=== PATIENT | male | born 1945 | race Caucasian/White ===

== ENCOUNTER 2022-10-25 11:23 | Outpatient (REF) | payer MEDICARE, SELFPAY ==
--- NOTE | ~2022-10-25 | XR_ITS ---
EXAMINATION: XR THORACIC SPINE CLINICAL INFORMATION: Pain not resolving. COMPARISON: None available. TECHNIQUE: 3 views of the thoracic spine were obtained. FINDINGS: There is no fracture or bone destruction seen and the vertebral alignment is normal. Mild degenerative changes are seen with mild disc space narrowing throughout and spondylitic endplate changes. XR/XR thoracic spine 3V IMPRESSION: Mild degenerative changes. No acute finding.
== END 2022-10-25 11:24 | disposition home or self-care (01) ==
LOC: HO.XRAY 11:23
PROVIDERS: PCP Nurse Practitioner Family; Visit Provider Chiropractor
DX: M54.6 Pain in thoracic spine (principal)
CPT/HCPCS: 72072

== ENCOUNTER 2022-12-07 10:50 | Outpatient (REF) | payer MEDICARE, SELFPAY ==
--- NOTE | ~2022-12-07 | XR_ITS ---
EXAMINATION: XR CERVICAL SPINE CLINICAL INFORMATION: Cervical disc disorder. COMPARISON: CT cervical spine dated 12/11/2022. TECHNIQUE: Frontal, odontoid and lateral views of the cervical spine were obtained. FINDINGS: Vertebral body heights are normal. At C3-C4, there is a 2 mm anterolisthesis. At C4-C5, there is a 2 mm anterolisthesis. At C5-C6 and C6-C7, there is marked disc space narrowing. No acute fracture or spondylolisthesis is seen. This multi-level cervical spondylosis and facet arthropathy. The posterior elements are intact. The dens is intact. No prevertebral soft tissue swelling is seen. XR/XR cervical spine 2V IMPRESSION: 1. There is marked degenerative disease at C5-C6 and C6-C7, and mild degenerative disc disease seen at C3-C4 and C4-C5. 2. There is multi-level cervical spondylosis and facet arthropathy.
[2022-12-07 14:06] LABS: MANUAL DIFF FLAG NO
[2022-12-07 14:09] LABS: Urine Cytology See Pathology rpt
[2022-12-07 14:17] LABS: Basophils Percent Auto 0.4 % (0-2); Eosinophils Absolute Auto 0.1 X10*3/uL (0.0-0.4); Eosinophils Percent Auto 1.3 % (0-4); Hematocrit 48.4 % (42.0-52.0); Hemoglobin 15.9 g/dl (14.0-18.0); Imm Gran Abs Auto 0.06 X10*3/uL (0.00-0.03); Imm Gran Pct Auto 0.6 % (0.0-0.4); Lymphocytes Absolute Auto 1.6 X10*3/uL (1.2-4.9); Lymphocytes Percent Auto 15.1 % (20-40); Mean Corpuscular HGB Conc 32.9 g/dl (31.0-36.0); Mean Corpuscular Hemoglobin 31.7 pg (27.0-33.0); Mean Corpuscular Volume 96.6 fL (80.0-98.0); Mean Platelet Volume 10.4 fL (9.4-12.4); Monocytes Absolute Auto 0.7 X10*3/uL (0.1-1.2); Monocytes Percent Auto 6.9 % (2-11); Neutrophils Absolute Auto 8.1 x10*3/uL (2.0-8.3); Neutrophils Percent Auto 75.7 % (45-73); Platelet Count 302 X10*3/uL (160-400); Red Blood Count 5.01 X10*6/uL (4.60-5.80); Red Cell Distribution Width 12.4 % (11.0-16.0); White Blood Count 10.7 X10*3/uL (4.8-10.8)
[2022-12-07 14:20] LABS: Appearance Urine Clear; Color Urine Yellow; Glucose Urine UA Negative (Negative); Leukocyte Esterase Urine Negative (Negative); Nitrite Urine Negative (Negative); UMIC TRIGGER UACC YES; Urine Blood Trace (Negative); Urine Ketones Negative (Negative); Urine Protein Negative (Neg-Trace)
[2022-12-07 14:26] LABS: Bacteria Urine None Seen (None Seen); Hyaline Casts Urine 0-2 /LPF (0-2); Squamous Epithelial Cell Urine 0-2 /HPF (0-2); WBC Urine 0-5 /HPF (0-5)
[2022-12-07 14:27] LABS: Alanine Aminotransferase 28 U/L (0-40); Albumin Level 4.5 g/dL (3.5-5.0); Alkaline Phosphatase 127 U/L (39-117); Anion Gap 16 (12-20); Aspartate Amino Transferase 23 U/L (5-37); Bilirubin Total 0.7 mg/dL (0.0-1.0); Blood Urea Nitrogen 15 mg/dL (9-16); Calcium 9.7 mg/dL (8.4-10.2); Carbon Dioxide 27 mmol/L (22-29); Chloride 100 mmol/L (96-108); Cholesterol 248 mg/dL; Estimated Glomerular Filt Rate > 60; Glucose Fasting 92 mg/dL (60-99); HDL Cholesterol 42 mg/dL; LDL Cholesterol Calculated 179 mg/dl; Potassium 4.5 mmol/L (3.3-5.1); Sodium 138 mmol/L (135-145); Total Protein 7.3 g/dL (6.5-8.0); Triglycerides 139 mg/dL
[2022-12-07 14:45] LABS: Prostate Specific Antigen Scr 7.08 ng/mL (<0.05-4.0); TSH reflex Free T4 1.49 uIU/mL (0.32-4.0)
== END 2022-12-07 10:51 | disposition home or self-care (01) ==
LOC: HO.HMGCLDS 10:50
PROVIDERS: PCP Nurse Practitioner Family; Visit Provider Nurse Practitioner Family
DX: Z12.5 Encounter for screening for malignant neoplasm of prostate (principal); I10 Essential (primary) hypertension; R31.9 Hematuria, unspecified; M50.90 Cervical disc disorder, unspecified, unspecified cervical region
CPT/HCPCS: 36415; 72040; 80053; 80061; 81001; 84153; 84443; 85025; 87086; 88112

== ENCOUNTER 2022-12-11 10:49 | Emergency (ER) | payer MEDICARE, SELFPAY ==
--- NOTE | ~2022-12-11 | XR_ITS ---
EXAMINATION: XR CHEST CLINICAL INFORMATION: Reason for Exam Hand numbness COMPARISON: Thoracic spine radiographs 10/25/2022 TECHNIQUE: One view of the chest FINDINGS: Lines and tubes: EKG leads overlie the patient. Low lung volumes with asymmetric elevation of the right hemidiaphragm. Few patchy left retrocardiac opacities may reflect atelectasis, aspiration or infection. No pleural effusion. No pneumothorax. Normal cardiomediastinal silhouette. XR/XR chest 1V IMPRESSION: 1. Low lung volumes with asymmetric elevation of the right hemidiaphragm. 2. Few patchy left retrocardiac opacities may reflect atelectasis, aspiration or infection.
--- NOTE | ~2022-12-11 | CT_ITS ---
EXAMINATION: CT BRAIN AND CERVICAL SPINE WITHOUT CONTRAST CLINICAL INDICATIONS: Left hand numbness. COMPARISON: None. TECHNIQUE: 5 mm thin axial and reformatted 2 mm thin sagittal and coronal images of brain were obtained. Subsequently axial 3 mm thin and reformatted 2 mm thin sagittal coronal images of cervical spine were obtained. DLP: 1329 mGy-cm. FINDINGS: BRAIN: There is no acute intra-axial, extra-axial bleed, masses or midline shift. There is no acute infarction evolution. There is no edema. The quiroz to white matter difference is maintained normal. The lateral ventricles are symmetrical in size and configuration, but moderately enlarged. Bone windows reveal no calvarial abnormality. There is [id number] mucoperiosteal thickening of the right maxillary sinus. The rest of the paranasal sinuses and mastoid air cells are well-aerated. CERVICAL SPINE: There is mild straightening of cervical lordosis. The vertebral heights and alignment are normal. There is loss of C5-C6, C6-C7 and C7-T1 disc heights. The craniovertebral junction and the C1-C2 alignment is normal. There is moderate left C2-C3, C3-C4 and C4-C5 facet joint arthropathy. There is no acute fracture, dislocation or subluxation. The prevertebral and paravertebral soft tissues are normal. There is a 4 mm hypodensity in the left parotid gland. Otherwise the parotid and submandibular glands are symmetric and normal. The thyroid lobes are symmetric and normal. CT/CT cervical spine wo IV con IMPRESSION: 1. No acute intracranial process seen. 2. Degenerative disc changes C5-C6, C6-C7 and C7-T1 disc levels. No visible acute fracture, dislocation or subluxation seen.
--- NOTE | ~2022-12-11 | CT_ITS ---
EXAMINATION: CT BRAIN AND CERVICAL SPINE WITHOUT CONTRAST CLINICAL INDICATIONS: Left hand numbness. COMPARISON: None. TECHNIQUE: 5 mm thin axial and reformatted 2 mm thin sagittal and coronal images of brain were obtained. Subsequently axial 3 mm thin and reformatted 2 mm thin sagittal coronal images of cervical spine were obtained. DLP: 1329 mGy-cm. FINDINGS: BRAIN: There is no acute intra-axial, extra-axial bleed, masses or midline shift. There is no acute infarction evolution. There is no edema. The quiroz to white matter difference is maintained normal. The lateral ventricles are symmetrical in size and configuration, but moderately enlarged. Bone windows reveal no calvarial abnormality. There is apuek-mf-pvhvmajo mucoperiosteal thickening of the right maxillary sinus. The rest of the paranasal sinuses and mastoid air cells are well-aerated. CERVICAL SPINE: There is mild straightening of cervical lordosis. The vertebral heights and alignment are normal. There is loss of C5-C6, C6-C7 and C7-T1 disc heights. The craniovertebral junction and the C1-C2 alignment is normal. There is moderate left C2-C3, C3-C4 and C4-C5 facet joint arthropathy. There is no acute fracture, dislocation or subluxation. The prevertebral and paravertebral soft tissues are normal. There is a 4 mm hypodensity in the left parotid gland. Otherwise the parotid and submandibular glands are symmetric and normal. The thyroid lobes are symmetric and normal. CT/CT head/brain wo IV con IMPRESSION: 1. No acute intracranial process seen. 2. Degenerative disc changes C5-C6, C6-C7 and C7-T1 disc levels. No visible acute fracture, dislocation or subluxation seen.
[2022-12-11 10:53] VITALS: BP 173/82; PULSE 86; RESP 18; TEMP 36.8; O2SAT 97; BMI 30.7
--- NOTE | 2022-12-11 10:54 | ECG_ITS ---
Test Reason : HAND NUMBNESS Blood Pressure : / mmHG Vent. Rate : 082 BPM Atrial Rate : 082 BPM P-R Int : 190 ms QRS Dur : 070 ms QT Int : 346 ms P-R-T Axes : 032 030 065 degrees QTc Int : 404 ms Normal sinus rhythm Nonspecific T wave abnormality Abnormal ECG No previous ECGs available Referred By: Generic ED Physician Electronically Signed By:NANDO CARMONA
--- NOTE | 2022-12-11 11:39 | ED_ITS ---
HPI - Neuro Symptoms/Deficit General Chief Complaint: Neuro Symptoms/Deficit Stated Complaint: high bp l arm and hand numbness Time Seen by Provider: 12/11/22 11:31 Source: patient, RN notes reviewed and old records reviewed Mode of arrival: ambulatory History of Present Illness HPI Narrative: 77-year-old male with a past medical history of Alzheimer's, asthma, GERD, insomnia, osteoarthritis, sleep apnea, vitamin-D deficiency, presenting to ED complaining of left 1st-3rd digit numbness/tingling x1 week with mild radiation up LUE. Daughter reports patient recently saw PCP, had HTN in office was started on losartan/HCTZ, discussed numbness had outpatient neck x-ray and EMG/nerve conduction testing ordered. 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 Denies headache, vision changes/loss, weakness, CP/SOB, headache, lightheadedness/dizziness. Denies taking anticoagulation Onset (ago): week(s) Related Data Home Medications Medication Instructions Recorded Confirmed albuterol sulfate 90 mcg/actuation 2 puff inhalation Q6-8H 12/06/22 12/06/22 aerosol inhaler cholecalciferol (vitamin D3) 50 50 mcg PO DAILY 12/06/22 12/06/22 mcg (2,000 unit) capsule fluticasone 250 mcg-salmeterol 50 1 ea inhalation BID 12/06/22 12/06/22 mcg/dose blistr powdr for inhalation (Jordin Inhub) omeprazole 20 mg capsule,delayed 20 mg PO BID 12/06/22 12/06/22 release Previous Rx's Medication Instructions Recorded losartan 50 mg-hydrochlorothiazide 1 tab PO DAILY 30 days #30 tabs 12/06/22 12.5 mg tablet rosuvastatin 10 mg tablet 10 mg PO DAILY #90 tabs 12/07/22 Allergies Allergy/AdvReac Type Severity Reaction Status Date / Time No Known Allergies Allergy Verified 12/06/22 14:29 Review of Systems Review of Systems: Constitutional: No Fever, No Chills, No Fatigue, No Malaise ENT/Mouth: No Ear Pain, No Nasal Congestion, No sore throat, No Rhinorrhea, No Swallowing Difficulty Eyes: No Eye Pain, No Swelling, No Redness, No Vision Changes Cardiovascular: No Chest Pain, No SOB, No Edema, No Palpitations Respiratory: No Cough, No Sputum, No Wheezing, No Smoke Exposure, No Dyspnea Gastrointestinal: No Nausea, No Vomiting, No Diarrhea, No Constipation, No Abdominal pain Genitourinary: No irregular bleeding, No Dysuria, No Urinary Frequency, No Hematuria Musculoskeletal: +neck pain, No Myalgias, No Joint Swelling Skin: No Skin Lesions, No rash Neuro: No Weakness, + Numbness, + Paresthesias, No Loss of Consciousness, No Dizziness, No Headache Yes all other systems are reviewed and are negative Constitutional: Constitutional: Reports as per HPI Neurologic: Denies Abnormal speech present and Denies Sensory deficit (Neuro) [facility] Past Medical History Attestation statement: The following information was validated with the patient. Source: old records reviewed Medical History Alzheimer disease Asthma GERD (gastroesophageal reflux disease) Impotence Insomnia Lipoma Osteoarthritis Short-term memory loss Sleep apnea Testicular hypofunction Vitamin D deficiency Social History Social History Housing: Apartment Patient Tobacco Use Status: Never used Tobacco Smoked in Last 30 Days: No Second Hand Smoke Exposure: No Use of substances other than those prescribed or required for medical reasons: No Advance Directives: Yes Advance Directives on File: No service: Yes Current occupational status: retired Cognitive needs: No Hearing needs: No Vision needs: No Physical Exam Vital Signs: Vital Signs: Last Vital Signs Temp 98.2 F 12/11/22 14:30 Pulse 71 12/11/22 14:30 Resp 15 12/11/22 14:30 BP 140/78 H 12/11/22 14:30 Pulse Ox 96 12/11/22 14:30 O2 Del Method Room Air 12/11/22 14:30 BMI result Body Mass Index 30.7 Const: General: cooperative, healthy appearing and no acute distress Orientation/consciousness: patient oriented x3 Limitations: no limitations HEENT: Head: Yes normal to inspection and Yes atraumatic Ears: hearing grossly normal bilaterally General nose exam: Normal external nose present Face and sinus: Yes normal facial exam Throat: Yes posterior oropharynx normal, Yes uvula midline, No uvula laterally displaced and No uvular edema Eyes: General: appearance normal, both eyes and all related structures Pupils: Equal, round and reactive pupils present EOM: EOMs intact bilaterally Neck: Other: + palpable soft tissue lump noted to left posterior neck. No overlying erythema/warmth. Nontender Neck: Yes no meningeal signs and No anterior neck swelling Resp: Effort & Inspection: normal respiratory effort and no respiratory distress Auscultation: clear to auscultation bilaterally Cardio: Rate: regular rate Heart sounds: S1 normal heart sound present and S2 normal heart sound present GI: Inspection: Yes normal to inspection Palpation (GI): Soft to palpation, nontender, no guarding and not rigid : General: Yes no CVA tenderness Back/Spine/Pelvis: Back: no CVA tenderness Skin: Rashes: no rashes Wounds: no wounds Neuro: General: patient oriented x3, tone normal, moves all extremities, no meningeal signs, no focal motor deficits and CN's II-XI intact bilaterally Cr anial nerves: Yes CN's II-XII intact bilaterally, Yes Equal, round and reactive pupils present and Yes Bilaterally intact EOM present Cognition (Neuro): normal cognition (At baseline) Speech: No Abnormal speech present Gait exam (Neuro): Normal gait present Motor exam (neuro): 5/5 motor strength present throughout Sensory Exam: No Sensory deficit (Neuro) Extrem: General: Yes normal to inspection and Yes no pedal edema Course Course Course Narrative: -1300--no leukocytosis. Labs otherwise reassuring. UA negative XR chest 1V IMPRESSION: 1.? Low lung volumes with asymmetric elevation of the right hemidiaphragm. 2.? Few patchy left retrocardiac opacities may reflect atelectasis, aspiration or infection.? -1511--CT head/brain wo IV con/CT cervical spine wo IV con IMPRESSION: 1.? No acute intracranial process seen. ? 2.? Degenerative disc changes C5-C6, C6-C7 and C7-T1 disc levels. No visible acute fracture, dislocation or subluxation seen. ? > Results discussed with patient and family. Recommended close follow-up with PCP in follow-up for previously ordered neuromuscular stimulation testing. Discussed worrisome signs and symptoms and strict return precautions, and when to return to the emergency department. They verbalized understanding and feel safe for discharge at this time. Medical Decision Making Medical Decision Making MDM Narrative: 77-year-old male with a past medical history of Alzheimer's, asthma, GERD, insomnia, osteoarthritis, sleep apnea, vitamin-D deficiency, presenting to ED complaining of left 1st-3rd digit numbness/tingling x1 week with mild radiation up LUE. On exam vital signs stable, NAD, nontoxic appearing, no focal neuro deficits. Distal pulses intact. Sensation intact to light touch. Suspected lipoma to posterior neck without evidence of infection. Concern for subacute CVA vs metabolic abnormalities vs radiculopathy/nerve compression. Low suspicion for acute CVA/TIA, no evidence of infection Plan: EKG, labs, UA, CXR, head/C-spine CT Please refer to course for remaining clinical decision making, interpretation of labs/imaging results, and discussions with consultants and/or family members. Differential Diagnosis Differential Diagnoses: The differential diagnosis associated with the presentation includes As above Admission/Observation Consideration of admission/observation: Escalation of care including admission/observation considered Lab Data MDM Lab Attestation statement: I reviewed the patient's lab results. 12/11/22 12:04 12/11/22 12:04 Labs: Lab Results 12/11/22 12/11/22 12/11/22 Range/Units 12:04 12:04 12:04 WBC 9.6 (4.8-10.8) X10*3/uL RBC 4.72 (4.60-5.80) X10*6/uL Hgb 14.8 (14.0-18.0) g/dl Hct 45.4 (42.0-52.0) % MCV 96.2 (80.0-98.0) fL MCH 31.4 (27.0-33.0) pg MCHC 32.6 (31.0-36.0) g/dl RDW 12.1 (11.0-16.0) % Plt Count 277 (160-400) X10*3/uL MPV 9.5 (9.4-12.4) fL Immature Gran % (Auto) 0.3 (0.0-0.4) % Neut % (Auto) 74.6 H (45-73) % Lymph % (Auto) 14.9 L (20-40) % [place] % (Auto) 8.5 (2-11) % Eos % (Auto) 1.3 (0-4) % Baso % (Auto) 0.4 (0-2) % Lymph # (Auto) 1.4 (1.2-4.9) X10*3/uL [place] # (Auto) 0.8 (0.1-1.2) X10*3/uL Eos # (Auto) 0.1 (0.0-0.4) X10*3/uL Baso # (Auto) 0.0 (0.0-0.2) X10*3/uL Abs Immat Gran (auto) 0.03 (0.00-0.03) X10*3/uL Absolute Neuts (auto) 7.1 (2.0-8.3) x10*3/uL Absolute Nucleated RBC 0.000 (0.0-0.012) X10*3/uL Nucleated RBC % (auto) 0.0 (0.0-0.2) /100WBC PT 11.1 (10.0-13.1) SEC INR 1.0 (0.9-1.1) Sodium 139 (135-145) mmol/L Potassium 4.0 (3.3-5.1) mmol/L Chloride 100 (96-108) mmol/L Carbon Dioxide 30 H (22-29) mmol/L Anion Gap 13 (12-20) BUN 16 (9-16) mg/dL Creatinine 0.99 (0.5-1.4) mg/dL Estim Creat Clear Calc 70.8 Estimated GFR > 60 Random Glucose 110 (60-115) mg/dL Calcium 9.5 (8.4-10.2) mg/dL Magnesium 2.3 (1.6-2.6) mg/dL Total Bilirubin 0.7 (0.0-1.0) mg/dL Direct Bilirubin 0.2 (0.0-0.5) mg/dL AST 25 (5-37) U/L ALT 32 (0-40) U/L Alkaline Phosphatase 120 H (39-117) U/L Troponin I High Sens (<3.5-35.0) ng/L Total Protein 7.0 (6.5-8.0) g/dL Albumin 4.4 (3.5-5.0) g/dL Urine Color Urine Appearance Urine pH (5.0-9.0) Ur Specific [place] (1.005-1.025) Urine Protein (Neg-Trace) mg/dL Urine Glucose (UA) (Negative) mg/dL Urine Ketones (Negative) mg/dL Urine Blood (Negative) Urine Nitrite (Negative) Ur Leukocyte Esterase (Negative) 12/11/22 12/11/22 Range/Units 12:04 12:04 WBC (4.8-10.8) X10*3/uL RBC (4.60-5.80) X10*6/uL Hgb (14.0-18.0) g/dl Hct (42.0-52.0) % MCV (80.0-98.0) fL MCH (27.0-33.0) pg MCHC (31.0-36.0) g/dl RDW (11.0-16.0) % Plt Count (160-400) X10*3/uL MPV (9.4-12.4) fL Immature Gran % (Auto) (0.0-0.4) % Neut % (Auto) (45-73) % Lymph % (Auto) (20-40) % [place] % (Auto) (2-11) % Eos % (Auto) (0-4) % Baso % (Auto) (0-2) % Lymph # (Auto) (1.2-4.9) X10*3/uL [place] # (Auto) (0.1-1.2) X10*3/uL Eos # (Auto) (0.0-0.4) X10*3/uL Baso # (Auto) (0.0-0.2) X10*3/uL Abs Immat Gran (auto) (0.00-0.03) X10*3/uL Absolute Neuts (auto) (2.0-8.3) x10*3/uL Absolute Nucleated RBC (0.0-0.012) X10*3/uL Nucleated RBC % (auto) (0.0-0.2) /100WBC PT (10.0-13.1) SEC INR (0.9-1.1) Sodium (135-145) mmol/L Potassium (3.3-5.1) mmol/L Chloride (96-108) mmol/L Carbon Dioxide (22-29) mmol/L Anion Gap (12-20) BUN (9-16) mg/dL Creatinine (0.5-1.4) mg/dL Estim Creat Clear Calc Estimated GFR Random Glucose (60-115) mg/dL Calcium (8.4-10.2) mg/dL Magnesium (1.6-2.6) mg/dL Total Bilirubin (0.0-1.0) mg/dL Direct Bilirubin (0.0-0.5) mg/dL AST (5-37) U/L ALT (0-40) U/L Alkaline Phosphatase (39-117) U/L Troponin I High Sens < 2.7 (<3.5-35.0) ng/L Total Protein (6.5-8.0) g/dL Albumin (3.5-5.0) g/dL Urine Color Yellow Urine Appearance Clear Urine pH 6.5 (5.0-9.0) Ur Specific [place] 1.015 (1.005-1.025) Urine Protein Negative (Neg-Trace) mg/dL Urine Glucose (UA) Negative (Negative) mg/dL Urine Ketones Negative (Negative) mg/dL Urine Blood Negative (Negative) Urine Nitrite Negative (Negative) Ur Leukocyte Esterase Negative (Negative) Radiology Impression Discussion of test interpretation with radiology: I have reviewed the radiologist's reading. External Record Review External record reviewed: Inpatient record, Office record, Outpatient record, Prior outpatient labs, Prior outpatient radiology, Primary care record and Outside ED record Tests considered The following testing was considered but not selected: As above Discharge Plan Discharge Clinical Impression: Pneumonia Prescriptions: No Action rosuvastatin 10 mg tablet 10 mg PO DAILY Qty: 90 0RF albuterol sulfate 90 mcg/actuation HFA aerosol inhaler 2 puff inhalation Q6-8H omeprazole 20 mg capsule,delayed release(DR/EC) 20 mg PO BID fluticasone propion-salmeterol [Wixela Inhub] 250-50 mcg/dose blister with device 1 ea inhalation BID cholecalciferol (vitamin D3) 50 mcg (2,000 unit) capsule 50 mcg PO DAILY losartan-hydrochlorothiazide 50-12.5 mg tablet 1 tab PO DAILY 30 Days Qty: 30 3RF
[2022-12-11 12:09] LABS: MANUAL DIFF FLAG NO
[2022-12-11 12:11] VITALS: BP 138/81; PULSE 82; RESP 16; TEMP 37.2; O2SAT 96
[2022-12-11 12:12] LABS: Basophils Percent Auto 0.4 % (0-2); Eosinophils Absolute Auto 0.1 X10*3/uL (0.0-0.4); Eosinophils Percent Auto 1.3 % (0-4); Hematocrit 45.4 % (42.0-52.0); Hemoglobin 14.8 g/dl (14.0-18.0); Imm Gran Abs Auto 0.03 X10*3/uL (0.00-0.03); Imm Gran Pct Auto 0.3 % (0.0-0.4); Lymphocytes Absolute Auto 1.4 X10*3/uL (1.2-4.9); Lymphocytes Percent Auto 14.9 % (20-40); Mean Corpuscular HGB Conc 32.6 g/dl (31.0-36.0); Mean Corpuscular Hemoglobin 31.4 pg (27.0-33.0); Mean Corpuscular Volume 96.2 fL (80.0-98.0); Mean Platelet Volume 9.5 fL (9.4-12.4); Monocytes Absolute Auto 0.8 X10*3/uL (0.1-1.2); Monocytes Percent Auto 8.5 % (2-11); Neutrophils Absolute Auto 7.1 x10*3/uL (2.0-8.3); Neutrophils Percent Auto 74.6 % (45-73); Platelet Count 277 X10*3/uL (160-400); Red Blood Count 4.72 X10*6/uL (4.60-5.80); Red Cell Distribution Width 12.1 % (11.0-16.0); White Blood Count 9.6 X10*3/uL (4.8-10.8)
[2022-12-11 12:13] LABS: Appearance Urine Clear; Color Urine Yellow; Glucose Urine UA Negative (Negative); Leukocyte Esterase Urine Negative (Negative); Nitrite Urine Negative (Negative); PH 6.5 (5.0-9.0); Specific Gravity - Urine 1.015 (1.005-1.025); Urine Blood Negative (Negative); Urine Ketones Negative (Negative); Urine Protein Negative (Neg-Trace)
[2022-12-11 12:18] LABS: Prothrombin Time 11.1 SEC (10.0-13.1)
[2022-12-11 12:41] LABS: Alanine Aminotransferase 32 U/L (0-40); Albumin Level 4.4 g/dL (3.5-5.0); Alkaline Phosphatase 120 U/L (39-117); Anion Gap 13 (12-20); Aspartate Amino Transferase 25 U/L (5-37); Bilirubin Direct 0.2 mg/dL (0.0-0.5); Bilirubin Total 0.7 mg/dL (0.0-1.0); Blood Urea Nitrogen 16 mg/dL (9-16); Calcium 9.5 mg/dL (8.4-10.2); Carbon Dioxide 30 mmol/L (22-29); Chloride 100 mmol/L (96-108); Creatinine Clr Calc Pharmacy 70.8; Estimated Glomerular Filt Rate > 60; Glucose Random 110 mg/dL (60-115); Magnesium 2.3 mg/dL (1.6-2.6); Sodium 139 mmol/L (135-145)
[2022-12-11 12:53] LABS: Troponin-I High Sensitivity < 2.7 ng/L (<3.5-35.0)
[2022-12-11 14:30] VITALS: BP 140/78; PULSE 71; RESP 15; TEMP 36.8; O2SAT 96
== END 2022-12-11 15:44 | disposition home or self-care (01) ==
PROVIDERS: Physician Assistant; Emergency Provider Internal Medicine; PCP Nurse Practitioner Family
DX: J18.9 Pneumonia, unspecified organism (principal); R20.0 Anesthesia of skin; M50.33 Other cervical disc degeneration, cervicothoracic region; I10 Essential (primary) hypertension; E78.5 Hyperlipidemia, unspecified; G30.9 Alzheimer's disease, unspecified; F02.80 Dementia in other diseases classified elsewhere, unspecified severity, without behavioral disturbance, psychotic disturbance, mood disturbance, and anxiety; Z86.018 Personal history of other benign neoplasm; Z79.02 Long term (current) use of antithrombotics/antiplatelets; Z79.899 Other long term (current) drug therapy
CPT/HCPCS: 36415; 70450; 71045; 72125; 80048; 80076; 81003; 83735; 84484; 85025; 85610; 93005; 99284

== ENCOUNTER 2022-12-15 12:17 | Outpatient (REF) | payer MEDICARE, SELFPAY ==
--- NOTE | ~2022-12-15 | US_ITS ---
EXAMINATION: US RETROPERITONEAL COMPLETE (RENAL) CLINICAL INFORMATION: Hematuria, unspecified. COMPARISON: None available. TECHNIQUE: Real-time imaging of the kidneys and bladder. FINDINGS: RIGHT KIDNEY: 11.7 x 5.6 x 5.6 cm (SAG x AP x TRV). The kidney is normal in size, contour, and echogenicity. Renal cortical thickness is normal. No renal calculi or hydronephrosis. There is anechoic cyst in midpole measuring 1.4 x 1.7 x 1.4 cm. LEFT KIDNEY: 10.4 x 5.1 x 4.6 cm (SAG x AP x TRV). The kidney is normal in size, contour, and echogenicity. Renal cortical thickness is normal. No calculi or focal parenchymal lesions. No hydronephrosis. BLADDER: Well distended and normal. Bilateral ureteral jets are demonstrated. Prevoid bladder volume is 240 mL. Postvoid bladder volume is 41.4 mL. ADDITIONAL FINDINGS: The prostate is enlarged. It measures 56.9 mL volume. US/US retroperitoneal comp IMPRESSION: 1. Anechoic cyst midpole right kidney. 2. No echogenic stones or hydronephrosis seen. 3. Small postvoid residual bladder volume. 4. Moderate prostate enlargement.
== END 2022-12-15 12:18 | disposition home or self-care (01) ==
LOC: HO.US 12:17
PROVIDERS: PCP Nurse Practitioner Family; Visit Provider Nurse Practitioner Family
DX: R31.9 Hematuria, unspecified (principal)
CPT/HCPCS: 76770

== ENCOUNTER → 2022-12-31 09:37 | Outpatient (BNVA) | payer MEDICARE, SELFPAY | PROVIDERS: PCP Nurse Practitioner Family; Visit Provider Nurse Practitioner Family | DX: R31.0 Gross hematuria (principal); R97.20 Elevated prostate specific antigen [PSA] | CPT/HCPCS: 99202 ==

== ENCOUNTER 2023-01-04 11:57 | Outpatient (REF) | payer MEDICARE, SELFPAY ==
[2023-01-04 15:57] LABS: Blood Urea Nitrogen 18 mg/dL (9-16); Estimated Glomerular Filt Rate > 60
[2023-01-04 15:58] LABS: Gamma Glutamyl Transpeptidase 31 U/L (11-51)
[2023-01-04 16:02] LABS: PSA,Total (Free>4and<10) 7.17 ng/mL (0.00-4.00)
[2023-01-04 16:26] LABS: Appearance Urine Clear; Color Urine Yellow; Glucose Urine UA Negative (Negative); Leukocyte Esterase Urine Negative (Negative); Nitrite Urine Negative (Negative); PH 7.5 (5.0-9.0); Specific Gravity - Urine 1.015 (1.005-1.025); Urine Blood Negative (Negative); Urine Ketones Negative (Negative); Urine Protein Negative (Neg-Trace)
[2023-01-05 13:46] LABS: Urine Cytology See Pathology rpt
[2023-01-09 05:48] LABS: Alk.Phos Iso. Macrohepatic 0 % (<=0); Alk.Phos Isoenzymes Bone 35 % (28-66); Alk.Phos Isoenzymes Intest 10 % (1-24); Alk.Phos Isoenzymes Liver 55 % (25-69); Alk.Phos Isoenzymes Placental 0 % (<=0); Alk.Phos Isoenzymes Total 93 U/L (35-144)
[2023-01-10 12:09] LABS: Free Prostate Spec Ag 0.8 ng/mL; Percent Free Prostate Spec Ag 12 % (calc) (>25); Prostate Specific Ag Total 6.9 ng/mL (< OR = 4.0)
== END 2023-01-04 11:58 | disposition home or self-care (01) ==
LOC: HO.HMGCLDS 11:57
PROVIDERS: Absent Provider Nurse Practitioner Family; PCP Nurse Practitioner Family; Visit Provider Nurse Practitioner Family
DX: Z12.5 Encounter for screening for malignant neoplasm of prostate (principal); R74.8 Abnormal levels of other serum enzymes; R31.0 Gross hematuria; R97.20 Elevated prostate specific antigen [PSA]; R31.9 Hematuria, unspecified; I10 Essential (primary) hypertension
CPT/HCPCS: 36415; 81003; 82565; 82977; 84080; 84153; 84154; 84520; 88112

== ENCOUNTER 2023-02-01 11:23 | Outpatient (REF) | payer MEDICARE, SELFPAY ==
[2023-02-01 14:40] LABS: Cholesterol 149 mg/dL; HDL Cholesterol 52 mg/dL; LDL Cholesterol Calculated 73 mg/dl; Triglycerides 123 mg/dL
== END 2023-02-01 11:24 | disposition home or self-care (01) ==
LOC: HO.HMGCLDS 11:23
PROVIDERS: PCP Nurse Practitioner Family; Visit Provider Nurse Practitioner Family
DX: E78.5 Hyperlipidemia, unspecified (principal)
CPT/HCPCS: 36415; 80061

== ENCOUNTER 2023-02-04 09:35 | Outpatient (REF) | payer MEDICARE, SELFPAY ==
--- NOTE | ~2023-02-04 | CT_ITS ---
EXAMINATION: CT ABDOMEN AND PELVIS WITHOUT AND WITH CONTRAST CLINICAL INFORMATION: Gross hematuria. COMPARISON: Ultrasound retroperitoneum 12/15/2022. TECHNIQUE: Noncontrast CT of the abdomen and pelvis is performed followed by split bolus contrast-enhanced images using 85 mL Omnipaque 350 contrast.? Postcontrast imaging is performed during the combined nephrogram and excretion phase. Sagittal and coronal reformatted images were obtained on the technologist's workstation for both the precontrast and postcontrast phases. This CT examination was performed using dose optimization techniques as appropriate, variously including the following: *Automated exposure control *Adjustment of mA and/or kV according to patient size (this includes techniques or standardized protocols for targeted exams where dose is matched to indication/reason for exam; i.e. extremities or head) *Use of iterative reconstruction technique DLP: 1002 mGy-cm FINDINGS: LUNG BASES: The lung bases are expanded. There is a 4 mm nodule left lung base. LIVER, GALLBLADDER, AND BILIARY TREE: The liver is normal in size, shape, and attenuation. No focal hepatic lesion or biliary ductal dilatation is present. The gallbladder is unremarkable with no evidence of radiopaque gallstones, gallbladder wall thickening, or obvious pericholecystic inflammatory changes. PANCREAS: Unremarkable. SPLEEN: Unremarkable. ADRENAL GLANDS: Unremarkable. KIDNEYS AND URETERS: The kidneys are normal in size, shape, and attenuation. The left kidney measures 10.8 cm in length and the right kidney measures 10.9 cm in length. No hydronephrosis, hydroureter, or calculi seen. There is good opacification of bilateral kidney pelvises and ureters with no intraluminal filling defect or narrowing. There is mild bilateral perinephric stranding. There is a 1.8 cm partially exophytic cyst midpole right kidney. BLADDER: No bladder calculi or bladder wall thickening seen. GASTROINTESTINAL TRACT: The small and large bowel are unremarkable. The appendix is unremarkable. ABDOMINAL WALL: No significant hernia is appreciated. LYMPH NODES: Normal. VASCULAR: Unremarkable. PELVIC VISCERA: There is no free air or free fluid. The prostate gland is minimally enlarged. Periprostatic fat planes are preserved. OSSEUS STRUCTURES: No aggressive lytic or sclerotic process seen. CT/CT urogram IMPRESSION: 1. No radiopaque urolith or hydroureteronephrosis. There is a partially exophytic cyst midpole right kidney. 2. Mild prostate enlargement. 3. There is 4 mm nodule left lung base.
[2023-02-04] MEDS: iohexoL 350 MG/ML 100 ML INFUS..BTL IV (12:04)
== END 2023-02-04 09:36 | disposition home or self-care (01) ==
LOC: HO.CT 09:35
PROVIDERS: PCP Nurse Practitioner Family; Visit Provider Nurse Practitioner Family
DX: R31.0 Gross hematuria (principal)
CPT/HCPCS: 74178; Q9967

== ENCOUNTER 2023-02-09 12:33 | Outpatient (AMB) | payer MEDICARE, SELFPAY ==
--- NOTE | 2023-02-09 12:59 | A.OFFVIS_ITS ---
Intake Intake Visit Reasons: Cystoscopy/CT(02/04) Intake Note: Patient is present for Cystoscopy Urology Med: None Antibiotic Allergy: None Blood Thinner: None Disposable Cystoscope LOT: [id number] EXP: 12/06/24 Allergies No Known Allergies Allergy (Verified 02/09/23 13:01) Medication List - Last Reconciled 02/09/23 by Kristopher Vela MD albuterol sulfate 90 mcg/actuation 2 puffs inhalation Q6-8H cholecalciferol (vitamin D3) 50 mcg PO DAILY finasteride 5 mg PO DAILY 90 days fluticasone propion-salmeterol 250-50 mcg/dose (Wixela Inhub) 1 ea inhalation BID losartan-hydrochlorothiazide 50-12.5 mg 1 tab PO DAILY 30 days omeprazole 20 mg PO BID rosuvastatin 10 mg PO DAILY HPI HPI Comments History of Present Illness Details Oswaldo is a pleasant 77-year-old male patient of Dr. Kirkland who was accompanied by his daughter Lynette at today's visit. He has a past medical history of Alzheimer's disease, asthma, GERD, insomnia, osteoarthritis, sleep apnea, and vitamin-D deficiency. He presents to the office today as a new patient for an elevated PSA and gross hematuria. The daughter provides much of the information at today's visit as patient suffers from Alzheimer's disease. Patient recently moved here from [place]. In review of patient's chart it appears PSA 12/07 7.1. Recent retroperitoneal ultrasound results reviewed with the patient and his daughter today. Right kidney with no calculi, or hydronephrosis noted. There is an anechoic cyst in the mid pole measuring 1.4 x 1.7 x 1.4 cm. Left kidney with no lesions, calculi, or hydronephrosis noted. The bladder is well distended and normal. Bilateral ureteral jets are demonstrated. Prevoid bladder volume is 240 mL. Postvoid bladder volume is 41.4 mL. The prostate is enlarged. It measures approxitamtely 57 ml's. Discussed at length potential causes for elevated PSA as well as further gross hematuria workup. Patient denies any family history of prostate cancer. He denies any smoking history however has positive chemical exposure as he used to work at [email or web address] for many years. He otherwise denies any urinary issues or concerns at this time. He denies urinary urgency, urinary frequency, incontinence, nocturia, dysuria, foul smelling urine, changes to urinary stream, flank pain, fever, and or chills. He is happy with his current voiding parameters. Unable to obtain urine for urinalysis. PVR 22ml's. In office DALE; enlarged, smooth, no masses or nodules palpated. 01/07 6.9 12% Therapeutic plan - finasteride - 4 month follow-up PSA PFSH Medical History Alzheimer disease Asthma GERD (gastroesophageal reflux disease) Impotence Insomnia Lipoma Osteoarthritis Short-term memory loss Sleep apnea Testicular hypofunction Vitamin D deficiency Social History Housing: Apartment Patient Tobacco Use Status: Never used Tobacco Second Hand Smoke Exposure: No service: Yes Current occupational status: retired Cognitive needs: No Hearing needs: No Vision needs: No Review of Systems Const Denies chills and Denies fever(s) Card Reports no additional complaints and Denies syncope Resp Denies cough GI Denies abdominal pain and Denies heartburn Reports as per HPI and Denies change in libido Neuro Denies syncope Psych Denies change in libido Endo Denies change in libido Physical Exam Const General: cooperative, healthy appearing, comfortable and no acute distress Orientation/consciousness: patient oriented x3 HEENT Face and sinus: Yes normal facial exam Mouth: moist mucous membranes Neck Neck: Yes normal visual inspection, Yes full ROM and Yes trachea midline Chest Chest palpation & inspection: normal inspection of the chest Resp Effort & Inspection: normal respiratory effort, able to speak in complete sentences and no respiratory distress GI Inspection: Yes normal to inspection Back/Spine/Pelvis Cervical Spine: normal cervical lordosis Thoracic/Lumbar Spine: thoracic and lumbar spine normal to inspection Skin General skin exam: no rashes or lesions noted Neuro General: patient oriented x3, gait normal, tone normal and moves all extremities Extrem General: Yes normal to inspection and Yes capillary refill normal Office Procedures Cystoscopy Consent Discussed risk and benefit or proposed procedure with the patient. Information consent for procedure given to the patient. Discussed technical aspects, risks, benefits and alternatives in full. Addressed all of the patient's questions and concerns regarding the procedure. The patient demonstrated knowledge and understanding. They wish to proceed with this procedure. Preparation The patient was prepped in the usual manner. A barrel liner was present and in the room. Genitalia was prepped with betadine solution in a sterile manner. Lidocaine Jelly 2% was placed into the urethra and 16Fr flexible Olympus cystoscope was inserted into the meatus after adequate lubrication. Procedure Meatus normal position Urethra anterior posterior urethra normal Prostatic Urethra trilobar hypertrophy Bladder examination with retroflexion of cystoscope Bladder Orifices normal shape and position Bladder Capacity medium Trabeculations moderate Cellule Formation - Diverticulum Formation - Mucosal Erythema - Bladder Tumor - 74637-[id number] Procedure code (CPT) selection complete Office Meds lidocaine HCl Performing Provider: Kristopher Vela MD Administered by: MAURO Bocanegra on 02/09/23 13:17 Dose Route Admin Location Lot Number Expiration Date [place] [employer]ier [employer] 10 mL intra-urethral nitrofurantoin monohyd/m-cryst 100 mg Performing Provider: Kristopher Vela MD Administered by: MAURO Bocanegra on 02/09/23 13:17 Dose Route Admin Location Lot Number Expiration Date [facility] Cashier Gambling 100 mg PO Results AMB Urinalysis, Automated UA Leukoctes 0 Lata/uL Last Edit by Georgina Seaman [facility] on 02/09/23 13:18 UA Nitrite Negative Last Edit by Georgina Seaman [facility] on 02/09/23 13:18 UA Urobilinogen 0.2 mg/dL Last Edit by Georgina Seaman A on 02/09/23 13:1 8 UA Protein 0 mg/dL Last Edit by Georgina Seaman [facility] on 02/09/23 13:18 UA pH 7.5 Last Edit by Georgina Seaman [facility] on 02/09/23 13:18 UA Blood 0 Brenton/uL Last Edit by Georgina Seaman [facility] on 02/09/23 13:18 UA Specific [place] 1.010 Last Edit by Georgina Seaman [facility] on 02/09/23 13: 18 UA Ketone Negative Last Edit by Georgina Seaman A on 02/09/23 13:18 UA Bilirubin 0 mg/dL Last Edit by Georgina Seaman [facility] on 02/09/23 13:18 UA Glucose 0 mg/dL Last Edit by Georgina Seaman [facility] on 02/09/23 13:18 Results Reviewed Results Reviewed: Laboratory Last Values Urine pH (Auto) 7.5 02/09/23 13:07 Specific [place] (Auto) 1.010 02/09/23 13:07 Urine Protein (Auto) 0 mg/dL 02/09/23 13:07 Glucose (UA)(Auto) 0 mg/dL 02/09/23 13:07 Urine Ketones (Auto) Negative 02/09/23 13:07 Urine Blood (Auto) 0 [place]/uL 02/09/23 13:07 Urine Nitrite (Auto) Negative 02/09/23 13:07 Urine Bilirubin (Auto) 0 mg/dL 02/09/23 13:07 Urine Urobilinogen (Auto) 0.2 mg/dL 02/09/23 13:07 Leukocyte Esterase (Auto) 0 Lata/uL 02/09/23 13:07 Assessment & Plan Assessment & Plan (1) Microscopic hematuria: Code(s): R31.29 - Other microscopic hematuria (2) Bladder outlet obstruction: Code(s): N32.0 - Bladder-neck obstruction Plan Four month follow-up Orders: Orders Prostate Specific Antigen 4 Months R97.20 - Elevated prostate specific antigen [PSA] AMB Cystoscopy 02/09/23 R31.0 - Gross hematuria AMB Urinalysis Automated 02/09/23 R31.0 - Gross hematuria, Z13.9 - Encounter for screening, unspecified Medications: New finasteride 5 mg PO DAILY 90 tabs 1RF 90 days R97.20 - Elevated prostate specific antigen [PSA] Patient Instructions: Imaging studies, laboratory and physical exam results were discussed and reviewed in detail. No major barriers to patient understanding were identified. An opportunity to ask questions regarding the treatment plan was provided. All questions were answered. The patient expressed understanding and agreement with the above treatment plan. The patient is aware they should contact our office by phone for worsening of their current condition or the appearance of new urologic symptoms. Compliance is encouraged with any medications and followup testing that is ordered. It is a privilege to participate in the urologic care of your patient. If you have any questions or concerns regarding treatment for the above conditions, or other urologic issues, please do not hesitate to contact me. The office telephone contact is [phone]. This note is constructed using voice recognition software. While every effort has been made to ensure accuracy information clerk cashier errors may have been included. Yours sincerely, Dr Kristopher Vela MD, [facility] - Urology Providers of Expert, Compassionate Care for the Genitourinary System Coding Level of Care Code Est Pt Level 4 (31355) Diagnoses Microscopic hematuria R31.29 Bladder outlet obstruction N32.0 CPT Codes Cystoscopy - CPT: 58838-[id number] ([id number])
== END 2023-02-09 14:11 | disposition home or self-care (01) ==
PROVIDERS: PCP Nurse Practitioner Family; Visit Provider Urology
DX: N32.0 Bladder-neck obstruction (principal); R31.29 Other microscopic hematuria
CPT/HCPCS: 52000

== ENCOUNTER → 2023-02-09 12:33 | Outpatient (BNVA) | payer MEDICARE, SELFPAY | PROVIDERS: PCP Nurse Practitioner Family; Visit Provider Urology | DX: R31.29 Other microscopic hematuria (principal); N32.0 Bladder-neck obstruction | CPT/HCPCS: 52000 ==

== ENCOUNTER 2023-03-09 09:39 | Outpatient (REF) | payer MEDICARE, SELFPAY ==
--- NOTE | 2023-03-09 09:41 | EMG_ITS ---
Please see scanned EMG / Nerve Conduction Report. MTDD
== END 2023-03-09 09:40 | disposition home or self-care (01) ==
LOC: HO.NEURO 09:39
PROVIDERS: PCP Nurse Practitioner Family; Visit Provider Nurse Practitioner Family
DX: M50.90 Cervical disc disorder, unspecified, unspecified cervical region (principal); R20.0 Anesthesia of skin
CPT/HCPCS: 95885; 95910

== ENCOUNTER 2023-05-02 13:03 | Outpatient (AMB) | payer MEDICARE, SELFPAY ==
--- NOTE | 2023-05-02 13:04 | MHC.OFFVIS ---
Intake Vital Signs 05/02/23 13:04 Height 5 ft 8 in Intake Visit Reasons: Abnormal CT Chest Maint Mechanic Required: No Allergies No Known Allergies Allergy (Verified 05/02/23 13:04) HPI HPI Comments History of Present Illness Details the patient has a telephone visit today for new patient evaluation. The patient is a 77-year-old gentleman who has no underlying respiratory issues and had a abnormal finding on 1 of the imaging studies. Apparently the patient underwent a CT scan of the abdomen pelvis and was noted to have a small pulmonary nodule measuring 4 mm in size and is lower lung zones. The patient has not had any formal imaging studies of the chest however. Therefore is difficult to further address the pulmonary nodule in view of not being able to evaluate the whole lung parenchyma. The patient did also have a CT scan of the spine the cervical spine sometime in the spring that actually also demonstrated hypodensity, also measuring 4 mm on the parotid gland. This is something that may be have to be further evaluated as well. The patient currently is doing well from a respiratory status therefore we will hold off on any imaging studies. Will plan to do a formal CT scan of the chest to better address the pulmonary finding however. Once he does get the formal CT scan of the chest will review all the images together and make sure that this process is not progressing. COUNTS INCLUDE 234 BEDS AT THE [facility] Medical History (Updated 05/02/23 @ 21:15 by Woody Bustillos MD) Nodule of parotid gland Alzheimer disease Short-term memory loss Testicular hypofunction Lipoma Vitamin D deficiency Insomnia Osteoarthritis Impotence Asthma GERD (gastroesophageal reflux disease) Sleep apnea Social History Housing: Apartment Patient Tobacco Use Status: Never used Tobacco Second Hand Smoke Exposure: No service: Yes Current occupational status: retired Cognitive needs: No Hearing needs: No Vision needs: No Review of Systems Const Denies chills and Denies fever(s) ENT Reports no additional complaints Card Reports no additional complaints and Denies syncope Resp Denies cough and Denies wheezing GI Denies abdominal pain and Denies heartburn Skin/Breast Denies rash Neuro Denies syncope Carlos/Lymph Denies lymphadenopathy Aller/Immun Denies wheezing Physical Exam Const General: comfortable Orientation/consciousness: patient oriented x3 Resp Effort & Inspection: able to speak in complete sentences Neuro General: patient oriented x3 Assessment & Plan Assessment & Plan (1) Nodule of parotid gland: Comment: ...There is a 4 mm hypodensity in the left parotid gland. Code(s): K11.8 - Other diseases of salivary glands (2) Lung nodule: Code(s): R91.1 - Solitary pulmonary nodule Plan Formal CT chest f/u with PCP regarding the parodid F/U 6-8 weeks Orders: Orders CT chest wo IV con Today R91.1 - Solitary pulmonary nodule Telehealth Telehealth Location of provider rendering services: practice address Location of patient: address on file Patient Identification confirmed using: Name, : Yes Telehealth method: voice only Patient verbally consented to treatment: Yes Patient verbally consented to billing insurance company: Yes Patient informed of any privacy concerns related to visit: Yes Coding Level of Care Code Tele New Pt Level 4 (17301) Diagnoses Nodule of parotid gland K11.8 Lung nodule R91.1 Time Spent (min) 21
== END 2023-05-02 13:44 | disposition home or self-care (01) ==
LOC: HO.HPS 13:03
PROVIDERS: PCP Nurse Practitioner Family; Referring Provider Nurse Practitioner Family; Visit Provider Hospitalist
DX: K11.8 Other diseases of salivary glands (principal); R91.1 Solitary pulmonary nodule
CPT/HCPCS: 99443

== ENCOUNTER → 2023-05-02 13:03 | Outpatient (BNVA) | payer MEDICARE, SELFPAY | PROVIDERS: PCP Nurse Practitioner Family; Visit Provider Hospitalist ==

== ENCOUNTER 2023-05-16 15:10 | Outpatient (AMB) | payer MEDICARE, SELFPAY ==
--- NOTE | 2023-05-16 15:11 | A.OFFPC_ITS ---
Vital Signs 05/16/23 15:14 Height 5 ft 8 in Weight 214 lb BMI 32.5 BP 142/82 H Blood Pressure Location Rt brachial Position Sitting Pulse 74 Pulse Source Pulse Oximeter Pulse Oximetry (%) 96 Oxygen Delivery Method Room Air Intake Visit Reasons: 3m follow up Allergies No Known Allergies Allergy (Verified 05/16/23 15:14) Tobacco use date assessed: 12/06/22 Fall risk assessment: No Falls in past year Last assessed Fall Risk: 05/16/23 HPI 3m follow up HPI Details Pt had an MRI due to short-term memory loss in June of 2018 which showed mild diffuse cerebral atrophy and min quantity of chronic microangiopathic changes. He is currently taking namenda 5mg bid. Pt's short- term memory is still declining. He asks the same questions to his family multiple times. Will increase namenda to 10mg bid. Will also order repeat MRI for comparison. HTN: Blood pressure is stable, managed with losartan- hydrochlorothiazide 50-12.5mg. Dyslipidemia: On rosuvastatin 10mg. Will order la bs. Denies chest pain, shortness of breath, headache, dizziness, and blurred vision. Pt is following up with neurology due to numbness and tingling of his hands. Pt is also following up with urology and pulmonology. [facility] Medical History (Updated 05/16/23 @ 15:29 by ARASELI HernandezSANJEEV) Mild cognitive impairment Nodule of parotid gland Alzheimer disease Short-term memory loss Testicular hypofunction Lipoma Vitamin D deficiency Insomnia Osteoarthritis Impotence Asthma GERD (gastroesophageal reflux disease) Sleep apnea Social History Housing: Apartment Patient Tobacco Use Status: Never used Tobacco Second Hand Smoke Exposure: No service: Yes Current occupational status: retired Cognitive needs: No Hearing needs: No Vision needs: No Questionnaire Thrive Questionnaire Date Thrive assessed: 12/06/22 AUDIT C Alcohol Use Questionnaire (AUDIT-C) 1. How often do you have a drink containing alcohol?: Never 2. How many drinks containing alcohol do you have on a typical day when you are drinking?: 1 or 2 3. How often do you have six or more drinks on one occasion?: Never Total Score: 0 TRINIDAD-7 AMB Questionnaire TRINIDAD-7 Date TRINIDAD - 7 assessed: 12/06/22 Source: Developed by Drs. Karthik Espinosa, Ginger Carpio, Augusto Arellano and colleagues, with an educational breanna from [employer]. Review of Systems Const Reports as per HPI Physical exam (Primary Care) Vital Signs: Last Vital Signs Pulse 74 05/16/23 15:14 BP 142/82 H 05/16/23 15:14 Pulse Ox 96 05/16/23 15:14 Oxygen Delivery Method Room Air 05/16/23 15:14 BMI result Body Mass Index 32.5 Tobacco/Smoking Status: Tobacco use Status Tobacco use date assessed 12/06/22 05/16/23 15:13 Patient Tobacco Use Status Never used Tobacco 05/16/23 15:13 Thrive Assessment: Date of Thrive Assessment Date Thrive assessed 12/06/22 05/16/23 15:13 Const General: cooperative Orientation/consciousness: patient oriented x3 Resp Effort & Inspection: normal respiratory effort Auscultation: clear to auscultation bilaterally Cardio Rate: regular rate Rhythm: regular rhythm Heart sounds: S1 normal heart sound present and S2 normal heart sound present Neuro General: patient oriented x3 Psych Appearance: grossly normal Mental Status: mental status grossly normal Speech and movement: Normal speech and movement present Affect: normal affect Attitude: cooperative Thought process: Normal thought process present Thought content: Normal thought content present Insight: Good insight present (Psych) Judgement: Good judgement present (Psych) Assessment and Plan Assessment & Plan (1) Short-term memory loss: Code(s): R41.3 - Other amnesia Plan: Repeat MRI ordered, namenda increased (2) Mild cognitive impairment: Code(s): G31.84 - Mild cognitive impairment of uncertain or unknown etiology Plan: Repeat MRI ordered, namenda increased (3) Dyslipidemia: Code(s): E78.5 - Hyperlipidemia, unspecified (4) HTN (hypertension): Code(s): I10 - Essential (primary) hypertension Plan: cont meds/labs Plan The patient agreed to the use of a ophthalmic medical assistant for this encounter. Scribed for DANN Vasquez by Janice Cifuentes ophthalmic medical assistant, on 05/16/2023 at 15:25 EST. Orders: Orders MR head/brain wo con Today G31.84 - Mild cognitive impairment of uncertain or unknown etiology, R41.3 - Other amnesia Comprehensive [place]. Panel Fast Today E78.5 - Hyperlipidemia, unspecified, G31.84 - Mild cognitive impairment of uncertain or unknown etiology, I10 - Essential (primary) hypertension, R41.3 - Other amnesia TSH reflex Free T4 Today E78.5 - Hyperlipidemia, unspecified, G31.84 - Mild cognitive impairment of uncertain or unknown etiology, I10 - Essential (primary) hypertension, R41.3 - Other amnesia Lipid Panel Today E78.5 - Hyperlipidemia, unspecified, G31.84 - Mild cognitive impairment of uncertain or unknown etiology, I10 - Essential (primary) hypertension, R41.3 - Other amnesia Complete Blood Count Auto Diff Today E78.5 - Hyperlipidemia, unspecified, G31.84 - Mild cognitive impairment of uncertain or unknown etiology, I10 - Essential ( primary) hypertension, R41.3 - Other amnesia UA CC w/rflx Micro + Cult Today E78.5 - Hyperlipidemia, unspecified, G31.84 - Mild cognitive impairment of uncertain or unknown etiology, I10 - Essential (primary) hypertension, R41.3 - Other amnesia Medications: Changed From memantine (Namenda) first 7 days once a day, then BID thereafter 5 mg PO BID 30 days 60 tabs 3RF To memantine 10 mg PO BID 30 days 60 tabs 3RF Coding Level of Care Code Est Pt Level 3 (29526) Diagnoses Short-term memory loss R41.3 Mild cognitive impairment G31.84 Dyslipidemia E78.5 HTN (hypertension) I10
[2023-05-16 15:14] VITALS: BP 142/82; PULSE 74; O2SAT 96; BMI 32.5
== END 2023-05-16 16:25 | disposition home or self-care (01) ==
PROVIDERS: PCP Nurse Practitioner Family; Visit Provider Nurse Practitioner Family
DX: G31.84 Mild cognitive impairment of uncertain or unknown etiology (principal); E78.5 Hyperlipidemia, unspecified; I10 Essential (primary) hypertension
CPT/HCPCS: 99213

== ENCOUNTER 2023-06-06 08:47 | Outpatient (REF) | payer MEDICARE, SELFPAY ==
--- NOTE | ~2023-06-06 | CT_ITS ---
EXAMINATION: CT CHEST WITHOUT CONTRAST CLINICAL INFORMATION: Solitary pulmonary nodule COMPARISON: CT urogram from 02/04/2023 TECHNIQUE: Multidetector volumetric CT imaging of the chest was done. Axial MIP volume rendering provided. Sagittal and coronal reformatted images were obtained. This CT examination was performed using dose optimization techniques as appropriate, variously including the following: *Automated exposure control *Adjustment of mA and/or kV according to patient size (this includes techniques or standardized protocols for targeted exams where dose is matched to indication/reason for exam; i.e. extremities or head) *Use of iterative reconstruction technique DLP: 225 mGy-cm FINDINGS: LUNGS/PLEURA: Emphysematous changes. Respiratory motion artifact slightly limits evaluation. 3 mm subpleural nodule pleural tethering along the anterior aspect of the right upper lobe (series 4, image 247). 1 mm nodule along the lateral aspect of the right minor fissure (series 5, image 299). Atelectatic changes right middle lobe redemonstration of 4 mm nodule in the posterior lateral aspect of the left lower lobe, stable (series 5, image 439). Central airways are patent. No pneumothorax. No large pleural effusion. MEDIASTINUM: Heart is not enlarged. No pericardial effusion. Coronary artery calcifications are noted. Subcentimeter mediastinal lymph nodes are noted, not enlarged per size criteria. Aorta is nonaneurysmal and demonstrates a sclerotic calcifications. Main pulmonary artery is not enlarged. Visualized portions of the thyroid are unremarkable. AXILLA: No lymphadenopathy. UPPER ABDOMEN: Hypodense focus along the left hepatic lobe demonstrating fluid attenuation statistically representing a cyst measuring up to 1.6 cm. Moderate hiatal hernia. Mild fatty atrophy of the pancreas. OSSEOUS STRUCTURES: Multilevel degenerative changes of the thoracolumbar spine. CT/CT chest wo IV con IMPRESSION: 1. Multiple bilateral pulmonary nodules are noted the largest measuring up to 4 mm. Follow-up as per Fleischner criteria. 2. Hypodense focus along the left hepatic lobe demonstrating fluid attenuation statistically representing a cyst measuring up to 1.6 cm. 3. Moderate hiatal hernia. Various management parameters for solitary pulmonary nodules are in the literature. According to the Fleischner Society, recommendations for pulmonary nodules are as follows: According to the UPDATED 2017 Fleischner Society recommendations, the advised follow-up imaging for solid nodules < 6 mm is: HIGH RISK PATIENT: Optional CT at 12 months.
== END 2023-06-06 08:48 | disposition home or self-care (01) ==
LOC: HO.CT 08:47
PROVIDERS: PCP Nurse Practitioner Family; Visit Provider Hospitalist
DX: R91.1 Solitary pulmonary nodule (principal)
CPT/HCPCS: 71250

== ENCOUNTER 2023-06-08 10:41 | Outpatient (REF) | payer MEDICARE, SELFPAY ==
[2023-06-08 13:17] LABS: MANUAL DIFF FLAG NO
[2023-06-08 13:21] LABS: Basophils Percent Auto 0.3 % (0-2); Eosinophils Absolute Auto 0.3 X10*3/uL (0.0-0.4); Hematocrit 42.6 % (42.0-52.0); Hemoglobin 14.3 g/dl (14.0-18.0); Imm Gran Abs Auto 0.02 X10*3/uL (0.00-0.03); Imm Gran Pct Auto 0.2 % (0.0-0.4); Lymphocytes Absolute Auto 1.7 X10*3/uL (1.2-4.9); Lymphocytes Percent Auto 18.9 % (20-40); Mean Corpuscular HGB Conc 33.6 g/dl (31.0-36.0); Mean Corpuscular Hemoglobin 31.9 pg (27.0-33.0); Mean Corpuscular Volume 95.1 fL (80.0-98.0); Mean Platelet Volume 9.8 fL (9.4-12.4); Monocytes Absolute Auto 0.7 X10*3/uL (0.1-1.2); Monocytes Percent Auto 7.5 % (2-11); Neutrophils Absolute Auto 6.4 x10*3/uL (2.0-8.3); Neutrophils Percent Auto 70.1 % (45-73); Platelet Count 302 X10*3/uL (160-400); Red Blood Count 4.48 X10*6/uL (4.60-5.80); Red Cell Distribution Width 12.2 % (11.0-16.0); White Blood Count 9.1 X10*3/uL (4.8-10.8)
[2023-06-08 13:41] LABS: Alanine Aminotransferase 21 U/L (0-40); Albumin Level 4.5 g/dL (3.5-5.0); Alkaline Phosphatase 84 U/L (39-117); Anion Gap 11 (12-20); Aspartate Amino Transferase 21 U/L (5-37); Bilirubin Total 0.6 mg/dL (0.0-1.0); Blood Urea Nitrogen 12 mg/dL (9-16); Calcium 9.6 mg/dL (8.4-10.2); Carbon Dioxide 29 mmol/L (22-29); Chloride 100 mmol/L (96-108); Cholesterol 156 mg/dL (<200); Estimated Glomerular Filt Rate > 60; Glucose Fasting 96 mg/dL (60-99); HDL Cholesterol 44 mg/dL (>40); LDL Cholesterol Calculated 87 mg/dL (<100); Potassium 4.4 mmol/L (3.3-5.1); Sodium 136 mmol/L (135-145); Total Protein 7.3 g/dL (6.5-8.0); Triglycerides 129 mg/dL (<150)
[2023-06-08 13:55] LABS: Prostate Specific Antigen 2.37 ng/mL (<0.05-4.0)
[2023-06-08 13:59] LABS: Appearance Urine Clear; Color Urine Yellow; Glucose Urine UA Negative (Negative); Leukocyte Esterase Urine Negative (Negative); Nitrite Urine Negative (Negative); PH 7.5 (5.0-9.0); TSH reflex Free T4 1.35 uIU/mL (0.32-4.0); UMIC TRIGGER UACC YES; Urine Blood Trace (Negative); Urine Ketones Negative (Negative); Urine Protein Negative (Neg-Trace)
[2023-06-08 14:04] LABS: Bacteria Urine None Seen (None Seen); Hyaline Casts Urine 0-2 /LPF (0-2); Squamous Epithelial Cell Urine 0-2 /HPF (0-2); WBC Urine 0-5 /HPF (0-5)
== END 2023-06-08 10:42 | disposition home or self-care (01) ==
LOC: HO.HMGCLDS 10:41
PROVIDERS: Urology; PCP Nurse Practitioner Family; Visit Provider Nurse Practitioner Family
DX: Z12.5 Encounter for screening for malignant neoplasm of prostate (principal); R97.20 Elevated prostate specific antigen [PSA]; G31.84 Mild cognitive impairment of uncertain or unknown etiology; E78.5 Hyperlipidemia, unspecified; I10 Essential (primary) hypertension
CPT/HCPCS: 36415; 80053; 80061; 81001; 84153; 84443; 85025

== ENCOUNTER 2023-06-13 14:08 | Outpatient (AMB) | payer MEDICARE, SELFPAY ==
--- NOTE | 2023-06-13 14:25 | MHC.OFFVIS ---
Intake Vital Signs 06/13/23 14:26 Height 5 ft 8 in Weight 213 lb 13.574 oz BMI 32.5 Pulse 83 Pulse Source Pulse Oximeter Pulse Oximetry (%) 98 Oxygen Delivery Method Room Air Intake Visit Reasons: pulm nodules Eligibility Supervisor Required: No Allergies No Known Allergies Allergy (Verified 06/13/23 14:28) HPI HPI Comments History of Present Illness Details The patient is a 78-year-old gentleman who has no underlying respiratory issues and had a abnormal finding on an iimaging studies. Apparently the patient underwent a CT scan of the abdomen pelvis and was noted to have a small pulmonary nodule measuring 4 mm in size and is lower lung zones. The patient has not had any formal imaging studies of the chest however. Therefore is difficult to further address the pulmonary nodule in view of not being able to evaluate the whole lung parenchyma. The patient did also have a CT scan of the spine the cervical spine sometime in the spring that actually also demonstrated hypodensity, also measuring 4 mm on the parotid gland. This is something that may be have to be further evaluated as well. The patient currently is doing well from a respiratory status therefore we will hold off on any imaging studies. Will plan to do a formal CT scan of the chest to better address the pulmonary finding however. Once he does get the formal CT scan of the chest will review all the images together and make sure that this process is not progressing. 06/13/2023 the patient is here for a pulmonary follow-up visit. Overall the patient has been doing well. He denies any respiratory complaints. He did undergo a formal CT scan of the chest which we personally reviewed. Has not been officially been read yet. The patient has multiple pulmonary nodules in the largest nodule measuring 5-6 mm in size in the right hemithorax. In addition to that has numerous other nodules. More significant is the degree of atelectasis that he has in the right middle lobe area. Moderate severity. We did talk about ways to try to expand that right middle lobe. he is going to be provide an Acapella valve for CPT and also work on deep breathing exercises. Will plan to repeat the CT scan in 6 months to assess the degree of atelectasis. If the patient has atelectasis worsens or if he becomes symptomatic then an airway survey with bronchoscopy will be warranted. Otherwise regarding the pulmonary nodules that do not appear to be concerning in appearance. However, will require a 2 year follow-up altogether. In addition, the patient did have a cervical CT scan that we had discussed before that appeared to have a 4 mm hypodensity nodular density in the parotid gland. He will be following up with his primary care doctor soon so therefore they can discuss further evaluation for that during that visit. [facility] Medical History (Updated 06/13/23 @ 20:32 by Woody Bustillos MD) Pulmonary nodules Atelectasis Mild cognitive impairment Nodule of parotid gland Alzheimer disease Short-term memory loss Testicular hypofunction Lipoma Vitamin D deficiency Insomnia Osteoarthritis Impotence Asthma GERD (gastroesophageal reflux disease) Sleep apnea Housing: Apartment Patient Tobacco Use Status: Never used Tobacco Second Hand Smoke Exposure: No service: Yes Current occupational status: retired Cognitive needs: No Hearing needs: No Vision needs: No Review of Systems Const Denies chills and Denies fever(s) ENT Reports no additional complaints Card Reports no additional complaints and Denies syncope Resp Denies cough and Denies wheezing GI Denies abdominal pain and Denies heartburn Skin/Breast Denies rash Neuro Denies syncope Carlos/Lymph Denies lymphadenopathy Aller/Immun Denies wheezing Physical Exam Vital Signs: Last Vital Signs Pulse 83 06/13/23 14:26 Pulse Ox 98 06/13/23 14:26 Oxygen Delivery Method Room Air 06/13/23 14:26 BMI result Body Mass Index 32.5 Const General: comfortable HEENT Head: Yes normocephalic Eyes General: appearance normal, both eyes and all related structures Neck Neck: Yes supple Chest Chest palpation & inspection: normal inspection of the chest Resp Effort & Inspection: normal respiratory effort and prolonged expiratory phase Cardio Rate: regular rate Rhythm: regular rhythm Heart sounds: S1 normal heart sound present and S2 normal heart sound present GI Palpation (GI): Soft to palpation Skin General skin exam: no rashes or lesions noted Extrem General: Yes no clubbing, cyanosis or edema Assessment & Plan Assessment & Plan (1) Atelectasis: Code(s): J98.11 - Atelectasis (2) Pulmonary nodules: Code(s): R91.8 - Other nonspecific abnormal finding of lung field (3) Nodule of parotid gland: Comment: There is a 4 mm hypodensity in the left parotid gland. Code(s): K11.8 - Other diseases of salivary glands Plan CPT with acapella valve and deep breathing exercises f/u with PCP regarding the parotid hypodensity repeat CT chest in 6 months F/U 6 months Orders: Orders CT chest wo IV con Today J98.11 - Atelectasis, R91.8 - Other nonspecific abnormal finding of lung field Coding Level of Care Code Est Pt Level 4 (58972) Diagnoses Atelectasis J98.11 Pulmonary nodules R91.8 Nodule of parotid gland K11.8 Time Spent (min) 17
[2023-06-13 14:26] VITALS: PULSE 83; O2SAT 98; BMI 32.5
== END 2023-06-13 15:04 | disposition home or self-care (01) ==
PROVIDERS: PCP Nurse Practitioner Family; Visit Provider Hospitalist
DX: J98.11 Atelectasis (principal); R91.8 Other nonspecific abnormal finding of lung field; K11.8 Other diseases of salivary glands
CPT/HCPCS: 99214

== ENCOUNTER → 2023-06-13 14:08 | Outpatient (BNVA) | payer MEDICARE, SELFPAY | PROVIDERS: PCP Nurse Practitioner Family; Visit Provider Hospitalist | DX: J98.11 Atelectasis (principal); R91.8 Other nonspecific abnormal finding of lung field; K11.8 Other diseases of salivary glands | CPT/HCPCS: 99212 ==

== ENCOUNTER 2023-06-22 11:35 | Outpatient (AMB) | payer MEDICARE, SELFPAY ==
--- NOTE | 2023-06-22 11:44 | MHC.OFFVIS ---
Intake Intake Visit Reasons: 4m/labs Intake Note: Patient is present for follow up Elevated PSA (psa 2.37) Urology Medications: finasteride Antibiotic Allergy: None Blood Thinner: None Flat Polisher Required: No Accompanied by: Daughter Allergies No Known Allergies Allergy (Verified 06/22/23 12:20) Medication List - Last Reconciled 06/22/23 by Dianne Harvey NUCLEAR FUELS RESEARCH ENGINEER- albuterol sulfate 90 mcg/actuation 2 puffs inhalation Q6-8H PRN cholecalciferol (vitamin D3) 50 mcg PO DAILY finasteride 5 mg PO DAILY 90 days fluticasone propion-salmeterol 250-50 mcg/dose (Wixela Inhub) 1 ea inhalation BID PRN losartan-hydrochlorothiazide 50-12.5 mg 1 tab PO DAILY memantine 10 mg PO BID 30 days omeprazole 20 mg PO BID PRN rosuvastatin 10 mg PO DAILY HPI HPI Comments History of Present Illness Details Oswaldo is a pleasant 78-year-old male patient of Dr. Kirkland who was accompanied by his daughter Lynette at today's visit. He has a past medical history of Alzheimer's disease, asthma, GERD, insomnia, osteoarthritis, sleep apnea, and vitamin-D deficiency. He presents to the office today for follow-up of hematuria as well as elevated PSA. When asked patient reports to be doing and feeling well. Of note, during last office visit patient underwent in office cystoscopy for further assessment evaluation with Dr. Vela for gross hematuria at which time no suspicious bladder tumors or abnormalities noted. Cytology negative for high-grade urethral carcinoma. Patient was started on finasteride 5 mg with recommendations of 4 month follow-up with PSA to be completed prior. He reports compliance with 5 mg of finasteride daily. Recent PSA results reviewed with the patient and his daughter today as noted below. He otherwise denies any bothersome urinary issues or concerns at this time. He denies urinary urgency, urinary frequency, incontinence, nocturia, dysuria, foul smelling urine, changes to urinary stream, flank pain, fever, and or chills. Previous workup has included a retroperitoneal ultrasound noting right kidney with no calculi, or hydronephrosis noted. There is an anechoic cyst in the mid pole measuring 1.4 x 1.7 x 1.4 cm. Left kidney with no lesions, calculi, or hydronephrosis noted. The bladder is well distended and normal. Bilateral ureteral jets are demonstrated. Prevoid bladder volume is 240 mL. Postvoid bladder volume is 41.4 mL. The prostate is enlarged. It measures approxitamtely [address] urogram was also performed previously noting no stones and or hydronephrosis, mild prostate enlargement, and 4 mm nodule at the left lung base. Patient was referred to pulmonology and is currently following up with Dr. Bustillos. He otherwise denies any urinary issues or concerns at this time. He is happy with his current voiding parameters. In office urinalysis results reviewed with the patient today. 01/07 6.9 12% 06/09--2.4 [facility] Medical History Pulmonary nodules Atelectasis Mild cognitive impairment Nodule of parotid gland Alzheimer disease Short-term memory loss Testicular hypofunction Lipoma Vitamin D deficiency Insomnia Osteoarthritis Impotence Asthma GERD (gastroesophageal reflux disease) Sleep apnea Social History Housing: Apartment Patient Tobacco Use Status: Never used Tobacco Second Hand Smoke Exposure: No service: Yes Current occupational status: retired Cognitive needs: No Hearing needs: No Vision needs: No Review of Systems Const Reports as per [facility] Eyes Reports no additional complaints ENT Reports no additional complaints Card Reports no additional complaints Resp Reports as per HPI GI Reports as per HPI Reports as per HPI Neuro Reports as per HPI Psych Reports as per HPI Endo Reports no additional complaints Physical Exam Const General: cooperative, healthy appearing, comfortable, no acute distress, well developed, alert and awake Orientation/consciousness: oriented to person Limitations: no limitations HEENT Head: Yes normal to inspection, Yes normocephalic and Yes atraumatic Ears: hearing grossly normal bilaterally Eyes General: appearance normal, both eyes and all related structures Neck Neck: Yes normal visual inspection and Yes trachea midline Chest Chest palpation & inspection: normal inspection of the chest Resp Effort & Inspection: normal respiratory effort and able to speak in complete sentences Cardio Rate: regular rate GI Inspection: Yes normal to inspection General: Yes no CVA tenderness Back/Spine/Pelvis Back: no CVA tenderness Skin General skin exam: no rashes or lesions noted Neuro General: oriented to person Extrem General: Yes normal to inspection Psych Appearance: grossly normal and well kempt Mental Status: mental status grossly normal Speech and movement: Normal speech and movement present and Clear speech present Affect: normal affect Attitude: cooperative Thought process: Normal thought process present Thought content: Normal thought content present Insight: Limited insight present (Psych) Judgement: Limited judgement present (Psych) Results AMB Urinalysis, Automated UA Leukoctes 0 Lata/uL Last Edit by [employer] on 06/22/23 12:10 UA Nitrite Negative Last Edit by [employer] on 06/22/23 12:10 UA Urobilinogen 0.2 mg/dL Last Edit by [employer] on 06/22/23 12:10 UA Protein 0 mg/dL Last Edit by [employer] on 06/22/23 12:10 UA pH 6.5 Last Edit by [employer] on 06/22/23 12:10 UA Blood 25 Brenton/uL Last Edit by [employer] on 06/22/23 12:10 UA Specific [place] 1.015 Last Edit by [employer] on 06/22/23 12:10 UA Ketone Negative Last Edit by [employer] on 06/22/23 12:10 UA Bilirubin 0 mg/dL Last Edit by [employer] on 06/22/23 12:10 UA Glucose 0 mg/dL Last Edit by [employer] on 06/22/23 12:10 Results Reviewed Results Reviewed: Laboratory Last Values Urine pH (Auto) 6.5 06/22/23 11:58 Specific [place] (Auto) 1.015 06/22/23 11:58 Urine Protein (Auto) 0 mg/dL 06/22/23 11:58 Glucose (UA)(Auto) 0 mg/dL 06/22/23 11:58 Urine Ketones (Auto) Negative 06/22/23 11:58 Urine Blood (Auto) 25 Brenton/uL 06/22/23 11:58 Urine Nitrite (Auto) Negative 06/22/23 11:58 Urine Bilirubin (Auto) 0 mg/dL 06/22/23 11:58 Urine Urobilinogen (Auto) 0.2 mg/dL 06/22/23 11:58 Leukocyte Esterase (Auto) 0 Lata/uL 06/22/23 11:58 Assessment & Plan Assessment & Plan (1) Elevated PSA: Code(s): R97.20 - Elevated prostate specific antigen [PSA] (2) Microscopic hematuria: Code(s): R31.29 - Other microscopic hematuria Plan In office urinalysis results reviewed with the patient today; as noted above. PSA trending down as noted above Continue finasteride as discussed and prescribed. Patient denies any bothersome urinary issues or concerns at this time. Patient reports be happy with current voiding parameters. Will obtain PSA in 4 months. Follow-up in 4 months with lab to be completed prior; or sooner with any issues, concerns, and or questions. Orders: Orders AMB Urinalysis Automated Today Z13.9 - Encounter for screening, unspecified Prostate Specific Antigen 4 Months R97.20 - Elevated prostate specific antigen [PSA] Patient Instructions: The patient had an opportunity to ask questions regarding the treatment plan. All questions were answered. Physical exam, labs, and imaging were discussed and reviewed in detail. As well as risks, benefits, and discussion of treatment choices. No major barriers to understanding were identified. The patient expressed understanding and agreement with the above treatment plan. The patient was made aware they should contact our office by phone for worsening of their current condition, the appearance of new symptoms, or with any questions or concerns. Compliance is encouraged with any medications and follow up testing that is ordered. It is a privilege to be allowed the opportunity to participate in? your urological care.? Again, if you have any questions or concerns If you have any questions or concerns please do not hesitate to contact me. The office is [phone]. This note is constructed using voice recognition software. While every effort has been made to ensure accuracy deli bakery clerk errors may have been included. Yours sincerely, DANN Means Coding Level of Care Code Est Pt Level 3 (64371) Diagnoses Elevated PSA R97.20 Microscopic hematuria R31.29
== END 2023-06-22 12:18 | disposition home or self-care (01) ==
PROVIDERS: PCP Nurse Practitioner Family; Visit Provider Nurse Practitioner Family
DX: R97.20 Elevated prostate specific antigen [PSA] (principal); R31.29 Other microscopic hematuria; Z13.9 Encounter for screening, unspecified
CPT/HCPCS: 99213

== ENCOUNTER 2023-06-22 11:35 | Outpatient (REF) | payer MEDICARE, SELFPAY ==
[2023-06-22 16:43] LABS: Urine Cytology See Pathology rpt
== END 2023-06-22 11:36 | disposition home or self-care (01) ==
LOC: HO.LNP 11:35
PROVIDERS: PCP Nurse Practitioner Family; Visit Provider Nurse Practitioner Family
DX: R31.0 Gross hematuria (principal); R97.20 Elevated prostate specific antigen [PSA]; R31.29 Other microscopic hematuria; Z79.899 Other long term (current) drug therapy
CPT/HCPCS: 81003; 88112; 99212

== ENCOUNTER 2023-06-23 08:35 | Outpatient (REF) | payer MEDICARE, SELFPAY ==
--- NOTE | ~2023-06-23 | MR_ITS ---
EXAMINATION: MR BRAIN WITHOUT CONTRAST CLINICAL INFORMATION: Mild cognitive impairment COMPARISON: CT head 12/11/2022 TECHNIQUE: MRI of the brain was obtained using routine sequences without contrast. FINDINGS: No acute infarct. No acute intracranial hemorrhage or extra-axial fluid collection. There is ventriculomegaly which appears somewhat disproportionate to sulcal prominence with crowded sulci near the vertex that can be correlated for communicating hydrocephalus superimposed upon global cerebral volume loss. Patchy T2 FLAIR hyperintense foci in the subcortical and periventricular white matter, nonspecific but presumably minimal chronic microangiopathy. No mass lesion, mass effect, or herniation pattern. Normal intracranial arterial and dural venous sinus flow voids. 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 Normal appearance of the midline structures. The orbits are grossly unremarkable. Trace paranasal sinus mucosal thickening. Proteinaceous contents opacifying the left frontoethmoidal region. Small proteinaceous retention cyst in anterior right ethmoid air cell. Right maxillary sinus alveolar recess retention cyst. No mastoid effusion. Normal marrow signal. MR/MR head/brain wo con IMPRESSION: 1. 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 2. 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
== END 2023-06-23 08:36 | disposition home or self-care (01) ==
LOC: HO.MRI 08:35
PROVIDERS: PCP Nurse Practitioner Family; Visit Provider Nurse Practitioner Family
DX: G31.84 Mild cognitive impairment of uncertain or unknown etiology (principal)
CPT/HCPCS: 70551

== ENCOUNTER → 2023-09-13 13:26 | Outpatient (BNVA) | payer MEDICARE, SELFPAY | PROVIDERS: PCP Nurse Practitioner Family; Visit Provider Nurse Practitioner Family | DX: G31.84 Mild cognitive impairment of uncertain or unknown etiology (principal); G47.30 Sleep apnea, unspecified; R41.3 Other amnesia | CPT/HCPCS: 99202 ==

== ENCOUNTER 2023-09-13 13:28 | Outpatient (AMB) | payer MEDICARE, SELFPAY ==
--- NOTE | 2023-09-13 13:35 | A.OFFVIS_ITS ---
Intake Vital Signs 09/13/23 13:44 Height 5 ft 7 in Weight 220 lb 2 oz BMI 34.5 BP 130/70 Blood Pressure Location Rt brachial Position Sitting Pulse 85 Pulse Source Pulse Oximeter Pulse Oximetry (%) 97 Oxygen Delivery Method Room Air Intake Visit Reasons: ENP-Mild Cognitive impairment-CONF Intake Note: Patient presents for mild cognitive impairment. Allergies No Known Allergies Allergy (Verified 09/13/23 13:40) HPI HPI Comments History of Present Illness Details 78 y/o male patient presents for new in- person visit for evaluation of cognitive impairment. Pt is accompanied by his and daughters. Pt's daughter reports that patient moved from [place] about an year ago. Pt lived with his in [place] and his daughters don't know he saw his primary care doctor regularly or compliant his medications. His two daughters noticed that the patient's memory issue when he came from [place]. He forgets things easily, and keep repeating the same conversations, and ask same questions a few min later. He forgets to pay bills, and now his daughter takes care of bills and finances. He also does not remember to take his medications, so his gives him me dication daily. He is independent ADLs and drives local. Brain MRI result reviewed. 1. Ventriculomegaly which appears somew hat disproportionate to sulcal prominence with crowded sulci near the vertex can be correlated for communicating hydrocephalus superimposed upon global cerebral volume loss. 2. 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 Denies urinary incontinence, difficulty walking or falls. Pt tried memantine 10 mg BID. It caused extreme dizziness, and he stopped memantine and dizziness has resolved. Pt also has hx of sleep apnea. He tried CPAP for a while, but he did not like it and could not sleep well with it. He returned CPAP. Pt's reports he gets tired easily, sleeps a lot during daytime. He takes a nap 4-5 hrs a day. [facility] Medical History (Updated 09/15/23 @ 08:50 by Keaton Amaya CNP) Pulmonary nodules Atelectasis Mild cognitive impairment Nodule of parotid gland Alzheimer disease Short-term memory loss Testicular hypofunction Lipoma Vitamin D deficiency Insomnia Osteoarthritis Impotence Asthma GERD (gastroesophageal reflux disease) Sleep apnea Family History (Updated 09/13/23 @ 13:42 by Kerri Cantor ANGELLA) Father Stroke Social History Housing: Apartment Patient Tobacco Use Status: Never used Tobacco Second Hand Smoke Exposure: No service: Yes Current occupational status: retired Cognitive needs: No Hearing needs: No Vision needs: No Review of Systems Const All systems reviewed & are unremarkable except as noted in HPI and below Physical Exam Vital Signs: Last Vital Signs Pulse 85 09/13/23 13:44 BP 130/70 09/13/23 13:44 Pulse Ox 97 09/13/23 13:44 Oxygen Delivery Method Room Air 09/13/23 13:44 BMI result Body Mass Index 34.5 Const General: cooperative Nutritional Appearance: obese Orientation/consciousness: oriented to person and oriented to place Neck Neck: Yes full ROM and Yes supple Resp Effort & Inspection: normal respiratory effort and able to speak in complete sentences Neuro General: oriented to person, oriented to place, gait normal and moves all extremities Cranial nerves: Yes CN's II-XII intact bilaterally Cognition (Neuro): normal cognition Gait exam (Neuro): Normal gait present Motor exam (neuro): 5/5 motor strength present throughout, Pronator motor function not present and no tremor noted Coordination: [id number] test normal Orientation What is the (year) (season) (date) (day) (month)?: day and month Where are we (state) (county) (town or city) (hospital) (floor)?: state, county, town or city, hospital/clinic and floor Registration Name of 3 unrelated objects clearly and slowly, then ask patient to repeat all 3 of them. (1st repeat determines score. Make sure they can repeat all three): object 1 and object 2 Attention & Calculation (CHOOSE ONE) Spell WORLD backwards (DLROW): 2 letters Recall Ask patient to repeat the 3 items from question #3.: object 1 Language Show patient a wristwatch & ask what it is. Repeat for pencil.: watch and pencil Ask the patient to repeat the phrase 'No ifs, ands, or buts' after you.: correct Ask the patient to 'take a piece of paper with their right hand' 'fold paper in half' 'place paper on floor': take paper in right hand, fold paper in half and place paper on floor Print the sentence 'CLOSE YOUR EYES' on a piece. If patient actually closes eyes then score.: followed written direction Give patient a blank piece of paper & ask to write a sentence. Score if it c ontains a noun & verb.: sentence contains subject and verb Score Score: 20 Assessment & Plan Assessment & Plan (1) Mild cognitive impairment: Code(s): G31.84 - Mild cognitive impairment of uncertain or unknown etiology (2) Short-term memory loss: Code(s): R41.3 - Other amnesia (3) Sleep apnea: Code(s): G47.30 - Sleep apnea, unspecified Plan MMSE 20/30 and he did not good at drawing clock. Advised patient to undergo in lab sleep study to assess sleep apnea. Pt wants to try sleep study and CPAP before start medications, he did not tolerate memantine. Labs ordered. Advised patient to increase daily physical, cognitive and social activities. Refer patient to neuropsychology evaluation. Orders: Orders Vitamin B12 and Folate 09/13/23 G31.84 - Mild cognitive impairment of uncertain or unknown etiology, R41.3 - Other amnesia Vitamin D 25-OH (D2 and D3) 09/13/23 G31.84 - Mild cognitive impairment of uncertain or unknown etiology, R41.3 - Other amnesia RT PSG in-lab sleep study Today E66.9 - Obesity, unspecified, G31.84 - Mild cognitive impairment of uncertain or unknown etiology, G47.19 - Other hypersomnia, G47.30 - Sleep apnea, unspecified, I10 - Essential (primary) hypertension RPR Monitor reflex titer Today G31.84 - Mild cognitive impairment of uncertain or unknown etiology, R41.3 - Other amnesia Homocysteine Today G31.84 - Mild cognitive impairment of uncertain or unknown etiology, R41.3 - Other amnesia Referrals Neuropsychiatry Referral G31.84 - Mild cognitive impairment of uncertain or unknown etiology, R41.3 - Other amnesia Coding Level of Care Code New Pt Level 4 (55530) Diagnoses Mild cognitive impairment G31.84 Short-term memory loss R41.3 Sleep apnea G47.30
[2023-09-13 13:44] VITALS: BP 130/70; PULSE 85; O2SAT 97; BMI 34.5
== END 2023-09-13 14:47 | disposition home or self-care (01) ==
PROVIDERS: PCP Nurse Practitioner Family; Visit Provider Nurse Practitioner Family
DX: G31.84 Mild cognitive impairment of uncertain or unknown etiology (principal); G47.30 Sleep apnea, unspecified
CPT/HCPCS: 99204

== ENCOUNTER 2023-10-12 09:46 | Outpatient (AMB) | payer MEDICARE, SELFPAY ==
--- NOTE | 2023-10-12 09:59 | MHC.PC.OV ---
Vital Signs 10/12/23 10:00 Height 5 ft 7 in Weight 218 lb BMI 34.1 BP 130/80 Blood Pressure Location Lt brachial Position Sitting Pulse 83 Pulse Source Pulse Oximeter Pulse Oximetry (%) 98 Oxygen Delivery Method Room Air Intake Visit Reasons: follow up Intake Note: pt is here for follow up, has a scheduled sleep study next week Cover Cutter Machine Required: No Accompanied by: Self / Same As Patient Allergies No Known Allergies Allergy (Verified 10/12/23 10:04) Medication List - Last Reconciled 10/12/23 by DANN Hernandez albuterol sulfate 90 mcg/actuation 2 puffs inhalation Q6-8H PRN cholecalciferol (vitamin D3) 50 mcg PO DAILY famotidine 20 mg PO BEDTIME finasteride 5 mg PO DAILY 90 days fluticasone propion-salmeterol 250-50 mcg/dose (Wixela Inhub) 1 ea inhalation BID PRN losartan-hydrochlorothiazide 50-12.5 mg 1 tab PO DAILY omeprazole 40 mg PO DAILY 30 days rosuvastatin 10 mg PO DAILY Tobacco use date assessed: 10/12/23 Fall risk assessment: No Falls in past year Last assessed Fall Risk: 10/12/23 Dental Screening Dental Screen Date: 10/12/23 Did you have a dental visit in the last 12 months?: Yes Did you have a dental problem in the last 6 months where you did not have access to dental care?: No Was dental information given to patient?: Patient has dentist HPI follow up HPI Details Dyslipidemia: On rosuvastatin 10mg. Will order labs. Denies chest pain, shortness of breath, and dizziness. Pt reports a skin lesion to his right tricep region. Will refer to derm. Pt has a hx of a 4mm hypodensity in the left parotid gland. Will order US. Denies any salivary issues or tenderness. [facility] Medical History (Updated 10/12/23 @ 10:14 by DANN Hernandez) Pulmonary nodules Atelectasis Mild cognitive impairment Nodule of parotid gland Alzheimer disease Short-term memory loss Testicular hypofunction Lipoma Vitamin D deficiency Insomnia Osteoarthritis Impotence Asthma GERD (gastroesophageal reflux disease) Sleep apnea Surgical History No pertinent past surgical history Family History Father Stroke Social History Housing: Apartment Patient Tobacco Use Status: Never used Tobacco Second Hand Smoke Exposure: No service: Yes Current occupational status: retired Cognitive needs: No Hearing needs: No Vision needs: No Questionnaire PHQ-9 Over the last 2 weeks, how often have you been bothered by any of the following problems? 1. Little interest or pleasure in doing things: not at all 2. Feeling down, depressed, or hopeless: not at all 3. Trouble falling or staying asleep, or sleeping too much: not at all 4. Feeling tired or having little energy: not at all 5. Poor appetite or overeating: not at all 6. Feeling bad about yourself - or that you are a failure or have let yourself or your family down: not at all 7. Trouble concentrating on things, such as reading the newspaper or watching television: not at all 8. Moving or speaking so slowly that other people could have noticed. Or the opposite - being so fidgety or restless that you have been moving around a lot more than usual: not at all 9. Thoughts that you would be better off or of hurting yourself in some way: not at all Total score: 0 Depression Screening Interpretation: Negative Depression Screening Done: Yes 09708 - PHQ-9 Billing: Yes Source: Developed by Drs. Karthik Espinosa, Ginger Carpio, Augusto Arellano and colleagues, with an educational breanna from [employer]. Thrive Questionnaire Date Thrive assessed: 10/12/23 I am a: Patient What is your living situation today?: I have a steady place to live Within the past 12 months, did the food you bought not last and you didn't have the money to get more?: Never true Within the past 12 months, did you worry whether your food would run out before you got money to buy more?: Never true Do you have trouble paying for medicines?: No Do you have trouble getting transportation to medical appointments?: No Do you have trouble paying your heating and electricity bill?: No Do you have trouble taking care of your child, family member or friend?: No Do you have trouble with day-to-day activities such as bathing, preparing meals, shopping, managing finances, etc.?: No Are you currently unemployed and looking for a job?: No Are you interested in more education?: No Please select the resources that you would like help with: None Currently or been in a relationship where the following occur: no concerns reported THRIVE Score: 0 AUDIT C Alcohol Use Questionnaire (AUDIT-C) 1. How often do you have a drink containing alcohol?: Never 2. How many drinks containing alcohol do you have on a typical day when you are drinking?: 1 or 2 3. How often do you have six or more drinks on one occasion?: Never Total Score: 0 Score Reviewed/Action Taken: Yes TRINIDAD-7 AMB Questionnaire TRINIDAD-7 Date TRINIDAD - 7 assessed: 10/12/23 Feeling nervous, anxious, or on edge: 0 = Not at all Not being able to stop or control worryin = Not at all Worrying too much about different things: 0 = Not at all Trouble relaxin = Not at all Being so restless that it is hard to sit still: 0 = Not at all Becoming easily annoyed or irritable: 0 = Not at all Feeling afraid as if something awful might happen: 0 = Not at all Total TRINIDAD-7 score (0-4 normal; 5-9 mild; 10-14 moderate; 15-21 severe): 0 Source: Developed by Drs. Karthik Espinosa, Ginger Carpio, Augusto Arellano and colleagues, with an educational breanna from [employer]. TRINIDAD-7 Assessment Billing TRINIDAD-7 Assessment Tool: TRINIDAD-7 Assessment 74894 Review of Systems Const Reports as per HPI Physical exam (Primary Care) Vital Signs: Last Vital Signs Pulse 83 10/12/23 10:00 BP 130/80 10/12/23 10:00 Pulse Ox 98 10/12/23 10:00 Oxygen Delivery Method Room Air 10/12/23 10:00 BMI result Body Mass Index 34.1 Tobacco/Smoking Status: Tobacco use Status Tobacco use date assessed 10/12/23 10/12/23 10:08 Patient Tobacco Use Status Never used Tobacco 10/12/23 10:00 PHQ-9: PHQ-9 Score PHQ-9: Total score 0 10/12/23 10:12 Depression Screening Interpretation: Negative Thrive Assessment: Date of Thrive Assessment Date Thrive assessed 10/12/23 10/12/23 10:09 Currently or been in a relationship where the following occur: no concerns reported Const General: cooperative Nutritional Appearance: obese Orientation/consciousness: patient oriented x3 Neck Other: no tenderness with palpation of left parotid region Resp Effort & Inspection: normal respiratory effort Auscultation: clear to auscultation bilaterally Cardio Rate: regular rate Rhythm: regular rhythm Heart sounds: S1 normal heart sound present, S2 normal heart sound present and no murmurs Skin Other: right tricep region with small, circular, raised, crusty skin colored lesion Neuro General: patient oriented x3 Psych Appearance: grossly normal Speech and movement: Normal speech and movement present Affect: normal affect Attitude: cooperative Assessment and Plan Assessment & Plan (1) Skin lesion: Code(s): L98.9 - Disorder of the skin and subcutaneous tissue, unspecified Plan: Referred to derm (2) Nodule of parotid gland: Comment: There is a 4 mm hypodensity in the left parotid gland. Code(s): K11.8 - Other diseases of salivary glands Plan: US ordered (3) Dyslipidemia: Code(s): E78.5 - Hyperlipidemia, unspecified Plan: Labs ordered Plan The patient agreed to the use of a medical interpreter for this encounter. Scribed for [facility] by Janice Cifuentes medical interpreter, on 10/12/2023 at 10:15 EST. Orders: Orders US soft tiss head and/or neck Today K11.8 - Other diseases of salivary glands Complete Blood Count Auto Diff Today E78.5 - Hyperlipidemia, unspecified Comprehensive [place]. Panel Fast Today E78.5 - Hyperlipidemia, unspecified Lipid Panel Today E78.5 - Hyperlipidemia, unspecified TSH reflex Free T4 Today E78.5 - Hyperlipidemia, unspecified UA CC w/rflx Micro + Cult Today E78.5 - Hyperlipidemia, unspecified Referrals Dermatology Referral L98.9 - Disorder of the skin and subcutaneous tissue, unspecified Medications: New famotidine 20 mg PO BEDTIME 90 tabs 0RF cholecalciferol (vitamin D3) 50 mcg PO DAILY 90 caps 3RF Changed From omeprazole 20 mg PO BID PRN To omeprazole 40 mg PO DAILY 30 days 30 caps 2RF Coding Level of Care Code Est Pt Level 3 (74387) Diagnoses Skin lesion L98.9 Nodule of parotid gland K11.8 Dyslipidemia E78.5 Additional Codes TRINIDAD-7 Assessment Billing - TRINIDAD-7 Assessment Tool: TRINIDAD-7 Assessment [id number] ([id number])
[2023-10-12 10:00] VITALS: BP 130/80; PULSE 83; O2SAT 98; BMI 34.1
== END 2023-10-12 10:55 | disposition home or self-care (01) ==
PROVIDERS: PCP Nurse Practitioner Family; Visit Provider Nurse Practitioner Family
DX: L98.9 Disorder of the skin and subcutaneous tissue, unspecified (principal); K11.8 Other diseases of salivary glands; E78.5 Hyperlipidemia, unspecified
CPT/HCPCS: 99213

== ENCOUNTER 2023-10-17 06:43 | Outpatient (REF) | payer MEDICARE, SELFPAY ==
[2023-10-17 10:12] LABS: MANUAL DIFF FLAG NO
[2023-10-17 10:27] LABS: Basophils Percent Auto 0.4 % (0-2); Eosinophils Absolute Auto 0.3 X10*3/uL (0.0-0.4); Eosinophils Percent Auto 2.7 % (0-4); Hematocrit 40.7 % (42.0-52.0); Hemoglobin 13.7 g/dl (14.0-18.0); Imm Gran Abs Auto 0.04 X10*3/uL (0.00-0.03); Imm Gran Pct Auto 0.4 % (0.0-0.4); Lymphocytes Absolute Auto 2.3 X10*3/uL (1.2-4.9); Lymphocytes Percent Auto 23.2 % (20-40); Mean Corpuscular HGB Conc 33.7 g/dl (31.0-36.0); Mean Corpuscular Hemoglobin 31.6 pg (27.0-33.0); Mean Platelet Volume 9.8 fL (9.4-12.4); Monocytes Absolute Auto 0.8 X10*3/uL (0.1-1.2); Monocytes Percent Auto 8.5 % (2-11); Neutrophils Absolute Auto 6.3 x10*3/uL (2.0-8.3); Neutrophils Percent Auto 64.8 % (45-73); Platelet Count 283 X10*3/uL (160-400); Red Blood Count 4.33 X10*6/uL (4.60-5.80); Red Cell Distribution Width 12.5 % (11.0-16.0); White Blood Count 9.7 X10*3/uL (4.8-10.8)
[2023-10-17 10:43] LABS: Alanine Aminotransferase 21 U/L (0-40); Albumin Level 4.2 g/dL (3.5-5.0); Alkaline Phosphatase 81 U/L (39-117); Anion Gap 12 (12-20); Aspartate Amino Transferase 21 U/L (5-37); Bilirubin Total 0.4 mg/dL (0.0-1.0); Blood Urea Nitrogen 15 mg/dL (9-16); Calcium 9.5 mg/dL (8.4-10.2); Carbon Dioxide 25 mmol/L (22-29); Chloride 106 mmol/L (96-108); Cholesterol 145 mg/dL (<200); Estimated Glomerular Filt Rate > 60; Glucose Fasting 106 mg/dL (60-99); HDL Cholesterol 44 mg/dL (>40); LDL Cholesterol Calculated 75 mg/dL (<100); Potassium 4.1 mmol/L (3.3-5.1); Sodium 139 mmol/L (135-145); Triglycerides 130 mg/dL (<150)
[2023-10-17 10:50] LABS: TSH reflex Free T4 2.25 uIU/mL (0.32-4.0)
[2023-10-17 10:55] LABS: Appearance Urine Clear; Color Urine Yellow; Glucose Urine UA Negative (Negative); Leukocyte Esterase Urine Negative (Negative); Nitrite Urine Negative (Negative); Specific Gravity - Urine 1.015 (1.005-1.025); UMIC TRIGGER UACC YES; Urine Blood Trace (Negative); Urine Ketones Negative (Negative); Urine Protein Negative (Neg-Trace)
[2023-10-17 11:00] LABS: Prostate Specific Antigen 2.34 ng/mL (<0.05-4.0)
[2023-10-17 11:01] LABS: Bacteria Urine None Seen (None Seen); Hyaline Casts Urine 0-2 /LPF (0-2); Squamous Epithelial Cell Urine 0-2 /HPF (0-2); WBC Urine 0-5 /HPF (0-5)
== END 2023-10-17 06:44 | disposition home or self-care (01) ==
LOC: HO.HMGCLDS 06:43
PROVIDERS: PCP Nurse Practitioner Family; Referring Provider Nurse Practitioner Family; Visit Provider Nurse Practitioner Family
DX: Z13.89 Encounter for screening for other disorder (principal)
CPT/HCPCS: 36415; 80053; 80061; 81001; 81003; 84153; 84443; 85025; 99212

== ENCOUNTER 2023-10-17 13:03 | Outpatient (AMB) | payer MEDICARE, SELFPAY ==
--- NOTE | 2023-10-17 13:14 | MHC.OFFVIS ---
Intake Intake Visit Reasons: 4m/PSA/PVR Intake Note: Patient is present for follow up Elevated PSA (psa 2.34) Urology Medications: finasteride Antibiotic Allergy: None Blood Thinner: None Washroom Operator Required: No Accompanied by: Daughter Allergies No Known Allergies Allergy (Verified 10/17/23 13:49) Medication List - Last Reconciled 10/17/23 by JOHNNY MeansP- albuterol sulfate 90 mcg/actuation 2 puffs inhalation Q6-8H PRN cholecalciferol (vitamin D3) 50 mcg PO DAILY famotidine 20 mg PO BEDTIME finasteride 5 mg PO DAILY 90 days fluticasone propion-salmeterol 250-50 mcg/dose (Wixela Inhub) 1 ea inhalation BID PRN losartan-hydrochlorothiazide 50-12.5 mg 1 tab PO DAILY omeprazole 40 mg PO DAILY 30 days rosuvastatin 10 mg PO DAILY HPI HPI Comments History of Present Illness Details Oswaldo is a pleasant 78-year-old male patient of Dr. Kirkland who was accompanied by his daughter Lynette at today's visit. He has a past medical history of Alzheimer's disease, asthma, GERD, insomnia, osteoarthritis, sleep apnea, and vitamin-D deficiency. He presents to the office today for follow-up of hematuria as well as elevated PSA. In discussion with the patient today reports to be doing and feeling well. He reports compliance with 5 mg of finasteride daily. He denies any bothersome urinary issues or concerns. Previous workup has included a in office cystoscopy for gross hematuria 02/06 which noted no suspicious bladder tumors or abnormalities. Cytology 12/07- few atypical urethral cells, Cytology 01/07- negative for high-grade urethral carcinoma, and Cytology from 07/09 negative for high-grade urethral carcinoma. Retroperitoneal ultrasound noting right kidney with no calculi, or hydronephrosis noted. There is an anechoic cyst in the mid pole measuring 1.4 x 1.7 x 1.4 cm. Left kidney with no lesions, calculi, or hydronephrosis noted. The bladder is well distended and normal. Bilateral ureteral jets are demonstrated. Prevoid bladder volume is 240 mL. Postvoid bladder volume is 41.4 mL. The prostate is enlarged. It measures approxitamtely [address] urogram was also performed previously noting no stones and or hydronephrosis, mild prostate enlargement, and 4 mm nodule at the left lung base. Patient was referred to pulmonology and is currently following up with Dr. Bustillos. He otherwise denies any urinary issues or concerns at this time. He denies urinary urgency, urinary frequency, incontinence, nocturia, hematuria, dysuria, foul smelling urine, changes to urinary stream, flank pain, fever, and or chills. He is happy with his current voiding parameters. In office urinalysis results reviewed with the patient today. He denies having had any bouts of gross hematuria in the last 6 months. PSAs are as follows: 01/07 6.9 12% 06/09--2.4 10/08--2.3 PFSH Medical History Pulmonary nodules Atelectasis Mild cognitive impairment Nodule of parotid gland Alzheimer disease Short-term memory loss Testicular hypofunction Lipoma Vitamin D deficiency Insomnia Osteoarthritis Impotence Asthma GERD (gastroesophageal reflux disease) Sleep apnea Surgical History No pertinent past surgical history Family History Father Stroke Social History Housing: Apartment Patient Tobacco Use Status: Never used Tobacco Second Hand Smoke Exposure: No service: Yes Current occupational status: retired Cognitive needs: No Hearing needs: No Vision needs: No Review of Systems Const Reports as per HPI Eyes Reports no additional complaints ENT Reports no additional complaints Card Reports no additional complaints Resp Reports as per HPI GI Reports as per HPI Reports as per HPI Neuro Reports as per HPI Psych Reports as per HPI Endo Reports no additional complaints Physical Exam Const General: cooperative, healthy appearing, comfortable, no acute distress, well developed, alert and awake Nutritional Appearance: overweight Orientation/consciousness: oriented to person Limitations: no limitations HEENT Head: Yes normal to inspection, Yes normocephalic and Yes atraumatic Ears: hearing grossly normal bilaterally Eyes General: appearance normal, both eyes and all related structures Neck Neck: Yes normal visual inspection and Yes trachea midline Chest Chest palpation & inspection: normal inspection of the chest Resp Effort & Inspection: normal respiratory effort and able to speak in complete sentences Cardio Rate: regular rate GI Inspection: Yes normal to inspection General: Yes no CVA tenderness Back/Spine/Pelvis Back: no CVA tenderness Skin General skin exam: no rashes or lesions noted Neuro General: oriented to person Extrem General: Yes normal to inspection Psych Appearance: grossly normal and well kempt Mental Status: mental status grossly normal Speech and movement: Normal speech and movement present and Clear speech present Affect: normal affect Attitude: cooperative Thought process: Normal thought process present Thought content: Normal thought content present Insight: Limited insight present (Psych) Judgement: Limited judgement present (Psych) Results AMB Urinalysis, Automated UA Leukoctes 0 Lata/uL Last Edit by [employer] on 10/17/23 13:33 UA Nitrite Negative Last Edit by [employer] on 10/17/23 13:33 UA Urobilinogen 0.2 mg/dL Last Edit by [email or web address] on 10/17/23 13:33 UA Protein 15 mg/dL Last Edit by [employer] on 10/17/23 13:33 UA pH 6.0 Last Edit by [email or web address] on 10/17/23 13:33 UA Blood 80 Brenton/uL Last Edit by [employer] on 10/17/23 13:33 UA Specific [place] 1.020 Last Edit by [employer] on 10/17/23 13:33 UA Ketone Negative Last Edit by [employer] on 10/17/23 13:33 UA Bilirubin 0 mg/dL Last Edit by [employer] on 10/17/23 13:33 UA Glucose 0 mg/dL Last Edit by [employer] on 10/17/23 13:33 Results Reviewed Results Reviewed: Laboratory Last Values Urine pH (Auto) 6.0 10/17/23 13:32 Specific [place] (Auto) 1.020 10/17/23 13:32 Urine Protein (Auto) 15 mg/dL 10/17/23 13:32 Glucose (UA)(Auto) 0 mg/dL 10/17/23 13:32 Urine Ketones (Auto) Negative 10/17/23 13:32 Urine Blood (Auto) 80 Brenton/uL 10/17/23 13:32 Urine Nitrite (Auto) Negative 10/17/23 13:32 Urine Bilirubin (Auto) 0 mg/dL 10/17/23 13:32 Urine Urobilinogen (Auto) 0.2 mg/dL 10/17/23 13:32 Leukocyte Esterase (Auto) 0 Lata/uL 10/17/23 13:32 Assessment & Plan Assessment & Plan (1) Bladder outlet obstruction: Code(s): N32.0 - Bladder-neck obstruction (2) Gross hematuria: Code(s): R31.0 - Gross hematuria (3) Elevated PSA: Code(s): R97.20 - Elevated prostate specific antigen [PSA] (4) Microscopic hematuria: Code(s): R31.29 - Other microscopic hematuria (5) Abnormal urine cytology: Code(s): R82.89 - Other abnormal findings on cytological and histological examination of urine Plan In office urinalysis results reviewed with the patient today; as noted above; will send for urine cytology. Recent PSA results reviewed with the patient today; as noted above. Continue finasteride 5 mg daily as discussed and prescribed. Discussed continuation of surveillance monitoring of PSA given minimal decrease in the last 4 months. He otherwise denies any bothersome urinary issues or concerns. He reports be happy with current voiding parameters. Will obtain PSA in 4 months. Follow-up in 4 months with lab to be completed prior; or sooner with any issues, concerns, and or questions. Orders: Orders AMB Urinalysis Automated Today Z13.9 - Encounter for screening, unspecified Prostate Specific Antigen 4 Months R97.20 - Elevated prostate specific antigen [PSA] Urine Cytology Today R31.29 - Other microscopic hematuria Patient Instructions: The patient had an opportunity to ask questions regarding the treatment plan. All questions were answered. Physical exam, labs, and imaging were discussed and reviewed in detail. As well as risks, benefits, and discussion of treatment choices. No major barriers to understanding were identified. The patient expressed understanding and agreement with the above treatment plan. The patient was made aware they should contact our office by phone for worsening of their current condition, the appearance of new symptoms, or with any questions or concerns. Compliance is encouraged with any medications and follow up testing that is ordered. It is a privilege to be allowed the opportunity to participate in? your urological care.? Again, if you have any questions or concerns If you have any questions or concerns please do not hesitate to contact me. The office is [phone]. This note is constructed using voice recognition software. While every effort has been made to ensure accuracy nutrition worker errors may have been included. Yours sincerely, DANN Means Coding Level of Care Code Est Pt Level 3 (08670) Diagnoses Bladder outlet obstruction N32.0 Gross hematuria R31.0 Elevated PSA R97.20 Microscopic hematuria R31.29 Abnormal urine cytology R82.89
== END 2023-10-17 13:58 | disposition home or self-care (01) ==
PROVIDERS: PCP Nurse Practitioner Family; Visit Provider Nurse Practitioner Family
DX: N32.0 Bladder-neck obstruction (principal); R31.0 Gross hematuria; R97.20 Elevated prostate specific antigen [PSA]; R31.29 Other microscopic hematuria; R82.89 Other abnormal findings on cytological and histological examination of urine
CPT/HCPCS: 99213

== ENCOUNTER 2023-10-17 16:09 | Outpatient (REF) | payer MEDICARE, SELFPAY ==
[2023-10-18 09:22] LABS: Urine Cytology See Pathology rpt
== END 2023-10-17 16:10 | disposition home or self-care (01) ==
LOC: HO.LNP 16:09
PROVIDERS: Visit Provider Nurse Practitioner Family
DX: R31.29 Other microscopic hematuria (principal); D64.9 Anemia, unspecified; E78.5 Hyperlipidemia, unspecified; Z12.5 Encounter for screening for malignant neoplasm of prostate
CPT/HCPCS: 36415; 80053; 80061; 81001; 81003; 84153; 84443; 85025; 88112; 99212

== ENCOUNTER → 2023-10-18 20:30 | Outpatient (REF) | payer MEDICARE, SELFPAY | LOC: HO.SL 20:30 | PROVIDERS: PCP Nurse Practitioner Family; Visit Provider Nurse Practitioner Family | DX: G47.30 Sleep apnea, unspecified (principal); G31.84 Mild cognitive impairment of uncertain or unknown etiology; G47.19 Other hypersomnia; I10 Essential (primary) hypertension; E66.9 Obesity, unspecified; R31.29 Other microscopic hematuria | CPT/HCPCS: 95810 ==

== ENCOUNTER → 2023-10-18 22:55 | Outpatient (BNV) | payer MEDICARE, SELFPAY | PROVIDERS: PCP Nurse Practitioner Family; Visit Provider Psychiatry & Neurology Neurology | DX: G47.19 Other hypersomnia (principal) | CPT/HCPCS: 95810 ==

== ENCOUNTER 2023-10-24 11:05 | Outpatient (REF) | payer MEDICARE, SELFPAY ==
--- NOTE | ~2023-10-24 | US_ITS ---
EXAMINATION: US SOFT TISSUE HEAD/NECK CLINICAL INFORMATION: Other diseases of salivary glands. 4 mm hypodensity of left parotid gland. COMPARISON: CT cervical spine 12/11/2022. TECHNIQUE: Linear transducer quiroz-scale and color Doppler examination with attention to the region of the left parotid gland with the right parotid image for comparison. FINDINGS: The parotid glands are normal appearing. There are small intraparotid lymph nodes seen bilaterally measuring 1.3 x 0.6 x 0.7 cm on the left and 1.1 x 0.5 x 0.7 cm on the right. US/US soft tiss head and/or neck IMPRESSION: Normal-appearing parotid glands. There are small bilateral intraparotid lymph nodes. No mass seen.
== END 2023-10-24 11:06 | disposition home or self-care (01) ==
LOC: HO.HMGCX 11:05
PROVIDERS: PCP Nurse Practitioner Family; Visit Provider Nurse Practitioner Family
DX: K11.8 Other diseases of salivary glands (principal)
CPT/HCPCS: 76536

== ENCOUNTER 2023-11-18 13:38 | Outpatient (REF) | payer MEDICARE, SELFPAY ==
[2023-11-18 14:23] LABS: FIT Int Ctl YES; FIT1 NEGATIVE (NEGATIVE); FIT2 NEGATIVE (NEGATIVE)
== END 2023-11-18 13:39 | disposition home or self-care (01) ==
LOC: HO.LNP 13:38
PROVIDERS: Visit Provider Nurse Practitioner Family
DX: D64.9 Anemia, unspecified (principal)
CPT/HCPCS: 82274

== ENCOUNTER 2023-12-05 12:30 | Outpatient (REF) | payer MEDICARE, SELFPAY ==
--- NOTE | ~2023-12-05 | CT_ITS ---
EXAMINATION: CT CHEST WITHOUT CONTRAST CLINICAL INFORMATION: Atelectasis COMPARISON: 06/06/2023, 02/04/2023 TECHNIQUE: Multidetector volumetric CT imaging of the chest was done. Axial MIP volume rendering provided. Sagittal and coronal reformatted images were obtained. This CT examination was performed using dose optimization techniques as appropriate, variously including the following: *Automated exposure control *Adjustment of mA and/or kV according to patient size (this includes techniques or standardized protocols for targeted exams where dose is matched to indication/reason for exam; i.e. extremities or head) *Use of iterative reconstruction technique DLP: 228 mGy-cm FINDINGS: LUNGS: Mild emphysema. Right upper lobe subpleural 4 mm nodule is unchanged (5:214). Right upper lobe 4 mm nodule is unchanged (5:146). Redemonstration of linear atelectasis versus scarring in the right middle lobe. Left lower lobe 4 mm nodule is unchanged (5:420). No new or enlarging pulmonary nodule. Central airways are patent. PLEURA: No pleural effusion. MEDIASTINUM: No cardiomegaly. Aorta and pulmonary artery are normal in caliber. No mediastinal adenopathy. Lack of IV contrast limits evaluation for hilar adenopathy. CORONARY ARTERY CALCIFICATION: No coronary artery calcification appreciated. CHEST WALL/AXILLA: No axillary or internal mammary lymphadenopathy. UPPER ABDOMEN: Small hiatal hernia. Left hepatic lobe hypoattenuating 1.8 cm water dense lesion, unchanged and likely reflects a hepatic cyst. OSSEOUS STRUCTURES: Unremarkable. CT/CT chest wo IV con IMPRESSION: Bilateral pulmonary nodules measuring up to 4 mm are unchanged. No new or enlarging pulmonary nodule. According to the UPDATED 2017 Fleischner Society recommendations, the advised followup imaging for solid nodules < 6 mm is: LOW RISK PATIENT: No routine follow up. HIGH RISK PATIENT: Optional CT at 12 months. This exam was submitted to the interpreting radiologist for interpretation on 01/17/2024 9:30 AM.
== END 2023-12-05 12:31 | disposition home or self-care (01) ==
LOC: HO.CT 12:30
PROVIDERS: PCP Nurse Practitioner Family; Visit Provider Hospitalist
DX: R91.8 Other nonspecific abnormal finding of lung field (principal); J98.11 Atelectasis
CPT/HCPCS: 71250

== ENCOUNTER 2023-12-19 14:01 | Outpatient (AMB) | payer MEDICARE, SELFPAY ==
--- NOTE | 2023-12-19 14:37 | A.OFFVIS_ITS ---
Vital Signs 12/19/23 14:42 Height 5 ft 7 in Weight 217 lb BMI 34.0 Pulse 82 Pulse Source Pulse Oximeter Pulse Oximetry (%) 94 Oxygen Delivery Method Room Air Intake Visit Reasons: pulm nodules Heddler Tier Required: No Allergies No Known Allergies Allergy (Verified 12/19/23 14:44) HPI Comments Details: The patient is a 78-year-old gentleman who has no underlying respiratory issues and had a abnormal finding on an iimaging studies. Apparently the patient underwent a CT scan of the abdomen pelvis and was noted to have a small pulmonary nodule measuring 4 mm in size and is lower lung zones. The patient has not had any formal imaging studies of the chest however. Therefore is difficult to further address the pulmonary nodule in view of not being able to evaluate the whole lung parenchyma. The patient did also have a CT scan of the spine the cervical spine sometime in the spring that actually also demonstrated hypodensity, also measuring 4 mm on the parotid gland. This is something that may be have to be further evaluated as well. The patient currently is doing well from a respiratory status therefore we will hold off on any imaging studies. Will plan to do a formal CT scan of the chest to better address the pulmonary finding however. Once he does get the formal CT scan of the chest will review all the images together and make sure that this process is not progressing. 06/13/2023 the patient is here for a pulmonary follow-up visit. Overall the patient has been doing well. He denies any respiratory complaints. He did undergo a formal CT scan of the chest which we personally reviewed. Has not been officially been read yet. The patient has multiple pulmonary nodules in the largest nodule measuring 5-6 mm in size in the right hemithorax. In add ition to that has numerous other nodules. More significant is the degree of atelectasis that he has in the right middle lobe area. Moderate severity. We did talk about ways to try to expand that right middle lobe. he is going to be provide an Acapella valve for CPT and also work on deep breathing exercises. Will plan to repeat the CT scan in 6 months to assess the degree of atelectasis. If the patient has atelectasis worsens or if he becomes symptomatic then an airway survey with bronchoscopy will be warranted. Otherwise regarding the pulmonary nodules that do not appear to be concerning in appearance. However, will require a 2 year follow-up altogether. In addition, the patient did have a cervical CT scan that we had discussed before that appeared to have a 4 mm hypodensity nodular density in the parotid gland. He will be following up with his primary care doctor soon so therefore they can discuss further evaluation for that during that visit. 12/19/2023 the patient is here for a pulmonary follow-up visit. Overall the patient has been doing well. Denies any underlying respiratory complaints. We did talk about trying to expand his atelectatic lung. Although he really did not use the Acapella valve. He did have a repeat CT scan of the chest which we personally reviewed and compared to his previous 1. his most recent CT scan has not been officially read. The largest nodule measuring 6 mm in size. I did compare the pulmonary nodules. Seems like the metoprolol pulmonary nodule slightly bigger in size. Still with well-circumscribed margins. There the nodular densities have been stable in size. Will have to wait for the final read on the CT scan. Based on the increased size of the nodular density will likely have to repeat the CT scan and treated 6 months. The patient does have a rescue inhaler. He has not had to use it. We did talk about increasing his exercise activity since he still has the atelectasis of the right middle lobe area. He is going to start walking more regularly and working on deep breathing exercises. [facility] Medical History Pulmonary nodules Atelectasis Mild cognitive impairment Nodule of parotid gland Alzheimer disease Short-term memory loss Testicular hypofunction Lipoma Vitamin D deficiency Insomnia Osteoarthritis Impotence Asthma GERD (gastroesophageal reflux disease) Sleep apnea Surgical History No pertinent past surgical history Family History Father Stroke Social History Housing: Apartment Patient Tobacco Use Status: Never used Tobacco Second Hand Smoke Exposure: No service: Yes Current occupational status: retired Cognitive needs: No Hearing needs: No Vision needs: No Review of Systems Const Denies chills and Denies fever(s) ENT Reports no additional complaints Card Reports no additional complaints and Denies syncope Resp Denies cough and Denies wheezing GI Denies abdominal pain and Denies heartburn Skin/Breast Denies rash Neuro Denies syncope Carlos/Lymph Denies lymphadenopathy Aller/Immun Denies wheezing Physical Exam Vital Signs: Last Vital Signs Pulse 82 12/19/23 14:42 Pulse Ox 94 12/19/23 14:42 Oxygen Delivery Method Room Air 12/19/23 14:42 BMI result Body Mass Index 34.0 Const General: comfortable HEENT Head: Yes normocephalic Eyes General: appearance normal, both eyes and all related structures Neck Neck: Yes supple Chest Chest palpation & inspection: normal inspection of the chest Resp Effort & Inspection: normal respiratory effort Auscultation: clear to auscultation bilaterally Cardio Rate: regular rate Rhythm: regular rhythm Heart sounds: S1 normal heart sound present and S2 normal heart sound present GI Palpation (GI): Soft to palpation Skin General skin exam: no rashes or lesions noted Extrem General: Yes no clubbing, cyanosis or edema Assessment & Plan Assessment & Plan (1) Atelectasis: Code(s): J98.11 - Atelectasis Category: Medical (2) Pulmonary nodules: Code(s): R91.8 - Other nonspecific abnormal finding of lung field Category: Medical Plan CPT with acapella valve and deep breathing exercises repeat CT chest in 3-6 months, awaiting final impression of the recent CT chest LONA as needed F/U 6 months Coding Level of Care Code Est Pt Level 4 (96542) Diagnoses Atelectasis J98.11 Pulmonary nodules R91.8 Time Spent (min) 18
[2023-12-19 14:42] VITALS: PULSE 82; O2SAT 94; BMI 34.0
== END 2023-12-19 15:11 | disposition home or self-care (01) ==
PROVIDERS: PCP Nurse Practitioner Family; Visit Provider Hospitalist
DX: J98.11 Atelectasis (principal); R91.8 Other nonspecific abnormal finding of lung field
CPT/HCPCS: 99214

== ENCOUNTER → 2023-12-19 14:01 | Outpatient (BNVA) | payer MEDICARE, SELFPAY | PROVIDERS: PCP Nurse Practitioner Family; Visit Provider Hospitalist | DX: R91.8 Other nonspecific abnormal finding of lung field (principal); J98.11 Atelectasis | CPT/HCPCS: 99212 ==

== ENCOUNTER 2023-12-21 13:42 | Outpatient (AMB) | payer MEDICARE, SELFPAY ==
--- NOTE | 2023-12-21 13:47 | MHC.PC.OV ---
Vital Signs 12/21/23 13:48 12/21/23 14:46 Height 5 ft 7 in Weight 217 lb 2 oz BMI 34.0 BP 150/72 H 136/88 Blood Pressure Location Lt brachial Rt brachial Position Sitting Sitting Pulse 91 Pulse Source Pulse Oximeter Pulse Oximetry (%) 94 Oxygen Delivery Method Room Air Intake Visit Reasons: Follow up Per Abdifatah Allergies No Known Allergies Allergy (Verified 12/21/23 13:50) Medication List - Last Reconciled 12/21/23 by DANN Hernandez albuterol sulfate 90 mcg/actuation 2 puffs inhalation Q6-8H PRN cholecalciferol (vitamin D3) 50 mcg PO DAILY famotidine 20 mg PO BEDTIME finasteride 5 mg PO DAILY 90 days fluticasone propion-salmeterol 250-50 mcg/dose (Wixela Inhub) 1 ea inhalation BID PRN losartan-hydrochlorothiazide 50-12.5 mg 1 tab PO DAILY omeprazole 40 mg PO DAILY 30 days rosuvastatin 10 mg PO DAILY Tobacco use date assessed: 12/21/23 Fall risk assessment: No Falls in past year Last assessed Fall Risk: 12/21/23 Dental Screening Dental Screen Date: 12/21/23 Did you have a dental visit in the last 12 months?: Yes Did you have a dental problem in the last 6 months where you did not have access to dental care?: No Was dental information given to patient?: Patient has dentist HPI Follow up Per Abdifatah HPI Details Pt is here for a PE. Labs have been ordered. PSA is up to date. Will order cologuard. Pt is following up with urology, pulmonology, neurology, and derm. Scrotal cyst noted on exam, will order US. [facility] Medical History Pulmonary nodules Atelectasis Mild cognitive impairment Nodule of parotid gland Alzheimer disease Short-term memory loss Testicular hypofunction Lipoma Vitamin D deficiency Insomnia Osteoarthritis Impotence Asthma GERD (gastroesophageal reflux disease) Sleep apnea Surgical History No pertinent past surgical history Family History Father Stroke Social History Housing: Apartment Patient Tobacco Use Status: Never used Tobacco e-Cigarette/Vaping Use: Never Used Second Hand Smoke Exposure: No service: Yes Current occupational status: retired Cognitive needs: No Hearing needs: No Vision needs: No Questionnaire PHQ-9 Over the last 2 weeks, how often have you been bothered by any of the following problems? 49411 - PHQ-9 Billing: Patient declined-do not bill Source: Developed by Drs. Karthik Espinosa, Ginger Carpio, Augusto Arellano and colleagues, with an educational breanna from [employer]. Thrive Questionnaire Date Thrive assessed: 10/12/23 AUDIT C Alcohol Use Questionnaire (AUDIT-C) 1. How often do you have a drink containing alcohol?: Never 3. How often do you have six or more drinks on one occasion?: Never Total Score: 0 Score Reviewed/Action Taken: Yes TRINIDAD-7 AMB Questionnaire TRINIDAD-7 Date TRINIDAD - 7 assessed: 10/12/23 Source: Developed by Drs. Karthik Espinosa, Ginger Carpio, Augusto Arellano and colleagues, with an educational breanna from [employer]. TRINIDAD-7 Assessment Billing TRINIDAD-7 Assessment Tool: pt declined-do not bill Review of Systems Const Denies chills and Denies fever(s) Eyes Denies blurry vision ENT Denies vertigo, Denies dizziness and Denies sore throat Card Denies chest pain at rest, Denies chest pain with activity, Denies diaphoresis, Denies dyspnea and Denies dyspnea on exertion Resp Denies cough, Denies dyspnea, Denies dyspnea on exertion and Denies wheezing GI Denies abdominal pain, Denies melena, Denies hematochezia, Denies constipation, Denies diarrhea and Denies loose stools Denies hematuria Musc Denies numbness and Denies tingling Skin/Breast Denies lesions Neuro Denies vertigo, Denies dizziness, Denies numbness and Denies tingling Psych Denies anxiety, Denies depression, Denies homicidal ideation, Denies suicidal ideation and Denies other (substance abuse) Aller/Immun Denies wheezing Physical exam (Primary Care) Vital Signs: Last Vital Signs Pulse 91 12/21/23 13:48 BP 150/72 H 12/21/23 13:48 Pulse Ox 94 12/21/23 13:48 Oxygen Delivery Method Room Air 12/21/23 13:48 BMI result Body Mass Index 34.0 Tobacco/Smoking Status: Tobacco use Status Tobacco use date assessed 12/21/23 12/21/23 13:51 Patient Tobacco Use Status Never used Tobacco 12/21/23 13:48 e-Cigarette/Vaping Use Never Used 12/21/23 13:51 Thrive Assessment: Date of Thrive Assessment Date Thrive assessed 10/12/23 12/21/23 13:48 Const General: cooperative Nutritional Appearance: obese Orientation/consciousness: patient oriented x3 HENMT Head: Yes normal to inspection, Yes normocephalic and Yes atraumatic Ears: TM's normal bilaterally Eyes General: appearance normal, both eyes and all related structures Alignment and Position: alignment normal and position normal Neck Neck: Yes normal visual inspection and Yes no lymphadenopathy Thyroid: Thyroid normal Resp Effort & Inspection: normal respiratory effort Auscultation: clear to auscultation bilaterally Cardio Rate: regular rate Rhythm: regular rhythm Heart sounds: S1 normal heart sound present, S2 normal heart sound present and no murmurs GI Palpation (GI): Soft to palpation and nontender Auscultation: normal bowel sounds Other: just superior to left testicle with small cystic lesion, not tender to touch Male General Exam: Yes normal external exam Penis: normal penis Scrotum: scrotum normal, testes descended bilaterally and no inguinal hernias Testes: no testicular mass Skin Rashes: no rashes Neuro General: patient oriented x3, moves all extremities, no focal motor deficits and deep tendon reflexes 2+ bilaterally Romberg Test: Negative Psych Appearance: grossly normal Mental Status: mental status grossly normal Speech and movement: Normal speech and movement present Affect: normal affect Attitude: cooperative Thought process: Normal thought process present Thought content: Normal thought content present Insight: Good insight present (Psych) Judgement: Good judgement present (Psych) Assessment and Plan Assessment & Plan (1) Scrotal cyst: Code(s): L72.9 - Follicular cyst of the skin and subcutaneous tissue, unspecified Plan: US ordered (2) Physical exam: Code(s): Z00.00 - Encounter for general adult medical examination without abnormal findings Plan: labs ordered Plan The patient agreed to the use of a biomedical field service engineer for this encounter. Scribed for Abdifatah Reyes, FIELD SALES EXECUTIVE- by Janice Cifuentes biomedical field service engineer, on 12/21/2023 at 14:30 EST. Orders: Orders US scrotum Today L72.9 - Follicular cyst of the skin and subcutaneous tissue, unspecified Referrals Cologuard Test Z12.11 - Encounter for screening for malignant neoplasm of colon, Z12.12 - Encounter for screening for malignant neoplasm of rectum Coding Level of Care Code Est Pt Prev Care >65y(11799) Diagnoses Scrotal cyst L72.9 Physical exam Z00.00
[2023-12-21 13:48] VITALS: BP 150/72; PULSE 91; O2SAT 94; BMI 34.0
[2023-12-21 14:46] VITALS: BP 136/88
== END 2023-12-21 15:19 | disposition home or self-care (01) ==
PROVIDERS: PCP Nurse Practitioner Family; Visit Provider Nurse Practitioner Family
DX: L72.9 Follicular cyst of the skin and subcutaneous tissue, unspecified (principal); Z00.00 Encounter for general adult medical examination without abnormal findings
CPT/HCPCS: 99397

== ENCOUNTER 2023-12-26 09:46 | Outpatient (REF) | payer MEDICARE, SELFPAY ==
[2023-12-26 12:58] LABS: MANUAL DIFF FLAG NO
[2023-12-26 13:16] LABS: Basophils Absolute Auto 0.1 X10*3/uL (0.0-0.2); Basophils Percent Auto 0.6 % (0-2); Eosinophils Absolute Auto 0.3 X10*3/uL (0.0-0.4); Eosinophils Percent Auto 2.8 % (0-4); Hematocrit 43.7 % (42.0-52.0); Hemoglobin 14.4 g/dl (14.0-18.0); Imm Gran Abs Auto 0.03 X10*3/uL (0.00-0.03); Imm Gran Pct Auto 0.3 % (0.0-0.4); Lymphocytes Absolute Auto 1.9 X10*3/uL (1.2-4.9); Lymphocytes Percent Auto 20.9 % (20-40); Mean Corpuscular Volume 97.1 fL (80.0-98.0); Mean Platelet Volume 9.8 fL (9.4-12.4); Monocytes Absolute Auto 0.8 X10*3/uL (0.1-1.2); Monocytes Percent Auto 8.3 % (2-11); Neutrophils Absolute Auto 6.1 x10*3/uL (2.0-8.3); Neutrophils Percent Auto 67.1 % (45-73); Platelet Count 282 X10*3/uL (160-400); Red Cell Distribution Width 12.8 % (11.0-16.0)
[2023-12-26 13:38] LABS: Appearance Urine Clear; Color Urine Yellow; Glucose Urine UA Negative (Negative); Leukocyte Esterase Urine Negative (Negative); Nitrite Urine Negative (Negative); PH 7.5 (5.0-9.0); Specific Gravity - Urine 1.015 (1.005-1.025); Urine Blood Negative (Negative); Urine Ketones Negative (Negative); Urine Protein Negative (Neg-Trace)
[2023-12-26 13:50] LABS: Iron 87 mcg/dL (45-160); Percent Iron Saturation 27 % (15-50); Total Iron Binding Capacity 319 mcg/dL (228-428); Unsaturated Iron Binding 232 ug/dL
[2023-12-26 13:54] LABS: Ferritin 49 ng/mL (20-250)
[2023-12-26 14:01] LABS: Folate 7.6 ng/mL (> or = 4.0); Vitamin B12 337 pg/mL (200-900)
[2023-12-27 11:34] LABS: Hematocrit 42.7 % (38.5-50.0); Hemoglobin 14.5 g/dL (13.2-17.1); MCH 32.3 pg (27.0-33.0); MCV 95.1 fL (80.0-100.0); RBC 4.49 Million/uL (4.20-5.80); RDW 12.3 % (11.0-15.0)
== END 2023-12-26 09:47 | disposition home or self-care (01) ==
LOC: HO.HMGCLDS 09:46
PROVIDERS: PCP Nurse Practitioner Family; Visit Provider Nurse Practitioner Family
DX: D64.9 Anemia, unspecified (principal); E78.5 Hyperlipidemia, unspecified
CPT/HCPCS: 36415; 81003; 82607; 82728; 82746; 83020; 83540; 85014; 85018; 85025; 85041

== ENCOUNTER 2024-01-09 11:11 | Outpatient (REF) | payer MEDICARE, SELFPAY ==
--- NOTE | ~2024-01-09 | US_ITS ---
EXAMINATION: US SCROTUM CLINICAL INFORMATION: Follicular cyst of the skin and subcutaneous tissue, unspecified . COMPARISON: None available. TECHNIQUE: A sonogram of the scrotum was performed assessing quiroz-scale appearance and color Doppler flow. Spectral Doppler analysis of the arterial and venous flow were performed in the testes bilaterally. FINDINGS: RIGHT: Right testicle measures 4.5 x 2.0 x 4.2 cm, volume 19.7 mL. No focal testicular parenchymal lesions are visualized. Spectral Doppler analysis of the arterial and venous flow is normal in the right testis. Right epididymal head is normal in size. A 1.0 cm epididymal cyst is present in the head of the epididymis with a 1.1 cm cyst present in the body of the epididymis. A [id number] right hydrocele present with debris. There is a small varicocele. No flow is seen within this varicocele although the technologist who performed the exam did not indicate that this was thrombosed. Right epididymal Doppler flow is normal. LEFT: Left testicle measures 4.0 x 2.1 x 2.9 cm, volume 12.3 mL. No focal testicular parenchymal lesions are visualized. Spectral Doppler analysis of the arterial and venous flow is normal in the left testis. Left epididymal head is normal in size. A 0.5 cm cyst is present in the head of the epididymis with small left hydrocele present with debris. There is a small varicocele. No flow is seen within this varicocele although the technologist who performed the exam did not indicate that this was thrombosed. Left epididymal Doppler flow is normal. US/US scrotum IMPRESSION: 1. Bilateral epididymal cysts. 2. Bilateral hydroceles with debris. 3. Bilateral varicoceles.
== END 2024-01-09 11:12 | disposition home or self-care (01) ==
LOC: HO.HMGCX 11:11
PROVIDERS: PCP Nurse Practitioner Family; Visit Provider Nurse Practitioner Family
DX: L72.9 Follicular cyst of the skin and subcutaneous tissue, unspecified (principal); G47.30 Sleep apnea, unspecified; G47.19 Other hypersomnia; R41.3 Other amnesia; R06.83 Snoring
CPT/HCPCS: 76870; 99212

== ENCOUNTER 2024-01-09 14:38 | Outpatient (AMB) | payer MEDICARE, SELFPAY ==
--- NOTE | 2024-01-09 15:07 | MHC.OFFVIS ---
Vital Signs 01/09/24 15:11 Height 5 ft 7 in Weight 217 lb BMI 34.0 BP 140/82 H Blood Pressure Location Rt brachial Position Sitting Pulse 80 Pulse Source Pulse Oximeter Pulse Oximetry (%) 98 Oxygen Delivery Method Room Air Intake Visit Reasons: follow up Cognitive impairment-conf Intake Note: Patient presents for follow up cognitive impairment. no changes. Allergies No Known Allergies Allergy (Verified 01/09/24 15:15) Medication List - Last Reconciled 01/09/24 by ARASELI Aguilar albuterol sulfate 90 mcg/actuation 2 puffs inhalation Q6-8H PRN cholecalciferol (vitamin D3) 50 mcg PO DAILY famotidine 20 mg PO BEDTIME finasteride 5 mg PO DAILY 90 days fluticasone propion-salmeterol 250-50 mcg/dose (Wixela Inhub) 1 ea inhalation BID PRN losartan-hydrochlorothiazide 50-12.5 mg 1 tab PO DAILY omeprazole 40 mg PO DAILY 30 days rosuvastatin 10 mg PO DAILY HPI Comments Details: 78-yr-old male presents for f/u visit for cognitive difficulties. Pt is accompanied by his , Luz, and dtr, Lynette Mccallum Pt denies any significant interval medical changes. Pt reports his memory is about 10 % worse overall. He does have some STM lapses. He was unable to complete the in-lab PSG study. Pt states he could not sleep at the clinic. He does have a h/o sleep apnea and used CPAP, but he hated it . As he did not complete the in-lab sleep study, he did not do the neuro-psych eval. He is still sleepy, has snoring. He does socialize. He is not exercising- not regularly active. He states he used to work for the old [employer]- he worked there for 30 yrs, he notes there was increased chemical exposures during his last yr of work. 06/23/2023, MR/MR head/brain wo con IMPRESSION: 1. 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 2. 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 [facility] Medical History (Updated 01/09/24 @ 16:13 by ARASELI Aguilar) Macular hole Pulmonary nodules Atelectasis Mild cognitive impairment Nodule of parotid gland Alzheimer disease Short-term memory loss Testicular hypofunction Lipoma Vitamin D deficiency Insomnia Osteoarthritis Impotence Asthma GERD (gastroesophageal reflux disease) Sleep apnea Surgical History No pertinent past surgical history Family History Father Stroke Social History Housing: Apartment Patient Tobacco Use Status: Never used Tobacco e-Cigarette/Vaping Use: Never Used Second Hand Smoke Exposure: No service: Yes Current occupational status: retired Cognitive needs: No Hearing needs: No Vision needs: No Physical Exam Vital Signs: Last Vital Signs Pulse 80 01/09/24 15:11 BP 140/82 H 01/09/24 15:11 Pulse Ox 98 01/09/24 15:11 Oxygen Delivery Method Room Air 01/09/24 15:11 BMI result Body Mass Index 34.0 Const General: cooperative and no acute distress Orientation/consciousness: patient oriented x3 Resp Effort & Inspection: normal respiratory effort and able to speak in complete sentences Neuro General: patient oriented x3 Cranial nerves: Yes CN's II-XII intact bilaterally Cognition (Neuro): normal cognition Psych Appearance: grossly normal Mental Status: mental status grossly normal Speech and movement: Normal speech and movement present Affect: normal affect Attitude: cooperative Assessment & Plan Assessment & Plan (1) Sleep apnea: Code(s): G47.30 - Sleep apnea, unspecified Category: Medical (2) Excessive daytime sleepiness: Code(s): G47.19 - Other hypersomnia Category: Medical (3) Short-term memory loss: Code(s): R41.3 - Other amnesia Category: Medical (4) Snoring: Code(s): R06.83 - Snoring Category: Medical Plan Pt advised to undergo f/u HST., as he was unable to sleep during the in-lab sleep study. Hold neuro-psych eval for now- pt is not interested at this time. Increase physical activity. Consider retrying low dose Namenda ER in f/u. f/u in 6 months or sooner prn Orders: Orders RT home sleep study Today G47.19 - Other hypersomnia, G47.30 - Sleep apnea, unspecified, R06.83 - Snoring Coding Level of Care Code Est Pt Level 4 (27967) Diagnoses Sleep apnea G47.30 Excessive daytime sleepiness G47.19 Short-term memory loss R41.3 Snoring R06.83
[2024-01-09 15:11] VITALS: BP 140/82; PULSE 80; O2SAT 98; BMI 34.0
== END 2024-01-09 16:21 | disposition home or self-care (01) ==
PROVIDERS: PCP Nurse Practitioner Family; Visit Provider Nurse Practitioner Family
DX: G47.30 Sleep apnea, unspecified (principal); G47.19 Other hypersomnia; R41.3 Other amnesia; R06.83 Snoring
CPT/HCPCS: 99214

== ENCOUNTER 2024-02-08 07:00 | Outpatient (AMB) | payer MEDICARE, SELFPAY ==
--- NOTE | 2024-02-08 07:13 | MHC.PC.OV ---
Intake Visit Reasons: Follow up US results-Android Allergies No Known Allergies Allergy (Verified 01/09/24 15:15) Tobacco use date assessed: 12/21/23 Dental Screening Dental Screen Date: 12/21/23 HPI Follow up US results-Android HPI Details Pt had a recent scrotum US which showed bilateral epididymal cysts, bilateral hydroceles with debris, and bilateral varicoceles. Pt is following up with urology, sending results to them. He does not have any discomfort. Denies fever, chills, and dizziness. Pt's daughter was on the phone to help answer questions and provide information. [facility] Medical History (Updated 01/09/24 @ 16:13 by ARASELI Aguilar) Macular hole Pulmonary nodules Atelectasis Mild cognitive impairment Nodule of parotid gland Alzheimer disease Short-term memory loss Testicular hypofunction Lipoma Vitamin D deficiency Insomnia Osteoarthritis Impotence Asthma GERD (gastroesophageal reflux disease) Sleep apnea Surgical History No pertinent past surgical history Family History Father Stroke Social History Housing: Apartment Patient Tobacco Use Status: Never used Tobacco e-Cigarette/Vaping Use: Never Used Second Hand Smoke Exposure: No service: Yes Current occupational status: retired Cognitive needs: No Hearing needs: No Vision needs: No Questionnaire Thrive Questionnaire Date Thrive assessed: 10/12/23 TRINIDAD-7 AMB Questionnaire TRINIDAD-7 Date TRINIDAD - 7 assessed: 10/12/23 Source: Developed by Drs. Karthik Espinosa, Ginger Carpio, Augusto Arellano and colleagues, with an educational breanna from [employer]. Review of Systems Const Reports as per HPI Physical exam (Primary Care) Tobacco/Smoking Status: Tobacco use Status Tobacco use date assessed 12/21/23 02/08/24 07:14 Patient Tobacco Use Status Never used Tobacco 02/08/24 07:14 e-Cigarette/Vaping Use Never Used 02/08/24 07:14 Thrive Assessment: Date of Thrive Assessment Date Thrive assessed 10/12/23 02/08/24 07:14 Const General: cooperative Orientation/consciousness: patient oriented x3 Neuro General: patient oriented x3 Psych Appearance: grossly normal Mental Status: mental status grossly normal Speech and movement: Clear speech present Affect: normal affect Attitude: cooperative Thought process: Normal thought process present Thought content: Normal thought content present Insight: Good insight present (Psych) Judgement: Good judgement present (Psych) Telehealth Telehealth Telehealth Platform: [employer] Location of provider rendering services: practice address Location of patient: address on file Patient Identification confirmed using: Name, : Yes Telehealth method: video Patient verbally consented to treatment: Yes Patient verbally consented to billing insurance company: Yes Patient informed of any privacy concerns related to visit: Yes Minutes spent on Phone/Video with Pt.: 10 Assessment and Plan Assessment & Plan (1) Scrotal cyst: Code(s): L72.9 - Follicular cyst of the skin and subcutaneous tissue, unspecified Plan: Following up with urology Plan The patient agreed to the use of a biomedical equipment specialist for this encounter. Scribed for ARASELI Vasquez-SANJEEV by lynn Romero scribe, on 02/08/2024 at 07:15 EST. Coding Level of Care Code Tele Est Pt Level 3 (48693) Diagnoses Scrotal cyst L72.9
== END 2024-02-08 10:55 | disposition home or self-care (01) ==
LOC: HO.HMGC 07:00
PROVIDERS: PCP Nurse Practitioner Family; Visit Provider Nurse Practitioner Family
DX: L72.9 Follicular cyst of the skin and subcutaneous tissue, unspecified (principal)
CPT/HCPCS: 99213

== ENCOUNTER 2024-02-17 10:57 | Outpatient (REF) | payer MEDICARE, SELFPAY ==
[2024-02-17 13:53] LABS: Prostate Specific Antigen 2.61 ng/mL (<0.05-4.0)
== END 2024-02-17 10:58 | disposition home or self-care (01) ==
LOC: HO.HMGCLDS 10:57
PROVIDERS: PCP Nurse Practitioner Family; Visit Provider Nurse Practitioner Family
DX: R97.20 Elevated prostate specific antigen [PSA] (principal); Z12.5 Encounter for screening for malignant neoplasm of prostate
CPT/HCPCS: 36415; 84153

== ENCOUNTER 2024-02-20 13:39 | Outpatient (AMB) | payer MEDICARE, SELFPAY ==
--- NOTE | 2024-02-20 13:40 | MHC.OFFVIS ---
Intake Visit Reasons: 4m/PSA Intake Note: Patient is present for follow up Elevated PSA PSA: 2.61 Urology Medications: finasteride Antibiotic Allergy: None Blood Thinner: None Archeologist Classical Required: No Allergies No Known Allergies Allergy (Verified 02/20/24 14:04) Medication List - Last Reconciled 02/20/24 by ARASELI Means-SANJEEV albuterol sulfate 90 mcg/actuation 2 puffs inhalation Q6-8H PRN cholecalciferol (vitamin D3) 50 mcg PO DAILY famotidine 20 mg PO BEDTIME finasteride 5 mg PO DAILY 90 days fluticasone propion-salmeterol 250-50 mcg/dose (Wixela Inhub) 1 ea inhalation BID PRN losartan-hydrochlorothiazide 50-12.5 mg 1 tab PO DAILY omeprazole 40 mg PO DAILY 30 days rosuvastatin 10 mg PO DAILY HPI Comments Details: Oswaldo is a pleasant 78-year-old male patient of Dr. Kirkland who was accompanied by his daughter Lynette at today's telehealth visit. He has a past medical history of Alzheimer's disease, asthma, GERD, insomnia, osteoarthritis, sleep apnea, and vitamin-D deficiency. He is being followed up today for his history of hematuria as well as elevated PSA. In discussion with the patient and his daughter today he denies any bothersome urinary issues or concerns. He reports compliance with finasteride 5 mg daily. Recent PSA results reviewed with the patient and his daughter today as trended and noted below. Previous workup has included a in office cystoscopy for gross hematuria 02/06 which noted no suspicious bladder tumors or abnormalities. Cytology 12/07- few atypical urethral cells, Cytology 01/07- negative for high-grade urethral carcinoma, and Cytology from 07/09 negative for high-grade urethral carcinoma. Retroperitoneal ultrasound noting right kidney with no calculi, or hydronephrosis noted. There is an anechoic cyst in the mid pole measuring 1.4 x 1.7 x 1.4 cm. Left kidney with no lesions, calculi, or hydronephrosis noted. The bladder is well distended and normal. Bilateral ureteral jets are demonstrated. Prevoid bladder volume is 240 mL. Postvoid bladder volume is 41.4 mL. The prostate is enlarged. It measures approxitamtely [address] urogram was also performed previously noting no stones and or hydronephrosis, mild prostate enlargement, and 4 mm nodule at the left lung base. Patient was referred to pulmonology and is currently following up with Dr. Bustillos as planned. He otherwise denies any urinary issues or concerns at this time. He denies urinary urgency, urinary frequency, incontinence, nocturia, hematuria, dysuria, foul smelling urine, changes to urinary stream, flank pain, fever, and or chills. He is happy with his current voiding parameters. He denies having had any bouts of gross hematuria year.. PSAs are as follows: 01/07 6.9 12%, 06/09 2.4, 10/08 2.3, 03/10 2.6 PFSH Medical History Macular hole Pulmonary nodules Atelectasis Mild cognitive impairment Nodule of parotid gland Alzheimer disease Short-term memory loss Testicular hypofunction Lipoma Vitamin D deficiency Insomnia Osteoarthritis Impotence Asthma GERD (gastroesophageal reflux disease) Sleep apnea Surgical History No pertinent past surgical history Family History Father Stroke Social History Housing: Apartment Patient Tobacco Use Status: Never used Tobacco e-Cigarette/Vaping Use: Never Used Second Hand Smoke Exposure: No service: Yes Current occupational status: retired Cognitive needs: No Hearing needs: No Vision needs: No Review of Systems Const Reports as per HPI Eyes Reports no additional complaints ENT Reports no additional complaints Card Reports no additional complaints Resp Reports as per HPI GI Reports as per HPI Reports as per HPI Neuro Reports as per HPI Psych Reports as per HPI Endo Reports no additional complaints Physical Exam Const General: cooperative Orientation/consciousness: oriented to person Resp Effort & Inspection: able to speak in complete sentences Neuro General: oriented to person Psych Speech and movement: Clear speech present Affect: normal affect Attitude: cooperative Thought process: Normal thought process present Thought content: Normal thought content present Insight: Fair insight present (Psych) Judgement: Fair judgement present (Psych) Telehealth Telehealth Telehealth Platform: [facility] Location of provider rendering services: practice address Location of patient: address on file Patient Identification confirmed using: Name, : Yes Telehealth method: voice only Patient verbally consented to treatment: Yes Patient verbally consented to billing insurance company: Yes Patient informed of any privacy concerns related to visit: Yes Minutes spent on Phone/Video with Pt.: 15 Assessment & Plan Assessment & Plan (1) Bladder outlet obstruction: Code(s): N32.0 - Bladder-neck obstruction Category: Medical (2) Gross hematuria: Code(s): R31.0 - Gross hematuria Category: Medical (3) Elevated PSA: Code(s): R97.20 - Elevated prostate specific antigen [PSA] Category: Medical (4) Microscopic hematuria: Code(s): R31.29 - Other microscopic hematuria Category: Medical (5) Abnormal urine cytology: Code(s): R82.89 - Other abnormal findings on cytological and histological examination of urine Category: Medical Plan Recent PSA results reviewed with the patient today; as noted above. Continue finasteride 5 mg daily as discussed and prescribed. Discussed continuation of surveillance monitoring of PSA given minimal decrease in the last 4 months. He otherwise denies any bothersome urinary issues or concerns. He reports be happy with current voiding parameters. Will obtain PSA in 4 months. Discussed next follow-up in office to monitor urine cytology. Follow-up in 4 months with lab to be completed prior; or sooner with any issues, concerns, and or questions. Orders: Orders Prostate Specific Antigen 4 Months R97.20 - Elevated prostate specific antigen [PSA] Patient Instructions: The patient had an opportunity to ask questions regarding the treatment plan. All questions were answered. Physical exam, labs, and imaging were discussed and reviewed in detail. As well as risks, benefits, and discussion of treatment choices. No major barriers to understanding were identified. The patient expressed understanding and agreement with the above treatment plan. The patient was made aware they should contact our office by phone for worsening of their current condition, the appearance of new symptoms, or with any questions or concerns. Compliance is encouraged with any medications and follow up testing that is ordered. It is a privilege to be allowed the opportunity to participate in? your urological care.? Again, if you have any questions or concerns If you have any questions or concerns please do not hesitate to contact me. The office is [phone]. This note is constructed using voice recognition software. While every effort has been made to ensure accuracy engineering systems analyst errors may have been included. Yours sincerely, JOHNNY MeansP-BC Coding Level of Care Code Tele Est Pt Level 3 (88895) Diagnoses Bladder outlet obstruction N32.0 Gross hematuria R31.0 Elevated PSA R97.20 Microscopic hematuria R31.29 Abnormal urine cytology R82.89 Time Spent (min) 15
== END 2024-02-20 14:24 | disposition home or self-care (01) ==
LOC: HO.HUSH 13:40
PROVIDERS: PCP Nurse Practitioner Family; Visit Provider Nurse Practitioner Family
DX: N32.0 Bladder-neck obstruction (principal); R31.0 Gross hematuria; R97.20 Elevated prostate specific antigen [PSA]; R31.29 Other microscopic hematuria; R82.89 Other abnormal findings on cytological and histological examination of urine
CPT/HCPCS: 99213

== ENCOUNTER → 2024-02-20 13:39 | Outpatient (BNVA) | payer MEDICARE, SELFPAY | PROVIDERS: PCP Nurse Practitioner Family; Visit Provider Nurse Practitioner Family ==

== ENCOUNTER → 2024-03-14 09:05 | Outpatient (REF) | payer MEDICARE, SELFPAY | LOC: HO.SL 09:05 | PROVIDERS: PCP Nurse Practitioner Family; Visit Provider Nurse Practitioner Family | DX: G47.33 Obstructive sleep apnea (adult) (pediatric) (principal) | CPT/HCPCS: 95806 ==

== ENCOUNTER → 2024-03-14 09:17 | Outpatient (BNV) | payer MEDICARE, SELFPAY | PROVIDERS: PCP Nurse Practitioner Family; Visit Provider Psychiatry & Neurology Neurology | DX: G47.33 Obstructive sleep apnea (adult) (pediatric) (principal) | CPT/HCPCS: 95806 ==

== ENCOUNTER 2024-04-02 14:06 | Outpatient (AMB) | payer MEDICARE, SELFPAY ==
--- NOTE | 2024-04-02 14:30 | MHC.OFFVIS ---
Vital Signs 04/02/24 14:32 Height 5 ft 7 in Weight 217 lb BMI 34.0 BP 122/70 Blood Pressure Location Lt brachial Position Sitting Pulse 70 Pulse Source Pulse Oximeter Pulse Oximetry (%) 99 Oxygen Delivery Method Room Air Intake Visit Reasons: pulm nodules Director It Required: No Allergies No Known Allergies Allergy (Verified 04/02/24 14:36) HPI Comments Details: The patient is a 78-year-old gentleman who has no underlying respiratory issues and had a abnormal finding on an iimaging studies. Apparently the patient underwent a CT scan of the abdomen pelvis and was noted to have a small pulmonary nodule measuring 4 mm in size and is lower lung zones. The patient has not had any formal imaging studies of the chest however. Therefore is difficult to further address the pulmonary nodule in view of not being able to evaluate the whole lung parenchyma. The patient did also have a CT scan of the spine the cervical spine sometime in the spring that actually also demonstrated hypodensity, also measuring 4 mm on the parotid gland. This is something that may be have to be further evaluated as well. The patient currently is doing well from a respiratory status therefore we will hold off on any imaging studies. Will plan to do a formal CT scan of the chest to better address the pulmonary finding however. Once he does get the formal CT scan of the chest will review all the images together and make sure that this process is not progressing. 06/13/2023 the patient is here for a pulmonary follow-up visit. Overall the patient has been doing well. He denies any respiratory complaints. He did undergo a formal CT scan of the chest which we personally reviewed. Has not been officially been read yet. The patient has multiple pulmonary nodules in the largest nodule measuring 5-6 mm in size in the right hemithorax. In addition to that has numerous other nodules. More significant is the degree of atelectasis that he has in the right middle lobe area. Moderate severity. We did talk about ways to try to expand that right middle lobe. he is going to be provide an Acapella valve for CPT and also work on deep breathing exercises. Will plan to repeat the CT scan in 6 months to assess the degree of atelectasis. If the patient has atelectasis worsens or if he becomes symptomatic then an airway survey with bronchoscopy will be warranted. Otherwise regarding the pulmonary nodules that do not appear to be concerning in appearance. However, will require a 2 year follow-up altogether. In addition, the patient did have a cervical CT scan that we had discussed before that appeared to have a 4 mm hypodensity nodular density in the parotid gland. He will be following up with his primary care doctor soon so therefore they can discuss further evaluation for that during that visit. 12/19/2023 the patient is here for a pulmonary follow-up visit. Overall the patient has been doing well. Denies any underlying respiratory complaints. We did talk about trying to expand his atelectatic lung. Although he really did not use the Acapella valve. He did have a repeat CT scan of the chest which we personally reviewed and compared to his previous 1. his most recent CT scan has not been officially read. The largest nodule measuring 6 mm in size. I did compare the pulmonary nodules. Seems like the metoprolol pulmonary nodule slightly bigger in size. Still with well-circumscribed margins. There the nodular densities have been stable in size. Will have to wait for the final read on the CT scan. Based on the increased size of the nodular density will likely have to repeat the CT scan and treated 6 months. The patient does have a rescue inhaler. He has not had to use it. We did talk about increasing his exercise activity since he still has the atelectasis of the right middle lobe area. He is going to start walking more regularly and working on deep breathing exercises. 04/02/2024 the patient is here for a pulmonary follow-up visit. Overall he is doing well. Continues to have dyspnea on exertion. [id number] severity. Also has gained some weight. We did talk about the importance of exercise and weight management. The patient is motivated and will start walking soon. We did talk about different breathing exercises as well. The patient will do well with an Acapella valve to cleaning mucus secretions. We did review his CT scan of the chest that he had back in 12/05/2023 demonstrating pulmonary nodules. Will go ahead and plan to repeat the CT scan in 12/04/2024 around that area to make sure that the nodules are stable. [facility] Medical History Macular hole Pulmonary nodules Atelectasis Mild cognitive impairment Nodule of parotid gland Alzheimer disease Short-term memory loss Testicular hypofunction Lipoma Vitamin D deficiency Insomnia Osteoarthritis Impotence Asthma GERD (gastroesophageal reflux disease) Sleep apnea Surgical History No pertinent past surgical history Family History Father Stroke Social History Housing: Apartment Patient Tobacco Use Status: Never used Tobacco e-Cigarette/Vaping Use: Never Used Second Hand Smoke Exposure: No service: Yes Current occupational status: retired Cognitive needs: No Hearing needs: No Vision needs: No Review of Systems Const Denies chills and Denies fever(s) ENT Reports no additional complaints Card Reports no additional complaints and Denies syncope Resp Denies cough and Denies wheezing GI Denies abdominal pain and Denies heartburn Skin/Breast Denies rash Neuro Denies syncope Carlos/Lymph Denies lymphadenopathy Aller/Immun Denies wheezing Physical Exam Vital Signs: Last Vital Signs Pulse 70 04/02/24 14:32 BP 122/70 04/02/24 14:32 Pulse Ox 99 04/02/24 14:32 Oxygen Delivery Method Room Air 04/02/24 14:32 BMI result Body Mass Index 34.0 Const General: comfortable HEENT Head: Yes normocephalic Eyes General: appearance normal, both eyes and all related structures Neck Neck: Yes supple Chest Chest palpation & inspection: normal inspection of the chest Resp Effort & Inspection: normal respiratory effort Auscultation: clear to auscultation bilaterally Cardio Rate: regular rate Rhythm: regular rhythm Heart sounds: S1 normal heart sound present and S2 normal heart sound present GI Palpation (GI): Soft to palpation Skin General skin exam: no rashes or lesions noted Extrem General: Yes no clubbing, cyanosis or edema Assessment & Plan Assessment & Plan (1) Atelectasis: Code(s): J98.11 - Atelectasis Category: Medical (2) Pulmonary nodules: Code(s): R91.8 - Other nonspecific abnormal finding of lung field Category: Medical Plan CPT with acapella valve and deep breathing exercises repeat CT chest in November 2024 LONA as needed and prior to exercise increase exercise activity F/U after CT chest Orders: Orders CT chest wo IV con 11/06/24 R91.1 - Solitary pulmonary nodule Medications: New albuterol sulfate 90 mcg/actuation 2 inhalations inhalation Q6H 30 days PRN 18 grams 12RF shortness of breath or wheezing J44.9 - Chronic obstructive pulmonary disease, unspecified Coding Level of Care Code Est Pt Level 4 (42029) Diagnoses Atelectasis J98.11 Pulmonary nodules R91.8 Time Spent (min) 17
[2024-04-02 14:32] VITALS: BP 122/70; PULSE 70; O2SAT 99; BMI 34.0
== END 2024-04-02 14:56 | disposition home or self-care (01) ==
PROVIDERS: PCP Nurse Practitioner Family; Visit Provider Hospitalist
DX: J98.11 Atelectasis (principal); R91.8 Other nonspecific abnormal finding of lung field
CPT/HCPCS: 99214

== ENCOUNTER → 2024-04-02 14:06 | Outpatient (BNVA) | payer MEDICARE, SELFPAY | PROVIDERS: PCP Nurse Practitioner Family; Visit Provider Hospitalist | DX: J44.9 Chronic obstructive pulmonary disease, unspecified (principal); J98.11 Atelectasis; R91.8 Other nonspecific abnormal finding of lung field; Z79.899 Other long term (current) drug therapy | CPT/HCPCS: 99212 ==

== ENCOUNTER 2024-05-08 12:36 | Outpatient (REF) | payer MEDICARE, SELFPAY | END 2024-05-08 12:37 | disposition home or self-care (01) | LOC: HO.HMGCX 12:36 | PROVIDERS: PCP Nurse Practitioner Family; Visit Provider Nurse Practitioner Family | DX: R59.0 Localized enlarged lymph nodes (principal) | CPT/HCPCS: 76536 ==

== ENCOUNTER 2024-05-28 12:13 | Outpatient (AMB) | payer MEDICARE, SELFPAY ==
--- NOTE | 2024-05-28 12:28 | MHC.PC.OV ---
Vital Signs 05/28/24 12:29 Height 5 ft 7 in Weight 215 lb 4 oz BMI 33.7 BP 120/70 Blood Pressure Location Rt brachial Position Sitting Pulse 74 Pulse Source Pulse Oximeter Pulse Oximetry (%) 96 Intake Visit Reasons: 5 mon f/u Intake Note: pt is here for 5 month follow up Rehabilitation Counselor Required: No Allergies No Known Allergies Allergy (Verified 05/28/24 12:29) Tobacco use date assessed: 12/21/23 Fall risk assessment: No Falls in past year Last assessed Fall Risk: 05/28/24 Dental Screening Dental Screen Date: 12/21/23 HPI 5 mon f/u HPI Details Pt c/o ongoing GERD/nausea. Pt does not have excessive burping and symptoms are not related to ingestion. He reports taking omeprazole and earl-seltzer (for years) which does not help much. Will refer to GI and order labs. Denies fever, chills, diarrhea, vomiting, and dizziness. [facility] Medical History (Updated 05/28/24 @ 17:19 by Abdifatah Reyes, [facility]) Macular hole Pulmonary nodules Atelectasis Mild cognitive impairment Nodule of parotid gland Alzheimer disease Short-term memory loss Testicular hypofunction Lipoma Vitamin D deficiency Insomnia Osteoarthritis Impotence Asthma GERD (gastroesophageal reflux disease) Sleep apnea Surgical History No pertinent past surgical history Family History Father Stroke Social History Housing: Apartment Patient Tobacco Use Status: Never used Tobacco e-Cigarette/Vaping Use: Never Used Second Hand Smoke Exposure: No service: Yes Current occupational status: retired Cognitive needs: No Hearing needs: No Vision needs: No Questionnaire PHQ-9 Over the last 2 weeks, how often have you been bothered by any of the following problems? 1. Little interest or pleasure in doing things: not at all 2. Feeling down, depressed, or hopeless: not at all 3. Trouble falling or staying asleep, or sleeping too much: not at all 4. Feeling tired or having little energy: not at all 5. Poor appetite or overeating: not at all 6. Feeling bad about yourself - or that you are a failure or have let yourself or your family down: not at all 7. Trouble concentrating on things, such as reading the newspaper or watching television: not at all 8. Moving or speaking so slowly that other people could have noticed. Or the opposite - being so fidgety or restless that you have been moving around a lot more than usual: not at all 9. Thoughts that you would be better off or of hurting yourself in some way: not at all Total score: 0 Depression Screening Interpretation: Negative Depression Screening Done: Yes 32206 - PHQ-9 Billing: Yes Source: Developed by Drs. Karthik Espinosa, Ginger Carpio, Augusto Arellano and colleagues, with an educational breanna from [employer]. Thrive Questionnaire Date Thrive assessed: 05/28/24 I am a: Patient What is your living situation today?: I have a steady place to live Within the past 12 months, did the food you bought not last and you didn't have the money to get more?: Never true Within the past 12 months, did you worry whether your food would run out before you got money to buy more?: Never true Do you have trouble paying for medicines?: No Do you have trouble getting transportation to medical appointments?: No Do you have trouble paying your heating and electricity bill?: No Do you have trouble taking care of your child, family member or friend?: No Do you have trouble with day-to-day activities such as bathing, preparing meals, shopping, managing finances, etc.?: No Are you currently unemployed and looking for a job?: No Are you interested in more education?: No Please select the resources that you would like help with: None Currently or been in a relationship where the following occur: No concerns reported THRIVE Score: 0 AUDIT C Alcohol Use Questionnaire (AUDIT-C) 1. How often do you have a drink containing alcohol?: Never 2. How many drinks containing alcohol do you have on a typical day when you are drinking?: 1 or 2 3. How often do you have six or more drinks on one occasion?: Never Total Score: 0 Score Reviewed/Action Taken: Yes TRINIDAD-7 AMB Questionnaire TRINIDAD-7 Date TRINIDAD - 7 assessed: 05/28/24 Feeling nervous, anxious, or on edge: 0 = Not at all Not being able to stop or control worryin = Not at all Worrying too much about different things: 0 = Not at all Trouble relaxin = Not at all Being so restless that it is hard to sit still: 0 = Not at all Becoming easily annoyed or irritable: 0 = Not at all Feeling afraid as if something awful might happen: 0 = Not at all Total TRINIDAD-7 score (0-4 normal; 5-9 mild; 10-14 moderate; 15-21 severe): 0 Source: Developed by Drs. Karthik Espinosa, Ginger Carpio, Augusto Arellano and colleagues, with an educational breanna from [employer]. TRINIDAD-7 Assessment Billing TRINIDAD-7 Assessment Tool: TRINIDAD-7 Assessment 63985 Review of Systems Const Reports as per HPI Physical exam (Primary Care) Vital Signs: Last Vital Signs Pulse 74 05/28/24 12:29 BP 120/70 05/28/24 12:29 Pulse Ox 96 05/28/24 12:29 BMI result Body Mass Index 33.7 Tobacco/Smoking Status: Tobacco use Status Tobacco use date assessed 12/21/23 05/28/24 12:28 Patient Tobacco Use Status Never used Tobacco 05/28/24 12:28 e-Cigarette/Vaping Use Never Used 05/28/24 12:28 PHQ-9: PHQ-9 Score PHQ-9: Total score 0 05/28/24 13:02 Depression Screening Interpretation: Negative Thrive Assessment: Date of Thrive Assessment Date Thrive assessed 05/28/24 05/28/24 12:30 Currently or been in a relationship where the following occur: No concerns reported Const General: cooperative Nutritional Appearance: obese Orientation/consciousness: patient oriented x3 Resp Effort & Inspection: normal respiratory effort Auscultation: clear to auscultation bilaterally Cardio Rate: regular rate Rhythm: regular rhythm Heart sounds: S1 normal heart sound present and S2 normal heart sound present Neuro General: patient oriented x3 Psych Appearance: grossly normal Mental Status: mental status grossly normal Speech and movement: Normal speech and movement present Affect: normal affect Attitude: cooperative Thought process: Normal thought process present Thought content: Normal thought content present Insight: Good insight present (Psych) Judgement: Good judgement present (Psych) Coding Level of Care Code Est Pt Level 3 (05957) Diagnoses GERD (gastroesophageal reflux disease) K21.9 Nausea R11.0 Additional Codes TRINIDAD-7 Assessment Billing - TRINIDAD-7 Assessment Tool: TRINIDAD-7 Assessment 42597 ([id number]) PHQ-9 - 01606 - PHQ-9 Billing: Yes ([id number]) Assessment & Plan Assessment & Plan (1) GERD (gastroesophageal reflux disease): Code(s): K21.9 - Gastro-esophageal reflux disease without esophagitis Category: Medical Plan: Referred to GI, labs ordered (2) Nausea: Code(s): R11.0 - Nausea Category: Medical Plan: referral to GI for possible endo Plan The patient agreed to the use of a medical typist for this encounter. Scribed for DANN Vasquez by Janice Cifuentes medical typist, on 05/28/2024 at 12:55 EST. Orders: Orders TSH reflex Free T4 Today K21.9 - Gastro-esophageal reflux disease without esophagitis Complete Blood Count Auto Diff Today K21.9 - Gastro-esophageal reflux disease without esophagitis Comprehensive [place]. Panel Fast Today K21.9 - Gastro-esophageal reflux disease without esophagitis UA CC w/rflx Micro + Cult Today K21.9 - Gastro-esophageal reflux disease without esophagitis Lipid Panel Today K21.9 - Gastro-esophageal reflux disease without esophagitis Referrals Gastroenterology Referral K21.9 - Gastro-esophageal reflux disease without esophagitis
[2024-05-28 12:29] VITALS: BP 120/70; PULSE 74; O2SAT 96; BMI 33.7
== END 2024-05-28 13:22 | disposition home or self-care (01) ==
PROVIDERS: PCP Nurse Practitioner Family; Visit Provider Nurse Practitioner Family
DX: K21.9 Gastro-esophageal reflux disease without esophagitis (principal); R11.0 Nausea

== ENCOUNTER → 2024-05-28 12:13 | Outpatient (BNVA) | payer MEDICARE, SELFPAY | PROVIDERS: PCP Nurse Practitioner Family; Visit Provider Nurse Practitioner Family | DX: K21.9 Gastro-esophageal reflux disease without esophagitis (principal); R11.0 Nausea | CPT/HCPCS: 96127; 99212 ==

== ENCOUNTER 2024-06-18 10:13 | Outpatient (REF) | payer MEDICARE, SELFPAY ==
[2024-06-18 13:19] LABS: MANUAL DIFF FLAG NO
[2024-06-18 13:29] LABS: Basophils Percent Auto 0.4 % (0-2); Eosinophils Absolute Auto 0.2 X10*3/uL (0.0-0.4); Eosinophils Percent Auto 2.2 % (0-4); Hematocrit 43.6 % (42.0-52.0); Hemoglobin 14.9 g/dl (14.0-18.0); Imm Gran Abs Auto 0.02 X10*3/uL (0.00-0.03); Imm Gran Pct Auto 0.3 % (0.0-0.4); Lymphocytes Absolute Auto 1.3 X10*3/uL (1.2-4.9); Lymphocytes Percent Auto 16.9 % (20-40); Mean Corpuscular HGB Conc 34.2 g/dl (31.0-36.0); Mean Corpuscular Hemoglobin 32.5 pg (27.0-33.0); Mean Corpuscular Volume 95.2 fL (80.0-98.0); Mean Platelet Volume 9.5 fL (9.4-12.4); Monocytes Absolute Auto 0.6 X10*3/uL (0.1-1.2); Monocytes Percent Auto 7.8 % (2-11); Neutrophils Absolute Auto 5.6 x10*3/uL (2.0-8.3); Neutrophils Percent Auto 72.4 % (45-73); Platelet Count 291 X10*3/uL (160-400); Red Blood Count 4.58 X10*6/uL (4.60-5.80); Red Cell Distribution Width 12.7 % (11.0-16.0); White Blood Count 7.7 X10*3/uL (4.8-10.8)
[2024-06-18 13:56] LABS: Appearance Urine Clear; Color Urine Yellow; Glucose Urine UA Negative (Negative); Leukocyte Esterase Urine Negative (Negative); Nitrite Urine Negative (Negative); PH 6.5 (5.0-9.0); UMIC TRIGGER UACC YES; Urine Blood Trace (Negative); Urine Ketones Negative (Negative); Urine Protein Negative (Neg-Trace)
[2024-06-18 13:59] LABS: Bacteria Urine None Seen (None Seen); Hyaline Casts Urine 0-2 /LPF (0-2); Squamous Epithelial Cell Urine 0-2 /HPF (0-2); WBC Urine 0-5 /HPF (0-5)
[2024-06-18 14:16] LABS: Alanine Aminotransferase 29 U/L (0-40); Albumin Level 4.8 g/dL (3.5-5.0); Alkaline Phosphatase 96 U/L (39-117); Anion Gap 12 (12-20); Aspartate Amino Transferase 29 U/L (5-37); Bilirubin Total 0.8 mg/dL (0.0-1.0); Blood Urea Nitrogen 12 mg/dL (9-16); Calcium 9.9 mg/dL (8.4-10.2); Carbon Dioxide 27 mmol/L (22-29); Chloride 100 mmol/L (96-108); Cholesterol 150 mg/dL (<200); Estimated Glomerular Filt Rate > 60; Glucose Fasting 112 mg/dL (60-99); HDL Cholesterol 46 mg/dL (>40); LDL Cholesterol Calculated 82 mg/dL (<100); Potassium 3.9 mmol/L (3.3-5.1); Sodium 135 mmol/L (135-145); Total Protein 7.6 g/dL (6.5-8.0); Triglycerides 112 mg/dL (<150)
[2024-06-18 14:26] LABS: Prostate Specific Antigen 2.69 ng/mL (<0.05-4.0)
== END 2024-06-18 10:14 | disposition home or self-care (01) ==
LOC: HO.HMGCLDS 10:13
PROVIDERS: Nurse Practitioner Family; PCP Nurse Practitioner Family; Visit Provider Nurse Practitioner Family
DX: K21.9 Gastro-esophageal reflux disease without esophagitis (principal); R97.20 Elevated prostate specific antigen [PSA]; Z12.5 Encounter for screening for malignant neoplasm of prostate
CPT/HCPCS: 36415; 80053; 80061; 81001; 84153; 84443; 85025

== ENCOUNTER 2024-06-25 13:37 | Outpatient (AMB) | payer MEDICARE, SELFPAY ==
--- NOTE | 2024-06-25 13:39 | A.OFFVIS_ITS ---
Intake Visit Reasons: 4m/PSA(pending) Intake Note: Patient is present for 4M/PSA Urology Medication:FINASTERIDE Antibiotic Allergy:NONE Blood Thinner:NONE Dental [employer]alg[employer] Processor Required: No Allergies No Known Allergies Allergy (Verified 06/25/24 15:07) Medication List - Last Reconciled 06/25/24 by ARASELI Means-SANJEEV albuterol sulfate 90 mcg/actuation 2 puffs inhalation Q6-8H PRN albuterol sulfate 90 mcg/actuation 2 inhalations inhalation Q6H PRN 30 days cholecalciferol (vitamin D3) 50 mcg PO DAILY famotidine 20 mg PO BEDTIME finasteride 5 mg PO DAILY 90 days fluticasone propion-salmeterol 250-50 mcg/dose (Wixela Inhub) 1 ea inhalation BID PRN losartan-hydrochlorothiazide 50-12.5 mg 1 tab PO DAILY omeprazole 40 mg PO DAILY rosuvastatin 10 mg PO DAILY HPI Comments Details: Oswaldo is a pleasant 79-year-old male patient of Dr. Kirkland who was accompanied by his daughter Lynette and at today's office visit. He has a past medical history of Alzheimer's disease, asthma, GERD, insomnia, osteoarthritis, sleep apnea, and vitamin-D deficiency. He presents to the office today for follow-up of his hematuria and elevated PSA. In discussion with the patient today he denies any bothersome urinary issues or concerns. He reports compliance with 5 mg of finasteride daily. Recent PSA results reviewed with the patient and his family today as noted and trended below. Previous workup has included a in office cystoscopy for gross hematuria 02/06 which noted no suspicious bladder tumors or abnormalities. Cytology 12/07- few atypical urethral cells, Cytology 01/07- negative for high-grade urethral carcinoma, and Cytology from 07/09 negative for high-grade urethral carcinoma. Retroperitoneal ultrasound 12/07 noting right kidney with no calculi, or hydronephrosis noted. There is an anechoic cyst in the mid pole measuring 1.4 x 1.7 x 1.4 cm. Left kidney with no lesions, calculi, or hydronephrosis noted. The bladder is well distended and normal. Bilateral ureteral jets are demonstrated. Prevoid bladder volume is 240 mL. Postvoid bladder volume is 41.4 mL. The prostate is enlarged. It measures approxitamtely [address] urogram 02/06 was also performed previously noting no stones and or hydronephrosis, mild prostate enlargement, and 4 mm nodule at the left lung base. Patient was referred to pulmonology and is currently following up with Dr. Bustillos as planned. He otherwise denies any urinary issues or concerns at this time. He denies urinary urgency, urinary frequency, incontinence, nocturia, hematuria, dysuria, foul smelling urine, changes to urinary stream, flank pain, fever, and or chills. He is happy with his current voiding parameters. He denies having had any bouts of gross hematuri a year.. PSAs are as follows: 01/07 6.9 12%, 06/09 2.4, 10/08 2.3, 03/10 2.6, 07/10 2.7 PFSH Medical History Macular hole Pulmonary nodules Atelectasis Mild cognitive impairment Nodule of parotid gland Alzheimer disease Short-term memory loss Testicular hypofunction Lipoma Vitamin D deficiency Insomnia Osteoarthritis Impotence Asthma GERD (gastroesophageal reflux disease) Sleep apnea Surgical History No pertinent past surgical history Family History Father Stroke Social History Housing: Apartment Patient Tobacco Use Status: Never used Tobacco e-Cigarette/Vaping Use: Never Used Second Hand Smoke Exposure: No service: Yes Current occupational status: retired Cognitive needs: No Hearing needs: No Vision needs: No Review of Systems Const Reports as per HPI Eyes Reports no additional complaints ENT Reports no additional complaints Card Reports no additional complaints Resp Reports as per HPI GI Reports as per HPI Reports as per HPI Neuro Reports as per HPI Psych Reports as per HPI Endo Reports no additional complaints Physical Exam Const General: cooperative, healthy appearing, comfortable, no acute distress, well developed, alert and awake Nutritional Appearance: overweight Orientation/consciousness: oriented to person Limitations: no limitations HEENT Head: Yes normal to inspection, Yes normocephalic and Yes atraumatic Ears: hearing grossly normal bilaterally Eyes General: appearance normal, both eyes and all related structures Neck Neck: Yes normal visual inspection and Yes trachea midline Chest Chest palpation & inspection: normal inspection of the chest Resp Effort & Inspection: normal respiratory effort and able to speak in complete sentences Cardio Rate: regular rate GI Inspection: Yes normal to inspection General: Yes no CVA tenderness Back/Spine/Pelvis Back: no CVA tenderness Skin General skin exam: no rashes or lesions noted Neuro General: oriented to person Extrem General: Yes normal to inspection Psych Appearance: grossly normal and well kempt Mental Status: mental status grossly normal Speech and movement: Normal speech and movement present and Clear speech present Affect: normal affect Attitude: cooperative Thought process: Normal thought process present Thought content: Normal thought content present Insight: Limited insight present (Psych) Judgement: Limited judgement present (Psych) Results AMB Urinalysis, Automated UA Leukoctes 0 Lata/uL Last Edit by AVERY Martinez on 06/25/24 13:56 UA Nitrite Negative Last Edit by AVERY Martinez on 06/25/24 13:56 UA Urobilinogen 0.2 mg/dL Last Edit by AVERY Martinez on 06/25/24 13:5 6 UA Protein 0 mg/dL Last Edit by AVERY Martinez on 06/25/24 13:56 UA pH 6.0 Last Edit by AVERY Martinez on 06/25/24 13:56 UA Blood 10 [place]/uL Last Edit by AVERY Martinez on 06/25/24 13:56 UA Specific [place] 1.010 Last Edit by AVERY Martinez on 06/25/24 13: 56 UA Ketone Negative Last Edit by AVERY Martinez on 06/25/24 13:56 UA Bilirubin 0 mg/dL Last Edit by AVERY Martinez on 06/25/24 13:56 UA Glucose 0 mg/dL Last Edit by AVERY Martinez on 06/25/24 13:56 Results Reviewed Results Reviewed: Laboratory Last Values Urine pH (Auto) 6.0 06/25/24 13:55 Specific [place] (Auto) 1.010 06/25/24 13:55 Urine Protein (Auto) 0 mg/dL 06/25/24 13:55 Glucose (UA)(Auto) 0 mg/dL 06/25/24 13:55 Urine Ketones (Auto) Negative 06/25/24 13:55 Urine Blood (Auto) 10 [place]/uL 06/25/24 13:55 Urine Nitrite (Auto) Negative 06/25/24 13:55 Urine Bilirubin (Auto) 0 mg/dL 06/25/24 13:55 Urine Urobilinogen (Auto) 0.2 mg/dL 06/25/24 13:55 Leukocyte Esterase (Auto) 0 [place]/uL 06/25/24 13:55 Assessment & Plan Assessment & Plan (1) Bladder outlet obstruction: Code(s): N32.0 - Bladder-neck obstruction Category: Medical (2) Gross hematuria: Code(s): R31.0 - Gross hematuria Category: Medical (3) Elevated PSA: Code(s): R97.20 - Elevated prostate specific antigen [PSA] Category: Medical (4) Microscopic hematuria: Code(s): R31.29 - Other microscopic hematuria Category: Medical (5) Abnormal urine cytology: Code(s): R82.89 - Other abnormal findings on cytological and histological examination of urine Category: Medical Plan In office urinalysis results reviewed with the patient today; as noted above; will send for urine cytology Recent PSA results reviewed with the patient today; as noted above. Continue finasteride 5 mg daily as discussed and prescribed. Discussed continuation of surveillance monitoring of PSA given minimal decrease in the last 4 months. He otherwise denies any bothersome urinary issues or concerns. He reports be happy with current voiding parameters. Will obtain PSA in 4 months. Discussed next follow-up in office to monitor urine cytology. Follow-up in 4 months with lab to be completed prior; or sooner with any issues, concerns, and or questions. Orders: Orders AMB Urinalysis Automated Today Z13.9 - Encounter for screening, unspecified Prostate Specific Antigen 4 Months R97.20 - Elevated prostate specific antigen [PSA] Urine Cytology Today R31.29 - Other microscopic hematuria Medications: Refilled finasteride 5 mg PO DAILY 90 days 90 tabs 2RF R97.20 - Elevated prostate specific antigen [PSA] Patient Instructions: The patient had an opportunity to ask questions regarding the treatment plan. All questions were answered. Physical exam, labs, and imaging were discussed and reviewed in detail. As well as risks, benefits, and discussion of treatment choices. No major barriers to understanding were identified. The patient expressed understanding and agreement with the above treatment plan. The patient was made aware they should contact our office by phone for worsening of their current condition, the appearance of new symptoms, or with any questions or concerns. Compliance is encouraged with any medications and follow up testing that is ordered. It is a privilege to be allowed the opportunity to participate in? your urological care.? Again, if you have any questions or concerns If you have any questions or concerns please do not hesitate to contact me. The office is [phone]. This note is constructed using voice recognition software. While every effort has been made to ensure accuracy industrial court magistrate errors may have been included. Yours sincerely, DANN Means Coding Level of Care Code Est Pt Level 3 (58410) Complex EM visit Add On G2211 Diagnoses Bladder outlet obstruction N32.0 Gross hematuria R31.0 Elevated PSA R97.20 Microscopic hematuria R31.29 Abnormal urine cytology R82.89
--- OUTSIDE RECORDS SUMMARY | 2024-06-27 15:48 | XMS_ITS | Continuity of Care Document ---
Author Organization [facility] Address [address] [place] [address] Phone Care Team Providers Care Land Development Project Manager Name Role Phone Derian Chavez OD Unavailable [...] on Encounter [facility], [address] [place], [place], [id number] , [place] [phone] [facility] Foreign body sensation (chief complaint) Ocular pain, right eyePunctate keratitis, right eye Sep-2 0 [facility] Menard. [address] [place], [place], [id number] , . tel: [phone] Referring Provider: Derian Engle, [address] [place] [address], [id number] . tel:[phone] [facility], [address] [place], [place], [id number] , [place] tel: [phone] TEA [place] lattice (chief complaint) Unspecified chorioretinal scars, right eyeVitreomacular adhesion, left eyeVitreous degeneration, right eyeSerous detachment of retinal pigment epitheliumPuckering of macula, bilateral Aug- 0 [facility]. [address] [place] [address], [id number] , [place]. tel:[phone] Referring Provider: Sotero Diaz, [address] [place] [address], [id number] . tel:[phone] [facility], [address] [place] [address], [id number] , [place] tel: [phone] TEA [place] PO other (chief complaint) Round hole, right eyeHorseshoe tear of retina without detachment, right eyeLattice degeneration of retina, right eye Nov- 9 [facility]. [address] [place] [address], [id number] , [place]. tel: [phone] Referring Provider: Stoero Diaz, [address] [place] [address], [address] . tel:[phone] [facility], [address] [place], [place], [id number] , [place] tel: [phone] TEA [place] Retinal Tear (chief complaint) Horseshoe tear of retina without detachment, right eyeRound hole, right eyeLattice degeneration of retina, right eye Oct-3 0- 9 [facility]. [facility] [place], [place], [id number] , [place]. tel: [phone] Referring Provider: Derian Engle, [address] [place], [address] . tel:[phone] [facility], [address] [place] [address], [id number] , tel: [phone] TEA [place] floaters (chief complaint) Horseshoe tear of retina without detachment, right eyeLattice degeneration of retina, right eyeRound hole, right eyeVitreous degeneration, right eyeVitreomacular adhesion, left eyeSerous detachment of retinal pigment epithelium Oct-1 9 [facility]. [address] [place] [address], [id number] , [place]. tel: [phone] Referring Provider: Sotero Diaz, [address] [place] [address], [id number] . tel:[phone] [facility], [address] [place] [address], [id number] , [place] tel: [phone] TEA [place] [address] Foreign body sensation (chief complaint) Vitreous degeneration, right eyeLattice degeneration of retina, right eyeHorseshoe tear of retina without detachment, right eye Oct-1 9 [facility] Menard. [address] [place] [address], [id number] , . tel: [phone] Referring Provider: Derian Engle, [address] [place] [address], [id number] . tel:[phone] Family History Family Member Type Diagnosis Age [...] Future Order: Radiology Order OC T Macula ([id number]), Collected on: Ordered Future Order: Radiology Order Be rosales Vera (Z-BEE-LIST), Sent on: Sent Future Order: Radiology Order OC T Macula ([id number]), Collected on: Ordered History Of Present Illness [...]
--- OUTSIDE RECORDS SUMMARY | 2024-06-27 15:48 | XMS_ITS ---
[facility] Name [facility] Unknown History of Medication Use Medication Directions Dispensed Refills Start Date End Date Stat Memantine Hydrochloride 5mg Tablet 06/18/2023 active Finasteride 5mg Tablet 06/18/2023 active Losartan 50 mg 06/18/2023 active Rosuvastatin Calcium 10mg Tablet 06/18/2023 active Problems Problem Status Onset Date Problem Type Date of Resolution Source Osteoarthritis of ankle active 2023-04-04 ProblemAct ENS_PODCRCT Heel pain active 2023-04-04 ProblemAct ENS_PODC RCT Tinea unguium, onychomycosis active 2022-09-13 ProblemAct ENS_PODCRCT Pain in right foot active 2023-06-15 EncounterDiagnosisAc t ENS_PODCRCT Osteoarthritis of ankle active 2023-04-04 ProblemAct ENS_PODCRCT Tendonitis of right ankle active 2023-04-04 ProblemAct ENS_PODCRCT Hallux valgus, right foot active 2023-06-15 ProblemAct ENS_PODCRCT Tendonitis of left ankle active 2023-04-04 ProblemAct ENS_PODCRCT
== END 2024-06-25 14:22 | disposition home or self-care (01) ==
PROVIDERS: PCP Nurse Practitioner Family; Visit Provider Nurse Practitioner Family
DX: N32.0 Bladder-neck obstruction (principal); R31.0 Gross hematuria; R97.20 Elevated prostate specific antigen [PSA]; R31.29 Other microscopic hematuria; R82.89 Other abnormal findings on cytological and histological examination of urine; Z13.9 Encounter for screening, unspecified
CPT/HCPCS: 99213; G2211

== ENCOUNTER 2024-06-25 13:37 | Outpatient (REF) | payer MEDICARE, SELFPAY ==
[2024-06-25 16:54] LABS: Urine Cytology See Pathology rpt
--- OUTSIDE RECORDS SUMMARY | 2024-06-27 16:19 | XMS_ITS | Continuity of Care Document ---
Author Organization [facility] Address [address] [facility] [place] [address] Phone Care Team Providers Care And Drying Supervisor Cooking Casing Name Role Phone Derian Chavez OD Unavailable [...] on Encounter [facility], [address] [place], [place], [id number] , [place] [phone] [facility] Foreign body sensation (chief complaint) Ocular pain, right eyePunctate keratitis, right eye Sep-2 0 Scott Menard. [address] [place], [place], [id number] , . tel: [phone] Referring Provider: Derian Engle, [address] [place] [address], [id number] . tel:[phone] [facility], [address] [place], [place], [id number] , [place] tel: [phone] TEA [place] lattice (chief complaint) Unspecified chorioretinal scars, right eyeVitreomacular adhesion, left eyeVitreous degeneration, right eyeSerous detachment of retinal pigment epitheliumPuckering of macula, bilateral Aug- 0 [facility]. [address] [place] [address], [id number] , [place]. tel:[phone] Referring Provider: Sotero Diaz, [address] [place] [address], [id number] . tel:[phone] [facility], [address] [place] [address], [id number] , [place] tel: [phone] TEA [place] PO other (chief complaint) Round hole, right eyeHorseshoe tear of retina without detachment, right eyeLattice degeneration of retina, right eye Nov- 9 [facility]. [address] [place] [address], [id number] , [place]. tel: [phone] Referring Provider: Sotero Diaz, [address] [place] [address], [id number] . tel:[phone] [facility], [address] [place], [place], [id number] , [place] tel: [phone] TEA [place] Retinal Tear (chief complaint) Horseshoe tear of retina without detachment, right eyeRound hole, right eyeLattice degeneration of retina, right eye Oct-3 0- 9 [facility]. [facility] [place], [place], [id number] , [place]. tel: [phone] Referring Provider: Derian Engle, [address] [place], [address] . tel:[phone] [facility], [address] [place] [address], [id number] , tel: [phone] TEA [place] floaters (chief complaint) Horseshoe tear of retina without detachment, right eyeLattice degeneration of retina, right eyeRound hole, right eyeVitreous degeneration, right eyeVitreomacular adhesion, left eyeSerous detachment of retinal pigment epithelium Oct-1 9 [facility]. [address] [place] [address], [id number] , [place]. tel: [phone] Referring Provider: Sotero Diaz, [address] [place] [address], [address] . tel:[phone] [facility], [address] [place] [address], [id number] , [place] tel: [phone] TEA [place] [address] Foreign body sensation (chief complaint) Vitreous degeneration, right eyeLattice degeneration of retina, right eyeHorseshoe tear of retina without detachment, right eye Oct-1 9 [facility] Menard. [address] [place] [address], [id number] , . tel: [phone] Referring Provider: Derian Engle, [address] [place] [address], [address] . tel:[phone] Family History Family Member Type Diagnosis Age At Onset No Information Immunizations Vaccine Date Status Comments Flu (split) (3 yrs or older) administered Source: Other Provider Payers Payer name Insurance type Covered republican ID Authoriza tion(s) No Information Social History [...] Future Order: Radiology Order OC T Macula ([id number]), Collected on: Ordered Future Order: Radiology Order Be rosales Vera (Z-BEE-LIST), Sent on: Sent Future Order: Radiology Order OC T Macula ([id number]), Collected on: Ordered History Of Present Illness [...]
== END 2024-06-25 13:38 | disposition home or self-care (01) ==
LOC: HO.LAB 13:37
PROVIDERS: PCP Nurse Practitioner Family; Visit Provider Nurse Practitioner Family
DX: J98.11 Atelectasis (principal); R31.29 Other microscopic hematuria; R91.8 Other nonspecific abnormal finding of lung field; G47.33 Obstructive sleep apnea (adult) (pediatric); N32.0 Bladder-neck obstruction; R31.0 Gross hematuria; R97.20 Elevated prostate specific antigen [PSA]; R82.89 Other abnormal findings on cytological and histological examination of urine
CPT/HCPCS: 81003; 88112; 99212

== ENCOUNTER 2024-06-25 15:12 | Outpatient (AMB) | payer MEDICARE, SELFPAY ==
[2024-06-25 15:18] VITALS: BP 119/78; PULSE 73; O2SAT 97; BMI 34.0
--- NOTE | 2024-06-25 15:18 | A.OFFVIS_ITS ---
Vital Signs 06/25/24 15:18 Height 5 ft 7 in Weight 217 lb 2.485 oz BMI 34.0 BP 119/78 Blood Pressure Location Lt brachial Position Sitting Pulse 73 Pulse Source Doppler Pulse Oximetry (%) 97 Oxygen Delivery Method Room Air Intake Visit Reasons: pulm nodules Allergies No Known Allergies Allergy (Verified 06/25/24 15:07) HPI Comments Details: The patient is a 79-year-old gentleman who has no underlying respiratory issues and had a abnormal finding on an iimaging studies. Apparently the patient underwent a CT scan of the abdomen pelvis and was noted to have a small pulmonary nodule measuring 4 mm in size and is lower lung zones. The patient has not had any formal imaging studies of the chest however. Therefore is difficult to further address the pulmonary nodule in view of not being able to evaluate the whole lung parenchyma. The patient did also have a CT scan of the spine the cervical spine sometime in the spring that actually also demonstrated hypodensity, also measuring 4 mm on the parotid gland. This is something that may be have to be further evaluated as well. The patient currently is doing w ell from a respiratory status therefore we will hold off on any imaging studies. Will plan to do a formal CT scan of the chest to better address the pulmonary finding however. Once he does get the formal CT scan of the chest will review all the images together and make sure that this process is not progressing. 06/13/2023 the patient is here for a pulmonary follow-up visit. Overall the patient has been doing well. He denies any respiratory complaints. He did undergo a formal CT scan of the chest which we personally reviewed. Has not been officially been read yet. The patient has multiple pulmonary nodules in the largest nodule measuring 5-6 mm in size in the right hemithorax. In addition to that has numerous other nodules. More significant is the degree of atelectasis that he has in the right middle lobe area. Moderate severity. We did talk about ways to try to expand that right middle lobe. he is going to be provide an Acapella valve for CPT and also work on deep breathing exercises. Will plan to repeat the CT scan in 6 months to assess the degree of atelectasis. If the patient has atelectasis worsens or if he becomes symptomatic then an airway survey with bronchoscopy will be warranted. Otherwise regarding the pulmonary nodules that do not appear to be concerning in appearance. However, will require a 2 year follow-up altogether. In addition, the patient did have a cervical CT scan that we had discussed before that appeared to have a 4 mm hypodensity nodular density in the parotid gland. He will be following up with his primary care doctor soon so therefore they can discuss further evaluation for that during that visit. 12/19/2023 the patient is here for a pulmonary follow-up visit. Overall the patient has been doing well. Denies any underlying respiratory complaints. We did talk about trying to expand his atelectatic lung. Although he really did not use the Acapella valve. He did have a repeat CT scan of the chest which we personally reviewed and compared to his previous 1. his most recent CT scan has not been officially read. The largest nodule measuring 6 mm in size. I did compare the pulmonary nodules. Seems like the metoprolol pulmonary nodule slightly bigger in size. Still with well-circumscribed margins. There the nodular densities have been stable in size. Will have to wait for the final read on the CT scan. Based on the increased size of the nodular density will likely have to repeat the CT scan and treated 6 months. The patient does have a rescue inhaler. He has not had to use it. We did talk about increasing his exercise activity since he still has the atelectasis of the right middle lobe area. He is going to start walking more regularly and working on deep breathing exercises. 04/02/2024 the patient is here for a pulmonary follow-up visit. Overall he is doing well. Continues to have dyspnea on exertion. [id number]-[id number] severity. Also has gained some weight. We did talk about the importance of exercise and weight management. The patient is motivated and will start walking soon. We did talk about different breathing exercises as well. The patient will do well with an Acapella valve to cleaning mucus secretions. We did review his CT scan of the chest that he had back in 12/05/2023 demonstrating pulmonary nodules. Will go ahead and plan to repeat the CT scan in 12/04/2024 around that area to make sure that the nodules are stable. 06/25/2024 the patient is here for pulmonary follow-up visit. Overall he is doing okay. Still having some dyspnea on exertion but mild in severity. He unfortunately is not very active and is not exercising regularly. In addition to that he has been struggling with CPAP. He does not tolerate the mask. I did provide him with a new F 40 mask that he could try specially since his last softer hopefully can tolerated better. We did again reviewed his sleep study demonstrating moderate sleep apnea with severe hypoxia. He understands that the hypoxia can lead to worsening dementia and also increase wrapped cardiovascular risk. Therefore he is willing to try during the daytime to get used to it and then start using it at nighttime. As far as the pulmonary nodules last CT scan demonstrating the nodules was back in 12/05/2023. Will go ahead and get a CT scan in 12/04/2024 will follow-up sometime after that. FORMERLY [facility], [facility] Medical History (Updated 06/25/24 @ 21:55 by Woody Bustillos MD) VIANEY on CPAP Macular hole Pulmonary nodules Atelectasis Mild cognitive impairment Nodule of parotid gland Alzheimer disease Short-term memory loss Testicular hypofunction Lipoma Vitamin D deficiency Insomnia Osteoarthritis Impotence Asthma GERD (gastroesophageal reflux disease) Sleep apnea Surgical History No pertinent past surgical history Family History Father Stroke Social History Housing: Apartment Patient Tobacco Use Status: Never used Tobacco e-Cigarette/Vaping Use: Never Used Second Hand Smoke Exposure: No service: Yes Current occupational status: retired Cognitive needs: No Hearing needs: No Vision needs: No Review of Systems Const Denies chills, Reports daytime sleepiness, Denies fever(s), Reports snoring and Reports stops breathing during sleep ENT Reports no additional complaints Card Reports no additional complaints, Denies syncope and Reports dyspnea on exertion Resp Denies cough, Reports dyspnea on exertion, Reports snoring and Denies wheezing GI Denies abdominal pain and Denies heartburn Skin/Breast Denies rash Neuro Denies syncope Carlos/Lymph Denies lymphadenopathy Aller/Immun Denies wheezing Physical Exam Vital Signs: Last Vital Signs Pulse 73 06/25/24 15:18 BP 119/78 06/25/24 15:18 Pulse Ox 97 06/25/24 15:18 Oxygen Delivery Method Room Air 06/25/24 15:18 BMI result Body Mass Index 34.0 Const General: comfortable HEENT Head: Yes normocephalic Eyes General: appearance normal, both eyes and all related structures Neck Neck: Yes supple Chest Chest palpation & inspection: normal inspection of the chest Resp Effort & Inspection: normal respiratory effort Auscultation: clear to auscultation bilaterally Cardio Rate: regular rate Rhythm: regular rhythm Heart sounds: S1 normal heart sound present and S2 normal heart sound present GI Palpation (GI): Soft to palpation Skin General skin exam: no rashes or lesions noted Extrem General: Yes no clubbing, cyanosis or edema Results AMB Urinalysis, Automated UA Leukoctes 0 Lata/uL Last Edit by AVERY Martinez on 06/25/24 13:56 UA Nitrite Negative Last Edit by AVERY Martinez on 06/25/24 13:56 UA Urobilinogen 0.2 mg/dL Last Edit by AVERY Martinez on 06/25/24 13:5 6 UA Protein 0 mg/dL Last Edit by AVERY Martinez on 06/25/24 13:56 UA pH 6.0 Last Edit by AVERY Martinez on 06/25/24 13:56 UA Blood 10 Brenton/uL Last Edit by AVERY Martinez on 06/25/24 13:56 UA Specific [place] 1.010 Last Edit by AVERY Martinez on 06/25/24 13: 56 UA Ketone Negative Last Edit by AVERY Martinez on 06/25/24 13:56 UA Bilirubin 0 mg/dL Last Edit by AVERY Martinez on 06/25/24 13:56 UA Glucose 0 mg/dL Last Edit by AVERY Martinez on 06/25/24 13:56 Telehealth Telehealth Patient Identification confirmed using: Name, : Yes Assessment & Plan Assessment & Plan (1) Atelectasis: Code(s): J98.11 - Atelectasis Category: Medical (2) Pulmonary nodules: Code(s): R91.8 - Other nonspecific abnormal finding of lung field Category: Medical (3) VIANEY on CPAP: Code(s): G47.33 - Obstructive sleep apnea (adult) (pediatric) Category: Medical Plan CPT with acapella valve and deep breathing exercises repeat CT chest in November 2024 LONA as needed and prior to exercise increase exercise activity restart APAP, trial F40 mask F/U 6 months Coding Level of Care Code Est Pt Level 4 (81619) Diagnoses Atelectasis J98.11 Pulmonary nodules R91.8 VIANEY on CPAP G47.33 Time Spent (min) 17
--- OUTSIDE RECORDS SUMMARY | 2024-06-27 16:19 | XMS_ITS | Continuity of Care Document ---
Author Organization [facility] Address [address] [facility] [address] Phone Care Team Providers Care Office Chair Assembler Name Role Phone Derian Chavez OD Unavailable [...] on Encounter [facility], [address] [place], [place], [id number] , [place] [phone] [facility] Foreign body sensation (chief complaint) Ocular pain, right eyePunctate keratitis, right eye Sep-2 0 Scott Menard. [address] [place], [place], [id number] , . tel: [phone] Referring Provider: Derian Engle, [address] [place] [address], [id number] . tel:[phone] [facility], [address] [place], [place], [id number] , [place] tel: [phone] TEA [place] lattice (chief complaint) Unspecified chorioretinal scars, right eyeVitreomacular adhesion, left eyeVitreous degeneration, right eyeSerous detachment of retinal pigment epitheliumPuckering of macula, bilateral Aug- 0 [facility]. [address] [place] [address], [id number] , [place]. tel:[phone] Referring Provider: Sotero Diaz, [address] [place] [address], [address] . tel:[phone] [facility], [address] [place] [address], [id number] , [place] tel: [phone] TEA [place] PO other (chief complaint) Round hole, right eyeHorseshoe tear of retina without detachment, right eyeLattice degeneration of retina, right eye Nov- 9 [facility]. [address] [place] [address], [id number] , [place]. tel: [phone] Referring Provider: Sotero Diaz, [address] [place] [address], [address] . tel:[phone] [facility], [address] [place], [place], [id number] , [place] tel: [phone] TEA [place] Retinal Tear (chief complaint) Horseshoe tear of retina without detachment, right eyeRound hole, right eyeLattice degeneration of retina, right eye Oct-3 0- 9 [facility]. [facility] [place], [place], [id number] , [place]. tel: [phone] Referring Provider: Derian Engle, [address] [place], [address] . tel:[phone] [facility], [address] [place] [address], [id number] , tel: [phone] TEA [place] floaters (chief complaint) Horseshoe tear of retina without detachment, right eyeLattice degeneration of retina, right eyeRound hole, right eyeVitreous degeneration, right eyeVitreomacular adhesion, left eyeSerous detachment of retinal pigment epithelium Oct-1 9 [facility]. [address] [place] [address], [id number] , [place]. tel: [phone] Referring Provider: Sotero Diaz, [address] [place] [address], [id number] . tel:[phone] [facility], [address] [place] [address], [id number] , [place] tel: [phone] TEA [place] [address] Foreign body sensation (chief complaint) Vitreous degeneration, right eyeLattice degeneration of retina, right eyeHorseshoe tear of retina without detachment, right eye Oct-1 9 Scott Menard. [address] [place] [address], [id number] , . tel: [phone] Referring Provider: Derian Engle, [address] [place] [address], [id number] . tel:[phone] Family History Family Member Type Diagnosis Age [...] Future Order: Radiology Order OC T Macula ([id number]), Collected on: Ordered Future Order: Radiology Order Be rosales Vera (Z-BEE-LIST), Sent on: Sent Future Order: Radiology Order OC T Macula ([id number]), Collected on: Ordered History Of Present Illness [...] Ocular pain, right eye Impression/Plan Related to Ocula r pain, right eye Impression/Plan Related to Punct ate keratitis, right eye 6 months RCE DIL OU OCT OU Relat ed to Unspecified chorioretinal scars, right eye Impression/Plan Related to Pucke ring of macula, bilateral Impression/Plan Related to Vitre ous degeneration, right eye Impression/Plan Related to Serou s detachment of retinal pigment epithelium Impression/Plan Related to Unspe cified chorioretinal scars, right eye Impression/Plan Related to Vitre omacular adhesion, left eye [address] Chapincito Braden for RFL OCT OU dil OU Related to Round hole, right eye Impression/Plan Related to Round hole, right eye Impression/Plan Related to Horse shoe tear of retina without detachment, right eye Impression/Plan Related to Latti ce degeneration of retina, right eye 2 weeks PO DIL OD Related to Hor seshoe tear of retina without detachment, right eye Impression/Plan Related to Round hole, right eye Impression/Plan Related to Horse shoe tear of retina without detachment, right eye Apr- NA with Dr. Craig or Dr. Diaz for retinal tear OD. 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, right eye Oct Impression/Plan Related to Horse shoe tear of retina without detachment, right eye Impression/Plan Related to Serou s detachment of retinal pigment epithelium Oct Impression/Plan Related to Latti ce degeneration of retina, right eye Impression/Plan Related to Round hole, right eye Oct- Impression/Plan Related to Vitre ous degeneration, right eye Apr- Impression/Plan Related to Vitre omacular adhesion, left eye Oct- Impression/Plan Related to Vitre ous degeneration, right eye Impression/Plan Related to Latti ce degeneration of retina, right eye Apr- Impression/Plan Related to Horse shoe tear of retina without detachment, right eye Assessments Type Assessment Date assessment Ocular pain, right eye 20 assessment Punctate keratitis, right eye Se impression Ocular pain, right eye: H57.11 S impression Punctate keratitis, right eye: H 16.141 Patient Care Teams Name Effective Dates (start - stop) Status Members No Information
== END 2024-06-25 15:39 | disposition home or self-care (01) ==
PROVIDERS: PCP Nurse Practitioner Family; Visit Provider Hospitalist
DX: J98.11 Atelectasis (principal); R91.8 Other nonspecific abnormal finding of lung field; G47.33 Obstructive sleep apnea (adult) (pediatric)
CPT/HCPCS: 99214

== ENCOUNTER → 2024-08-22 14:21 | Outpatient (BNVA) | payer MEDICARE, SELFPAY | PROVIDERS: PCP Nurse Practitioner Family; Visit Provider Internal Medicine | DX: K21.9 Gastro-esophageal reflux disease without esophagitis (principal); Z86.19 Personal history of other infectious and parasitic diseases | CPT/HCPCS: 99202 ==

== ENCOUNTER → 2024-09-17 12:01 | Outpatient (REF) | payer MEDICARE, SELFPAY ==
--- NOTE | 2024-09-17 12:06 | ECG_ITS ---
Test Reason : PRE OP Blood Pressure : */* mmHG Vent. Rate : 75 BPM Atrial Rate : 75 BPM P-R Int : 180 ms QRS Dur : 74 ms QT Int : 348 ms P-R-T Axes : 21 54 74 degrees QTcB Int : 388 ms Normal sinus rhythm Nonspecific T wave abnormality Abnormal ECG When compared with ECG of 11-Dec-2022 10:56, No significant change was found Referred By: Abdifatah Reyes Electronically Signed By: SHON MOULTON MD
--- OUTSIDE RECORDS SUMMARY | 2024-09-17 14:10 | XMS_ITS | Data Portability ---
Author Organization [place] - [facility] Address [facility] [place] [address] Care Team Providers Care Inspector [employer] Name Role Phone JACIK MAYEN Primary Care Provider Assessment Encounter Date Assessment Date Assessment LastModified by Organization Details LastModified Time 03/18/2021 03/18/2021 Time Spent: Alcohol screening and counselin minutes Depression Screening and counselin minutes 1. He he is overweight his body mass index is 34 diet weight loss exercise were encouraged. His is presently in weight watchers and losing weight 2. memory loss with early dementia progressing according to his he got lost driving here today Ms. 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 given his failing memory I recommended he decrease his Prilosec which he takes for GERD every other day and see if he can tolerate that he was taking it b.i.d. that q.day now with no symptoms. 4. allergic rhinitis using [id number] medications. 5. Asthma not using any medications at this time has been on Advair in the past. 6. GERD as stated above. 7. Preventive healthcare discuss he is up-to-date with all vaccines gets a comprehensive eye exam every year his pain level is 0/10 Not available 03/18/2021 13:51:20 04/10/2021 04/10/2021 75-year-old white male with confusion and dementia presents today I 1st told him that in the future he should not take Pepto-Bismol for constipation as this is something used for diarrhea and colitis and it is a complete opposite affect seems surprised by that I then explained to him that a urologist really has nothing to do with his colon and this is the doctor for his prostate bladder and kidneys he seems surprised by that as he is all better I do not think there is anything further we need to do and he has had a colonoscopy which was normal he tells me within last 36 months and he is having normal bowel movements now we discussed diet and future colon health eva Not available 04/10/2021 14:26:33 10/26/2021 10/26/2021 The patient is a 76-year-old male who comes in today with a biopsy-proven basal cell carcinoma. I explained that we can remove this in the office under local anesthesia. I spoke to him about the risks, benefits, and alternatives to surgery. We will plan to do this sometime in the next few weeks. We will also plan to perform shave biopsies of the other two lesions to rule out any sort of malignant process. Not available 10/26/2021 16:23:33 11/23/2021 11/23/2021 We will contact the patient with his pathology results when they become available. Not available 11/23/2021 13:54:33 03/26/2022 03/26/2022 The patient seems to be healing appropriately. No further intervention is required. Follow-up as needed. Not available 03/26/2022 15:31:53 Plan of Treatment Reminders Order Date Submit Date Provider Last Modified By Organization Details Last Modified Time Details Appointments None recorded. Lab surgical pathology study 2021 022 [email or web address] Not available 07:48:29 surgical pathology study 2021 022 [email or web address] Not available 07:48:30 surgical pathology study 2021 022 JUAN Not available 08:20:17 vitamin D, 25-hydroxy, total, serum 2020 021 [facility], [address], [place], [address], 08:13:21 lipid panel, serum 2020 021 [facility], [address], [place], [address], 08:13:19 CMP, serum or plasma 2020 021 [facility], [address], [place], [address], 08:13:18 PSA, total, serum or plasma 2020 021 [facility], [address], [place], [address], 08:13:21 TSH, serum or plasma 2020 021 [facility], [address], [place], [address], 08:13:20 urinalysis complete, reflex culture 2020 021 [facility], [address], [place], [address], 08:13:18 CBC w/ auto diff 2020 021 [facility], [address], [place], [address], 08:13:17 Referral None recorded. Procedures None recorded. Surgeries None recorded. Imaging None recorded. Medication Orders None recorded. Patient TargetsNo targets recorded. Patient Instructions Encounter Date Encounter Id Patient Instructions Last Modified By Organization Details Last Modified Time 03/18/2021 [id number] alcohol use disorders identification test* [email or web address] Not available 03/18/2021 13:53:15 fall risk screening* Not agnes ilable 03/18/2021 13:53:15 geriatric depres logan screen* [email or web address] Not available 03/18/2021 13:53:15 multi-dimensiona l health assessment questionnaire* JUAN Not available 03/18/2021 21:36:12 Advance Care Directives Patient WebLink Handout [email or web address] Not available 03/18/2021 13:53:15 advance directiv es: care instructions [email or web address] Not available 03/18/2021 13:53:15 Personalized Hea lth Plan and Screening Recommendations Advance Directives - Do you have one? Advance Directives - Do we have your advance directive on file in your health record? Primary Prevention/Intervent ion (prevents or decreases the chance of common diseases from occurring) Tobacco/Nicotine Risk:? Alcohol Misuse Screening:? Weight:? Physical activity:? Nutrition:? Fall Risk (screened today):? Vaccines Influenza:? ? ? Pneumococcal:? ? ? Shingles:? ? ? COVID-19:? ? ? Tetanus:? ? ? Hepatitis B:? ? ? Secondary Prevention/Intervent ion (detects treatable diseases before they may cause symptoms, disability, or ) Prostate Cancer Screening:? Osteoporosis Screening:? ? ? Colon Cancer Screening:? Eye Disease Screening:? ? ? Depression Screening:? Cognitive Screening:? Diabetes Screening: Cardiovascular Disease (CVD) Screening: labs - Aspirin Recommendations: you are Abdominal Aortic Aneurysm (AAA) Screening: Lung Cancer Screening: Hepatitis B Screening: Hepatitis C Screening: Sexually Transmitted Infections Screening: Human Immunodeficiency Virus (HIV) Screening: Tertiary Prevention/Intervent ion (identifies your current known diseases and attempts to prevent complications of those diseases) Complications of many of these diseases can be minimized through the primary prevention/intervent ions listed above but some may require medication addition/change or referrals and will be addressed today or at a follow-up appointment? ? ? Pain Control Status: ? ? ? Pain Medication Use and Risk for Opioid Misuse: ? ? ? Pain Management Plan: ? ? ? [email or web address] Not available 03/18/2021 13:13:00 10/26/2021 [id number] learning about b yuki cell skin cancer Not available 10/26/2021 16:23:55 skin lesions: ca re instructions Not available 10/26/2021 16:23:55 Reason for Referral None Reported. Results Created Date Observation Date Name Description Value Unit Range Abnormal Flag Note LastModifiedBy Organization Detail LastModifiedTime 03/24/20 21 03/25/2021 CBC WITH DIFFE RENTI AL/PL ATELE T WBC 10.1 x10e3 /uL 3.4-10 .8 Not Available [facility] ([facility]) [address] [facility] [address], [place], [address], 03/28/2021 08:13:16 03/24/20 21 03/25/2021 CBC WITH DIFFE RENTI AL/PL ATELE T RBC 4.80 x10e6 /uL 4.14-5 .80 Not Available [facility] ([facility]) [address] [facility] [address], [place], [address], 03/28/2021 08:13:16 03/24/2003/25/2021 CBC WITH DIFFE RENTI AL/PL ATELE T hemoglobin 15.7 g/dL 13.0-1 7.7 Not Available [facility] ([facility]) [address] [facility] [address], [place], [address], 03/28/2021 08:13:16 03/24/2003/25/2021 CBC WITH DIFFE RENTI AL/PL ATELE T hematocrit 44.9 % 37.5-5 1.0 Not Available [facility] ([facility]) [address] [facility] [address], [place], [address], 03/28/2021 08:13:16 03/24/2003/25/2021 CBC WITH DIFFE RENTI AL/PL ATELE T MCV 94 fL 79-97 Not Available [facility] ([facility]) [address] [facility] [address], [place], [address], 03/28/2021 08:13:16 03/24/20 21 03/25/2021 CBC WITH DIFFE RENTI AL/PL ATELE T MCH 32.7 pg 26.6-3 3.0 Not Available [facility] ([facility]) [address] [facility] [address], [place], [address], 03/28/2021 08:13:16 03/24/2003/25/2021 CBC WITH DIFFE RENTI AL/PL ATELE T MCHC 35.0 g/dL 31.5-3 5.7 Not Available [facility] ([facility]) [address] [facility] [address], [place], [address], 03/28/2021 08:13:16 03/24/2003/25/2021 CBC WITH DIFFE RENTI AL/PL ATELE T RDW 12.1 % 11.6-1 5.4 Not Available [facility] ([facility]) [address] [facility] [address], [place], [address], 03/28/2021 08:13:16 03/24/2003/25/2021 CBC WITH DIFFE RENTI AL/PL ATELE T platelets 303 x10e3 /uL 150-45 0 Not Available [facility] ([facility]) [address] [facility] [address], [place], [address], 03/28/2021 08:13:16 03/24/2003/25/2021 CBC WITH DIFFE RENTI AL/PL ATELE T neutrophils 68 % not estab. Not Available [facility] ([facility]) [address] [facility] [address], [place], [address], 03/28/2021 08:13:16 03/24/2003/25/2021 CBC WITH DIFFE RENTI AL/PL ATELE T lymphs 23 % not estab. Not Available [facility] ([facility]) [address] [facility] [address], [place], [address], 03/28/2021 08:13:16 03/24/20 21 03/25/2021 CBC WITH DIFFE RENTI AL/PL ATELE T monocytes 7 % not estab. Not Available [facility] ([facility]) [address] [facility] [address], [place], [address], 03/28/2021 08:13:16 03/24/20 21 03/25/2021 CBC WITH DIFFE RENTI AL/PL ATELE T eos 2 % not estab. Not Available [facility] ([facility]) [address] [facility] [address], [place], [address], 03/28/2021 08:13:16 03/24/2003/25/2021 CBC WITH DIFFE RENTI AL/PL ATELE T basos 0 % not estab. Not Available [facility] ([facility]) [address] [place], [address], 03/28/2021 08:13:16 03/24/2003/25/2021 CBC WITH DIFFE RENTI AL/PL ATELE T immature cells BANQUET STEWARD Not Available [facility] ([facility]) [address] [place], [address], 03/28/2021 08:13:16 03/24/2003/25/2021 CBC WITH DIFFE RENTI AL/PL ATELE T neutrophils (absolute) 6.8 x10e3 /uL 1.4-7. 0 Not Available [facility] ([facility]) [address] [place], [address], 03/28/2021 08:13:16 03/24/2003/25/2021 CBC WITH DIFFE RENTI AL/PL ATELE T lymphs (absolute) 2.3 x10e3 /uL 0.7-3. 1 Not Available [facility] ([facility]) [address] [place], [address], 03/28/2021 08:13:16 03/24/2003/25/2021 CBC WITH DIFFE RENTI AL/PL ATELE T monocytes(ab solute) 0.7 x10e3 /uL 0.1-0. 9 Not Available [facility] ([facility]) [address] [place], [address], 03/28/2021 08:13:16 03/24/20 21 03/25/2021 CBC WITH DIFFE RENTI AL/PL ATELE T eos (absolute) 0.2 x10e3 /uL 0.0-0. 4 Not Available [facility] ([facility]) [address] [facility] [address], [place], [address], 03/28/2021 08:13:16 03/24/20 21 03/25/2021 CBC WITH DIFFE RENTI AL/PL ATELE T baso (absolute) 0.0 x10e3 /uL 0.0-0. 2 Not Available [facility] ([facility]) [address] [facility] [address], [place], [address], 03/28/2021 08:13:16 03/24/20 21 03/25/2021 CBC WITH DIFFE RENTI AL/PL ATELE T immature granulocytes 0 % not estab. Not Available [facility] ([facility]) [address] [facility] [address], [place], [address], 03/28/2021 08:13:16 03/24/20 21 03/25/2021 CBC WITH DIFFE RENTI AL/PL ATELE T immature grans (abs) 0.0 x10e3 /uL 0.0-0. 1 Not Available [facility] ([facility]) [address] [facility] [address], [place], [address], 03/28/2021 08:13:16 03/24/20 21 03/25/2021 CBC WITH DIFFE RENTI AL/PL ATELE T NRBC BANQUET STEWARD Not Available [facility] ([facility]) [address] [facility] [address], [place], [address], 03/28/2021 08:13:16 03/24/20 21 03/25/2021 CBC WITH DIFFE RENTI AL/PL ATELE T hematology comments: BANQUET STEWARD Not Available [facility] ([facility]) [address] [facility] [address], [place], [address], 03/28/2021 08:13:16 03/24/20 21 03/25/2021 COMP. METAB OLIC PANEL (14) glucose 101 mg/dL 65-99 above high normal Not Available [facility] ([facility]) [address] [facility] [address], [place], [address], 03/28/2021 08:13:17 03/24/20 21 03/25/2021 COMP. METAB OLIC PANEL (14) BUN 17 mg/dL 8-27 Not Available [facility] ([facility]) [address] [facility] [address], [place], [address], 03/28/2021 08:13:17 03/24/20 21 03/25/2021 COMP. METAB OLIC PANEL (14) creatinine 1.06 mg/dL 0.76-1 .27 Not Available [facility] ([facility]) [address] [facility] [address], [place], [address], 03/28/2021 08:13:17 03/24/20 21 03/25/2021 COMP. METAB OLIC PANEL (14) eGFR if nonafricn AM 69 mL/mi n/1.7 3 >59 Not Available [facility] ([facility]) [address] [facility] [address], [place], [address], 03/28/2021 08:13:17 03/24/20 21 03/25/2021 COMP. METAB OLIC PANEL (14) eGFR if africn AM 80 mL/mi n/1.7 3 >59 Lab [facility] curre ntly repor ts eGFR in compl iance with the curre nt recom menda tions of the [facility] ation . [facility] will updat e repor ting as new guide lines are publi shed from the NKF-A SN Task force . Not Available [facility] ([facility]) [address] [facility] [address], [place], [address], 03/28/2021 08:13:17 03/24/20 21 03/25/2021 COMP. METAB OLIC PANEL (14) BUN/creatini ne ratio 16 10-24 Not Available [facility] ([facility]) [address] [facility] [place], [address], 03/28/2021 08:13:17 03/24/20 21 03/25/2021 COMP. METAB OLIC PANEL (14) sodium 143 mmol/ L 134-14 4 Not Available [facility] ([facility]) [address] [facility] [place], [address], 03/28/2021 08:13:17 03/24/20 21 03/25/2021 COMP. METAB OLIC PANEL (14) potassium 4.7 mmol/ L 3.5-5. 2 Not Available [facility] ([facility]) [address] [facility] [place], [address], 03/28/2021 08:13:17 03/24/20 21 03/25/2021 COMP. METAB OLIC PANEL (14) chloride 100 mmol/ L 96-106 Not Available [facility] ([facility]) [address] [facility] [place], [address], 03/28/2021 08:13:17 03/24/20 21 03/25/2021 COMP. METAB OLIC PANEL (14) carbon dioxide, total 24 mmol/ L 20-29 Not Available [facility] ([facility]) [address] [facility] [place], [address], 03/28/2021 08:13:17 03/24/20 21 03/25/2021 COMP. METAB OLIC PANEL (14) calcium 9.5 mg/dL 8.6-10 .2 Not Available [facility] ([facility]) [address] [facility] [place], [address], 03/28/2021 08:13:17 03/24/20 21 03/25/2021 COMP. METAB OLIC PANEL (14) protein, total 7.1 g/dL 6.0-8. 5 Not Available [facility] ([facility]) [address] [place], [address], 03/28/2021 08:13:17 03/24/20 21 03/25/2021 COMP. METAB OLIC PANEL (14) albumin 4.7 g/dL 3.7-4. 7 Not Available [facility] ([facility]) [address] [place], [address], 03/28/2021 08:13:17 03/24/20 21 03/25/2021 COMP. METAB OLIC PANEL (14) globulin, total 2.4 g/dL 1.5-4. 5 Not Available [facility] ([facility]) [address] [place], [address], 03/28/2021 08:13:17 03/24/20 21 03/25/2021 COMP. METAB OLIC PANEL (14) A/G ratio 2.0 1.2-2. 2 Not Available [facility] ([facility]) [address] [place], [address], 03/28/2021 08:13:17 03/24/20 21 03/25/2021 COMP. METAB OLIC PANEL (14) bilirubin, total 0.4 mg/dL 0.0-1. 2 Not Available [facility] ([facility]) [address] [place], [address], 03/28/2021 08:13:17 03/24/20 21 03/25/2021 COMP. METAB OLIC PANEL (14) alkaline phosphatase 122 IU/L 48-121 above high normal Eff ectiv e Septe mber 2020 Alkal ine Phosp hatas e refer ence inter keaton will be blanco ing to: Age Male Femal e 0 - 5 days 47 - 127 47 - 127 6 - 10 days 29 - 242 29 - 242 11 - 20 days 109 - 357 109 - 357 21 - 30 days 94 - 494 94 - 494 1 - 2 month s 149 - 539 149 - 539 3 - 6 month s 131 - 452 131 - 452 7 - 11 month s 117 - 401 117 - 401 12 month s - 6 years 158 - 369 158 - 369 7 - 12 years 150 - 409 150 - 409 13 years 156 - 435 78 - 227 14 years 114 - 375 64 - 161 15 years 88 - 279 56 - 134 16 years 74 - 207 51 - 121 17 years 63 - 161 47 - 113 18 - 20 years 51 - 125 42 - 106 >20 years 44 - 121 44 - 121 Not Available [facility] ([facility]) [address] [place], [address], 03/28/2021 08:13:17 03/24/20 21 03/25/2021 COMP. METAB OLIC PANEL (14) AST (SGOT) 26 IU/L 0-40 Not Available [facility] ([facility]) [address] [place], [address], 03/28/2021 08:13:17 03/24/20 21 03/25/2021 COMP. METAB OLIC PANEL (14) ALT (SGPT) 34 IU/L 0-44 Not Available [facility] ([facility]) [address] [place], [address], 03/28/2021 08:13:17 03/24/20 21 03/25/2021 UA WITH CULTU RE REFLE X specific gravity 1.019 1.005- 1.030 Not Available [facility] ([facility]) [address] [place], [address], 03/28/2021 08:13:18 03/24/20 21 03/25/2021 UA WITH CULTU RE REFLE X pH 6.0 5.0-7. 5 Not Available [facility] ([facility]) [address] [place], [address], 03/28/2021 08:13:18 03/24/20 21 03/25/2021 UA WITH CULTU RE REFLE X urine-color Yellow yellow Not Available [facility] ([facility]) [address] [place], [address], 03/28/2021 08:13:18 03/24/20 21 03/25/2021 UA WITH CULTU RE REFLE X appearance Clear clear Not Available [facility] ([facility]) [address] [facility] [address], [place], [address], 03/28/2021 08:13:18 03/24/20 21 03/25/2021 UA WITH CULTU RE REFLE X WBC esterase Negati ve negati ve Not Available [facility] ([facility]) [address] [facility] [address], [place], [address], 03/28/2021 08:13:18 03/24/20 21 03/25/2021 UA WITH CULTU RE REFLE X protein Negati ve negati ve/tra ce Not Available [facility] ([facility]) [address] [facility] [address], [place], [address], 03/28/2021 08:13:18 03/24/20 21 03/25/2021 UA WITH CULTU RE REFLE X glucose Negati ve negati ve Not Available [facility] ([facility]) [address] [facility] [address], [place], [address], 03/28/2021 08:13:18 03/24/20 21 03/25/2021 UA WITH CULTU RE REFLE X ketones Negati ve negati ve Not Available [facility] ([facility]) [address] [place], [address], 03/28/2021 08:13:18 03/24/20 21 03/25/2021 UA WITH CULTU RE REFLE X occult blood Trace negati ve abnormal Not Available [facility] ([facility]) [address] [place], [address], 03/28/2021 08:13:18 03/24/20 21 03/25/2021 UA WITH CULTU RE REFLE X bilirubin Negati ve negati ve Not Available [facility] ([facility]) [address] [facility], [place], [address], 03/28/2021 08:13:18 03/24/20 21 03/25/2021 UA WITH CULTU RE REFLE X urobilinogen ,semi-qn 0.2 mg/dL 0.2-1. 0 Not Available [facility] ([facility]) [address] [facility] [address], [place], [address], 03/28/2021 08:13:18 03/24/20 21 03/25/2021 UA WITH CULTU RE REFLE X nitrite, urine Negati ve negati ve Not Available [facility] ([facility]) [address] [facility] [address], [place], [address], 03/28/2021 08:13:18 03/24/20 21 03/25/2021 UA WITH CULTU RE REFLE X microscopic examination See below: Micro scopi c was indic ated and was perfo rmed. Not Available [facility] ([facility]) [address] [facility] [address], [place], [address], 03/28/2021 08:13:18 03/24/20 21 03/25/2021 UA WITH CULTU RE REFLE X WBC None seen /hpf 0 - 5 Not Available [facility] ([facility]) [address] [facility] [address], [place], [address], 03/28/2021 08:13:18 03/24/20 21 03/25/2021 UA WITH CULTU RE REFLE X RBC 0-2 /hpf 0 - 2 Not Available [facility] ([facility]) [address] [facility] [address], [place], [address], 03/28/2021 08:13:18 03/24/20 21 03/25/2021 UA WITH CULTU RE REFLE X epithelial cells (non renal) None seen /hpf 0 - 10 Not Available [facility] ([facility]) [address] [facility] [address], [place], [address], 03/28/2021 08:13:18 03/24/20 21 03/25/2021 UA WITH CULTU RE REFLE X epithelial cells (renal) BANQUET STEWARD Not Available [facility] ([facility]) [address], [place], [address], 03/28/2021 08:13:18 03/24/20 21 03/25/2021 UA WITH CULTU RE REFLE X casts None seen /lpf none seen Not Available [facility] ([facility]) [address], [place], [address], 03/28/2021 08:13:18 03/24/20 21 03/25/2021 UA WITH CULTU RE REFLE X cast type BANQUET STEWARD Not Available [facility] ([facility]) [address], [place], [address], 03/28/2021 08:13:18 03/24/20 21 03/25/2021 UA WITH CULTU RE REFLE X crystals BANQUET STEWARD Not Available [facility] ([facility]) [address], [place], [address], 03/28/2021 08:13:18 03/24/20 21 03/25/2021 UA WITH CULTU RE REFLE X crystal type BANQUET STEWARD Not Available [facility] ([facility]) [address], [place], [address], 03/28/2021 08:13:18 03/24/20 21 03/25/2021 UA WITH CULTU RE REFLE X mucus threads BANQUET STEWARD Not Available [facility] ([facility]) [address], [place], [address], 03/28/2021 08:13:18 03/24/20 21 03/25/2021 UA WITH CULTU RE REFLE X bacteria None seen none seen/f ew Not Available [facility] ([facility]) [address], [place], [address], 03/28/2021 08:13:18 03/24/20 21 03/25/2021 UA WITH CULTU RE REFLE X yeast BANQUET STEWARD Not Available [facility] ([facility]) [address] [place], [address], 03/28/2021 08:13:18 03/24/20 21 03/25/2021 UA WITH CULTU RE REFLE X trichomonas BANQUET STEWARD Not Available [facility] ([facility]) [address] [place], [address], 03/28/2021 08:13:18 03/24/20 21 03/25/2021 UA WITH CULTU RE REFLE X comment BANQUET STEWARD Not Available [facility] ([facility]) [address] [place], [address], 03/28/2021 08:13:18 03/24/20 21 03/25/2021 UA WITH CULTU RE REFLE X urinalysis reflex Commen t This speci men will not refle x to a Urine Cultu re. Not Available [facility] ([facility]) [address] [place], [address], 03/28/2021 08:13:18 03/24/20 21 03/25/2021 LIPID PANEL cholesterol, total 235 mg/dL 100-19 9 above high normal Not Available [facility] ([facility]) [address] [place], [address], 03/28/2021 08:13:19 03/24/20 21 03/25/2021 LIPID PANEL triglyceride s 157 mg/dL 0-149 above high normal Not Available [facility] ([facility]) [address] [place], [address], 03/28/2021 08:13:19 03/24/20 21 03/25/2021 LIPID PANEL HDL cholesterol 46 mg/dL >39 Not Available [facility] ([facility]) [address] [place], [address], 03/28/2021 08:13:19 03/24/20 21 03/25/2021 LIPID PANEL VLDL cholesterol concha 29 mg/dL 5-40 Not Available [facility] ([facility]) [address] [facility], [place], [address], 03/28/2021 08:13:19 03/24/20 21 03/25/2021 LIPID PANEL LDL chol calc ([facility]) 160 mg/dL 0-99 above high normal Not Available [facility] ([facility]) [address] [facility], [place], [address], 03/28/2021 08:13:19 03/24/20 21 03/25/2021 LIPID PANEL comment: BANQUET STEWARD Not Available [facility] ([facility]) [address] [facility], [place], [address], 03/28/2021 08:13:19 03/24/20 21 03/27/2021 THYRO ID STIMU LATIN G HORMO NE TSH-icma 1.6 uu/mL Refer ence Range : Non-P regna nt Adult 0.450 -4.50 0 Not Available [employer] [facility] [address] [facility], [place], [address], 03/28/2021 08:13:20 03/24/20 21 03/25/2021 PROST ATE-S PECIF IC AG prostate specific Ag 6.7 NG/mL 0.0-4. 0 above high normal Willam ECLIA metho dolog y. Accor ding to the Ameri can Urolo gical Assoc iatio n, Serum PSA shoul d decre ase and remai n at undet ectab le level s after radic al prost atect roni. The AUA defin es bioch emica l recur rence as an initi al PSA value 0.2 ng/mL or great er follo wed by a subse quent confi rmato ry PSA value 0.2 ng/mL or great er. Value s obtai shivam with diffe rent assay metho ds or kits canno t be used inter blanco eably . Resul ts canno t be inter prete d as absol ben evide nce of the prese nce or absen ce of cesario shelby se. Not Available [facility] ([facility]) [address] [facility], [place], [address], 03/28/2021 08:13:20 03/24/20 21 03/25/2021 VITAM IN D, 25-HY DROXY vitamin D, 25-hydroxy 32.0 NG/mL 30.0-1 00.0 Vitam in D defic iency has been defin ed by the Insti tute of Medic ine and an Endoc rine Socie ty pract ice guide line as a level of serum 25-OH vitam in D less than 20 ng/mL (1,2) . The Endoc rine Socie ty went on to furth er defin e vitam in D insuf ficie ncy as a level betwe en 21 and 29 ng/mL (2). 1. IOM (Inst itute of Medic ine). 2009. Dieta ry refer ence intak es for calci um and D. Basliia jacobs [place]: The Natio nal [facility] . 2. Graham pineda [place], Raffaele rasmussen [place], Nicky off-F sumit i FLORES, et al. Evalu ation , treat ment, and preve ntion of vitam in D defic iency : an Endoc rine Socie ty clini ocncha pract ice guide line. JCEM. 2010; 96(7) :1911 -30. Not Available [facility] ([facility]) [address] [facility], [place], [address], 03/28/2021 08:13:21 11/24/19 22 12/15/2021 SURGI CONCHA PATHO LOGY REPOR T results . ACCES LOGAN: 804-[id number] RESPO NSIBL E PATHO LOGIS T: MILY OZUNA MD COLLE CTED DATE/ TIME: 022 17:28 EDT RECEI FAUSTO DATE/ TIME 2021 17:28 EDT Surgi concha Patho logy Repor t - 2021 09:40 EDT - Modif ied Speci men A. BCC right cheek B. Right cheek lesio n C. Right media l cheek lesio n Diagn osis A. Right cheek : Basal cell carci noma, compl etely excis ed. B. Right cheek : Intra derma l nevus . C. 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 El ectro nical ly Yojana d By MILY OZUNA MD 12/15 09:40 EDT Sanch ezChevy io Histo logy Techn o 11/26 10:44 EDT PKB Perfo rmed at: [facility] [address] [place] [address] Phone : Gross Descr iptio n A. Recei fausto in forma abiola fixat michelle label ed with the patie nt's name desig nated BCC right cheek , it consi sts of a porti on of soft pink- gomez tissu e measu ring 1.2 x 1 x 0.5 cm in size. Locat ed at the cente r of the skin is a flat lesio n measu ring 0.5. The speci men is inked black , seria lly secti oned and entir clarence submi tted in casse tte A. Final diagn osis deter mined by micro scopi c exami natio n. B. Recei fausto in forma abiola fixat michelle label ed with the patie nt's name desig nated righ t cheek lesio n , it consi sts of a singl e soft pink- gomez tissu e measu ring 0.5 cm in size, which is submi tted in casse tte B. Final diagn osis deter mined by micro scopi c exami natio n. C. Recei fausto in forma abiola fixat michelle label ed with the patie nt's name desig nated righ t media l cheek lesio n , it consi sts of a singl e soft pink- gomez tissu e measu ring 0.4 cm in size, which is submi tted in casse tte C. Final diagn osis deter mined by micro scopi c exami natio n. [id number] x 3 / / 11/25 17:33 EDT Clini concha Histo ry NA Not Available [facility] (Lab) [id number], [place], [address], 12/15/2021 09:40:20 11/26/19 22 11/26/2021 SURGI CONCHA PATHO LOGY REPOR T results . ACCES LOGAN: [id number] RESPO NSIBL E PATHO LOGIS T: MILY OZUNA MD COLLE CTED DATE/ TIME: 2021 17:28 EDT RECEI FAUSTO DATE/ TIME 2021 17:28 EDT Surgi concha Patho logy Repor t - 2021 10:44 EDT - Auth (Veri fied) Speci men A. BCC right cheek B. Right cheek lesio n C. Right media l cheek lesio n Diagn osis A. Right cheek : Basal cell carci noma, compl etely excis ed B. Right cheek : Intra derma l nevus C. Right media l cheek : Actin ic kerat osis El ectro nical ly Yojana d By MILY OZUNA MD 11/26 10:44 EDT Sanch ezChevy io Histo logy Techn o 11/26 10:44 EDT PKB Perfo rmed at: [facility] [address] [place] [address] Phone : Gross Descr iptio n A. Recei fausto in forma abiola fixat michelle label ed with the patie nt's name desig nated BCC right cheek , it consi sts of a porti on of soft pink- gomez tissu e measu ring 1.2 x 1 x 0.5 cm in size. Locat ed at the cente r of the skin a flat lesio n measu ring 0.5. The speci men is inked black , seria lly secti oned and entir clarence submi tted in casse tte A. Final diagn osis deter mined by micro scopi c exami natio n. B. Recei fausto in forma abiola fixat michelle label ed with the patie nt's name alejandrina amrin n , it consi sts of a singl e soft pink- gomez tissu e measu ring 0.5 cm in size, which is submi tted in casse tte B. Final diagn osis deter mined by micro scopi c exami natio n. C. Recei fausto in forma abiola fixat michelle label ed with the patie nt's name alejandrina ramey media l cheek lesio n , it consi sts of a singl e soft pink- gomez tissu e measu ring 0.4 cm in size, which is submi tted in casse tte C. Final diagn osis deter mined by micro scopi c exami natio n. 59198 x 3 / / 11/25 17:33 EDT Clini concha Histo ry NA Not Available [facility] (Lab) [id number], [place], [address], 11/26/2021 10:44:08 05/20/2005/20/2021 MRI, prost ate, w/wo contr ast No observ ation record ed. [facility] ([facility]) [address] [place] [address], [address], 05/22/2021 08:38:37 Result Notes None recorded. Problems Name Problem SNOMED Code Status Onset Date Resolution Date Notes Provider Name and Address Organization Details Recorded Time Allergic conjunctivitis 793243976 Active Nicolasa napoles [facility] [place] 8 13:23:11 Sleep apnea 92910209 Active 2016 Nicolasa napoles [facility] [place] 8 13:22:58 Vitamin D deficiency 99422204 Active 2016 Nicolasa napoles [facility] [place] 8 13:23:14 Osteoarthritis 743429540 Active 2016 Nicolasa Perdue [place] - [facility] [place] 8 13:23:18 Memory impairment 760193412 Active 2016 Nicolasa Perdue null, [place] - [facility] [place] 7 15:52:18 Generalized anxiety disorder 52790618 Active 2017 Nicolasa Perdue null, [place] - [facility] [place] 8 13:45:01 Obesity 107752231 Active 2017 Nicolasa Perdue [place], [place] - [facility]14 [place] 8 08:42:14 Basal cell carcinoma of skin 310044464 Active 2019 BAKARI RAHMAN MD [address], [phone], [facility] - [facility]14 [place] 0 13:54:56 Skin lesion 40487478 Active 2021 BAKARI RAHMAN MD [address],[facility] [address], [place], [address], [facility] - [facility]14 [place] 2 16:23:50 Persistent insomnia 738552996 Active Nicolasa Perdue null, [place] - [facility] [place] 8 13:23:21 Testicular hypofunction 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 Active Nicolasa Perdue null, [place] - [facility] [place] 8 13:23:19 Gastroesophage al reflux disease 121803262 Active Nicolasa Perdue [place] - [address] 8 13:23:08 Hip pain 73613153 Active Nicolasa Perdue null, [place] - [facility]14 [place] 8 13:23:25 Allergic rhinitis 15067097 Active Nicolasa Perdue null, [place] - [facility] [place] 8 13:23:16 Asthma 493648014 Active Nicolasa Perdue null, [place] - [facility] [place] 8 13:23:05 Pure hypercholester olemia 145562538 Active Nicolasa Perdue null, [place] - [facility] [place] 8 13:23:07 Problem Notes None recorded. Procedures Surgical History Date Name Laterality Status Provider Name and Address Organization Details Recorded Time 11/24/19 22 Blank Procedure Template completed BAKARI RAHMAN MD [address], [place], [address], [address] 11/23/2021 13:54:10 03/18/20 21 Medicare Wellness CPT Code, Subsequent completed Tracy Reagan, [address] 03/18/2021 13:13:01 03/17/20 20 Medicare Wellness CPT Code, Subsequent completed Tracy Reagan, [address] 03/17/2020 10:36:00 11/08/19 20 Telehealth Communication completed Liseth Le, [address] 11/08/2019 08:27:00 04/26/20 19 Removal of Foreign Body completed Raleigh Downey MD [address], [place], [address], [address] 04/26/2019 12:57:03 03/12/20 19 Medicare Wellness CPT Code, Subsequent completed Tracyjerry Reagan, [address] 03/12/2019 10:10:40 03/07/20 18 Medicare Wellness CPT Code, Subsequent completed Sheri Collins, [address] 03/07/2018 13:19:38 02/10/20 17 Medicare Wellness CPT Code, Subsequent completed Scarlett Hanna, [address] 02/09/2017 13:16:21 07/20/19 17 Removal of foreign body - Eye completed Nicolasa Perdue [address] 07/20/2016 11:49:56 07/18/19 12 Colonoscopy completed Sheri Collins [address] 11/22/2016 09:39:16 hernia completed BAKARI RAHMAN MD [address], [place], [address], [address] 09/04/2019 13:51:45 Imaging Results Imaging Date Name Status [facility] Details LastModified Time 05/20/2021 MRI, prostate, w/wo contrast completed [facility] ([address], [address], 05/22/2021 08:38:37 Procedure Notes None recorded. Medical Equipment None Reported. Allergies Allergen ID Allergen Name Allergen Category Reaction Reaction Severity Criticality Documentation Date Start Date Code Code System Note Provider Name and Address Organization Details Recorded Time 810133 Product containin g 3-hydroxy -3-methyl glutaryl- coenzyme A reductase inhibitor (product) medicatio n other moderate Not available 01/12/2016 57481 009 SNOMED Palpi tatio ns Quique Stephenson [facility], [place] - [facility] [place] 6 14:54:04 Medications Name Sig Start Date Stop Date Status Note LastModified by Organization Details LastModified Time levofloxa amaris 750 mg tabs active Not Available Not Available Not Available galantami ne hydrobrom kat 8 mg tabs 11/07 completed Not Available Not Available Not Available compounde d medicatio n take 1 tablet every day 08/04 completed Not Available Not Available Not Available compounde d medicatio n take 1 tablet every day 06/21 completed Not Available Not Available Not Available levofloxa amaris 500 mg tabs 02/09 completed Not Available Not Available Not Available meloxicam 15 mg tabs active Not Available Not Available Not Available ranitidin e hcl 150 mg tabs 06/21 completed Not Available Not Available Not Available memantine hcl 5 mg tabs 02/20 completed Not Available Not Available Not Available zetia 10 mg tabs active Not Available Not Available Not Available alprazola m 0.25 mg tabs 06/29 completed Not Available Not Available Not Available cefadroxi l 500 mg caps 02/09 completed Not Available Not Available Not Available ventolin hfa 108 (90 base) mcg/actae rs 02/11 completed Not Available Not Available Not Available oxycodone /acetamin ophen 5-325 mg tabs 06/21 completed Not Available Not Available Not Available fluzone high-dose pf 3798-9526 .5 ml mehrdad active Not Available Not Available Not Available fluzone high-dose pf 1886-2007 .5 ml mehrdad active Not Available Not Available Not Available gloria-d 24 hour allergy & congestio n 180-240 mg tb24 12/28 completed Not Available Not Available Not Available compounde d medicatio n take 1 tablet every day 02/19 completed Not Available Not Available Not Available tobramyci n sulfate 0.3 % soln 11/07 completed Not Available Not Available Not Available prednison e 10 mg (48) tbpk active Not Available Not Available No t Available compounde d medicatio n TAKE ONE DIRECTED 30-60 MIN PRIOR TO SEXYAL ACTIVITY 12/27 completed Not Available Not Available Not Available polymyxin b sulfate/t rimethopr im sulfate 86633-1.1 unit/ml-% soln 02/09 completed Not Available Not Available Not Available fluconazo le 200 mg tabs 06/11 completed Not Available Not Available Not Available ph top bu na met capsules 03/07 completed Not Available Not Available Not Available advair diskus 250-50 mcg/dose aepb 03/28 completed Not Available Not Available Not Available Prescript ion - Prior Authoriza tion Request active Not Available Not Available Not Available monteluka st sodium 10 mg tabs 11/30 completed Not Available Not Available Not Available donepezil hcl 5 mg tabs 11/30 completed Not Available Not Available Not Available albuterol sulfate 1.25 mg/3ml nebu active Not Available Not Available Not Available fluad 8663-8043 .5 ml mehrdad 06/11 completed Not Available Not Available Not Available sulfameth oxazole/t rimethopr im ds 800-160 mg tabs active Not Available Not Available Not Available hydrocodo ne/acetam inophen 5-325 mgtabs active Not Available Not Available Not Available fluzone high-dose pf 1021-0065 .5 ml mehrdad 06/03 completed Not Available Not Available Not Available phen top 3 75 23mg sr caps 03/07 completed Not Available Not Available Not Available atorvasta tin calcium 10 mg tabs active Not Available Not Available Not Available mupirocin 2 % oint 03/28 completed Not Available Not Available Not Available albuterol sulfate 0.63 mg/3 mL solution for nebulizat ion Inhale 3 mL as needed by inhalati on route. active Not Available Not Available No t Available ipratropi um 0.5 mg-albute rol 3 mg (2.5 mg base)/3 mL nebulizat ion soln INHALE 3 ML EVERY 6 HOURS BY NEBULIZA TION ROUTE. 03/26 completed Not Available Not Available Not Available donepezil 5 mg tablet TAKE 1 TABLET BY MOUTH EVERY DAY IN THE EVENING 11/30 completed Not Available Not Available Not Available atorvasta tin 10 mg tablet Take 1 tablet every day by oral route. active Not Available Not Available No t Available Patanol 0.1 % eye drops INSTILL 1 DROP INTO EYES BY OPHTHALM IC ROUTE 2 TIMES PER DAY AT AN INTERVAL OF 6 TO 8 HOURS 2015 active Not Available Not Available Not Avai lable albuterol sulfate 1.25 mg/3 mL solution for nebulizat ion USE 1 VIAL 4 TIMES A DAY BY INHALATI ON active Not Available Not Available No t Available hydrocodo ne 5 mg-acetam inophen 325 mg tablet TAKE 1 TABLET BY MOUTH EVERY 4-6 HOURS NEEDED active Not Available Not Available No t Available fluconazo le 200 mg tablet TAKE 1 TABLET BY MOUTH EVERY DAY 08/04 completed Not Available Not Available Not Available meloxicam 15 mg tablet 1 PO QD 2015 active Not Available Not Available Not Avai lable sucralfat e 1 gram tablet TAKE 2 TABLETS BY MOUTH TWICE A DAY 03/26 completed Not Available Not Available Not Available phentermi ne 37.5 mg tablet TAKE 1 TABLET BY MOUTH EVERY DAY IN THE MORNING 03/07 completed Not Available Not Available Not Available ciproflox acin 500 mg tablet TAKE 1 TABLET BY MOUTH TWICE A DAY 08/04 completed Not Available Not Available Not Available sulfameth oxazole 800 mg-trimet hoprim 160 mg tablet TAKE 1 TABLET BY MOUTH TWICE A DAY FOR 7 DAYS active Not Available Not Available No t Available aspirin 81 mg tablet,de layed release Take 1 tablet every day by oral route. 02/09 completed Not Available Not Available Not Available prednison e 10 mg tablets in a dose pack TAKE DIRECTED active Not Available Not Available No t Available cefadroxi l 500 mg capsule TAKE 1 TAB BY MOUTH TWICE A DAY 02/09 completed Not Available Not Available Not Available oxycodone -acetamin ophen 5 mg-325 mg tablet TAKE 1-2 TABLETS BY MOUTH EVERY 4-6 HOURS NEEDED 06/21 completed Not Available Not Available Not Available terbinafi ne HCl 250 mg tablet TAKE 1 TABLET BY MOUTH EVERY DAY 03/26 completed Not Available Not Available Not Available alprazola m 0.25 mg tablet Take 1 tablet twice a day by oral route for 10 days. 03/10 completed Not Available Not Available Not Available cephalexi n 500 mg capsule TAKE 1 CAPSULE BY MOUTH TWICE A DAY 09/07 completed Not Available Not Available Not Available pantopraz ole 40 mg tablet,de layed release TAKE 1 CAPSULE BY MOUTH EVERY DAY 03/10 completed Not Available Not Available Not Available IBU 400 mg tablet Take 1 tablet 1 time a day 03/26 completed Not Available Not Available Not Available tobramyci n 0.3 % eye drops INSTILL 1 DROP INTO AFFECTED EYE(S) BY OPHTHALM IC ROUTE EVERY 4-6 HOURS FOR 5 DAYS 11/07 completed Not Available Not Available Not Available ranitidin e 150 mg tablet TAKE 1 TABLET(S ) EVERY DAY BY ORAL ROUTE. 06/21 completed Not Available Not Available Not Available polymyxin B sulfate 10,000 unit-trim ethoprim 1 mg/mL eye drops INSTILL 2 DROP INTO AFFECTED EYE(S) BY OPHTHALM IC ROUTE EVERY 6 HOURS FOR 5 DAYS 02/09 completed Not Available Not Available Not Available omeprazol e 20 mg capsule,d elayed release TAKE 1 CAPSULE BY MOUTH TWICE A DAY active Not Available Not Available No t Available monteluka st 10 mg tablet TAKE 1 TABLET S EVERY DAY BY ORAL ROUTE 11/30 completed Not Available Not Available Not Available mupirocin 2 % topical ointment APPLY 1-2 TIMES DAILY TO BIOPSY SITES UNTIL HEALED 11/07 completed Not Available Not Available Not Available levofloxa amaris 500 mg tablet TAKE 1 TABLET(S ) EVERY 24 HOURS BY ORAL ROUTE FOR 10 DAYS. active Not Available Not Available No t Available levofloxa amaris 750 mg tablet TAKE 1 TABLET BY MOUTH EVERY DAY FOR 7 DAYS active Not Available Not Available No t Available albuterol sulfate HFA 90 mcg/actua tion aerosol inhaler INHALE 2 PUFFS EVERY 6 TO 8 HOURS active Not Available Not Available No t Available Vitamin D2 1,250 mcg (50,000 unit) capsule TAKE ONE CAPSULE TWICE WEEKLY FOR 4 WEEKS,DE CREASE 1 TAB ONCE WEEKLY X4 WEEKS,TH EN 1 TABLET MONTHLY 10/12 completed Not Available Not Available Not Available fluticaso ne propionat e 50 mcg/actua tion nasal spray,surya pension 1 SPRAY IN EACH NOSTRIL BID active Not Available Not Available No t Available galantami ne 8 mg tablet TAKE 1 TABLET BY MOUTH TWICE A DAY active Not Available Not Available No t Available Zetia 10 mg tablet Take 1 tablet every day by oral route. active Not Available Not Available No t Available Prilosec OTC 20 mg tablet,de layed release Take 1 tablet twice a day by oral route for 30 days. 03/26 completed Not Available Not Available Not Available Cialis 5 mg tablet Take 1 tablet as needed by oral route. 02/19 completed Not Available Not Available Not Available Namenda 5 mg tablet Take 1 tab PO QD x 14 days then 1 PO BID 02/14 completed Not Available Not Available Not Available Gloria-D 24 Hour 180 mg-240 mg tablet,ex tended release TAKE 1 TABLET BY MOUTH EVERY DAY 11/30 completed Not Available Not Available Not Available melatonin take 1 tab hs 03/26 completed Not Available Not Available Not Available levocetir izine 5 mg tablet TAKE 1 TABLET BY MOUTH EVERY DAY active PATIENT WILL USE FEXOFENA DINE INSTEAD. Not Available Not Available Not Available Voltaren 1 % topical gel APPLY 2 GRAM TO THE AFFECTED AREA(S) BY TOPICAL ROUTE 4 TIMES PER DAY 09/04 completed Not Available Not Available Not Available Zipsor 25 mg capsule Take 1 capsule every day by oral route for 30 days. 2019 active Not Available Not Available Not Avai lable Dexilant 60 mg capsule, delayed release Take 1 capsule every day by oral route for 30 days. 2019 active Not Available Not Available Not Avai lable Livalo 4 mg tablet Take 1 tablet every day by oral route. 2014 active Not Available Not Available Not Avai lable Gloria Allergy 180 mg tablet Take 1 tablet every day by oral route. active Not Available Not Available No t Available Qsymia 3.75 mg-23 mg capsule, extended release TAKE 1 CAPSULE BY MOUTH EVERY DAY 08/04 completed Not Available Not Available Not Available Qsymia 7.5 mg-46 mg capsule, extended release TAKE ONE CAPSULE BY MOUTH EVERY DAY active PATIENT WILL USE FEXOFENA DINE INSTEAD. Not Available Not Available Not Available memantine 7 mg capsule sprinkle, extended release 24hr Take 1 capsule every day by oral route for 7 days. 11/07 completed Not Available Not Available Not Available Flulaval 7581-9585 45 mcg (15 mcg x 3)/0.5 mL intramusc ular suspensio n active Not Available Not Available Not Available Anoro Ellipta 62.5 mcg-25 mcg/actua tion powder for inhalatio n Inhale 1 puff every day by inhalati on route for 90 days. 2015 active Not Available Not Available Not Avai lable Fluvirin 8810-9593 45 mcg (15 mcg x 3)/0.5 mL intramusc ular suspensio n INJECT 0.5 ML INTRAMUS CULARLY DIRECTED . active Not Available Not Available No t Available Fluzone High-Dose 2014- (PF) 180 mcg/0.5 mL intramusc ular syringe active Not Available Not Available Not Available Fluzone High-Dose 4656-0756 (PF) 180 mcg/0.5 mL intramusc ular syringe ADM 0.5ML IM UTD active Not Available Not Available No t Available Fluzone High-Dose 9213-7497 (PF) 180 mcg/0.5 mL intramusc ular syringe ADM 0.5ML IM UTD 06/03 completed Not Available Not Available Not Available Wixela Inhub 250 mcg-50 mcg/dose powder for inhalatio n INHALE 1 PUFF BY MOUTH TWICE A DAY active Not Available Not Available No t Available Fluad 2018- 65yr up(PF)45 mcg(15 mcgx3)/0. 5 mL intramusc ular syringe ADM 0.5ML IM UTD 06/21 completed Not Available Not Available Not Available Fluad Quad 1395-2976 (65yr up)(PF) 60 mcg (15 mcg x 4)/0.5mL IM syringe ADM 0.5ML IM UTD 08/04 completed Not Available Not Available Not Available Vitals Date Recorded Body height Body mass index (BMI) Body weight Heart rate Respiratory rate Body temperature Pain severity - 0-10 verbal numeric rating [Score] - Reported Systolic blood pressure Diastolic blood pressure Provider Name and Address Organization Details Last Updated DateTime 1 163.83 cm 33.9 kg/m2 38649.2 7 g 45 /min 18 /min 98 [degF] 0 174 mm[Hg] 84 mm[Hg] MAURO Byrd [facility] [place] 13:22:04 Date Recorded Body height Body mass index (BMI) Body weight Heart rate Respiratory rate Body temperature Systolic blood pressure Diastolic blood pressure Provider Name and Address Organization Details Last Updated DateTime 163.83 cm 33.8 kg/m2 48627.4 7 g 87 /min 18 /min 97.9 [degF] 184 mm[Hg] 96 mm[Hg] MAURO Byrd [facility] [place] 14:04:53 Date Recorded Body height Provider Name an d Address Organization Details Last Updated DateTime 10/26/2021 163.83 cm Tima Decker [address] 10/26/2021 15:43:05 Date Recorded Body height Provider Name an d Address Organization Details Last Updated DateTime 11/23/2021 163.83 cm Tima Decker [address] 11/23/2021 13:16:30 Date Recorded Body height Provider Name an d Address Organization Details Last Updated DateTime 03/26/2022 163.83 cm Georgina Fish LPN [address] 03/26/2022 15:27:17 Social History Question Answer Notes LastModified by Organizat ion Details LastModified Time Tobacco Smoking Status Former Smoker Quit 1964 Aury Sandoval CMA [address] 09/04/2019 13:22:36 Do You Have An Advance Directive? No Information not available 02/09/2017 What Is Your Level Of Alcohol Consumption? Occasional [email or web address] Information not available 02/16/2013 How Many Times Per Week Do You Consume Alcohol? 1-2 Times Per Week [email or web address] Information not available 03/18/2021 Are You Blind Or Do You Have Difficulty Seeing? No Information not available 02/09/2017 What Is Your Level Of Caffeine Consumption? None [email or web address] Information not available 03/18/2021 Are You Deaf Or Do You Have Serious Difficulty Hearing? No Information not available 02/09/2017 What Type Of Diet Are You Following? 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 1-5yearssinkevin bond [email or web address] Information not available 03/18/2021 Live Alone Or With Others? With Others [email or web address] Information not available 04/23/2013 Do You Feel Safe At Home? Yes Information not available 02/09/2017 Marital Status [email or web address] Informati on not available 02/16/2013 Do You Have A Medical Power Of Ethylene Plant Helper? No [email or web address] Information not available 03/18/2021 What Was The Date Of Your Most Recent Tobacco Screening? 11/23/2021 [email or web address] Information not available 11/23/2021 How Many Children Do You Have? 2 Information not available 12/25/2013 What Is Your Current Pack Years? 10packyears [email or web address] Information not available 03/18/2021 Seat Belts Used Routinely Yes Information not available 02/09/2017 Smoke Alarm In Home Yes Information not available 02/09/2017 At What Age Did You Start Smoking Tobacco? 16 Information not available 12/25/2013 How Much Tobacco Do You Smoke? 0.5 PPD [email or web address] Information not available 09/04/2019 General Stress Level Low [email or web address] Information not available 02/16/2013 Do You Use Any Illicit Or Recreational Drugs? No [email or web address] Information not available 03/18/2021 Do You Use Sunscreen Routinely? No Information not available 02/09/2017 Has Tobacco Cessation Counseling Been Provided? No Information not available 03/18/2021 How Many Years Have You Smoked Tobacco? 2 [email or web address] Information not available 09/04/2019 Do You Or Have You Ever Used Any Other Forms Of Tobacco Or Nicotine? No [email or web address] Information not available 03/18/2021 Sex: Unknown Functional Status Question Answer Note LastModified by Organizat ion Details LastModified Time Do you have difficulty walking or climbing stairs? No Information not available 02/09/2017 Do you have difficulty doing errands alone? No Information not available 02/09/2017 Do you have difficulty dressing or bathing? No Information not available 02/09/2017 What is your exercise level? Occasional [email or web address] Information not available 02/16/2013 Mental Status Question Answer Note LastModified by Organization D etails LastModified Time Do you have difficulty concentrating, remembering or making decisions? No Information no t available 02/09/2017 Family History Relationship Description Onset Age of this Age Resolved Age Notes LastModified by Organization Details LastModified Time Brother Alive [email or web address] Not available 07/22/2016 16:28:24 Father Chronic cerebrovascu lar accident 71 [email or web address] Not available 11/2016 16:28:24 Mother Old-age 87 [email or web address] Not available 07/22/2016 16:28:24 Notes:2 children alive and w ell Medical History Condition Response GERD/Reflux Y Hepatitis Y Hyperlipidemia Y Asthma Y Immunizations Vaccine Type Date Status Note Provider Nam e and Address Organization Details Recorded Time Influenza, split virus, trivalent, preservative 4 completed Liseth Le RMA null, [facility] [place] 06/11/2019 13:01:11 Influenza, high-dose, trivalent, PF 5 completed Not Available [facility] 08/18/2019 02:11:28 Pneumococcal conjugate PCV 13 5 completed Tracy Reagan R[place] null, [place] [facility] [place] 03/18/2021 13:14:30 zoster live 0 completed Tracy Reagan RMA null, [place] - [facility] [place] 03/18/2021 13:14:31 pneumococcal, unspecified formulation 0 completed Tracy Reagan RMA null, [place] - [facility] [place] 03/18/2021 13:14:30 Influenza, split virus, trivalent, preservative 3 completed Tracy Reagan RMA null, [place] - [facility] [place] 03/18/2021 13:14:31 tetanus toxoid, unspecified formulation 0 completed Tracy Reagan RMA null, [place] - [facility] [place] 03/18/2021 13:14:30 Influenza, split virus, trivalent, preservative 4 completed Tracy Reagan RMA null, [facility] [place] 03/18/2021 13:14:30 pneumococcal, unspecified formulation 0 completed Scarlett Jacques, SHARE HOLDER null, [address] 02/09/2017 13:19:19 tetanus toxoid, unspecified formulation 0 completed Scarlett Jacques, SHARE HOLDER null, [facility] [place] 02/09/2017 13:19:19 Influenza, split virus, trivalent, preservative 3 completed Scarlett Jacques, SHARE HOLDER null, [address] 02/09/2017 13:19:19 Influenza, split virus, quadrivalent, preservative 3 completed Not Available [facility] 08/18/2019 02:11:10 Influenza, split virus, trivalent, preservative 4 completed Not Available [facility] 08/18/2019 02:11:10 Influenza, split virus, trivalent, preservative 2 completed Not Available [facility] 08/18/2019 02:11:10 zoster live 0 completed Scarlett Hanna SHARE HOLDER null, [address] 02/09/2017 13:19:19 Past Encounters Encounter ID Performer Location Encounter Start Date Encounter Closed Date Diagnosis/Indication Diagnosis SNOMED-CT Code Diagnosis ICD10 Code Diagnosis Note [id number] [facility] [address] [place] [address] 01/29/2013 15:24:44 01/30/2013 09:26:15 [id number] [facility] [address] [place] [address] 04/23/2013 15:19:32 04/23/2013 16:51:22 Fatigue 61311200 Cough 86023799 [id number] [facility] [address] [place] [address] 06/04/2013 10:16:56 06/04/2013 12:45:31 Lipoma of skin 902729635 [id number] [facility] [address] [place] [address] 06/18/2013 15:46:39 06/19/2013 09:56:43 Lipoma of skin 378263183 [id number] William Cueva Cecilio [facility] [address] [place] [address] 11/19/2013 15:54:48 11/19/2013 16:58:21 Asthma 871811135 Acute bronchitis 49395600 Cough 69173303 [id number] [facility] [address] [place] [address] 12/25/2013 13:05:51 12/26/2013 16:36:58 Pure hypercholesterolemia 061190004 Adult heal th examination 296971811 Hip pain 77697745 Sleep apnea 89263568 Allergic rhinitis 13482944 Gastroesop hageal reflux disease 738836439 Body mass index 30+ - obesity 077246725 Screening for malignant neoplasm of rectum 325023028 [id number] MAURO Seth [facility] [address] [place] [address] 04/04/2014 13:07:47 04/04/2014 14:33:36 Allergic rhinitis 95927708 Skin lesion 88048722 [id number] Jacki Mayen MD [facility] [address] [place] [address] 01/07/2015 13:02:06 01/07/2015 17:27:58 Adult health examination 164085321 Asthma 391724289 Sleep apnea 67437291 Memory impairment 901264248 Body mass index 30+ - obesity 966885296 Administra tion of pneumococcal vaccine 91522744 Screening for malignant neoplasm of rectum 595901045 [id number] [facility] [address] [place] [address] 01/28/2015 10:44:03 01/28/2015 11:23:40 Pure hypercholesterolemia 927493825 Medication monitoring 909952034 [id number] [facility] [address] [facility] [place] [address] 04/01/2015 10:00:35 04/01/2015 17:36:22 Pure hypercholesterolemia 655333028 Senile hyperkeratosis 675689829 [id number] Jacki Mayen MD [facility] [address] [facility] [place] [place] [address] 07/07/2015 13:07:15 07/07/2015 14:00:36 Sleep apnea 77974720 G47.30 Obesity 026256854 E66.9 [id number] Jacki Mayen MD [facility] [address] [facility] [place] [place] [address] 08/07/2015 13:29:36 08/07/2015 15:17:15 Upper respiratory infection 12499830 J06.9 Cough 90342627 R05 [id number] [facility] [address] [address] 09/18/2015 14:21:19 09/18/2015 16:17:56 Pain in thumb 400812898 M79.645 Hand pain 13995776 M79.6 42 [id number] Jacki Mayen MD [facility] [address] [address] 10/08/2015 08:56:56 10/08/2015 11:29:36 Asthma 604358321 J45.909 Allergic rhinitis 135949 04 J30.9 Cough 92073471 R05 Allergic conjunctivitis 437407301 H10.13 Acute bronchitis 3453141 2 J20.9 [id number] Jacki Mayen MD [facility] [address] [facility] [place] [place] [address] 11/20/2015 14:08:59 11/20/2015 15:42:38 Allergic rhinitis 26941536 J30.9 Allergic conjunctivitis 561623206 H10.13 Asthma 091510431 J45.90 9 [id number] [facility] [address] [place] [address] 12/08/2015 09:00:19 12/08/2015 13:22:40 Tinea sherriuris 832878862 B35.6 [id number] Jacki Mayen MD [facility] [address] [place] [address] 01/12/2016 12:58:53 01/12/2016 16:35:25 Adult health examination 690844429 Z00.01 Z72.89 Z79.899 N42.9 Z12.5 E78.5 E55.9 Fatigue 08434813 R53.83 Poor short -term memory 741019424 R41.3 Acute félix l impairment 780725142 N28.9 Essential hypertension 45901829 I10 Screening for malignant neoplasm of rectum 623367574 Z12.12 Pain in thumb 273658371 M79.645 Hypercholesterolemia 136 62291 E78.0 Sleep apnea 72762677 G47 .30 [id number] Jacki Mayen MD [facility] [address] [place] [address] 02/11/2016 10:45:29 02/11/2016 13:36:44 Essential hypertension 63642893 I10 Hypogonadism 13614732 E2 9.1 [id number] [facility] [address] [place] [address] 03/04/2016 15:27:05 03/04/2016 16:45:58 Tinea todds 022234342 B35.6 Palpitations 24566059 R0 0.2 [id number] [facility] [address] [place] [address] 03/11/2016 10:00:58 03/11/2016 15:30:44 Palpitations 80268252 R00.2 [id number] [facility] [address] [place] [address] 04/14/2016 14:46:03 04/14/2016 16:43:04 Premature atrial contraction 323844553 I49.1 Ventricula r premature beats 28315393 I49.3 Transient cerebral ischemia 932443567 G45.9 [id number] Robert Hernandez MD [facility] [facility] [address] [facility] [address] [place] [address] 05/24/2016 15:03:00 05/24/2016 16:02:33 [id number] Jacki Mayen MD [facility] [address] [place] [place] [address] 06/29/2016 14:05:17 06/29/2016 16:19:26 Acute bronchitis 43248160 J20.9 Asthma 541960240 J45.90 9 Cough 70835766 R05 [id number] Jacki Mayen MD [facility] [address] [place] [address] 07/20/2016 11:13:42 07/20/2016 14:25:53 Foreign body in eye 2671307115 39800 H44.083 [id number] Jacki Mayen MD [facility] [address] [place] [address] 07/22/2016 15:23:30 07/22/2016 16:58:21 [facility] [id number] H00.13 [id number] Jacki Mayen MD [facility] [address] [place] [address] 02/09/2017 12:14:27 02/09/2017 15:00:48 Adult health examination 499181868 Z00.00 Screening for disorder 968825516 Z13.9 Sleep apnea 15812528 G47 .30 Adverse re action to drug 58948325 T88.7XXA On Zocor- feels bad Pain in right foot 79714 82151 07329 M79.671 Vitamin D deficiency 347 30265 E55.9 Osteoarthritis 245430246 M19.90 Poor short -term memory 809195669 R41.3 Impotence 575612899 N52. 9 Screening for malignant neoplasm of colon 472417842 Z12.11 [id number] Jacki Mayen MD [facility] [address] [place] [address] 06/03/2017 10:23:50 06/03/2017 13:16:31 Obesity 766638949 E66.9 Poor short -term memory 344018074 R41.3 [id number] Jacki Mayen MD [facility] [address] [place] [address] 07/06/2017 15:44:58 07/06/2017 16:36:07 Memory impairment 077163112 R41.3 Medication monitoring 39 3762426 Z51.81 Obesity 385556643 E66.9 Impotence 621010430 N52. 9 [id number] Jacki Mayen MD [facility] [address] [facility] [place] [address] 10/12/2017 09:57:08 10/12/2017 10:43:43 Essential hypertension 06832773 I10 Candidiasis of skin 4988 3006 B37.2 Generalize d anxiety disorder 01328545 F41.1 Allergic rhinitis 050702 04 J30.9 [id number] Jacki Mayen MD [facility] [address] [facility] [place] [place] [address] 12/21/2017 15:14:38 12/21/2017 16:10:50 Difficulty maintaining weight loss 598533200 E66.9 Obesity 779760687 E66.9 [id number] Jacki Mayen MD [facility] [address] [place] [address] 03/07/2018 13:15:21 03/07/2018 15:22:34 Adult health examination 351756298 Z00.00 Screening for disorder 048349757 Z13.89 Obesity 855404120 E66.9 Pure hypercholesterolemia 771978549 E78.00 Gastroesop hageal reflux disease 808162303 K21.9 Vitamin D deficiency 347 11878 E55.9 Asthma 677075112 J45.90 9 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 Generalize d anxiety disorder 57123427 F41.1 Sleep apnea 73783998 G47 .30 Screening for malignant neoplasm of colon 099483010 Z12.11 Z12.12 [id number] Jacki Mayen MD [facility] [address] [place] [address] 05/16/2018 08:17:50 05/16/2018 11:06:26 Obesity 163911683 E66.9 Sleep apnea 17961732 G47 .30 [id number] Jacki Mayen MD [facility] [address] [place] [address] 06/16/2018 10:07:32 06/16/2018 11:19:36 Gout 07962061 M10.9 Memory impairment 141031 006 R41.3 [id number] Jacki Mayen MD [facility] [address] [place] [address] 08/14/2018 09:26:24 08/14/2018 12:32:33 Generalized anxiety disorder 32389369 F41.1 Memory impairment 740329 006 R41.3 Palpitations 88703790 R0 0.2 [id number] Jacki Mayen MD [facility] [address] [place] [address] 09/04/2018 11:02:21 09/04/2018 13:03:57 Allergic rhinitis 15465889 J30.9 Palpitations 59230636 R0 0.2 Memory impairment 302884 006 R41.3 [id number] [facility] [address] [place] [address] 10/13/2018 14:18:19 10/13/2018 16:54:25 Ventricular tachycardia 04897922 I47.2 Palpitations 50426055 R0 0.2 Lesion of skin of face 3075326341 06 L98.9 [id number] Jacki Mayen MD [facility] [address] [place] [address] 11/30/2018 09:28:23 11/30/2018 13:21:54 Nonsustained ventricular tachycardia 241777767 I47.2 Left ventr icular hypertrophy 74906095 I51.7 Memory impairment 518389 006 R41.3 Insomnia 549804864 G47.0 0 Allergic rhinitis 294837 04 J30.9 [id number] Jacki Mayen MD [facility] [address] [place] [address] 12/28/2018 13:20:03 12/28/2018 15:21:08 Candidiasis of skin 55078081 B37.2 Memory impairment 984052 006 R41.3 Wound of skin 704796305 T14.8XXA Degenerati ve joint disease of hand 30021973 M19.040 [id number] Jacki Mayen MD [facility] [address] [place] [address] 03/02/2019 14:32:33 03/02/2019 16:21:35 Impetigo 12588052 L01.00 [id number] Jacki Mayen MD [facility] [address] [place] [address] 03/12/2019 09:36:33 03/12/2019 13:19:23 Adult health examination 013203602 Z00.00 Screening for disorder 624010901 Z13.89 Depression screening 171 386919 Z13.31 Pure hypercholesterolemia 831666352 E78.00 Essential hypertension 70596675 I10 Fatigue 64346633 R53.83 Screening for malignant neoplasm of prostate 760973447 Z12.5 Memory impairment 561407 006 R41.3 Medication monitoring 39 7900422 Z51.81 Generalize d anxiety disorder 17123981 F41.1 Low back pain 878348686 M54.5 Pain in right thumb 1076 929122 280029 M79.644 Dementia 19090017 F03.90 Asthma 047649011 J45.90 9 Screening for malignant neoplasm of colon 901521103 Z12.11 Z12.12 [id number] Jacki Mayen MD [facility] [address] [place] [place] [address] 04/16/2019 08:58:10 04/16/2019 10:23:22 Pain in thumb 707381119 M79.623 [id number] Raleigh Downey MD [facility] [address] [place] [address] 04/26/2019 12:09:46 04/26/2019 13:01:13 Retained foreign body in eye 68111757 H44.709 flushed clear [id number] Jacki Mayen MD [facility] [address] [place] [address] 06/04/2019 13:05:17 06/04/2019 15:30:04 Ingrowing nail 819405700 L60.0 [id number] Jacki Mayen MD [facility] [address] [place] [place] [address] 06/11/2019 12:46:50 06/11/2019 14:29:07 Hip pain 07345731 M25.559 Hand pain 69818711 M79.6 41 M10.9 Fatigue 04646525 R53.83 Nausea 091813508 R11.0 Abdominal pain 02002869 R10.9 Indigestion 416535597 K3 0 Dementia 52448493 F03.90 Anxiety 50301891 F41.9 Muscle weakness 13918458 M62.81 [id number] [facility] [address] [place] [address] 06/21/2019 10:37:40 06/21/2019 13:07:55 Fatigue 36172696 R53.83 Abdominal pain 60308911 R10.9 Muscle weakness 06717894 M62.81 [id number] [facility] [address] [place] [address] 06/29/2019 11:09:30 06/29/2019 14:23:48 Postoperative wound infection 69432301 T81.40XA right hand [id number] [facility] [address] [place] [address] 07/26/2019 12:50:00 07/26/2019 13:52:47 Pain in throat 160374984 R07.0 Pharyngitis 389333373 J0 2.9 Lesion of skin of face 4069927673 06 L98.9 [id number] BAKARI RAHMAN MD [facility] [address] [place] [address] 09/04/2019 12:42:04 09/04/2019 13:39:11 Basal cell carcinoma of skin 499656682 C44.91 [id number] Jacki Mayen MD [facility] [address] [place] [address] 09/11/2019 15:07:19 09/11/2019 16:27:39 Asthma 148080037 J45.909 Poor short -term memory 574602076 R41.3 [id number] Jacki Mayen MD [facility] [address] [place] [address] 11/08/2019 08:14:39 11/08/2019 09:38:58 Acute gastroenteritis 19063045 K52.9 Nausea and vomiting 1693 2000 R11.2 [id number] Jacki Mayen MD [facility] [address] [place] [address] 12/11/2019 14:05:02 12/11/2019 15:39:56 Abdominal pain 89409343 R10.9 Nausea 749632330 R11.0 Muscle weakness 86003613 M62.81 Fatigue 36434997 R53.83 Diarrhea 21076021 R19.7 Gastritis 3483566 K29.70 Dizziness 090463534 R42 [id number] BAKARI RAHMAN MD [facility] [address] [place] [address] 12/14/2019 14:08:04 12/14/2019 14:41:59 Basal cell carcinoma of skin 529198472 C44.91 [id number] Jacki Mayen MD [facility] [address] [place] [address] 01/15/2020 10:37:28 01/15/2020 12:40:42 Gastroesophageal reflux disease 745876236 K21.9 Gastric ulcer 652958430 K25.9 Abdominal pain 23903846 R10.9 [id number] Jacki Mayen MD [facility] [address] [place] [address] 03/10/2020 08:18:12 03/10/2020 13:09:14 Pain in both feet 5728402138 1531066 M79.671 M79.672 Testicular hypofunction 509561940 E29.1 Pure hypercholesterolemia 387970228 E78.00 Vitamin D deficiency 347 53881 E55.9 Fatigue 82153040 R53.83 Pain in left knee 422841 5094 94551 M25.562 [id number] Jacki Mayen MD [facility] [address] [place] [address] 03/17/2020 13:03:43 03/17/2020 14:59:03 Adult health examination 425866195 Z00.00 Screening for disorder 008507622 Z13.89 Depression screening 171 133632 Z13.31 Gastroesop hageal reflux disease 515484209 K21.9 Generalize d anxiety disorder 32179686 F41.1 Medication monitoring 39 1788219 Z51.81 Asthma 757356757 J45.90 9 Dementia 33307832 F03.90 [id number] Jacki Mayen MD [facility] [address] [place] [address] 03/27/2020 15:03:52 03/27/2020 15:37:08 Pain in left knee 4644335473 06445 M25.562 [id number] [facility] [address] [address] [address] 04/17/2020 15:50:16 04/17/2020 16:45:04 Prostate specific antigen above reference range 022391892 R97.20 Prostate mass 438520449 R19.09 [id number] Jacki Mayen MD [facility] [address] [place] [place] [address] 07/14/2020 14:09:45 07/14/2020 16:03:43 Onychomycosis 236852230 B35.1 [id number] Jacki Mayen MD [facility] [address] [place] [address] 08/04/2020 11:04:06 08/04/2020 12:41:31 Polyp of colon 25317769 K63.5 Pruritus ani 20170641 L2 9.0 [id number] Jacki Mayen MD [facility] [address] [place] [address] 08/11/2020 15:48:23 08/11/2020 17:03:27 Dark stools 23594810 R19.5 Tinea cruris 897256207 B 35.6 [id number] Jacki Mayen MD [facility] [address] [place] [address] 08/20/2020 13:30:52 08/20/2020 14:43:47 Onychomycosis 144830831 B35.1 Asthma 075440835 J45.90 9 Essential hypertension 72120213 I10 [id number] Jacki Mayen MD [facility] [address] [place] [address] 08/25/2020 13:30:52 08/25/2020 15:10:46 Peptic ulcer 40831583 K27.9 Indigestion 397504602 K3 0 Nausea 748640297 R11.0 [id number] Jacki Mayen MD [facility] [address] [place] [address] 09/23/2020 13:30:49 09/23/2020 15:53:09 Peptic ulcer 78061034 K27.9 Gastroesop hageal reflux disease without esophagitis 011740279 K21.9 [id number] Jacki Mayen MD [facility] [address] [place] [address] 12/24/2020 13:36:18 12/24/2020 16:07:51 Gastroesophageal reflux disease 682558546 K21.9 Tinea corporis 79014303 B35.4 [id number] Jacki Mayen MD [facility] [address] [place] [address] 03/18/2021 12:49:08 03/18/2021 14:19:00 Adult health examination 176439515 Z00.00 Screening for disorder 619824630 Z13.89 Depression screening 171 734268 Z13.31 Pure hypercholesterolemia 882659584 E78.00 Vitamin D deficiency 347 54007 E55.9 Testicular hypofunction 951974358 E29.1 Fatigue 85367242 R53.83 Gastroesop hageal reflux disease 109975960 K21.9 Memory impairment 627511 006 R41.3 Obesity [id number] E66.9 Essential hypertension [id number] I10 [id number] Jacki Mayen MD [facility] [address] [place] [address] 04/10/2021 13:50:11 04/10/2021 15:03:21 Constipation 67316023 K59.00 [id number] BAKARI RAHMAN MD [facility] [address] [facility] [place] [address] 10/26/2021 15:25:17 10/26/2021 16:02:03 Basal cell carcinoma of skin 432979303 C44.91 Skin lesion 89976646 L98 .9 [id number] BAKARI RAHMAN MD [facility] [address] [facility] [place] [address] 11/23/2021 13:11:11 11/23/2021 13:45:52 Basal cell carcinoma of skin 308417470 C44.91 Skin lesion 63716700 L98 .9 [id number] BAKARI RAHMAN MD [facility] [address] [facility] [place] [address] 03/26/2022 15:17:14 03/26/2022 15:27:56 Basal cell carcinoma of skin 703101966 C44.91 Health Concerns Section Related Observation LastModified by Organization Detai ls LastModified Time None Recorded Concern Status LastModified by Organization Details LastModified Time None Recorded Advance Directives Directive N: Payers Encounter Date Sequence Insurance Name Policy Number Policy Glass Covered Member ID Glass Member ID Guarantor Name 03/18/2021 1 [employer] (MEDICARE REPLACEMENT HMO) Oswaldo Young [id number] 1 Oswaldo Young 04/10/2021 1 [employer] (MEDICARE REPLACEMENT HMO) Oswaldo Young [id number] Oswaldo Young 10/26/2021 1 [employer] (MEDICARE REPLACEMENT HMO) Oswaldo Young [id number] Oswaldo Young 11/23/2021 1 [employer] (MEDICARE REPLACEMENT HMO) Oswaldo Young [id number] Oswaldo Young 03/26/2022 1 [employer] (MEDICARE REPLACEMENT HMO) Oswaldo Young [id number] Oswaldo Young Notes Date Note Type Note Provider Name and Address Organization Details Recorded Time 03/18/2021 text/html 75-year-old whit e male presents today for his medical annual wellness exam he has dementia and is a poor historian he tells me apart that he is feeling rather well and has no major new complaints. He would like to discuss his failing memory and asthma Jacki Mayen MD [address] [place] [address],[address], [place], [address], [facility] [place] 03/18/2021 14:22:16 04/10/2021 text/html This patient is a 75-year-old mildly demented white male who comes in here today for confusing set of circumstances when I walk in the room he says he is here because he wants to talk to me before he sees his urologist when I ask him what he is here for he tells me that he has had a rough go of it with his GI tract over the last 6 days he tells me that he abruptly became constipated and started giving himself fairly high-dose Pepto-Bismol he subsequently developed very itchy a Caryn for which he was putting some sort of topical cream on and then finally yesterday he was able to evacuate his stool and he feels all better now but he wants to discuss this before the urologist checks him which is coming up somehow he believes urologist is related to his colon Jacki Mayen MD [address] [facility] [address], [place], [address], [facility] [place] 04/10/2021 21:06:05 10/26/2021 text/html the patient repo rts that the skin lesion was biopsied on his right cheek. This was found to be a basal cell carcinoma. Who was referred by his primary care provider for definitive excision. The patient also notes having additional skin lesions that he wanted to have addressed. There is a small lesion on the side of his nose and another one on his cheek near his nasolabial fold. These have been present for some time although they seem to be changing on him. He wants to make sure these were not becoming pathologic. BAKARI RAHMAN MD [address], [place], [address], [facility] [place] 10/26/2021 16:24:17 11/23/2021 text/html The patient came in today for removal of the basal cell carcinoma from his right cheek. He also came for biopsy of the lesion on the medial cheek and the right side of the nose. BAKARI RAHMAN MD [address], [place], [address], [facility] [place] 11/23/2021 13:58:19 03/26/2022 text/html The patient was concerned about some mild erythema on his right cheek surgical site. No fevers or chills. No drainage. BAKARI RAHMAN MD [address], [place], [address], [facility] [place] 03/26/2022 15:32:20
--- OUTSIDE RECORDS SUMMARY | 2024-09-17 14:10 | XMS_ITS | Data Portability ---
Author Organization [place] - [facility], Allergy Address [address] [address] Care Team Providers Care Preboarder Name Role Phone HARRIS PENNY Primary Care Provider Assessment Encounter Date Assessment Date Assessment LastModified by Organization Details LastModified Time 02/10/2024 02/10/2024 Patient was referred for evaluation of left parotid nodule. He recently had ultrasound at [facility] showing intraparotid lymph nodes with no concerning features. His physical exam was otherwise benign with intact facial nerve, no palpable masses. No specific intervention is recommended for him at this time. He may follow-up as needed [email or web address] Not available 02/10/2024 14:56:05 Plan of Treatment Reminders Order Date Submit Date Provider Last Modified By Organization Details Last Modified Time Details Appointments None record ed. Lab None record ed. Referral None record ed. Procedures None record ed. Surgeries None record ed. Imaging None record ed. Medication Orders None record ed. Patient TargetsNo targets recorded. Patient InstructionsNo instructions recorded. Reason for Referral None Reported. Results Created Date Observation Date Name Description Value Unit Range Abnormal Flag Note LastModifiedBy Organization Detail LastModifiedTime 03/06/20 24 06/06/2023 imagi ng/di agnos tic resul t No observ ation record ed. [email or web address] Not Available 15:51:14 Result Notes None recorded. 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 Procedures Surgical History Date Name Laterality Status Provider Name and Address Organization Details Recorded Time procedure on wrist completed Ca Dawson [place] - [facility] 02/10/2024 14:09:06 Imaging Results Imaging Date Name Status LastModified by Organiz ation Details LastModified Time 06/06/2023 imaging/diag nostic result completed [email or web address] Information not available 03/06/2024 15:51:14 Procedure Notes None recorded. Medical Equipment None Reported. Allergies No known drug allergies Medications Name Sig Start Date Stop Date Status Note LastModified by Organization Details LastModified Time omeprazole 40 mg capsule,del ayed release TAKE 1 CAPSULE BY MOUTH EVERY DAY active Not Available Not Available No t Available famotidine 20 mg tablet TAKE 1 TABLET BY MOUTH EVERYDAY AT BEDTIME active Not Available Not Available No t Available losartan 50 mg-hydrochl orothiazide 12.5 mg tablet TAKE 1 TABLET BY MOUTH EVERY DAY active Not Available Not Available No t Available finasteride 5 mg tablet TAKE 1 TABLET BY MOUTH EVERY DAY active Not Available Not Available No t Available rosuvastati n 10 mg tablet TAKE 1 TABLET BY MOUTH DAILY active Not Available Not Available No t Available memantine 10 mg tablet TAKE 1 TABLET BY MOUTH TWICE A DAY 02/09 completed Not Available Not Available Not Available memantine 5 mg tablet FOR FIRST 7 DAYS TAKE 1 TABLET ONCE A DAY, THEN 1 TABLET TWICE A DAY [facility] [place] 02/09 completed Not Available Not Available Not Available cholecalcif mahesh (vitamin D3) 50 mcg (2,000 unit) capsule TAKE 1 CAPSULE BY MOUTH EVERY DAY active Not Available Not Available No t Available Vitals Date Recorded Body height Body mass index (BMI) Body weight Provider Name and Address Organization Details Last Updated DateTime 02/10/2024 170.18 cm 34 kg/m2 71612.54 g Ca Dawson [place] [facility] 02/10/2024 14:32:31 Social History None recorded. Functional Status None recorded. Mental Status None recorded. Family History Nothing Reported. Medical History Condition Response Arthritis Y Hypertension Y Past Encounters Encounter ID Performer Location Encounter Start Date Encounter Closed Date Diagnosis/Indication Diagnosis SNOMED-CT Code Diagnosis ICD10 Code Diagnosis Note [id number] ARTURO CONN MD [facility] [address] [place] [address] 02/10/2024 13:39:06 02/10/2024 14:58:39 Neoplasm of uncertain behavior of parotid gland 72712320 D37.030 Health Concerns Section Related Observation LastModified by Organization Detai ls LastModified Time None Recorded Concern Status LastModified by Organization Details LastModified Time None Recorded Advance Directives Directive None Recorded Payers Encounter Date Sequence Insurance Name Policy Number Policy Glass Covered Member ID Glass Member ID Guarantor Name 02/10/2024 1 [employer] (MEDICARE REPLACEMENT HMO) [id number] Oswaldo Young [id number] Oswaldo Young Notes Date Note Type Note Provider Name and Address Organization Details Recorded Time 02/10/2024 text/html new patient referred for parotid massno symptoms of pain in side of necktobacco - in 1960s 10/24/23 [facility] -13 x 6 x 7 mm left intraparotid lymph node, 11 x 5 x 7 mm right intraparotid lymph node 12/11/22 ct cervical spine 4mm hypodensity left parotid retired from [employer] [facility] [employer] [facility] ARTURO CONN MD [address] [facility],[place] [address], [place], [address], [facility] - [facility] 02/10/2024 14:56:17
--- OUTSIDE RECORDS SUMMARY | 2024-09-17 14:11 | XMS_ITS | Data Portability ---
Author Organization ID - [employer], [employer], [facility] Address [address] [place] [address] Care Team Providers Care Baseball Player Name Role Phone JACKI MAYEN Primary Care Provider Assessment Encounter Date Assessment Date Assessment LastModified by Organization Details LastModified Time 08/06/2021 08/06/2021 Uncle by ptosis of the right first fingernail debridement with Spanish toenail lateral and binocular microscope down to healthy tissue local care including vinegar or what ever drops he got at the pharmacy but Lamisil 250 daily for 90 days. Reassess in 3 months to see if it is better [email or web address] Not available 08/06/2021 12:41:02 08/20/2021 08/20/2021 Basal cell carcinoma the face recommend plastic surgical removal other lesions are benign. Make necessary referral [email or web address] Not available 08/20/2021 14:35:09 03/24/2022 03/24/2022 1. Hyperlipidemi a, considering his dementia and existing cognitive dysfunction will defer treatment with statin drugs. 2. Elevated PSA with hematuria, his PSA remains >6. Will refer to urologist. 3. GERD, this is quiet at this time and managed with omeprazole 20 mg up to two times daily. Continue and follow-up as needed. 4. Dementia, worsening in the last year. We discussed options including medications and the potential for improvement and neurological evaluation at the request of his . He declines treatment at this time. 5. Obesity, he's non-complaint with medical management and has restricted his calories or lost weight. 6. Preventative healthcare discussed. He completed a cologuard on 08/27/21 which was negative. he is up-to-date on vaccines and has requested a flu vaccine today. Risks/benefits, contraindications and risk factors for not receiving vaccine discussed with patient. All questions answered. Verbal understanding and consent given by patient. All available labs, imaging, and old records were reviewed. Anticipatory guidance given. The diagnosis, care plan and expectations for improvement were reviewed. Should symptoms worsen or do not improve, or new concerns, the patient will return to our office. Follow up other ansari as needed. [email or web address] Not available 03/24/2022 14:01:11 Plan of Treatment Reminders Order Date Submit Date Provider Last Modified By Organization Details Last Modified Time Details Appointments None recorded. Lab noninvasive colorectal cancer DNA + occult blood screening, QL, stool 2021 gate5 (Cologuard Orders Only), [address], [address], [place], [address], 22:18:26 Referral urologist referral - Please call the patient to schedule an appointment . 2021 022 [id number] Ricki Ellis MD ([facility]), [address] [place] [address] Rd, [address], [place], [address], 14:53:17 plastic surgeon referral - please call pt to schedule appointment 2021 022 [email or web address] 15 Derian Lopez MD, [address] [place] [address], [facility] [address], [address], 16:27:18 Procedures None recorded. Surgeries None recorded. Imaging None recorded. Medication Orders terbinafine HCl 250 mg tablet 2021 022 [id number] [id number], [address], [address], 10:51:20 Patient TargetsNo targets recorded. Patient Instructions Encounter Date Encounter Id Patient Instructions Last Modified By Organization Details Last Modified Time 03/24/2022 [id number] advance directives: care instructions [email or web address] Not available 03/24/2022 14:01:45 learning about living stokes [id number] Not available 03/24/2022 14:01:45 do not rescuscitate education [email or web address] Not available 03/24/2022 14:01:45 Advance Directives Education w/sample forms for Living Will/Health Care Surrogate [email or web address] Not available 03/24/2022 14:01:45 Reason for Referral Plastic Surgeon Referral for Basal cell carcinoma of skin please call pt to schedule appointment Referring Physician: Jacki Mayen, Pediatric Internal Medicine, Encounter Date: 08/20/2021 Urologist Referral for Prost ate specific antigen above reference range Please call the patient to schedule an appointment. Referring Physician: Jacki Mayen, Pediatric Internal Medicine, Encounter Date: 03/24/2022 Results Created Date Observation Date Name Description Value Unit Range Abnormal Flag Note LastModifiedBy Organization Detail LastModifiedTime 08/27/19 22 08/27/2021 COLOG UARD cologuard result reportable NEGATI VE negati ve NEGAT HERMELINDO TEST RESUL T. A negat hermelindo Colog uard resul t indic ates a low likel ihood that a color ectal cance r (CRC) or advan yeimi adeno ma (dylan omato us polyp s with more advan yeimi pre-m align ant featu res) is prese nt. The chanc e that a perso n with a negat hermelindo Colog uard test has a color ectal cance r is less than 1 in 1500 (nega tive predi ctive value >99.9 %) or has an advan yeimi adeno ma is less than 5.3% (nega tive predi ctive value 94.7% ). These data are based on a prosp ectiv e cross -sect ional study of 10,00 0 indiv idual s at [facility] risk for color ectal cance r who were scree shivam with both Colog uard and colon oscop y. (Cole Can al, N Engl J Med 2014; 370(1 4):12 86-12 97) The mundo l value (refe rence range ) for this assay is negat hermelindo. COLOG UARD RE-SC REENI NG RECOM MENDA TION: Perio dic color ectal cance r scree ryan is an impor tant part of preve ntive healt hcare for asymp tomat ic indiv idual s at [facility] risk for color ectal cance r. Follo wing a negat hermelindo Colog uard resul t, the Ameri can Cance r Socie ty and U.S. Multi -Soci ety Task Force scree ryan guide lines recom mend a Colog uard re-sc stephan rodriguez inter keaton of 3 years . Refer ences : Ameri can Cance r Socie ty Guide line for Color ectal Cance r Scree ryan: https ://kaylynn w.can cer.o rg/ca ncer/ colon -rect al-ca ncer/ detec tion- diagn osis- stagi ng/ac s-rec ommen datio ns.ht ml.; Santiago SMALLS, Magdalena FERNANDEZ, Stacey WARNER, Color ectal Cance r Scree ryan: Recom menda tions for Physi cians and Patie nts from the U.S. Multi -Soci ety Task Force on Color ectal Cance r Scree ryan , Am J Gastr oente rolog y 2017; 112:1 016-1 030. TEST DESCR IPTIO N: [place] site algor ithmi c kylee sis of stool DNA-b iomimi schultz with hemog lobin immun oassa y. Quant itati ve value s of indiv idual bioma rkers are not repor table and are not assoc iated with indiv idual bioma rker resul t refer ence range s. Colog uard is inten ded for color ectal cance r scree ryan of adult s of eithe r sex, 45 years or older , who are at [facility] for color ectal cance r (CRC) . Colog uard has been appro fausto for use by the U.S. FDA. The perfo rmanc e of Colog uard was estab lishe d in a cross secti onal study of [facility] adult s aged 50-84 . Colog uard perfo rmanc e in patie nts ages 45 to 49 years was estim ated by sub-g roup kylee sis of near- age group s. Colon oscop ies perfo rmed for a posit hermelindo resul t may find as the most clini rut signi fican t lesio n: color ectal cance r [4.0% ], advan yeimi adeno ma (incl uding sessi le romy manoj polyp s great er than or equal to 1cm diame ter) [20%] or non- advan yeimi adeno ma [31%] ; or no color ectal neopl gregorio [45%] . These estim ates are deriv ed from a prosp ectiv e cross -sect ional scree ryan study of 0 indiv idual s at [facility] risk for color ectal cance r who were scree shivam with both Colog uard and colon oscop y. (Cole Can al, N Engl J Med 2014; 370(1 4):12 86-12 97.) Colog uard may produ ce a false negat hermelindo or false posit hermelindo resul t (no color ectal cance r or preca ncero us polyp prese nt at colon oscop y follo w up). A negat hermelindo Colog uard test resul t does not guara ntee the absen ce of CRC or advan yeimi adeno ma (pre- cance r). The curre nt Colog uard scree ryan inter keaton is every 3 years . (Amer ican Cance r Socie ty and U.S. Multi -Soci ety Task Force ). Colog uard perfo rmanc e data in a 0 patie nt pivot al study using colon oscop y as the refer ence metho d can be acces sed at the follo wing locat ion: www.e xactl abs.c om/re selene . Addit ional descr iptio n of the Colog uard test proce ss, warni ngs and preca ution s can be found at www.c torres mckinnond.c om. Not Available [facility] (Cologuard Orders Only) [address], [place], [address], 09/06/2021 22:18:26 03/17/20 22 03/17/2022 URINA LYSIS , COMPL ETE W/ REFLE X TO CULTU RE urinalysis reflex COMMEN T This speci men will not refle x to a Urine Cultu re. Not Available [facility] [address] [place], [place] [address]y [address], [place], [address], 03/18/2022 06:09:13 03/17/20 22 03/18/2022 URINA LYSIS , COMPL ETE W/ REFLE X TO CULTU RE specific gravity 1.020 1.005- 1.030 normal Not Available [facility] [address] [place], [place] [address]y [address], [place], [address], 03/18/2022 06:09:13 03/17/20 22 03/18/2022 URINA LYSIS , COMPL ETE W/ REFLE X TO CULTU RE pH 5.5 5.0-7. 5 normal Not Available [facility] [address] [place], [place] [address]y [address], [place], [address], 03/18/2022 06:09:13 03/17/20 22 03/18/2022 URINA LYSIS , COMPL ETE W/ REFLE X TO CULTU RE urine-color YELLOW yellow normal Not Available [facility] [address] [place], [place] [address]y [address], [place], [address], 03/18/2022 06:09:13 03/17/20 22 03/18/2022 URINA LYSIS , COMPL ETE W/ REFLE X TO CULTU RE appearance CLEAR clear normal Not Available [facility] [address], [place], [address], 03/18/2022 06:09:13 03/17/20 22 03/18/2022 URINA LYSIS , COMPL ETE W/ REFLE X TO CULTU RE WBC esterase NEGATI VE negati ve normal Not Available [facility] [address] [place], [place] [address]y [address], [place], [address], 03/18/2022 06:09:13 03/17/20 22 03/18/2022 URINA LYSIS , COMPL ETE W/ REFLE X TO CULTU RE protein TRACE negati ve/tra ce normal Not Available [facility] [address], [place], [address], 03/18/2022 06:09:13 03/17/20 22 03/18/2022 URINA LYSIS , COMPL ETE W/ REFLE X TO CULTU RE glucose NEGATI VE negati ve normal Not Available [facility] [address] [facility] [address], [place], [address], 03/18/2022 06:09:13 03/17/20 22 03/18/2022 URINA LYSIS , COMPL ETE W/ REFLE X TO CULTU RE ketones NEGATI VE negati ve normal Not Available [facility] [facility] [address], [place], [address], 03/18/2022 06:09:13 03/17/20 22 03/18/2022 URINA LYSIS , COMPL ETE W/ REFLE X TO CULTU RE occult blood TRACE negati ve abnormal Not Available [facility] [facility] [address] [place], [address], 03/18/2022 06:09:13 03/17/20 22 03/18/2022 URINA LYSIS , COMPL ETE W/ REFLE X TO CULTU RE bilirubin NEGATI VE negati ve normal Not Available [facility] [address] [facility] [address] [place], [address], 03/18/2022 06:09:13 03/17/20 22 03/18/2022 URINA LYSIS , COMPL ETE W/ REFLE X TO CULTU RE urobilinogen ,semi-qn 0.2 mg/dL 0.2-1. 0 normal Not Available [facility] [address], [place], [address], 03/18/2022 06:09:13 03/17/20 22 03/18/2022 URINA LYSIS , COMPL ETE W/ REFLE X TO CULTU RE nitrite, urine NEGATI VE negati ve normal Not Available [facility] [facility] [address], [place], [address], 03/18/2022 06:09:13 03/17/20 22 03/18/2022 URINA LYSIS , COMPL ETE W/ REFLE X TO CULTU RE microscopic examination SEE BELOW: normal Micro scopi c was indic ated and was perfo rmed. Not Available [facility] [address] [facility] [address], [place], [address], 03/18/2022 06:09:13 03/17/20 22 03/18/2022 URINA LYSIS , COMPL ETE W/ REFLE X TO CULTU RE WBC 0-5 /hpf 0 - 5 normal Not Available [facility] [facility] [address] [place], [address], 03/18/2022 06:09:13 03/17/20 22 03/18/2022 URINA LYSIS , COMPL ETE W/ REFLE X TO CULTU RE RBC 3-10 /hpf 0 - 2 abnormal Not Available [facility] [address] [facility] [address], [place], [address], 03/18/2022 06:09:13 03/17/20 22 03/18/2022 URINA LYSIS , COMPL ETE W/ REFLE X TO CULTU RE epithelial cells (non renal) NONE SEEN /hpf 0 - 10 normal Not Available [facility] [address] [facility] [address], [place], [address], 03/18/2022 06:09:13 03/17/20 22 03/18/2022 URINA LYSIS , COMPL ETE W/ REFLE X TO CULTU RE casts NONE SEEN /lpf none seen normal Not Available [facility] [facility] [address], [place], [address], 03/18/2022 06:09:13 03/17/20 22 03/18/2022 URINA LYSIS , COMPL ETE W/ REFLE X TO CULTU RE bacteria NONE SEEN none seen/f ew normal Not Available [facility] [address], [place], [address], 03/18/2022 06:09:13 03/17/20 22 03/18/2022 CBC W/ AUTOD IFF, COMPL ETE BLOOD COUNT WBC 10.5 x10e3 /uL 3.4-10 .8 normal Not Available [facility] [address] [place], [place] [address]y [address], [place], [address], 03/18/2022 08:11:26 03/17/20 22 03/18/2022 CBC W/ AUTOD IFF, COMPL ETE BLOOD COUNT RBC 4.92 x10e6 /uL 4.14-5 .80 normal Not Available [facility] [address] [place], [place] [address]y [address], [place], [address], 03/18/2022 08:11:26 03/17/20 22 03/18/2022 CBC W/ AUTOD IFF, COMPL ETE BLOOD COUNT hemoglobin 15.2 g/dL 13.0-1 7.7 normal Not Available [facility] [facility] [address] [place], [address], 03/18/2022 08:11:26 03/17/20 22 03/18/2022 CBC W/ AUTOD IFF, COMPL ETE BLOOD COUNT hematocrit 46.2 % 37.5-5 1.0 normal Not Available [facility] [address] [place], [place] [address]y [address], [place], [address], 03/18/2022 08:11:26 03/17/20 22 03/18/2022 CBC W/ AUTOD IFF, COMPL ETE BLOOD COUNT MCV 94 fL 79-97 normal Not Available [facility], [place], [address], 03/18/2022 08:11:26 03/17/20 22 03/18/2022 CBC W/ AUTOD IFF, COMPL ETE BLOOD COUNT MCH 30.9 pg 26.6-3 3.0 normal Not Available [facility] [address], [place], [address], 03/18/2022 08:11:26 03/17/20 22 03/18/2022 CBC W/ AUTOD IFF, COMPL ETE BLOOD COUNT MCHC 32.9 g/dL 31.5-3 5.7 normal Not Available [facility], [place], [address], 03/18/2022 08:11:26 03/17/20 22 03/18/2022 CBC W/ AUTOD IFF, COMPL ETE BLOOD COUNT RDW 12.0 % 11.6-1 5.4 normal Not Available [facility] [facility] [address] [place], [address], 03/18/2022 08:11:26 03/17/20 22 03/18/2022 CBC W/ AUTOD IFF, COMPL ETE BLOOD COUNT platelets 292 x10e3 /uL 150-45 0 normal Not Available [facility], [place], [address], 03/18/2022 08:11:26 03/17/20 22 03/18/2022 CBC W/ AUTOD IFF, COMPL ETE BLOOD COUNT neutrophils 74 % not estab. normal Not Available [facility], [place], [address], 03/18/2022 08:11:26 03/17/20 22 03/18/2022 CBC W/ AUTOD IFF, COMPL ETE BLOOD COUNT lymphs 18 % not estab. normal Not Available [facility] [address], [place], [address], 03/18/2022 08:11:26 03/17/20 22 03/18/2022 CBC W/ AUTOD IFF, COMPL ETE BLOOD COUNT monocytes 6 % not estab. normal Not Available [facility] [address], [place], [address], 03/18/2022 08:11:26 03/17/20 22 03/18/2022 CBC W/ AUTOD IFF, COMPL ETE BLOOD COUNT eos 1 % not estab. normal Not Available [facility] [address], [place], [address], 03/18/2022 08:11:26 03/17/20 22 03/18/2022 CBC W/ AUTOD IFF, COMPL ETE BLOOD COUNT basos 1 % not estab. normal Not Available [facility] [address], [place], [address], 03/18/2022 08:11:26 03/17/20 22 03/18/2022 CBC W/ AUTOD IFF, COMPL ETE BLOOD COUNT neutrophils (absolute) 7.7 x10e3 /uL 1.4-7. 0 high Not Available [facility] [address], [place], [address], 03/18/2022 08:11:26 03/17/20 22 03/18/2022 CBC W/ AUTOD IFF, COMPL ETE BLOOD COUNT lymphs (absolute) 1.9 x10e3 /uL 0.7-3. 1 normal Not Available [facility] [address] [facility] [address], [place], [address], 03/18/2022 08:11:26 03/17/20 22 03/18/2022 CBC W/ AUTOD IFF, COMPL ETE BLOOD COUNT monocytes(ab solute) 0.7 x10e3 /uL 0.1-0. 9 normal Not Available [facility] [address] [place] [address] [address], [place], [address], 03/18/2022 08:11:26 03/17/20 22 03/18/2022 CBC W/ AUTOD IFF, COMPL ETE BLOOD COUNT eos (absolute) 0.2 x10e3 /uL 0.0-0. 4 normal Not Available [facility] [address] [place] [address] [address], [place], [address], 03/18/2022 08:11:26 03/17/20 22 03/18/2022 CBC W/ AUTOD IFF, COMPL ETE BLOOD COUNT baso (absolute) 0.1 x10e3 /uL 0.0-0. 2 normal Not Available [facility] [address] [place] [address] [address], [place], [address], 03/18/2022 08:11:26 03/17/20 22 03/18/2022 CBC W/ AUTOD IFF, COMPL ETE BLOOD COUNT immature granulocytes 0 % not estab. normal Not Available [facility] [address] [place] [address] [address], [place], [address], 03/18/2022 08:11:26 03/17/20 22 03/18/2022 CBC W/ AUTOD IFF, COMPL ETE BLOOD COUNT immature grans (abs) 0.0 x10e3 /uL 0.0-0. 1 normal Not Available [facility] [address] [place] [address] [address], [place], [address], 03/18/2022 08:11:26 03/17/20 22 03/18/2022 CK creatine kinase,total 225 U/L 41-331 normal Not Available [facility] [address], [place], [address], 03/18/2022 08:11:27 03/17/20 22 03/18/2022 CMP, COMPR EHENS HERMELINDO METAB OLIC PANEL glucose 103 mg/dL 65-99 high Not Available [facility] [address], [place], [address], 03/18/2022 08:11:28 03/17/20 22 03/18/2022 CMP, COMPR EHENS HERMELINDO METAB OLIC PANEL BUN 15 mg/dL 8-27 normal Not Available [facility] [address], [place], [address], 03/18/2022 08:11:28 03/17/20 22 03/18/2022 CMP, COMPR EHENS HERMELINDO METAB OLIC PANEL creatinine 1.12 mg/dL 0.76-1 .27 normal Not Available [facility] [address], [place], [address], 03/18/2022 08:11:28 03/17/20 22 03/18/2022 CMP, COMPR EHENS HERMELINDO METAB OLIC PANEL eGFR 69 mL/mi n/1.7 3 >59 normal Not Available [facility] [address], [place], [address], 03/18/2022 08:11:28 03/17/20 22 03/18/2022 CMP, COMPR EHENS HERMELINDO METAB OLIC PANEL BUN/creatini ne ratio 13 10-24 normal Not Available [facility] [address], [place], [address], 03/18/2022 08:11:28 03/17/20 22 03/18/2022 CMP, COMPR EHENS HERMELINDO METAB OLIC PANEL sodium 140 mmol/ L 134-14 4 normal Not Available [facility] [address], [place], [address], 03/18/2022 08:11:28 03/17/20 22 03/18/2022 CMP, COMPR EHENS HERMELINDO METAB OLIC PANEL potassium 4.3 mmol/ L 3.5-5. 2 normal Not Available [facility] [address], [place], [address], 03/18/2022 08:11:28 03/17/2003/18/2022 CMP, COMPR EHENS HERMELINDO METAB OLIC PANEL chloride 100 mmol/ L 96-106 normal Not Available [facility] [address], [place], [address], 03/18/2022 08:11:28 03/17/20 22 03/18/2022 CMP, COMPR EHENS HERMELINDO METAB OLIC PANEL carbon dioxide, total 26 mmol/ L 20-29 normal Not Available [facility] [address], [place], [address], 03/18/2022 08:11:28 03/17/20 22 03/18/2022 CMP, COMPR EHENS HERMELINDO METAB OLIC PANEL calcium 9.9 mg/dL 8.6-10 .2 normal Not Available [facility] [address], [place], [address], 03/18/2022 08:11:28 03/17/2003/18/2022 CMP, COMPR EHENS HERMELINDO METAB OLIC PANEL protein, total 7.2 g/dL 6.0-8. 5 normal Not Available [facility] [address], [place], [address], 03/18/2022 08:11:28 03/17/20 22 03/18/2022 CMP, COMPR EHENS HERMELINDO METAB OLIC PANEL albumin 5.0 g/dL 3.7-4. 7 high Not Available [facility] [address], [place], [address], 03/18/2022 08:11:28 03/17/20 22 03/18/2022 CMP, COMPR EHENS HERMELINDO METAB OLIC PANEL globulin, total 2.2 g/dL 1.5-4. 5 normal Not Available [facility] [facility] [address], [place], [address], 03/18/2022 08:11:28 03/17/2003/18/2022 CMP, COMPR EHENS HERMELINDO METAB OLIC PANEL A/G ratio 2.3 1.2-2. 2 high Not Available [facility] [facility] [address], [place], [address], 03/18/2022 08:11:28 03/17/20 22 03/18/2022 CMP, COMPR EHENS HERMELINDO METAB OLIC PANEL bilirubin, total 0.6 mg/dL 0.0-1. 2 normal Not Available [facility] [facility] [address], [place], [address], 03/18/2022 08:11:28 03/17/20 22 03/18/2022 CMP, COMPR EHENS HERMELINDO METAB OLIC PANEL alkaline phosphatase 139 IU/L 44-121 high Not Available [facility] [address], [place], [address], 03/18/2022 08:11:28 03/17/2003/18/2022 CMP, COMPR EHENS HERMELINDO METAB OLIC PANEL AST (SGOT) 24 IU/L 0-40 normal Not Available [facility] [facility] [address], [place], [address], 03/18/2022 08:11:28 03/17/20 22 03/18/2022 CMP, COMPR EHENS HERMELINDO METAB OLIC PANEL ALT (SGPT) 29 IU/L 0-44 normal Not Available [facility] [address], [place], [address], 03/18/2022 08:11:28 03/17/20 22 03/18/2022 LIPID PANEL REF DLDL cholesterol, total 222 mg/dL 100-19 9 high Not Available [facility] [address], [place], [address], 03/18/2022 08:11:29 03/17/20 22 03/18/2022 LIPID PANEL REF DLDL triglyceride s 113 mg/dL 0-149 normal Not Available [facility] [address] [place], [address], 03/18/2022 08:11:29 03/17/20 22 03/18/2022 LIPID PANEL REF DLDL HDL cholesterol 44 mg/dL >39 normal Not Available [facility] [address] [place], [address], 03/18/2022 08:11:29 03/17/20 22 03/18/2022 LIPID PANEL REF DLDL LDL chol calc ([facility]) 158 mg/dL 0-99 high Not Available [facility] [address], [place], [address], 03/18/2022 08:11:29 03/17/20 22 03/18/2022 LIPID PANEL REF DLDL T. chol/HDL ratio 5.0 ratio 0.0-5. 0 normal T. Chol/ HDL Ratio Men Women 1/2 Avg.R isk 3.4 3.3 Avg.R isk 5.0 4.4 2X Avg.R isk 9.6 7.1 3X Avg.R isk 23.4 11.0 Not Available [facility] [address] [facility] [address] [place], [address], 03/18/2022 08:11:29 03/17/20 22 03/18/2022 LIPID PANEL REF DLDL LDL/HDL ratio 3.6 ratio 0.0-3. 6 normal LDL/H DL Ratio Men Women 1/2 Avg.R isk 1.0 1.5 Avg.R isk 3.6 3.2 2X Avg.R isk 6.2 5.0 3X Avg.R isk 8.0 6.1 Not Available [facility] [address] [facility] [address] [place], [address], 03/18/2022 08:11:29 03/17/20 22 03/18/2022 LIPID PANEL REF DLDL LDL chol. (direct) 152 mg/dL 0-99 high Not Available [facility] [address] [place], [address], 03/18/2022 08:11:29 03/17/20 22 03/18/2022 PSA DIAGN OSTIC prostate specific Ag 6.8 NG/mL 0.0-4. 0 high Willam ECLIA metho dolog y. Accor ding [...] t be inter prete d as absol [place] evide nce of the prese nce or absen ce of nidia oscar disea se. Not Available [facility] [address] [place], [address], 03/18/2022 08:11:30 03/17/20 22 03/18/2022 VITAM IN D, 25-HY DROXY vitamin D, 25-hydroxy 30.9 NG/mL 30.0-1 00.0 normal Vitam in D defic iency has been defin ed by the Insti tute of Medic ine and an Endoc rine Socie ty pract ice guide line as a level of serum 25-OH vitam in D less than 20 ng/mL (1,2) . The Endoc rine Socie ty went on to fur er defin e vitam in D insuf ficie ncy as a level betwe en 21 and 29 ng/mL (2). 1. IOM (Inst itute of Medic ine). 2009. Kevina ry refer ence intak es for calci um and D. Basilia jacobs [place]: [facility] . 2. Graham pineda MF, Raffaele rasmussen [place], Nicky off-F sumit i FLORES, et al. Evalu ation , treat ment, and preve ntion of vitam in D defic iency : an Endoc rine Socie ty clini concha pract ice guide line. JCEM. 2010; 96(7) :1911 -30. Not Available [facility] [address] [place], [address], 03/18/2022 08:11:31 03/17/20 22 03/17/2022 VENIP UNCTU RE results Compl ete Not Available [facility] [address], [place], [address], 03/17/2022 09:15:24 03/19/20 22 03/20/2022 PSA (FREE AND TOTAL ) prostate specific Ag 6.4 NG/mL 0.0-4. 0 high Willam ECLIA metho dolog y. Accor ding [...] t be inter prete d as absol [place] evide nce of the prese nce or absen ce of cesario shelby se. Not Available [facility] [address], [place], [address], 03/20/2022 08:11:48 03/19/20 22 03/20/2022 PSA (FREE AND TOTAL ) PSA, free 0.76 NG/mL n/a normal Willam ECLIA metho dolog y. Not Available [facility] [address], [place], [address], 03/20/2022 08:11:48 03/19/20 22 03/20/2022 PSA (FREE AND TOTAL ) % free PSA 11.9 % normal The table below lists the proba bilit y of prost ate cance r for men with non-s uspic ious DALE resul ts and total PSA betwe en 4 and 10 ng/mL , by patie nt age (Selena fadi et al, EKATERINA 1998, 279:1 542). % Free PSA 50-64 yr 65-75 yr 0.00- 10.00 % 56% 55% 10.01 -15.0 0% 24% 35% 15.01 -20.0 0% 17% 23% 20.01 -25.0 0% 10% 20% >25.0 0% 5% 9% Pleas e note: Julee berrios et al did not make speci fic recom menda tions regar ding the use of perce nt free PSA for any other popul ation of men. Not Available [facility] [address], [place], [address], 03/20/2022 08:11:48 03/19/20 22 03/20/2022 TESTO STERO NE testosterone 238 NG/dL 264-91 6 low Adult male refer ence inter keaton is based on a popul ation of healt hy nonob aron males (BMI <30) betwe en 19 and 39 years old. Velia sanderson et.al . JCEM 2017, 102;1 161-1 173. PMID: 55135 103. Not Available [facility] [address], [place], [address], 03/20/2022 08:11:49 03/19/20 22 03/19/2022 VENIP UNCTU RE results Compl ete Not Available [facility] [address], [place], [address], 03/19/2022 09:55:12 Result Notes None recorded. 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 Not Available [facility] 2 22:12:54 Persistent insomnia 935112982 Active Not Available [facility] 2 22:12:55 Asthma 608843620 Active Not Available [facility] 2 22:12:54 Generalized anxiety disorder 87288893 Active 2017 Not Available [facility] 2 22:12:54 Gastroesophag eal reflux disease 332435363 Active Not Available [facility] 2 22:12:55 Basal cell carcinoma of skin 002403783 Active 2019 Not Available [facility] 2 22:12:55 Pure hypercholeste rolemia 887952958 Active Not Available [facility] 2 22:12:54 Vitamin D deficiency 93411149 Active 2016 Not Available [facility] 2 22:12:54 Memory impairment 043070666 Active 2016 Not Available [facility] 2 22:12:55 Osteoarthriti s 566633894 Active 2016 Not Available [facility] 2 22:12:54 Obesity 098331545 Active 2017 Not Available [facility] 2 22:12:54 Allergic conjunctiviti s 656688872 Active Not Available [facility] 2 22:12:54 Hip pain 18973569 Active Not Available [facility] 2 22:12:55 Allergic rhinitis 51183179 Active Not Available [facility] 2 22:12:55 Sleep apnea 28243456 Active 2016 Not Available [facility] 2 22:12:55 Problem Notes None recorded. Procedures Surgical History Date Name Laterality Status Provider Name and Address Organization Details Recorded Time 03/24/20 Quality Functional Assessment completed [facility], [facility] 03/24/2022 11:18:07 03/24/20 22 Quality Medication Reviewed and Updated completed [facility] 03/24/2022 11:18:07 03/24/20 22 Quality BMI with follow up completed [facility] 03/24/2022 11:18:07 03/24/20 22 Quality Advanced Care Planning completed [facility] 03/24/2022 11:18:07 03/24/20 22 Quality Incontinence Screening completed [facility] 03/24/2022 11:18:07 03/24/20 22 Medicare AWV-Screening Schedule completed [facility] 03/24/2022 11:18:07 03/24/20 22 Counseling: Advanced care planning completed MAURO Byrd [facility], [facility] 03/24/2022 13:55:20 03/24/20 22 Quality Fall Risk Assessment completed [facility], [facility] 03/24/2022 11:18:07 08/06/19 22 Nail Debridement completed Maeve Giles [facility], [facility] 08/06/2021 16:05:06 03/15/20 18 Feces-based colorectal cancer DNA screening [facility] 08/06/2021 09:59:56 07/18/19 colonoscopy completed Tracy Reagan [facility] 08/06/2021 09:58:40 [facility] 09:58:31 Imaging Results None recorded. Procedure Notes None recorded. Medical Equipment None Reported. Allergies Allergen ID Allergen Name Allergen Category Reaction Reaction Severity Criticality Documentation Date Start Date Code Code System Note Provider Name and Address Organization Details Recorded Time 014609 Product containin g 3-hydroxy -3-methyl glutaryl- coenzyme A reductase inhibitor (product) medicatio n other moderate Not available 07/18/20212014 94127 009 SNOMED Palpi tatio ns Tracyjerry Reagan [facility], [facility] 12:32:35 Medications Name Sig Start Date Stop Date Status Note LastModified by Organization Details LastModified Time albuterol sulfate 0.63 mg/3 mL solution for nebulizat ion Inhale 3 mL as needed by inhalati on route. 2013 active Not Available Not Available Not Avai lable ipratropi um 0.5 mg-albute rol 3 mg (2.5 mg base)/3 mL nebulizat ion soln INHALE 3 ML EVERY 6 HOURS BY NEBULIZA TION ROUTE. 2021 active Not Available Not Available Not Avai lable donepezil 5 mg tablet TAKE 1 TABLET [...] AN INTERVAL OF 6 TO 8 HOURS active Not Available Not Available No t Available albuterol sulfate 1.25 mg/3 mL solution for [...] meloxicam 15 mg tablet 1 PO QD active Not Available Not Available Not Available sucralfat e 1 gram tablet TAKE 2 TABLETS BY MOUTH TWICE A DAY 09/17 completed Not Available Not Available Not Available [...] TAKE 1 TABLET BY MOUTH EVERY DAY 08/06 completed Not Available Not Available Not Available [...] Take 1 tablet 1 time a day active Not Available Not Available No t Available tobramyci n 0.3 % eye drops [...] 1 CAPSULE BY MOUTH TWICE A DAY 2021 active Not Available Not Available Not Avai lable mont[address]uka [facility] 10 mg tablet TAKE 1 TABLET S EVERY DAY BY ORAL ROUTE 11/30 completed Not Available Not Available Not Available hydroxyzi ne HCl 25 mg tablet TAKE 1 TABLET BY MOUTH TWICE A DAY FOR 15 DAYS active Not Available Not Available No t Available mupirocin 2 % topical ointment APPLY [...] 2 PUFFS EVERY 6 TO 8 HOURS 2021 active Not Available Not Available Not Avai lable Vitamin D2 1,250 mcg (50,000 unit) capsule [...] 1 TABLET BY MOUTH TWICE A DAY 03/28 completed Not Available Not Available Not Available Zetia 10 mg tablet Take 1 tablet every day by oral route. active Not Available Not Available No t Available Prilosec OTC 20 mg tablet,de layed release Take 1 tablet twice a day by oral route for 30 days. 09/17 completed Not Available Not Available Not Available [...] Not Available melatonin take 1 tab hs 09/17 completed Not Available Not Available Not Available [...] day by oral route for 30 days. active Not Available Not Available No t Available Dexilant 60 mg capsule, delayed release Take 1 capsule every day by oral route for 30 days. active Not Available Not Available No t Available Livalo 4 mg tablet Take 1 tablet every day by oral route. active Not Available Not Available No t Available Gloria Allergy 180 mg tablet Take 1 [...] Not Available Not Available Not Available Flulaval 45 mcg (15 mcg x 3)/0.5 mL intramusc ular suspensio n active Not Available Not Available Not Available Anoro Ellipta 62.5 mcg-25 mcg/actua tion powder for inhalatio n Inhale 1 puff every day by inhalati on route for 90 days. active Not Available Not Available No t Available Fluvirin 45 mcg (15 mcg x 3)/0.5 mL intramusc ular suspensio n INJECT 0.5 ML INTRAMUS CULARLY DIRECTED . active Not Available Not Available No t Available Fluzone High-Dose (PF) 180 mcg/0.5 mL intramusc ular syringe active Not Available Not Available Not Available Fluzone High-Dose 7956-0306 (PF) 180 mcg/0.5 mL intramusc ular syringe ADM 0.5ML IM UTD active Not Available Not Available No t Available Fluzone High-Dose 7133-9782 (PF) 180 mcg/0.5 mL intramusc ular syringe ADM 0.5ML IM UTD 06/03 completed Not Available Not Available Not Available Wixela Inhub 250 mcg-50 mcg/dose powder for inhalatio n TAKE 1 PUFF BY MOUTH TWICE A DAY active Not Available Not Available No t Available Fluad 65yr up(PF)45 mcg(15 mcgx3)/0. 5 mL intramusc ular syringe ADM 0.5ML IM UTD 06/21 completed Not Available Not Available Not Available Fluad Quad [id number] (65yr up)(PF) 60 mcg (15 mcg x 4)/0.5mL IM syringe ADM 0.5ML IM UTD 08/04 completed Not Available Not Available Not Available Vitals Date Recorded Body mass index (BMI) Body height Heart rate Respiratory rate Body temperature Body weight Systolic blood pressure Diastolic blood pressure Provider Name and Address Organization Details Last Updated DateTime 1 33.8 kg/m2 163.83 cm 87 /min 18 /min 97.9 [degF] 86887.4 7 g 184 mm[Hg] 96 mm[Hg] Not Available [facility] 2 22:11:14 Date Recorded Body height Heart rate Pain severity - 0-10 verbal numeric rating [Score] - Reported Respiratory rate Body temperature Body mass index (BMI) Body weight Systolic blood pressure Diastolic blood pressure Systolic blood pressure Diastolic blood pressure Systolic blood pressure Diastolic blood pressure Provider Name and Address Organization Details Last Updated DateTime 2 163.83 cm 84 /min 0 18 /min 98.1 [degF] 34.5 kg/m2 13976.5 9 g 183 mm[Hg] 96 mm[Hg] 177 mm[Hg] 96 mm[Hg] 135 mm[Hg] 84 mm[Hg] MAURO Byrd ID - [facility], [facility] 2 13:48:29 Date Recorded Body height Heart rate Oxygen saturation Oxygen saturation in Arterial blood by Pulse oximetry Pain severity - 0-10 verbal numeric rating [Score] - Reported Respiratory rate Body temperature Body mass index (BMI) Body weight Systolic blood pressure Diastolic blood pressure Systolic blood pressure Diastolic blood pressure Provider Name and Address Organization Details Last Updated DateTime 2 163.83 cm 93 /min 96 % 96 % 0 18 /min 98.2 [degF] 34.5 kg/m2 13800.5 9 g 172 mm[Hg] 99 mm[Hg] 176 mm[Hg] 81 mm[Hg] Jamaica Funk CMA [facility], [facility] 2 14:05:01 Date Recorded Body height Heart rate Pain severity - 0-10 verbal numeric rating [Score] - Reported Respiratory rate Body temperature Body mass index (BMI) Body weight Systolic blood pressure Diastolic blood pressure Systolic blood pressure Diastolic blood pressure Provider Name and Address Organization Details Last Updated DateTime 2 163.83 cm 89 /min 0 18 /min 98.1 [degF] 35 kg/m2 51319.0 2 g 181 mm[Hg] 97 mm[Hg] 171 mm[Hg] 98 mm[Hg] MAURO Byrd [facility], [facility] 2 13:32:03 Date Recorded Body height Heart rate Pain severity - 0-10 verbal numeric rating [Score] - Reported Respiratory rate Body temperature Body mass index (BMI) Body weight Systolic blood pressure Diastolic blood pressure Systolic blood pressure Diastolic blood pressure Provider Name and Address Organization Details Last Updated DateTime 2 163.83 cm 80 /min 0 18 /min 98.5 [degF] 34 kg/m2 70001.4 7 g 183 mm[Hg] 93 mm[Hg] 139 mm[Hg] 85 mm[Hg] Coni Mock [facility], [facility] 2 13:10:43 Social History Question Answer Notes LastModified by Organizat ion Details LastModified Time Tobacco Smoking Status Former Smoker MAUOR Byrd [facility], [facility] 08/06/2021 09:58:08 Do You Have An Advance Directive? No [email or web address] Information not available 08/06/2021 What Is Your Level Of Alcohol Consumption? Occasional [email or web address] Information not available 08/06/2021 Are You Currently Employed? 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 16+yearsdiana bond [email or web address] Information not available 08/06/2021 Do You Have A Medical Power Of Road Crew Member? No [email or web address] Information not available 08/06/2021 What Was The Date Of Your Most Recent Tobacco Screening? 08/06/2021 [email or web address] Information not available 08/06/2021 What Is Your Current Pack Years? [email or web address] Information not available 08/06/2021 What Is Your Relationship Status? [email or web address] Information not available 08/06/2021 Do You Use Any Illicit Or Recreational Drugs? No [email or web address] Information not available 08/06/2021 Has Tobacco Cessation Counseling Been Provided? No Information not available 08/06/2021 Do You Or Have You Ever Used Any Other Forms Of Tobacco Or Nicotine? No Information not available 08/06/2021 Sex: Unknown Functional Status None recorded. Mental Status None recorded. Family History Relationship Description Onset Age of this Age Resolved Age Notes LastModified by Organization Details LastModified Time Father Cerebrovascu lar accident [email or web address] Not available 09:56:49 Mother Natural [email or web address] Not available 2021 09:57:03 Notes:1 brother, no problems . 2 children alive and well Medical History Condition Response Other Y Sleep disorder/Insomnia Y High Cholesterol Y Hepatitis Y GERD/Ulcer Y Asthma Y Allergies (other than meds) Y Immunizations Vaccine Type Date Status Note Provider Nam e and Address Organization Details Recorded Time Influenza, high-dose, quadrivalent, PF 2 completed Jacki Mayen MD [address] [facility] [address], [place], [address], [facility], [facility] 03/24/2022 16:33:59 Influenza, high-dose, trivalent, PF 5 completed Coni Mock [facility] - [facility], [facility] 03/24/2022 11:18:31 Pneumococcal conjugate PCV 13 5 completed Coni Stuski null, [facility], [facility] 03/24/2022 11:18:31 Influenza, split virus, trivalent, preservative 4 completed Coni Stuski null, [facility], [facility] 03/24/2022 11:18:31 Influenza, split virus, quadrivalent, preservative 3 completed Coni Dulski null, [facility], [facility] 03/24/2022 13:11:35 Influenza, split virus, trivalent, preservative 2 completed Coni Stuski null, [facility], [facility] 03/24/2022 11:18:31 Influenza, split virus, trivalent, preservative 4 completed Coni Dulski null, [facility], [facility] 03/24/2022 11:18:31 Influenza, split virus, trivalent, preservative 3 completed Coni Stuski null, [facility], [facility] 03/24/2022 11:18:31 zoster live 0 completed Coni Dulski null, [facility], [facility] 03/24/2022 11:18:31 tetanus toxoid, unspecified formulation 0 completed Cnoi Dulski null, [facility], [facility] 03/24/2022 11:18:31 pneumococcal, unspecified formulation 0 completed Coni Dulski null, [facility], [facility] 03/24/2022 11:18:31 Influenza, adjuvanted, trivalent, PF 8 completed Coni Dulski null, [facility], [facility] 03/24/2022 11:18:31 Influenza, split virus, quadrivalent, PF 0 completed Coni Stuski null, [facility], [facility] 03/24/2022 11:18:31 tetanus toxoid, unspecified formulation 0 completed Coni Dulski null, [facility], [facility] 03/24/2022 11:18:31 Influenza, high-dose, trivalent, PF 6 completed Coni Dulski null, [facility], [facility] 03/24/2022 11:18:31 Influenza, high-dose, quadrivalent, PF 1 completed Coni Dulski null, [facility], [facility] 03/24/2022 11:18:31 Influenza, split virus, trivalent, preservative 3 completed Coni Dulski null, [facility], [facility] 03/24/2022 11:18:31 COVID-19, mRNA, LNP-S, PF, 100 mcg/0.5mL dose or 50 mcg/0.25mL dose 1 completed Coni Dulski null, [facility], [facility] 03/24/2022 11:18:31 Influenza, split virus, trivalent, PF 0 completed Coni Dulski null, [facility], [facility] 03/24/2022 11:18:31 pneumococcal, unspecified formulation 0 completed Coni Dulski null, [facility], [facility] 03/24/2022 11:18:31 Influenza, high-dose, trivalent, PF 7 completed Coni Dulski null, [facility], [facility] 03/24/2022 11:18:31 Influenza, split virus, quadrivalent, PF 0 completed Coni Dulski null, [facility], [facility] 03/24/2022 11:18:31 COVID-19, mRNA, LNP-S, PF, 100 mcg/0.5mL dose or 50 mcg/0.25mL dose 1 completed Coni Dulski null, [facility], [facility] 03/24/2022 11:18:31 COVID-19, mRNA, LNP-S, PF, 100 mcg/0.5mL dose or 50 mcg/0.25mL dose 1 completed Coni napoles, [facility], [facility] 03/24/2022 11:18:31 Influenza, adjuvanted, trivalent, PF 9 completed Coni napoles, [facility], [facility] 03/24/2022 11:18:31 COVID-19, mRNA, LNP-S, PF, 100 mcg/0.5mL dose or 50 mcg/0.25mL dose 2 completed Coni napoles, [facility], [facility] 03/24/2022 11:18:31 Past Encounters Encounter ID Performer Location Encounter Start Date Encounter Closed Date Diagnosis/Indication Diagnosis SNOMED-CT Code Diagnosis ICD10 Code Diagnosis Note [id number] [facility] [place] [address] [place] [address] [place] [address] 01/29/2013 00:00:00 02/16/2013 23:08:01 [id number] [facility] [place] [address] [place] [address] [place] [address] 04/23/2013 00:00:00 04/23/2013 20:09:08 [id number] [facility] [place] [address] [place] [address] [place] [address] 06/04/2013 00:00:00 06/04/2013 19:55:35 [id number] [facility] [place] [address] [place] [address] [place] [address] 06/18/2013 00:00:00 06/19/2013 22:49:49 [id number] [facility] [place] [address] [place] [address] [place] [address] 11/19/2013 00:00:00 11/19/2013 21:27:16 [id number] [facility] [place] [address] [place] [address] [place] [address] 12/25/2013 00:00:00 12/26/2013 21:41:49 [id number] [facility] [place] [address] [place] [address] [place] [address] 04/04/2014 00:00:00 04/04/2014 19:06:34 [id number] [facility] [place] [address] [place] [address] [place] [address] 01/07/2015 00:00:00 01/07/2015 18:27:58 [id number] [facility] [place] [address] [place] [address] [place] [address] 01/28/2015 00:00:00 01/28/2015 21:01:46 [id number] [facility] [place] [address] [place] [address] [place] [address] 04/01/2015 00:00:00 04/01/2015 18:52:17 [id number] [facility] [place] [address] [place] [address] [place] [address] 07/07/2015 00:00:00 07/07/2015 21:44:17 [id number] [facility] [place] [address] [place] [address] [place] [address] 08/07/2015 00:00:00 08/07/2015 21:17:51 [id number] [facility] [place] [address] [place] [address] [place] [address] 09/18/2015 00:00:00 09/18/2015 20:13:45 [id number] [facility] [place] [address] [place] [address] [place] [id number] 10/08/2015 00:00:00 10/08/2015 19:09:09 [id number] [facility] [place] [address] [place] [address] [place] [id number] 11/20/2015 00:00:00 11/20/2015 21:46:21 [id number] [facility] [place] [address] [place] [address] [place] [id number] 12/08/2015 00:00:00 12/08/2015 18:20:53 [id number] [facility] [place] [address] [place] [address] [place] [id number] 01/12/2016 00:00:00 01/12/2016 22:02:19 [id number] [facility] [place] [address] [place] [address] [place] [address] 02/11/2016 00:00:00 02/11/2016 20:10:25 [id number] [facility] [place] [address] [place] [address] [place] [address] 03/04/2016 00:00:00 03/04/2016 23:18:13 [id number] [facility] [place] [address] [place] [address] [place] [id number] 03/11/2016 00:00:00 03/11/2016 17:49:47 [id number] [facility] [place] [address] [place] [address] [place] [id number] 04/14/2016 00:00:00 04/14/2016 21:54:59 [id number] _ATHENA_M IGRATION_ DEFAULT_2 2_1 , 05/24/2016 00:00:00 05/25/2016 08:45:46 [id number] [facility] [place] [address] [place] [address] [place] [id number] 06/29/2016 00:00:00 06/29/2016 19:47:09 [id number] [facility] [place] [address] [place] [address] [place] [id number] 07/20/2016 00:00:00 07/20/2016 21:34:43 [id number] [facility] [place] [address] [place] [address] [place] [address] 07/22/2016 00:00:00 07/22/2016 20:16:36 [id number] [facility] [place] [address] [place] [address] [place] [id number] 02/09/2017 00:00:00 02/09/2017 18:37:59 [id number] [facility] [place] [address] [place] [address] [place] [address] 06/03/2017 00:00:00 06/03/2017 16:36:35 [id number] [facility] [place] [address] [place] [address] [place] [address] 07/06/2017 00:00:00 07/06/2017 17:48:10 [id number] [facility] [place] [address] [place] [address] [place] [address] 10/12/2017 00:00:00 10/13/2017 08:49:40 [id number] [facility] [place] [address] [place] [address] [place] [address] 12/21/2017 00:00:00 12/21/2017 20:00:20 [id number] [facility] [place] [address] [place] [address] [place] [address] 03/07/2018 00:00:00 03/07/2018 16:46:30 [id number] [facility] [place] [address] [place] [address] [place] [address] 05/16/2018 00:00:00 05/16/2018 14:02:35 [id number] [facility] [place] [address] [place] [address] [place] [id number] 06/16/2018 00:00:00 06/16/2018 12:12:36 [id number] [facility] [place] [address] [place] [address] [place] [id number] 08/14/2018 00:00:00 08/14/2018 18:44:08 [id number] [facility] [place] [address] [place] [address] [place] [address] 09/04/2018 00:00:00 09/04/2018 16:20:16 [id number] [facility] [place] [address] [place] [address] [place] [address] [place] [address] 10/13/2018 00:00:00 10/13/2018 19:44:33 [id number] [facility] [place] [address] [place] [address] [address] [place] [address] 11/30/2018 00:00:00 11/30/2018 19:06:17 [id number] [facility] [place] [address] [place] [address] [address] [place] [address] 12/28/2018 00:00:00 12/28/2018 20:37:18 [id number] [facility] [place] [address] [place] [address] [address] [place] [address] 03/02/2019 00:00:00 03/02/2019 17:55:28 [id number] [facility] [place] [address] [place] [address] [address] [place] [address] 03/12/2019 00:00:00 03/12/2019 19:57:02 [id number] [facility] [place] [address] [place] [address] [address] [place] [address] 04/16/2019 00:00:00 04/16/2019 12:42:36 [id number] [facility] [place] [address] [place] [address] [address] [place] [address] 04/26/2019 00:00:00 04/26/2019 12:57:24 [id number] [facility] [place] [address] [place] [address] [address] [place] [address] 06/04/2019 00:00:00 06/04/2019 19:50:38 [id number] [facility] [place] [address] [place] [address] [address] [place] [address] 06/11/2019 00:00:00 06/11/2019 18:09:56 [id number] [facility] [place] [address] [place] [address] [place] [address] [place] [address] 06/21/2019 00:00:00 06/21/2019 21:27:46 [id number] [facility] [place] [address] [place] [address] [place] [address] [place] [address] 06/29/2019 00:00:00 06/29/2019 20:38:40 [id number] [facility] [place] [address] [place] [address] [place] [address] [place] [address] 07/26/2019 00:00:00 07/26/2019 21:47:48 [id number] [facility]_ IGRATION_ DEFAULT_2 2_1 , 09/04/2019 00:00:00 09/04/2019 13:55:20 [id number] [facility] [place] [address] [place] [address] [place] [address] [place] [address] 09/11/2019 00:00:00 09/11/2019 20:24:02 [id number] [facility] [place] [address] [place] [address] [place] [address] [place] [address] 11/08/2019 00:00:00 11/08/2019 10:03:23 [id number] [facility] [place] [address] [place] [address] [place] [address] [place] [address] 12/11/2019 00:00:00 12/11/2019 18:39:53 [id number] [facility]_ IGRATION_ DEFAULT_2 2_1 , 12/14/2019 00:00:00 12/14/2019 14:36:01 [id number] [facility] [place] [address] [place] [address] [place] [address] [place] [address] 01/15/2020 00:00:00 01/15/2020 13:12:43 [id number] [facility] [place] [address] [place] [address] [address] [place] [address] 03/10/2020 00:00:00 03/10/2020 13:10:45 [id number] [facility] [place] [address] [place] [address] [place] [address] [place] [address] 03/17/2020 00:00:00 03/17/2020 18:38:52 [id number] [facility] [place] [address] [place] [address] [place] [address] [place] [address] 03/27/2020 00:00:00 03/27/2020 16:19:08 [id number] [facility] [place] [address] [place] [address] [address] [place] [address] 04/17/2020 00:00:00 04/17/2020 20:35:51 [id number] [facility] [place] [address] [place] [address] [place] [address] [place] [address] 07/14/2020 00:00:00 07/14/2020 18:25:39 [id number] [facility] [place] [address] [place] [address] [address] [place] [address] 08/04/2020 00:00:00 08/04/2020 20:45:13 [id number] [facility] [place] [address] [place] [address] [address] [place] [address] 08/11/2020 00:00:00 08/11/2020 19:45:31 [id number] [facility] [place] [address] [place] [address] [address] [place] [address] 08/20/2020 00:00:00 08/20/2020 15:42:53 [id number] [facility] [place] [address] [place] [address] [address] [place] [address] 08/25/2020 00:00:00 08/25/2020 16:15:19 [id number] [facility] [place] [address] [place] [address] [address] [place] [address] 09/23/2020 00:00:00 09/23/2020 20:04:26 [id number] [facility] [place] [address] [place] [address] [address] [place] [address] 4 12/24/2020 00:00:00 12/24/2020 18:44:29 [id number] [facility] [place] [address] [place] [address] [place] [address] 03/18/2021 00:00:00 03/18/2021 14:22:16 [id number] [facility] [place] [address] [place] [address] [address] [place] [address] 04/10/2021 00:00:00 04/10/2021 21:06:05 [id number] Jacki Mayen MD [facility] [place] [address] [place] [address] [place] [address] [place] [address] 08/06/2021 09:15:42 08/06/2021 16:05:26 Screening for malignant neoplasm of colon 763532065 Z12.12 Z12.11 patient unable or unwilling to have colonoscop y; alternativ e screening ordered Onychomycosis [id number] B35.1 [id number] Jacki Mayen MD [facility] [place] [address] [place] [address] [address] [place] [address] 08/20/2021 13:35:59 08/20/2021 15:31:32 Basal cell carcinoma of skin [id number] C44.91 [id number] Jacki Mayen MD [facility] [place] [address] [place] [address] [place] [address] [place] [address] 09/17/2021 13:14:55 09/17/2021 14:32:38 Gastroesophageal reflux disease [id number] K21.9 He has gastroesop hageal reflux disease, he does not know what medicine he is taking but he is on Prilosec twice daily of tried him tell him to go to once every other day we have had discussion multiple times before he is no longer taking his sulcal fate his condition is stable and not progressin g Asthma [id number] J45.90 9 Has had a lifetime of asthma reactive airways disease and is now using the albuterol 2 puffs every 6 hours only as needed and is no longer using his preventati ve medicine such as Advair Memory impairment 688746 006 R41.3 His memory impairment is getting worse out of extended private discussion with his today outside of this patient's presence she informs me that he is confused often and becoming very possessive of her and sad to watch his decline making her depressed Onychomycosis 117262291 B35.1 He still has a little toenail fungus of all of his problems is really the least of his issues with only a minor issue on his left great toe he is completed a course of Lamisil. Basal cell carcinoma of skin [id number] C44.91 I recommende d to get the small basal cell the right side of his face surgically removed we have made alma ts for a plastic surgeon to see him [id number] Jacki Mayen MD [facility] [place] [address] [place] [address] [place] [address] [place] [address] 03/24/2022 12:46:01 03/24/2022 15:39:53 Adult health examination 871004592 Z00.00 Annual Wellness Visit done today Advance care planning 71 6201370 Z71.89 Active or passive immunization 789055000 Z23 Prostate s pecific antigen above reference range 463460190 R97.20 Dementia 68686870 F03.90 Blood in urine 78986606 R31.9 Memory impairment 567223 006 R41.3 His memory impairment is getting worse out of extended private discussion with his today outside of this patient's presence she informs me that he is confused often and becoming very possessive of her and sad to watch his decline making her depressed Asthma 931037279 J45.90 9 Has had a lifetime of asthma reactive airways disease and is now using the albuterol 2 puffs every 6 hours only as needed and is no longer using his preventati ve medicine such as Advair Gastroesop hageal reflux disease 787670618 K21.9 He has gastroesop hageal reflux disease, he does not know what medicine he is taking but he is on Prilosec twice daily of tried him tell him to go to once every other day we have had discussion multiple times before he is no longer taking his sulcal fate his condition is stable and not progressin g Health Concerns Section Related Observation LastModified by Organization Detai ls LastModified Time None Recorded Concern Status LastModified by Organization Details LastModified Time None Recorded Advance Directives Directive N: Payers Encounter Date Sequence Insurance Name Policy Number Policy Glass Covered Member ID Glass Member ID Guarantor Name 08/06/2021 1 [employer] (MEDICARE REPLACEMENT HMO) Oswaldo Young [id number] Oswaldo Young 08/20/2021 1 [employer] (MEDICARE REPLACEMENT HMO) Oswaldo Young [id number] Oswaldo Young 09/17/2021 1 [employer] (MEDICARE REPLACEMENT HMO) Oswaldo Hector [id number] 1 Oswaldo Hector 03/24/2022 1 [employer] (MEDICARE REPLACEMENT HMO) Oswaldo Hector [id number] 1 Oswaldo Hector Notes Date Note Type Note Provider Name and Address Organization Details Recorded Time 08/06/2021 text/html CORONAVIRUS SCREENING [id number]-cit white male comes in today with a painful discoloration of his right thumbnail that has been going on for weeks and weeks he reports no trauma.?Are you experiencing any NEW symptom(s) listed below that is not due to another health problem ?None of the below ?Is anyone else in your household experiencing any NEW symptoms ?No ?In the past 2 weeks did you have close contact (within 6 feet for at least 15 minutes) with someone with symptoms of COVID-19 or who tested positive for COVID-19 ?No ?In the past 2 weeks have you been tested for COVID-19 ?No, I have not been tested ?Why did you get tested? Please select all that apply ?N/A ?In the past 2 weeks has someone in your household tested positive for COVID-19 ?No ?Have you ever received a dose of COVID-19 vaccine?Yes ?Which vaccine product did you receive?Moderna Imported from [email or web address] on 08/06/2021 QUALITY MEASURE QUESTIONNAIRE ?Are you a diabetic patient ?No ?Has the Patient previously received any type of colorectal cancer screener ?No Imported from [email or web address] on 08/06/2021 Jacki Mayen MD [address], [place], [address], [facility], [employer] 08/06/2021 20:22:20 08/20/2021 text/html CORONAVIRUS SCREENING TOOLDiego sosa is a 76-year-old white male comes in today as he does always he takes everything out of his pockets and puts it on the counter by the sink including his wallet keys etc. he then has a large bag of cookies which is probably pretty much every time for the last 5 or 10 years. He then tells me that he had a lesion on his face which she lanced and he has 3 others he wants me to check for completeness.?Are you experiencing any NEW symptom(s) listed below that is not due to another health problem ?None of the below ?Is anyone else in your household experiencing any NEW symptoms ?No ?In the past 2 weeks did you have close contact (within 6 feet for at least 15 minutes) with someone with symptoms of COVID-19 or who tested positive for COVID-19 ?No ?In the past 2 weeks have you been tested for COVID-19 ?No, I have not been tested ?Why did you get tested? Please select all that apply ?N/A ?In the past 2 weeks has someone in your household tested positive for COVID-19 ?No Imported from [facility] on 08/20/2021 Jacki Mayen MD [address] [facility] [address], [place], [address], [facility], [facility] 08/20/2021 19:04:39 09/17/2021 text/html CORONAVIRUS SCREENING TOOL for 6-month Medicare follow-up is not really sure exactly what is going on today why he is here as best I can sort out he wants to review his asthma and the treatment of that he does not know which inhaler she is using he wants to talk about his memory impairment but does want to take any medicine for he wants to talk about his toenail fungus though is not sure he still taking the Lamisil I gave him before then he wants to talk about his skin cancer on his face in great detail and what should be done about it he still has not seen the plastic surgeon I referred him Shan is a very nice 76-year-old white male who comes in today?Are you experiencing any NEW symptom(s) listed below that is not due to another health problem ?None of the below ?Is anyone else in your household experiencing any NEW symptoms ?No ?In the past 2 weeks did you have close contact (within 6 feet for at least 15 minutes) with someone with symptoms of COVID-19 or who tested positive for COVID-19 ?No ?In the past 2 weeks have you been tested for COVID-19 ?No, I have not been tested ?Why did you get tested? Please select all that apply ?N/A ?In the past 2 weeks has someone in your household tested positive for COVID-19 ?No Imported from [email or web address] on 09/17/2021 Jacki Mayen MD [address], [place], [address], [facility], [facility] 09/17/2021 19:15:56 03/24/2022 text/html Medicare Annual Wellness VisitReported bypatient.Visit type:subsequent Medicare Annual Wellness visit PMH/FH/Rx and Social History Review:updated EMR in appropriate tabs; other providers updated This is an obese 76 year-old white male with mild dementia, here for his annual physical exam and wellness visit. He has asthma that is controlled with Wixela Inhub 250 mcg-50 mcg one puff twice a day and an occasional albuterol sulfate HFA 90 mcg two puffs every 6 hours for rescue. Separately, his tells me that his dementia is getting worse and she is requesting consideration for and that he insists on eating out almost every night and loves [employer]. When asked how his diet is he tells me that he only eats out every other month and they like to go to [employer]. He tells me that his dementia is not good but not bad and not changing. He had annual labs done on 03/17/22 and the results were reviewed today. He has no new complaints today. Jacki Mayen MD [address] [address], [place], [address], [facility], [facility] 03/24/2022 16:34:05
== END ==
LOC: HO.CARD 12:01
PROVIDERS: PCP Nurse Practitioner Family; Visit Provider Nurse Practitioner Family
DX: Z01.818 Encounter for other preprocedural examination (principal)
CPT/HCPCS: 93005

== ENCOUNTER → 2024-09-17 12:06 | Outpatient (BNV) | payer MEDICARE, SELFPAY | PROVIDERS: PCP Nurse Practitioner Family; Visit Provider Internal Medicine Cardiovascular Disease | DX: R94.31 Abnormal electrocardiogram [ECG] [EKG] (principal); Z01.810 Encounter for preprocedural cardiovascular examination | CPT/HCPCS: 93010 ==

== ENCOUNTER 2024-09-24 08:01 | Outpatient (AMB) | payer MEDICARE, SELFPAY ==
--- NOTE | 2024-09-24 07:33 | MHC.OFFVIS ---
Intake Visit Reasons: pre op - vitractomy ( ekg done ) Allergies No Known Allergies Allergy (Verified 09/24/24 07:33) Medication List - Last Reconciled 09/24/24 by ARASELI Hernandez- albuterol sulfate 90 mcg/actuation 2 puffs inhalation Q6-8H PRN albuterol sulfate 90 mcg/actuation 2 inhalations inhalation Q6H PRN 30 days cholecalciferol (vitamin D3) 50 mcg PO DAILY famotidine 20 mg PO BEDTIME finasteride 5 mg PO DAILY 90 days fluticasone propion-salmeterol 250-50 mcg/dose (Wixela Inhub) 1 ea inhalation BID PRN losartan-hydrochlorothiazide 50-12.5 mg 1 tab PO DAILY omeprazole 40 mg PO DAILY rosuvastatin 10 mg PO DAILY HPI HPI pre op - vitractomy ( ekg done ): Details: History of Present Illness The patient is a 79-year-old male presenting with a need for a pre-operative evaluation for an upcoming vitrectomy of the right eye. His EKG, conducted recently, shows no changes; he denies any chest pain or shortness of breath and has no signs of infection noted. The patient has sleep apnea but refuses to comply with CPAP usage. Pre-operative requirements include laboratory tests prior to medical clearance. Review of Systems - Cardiovascular: Denies chest pain. - Respiratory: Denies shortness of breath; denies signs of infection. - General: Denies signs of infection (fevers, chills, s/s of lymphadenopathy) Plan The patient's care plan includes notifying the anesthesia team about the sleep apnea condition, considering his refusal to use CPAP. The completion of laboratory tests before clearance is essential for operative preparation. The EKG remains unchanged, confirming the patient's stable cardiac condition. It is imperative that pre-operative steps progress without delay to ensure readiness for the vitrectomy procedure. Discussion Notes I discussed with the patient the importance of informing the anesthesia team about his sleep apnea, particularly given his refusal to use CPAP, which could impact their management during surgery. We also reviewed the need for pre-operative laboratory evaluations to secure medical clearance and the stability of his cardiac status as evidenced by the recent EKG. Ensuring these steps are taken will facilitate readiness for his scheduled vitrectomy at the month's end. Patient Instructions - Arrange for pre-operative lab work as soon as possible. - Inform the anesthesia team about sleep apnea and CPAP non-compliance. - Monitor for any signs of infection and report if they occur. - Follow all pre-surgical instructions provided by the surgical team. [facility] Medical History VIANEY on CPAP Macular hole Pulmonary nodules Atelectasis Mild cognitive impairment Nodule of parotid gland Alzheimer disease Short-term memory loss Testicular hypofunction Lipoma Vitamin D deficiency Insomnia Osteoarthritis Impotence Asthma GERD (gastroesophageal reflux disease) Sleep apnea Surgical History H/O wrist surgery H/O colonoscopy History of esophagogastroduodenoscopy (EGD) Family History Father Stroke Social History Housing: Apartment Patient Tobacco Use Status: Never used Tobacco e-Cigarette/Vaping Use: Never Used Second Hand Smoke Exposure: No service: Yes Current occupational status: retired Cognitive needs: No Hearing needs: No Vision needs: No Telehealth Telehealth Telehealth Platform: [facility] Location of provider rendering services: practice address Location of patient: address on file Patient Identification confirmed using: Name, : Yes Telehealth method: video Patient verbally consented to treatment: Yes Patient verbally consented to billing insurance company: Yes Patient informed of any privacy concerns related to visit: Yes Minutes spent on Phone/Video with Pt.: 12 Assessment & Plan Assessment & Plan (1) Pre-op evaluation: Code(s): Z01.818 - Encounter for other preprocedural examination Category: Medical Plan . Orders: Orders Complete Blood Count Auto Diff Today Z - Encounter for other preprocedural examination Comprehensive Met. Panel Today - Encounter for other preprocedural examination TSH reflex Free T4 Today Z - Encounter for other preprocedural examination Partial Thromboplastin Time Today Z818 - Encounter for other preprocedural examination UA CC w/rflx Micro + Cult Today Z - Encounter for other preprocedural examination Prothrombin Time INR Today Z01.818 - Encounter for other preprocedural examination Coding Level of Care Code Tele Est Pt Level 3 (58734) Diagnoses Pre-op evaluation Z01.818
--- OUTSIDE RECORDS SUMMARY | 2024-09-24 08:07 | XMS_ITS | Data Portability ---
Author Organization [place] - [employer], [employer], [facility] Address [address] [place] [address] Care Team Providers Care Sample Collector Name Role Phone JACKI MAYEN Primary Care Provider Assessment Encounter Date Assessment Date Assessment LastModified by Organization Details LastModified Time 08/06/2021 08/06/2021 Uncle by ptosis of the right first fingernail debridement with Turkmen toenail lateral and binocular microscope down to healthy tissue local care including vinegar or what ever drops he got at the pharmacy but Lamisil 250 daily for 90 days. Reassess in 3 months to see if it is better [email or web address] Not available 08/06/2021 12:41:02 08/20/2021 08/20/2021 Basal cell carcinoma the face recommend plastic surgical removal other lesions are benign. Make necessary referral [email or web address] Not available 08/20/2021 14:35:09 03/24/2022 03/24/2022 1. [...] office. Follow up other ansari as needed. [email or web address] Not available 03/24/2022 14:01:11 Plan of Treatment Reminders Order Date Submit Date Provider Last Modified By Organization Details Last Modified Time Details Appointments None recorded. Lab noninvasive colorectal cancer DNA + occult blood screening, QL, stool 2021 [employer] (Cologuard Orders Only), [address], [address], [place], [address], 22:18:26 Referral urologist referral - Please call the patient to schedule an appointment . 2021 022 [id number] Ricki Ellis MD ([facility]), [address] [place] [address] Rd, [address], [place], [address], 14:53:17 plastic surgeon referral - please call pt to schedule appointment 2021 022 [email or web address] 15 Derian Lopez MD, [address] [place] [address], [facility] [address], [address], 16:27:18 Procedures None recorded. Surgeries None recorded. Imaging None recorded. Medication Orders terbinafine HCl 250 mg tablet 2021 022 [id number] [id number], [address], [address], 10:51:20 Patient TargetsNo targets recorded. Patient Instructions Encounter Date Encounter Id Patient Instructions Last Modified By Organization Details Last Modified Time 03/24/2022 [id number] advance directives: care instructions [email or web address] Not available 03/24/2022 14:01:45 learning about living stokes [email or web address] Not available 03/24/2022 14:01:45 do not rescuscitate education [email or web address] Not available 03/24/2022 14:01:45 Advance Directives Education w/sample forms for Living Will/Health Care Surrogate [email or web address] Not available 03/24/2022 14:01:45 Reason for Referral Plastic Surgeon Referral for Basal cell carcinoma of skin please call pt to schedule appointment Referring Physician: Jacki Mayen, Pediatric Internal Medicine, Encounter Date: 08/20/2021 Urologist Referral for Prost ate specific antigen above reference range Please call the patient to schedule an appointment. Referring Physician: Jacki Mayne, Pediatric Internal Medicine, Encounter Date: 03/24/2022 Results [...] of 10,00 0 indiv idual s at [place] risk for color ectal cance r [...] asymp tomat ic indiv idual s at [facility] risk for color ectal cance [...] 112:1 016-1 030. TEST DESCR IPTIO N: [place] site algor ithmi c kylee sis of [...] years or older , who are at [facility] for color ectal cance r (CRC) . Colog uard has been appro fausto for use by the [place] FDA. The perfo rmanc e of Colog uard was estab lishe d in a cross secti onal study of [facility] adult s aged 50-84 . Colog uard perfo rmanc e in patie nts ages 45 to 49 years was estim ated by sub-g roup kylee sis of near- age group s. Colon oscop ies perfo rmed for a posit hermelindo resul t may find as the most clini rtu signi fican t lesio n: color ectal [...] study of 0 indiv idual s at [facility] risk for color ectal cance [...] at [email or web address] [email or web address] om. Not Available [employer] (Cologuard Orders Only) [address], [place], [address], 09/06/2021 22:18:26 03/17/20 22 03/17/2022 URINA LYSIS , COMPL ETE W/ REFLE X TO CULTU RE urinalysis reflex COMMEN T This speci men will not refle x to a Urine Cultu re. Not Available [facility] [address] [place], [place] [address]y [address], [place], [address], 03/18/2022 06:09:13 03/17/20 22 03/18/2022 URINA LYSIS , COMPL ETE W/ REFLE X TO CULTU RE specific gravity 1.020 1.005- 1.030 normal Not Available [facility] [address] [place], [place] [address]y [address], [place], [address], 03/18/2022 06:09:13 03/17/20 22 03/18/2022 URINA LYSIS , COMPL ETE W/ REFLE X TO CULTU RE pH 5.5 5.0-7. 5 normal Not Available [facility] [address] [place], [place] [address], [place], [address], 03/18/2022 06:09:13 03/17/20 22 03/18/2022 URINA LYSIS , COMPL ETE W/ REFLE X TO CULTU RE urine-color YELLOW yellow normal Not Available [facility] [address] [place], [place] [address], [place], [address], 03/18/2022 06:09:13 03/17/20 22 03/18/2022 URINA LYSIS , COMPL ETE W/ REFLE X TO CULTU RE appearance CLEAR clear normal Not Available [facility] [address], [place], [address], 03/18/2022 06:09:13 03/17/20 22 03/18/2022 URINA LYSIS , COMPL ETE W/ REFLE X TO CULTU RE WBC esterase NEGATI VE negati ve normal Not Available [facility] [address] [place], [place] [address], [place], [address], 03/18/2022 06:09:13 03/17/20 22 03/18/2022 URINA LYSIS , COMPL ETE W/ REFLE X TO CULTU RE protein TRACE negati ve/tra ce normal Not Available [facility] [place] [facility] [address] [facility] [address], [place], [address], 03/18/2022 06:09:13 03/17/20 22 03/18/2022 URINA LYSIS , COMPL ETE W/ REFLE X TO CULTU RE glucose NEGATI VE negati ve normal Not Available [facility] [address] [facility] [address], [place], [address], 03/18/2022 06:09:13 03/17/20 22 03/18/2022 URINA LYSIS , COMPL ETE W/ REFLE X TO CULTU RE ketones NEGATI VE negati ve normal Not Available [facility] [address], [place], [address], 03/18/2022 06:09:13 03/17/20 22 03/18/2022 URINA LYSIS , COMPL ETE W/ REFLE X TO CULTU RE occult blood TRACE negati ve abnormal Not Available [facility] [address] [place], [address], 03/18/2022 06:09:13 03/17/20 22 03/18/2022 URINA LYSIS , COMPL ETE W/ REFLE X TO CULTU RE bilirubin NEGATI VE negati ve normal Not Available [facility] [address] [facility] [address] [place], [address], 03/18/2022 06:09:13 03/17/20 22 03/18/2022 URINA LYSIS , COMPL ETE W/ REFLE X TO CULTU RE urobilinogen ,semi-qn 0.2 mg/dL 0.2-1. 0 normal Not Available [facility] [address] [facility] [address], [place], [address], 03/18/2022 06:09:13 03/17/20 22 03/18/2022 URINA LYSIS , COMPL ETE W/ REFLE X TO CULTU RE nitrite, urine NEGATI VE negati ve normal Not Available [facility] [address], [place], [address], 03/18/2022 06:09:13 03/17/20 22 03/18/2022 URINA LYSIS , COMPL ETE W/ REFLE X TO CULTU RE microscopic examination SEE BELOW: normal Micro scopi c was indic ated and was perfo rmed. Not Available [facility] [address] [facility] [address], [place], [address], 03/18/2022 06:09:13 03/17/20 22 03/18/2022 URINA LYSIS , COMPL ETE W/ REFLE X TO CULTU RE WBC 0-5 /hpf 0 - 5 normal Not Available [facility] [address] [place], [address], 03/18/2022 06:09:13 03/17/20 22 03/18/2022 URINA LYSIS , COMPL ETE W/ REFLE X TO CULTU RE RBC 3-10 /hpf 0 - 2 abnormal Not Available [facility] [address] [facility] [address], [place], [address], 03/18/2022 06:09:13 03/17/20 22 03/18/2022 URINA LYSIS , COMPL ETE W/ REFLE X TO CULTU RE epithelial cells (non renal) NONE SEEN /hpf 0 - 10 normal Not Available [facility] [place] [facility] [address] [facility] [address], [place], [address], 03/18/2022 06:09:13 03/17/20 22 03/18/2022 URINA LYSIS , COMPL ETE W/ REFLE X TO CULTU RE casts NONE SEEN /lpf none seen normal Not Available [facility] [address], [place], [address], 03/18/2022 06:09:13 03/17/20 22 03/18/2022 URINA LYSIS , COMPL ETE W/ REFLE X TO CULTU RE bacteria NONE SEEN none seen/f ew normal Not Available [facility] [address] [facility] [address], [place], [address], 03/18/2022 06:09:13 03/17/20 22 03/18/2022 CBC W/ AUTOD IFF, COMPL ETE BLOOD COUNT WBC 10.5 x10e3 /uL 3.4-10 .8 normal Not Available [facility] [address] [place], [place] [address] [address], [place], [address], 03/18/2022 08:11:26 03/17/20 22 03/18/2022 CBC W/ AUTOD IFF, COMPL ETE BLOOD COUNT RBC 4.92 x10e6 /uL 4.14-5 .80 normal Not Available [facility] [address] [place], [place] [address], [place], [address], 03/18/2022 08:11:26 03/17/20 22 03/18/2022 CBC W/ AUTOD IFF, COMPL ETE BLOOD COUNT hemoglobin 15.2 g/dL 13.0-1 7.7 normal Not Available [facility] [address] [place], [address], 03/18/2022 08:11:26 03/17/20 22 03/18/2022 CBC W/ AUTOD IFF, COMPL ETE BLOOD COUNT hematocrit 46.2 % 37.5-5 1.0 normal Not Available [facility] [address] [place], [place] [address], [place], [address], 03/18/2022 08:11:26 03/17/20 22 03/18/2022 CBC W/ AUTOD IFF, COMPL ETE BLOOD COUNT MCV 94 fL 79-97 normal Not Available [facility] [address], [place], [address], 03/18/2022 08:11:26 03/17/20 22 03/18/2022 CBC W/ AUTOD IFF, COMPL ETE BLOOD COUNT MCH 30.9 pg 26.6-3 3.0 normal Not Available [facility] [address], [place], [address], 03/18/2022 08:11:26 03/17/20 22 03/18/2022 CBC W/ AUTOD IFF, COMPL ETE BLOOD COUNT MCHC 32.9 g/dL 31.5-3 5.7 normal Not Available [facility] [address], [place], [address], 03/18/2022 08:11:26 03/17/20 22 03/18/2022 CBC W/ AUTOD IFF, COMPL ETE BLOOD COUNT RDW 12.0 % 11.6-1 5.4 normal Not Available [facility] [address] [place], [address], 03/18/2022 08:11:26 03/17/20 22 03/18/2022 CBC W/ AUTOD IFF, COMPL ETE BLOOD COUNT platelets 292 x10e3 /uL 150-45 0 normal Not Available [facility] [address], [place], [address], 03/18/2022 08:11:26 03/17/20 22 03/18/2022 CBC W/ AUTOD IFF, COMPL ETE BLOOD COUNT neutrophils 74 % not estab. normal Not Available [facility] [address], [place], [address], 03/18/2022 08:11:26 03/17/20 22 03/18/2022 CBC W/ AUTOD IFF, COMPL ETE BLOOD COUNT lymphs 18 % not estab. normal Not Available [facility] [address] [facility] [address], [place], [address], 03/18/2022 08:11:26 03/17/20 22 03/18/2022 CBC W/ AUTOD IFF, COMPL ETE BLOOD COUNT monocytes 6 % not estab. normal Not Available [facility] [address] [facility] [address], [place], [address], 03/18/2022 08:11:26 03/17/20 22 03/18/2022 CBC W/ AUTOD IFF, COMPL ETE BLOOD COUNT eos 1 % not estab. normal Not Available [facility] [address] [facility] [address], [place], [address], 03/18/2022 08:11:26 03/17/20 22 03/18/2022 CBC W/ AUTOD IFF, COMPL ETE BLOOD COUNT basos 1 % not estab. normal Not Available [facility] [address] [facility] [address], [place], [address], 03/18/2022 08:11:26 03/17/20 22 03/18/2022 CBC W/ AUTOD IFF, COMPL ETE BLOOD COUNT neutrophils (absolute) 7.7 x10e3 /uL 1.4-7. 0 high Not Available [facility] [address] [facility] [address], [place], [address], 03/18/2022 08:11:26 03/17/20 22 03/18/2022 CBC W/ AUTOD IFF, COMPL ETE BLOOD COUNT lymphs (absolute) 1.9 x10e3 /uL 0.7-3. 1 normal Not Available [facility] [address] [facility] [address], [place], [address], 03/18/2022 08:11:26 03/17/20 22 03/18/2022 CBC W/ AUTOD IFF, COMPL ETE BLOOD COUNT monocytes(ab solute) 0.7 x10e3 /uL 0.1-0. 9 normal Not Available [facility] [address] [place] [address] [address], [place], [address], 03/18/2022 08:11:26 03/17/20 22 03/18/2022 CBC W/ AUTOD IFF, COMPL ETE BLOOD COUNT eos (absolute) 0.2 x10e3 /uL 0.0-0. 4 normal Not Available [facility] [address] [place] [address] [address], [place], [address], 03/18/2022 08:11:26 03/17/20 22 03/18/2022 CBC W/ AUTOD IFF, COMPL ETE BLOOD COUNT baso (absolute) 0.1 x10e3 /uL 0.0-0. 2 normal Not Available [facility] [address] [place] [address] [address], [place], [address], 03/18/2022 08:11:26 03/17/20 22 03/18/2022 CBC W/ AUTOD IFF, COMPL ETE BLOOD COUNT immature granulocytes 0 % not estab. normal Not Available [facility] [address] [place] [address] [address], [place], [address], 03/18/2022 08:11:26 03/17/20 22 03/18/2022 CBC W/ AUTOD IFF, COMPL ETE BLOOD COUNT immature grans (abs) 0.0 x10e3 /uL 0.0-0. 1 normal Not Available [facility] [address] [place] [address] [address], [place], [address], 03/18/2022 08:11:26 03/17/20 22 03/18/2022 CK creatine kinase,total 225 U/L 41-331 normal Not Available [facility] [address] [facility], [place], [address], 03/18/2022 08:11:27 03/17/20 22 03/18/2022 CMP, COMPR EHENS HERMELINDO METAB OLIC PANEL glucose 103 mg/dL 65-99 high Not Available [facility] [address] [facility] [address], [place], [address], 03/18/2022 08:11:28 03/17/20 22 03/18/2022 CMP, COMPR EHENS HERMELINDO METAB OLIC PANEL BUN 15 mg/dL 8-27 normal Not Available [facility] [address] [facility] [address], [place], [address], 03/18/2022 08:11:28 03/17/20 22 03/18/2022 CMP, COMPR EHENS HERMELINDO METAB OLIC PANEL creatinine 1.12 mg/dL 0.76-1 .27 normal Not Available [facility] [address] [facility] [address], [place], [address], 03/18/2022 08:11:28 03/17/20 22 03/18/2022 CMP, COMPR EHENS HERMELINDO METAB OLIC PANEL eGFR 69 mL/mi n/1.7 3 >59 normal Not Available [facility] [address] [facility] [address], [place], [address], 03/18/2022 08:11:28 03/17/20 22 03/18/2022 CMP, COMPR EHENS HERMELINDO METAB OLIC PANEL BUN/creatini ne ratio 13 10-24 normal Not Available [facility] [address] [facility] [address], [place], [address], 03/18/2022 08:11:28 03/17/20 22 03/18/2022 CMP, COMPR EHENS HERMELINDO METAB OLIC PANEL sodium 140 mmol/ L 134-14 4 normal Not Available [facility] [address] [facility] [address], [place], [address], 03/18/2022 08:11:28 03/17/20 22 03/18/2022 CMP, COMPR EHENS HERMELINDO METAB OLIC PANEL potassium 4.3 mmol/ L 3.5-5. 2 normal Not Available [facility] [address] [facility], [place], [address], 03/18/2022 08:11:28 03/17/2003/18/2022 CMP, COMPR EHENS HERMELINDO METAB OLIC PANEL chloride 100 mmol/ L 96-106 normal Not Available [facility] [address] [facility] [address], [place], [address], 03/18/2022 08:11:28 03/17/20 22 03/18/2022 CMP, COMPR EHENS HERMELINDO METAB OLIC PANEL carbon dioxide, total 26 mmol/ L 20-29 normal Not Available [facility] [address] [facility], [place], [address], 03/18/2022 08:11:28 03/17/20 22 03/18/2022 CMP, COMPR EHENS HERMELINDO METAB OLIC PANEL calcium 9.9 mg/dL 8.6-10 .2 normal Not Available [facility] [address] [facility] [address], [place], [address], 03/18/2022 08:11:28 03/17/2003/18/2022 CMP, COMPR EHENS HERMELINDO METAB OLIC PANEL protein, total 7.2 g/dL 6.0-8. 5 normal Not Available [facility] [address] [facility] [address], [place], [address], 03/18/2022 08:11:28 03/17/20 22 03/18/2022 CMP, COMPR EHENS HERMELINDO METAB OLIC PANEL albumin 5.0 g/dL 3.7-4. 7 high Not Available [facility] [address] [facility] [address], [place], [address], 03/18/2022 08:11:28 03/17/20 22 03/18/2022 CMP, COMPR EHENS HERMELINDO METAB OLIC PANEL globulin, total 2.2 g/dL 1.5-4. 5 normal Not Available [facility] [address], [place], [address], 03/18/2022 08:11:28 03/17/2003/18/2022 CMP, COMPR EHENS HERMELINDO METAB OLIC PANEL A/G ratio 2.3 1.2-2. 2 high Not Available [facility] [address], [place], [address], 03/18/2022 08:11:28 03/17/20 22 03/18/2022 CMP, COMPR EHENS HERMELINDO METAB OLIC PANEL bilirubin, total 0.6 mg/dL 0.0-1. 2 normal Not Available [facility] [address], [place], [address], 03/18/2022 08:11:28 03/17/20 22 03/18/2022 CMP, COMPR EHENS HERMELINDO METAB OLIC PANEL alkaline phosphatase 139 IU/L 44-121 high Not Available [facility] [address] [facility] [address], [place], [address], 03/18/2022 08:11:28 03/17/2003/18/2022 CMP, COMPR EHENS HERMELINDO METAB OLIC PANEL AST (SGOT) 24 IU/L 0-40 normal Not Available [facility] [address], [place], [address], 03/18/2022 08:11:28 03/17/20 22 03/18/2022 CMP, COMPR EHENS HERMELINDO METAB OLIC PANEL ALT (SGPT) 29 IU/L 0-44 normal Not Available [facility] [address] [facility], [place], [address], 03/18/2022 08:11:28 03/17/20 22 03/18/2022 LIPID PANEL REF DLDL cholesterol, total 222 mg/dL 100-19 9 high Not Available [facility] [place] [facility] [address] [facility] [address], [place], [address], 03/18/2022 08:11:29 03/17/20 22 03/18/2022 LIPID PANEL REF DLDL triglyceride s 113 mg/dL 0-149 normal Not Available [facility] [address] [facility] [address] [place], [address], 03/18/2022 08:11:29 03/17/20 22 03/18/2022 LIPID PANEL REF DLDL HDL cholesterol 44 mg/dL >39 normal Not Available [facility] [address] [facility] [address] [place], [address], 03/18/2022 08:11:29 03/17/20 22 03/18/2022 LIPID PANEL REF DLDL LDL chol calc ([facility]) 158 mg/dL 0-[address] [facility] [address] [facility] [address], [place], [address], 03/18/2022 08:11:29 03/17/20 22 03/18/2022 LIPID PANEL REF DLDL T. chol/HDL ratio 5.0 ratio 0.0-5. 0 normal T. Chol/ HDL Ratio Men Women 1/2 Avg.R isk 3.4 3.3 Avg.R isk 5.0 4.4 2X Avg.R isk 9.6 7.1 3X Avg.R isk 23.4 11.0 Not Available [facility] [place] [facility] [address] [facility] [address] [place], [address], 03/18/2022 08:11:29 03/17/20 22 03/18/2022 LIPID PANEL REF DLDL LDL/HDL ratio 3.6 ratio 0.0-3. 6 normal LDL/H DL Ratio Men Women 1/2 Avg.R isk 1.0 1.5 Avg.R isk 3.6 3.2 2X Avg.R isk 6.2 5.0 3X Avg.R isk 8.0 6.1 Not Available [facility] [address] [facility] [address] [place], [address], 03/18/2022 08:11:29 03/17/20 22 03/18/2022 LIPID PANEL REF DLDL LDL chol. (direct) 152 mg/dL 0-99 high Not Available [facility] [address] [facility] [address] [place], [address], 03/18/2022 08:11:29 03/17/20 22 03/18/2022 PSA DIAGN [...] t be inter prete d as absol la posta evide nce of the prese nce or absen ce of nidia oscar disea se. Not Available [facility] [address] [facility] [address] [place], [address], 03/18/2022 08:11:30 03/17/20 22 03/18/2022 VITAM IN [...] um and D. Basilia jacobs [place]: [facility] . 2. Graham pineda [place], Raffaele rasmussen [place], Nikcy off-F sumit i FLORES, et al. Evalu ation , treat ment, and preve ntion of vitam in D defic iency : an Endoc rine Socie ty clini concha pract ice guide line. JCEM. 2010; 96(7) :1911 -30. Not Available [facility] [address] [place], [address], 03/18/2022 08:11:31 03/17/20 22 03/17/2022 VENIP UNCTU RE results Compl ete Not Available [facility] [address], [place], [address], 03/17/2022 09:15:24 03/19/20 22 03/20/2022 PSA (FREE [...] t be inter prete d as absol la posta evide nce of the prese nce or absen ce of cesario shelby se. Not Available [facility] [address], [place], [address], 03/20/2022 08:11:48 03/19/20 22 03/20/2022 PSA (FREE AND TOTAL ) PSA, free 0.76 NG/mL n/a normal Willam ECLIA metho dolog y. Not Available [facility] [address], [place], [address], 03/20/2022 08:11:48 03/19/20 22 03/20/2022 PSA (FREE [...] other popul ation of men. Not Available [facility] [address], [place], [address], 03/20/2022 08:11:48 03/19/20 22 03/20/2022 TESTO STERO NE testosterone 238 NG/dL 264-91 6 low Adult male refer ence inter keaton is based on a popul ation of healt hy nonob aron males (BMI <30) betwe en 19 and 39 years old. Velia sanderson et.al . JCEM 2017, 102;1 161-1 173. PMID: 57880 103. Not Available [facility] [address], [place], [address], 03/20/2022 08:11:49 03/19/20 22 03/19/2022 VENIP UNCTU RE results Compl ete Not Available [facility] [address], [place], [address], 03/19/2022 09:55:12 Result Notes None recorded. 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 Not Available [facility] 2 22:12:54 Persistent insomnia 899568407 Active Not Available [facility] 2 22:12:55 Asthma 371067512 Active Not Available [facility] 2 22:12:54 Generalized anxiety disorder 30944156 Active 2017 Not Available [facility] 2 22:12:54 Gastroesophag eal reflux disease 169865752 Active Not Available [facility] 2 22:12:55 Basal cell carcinoma of skin 205797545 Active 2019 Not Available [facility] 2 22:12:55 Pure hypercholeste rolemia 646933780 Active Not Available [facility] 2 22:12:54 Vitamin D deficiency 07580945 Active 2016 [facility] Available [facility] 2 22:12:54 Memory impairment 920848643 Active 2016 Not Available [facility] 2 22:12:[facility] Osteoarthriti s 061707540 Active 2016 Not Available [facility] 2 22:12:54 Obesity 563370758 Active 2017 Not Available [facility] 2 22:12:54 Allergic conjunctiviti s 529169837 Active Not Available [facility] 2 22:12:54 Hip pain 70206901 Active Not Available [facility] 2 22:12:55 Allergic rhinitis 66892790 Active Not Available [facility] 2 22:12:55 Sleep apnea 97733231 Active 2016 Not Available [facility] 2 22:12:55 Problem Notes None recorded. Procedures Surgical History Date Name Laterality Status Provider Name and Address Organization Details Recorded Time 03/24/20 Quality Functional Assessment completed [facility] [place] [place], [facility] 03/24/2022 11:18:07 03/24/20 22 Quality Medication Reviewed and Updated completed [facility] 03/24/2022 11:18:07 03/24/20 22 Quality BMI with follow up completed [facility] 03/24/2022 11:18:07 03/24/20 22 Quality [facility] Planning completed [facility] [facility] [place] [place]24[place]22 11:18:07 03/24/20 22 Quality Incontinence Scre[place] [facility] [place] 11:18:07 03/24/20 22 Medicare AWV-Screening Schedule [place] [facility] 03/24/2022 11:18:07 03/24/20 22 Counseling: Advanced care planning completed MAURO Byrd [facility], [facility] 03/24/2022 13:55:20 03/24/20 22 Quality Fall Risk Assessment completed [facility] [place] [place], [facility] 03/24/2022 11:18:07 08/06/19 22 Nail Debridement completed Maeve Giles [facility], [facility] 08/06/2021 16:05:06 03/15/20 18 Feces-based colorectal cancer DNA [facility] 08/06/2021 09:59:56 07/18/19 colonoscopy completed Tracy Reagan [facility] 08/06/2021 09:58:40 [facility] umbilical hernia [facility] 09:58:31 Imaging Results None recorded. Procedure Notes None recorded. Medical Equipment None Reported. Allergies Allergen ID Allergen Name Allergen Category Reaction Reaction Severity Criticality Documentation Date Start Date Code Code System Note Provider Name and Address Organization Details Recorded Time 260742 Product containin g 3-hydroxy -3-methyl glutaryl- coenzyme A reductase inhibitor (product) medicatio n other moderate Not available 07/18/20212014 73667 009 SNOMED Palpi tatio ns Tracyjerry Reagan [facility], [facility] 12:32:35 Medications Name Sig Start Date [...] Available Not Available Not Available Fluzone High-Dose 1201-0949 (PF) 180 mcg/0.5 mL intramusc ular syringe ADM 0.5ML IM UTD active Not Available Not Available No t Available Fluzone High-Dose 0101-3328 (PF) 180 mcg/0.5 mL intramusc ular syringe [...] Available Not Available Not Available Fluad Quad 1538-8503 (65yr up)(PF) 60 mcg (15 mcg x [...] cm 87 /min 18 /min 97.9 [degF] 93211.4 7 g 184 mm[Hg] 96 mm[Hg] Not Available [facility] 22:11:14 Date Recorded Body height [...] 0 18 /min 98.1 [degF] 34.5 kg/m2 91860.5 9 g 183 mm[Hg] 96 mm[Hg] 177 mm[Hg] 96 mm[Hg] 135 mm[Hg] 84 mm[Hg] MAURO Byrd [place] - [facility], [facility] 2 13:48:29 Date Recorded Body height [...] 0 18 /min 98.2 [degF] 34.5 kg/m2 30515.5 9 g 172 mm[Hg] 99 mm[Hg] 176 mm[Hg] 81 mm[Hg] Jamaica Funk CMA [facility], [facility] 2 14:05:01 Date Recorded Body height Heart rate Pain severity - 0-10 verbal numeric rating [Score] - Reported Respiratory rate Body temperature Body mass index (BMI) Body weight Systolic blood pressure Diastolic blood pressure Systolic blood pressure Diastolic blood pressure Provider Name and Address Organization Details Last Updated DateTime 2 163.83 cm 89 /min 0 18 /min 98.1 [degF] 35 kg/m2 89751.0 2 g 181 mm[Hg] 97 mm[Hg] 171 mm[Hg] 98 mm[Hg] MAURO Byrd [facility], [facility] 2 13:32:03 Date Recorded Body height Heart rate Pain severity - 0-10 verbal numeric rating [Score] - Reported Respiratory rate Body temperature Body mass index (BMI) Body weight Systolic blood pressure Diastolic blood pressure Systolic blood pressure Diastolic blood pressure Provider Name and Address Organization Details Last Updated DateTime 2 163.83 cm 80 /min 0 18 /min 98.5 [degF] 34 kg/m2 69830.4 7 g 183 mm[Hg] 93 mm[Hg] 139 mm[Hg] 85 mm[Hg] Coni Mock [facility], [facility] 2 13:10:43 Social History Question Answer Notes LastModified by Organizat ion Details LastModified Time Tobacco Smoking Status Former Smoker MAURO Byrd [facility], [facility] 08/06/2021 09:58:08 Do You Have An Advance Directive? No [email or web address] Information not available 08/06/2021 What Is Your Level Of Alcohol Consumption? Occasional [email or web address] Information not available 08/06/2021 Are You Currently Employed? 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 16+yearsdiana bond [email or web address] Information not available 08/06/2021 Do You Have A Medical Power Of Brand Mgr? No [email or web address] Information not available 08/06/2021 What Was The Date Of Your Most Recent Tobacco Screening? 08/06/2021 Information not available 08/06/2021 What Is Your Current Pack Years? 10packyears [email or web address] Information not available 08/06/2021 What Is Your Relationship Status? [email or web address] Information not available 08/06/2021 Do You Use Any Illicit Or Recreational Drugs? No [email or web address] Information not available 08/06/2021 Has Tobacco Cessation Counseling Been Provided? No [email or web address] Information not available 08/06/2021 Do You Or Have You Ever Used Any Other Forms Of Tobacco Or Nicotine? No Information not available 08/06/2021 Sex: Unknown Functional Status None recorded. Mental Status None recorded. Family History Relationship Description Onset Age of this Age Resolved Age Notes LastModified by Organization Details LastModified Time Father Cerebrovascu lar accident [email or web address] Not available 09:56:49 Mother Natural [email or web address] Not available 2021 09:57:03 Notes:1 brother, no problems . 2 children alive and well Medical History Condition Response Other Y Sleep disorder/Insomnia Y High Cholesterol Y Hepatitis Y GERD/Ulcer Y Asthma Y Allergies (other than meds) Y Immunizations Vaccine Type Date Status Note Provider Nam e and Address Organization Details Recorded Time Influenza, high-dose, quadrivalent, PF 2 completed Jacki Mayen MD [address] [facility], [place], [address], [facility] - [facility], [facility] 03/24/2022 16:33:59 Influenza, high-dose, trivalent, PF 5 completed Coni Mock [facility] [place] - [facility], [facility] 03/24/2022 11:18:31 Pneumococcal conjugate PCV 13 5 completed Coni Stuski null, [facility], [facility] 03/24/2022 11:18:31 Influenza, split virus, trivalent, preservative 4 completed Coni Stuski null, [facility], [facility] 03/24/2022 11:18:31 Influenza, split virus, quadrivalent, preservative 3 completed Coni Dulski null, [facility], [facility] 03/24/2022 13:11:35 Influenza, split virus, trivalent, preservative 2 completed Coni Stuski null, [facility], [facility] 03/24/2022 11:18:31 Influenza, split virus, trivalent, preservative 4 completed Coni Dulski null, [facility], [facility] 03/24/2022 11:18:31 Influenza, split virus, trivalent, preservative 3 completed Coni Stuski null, [facility], [facility] 03/24/2022 11:18:31 zoster live 0 completed Coni Dulski null, [facility], [facility] 03/24/2022 11:18:31 tetanus toxoid, unspecified formulation 0 completed Coni Dulski null, [facility], [facility] 03/24/2022 11:18:31 pneumococcal, unspecified formulation 0 completed Coni Dulski null, [facility], [facility] 03/24/2022 11:18:31 Influenza, adjuvanted, trivalent, PF 8 completed Coni Dulski null, [facility], [facility] 03/24/2022 11:18:31 Influenza, split virus, quadrivalent, PF 0 completed Coni Stuski null, [facility], [facility] 03/24/2022 11:18:31 tetanus toxoid, unspecified formulation 0 completed Coni Dulski null, [facility], [facility] 03/24/2022 11:18:31 Influenza, high-dose, trivalent, PF 6 completed Coni Dulski null, [facility], [facility] 03/24/2022 11:18:31 Influenza, high-dose, quadrivalent, PF 1 completed Coni Dulski null, [facility], [facility] 03/24/2022 11:18:31 Influenza, split virus, trivalent, preservative 3 completed Coni Dulski null, [facility], [facility] 03/24/2022 11:18:31 COVID-19, mRNA, LNP-S, PF, 100 mcg/0.5mL dose or 50 mcg/0.25mL dose 1 completed Coni Dulski null, [facility], [facility] 03/24/2022 11:18:31 Influenza, split virus, trivalent, PF 0 completed Ocni Dulski null, [facility], [facility] 03/24/2022 11:18:31 pneumococcal, unspecified formulation 0 completed Coni Dulski null, [facility], [facility] 03/24/2022 11:18:31 Influenza, high-dose, trivalent, PF 7 completed Coni Dulski null, [facility], [facility] 03/24/2022 11:18:31 Influenza, split virus, quadrivalent, PF 0 completed Coni Dulski null, [facility], [facility] 03/24/2022 11:18:31 COVID-19, mRNA, LNP-S, PF, 100 mcg/0.5mL dose or 50 mcg/0.25mL dose 1 completed Coni Dulski null, [facility], [facility] 03/24/2022 11:18:31 COVID-19, mRNA, LNP-S, PF, 100 mcg/0.5mL dose or 50 mcg/0.25mL dose 1 completed Coni napoles, [facility], [facility] 03/24/2022 11:18:31 Influenza, adjuvanted, trivalent, PF 9 completed Coni napoles, [facility], [facility] 03/24/2022 11:18:31 COVID-19, mRNA, LNP-S, PF, 100 mcg/0.5mL dose or 50 mcg/0.25mL dose 2 completed Coni napoles, [facility], [facility] 03/24/2022 11:18:31 Past Encounters Encounter ID Performer Location Encounter Start Date Encounter Closed Date Diagnosis/Indication Diagnosis SNOMED-CT Code Diagnosis ICD10 Code Diagnosis Note [id number] [facility] [place] [address] [place] [address] [place] [address] 01/29/2013 00:00:00 02/16/2013 23:08:01 [id number] [facility] [place] [address] [place] [address] [place] [address] 04/23/2013 00:00:00 04/23/2013 20:09:08 [id number] [facility] [place] [address] [place] [address] [place] [address] 06/04/2013 00:00:00 06/04/2013 19:55:35 [id number] [facility] [place] [address] [place] [address] [place] [address] 06/18/2013 00:00:00 06/19/2013 22:49:49 [id number] [facility] [place] [address] [place] [address] [place] [address] 11/19/2013 00:00:00 11/19/2013 21:27:16 [id number] [facility] [place] [address] [place] [address] [place] [address] 12/25/2013 00:00:00 12/26/2013 21:41:49 [id number] [facility] [place] [address] [place] [address] [place] [address] 04/04/2014 00:00:00 04/04/2014 19:06:34 [id number] [facility] [place] [address] [place] [address] [place] [address] 01/07/2015 00:00:00 01/07/2015 18:27:58 [id number] [facility] [place] [address] [place] [address] [place] [address] 01/28/2015 00:00:00 01/28/2015 21:01:46 [id number] [facility] [place] [address] [place] [address] [place] [address] 04/01/2015 00:00:00 04/01/2015 18:52:17 [id number] [facility] [place] [address] [place] [address] [place] [address] 07/07/2015 00:00:00 07/07/2015 21:44:17 [id number] [facility] [place] [address] [place] [address] [place] [address] 08/07/2015 00:00:00 08/07/2015 21:17:51 [id number] [facility] [place] [address] [place] [address] [place] [address] 09/18/2015 00:00:00 09/18/2015 20:13:45 [id number] [facility] [place] [address] [place] [address] [place] [address] 10/08/2015 00:00:00 10/08/2015 19:09:09 [id number] [facility] [place] [address] [place] [address] [place] [address] 11/20/2015 00:00:00 11/20/2015 21:46:21 [id number] [facility] [place] [address] [place] [address] [place] [address] 12/08/2015 00:00:00 12/08/2015 18:20:53 [id number] [facility] [place] [address] [place] [address] [place] [address] 01/12/2016 00:00:00 01/12/2016 22:02:19 [id number] [facility] [place] [address] [place] [address] [place] [address] 02/11/2016 00:00:00 02/11/2016 20:10:25 [id number] [facility] [place] [address] [place] [address] [place] [address] 03/04/2016 00:00:00 03/04/2016 23:18:13 [id number] [facility] [place] [address] [place] [address] [place] [address] 03/11/2016 00:00:00 03/11/2016 17:49:47 [id number] [facility] [place] [address] [place] [address] [place] [address] 04/14/2016 00:00:00 04/14/2016 21:54:59 [id number] _ATHENA_M IGRATION_ DEFAULT_2 2_1 , 05/24/2016 00:00:00 05/25/2016 08:45:46 [id number] [facility] [place] [address] [place] [address] [place] [address] 06/29/2016 00:00:00 06/29/2016 19:47:09 [id number] [facility] [place] [address] [place] [address] [place] [address] 07/20/2016 00:00:00 07/20/2016 21:34:43 [id number] [facility] [place] [address] [place] [address] [place] [address] 07/22/2016 00:00:00 07/22/2016 20:16:36 [id number] [facility] [place] [address] [place] [address] [place] [address] 02/09/2017 00:00:00 02/09/2017 18:37:59 [id number] [facility] [place] [address] [place] [address] [place] [address] 06/03/2017 00:00:00 06/03/2017 16:36:35 [id number] [facility] [place] [address] [place] [address] [place] [address] 07/06/2017 00:00:00 07/06/2017 17:48:10 [id number] [facility] [place] [address] [place] [address] [place] [address] 10/12/2017 00:00:00 10/13/2017 08:49:40 [id number] [facility] [place] [address] [place] [address] [place] [address] 12/21/2017 00:00:00 12/21/2017 20:00:20 [id number] [facility] [place] [address] [place] [address] [place] [address] 03/07/2018 00:00:00 03/07/2018 16:46:30 [id number] [facility] [place] [address] [place] [address] [place] [address] 05/16/2018 00:00:00 05/16/2018 14:02:35 [id number] [facility] [place] [address] [place] [address] [place] [address] 06/16/2018 00:00:00 06/16/2018 12:12:36 [id number] [facility] [place] [address] [place] [address] [place] [address] 08/14/2018 00:00:00 08/14/2018 18:44:08 [id number] [facility] [place] [address] [place] [address] [place] [address] 09/04/2018 00:00:00 09/04/2018 16:20:16 [id number] [facility] [place] [address] [place] [address] [place] [address] 10/13/2018 00:00:00 10/13/2018 19:44:33 [id number] [facility] [place] [address] [place] [address] [place] [address] 11/30/2018 00:00:00 11/30/2018 19:06:17 [id number] [facility] [place] [address] [place] [address] [place] [address] 12/28/2018 00:00:00 12/28/2018 20:37:18 [id number] [facility] [place] [address] [place] [address] [place] [address] 03/02/2019 00:00:00 03/02/2019 17:55:28 [id number] [facility] [place] [address] [place] [address] [place] [address] 03/12/2019 00:00:00 03/12/2019 19:57:02 [id number] [facility] [place] [address] [place] [address] [place] [address] 04/16/2019 00:00:00 04/16/2019 12:42:36 [id number] [facility] [place] [address] [place] [address] [address] [place] [address] 04/26/2019 00:00:00 04/26/2019 12:57:24 [id number] [facility] [place] [address] [place] [address] [place] [address] 06/04/2019 00:00:00 06/04/2019 19:50:38 [id number] [facility] [place] [address] [place] [address] [place] [address] 06/11/2019 00:00:00 06/11/2019 18:09:56 [id number] [facility] [place] [address] [place] [address] [place] [address] 06/21/2019 00:00:00 06/21/2019 21:27:46 [id number] [facility] [place] [address] [place] [address] [place] [address] 06/29/2019 00:00:00 06/29/2019 20:38:40 [id number] [facility] [place] [address] [place] [address] [place] [address] 07/26/2019 00:00:00 07/26/2019 21:47:48 [id number] [facility]ATION_ DEFAULT_2 2_1 , 09/04/2019 00:00:00 09/04/2019 13:55:20 [id number] [facility] [place] [address] [place] [address] [place] [address] 09/11/2019 00:00:00 09/11/2019 20:24:02 [id number] [facility] [place] [address] [place] [address] [place] [address] 11/08/2019 00:00:00 11/08/2019 10:03:23 [id number] [facility] [place] [address] [place] [address] [place] [address] 12/11/2019 00:00:00 12/11/2019 18:39:53 [id number] [facility] IGRATION_ DEFAULT_2 2_1 , 12/14/2019 00:00:00 12/14/2019 14:36:01 [id number] [facility] [place] [address] [place] [address] [place] [address] 01/15/2020 00:00:00 01/15/2020 13:12:43 [id number] [facility] [place] [address] [place] [address] [place] [address] 03/10/2020 00:00:00 03/10/2020 13:10:45 [id number] [facility] [place] [address] [place] [address] [place] [address] 03/17/2020 00:00:00 03/17/2020 18:38:52 [id number] [facility] [place] [address] [place] [address] [place] [address] 03/27/2020 00:00:00 03/27/2020 16:19:08 [id number] [facility] [place] [address] [place] [address] [place] [address] 04/17/2020 00:00:00 04/17/2020 20:35:51 [id number] [facility] [place] [address] [place] [address] [place] [address] 07/14/2020 00:00:00 07/14/2020 18:25:39 [id number] [facility] [place] [address] [place] [address] [place] [address] 08/04/2020 00:00:00 08/04/2020 20:45:13 [id number] [facility] [place] [address] [place] [address] [place] [address] 08/11/2020 00:00:00 08/11/2020 19:45:31 [id number] [facility] [place] [address] [place] [address] [place] [address] 08/20/2020 00:00:00 08/20/2020 15:42:53 [id number] [facility] [place] [address] [place] [address] [place] [address] 08/25/2020 00:00:00 08/25/2020 16:15:19 [id number] [facility] [place] [address] [place] [address] [place] [address] 09/23/2020 00:00:00 09/23/2020 20:04:26 [id number] [facility] [place] [address] [place] [address] [place] [address] 12/24/2020 00:00:00 12/24/2020 18:44:29 [id number] [facility] [place] [address] [place] [address] [place] [address] 03/18/2021 00:00:00 03/18/2021 14:22:16 [id number] [facility] [place] [address] [place] [address] [place] [address] 04/10/2021 00:00:00 04/10/2021 21:06:05 [id number] Jacki Mayen MD [facility] [place] [address] [place] [address] [address] [place] [address] 08/06/2021 09:15:42 08/06/2021 16:05:26 Screening for malignant neoplasm of colon 271686191 Z12.12 Z12.11 patient unable or unwilling to have colonoscop y; alternativ e screening ordered Onychomycosis 262189440 B35.1 [id number] Jacki Mayen MD [facility] [place] [address] [place] [address] [place] [address] 08/20/2021 13:35:59 08/20/2021 15:31:32 Basal cell carcinoma of skin 814721304 C44.91 [id number] Jacki Mayen MD [facility] [place] [address] [place] [address] [place] [address] 09/17/2021 13:14:55 09/17/2021 14:32:38 Gastroesophageal reflux disease 349125320 K21.9 He has gastroesop hageal reflux disease, he does not know what medicine he is taking but he is on Prilosec twice daily of tried him tell him to go to once every other day we have had discussion multiple times before he is no longer taking his sulcal fate his condition is stable and not progressin g Asthma 776438457 J45.90 9 Has had a lifetime of asthma reactive airways disease and is now using the albuterol 2 puffs every 6 hours only as needed and is no longer using his preventati ve medicine such as Advair Memory impairment 654914 006 R41.3 His memory impairment is getting worse out of extended private discussion with his today outside of this patient's presence she informs me that he is confused often and becoming very possessive of her and sad to watch his decline making her depressed Onychomycosis 682950245 B35.1 He still has a little toenail fungus of all of his problems is really the least of his issues with only a minor issue on his left great toe he is completed a course of Lamisil. Basal cell carcinoma of skin 423138210 C44.91 I recommende d to get the small basal cell the right side of his face surgically removed we have made alma ts for a plastic surgeon to see him [id number] Jacki Mayen MD [facility] [place] [address] [place] [address] [place] [address] 03/24/2022 12:46:01 03/24/2022 15:39:53 Adult health examination 899863614 Z00.00 Annual Wellness Visit done today Advance care planning 71 6958245 Z71.89 Active or passive immunization 514113159 Z23 Prostate s pecific antigen above reference range 132097999 R97.20 Dementia 74964830 F03.90 Blood in urine 74866566 R31.9 Memory impairment 350479 006 R41.3 His memory impairment is getting worse out of extended private discussion with his today outside of this patient's presence she informs me that he is confused often and becoming very possessive of her and sad to watch his decline making her depressed Asthma 837446559 J45.90 9 Has had a lifetime of asthma reactive airways disease and is now using the albuterol 2 puffs every 6 hours only as needed and is no longer using his preventati ve medicine such as Advair Gastroesop hageal reflux disease 880019621 K21.9 He has gastroesop hageal reflux disease, [...] Glass Member ID Guarantor Name 08/06/2021 1 [email or web address] (MEDICARE REPLACEMENT HMO) Oswaldo Young [id number] 01 Oswaldo Young 08/20/2021 1 [email or web address] (MEDICARE REPLACEMENT HMO) Oswaldo Young [id number] 01 Oswaldo Young 09/17/2021 1 [email or web address] (MEDICARE REPLACEMENT HMO) Oswaldo Young [id number] 01 Oswaldo Young 03/24/2022 1 [email or web address] (MEDICARE REPLACEMENT HMO) Oswaldo Young [id number] 01 Oswaldo Young Notes Date Note Type Note Provider Name and Address Organization Details Recorded Time 08/06/2021 text/html CORONAVIRUS SCREENING [id number] white male comes in today with a [...] vaccine product did you receive?Moderna Imported from [facility] on 08/06/2021 QUALITY MEASURE QUESTIONNAIRE ?Are you a diabetic patient ?No ?Has the Patient previously received any type of colorectal cancer screener ?No Imported from [facility] on 08/06/2021 Jacki Mayen MD [address] [facility], [place], [address], [facility] - [facility], [facility] 08/06/2021 20:22:20 08/20/2021 text/html CORONAVIRUS SCREENING TOOLDiego [...] tested positive for COVID-19 ?No Imported from [facility] on 08/20/2021 Jacki Mayen MD [address] [facility], [place], [address], [facility] - [facility], [facility] 08/20/2021 19:04:39 09/17/2021 text/html CORONAVIRUS SCREENING [...] tested positive for COVID-19 ?No Imported from [employer] on 09/17/2021 Jacki Mayen MD [address] [facility] [address], [place], [address], [facility] - [facility], [facility] 09/17/2021 19:15:56 03/24/2022 text/html Medicare Annual [...] month and they like to go to [place]. He tells me that his dementia is not good but not bad and not changing. He had annual labs done on 03/17/22 and the results were reviewed today. He has no new complaints today. Jacki Mayen MD [address] [facility] [address], [place], [address], [facility] - [facility], [facility] 03/24/2022 16:34:05
== END 2024-09-24 08:22 | disposition home or self-care (01) ==
LOC: HO.HMCC 08:01
PROVIDERS: PCP Nurse Practitioner Family; Visit Provider Nurse Practitioner Family
DX: Z01.818 Encounter for other preprocedural examination (principal)

== ENCOUNTER 2024-09-26 10:37 | Outpatient (REF) | payer MEDICARE, SELFPAY ==
--- OUTSIDE RECORDS SUMMARY | 2024-09-26 12:18 | XMS_ITS | Data Portability ---
Author Organization [place] - [facility], Allergy Address [address] [address] Care Team Providers Care Cloth Sponger Name Role Phone HARRIS PENNY Primary Care Provider [phone] Assessment Encounter Date Assessment Date Assessment LastModified by Organization Details LastModified Time 02/10/2024 02/10/2024 Patient was referred for evaluation of left parotid nodule. 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 Procedures Surgical History Date Name Laterality Status Provider Name and Address Organization Details Recorded Time procedure on wrist completed Ca Dawson [place] - [facility] 02/10/2024 14:09:06 Imaging Results Imaging Date [...] [facility] completed Not Available Not Available Not Available cholecalcif mahesh (vitamin D3) 50 mcg (2,000 unit) capsule TAKE 1 CAPSULE BY MOUTH EVERY DAY active Not Available Not Available No t Available Vitals Date Recorded Body height Body mass index (BMI) Body weight Provider Name and Address Organization Details Last Updated DateTime 02/10/2024 170.18 cm 34 kg/m2 28381.54 g Ca Dawson [place] [facility] 02/10/2024 14:32:31 Social History None recorded. Functional Status None recorded. Mental Status None recorded. Family History Nothing Reported. 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 Health Concerns Section Related Observation LastModified by Organization Detai ls LastModified Time None Recorded Concern Status LastModified by Organization Details LastModified Time None Recorded Advance Directives Directive None Recorded Payers Encounter Date Sequence Insurance Name Policy Number Policy Glass Covered Member ID Glass Member ID Guarantor Name 02/10/2024 1 [employer] - MEDICARE ADVANTAGE PLAN (MEDICARE REPLACEMENT HMO) [id number] Oswaldo Young [id number] Oswaldo Young Notes Date Note Type Note Provider Name and Address Organization Details Recorded Time 02/10/2024 text/html new patient referred for parotid massno symptoms of pain in side of necktobacco - in 1960s 10/24/23 [facility] -13 x 6 x 7 mm left intraparotid lymph node, 11 x 5 x 7 mm right intraparotid lymph node 12/11/22 ct cervical spine 4mm hypodensity left parotid retired from [employer] ARTURO CONN MD [address] [address], [place], [address], [facility] - [facility] 02/10/2024 14:56:17
--- OUTSIDE RECORDS SUMMARY | 2024-09-26 12:18 | XMS_ITS | Data Portability ---
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 given his failing memory I recommended he decrease his Prilosec which he takes for GERD every other day and see if he can tolerate that he was taking it b.i.d. that q.day now with no symptoms. 4. allergic rhinitis using [id number] medications. 5. Asthma not using any medications at this time has been on Advair in the past. 6. GERD as stated above. 7. Preventive healthcare discuss he is up-to-date with all vaccines gets a comprehensive eye exam every year his pain level is 0/10 [email or web address] Not available 03/18/2021 13:51:20 04/10/2021 04/10/2021 75-year-old [...] vitamin D, 25-hydroxy, total, serum 2020 021 [facility], [address], [place], [address], 08:13:21 lipid panel, serum 2020 021 [facility], [address], [place], [address], 08:13:19 CMP, serum or plasma 2020 021 [facility], [address], [place], [address], 08:13:18 PSA, total, serum or plasma 2020 021 [facility], [address], [place], [address], 08:13:21 TSH, serum or plasma 2020 021 [facility], [address], [place], [address], 08:13:20 urinalysis complete, reflex culture 2020 021 [facility], [address], [place], [address], 08:13:18 CBC w/ auto diff 2020 021 [facility], [address], [place], [address], 08:13:17 Referral None recorded. Procedures None recorded. Surgeries None recorded. Imaging None recorded. Medication Orders None recorded. Patient TargetsNo targets recorded. Patient Instructions Encounter Date Encounter Id Patient Instructions Last Modified By Organization Details Last Modified Time 03/18/2021 [id number] alcohol use disorders identification test* [email or web address] Not available 03/18/2021 13:53:15 fall risk screening* Not agnes ilable 03/18/2021 13:53:15 geriatric depres logan screen* [email or web address] Not available 03/18/2021 13:53:15 multi-dimensiona l health assessment questionnaire* JUAN Not available 03/18/2021 21:36:12 Advance Care Directives Patient WebLink Handout Not available 03/18/2021 13:53:15 advance directiv es: care instructions [email or web address] Not available 03/18/2021 13:53:15 Personalized Hea lth [...] ? Pain Management Plan: ? ? ? [email or web address] Not available 03/18/2021 13:13:00 10/26/2021 [id number] learning about b yuki cell skin cancer Not available 10/26/2021 16:23:55 skin lesions: ca re instructions Not available 10/26/2021 16:23:55 Reason for Referral None Reported. Results Created Date Observation Date Name Description Value Unit Range Abnormal Flag Note LastModifiedBy Organization Detail LastModifiedTime 03/24/20 21 03/25/2021 CBC WITH DIFFE RENTI AL/PL ATELE T WBC 10.1 x10e3 /uL 3.4-10 .8 Not Available [facility] ([facility]) [address] [facility] [facility], [place], [address], 03/28/2021 08:13:16 03/24/20 21 03/25/2021 CBC WITH DIFFE RENTI AL/PL ATELE T RBC 4.80 x10e6 /uL 4.14-5 .80 Not Available [facility] ([facility]) [address] [facility], [place], [address], 03/28/2021 08:13:16 03/24/2003/25/2021 CBC WITH DIFFE RENTI AL/PL ATELE T hemoglobin 15.7 g/dL 13.0-1 7.7 Not Available [facility] ([facility]) [address] [facility], [place], [address], 03/28/2021 08:13:16 03/24/2003/25/2021 CBC WITH DIFFE RENTI AL/PL ATELE T hematocrit 44.9 % 37.5-5 1.0 Not Available [facility] ([facility]) [address] [facility], [place], [address], 03/28/2021 08:13:16 03/24/2003/25/2021 CBC WITH DIFFE RENTI AL/PL ATELE T MCV 94 fL 79-97 Not Available [facility] ([facility]) [address] [facility], [place], [address], 03/28/2021 08:13:16 03/24/20 21 03/25/2021 CBC WITH DIFFE RENTI AL/PL ATELE T MCH 32.7 pg 26.6-3 3.0 Not Available [facility] ([facility]) [address] [facility], [place], [address], 03/28/2021 08:13:16 03/24/2003/25/2021 CBC WITH DIFFE RENTI AL/PL ATELE T MCHC 35.0 g/dL 31.5-3 5.7 Not Available [facility] ([facility]) [address] [facility], [place], [address], 03/28/2021 08:13:16 03/24/2003/25/2021 CBC WITH DIFFE RENTI AL/PL ATELE T RDW 12.1 % 11.6-1 5.4 Not Available [facility] ([facility]) [address] [facility], [place], [address], 03/28/2021 08:13:16 03/24/2003/25/2021 CBC WITH DIFFE RENTI AL/PL ATELE T platelets 303 x10e3 /uL 150-45 0 Not Available [facility] ([facility]) [address] [facility], [place], [address], 03/28/2021 08:13:16 03/24/2003/25/2021 CBC WITH DIFFE RENTI AL/PL ATELE T neutrophils 68 % not estab. Not Available [facility] ([facility]) [address] [facility], [place], [address], 03/28/2021 08:13:16 03/24/2003/25/2021 CBC WITH DIFFE RENTI AL/PL ATELE T lymphs 23 % not estab. Not Available [facility] ([facility]) [address] [facility], [place], [address], 03/28/2021 08:13:16 03/24/20 21 03/25/2021 CBC WITH DIFFE RENTI AL/PL ATELE T monocytes 7 % not estab. Not Available [facility] ([facility]) [address] [facility], [place], [address], 03/28/2021 08:13:16 03/24/20 21 03/25/2021 CBC WITH DIFFE RENTI AL/PL ATELE T eos 2 % not estab. Not Available [facility] ([facility]) [address] [facility], [place], [address], 03/28/2021 08:13:16 03/24/2003/25/2021 CBC WITH DIFFE RENTI AL/PL ATELE T basos 0 % not estab. Not Available [facility] ([facility]) [address] [place], [address], 03/28/2021 08:13:16 03/24/2003/25/2021 CBC WITH DIFFE RENTI AL/PL ATELE T immature cells ART FRAMING MANAGER Not Available [facility] ([facility]) [address] [place], [address], 03/28/2021 08:13:16 03/24/2003/25/2021 CBC WITH DIFFE RENTI AL/PL ATELE T neutrophils (absolute) 6.8 x10e3 /uL 1.4-7. 0 Not Available [facility] ([facility]) [address] [place], [address], 03/28/2021 08:13:16 03/24/2003/25/2021 CBC WITH DIFFE RENTI AL/PL ATELE T lymphs (absolute) 2.3 x10e3 /uL 0.7-3. 1 Not Available [facility] ([facility]) [address] [place], [address], 03/28/2021 08:13:16 03/24/2003/25/2021 CBC WITH DIFFE RENTI AL/PL ATELE T monocytes(ab solute) 0.7 x10e3 /uL 0.1-0. 9 Not Available [facility] ([facility]) [address] [place], [address], 03/28/2021 08:13:16 03/24/20 21 03/25/2021 CBC WITH DIFFE RENTI AL/PL ATELE T eos (absolute) 0.2 x10e3 /uL 0.0-0. 4 Not Available [facility] ([facility]) [address] [facility], [place], [address], 03/28/2021 08:13:16 03/24/20 21 03/25/2021 CBC WITH DIFFE RENTI AL/PL ATELE T baso (absolute) 0.0 x10e3 /uL 0.0-0. 2 Not Available [facility] ([facility]) [address] [facility], [place], [address], 03/28/2021 08:13:16 03/24/20 21 03/25/2021 CBC WITH DIFFE RENTI AL/PL ATELE T immature granulocytes 0 % not estab. Not Available [facility] ([facility]) [address] [facility], [place], [address], 03/28/2021 08:13:16 03/24/20 21 03/25/2021 CBC WITH DIFFE RENTI AL/PL ATELE T immature grans (abs) 0.0 x10e3 /uL 0.0-0. 1 Not Available [facility] ([facility]) [address] [facility] [facility], [place], [address], 03/28/2021 08:13:16 03/24/20 21 03/25/2021 CBC WITH DIFFE RENTI AL/PL ATELE T NRBC ART FRAMING MANAGER Not Available [facility] ([facility]) [address] [facility], [place], [address], 03/28/2021 08:13:16 03/24/20 21 03/25/2021 CBC WITH DIFFE RENTI AL/PL ATELE T hematology comments: ART FRAMING MANAGER Not Available [facility] ([facility]) [address] [facility], [place], [address], 03/28/2021 08:13:16 03/24/20 21 03/25/2021 COMP. METAB OLIC PANEL (14) glucose 101 mg/dL 65-99 above high normal Not Available [facility] ([facility]) [address] [facility], [place], [address], 03/28/2021 08:13:17 03/24/20 21 03/25/2021 COMP. METAB OLIC PANEL (14) BUN 17 mg/dL 8-27 Not Available [facility] ([facility]) [address] [facility], [place], [address], 03/28/2021 08:13:17 03/24/20 21 03/25/2021 COMP. METAB OLIC PANEL (14) creatinine 1.06 mg/dL 0.76-1 .27 Not Available [facility] ([facility]) [address] [facility], [place], [address], 03/28/2021 08:13:17 03/24/20 21 03/25/2021 COMP. METAB OLIC PANEL (14) eGFR if nonafricn AM 69 mL/mi n/1.7 3 >59 Not Available [facility] ([facility]) [address] [facility], [place], [address], 03/28/2021 08:13:17 03/24/20 21 03/25/2021 COMP. METAB [...] SN Task force . Not Available [facility] ([facility]) [address], [place], [address], 03/28/2021 08:13:17 03/24/20 21 03/25/2021 COMP. METAB OLIC PANEL (14) BUN/creatini ne ratio 16 10-24 Not Available [facility] ([facility]) [address] [facility] [place], [address], 03/28/2021 08:13:17 03/24/20 21 03/25/2021 COMP. METAB OLIC PANEL (14) sodium 143 mmol/ L 134-14 4 Not Available [facility] ([facility]) [address] [facility] [facility] [place], [address], 03/28/2021 08:13:17 03/24/20 21 03/25/2021 COMP. METAB OLIC PANEL (14) potassium 4.7 mmol/ L 3.5-5. 2 Not Available [facility] ([facility]) [address] [facility] [place], [address], 03/28/2021 08:13:17 03/24/20 21 03/25/2021 COMP. METAB OLIC PANEL (14) chloride 100 mmol/ L 96-106 Not Available [facility] ([facility]) [address] [facility] [place], [address], 03/28/2021 08:13:17 03/24/20 21 03/25/2021 COMP. METAB OLIC PANEL (14) carbon dioxide, total 24 mmol/ L 20-29 Not Available [facility] ([facility]) [address] [facility] [facility] [place], [address], 03/28/2021 08:13:17 03/24/20 21 03/25/2021 COMP. METAB OLIC PANEL (14) calcium 9.5 mg/dL 8.6-10 .2 Not Available [facility] ([facility]) [address] [facility] [place], [address], 03/28/2021 08:13:17 03/24/20 21 03/25/2021 COMP. METAB OLIC PANEL (14) protein, total 7.1 g/dL 6.0-8. 5 Not Available [facility] ([facility]) [address] [place], [address], 03/28/2021 08:13:17 03/24/20 21 03/25/2021 COMP. METAB OLIC PANEL (14) albumin 4.7 g/dL 3.7-4. 7 Not Available [facility] ([facility]) [address] [place], [address], 03/28/2021 08:13:17 03/24/20 21 03/25/2021 COMP. METAB OLIC PANEL (14) globulin, total 2.4 g/dL 1.5-4. 5 Not Available [facility] ([facility]) [address] [place], [address], 03/28/2021 08:13:17 03/24/20 21 03/25/2021 COMP. METAB OLIC PANEL (14) A/G ratio 2.0 1.2-2. 2 Not Available [facility] ([facility]) [address] [place], [address], 03/28/2021 08:13:17 03/24/20 21 03/25/2021 COMP. METAB OLIC PANEL (14) bilirubin, total 0.4 mg/dL 0.0-1. 2 Not Available [facility] ([facility]) [address] [place], [address], 03/28/2021 08:13:17 03/24/20 21 03/25/2021 COMP. METAB [...] 121 44 - 121 Not Available [facility] ([facility]) [address] [place], [address], 03/28/2021 08:13:17 03/24/20 21 03/25/2021 COMP. METAB OLIC PANEL (14) AST (SGOT) 26 IU/L 0-40 Not Available [facility] ([facility]) [address] [place], [address], 03/28/2021 08:13:17 03/24/20 21 03/25/2021 COMP. METAB OLIC PANEL (14) ALT (SGPT) 34 IU/L 0-44 Not Available [facility] ([facility]) [address] [place], [address], 03/28/2021 08:13:17 03/24/20 21 03/25/2021 UA WITH CULTU RE REFLE X specific gravity 1.019 1.005- 1.030 Not Available [facility] ([facility]) [address] [place], [address], 03/28/2021 08:13:18 03/24/20 21 03/25/2021 UA WITH CULTU RE REFLE X pH 6.0 5.0-7. 5 Not Available [facility] ([facility]) [address] [place], [address], 03/28/2021 08:13:18 03/24/20 21 03/25/2021 UA WITH CULTU RE REFLE X urine-color Yellow yellow Not Available [facility] ([facility]) [address] [place], [address], 03/28/2021 08:13:18 03/24/20 21 03/25/2021 UA WITH CULTU RE REFLE X appearance Clear clear Not Available [facility] ([facility]) [address] [facility] [facility], [place], [address], 03/28/2021 08:13:18 03/24/20 21 03/25/2021 UA WITH CULTU RE REFLE X WBC esterase Negati ve negati ve Not Available [facility] ([facility]) [address] [facility] [facility], [place], [address], 03/28/2021 08:13:18 03/24/20 21 03/25/2021 UA WITH CULTU RE REFLE X protein Negati ve negati ve/tra ce Not Available [facility] ([facility]) [address] [facility], [place], [address], 03/28/2021 08:13:18 03/24/20 21 03/25/2021 UA WITH CULTU RE REFLE X glucose Negati ve negati ve Not Available [facility] ([facility]) [address] [facility] [facility], [place], [address], 03/28/2021 08:13:18 03/24/20 21 03/25/2021 UA WITH CULTU RE REFLE X ketones Negati ve negati ve Not Available [facility] ([facility]) [address] [place], [address], 03/28/2021 08:13:18 03/24/20 21 03/25/2021 UA WITH CULTU RE REFLE X occult blood Trace negati ve abnormal Not Available [facility] ([facility]) [address] [place], [address], 03/28/2021 08:13:18 03/24/20 21 03/25/2021 UA WITH CULTU RE REFLE X bilirubin Negati ve negati ve Not Available [facility] ([facility]) [address] [facility] [facility], [place], [address], 03/28/2021 08:13:18 03/24/20 21 03/25/2021 UA WITH CULTU RE REFLE X urobilinogen ,semi-qn 0.2 mg/dL 0.2-1. 0 Not Available [facility] ([facility]) [address] [facility] [facility], [place], [address], 03/28/2021 08:13:18 03/24/20 21 03/25/2021 UA WITH CULTU RE REFLE X nitrite, urine Negati ve negati ve Not Available [facility] ([facility]) [address] [facility] [facility], [place], [address], 03/28/2021 08:13:18 03/24/20 21 03/25/2021 UA WITH CULTU RE REFLE X microscopic examination See below: Micro scopi c was indic ated and was perfo rmed. Not Available [facility] ([facility]) [address] [facility] [facility], [place], [address], 03/28/2021 08:13:18 03/24/20 21 03/25/2021 UA WITH CULTU RE REFLE X WBC None seen /hpf 0 - 5 Not Available [facility] ([facility]) [address] [facility] [facility], [place], [address], 03/28/2021 08:13:18 03/24/20 21 03/25/2021 UA WITH CULTU RE REFLE X RBC 0-2 /hpf 0 - 2 Not Available [facility] ([facility]) [address] [facility] [facility] [facility], [place], [address], 03/28/2021 08:13:18 03/24/20 21 03/25/2021 UA WITH CULTU RE REFLE X epithelial cells (non renal) None seen /hpf 0 - 10 Not Available [facility] ([facility]) [address] [facility] [facility] [facility], [place], [address], 03/28/2021 08:13:18 03/24/20 21 03/25/2021 UA WITH CULTU RE REFLE X epithelial cells (renal) ART FRAMING MANAGER Not Available [facility] ([facility]) [address], [place], [address], 03/28/2021 08:13:18 03/24/20 21 03/25/2021 UA WITH CULTU RE REFLE X casts None seen /lpf none seen Not Available [facility] ([facility]) [address], [place], [address], 03/28/2021 08:13:18 03/24/20 21 03/25/2021 UA WITH CULTU RE REFLE X cast type ART FRAMING MANAGER Not Available [facility] ([facility]) [address], [place], [address], 03/28/2021 08:13:18 03/24/20 21 03/25/2021 UA WITH CULTU RE REFLE X crystals ART FRAMING MANAGER Not Available [facility] ([facility]) [address], [place], [address], 03/28/2021 08:13:18 03/24/20 21 03/25/2021 UA WITH CULTU RE REFLE X crystal type ART FRAMING MANAGER Not Available [facility] ([facility]) [address], [place], [address], 03/28/2021 08:13:18 03/24/20 21 03/25/2021 UA WITH CULTU RE REFLE X mucus threads ART FRAMING MANAGER Not Available [facility] ([facility]) [address], [place], [address], 03/28/2021 08:13:18 03/24/20 21 03/25/2021 UA WITH CULTU RE REFLE X bacteria None seen none seen/f ew Not Available [facility] ([facility]) [address], [place], [address], 03/28/2021 08:13:18 03/24/20 21 03/25/2021 UA WITH CULTU RE REFLE X yeast ART FRAMING MANAGER Not Available [facility] ([facility]) [address] [place], [address], 03/28/2021 08:13:18 03/24/20 21 03/25/2021 UA WITH CULTU RE REFLE X trichomonas ART FRAMING MANAGER Not Available [facility] ([facility]) [address] [place], [address], 03/28/2021 08:13:18 03/24/20 21 03/25/2021 UA WITH CULTU RE REFLE X comment ART FRAMING MANAGER Not Available [facility] ([facility]) [address] [place], [address], 03/28/2021 08:13:18 03/24/20 21 03/25/2021 UA WITH CULTU RE REFLE X urinalysis reflex Commen t This speci men will not refle x to a Urine Cultu re. Not Available [facility] ([facility]) [address] [place], [address], 03/28/2021 08:13:18 03/24/20 21 03/25/2021 LIPID PANEL cholesterol, total 235 mg/dL 100-19 9 above high normal Not Available [facility] ([facility]) [address] [place], [address], 03/28/2021 08:13:19 03/24/20 21 03/25/2021 LIPID PANEL triglyceride s 157 mg/dL 0-149 above high normal Not Available [facility] ([facility]) [address] [place], [address], 03/28/2021 08:13:19 03/24/20 21 03/25/2021 LIPID PANEL HDL cholesterol 46 mg/dL >39 Not Available [facility] ([facility]) [address] [place], [address], 03/28/2021 08:13:19 03/24/20 21 03/25/2021 LIPID PANEL VLDL cholesterol concha 29 mg/dL 5-40 Not Available [facility] ([facility]) [address] [facility], [place], [address], 03/28/2021 08:13:19 03/24/20 21 03/25/2021 LIPID PANEL LDL chol calc ([facility]) 160 mg/dL 0-99 above high normal Not Available [facility] ([facility]) [address] [facility], [place], [address], 03/28/2021 08:13:19 03/24/20 21 03/25/2021 LIPID PANEL comment: ART FRAMING MANAGER Not Available [facility] ([facility]) [address] [facility] [facility], [place], [address], 03/28/2021 08:13:19 03/24/20 21 03/27/2021 THYRO ID STIMU LATIN G HORMO NE TSH-icma 1.6 uu/mL Refer ence Range : Non-P regna nt Adult 0.450 -4.50 0 Not Available [facility] [address] [facility], [place], [address], 03/28/2021 08:13:20 03/24/20 21 03/25/2021 PROST ATE-S [...] t be inter prete d as absol pechanga evide nce of the prese nce or absen ce of cesario shelby se. Not Available [facility] ([facility]) [address] [facility] [facility], [place], [address], 03/28/2021 08:13:20 03/24/20 21 03/25/2021 VITAM IN [...] um and D. Basilia jacobs [place]: [facility] . 2. Graham pineda [place], Raffaele rasmussen [place], Nicky off-F sumit i FLORES, et al. Evalu ation , treat ment, and preve ntion of vitam in D defic iency : an Endoc rine Socie ty clini concha pract ice guide line. JCEM. 2010; 96(7) :1911 -30. Not Available [facility] ([facility]) [address] [facility] [facility], [place], [address], 03/28/2021 08:13:21 11/24/19 22 12/15/2021 SURGI CONCHA PATHO LOGY REPOR T results . ACCES LOGAN: 804-P S-22- [id number] 16 RESPO NSIBL E PATHO LOGIS T: [...] 11/26 10:44 EDT PKB Perfo rmed at: [facility] [address] [place] [address] Phone : Gross Descr iptio n A. [...] by [place]. [address] x 3 / / 11/25 17:33 EDT Clini concha Histo ry NA Not Available [facility] (Lab) [address], [place], [address], 12/15/2021 09:40:20 11/26/19 22 11/26/2021 SURGI CONCHA PATHO LOGY REPOR T results . ACCES LOGAN: 804-P S-22- [id number] 16 RESPO NSIBL E PATHO LOGIS T: [...] 11/26 10:44 EDT PKB Perfo rmed at: [facility] [address] [place] [address] Phone : Gross Descr iptio n A. [...] ed with the patie nt's name alejandrina marin n , it consi sts of a [...] by [place]. 15442 x 3 / / 11/25 17:33 EDT Clini concha Histo ry NA Not Available [facility] (Lab) [address], [place], [address], 11/26/2021 10:44:08 05/20/2005/20/2021 MRI, prost ate, w/wo contr ast No observ ation record ed. [facility] ([facility]) [address] [place] [address], [id number], 05/22/2021 08:38:37 Result Notes None recorded. Problems Name Problem SNOMED Code Status Onset Date Resolution Date Notes Provider Name and Address Organization Details Recorded Time Allergic conjunctivitis 711299310 Active Nicolasa napoles [facility] [place] 8 13:23:11 Sleep apnea 51368522 Active 2016 Nicolasa napoles [facility] [place] 8 13:22:58 Vitamin D deficiency 92595143 Active 2016 Nicolasa napoles [facility]14 [place] 8 13:23:14 Osteoarthritis 443903929 Active 2016 Nicolasa Perdue null, [place] - [facility] [place] 8 13:23:18 Memory impairment 201020361 Active 2016 Nicolasa Perdue null, [place] - [facility] [place] 7 15:52:18 Generalized anxiety disorder 70312457 Active 2017 Nicolasa Perdue null, [place] - [facility] [place] 8 13:45:01 Obesity 255109871 Active 2017 Nicolasa Perdue null, [place] - [facility] [place] 8 08:42:14 Basal cell carcinoma of skin 105755947 Active 2019 BAKARI RAHMAN MD [address], [phone], [facility] - [facility] [place] 0 13:54:56 Skin lesion 00502824 Active 2021 BAKARI RAHMAN MD [address],[facility], [place], [address], [facility] - [facility]14 [place] 2 16:23:50 Persistent insomnia [id number] Active Nicolasa Perdue null, CT - [facility] [place] 8 13:23:21 Testicular hypofunction [id number] Active Nicolasa Perdue null, CT - [facility] [place] 8 13:23:19 Gastroesophage al reflux disease [id number] Active Nicolasa Perdue null, CT - [address] 8 13:23:08 Hip pain [id number] Active Nicolasa Perdue null, CT - [facility] [place] 8 13:23:25 Allergic rhinitis 28000586 Active Nicolasa Perdue null, CT - [facility] [place] 8 13:23:16 Asthma [id number] Active Nicolasa Perdue null, CT - [facility] [facility] [place] 8 13:23:05 Pure hypercholester olemia [id number] Active Nicolasa Perdue null, [place] - [facility] [place] 8 13:23:07 Problem Notes None recorded. Procedures Surgical History Date Name Laterality Status Provider Name and Address Organization Details Recorded Time 11/24/19 22 Blank Procedure Template completed BAKARI RAHMAN MD [address], [place], [address], [address] 11/23/2021 13:54:10 03/18/20 21 Medicare Wellness CPT Code, Subsequent completed Tracy Reagan, [address] 03/18/2021 13:13:01 03/17/20 20 Medicare Wellness CPT Code, Subsequent completed Tracy Reagan, [address] 03/17/2020 10:36:00 11/08/19 20 Telehealth Communication completed Liseth Le, [address] 11/08/2019 08:27:00 04/26/20 19 Removal of Foreign Body completed Raleigh Downey MD [address], [place], [address], [address] 04/26/2019 12:57:03 03/12/20 19 Medicare Wellness CPT Code, Subsequent completed Tracyjerry Reagan, [address] 03/12/2019 10:10:40 03/07/20 18 Medicare Wellness CPT Code, Subsequent completed Sheri Collins, [address] 03/07/2018 13:19:38 02/10/20 17 Medicare Wellness CPT Code, Subsequent completed Scarlett Hanna, [address] 02/09/2017 13:16:21 07/20/19 17 Removal of foreign body - Eye completed Nicolasa Perdue [address] 07/20/2016 11:49:56 07/18/19 12 Colonoscopy completed Sheri Collins [address] 11/22/2016 09:39:16 hernia completed BAKARI RAHMAN MD [address], [place], [address], [address] 09/04/2019 13:51:45 Imaging Results Imaging Date Name Status LastModified by [facility] Details LastModified Time 05/20/2021 MRI, prostate, w/wo contrast completed [facility] ([address], [address], 05/22/2021 08:38:37 Procedure Notes None recorded. Medical Equipment None Reported. Allergies Allergen ID Allergen Name Allergen Category Reaction Reaction Severity Criticality Documentation Date Start Date Code Code System Note Provider Name and Address Organization Details Recorded Time 625133 Product containin g 3-hydroxy -3-methyl glutaryl- coenzyme A reductase inhibitor (product) medicatio n other moderate Not available 01/12/2016 46032 009 SNOMED Palpi tatio ns Quique Stephenson [facility], [place] - [facility] [place] 6 14:54:04 Medications Name Sig Start Date [...] Not Available Not Available fluzone high-dose pf 7366-6167 .5 ml mehrdad active Not Available Not Available Not Available fluzone high-dose pf 5139-7766 .5 ml mehrdad active Not Available Not [...] Available polymyxin b sulfate/t rimethopr im sulfate 14885-6.1 unit/ml-% soln 02/09 completed Not Available Not [...] Not Available Not Available Not Available fluad 4632-3646 .5 ml mehrdad 06/11 completed Not Available Not Available Not Available sulfameth oxazole/t rimethopr im ds 800-160 mg tabs active Not Available Not Available Not Available hydrocodo ne/acetam inophen 5-325 mgtabs active Not Available Not Available Not Available fluzone high-dose pf 7356-7589 .5 ml mehrdad 06/03 completed Not Available [...] Not Available Not Available Not Available Flulaval 5026-1219 45 mcg (15 mcg x 3)/0.5 mL intramusc ular suspensio n active Not Available Not Available Not Available Anoro Ellipta 62.5 mcg-25 mcg/actua tion powder for inhalatio n Inhale 1 puff every day by inhalati on route for 90 days. 2015 active Not Available Not Available Not Avai lable Fluvirin 7718-5535 45 mcg (15 mcg x 3)/0.5 mL intramusc ular suspensio n INJECT 0.5 ML INTRAMUS CULARLY DIRECTED . active Not Available Not Available No t Available Fluzone High-Dose 2014- (PF) 180 mcg/0.5 mL intramusc ular syringe active Not Available Not Available Not Available Fluzone High-Dose 0483-1538 (PF) 180 mcg/0.5 mL intramusc ular syringe ADM 0.5ML IM UTD active Not Available Not Available No t Available Fluzone High-Dose 1689-7348 (PF) 180 mcg/0.5 mL intramusc ular syringe [...] Available Not Available Not Available Fluad Quad 7471-2689 (65yr up)(PF) 60 mcg (15 mcg x [...] Updated DateTime 1 163.83 cm 33.9 kg/m2 59169.2 7 g 45 /min 18 /min 98 [degF] 0 174 mm[Hg] 84 mm[Hg] MAURO Byrd [facility]14 [place] 13:22:04 Date Recorded Body height Body mass index (BMI) Body weight Heart rate Respiratory rate Body temperature Systolic blood pressure Diastolic blood pressure Provider Name and Address Organization Details Last Updated DateTime 163.83 cm 33.8 kg/m2 93971.4 7 g 87 /min 18 /min 97.9 [degF] 184 mm[Hg] 96 mm[Hg] MAURO Byrd [facility]14 [place] 14:04:53 Date Recorded Body height Provider Name an d Address Organization Details Last Updated DateTime 10/26/2021 163.83 cm Tima Decker [address] 10/26/2021 15:43:05 Date Recorded Body height Provider Name an d Address Organization Details Last Updated DateTime 11/23/2021 163.83 cm Tima Decker [address] 11/23/2021 13:16:30 Date Recorded Body height Provider Name an d Address Organization Details Last Updated DateTime 03/26/2022 163.83 cm Georgina Fish LPN [address] 03/26/2022 15:27:17 Social History Question Answer Notes LastModified by Organizat ion Details LastModified Time Tobacco Smoking Status Former Smoker Quit 1962 Aury Sandoval CMA [address] 09/04/2019 13:22:36 Do You Have An Advance Directive? No Information not available 02/09/2017 What Is Your Level Of Alcohol Consumption? Occasional [email or web address] Information not available 02/16/2013 How Many Times Per Week Do You Consume Alcohol? 1-2 Times Per Week Information not available 03/18/2021 Are You Blind Or Do You Have Difficulty Seeing? No Information not available 02/09/2017 What Is Your Level Of Caffeine Consumption? None Information not available 03/18/2021 Are You Deaf Or Do You Have Serious Difficulty Hearing? No Information not available 02/09/2017 What Type Of Diet Are You Following? 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 1-5yearssinkevin bond [email or web address] Information not available 03/18/2021 Live Alone Or With Others? With Others [email or web address] Information not available 04/23/2013 Do You Feel Safe At Home? Yes Information not available 02/09/2017 Marital Status eva Informati on not available 02/16/2013 Do You Have A Medical Power Of Roof Designer? No Information not available 03/18/2021 What Was The Date Of Your Most Recent Tobacco Screening? 11/23/2021 [email or web address] Information not available 11/23/2021 How Many Children Do You Have? 2 Information not available 12/25/2013 What Is Your Current Pack Years? 10packyears [email or web address] Information not available 03/18/2021 Seat Belts Used Routinely Yes Information not available 02/09/2017 Smoke Alarm In Home Yes Information not available 02/09/2017 At What Age Did You Start Smoking Tobacco? 16 Information not available 12/25/2013 How Much Tobacco Do You Smoke? 0.5 PPD [email or web address] Information not available 09/04/2019 General Stress Level Low [email or web address] Information not available 02/16/2013 Do You Use Any Illicit Or Recreational Drugs? No [email or web address] Information not available 03/18/2021 Do You Use Sunscreen Routinely? No Information not available 02/09/2017 Has Tobacco Cessation Counseling Been Provided? No [email or web address] Information not available 03/18/2021 How Many Years Have You Smoked Tobacco? 2 [email or web address] Information not available 09/04/2019 Do You Or Have You Ever Used Any Other Forms Of Tobacco Or Nicotine? No Information not available 03/18/2021 Sex: Unknown Functional Status Question Answer Note LastModified by Organizat ion Details LastModified Time Do you have difficulty walking or climbing stairs? No Information not available 02/09/2017 Do you have difficulty doing errands alone? No Information not available 02/09/2017 Do you have difficulty dressing or bathing? No Information not available 02/09/2017 What is your exercise level? Occasional [email or web address] Information not available 02/16/2013 Mental Status Question Answer Note LastModified by Organization D etails LastModified Time Do you have difficulty concentrating, remembering or making decisions? No Information no t available 02/09/2017 Family History Relationship Description Onset Age of this Age Resolved Age Notes LastModified by Organization Details LastModified Time Brother Alive [email or web address] Not available 07/22/2016 16:28:24 Father Chronic cerebrovascu lar accident 71 [email or web address] Not available 11/2016 16:28:24 Mother Old-age 87 [email or web address] Not available 07/22/2016 16:28:24 Notes:2 children alive and w ell Medical History Condition Response Hepatitis Y Hyperlipidemia Y Asthma Y GERD/Reflux Y Immunizations Vaccine Type Date Status Note Provider Nam e and Address Organization Details Recorded Time Influenza, split virus, trivalent, preservative 4 completed Liseth eL RMA null, [facility] [place] 06/11/2019 13:01:11 Influenza, high-dose, trivalent, PF 5 completed Not Available [facility] 02:11:28 Pneumococcal conjugate PCV 13 5 completed Tracy Reagan RMA null, [place] - [facility] [place] 03/18/2021 13:14:30 zoster live 0 completed Tracy Reagan RMA null, [place] - [facility] [place] 03/18/2021 13:14:31 pneumococcal, unspecified formulation 0 completed Tracy Reagan RMA null, [place] - [facility] [place] 03/18/2021 13:14:30 Influenza, split virus, trivalent, preservative 3 completed Tracy Reagan RMA null, [place] - [facility] [place] 03/18/2021 13:14:31 tetanus toxoid, unspecified formulation 0 completed Tracy Reagan RMA null, [place] - [facility] [place] 03/18/2021 13:14:30 Influenza, split virus, trivalent, preservative 4 completed Tracy Reagan RMA null, [facility] [place] 03/18/2021 13:14:30 pneumococcal, unspecified formulation 0 completed Scarlett Jacques, GLAZING SUPERINTENDENT null, [address] 02/09/2017 13:19:19 tetanus toxoid, unspecified formulation 0 completed Scarlett Jacques, GLAZING SUPERINTENDENT null, [facility] [place] 02/09/2017 13:19:19 Influenza, split virus, trivalent, preservative 3 completed Scarlett Jacques, GLAZING SUPERINTENDENT null, [address] 02/09/2017 13:19:19 Influenza, split virus, quadrivalent, preservative 3 completed Not Available [facility] 08/18/2019 02:11:10 Influenza, split virus, trivalent, preservative 4 completed Not Available [facility] 08/18/2019 02:11:10 Influenza, split virus, trivalent, preservative 2 completed Not Available [facility] 08/18/2019 02:11:10 zoster live 0 completed Scarlett Hanna GLAZING SUPERINTENDENT null, [address] 02/09/2017 13:19:19 Past Encounters Encounter ID Performer Location Encounter Start Date Encounter Closed Date Diagnosis/Indication Diagnosis SNOMED-CT Code Diagnosis ICD10 Code Diagnosis Note [id number] [facility] [address] [place] [address] 01/29/2013 15:24:44 01/30/2013 09:26:15 [id number] [facility] [address] [place] [address] 04/23/2013 15:19:32 04/23/2013 16:51:22 Fatigue 12270926 Cough 95784746 [id number] [facility] [address] [place] [address] 06/04/2013 10:16:56 06/04/2013 12:45:31 Lipoma of skin 801617036 [id number] [facility] [address] [place] [address] 06/18/2013 15:46:39 06/19/2013 09:56:43 Lipoma of skin 040029769 [id number] William Cueva Cecilio [facility] [address] [place] [address] 11/19/2013 15:54:48 11/19/2013 16:58:21 Asthma 949618008 Acute bronchitis 76238945 Cough 62670348 [id number] [facility] [address] [place] [address] 12/25/2013 13:05:51 12/26/2013 16:36:58 Pure hypercholesterolemia 176401687 Adult heal th examination 681796725 Hip pain 73048280 Sleep apnea 55510617 Allergic rhinitis 02255578 Gastroesop hageal reflux disease 282912205 Body mass index 30+ - obesity 857292102 Screening for malignant neoplasm of rectum 610172223 [id number] MAURO Seth [facility] [address] [place] [address] 04/04/2014 13:07:47 04/04/2014 14:33:36 Allergic rhinitis 49526610 Skin lesion 62385118 [id number] Jacki Mayen MD [facility] [address] [place] [address] 01/07/2015 13:02:06 01/07/2015 17:27:58 Adult health examination 806685866 Asthma 927188284 Sleep apnea 59411594 Memory impairment 362552391 Body mass index 30+ - obesity 123475847 Administra tion of pneumococcal vaccine 74281028 Screening for malignant neoplasm of rectum 608772285 [id number] [facility] [address] [place] [address] 01/28/2015 10:44:03 01/28/2015 11:23:40 Pure hypercholesterolemia 015226435 Medication monitoring 927440138 [id number] [facility] [address] [place] [address] 04/01/2015 10:00:35 04/01/2015 17:36:22 Pure hypercholesterolemia 973132303 Senile hyperkeratosis 515704505 [id number] Jacki Mayen MD [facility] [address] [place] [address] 07/07/2015 13:07:15 07/07/2015 14:00:36 Sleep apnea 68663001 G47.30 Obesity 950891365 E66.9 [id number] Jacki Mayen MD [facility] [address] [place] [address] 08/07/2015 13:29:36 08/07/2015 15:17:15 Upper respiratory infection 35244792 J06.9 Cough 04078818 R05 [id number] [facility] [address] [address] 09/18/2015 14:21:19 09/18/2015 16:17:56 Pain in thumb 347798689 M79.645 Hand pain 06305933 M79.6 [id number] Jacki Mayen MD [facility] [address] [address] 10/08/2015 08:56:56 10/08/2015 11:29:36 Asthma 924481624 J45.909 Allergic rhinitis 803137 04 J30.9 Cough 94820715 R05 Allergic conjunctivitis 457949947 H10.13 Acute bronchitis 7511158 2 J20.9 [id number] Jacki Mayen MD [facility] [address] [place] [address] 11/20/2015 14:08:59 11/20/2015 15:42:38 Allergic rhinitis 04234663 J30.9 Allergic conjunctivitis 080427611 H10.13 Asthma 294277002 J45.90 9 [id number] [facility] [address] [place] [address] 12/08/2015 09:00:19 12/08/2015 13:22:40 Tinea sherriuris 098480402 B35.6 [id number] Jacki aMyen MD [facility] [address] [place] [address] 01/12/2016 12:58:53 01/12/2016 16:35:25 Adult health examination 016742564 Z00.01 Z72.89 Z79.899 N42.9 Z12.5 E78.5 E55.9 Fatigue 93203179 R53.83 Poor short -term memory 431574963 R41.3 Acute félix l impairment 522065139 N28.9 Essential hypertension 71767401 I10 Screening for malignant neoplasm of rectum 084848225 Z12.12 Pain in thumb 419784271 M79.645 Hypercholesterolemia 136 58137 E78.0 Sleep apnea 27118104 G47 .30 [id number] Jacki Mayen MD [facility] [address] [place] [address] 02/11/2016 10:45:29 02/11/2016 13:36:44 Essential hypertension 93923709 I10 Hypogonadism 64536210 E2 9.1 [id number] [facility] [address] [place] [address] 03/04/2016 15:27:05 03/04/2016 16:45:58 Tinea todds 449665935 B35.6 Palpitations 96473373 R0 0.2 [id number] MD [facility] [address] [place] [address] 03/11/2016 10:00:58 03/11/2016 15:30:44 Palpitations 85885016 R00.2 [id number] [facility] [address] [place] [address] 04/14/2016 14:46:03 04/14/2016 16:43:04 Premature atrial contraction 050214510 I49.1 Ventricula r premature beats 68007672 I49.3 Transient cerebral ischemia 186217449 G45.9 [id number] Robert Hernandez MD [facility] [place] [facility] [address] [facility] [address] [place] [address] 05/24/2016 15:03:00 05/24/2016 16:02:33 [id number] Jacki Mayen MD [facility] [address] [place] [address] 06/29/2016 14:05:17 06/29/2016 16:19:26 Acute bronchitis 61234494 J20.9 Asthma 395562251 J45.90 9 Cough 83323790 R05 [id number] Jacki Mayen MD [facility] [address] [place] [address] 07/20/2016 11:13:42 07/20/2016 14:25:53 Foreign body in eye 1576741858 33011 H44.205 [id number] Jacki Mayen MD [facility] [address] [place] [address] 07/22/2016 15:23:30 07/22/2016 16:58:21 [facility] [id number] H00.13 [id number] Jacki Mayen MD [facility] [address] [place] [address] 02/09/2017 12:14:27 02/09/2017 15:00:48 Adult health examination 053400293 Z00.00 Screening for disorder 438606956 Z13.9 Sleep apnea 25218737 G47 .30 Adverse re action to drug 24701555 T88.7XXA On Zocor- feels bad Pain in right foot 19155 54050 97833 M79.671 Vitamin D deficiency 347 62291 E55.9 Osteoarthritis 256627756 M19.90 Poor short -term memory 327648033 R41.3 Impotence 936462240 N52. 9 Screening for malignant neoplasm of colon 433439102 Z12.11 [id number] Jacki Mayen MD [facility] [address] [place] [address] 06/03/2017 10:23:50 06/03/2017 13:16:31 Obesity 750765916 E66.9 Poor short -term memory 677807715 R41.3 [id number] Jacki Mayen MD [facility] [address] [place] [address] 07/06/2017 15:44:58 07/06/2017 16:36:07 Memory impairment 684611062 R41.3 Medication monitoring 39 7332103 Z51.81 Obesity 522629217 E66.9 Impotence 648470917 N52. 9 [id number] Jacki Mayen MD [facility] [address] [place] [address] 10/12/2017 09:57:08 10/12/2017 10:43:43 Essential hypertension 51019147 I10 Candidiasis of skin 4988 3006 B37.2 Generalize d anxiety disorder 28337706 F41.1 Allergic rhinitis 384171 04 J30.9 [id number] Jacki Mayen MD [facility] [address] [place] [address] 12/21/2017 15:14:38 12/21/2017 16:10:50 Difficulty maintaining weight loss 683997131 E66.9 Obesity 084688056 E66.9 [id number] Jacki Mayen MD [facility] [address] [place] [address] 03/07/2018 13:15:21 03/07/2018 15:22:34 Adult health examination 118837222 Z00.00 Screening for disorder 064407445 Z13.89 Obesity 181927932 E66.9 Pure hypercholesterolemia 447308443 E78.00 Gastroesop hageal reflux disease 074195890 K21.9 Vitamin D deficiency 347 73826 E55.9 Asthma 838364676 J45.90 9 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 Generalize d anxiety disorder 51174833 F41.1 Sleep apnea 65936739 G47 .30 Screening for malignant neoplasm of colon 954034770 Z12.11 Z12.12 [id number] Jacki Mayen MD [facility] [address] [place] [address] 05/16/2018 08:17:50 05/16/2018 11:06:26 Obesity 485980417 E66.9 Sleep apnea 30947329 G47 .30 [id number] Jacki Mayen MD [facility] [address] [place] [address] 06/16/2018 10:07:32 06/16/2018 11:19:36 Gout 95549932 M10.9 Memory impairment 507402 006 R41.3 [id number] Jacki Mayen MD [facility] [address] [place] [address] 08/14/2018 09:26:24 08/14/2018 12:32:33 Generalized anxiety disorder 61949320 F41.1 Memory impairment 743593 006 R41.3 Palpitations 18508209 R0 0.2 [id number] Jacki Mayen MD [facility] [address] [place] [address] 09/04/2018 11:02:21 09/04/2018 13:03:57 Allergic rhinitis 52258527 J30.9 Palpitations 63210347 R0 0.2 Memory impairment 103756 006 R41.3 [id number] [facility] [address] [place] [address] 10/13/2018 14:18:19 10/13/2018 16:54:25 Ventricular tachycardia 08489404 I47.2 Palpitations 14182132 R0 0.2 Lesion of skin of face 9940039969 06 L98.9 [id number] Jacki Mayen MD [facility] [address] [place] [address] 11/30/2018 09:28:23 11/30/2018 13:21:54 Nonsustained ventricular tachycardia 931010102 I47.2 Left ventr icular hypertrophy 92839707 I51.7 Memory impairment 463659 006 R41.3 Insomnia 816662767 G47.0 0 Allergic rhinitis 087027 04 J30.9 [id number] Jacki Mayen MD [facility] [address] [place] [address] 12/28/2018 13:20:03 12/28/2018 15:21:08 Candidiasis of skin 27660453 B37.2 Memory impairment 429533 006 R41.3 Wound of skin 116421387 T14.8XXA Degenerati ve joint disease of hand 90141872 M19.953 [id number] Jacki Mayen MD [facility] [address] [place] [address] 03/02/2019 14:32:33 03/02/2019 16:21:35 Impetigo 92288502 L01.00 [id number] Jacki Mayen MD [facility] [address] [place] [address] 03/12/2019 09:36:33 03/12/2019 13:19:23 Adult health examination 867748484 Z00.00 Screening for disorder 545790830 Z13.89 Depression screening 171 258046 Z13.31 Pure hypercholesterolemia 281000490 E78.00 Essential hypertension 70609445 I10 Fatigue 14956485 R53.83 Screening for malignant neoplasm of prostate 233846481 Z12.5 Memory impairment 144512 006 R41.3 Medication monitoring 39 9588669 Z51.81 Generalize d anxiety disorder 52073841 F41.1 Low back pain 936308490 M54.5 Pain in right thumb 1076 537371 262466 M79.644 Dementia 85129741 F03.90 Asthma 814550237 J45.90 9 Screening for malignant neoplasm of colon 559414294 Z12.11 Z12.12 [id number] Jacki Mayen MD [facility] [address] [place] [address] 04/16/2019 08:58:10 04/16/2019 10:23:22 Pain in thumb 881813311 M79.397 [id number] Raleigh Downey MD [facility] [address] [place] [address] 04/26/2019 12:09:46 04/26/2019 13:01:13 Retained foreign body in eye 80715302 H44.709 flushed clear [id number] Jacki Mayen MD [facility] [address] [place] [place] [address] 06/04/2019 13:05:17 06/04/2019 15:30:04 Ingrowing nail 963435261 L60.0 [id number] Jacki Mayen MD [facility] [address] [place] [address] 06/11/2019 12:46:50 06/11/2019 14:29:07 Hip pain 13603121 M25.559 Hand pain 16255317 M79.6 41 M10.9 Fatigue 62236447 R53.83 Nausea 636011119 R11.0 Abdominal pain 56500675 R10.9 Indigestion 092056524 K3 0 Dementia 02982092 F03.90 Anxiety 37487307 F41.9 Muscle weakness 49157205 M62.81 [id number] MD BOBY [facility] [address] [place] [address] 06/21/2019 10:37:40 06/21/2019 13:07:55 Fatigue 25216045 R53.83 Abdominal pain 77143711 R10.9 Muscle weakness 07298094 M62.81 [id number] MD [facility] [address] [place] [address] 06/29/2019 11:09:30 06/29/2019 14:23:48 Postoperative wound infection 27844051 T81.40XA right hand [id number] MD [facility] [address] [place] [address] 07/26/2019 12:50:00 07/26/2019 13:52:47 Pain in throat 724436383 R07.0 Pharyngitis 870314127 J0 2.9 Lesion of skin of face 5528121387 06 L98.9 [id number] BAKARI RAHMAN MD [facility] [address] [place] [address] 09/04/2019 12:42:04 09/04/2019 13:39:11 Basal cell carcinoma of skin 683813733 C44.91 [id number] Jacki Mayen MD [facility] [address] [place] [address] 09/11/2019 15:07:19 09/11/2019 16:27:39 Asthma 375146227 J45.909 Poor short -term memory 329978346 R41.3 [id number] Jacki Mayen MD [facility] [address] [place] [address] 11/08/2019 08:14:39 11/08/2019 09:38:58 Acute gastroenteritis 08157449 K52.9 Nausea and vomiting 1693 2000 R11.2 [id number] Jacki Mayen MD [facility] [address] [place] [address] 12/11/2019 14:05:02 12/11/2019 15:39:56 Abdominal pain 78922261 R10.9 Nausea 393318034 R11.0 Muscle weakness 90086283 M62.81 Fatigue 55415831 R53.83 Diarrhea 46184659 R19.7 Gastritis 1471370 K29.70 Dizziness 995467244 R42 [id number] BAKARI RAHMAN MD [facility] [address] [place] [address] 12/14/2019 14:08:04 12/14/2019 14:41:59 Basal cell carcinoma of skin 552057993 C44.91 [id number] Jacki Mayen MD [facility] [address] [place] [address] 01/15/2020 10:37:28 01/15/2020 12:40:42 Gastroesophageal reflux disease 646001688 K21.9 Gastric ulcer 377278220 K25.9 Abdominal pain 05742862 R10.9 [id number] Jacki Mayen MD [facility] [address] [place] [address] 03/10/2020 08:18:12 03/10/2020 13:09:14 Pain in both feet 8764017742 2000425 M79.671 M79.672 Testicular hypofunction 517273828 E29.1 Pure hypercholesterolemia 646737069 E78.00 Vitamin D deficiency 347 24392 E55.9 Fatigue 49076049 R53.83 Pain in left knee 096547 8258 42143 M25.562 [id number] Jacki Mayen MD [facility] [address] [facility] [place] [address] 03/17/2020 13:03:43 03/17/2020 14:59:03 Adult health examination 859056382 Z00.00 Screening for disorder 294394047 Z13.89 Depression screening 171 215611 Z13.31 Gastroesop hageal reflux disease 284736146 K21.9 Generalize d anxiety disorder 89938755 F41.1 Medication monitoring 39 6375168 Z51.81 Asthma 712471935 J45.90 9 Dementia 81797816 F03.90 [id number] Jacki Mayen MD [facility] [address] [facility] [place] [address] 03/27/2020 15:03:52 03/27/2020 15:37:08 Pain in left knee 0735513160 55336 M25.562 [id number] MD [facility] [address] [address] 04/17/2020 15:50:16 04/17/2020 16:45:04 Prostate specific antigen above reference range 543061686 R97.20 Prostate mass 393116878 R19.09 [id number] Jacki Mayen MD [facility] [address] [place] [address] 07/14/2020 14:09:45 07/14/2020 16:03:43 Onychomycosis 993213922 B35.1 [id number] Jacki Mayen MD [facility] [address] [place] [address] 08/04/2020 11:04:06 08/04/2020 12:41:31 Polyp of colon 76600058 K63.5 Pruritus ani 58675850 L2 9.0 [id number] Jacki Mayen MD [facility] [address] [place] [address] 08/11/2020 15:48:23 08/11/2020 17:03:27 Dark stools 34532535 R19.5 Tinea cruris 948986689 B 35.6 [id number] Jacki Mayen MD [facility] [address] [place] [address] 08/20/2020 13:30:52 08/20/2020 14:43:47 Onychomycosis 368238169 B35.1 Asthma 865174603 J45.90 9 Essential hypertension 29144026 I10 [id number] Jacki Mayen MD [facility] [address] [place] [address] 08/25/2020 13:30:52 08/25/2020 15:10:46 Peptic ulcer 51292610 K27.9 Indigestion 255239459 K3 0 Nausea 134558409 R11.0 [id number] Jacki Mayen MD [facility] [address] [place] [address] 09/23/2020 13:30:49 09/23/2020 15:53:09 Peptic ulcer 79432588 K27.9 Gastroesop hageal reflux disease without esophagitis 976937231 K21.9 [id number] Jacki Mayen MD [facility] [address] [place] [address] 12/24/2020 13:36:18 12/24/2020 16:07:51 Gastroesophageal reflux disease 688578230 K21.9 Tinea corporis 78159919 B35.4 [id number] Jacki Mayen MD [facility] [address] [facility] [place] [address] 03/18/2021 12:49:08 03/18/2021 14:19:00 Adult health examination 586526851 Z00.00 Screening for disorder 560647023 Z13.89 Depression screening 171 402006 Z13.31 Pure hypercholesterolemia 706795906 E78.00 Vitamin D deficiency 347 83822 E55.9 Testicular hypofunction 307095390 E29.1 Fatigue 75815099 R53.83 Gastroesop hageal reflux disease 479800371 K21.9 Memory impairment 299753 006 R41.3 Obesity 948205334 E66.9 Essential hypertension 37663160 I10 [id number] Jacki Mayen MD [facility] [address] [facility] [place] [address] 04/10/2021 13:50:11 04/10/2021 15:03:21 Constipation 30805476 K59.00 [id number] BAKARI RAHMAN MD [facility] [address] [facility] [address] [place] [address] 10/26/2021 15:25:17 10/26/2021 16:02:03 Basal cell carcinoma of skin 372499291 C44.91 Skin lesion 73594681 L98 .9 [id number] BAKARI RAHMAN MD [facility] [address] [facility] [address] [place] [address] 11/23/2021 13:11:11 11/23/2021 13:45:52 Basal cell carcinoma of skin 497010678 C44.91 Skin lesion 57114490 L98 .9 [id number] BAKARI RAHMAN MD [facility] [address] [facility] [address] [place] [address] 03/26/2022 15:17:14 03/26/2022 15:27:56 Basal cell carcinoma of skin 667298326 C44.91 Health Concerns Section Related Observation LastModified by Organization Detai ls LastModified Time None Recorded Concern Status LastModified by Organization Details LastModified Time None Recorded Advance Directives Directive N: Payers Encounter Date Sequence Insurance Name Policy Number Policy Glass Covered Member ID Glass Member ID Guarantor Name 03/18/2021 1 [employer] (MEDICARE REPLACEMENT HMO) Oswaldo Young [id number] Oswaldo Young 04/10/2021 1 [employer] (MEDICARE REPLACEMENT HMO) Oswaldo Young [id number] Oswaldo Young 10/26/2021 1 [employer] (MEDICARE REPLACEMENT HMO) Oswaldo Young [id number] Oswaldo Young 11/23/2021 1 [employer] (MEDICARE REPLACEMENT HMO) Oswaldo Young [id number] Oswaldo Young 03/26/2022 1 [employer] (MEDICARE REPLACEMENT HMO) Oswaldo Young [id number] Oswaldo Young Notes Date Note Type Note [...] failing memory and asthma Jacki Mayen MD [address] [place] [address],[address], [place], [address] [place] 03/18/2021 14:22:16 04/10/2021 text/html This patient is [...] to his colon Jacki Mayen MD [address] [facility] [facility] [facility] [address] [facility], [place], [address], [facility] [place] 04/10/2021 21:06:05 10/26/2021 text/html the patient repo [...] not becoming pathologic. BAKARI RAHMAN MD [address] [facility] [facility] [address] [address], [place], [address], [facility] [place] 10/26/2021 16:24:17 11/23/2021 text/html The patient came in today for removal of the basal cell carcinoma from his right cheek. He also came for biopsy of the lesion on the medial cheek and the right side of the nose. BAKARI RAHMAN MD [address] [facility], [place], [address], [facility] [place] 11/23/2021 13:58:19 03/26/2022 text/html The patient was concerned about some mild erythema on his right cheek surgical site. No fevers or chills. No drainage. BAKARI RAHMAN MD [address], [place], [address], [facility] [place] 03/26/2022 15:32:20
--- OUTSIDE RECORDS SUMMARY | 2024-09-26 12:18 | XMS_ITS | Data Portability ---
Author Organization [place] - [employer], [employer], [facility] Address [address] [place] [address] Care Team Providers Care Civil Engineering Project Designer Name Role Phone JACKI MAYEN Primary Care Provider [phone] Assessment Encounter Date Assessment Date Assessment LastModified by Organization Details LastModified Time 08/06/2021 08/06/2021 Uncle by ptosis of the right first fingernail debridement with Arabic toenail lateral and binocular microscope down to healthy tissue local care including vinegar or what ever drops he got at the pharmacy but Lamisil 250 daily for 90 days. Reassess in 3 months to see if it is better [email or web address] Not available 08/06/2021 12:41:02 08/20/2021 08/20/2021 Basal cell carcinoma the face recommend plastic surgical removal other lesions are benign. Make necessary referral [email or web address] Not available 08/20/2021 14:35:09 03/24/2022 03/24/2022 1. [...] office. Follow up other ansari as needed. [email or web address] Not available 03/24/2022 14:01:11 Plan of Treatment Reminders Order Date Submit Date Provider Last Modified By Organization Details Last Modified Time Details Appointments None recorded. Lab noninvasive colorectal cancer DNA + occult blood screening, QL, stool 2021 [employer] (Cologuard Orders Only), [address], [address], [place], [address], 22:18:26 Referral urologist referral - Please call the patient to schedule an appointment . 2021 022 [id number] Ricki Ellis MD ([facility]), [address] [place] [address] Rd, [address], [place], [address], 14:53:17 plastic surgeon referral - please call pt to schedule appointment 2021 022 [email or web address] 15 Derian Lopez MD, [address] [place] [address], [facility] [address], [address], 16:27:18 Procedures None recorded. Surgeries None recorded. Imaging None recorded. Medication Orders terbinafine HCl 250 mg tablet 2021 022 [id number] [id number], [address], [address], 10:51:20 Patient TargetsNo targets recorded. Patient Instructions Encounter Date Encounter Id Patient Instructions Last Modified By Organization Details Last Modified Time 03/24/2022 [id number] advance directives: care instructions [email or web address] Not available 03/24/2022 14:01:45 learning about living stokes [email or web address] Not available 03/24/2022 14:01:45 do not rescuscitate education [email or web address] Not available 03/24/2022 14:01:45 Advance Directives Education w/sample forms for Living Will/Health Care Surrogate [email or web address] Not available 03/24/2022 14:01:45 Reason for Referral [...] result reportable NEGATI VE negati ve NEGAT HERMEILNDO TEST RESUL T. A negat hermelindo Colog [...] of 10,00 0 indiv idual s at [facility] risk for color ectal cance r [...] tomat ic indiv idual s at [facility] risk for color ectal cance r. Follo [...] 112:1 016-1 030. TEST DESCR IPTIO N: Hostetter site algor ithmi c kylee sis of [...] years or older , who are at [facility] for color ectal cance r (CRC) . Colog uard has been appro fausto for use by the U.[place]. FDA. The perfo rmanc e of Colog uard was estab lishe d in a cross secti onal study of [facility] adult s aged 50-84 . Colog uard [...] of 0 indiv idual s at [facility] risk for color ectal cance r who [...] at [email or web address] torres [email or web address] om. Not Available [facility] (Cologuard Orders Only) [address], [place], [address], 09/06/2021 22:18:26 03/17/20 22 03/17/2022 URINA LYSIS , COMPL ETE W/ REFLE X TO CULTU RE urinalysis reflex COMMEN T This speci men will not refle x to a Urine Cultu re. Not Available [facility] [address] [place], [place] [address]y [address], [place], [address], 03/18/2022 06:09:13 03/17/20 22 03/18/2022 URINA LYSIS , COMPL ETE W/ REFLE X TO CULTU RE specific gravity 1.020 1.005- 1.030 normal Not Available [facility] [address] [place], [place] [address]y [address], [place], [address], 03/18/2022 06:09:13 03/17/20 22 03/18/2022 URINA LYSIS , COMPL ETE W/ REFLE X TO CULTU RE pH 5.5 5.0-7. 5 normal Not Available [facility] [address] [place], [place] [address]y [address], [place], [address], 03/18/2022 06:09:13 03/17/20 22 03/18/2022 URINA LYSIS , COMPL ETE W/ REFLE X TO CULTU RE urine-color YELLOW yellow normal Not Available [facility] [address] [place], [place] [address]y [address], [place], [address], 03/18/2022 06:09:13 03/17/20 22 03/18/2022 URINA LYSIS , COMPL ETE W/ REFLE X TO CULTU RE appearance CLEAR clear normal Not Available [facility] [address] [facility] [address], [place], [address], 03/18/2022 06:09:13 03/17/20 22 03/18/2022 URINA LYSIS , COMPL ETE W/ REFLE X TO CULTU RE WBC esterase NEGATI VE negati ve normal Not Available [facility] [address] [place], [place] [address]y [address], [place], [address], 03/18/2022 06:09:13 03/17/20 22 03/18/2022 URINA LYSIS , COMPL ETE W/ REFLE X TO CULTU RE protein TRACE negati ve/tra ce normal Not Available [facility] [address] [facility] [address], [place], [address], 03/18/2022 06:09:13 03/17/20 22 03/18/2022 URINA LYSIS , COMPL ETE W/ REFLE X TO CULTU RE glucose NEGATI VE negati ve normal Not Available [facility] [address] [facility] [address], [place], [address], 03/18/2022 06:09:13 03/17/20 22 03/18/2022 URINA LYSIS , COMPL ETE W/ REFLE X TO CULTU RE ketones NEGATI VE negati ve normal Not Available [facility] [address], [place], [address], 03/18/2022 06:09:13 03/17/20 22 03/18/2022 URINA LYSIS , COMPL ETE W/ REFLE X TO CULTU RE occult blood TRACE negati ve abnormal Not Available [facility] [address] [place], [address], 03/18/2022 06:09:13 03/17/20 22 03/18/2022 URINA LYSIS , COMPL ETE W/ REFLE X TO CULTU RE bilirubin NEGATI VE negati ve normal Not Available [facility] [address] [facility] [address] [place], [address], 03/18/2022 06:09:13 03/17/20 22 03/18/2022 URINA LYSIS , COMPL ETE W/ REFLE X TO CULTU RE urobilinogen ,semi-qn 0.2 mg/dL 0.2-1. 0 normal Not Available [facility] [address] [facility] [address], [place], [address], 03/18/2022 06:09:13 03/17/20 22 03/18/2022 URINA LYSIS , COMPL ETE W/ REFLE X TO CULTU RE nitrite, urine NEGATI VE negati ve normal Not Available [facility] [address], [place], [address], 03/18/2022 06:09:13 03/17/20 22 03/18/2022 URINA LYSIS , COMPL ETE W/ REFLE X TO CULTU RE microscopic examination SEE BELOW: normal Micro scopi c was indic ated and was perfo rmed. Not Available [facility] [address] [facility] [address], [place], [address], 03/18/2022 06:09:13 03/17/20 22 03/18/2022 URINA LYSIS , COMPL ETE W/ REFLE X TO CULTU RE WBC 0-5 /hpf 0 - 5 normal Not Available [facility] [address] [place], [address], 03/18/2022 06:09:13 03/17/20 22 03/18/2022 URINA LYSIS , COMPL ETE W/ REFLE X TO CULTU RE RBC 3-10 /hpf 0 - 2 abnormal Not Available [facility] [address] [facility] [address], [place], [address], 03/18/2022 06:09:13 03/17/20 22 03/18/2022 URINA LYSIS , COMPL ETE W/ REFLE X TO CULTU RE epithelial cells (non renal) NONE SEEN /hpf 0 - 10 normal Not Available [facility] [address] [facility] [address], [place], [address], 03/18/2022 06:09:13 03/17/20 22 03/18/2022 URINA LYSIS , COMPL ETE W/ REFLE X TO CULTU RE casts NONE SEEN /lpf none seen normal Not Available [facility] [address], [place], [address], 03/18/2022 06:09:13 03/17/20 22 03/18/2022 URINA LYSIS , COMPL ETE W/ REFLE X TO CULTU RE bacteria NONE SEEN none seen/f ew normal Not Available [facility] [address] [facility] [address], [place], [address], 03/18/2022 06:09:13 03/17/20 22 03/18/2022 CBC W/ AUTOD IFF, COMPL ETE BLOOD COUNT WBC 10.5 x10e3 /uL 3.4-10 .8 normal Not Available [facility] [address] [place], [place] [address]y [address], [place], [address], 03/18/2022 08:11:26 03/17/20 22 03/18/2022 CBC W/ AUTOD IFF, COMPL ETE BLOOD COUNT RBC 4.92 x10e6 /uL 4.14-5 .80 normal Not Available [facility] [address] [place], [place] [address]y [address], [place], [address], 03/18/2022 08:11:26 03/17/20 22 03/18/2022 CBC W/ AUTOD IFF, COMPL ETE BLOOD COUNT hemoglobin 15.2 g/dL 13.0-1 7.7 normal Not Available [facility] [address] [place], [address], 03/18/2022 08:11:26 03/17/20 22 03/18/2022 CBC W/ AUTOD IFF, COMPL ETE BLOOD COUNT hematocrit 46.2 % 37.5-5 1.0 normal Not Available [facility] [address] [place], [place] [address]y [address], [place], [address], 03/18/2022 08:11:26 03/17/20 22 03/18/2022 CBC W/ AUTOD IFF, COMPL ETE BLOOD COUNT MCV 94 fL 79-97 normal Not Available [facility], [place], [address], 03/18/2022 08:11:26 03/17/20 22 03/18/2022 CBC W/ AUTOD IFF, COMPL ETE BLOOD COUNT MCH 30.9 pg 26.6-3 3.0 normal Not Available [facility] [address], [place], [address], 03/18/2022 08:11:26 03/17/20 22 03/18/2022 CBC W/ AUTOD IFF, COMPL ETE BLOOD COUNT MCHC 32.9 g/dL 31.5-3 5.7 normal Not Available [facility], [place], [address], 03/18/2022 08:11:26 03/17/20 22 03/18/2022 CBC W/ AUTOD IFF, COMPL ETE BLOOD COUNT RDW 12.0 % 11.6-1 5.4 normal Not Available [facility] [address] [place], [address], 03/18/2022 08:11:26 03/17/20 22 03/18/2022 CBC W/ AUTOD IFF, COMPL ETE BLOOD COUNT platelets 292 x10e3 /uL 150-45 0 normal Not Available [facility], [place], [address], 03/18/2022 08:11:26 03/17/20 22 03/18/2022 CBC W/ AUTOD IFF, COMPL ETE BLOOD COUNT neutrophils 74 % not estab. normal Not Available [facility], [place], [address], 03/18/2022 08:11:26 03/17/20 22 03/18/2022 CBC W/ AUTOD IFF, COMPL ETE BLOOD COUNT lymphs 18 % not estab. normal Not Available [facility] [address] [facility] [address], [place], [address], 03/18/2022 08:11:26 03/17/20 22 03/18/2022 CBC W/ AUTOD IFF, COMPL ETE BLOOD COUNT monocytes 6 % not estab. normal Not Available [facility] [address] [facility] [address], [place], [address], 03/18/2022 08:11:26 03/17/20 22 03/18/2022 CBC W/ AUTOD IFF, COMPL ETE BLOOD COUNT eos 1 % not estab. normal Not Available [facility] [address] [facility] [address], [place], [address], 03/18/2022 08:11:26 03/17/20 22 03/18/2022 CBC W/ AUTOD IFF, COMPL ETE BLOOD COUNT basos 1 % not estab. normal Not Available [facility] [address] [facility] [address], [place], [address], 03/18/2022 08:11:26 03/17/20 22 03/18/2022 CBC W/ AUTOD IFF, COMPL ETE BLOOD COUNT neutrophils (absolute) 7.7 x10e3 /uL 1.4-7. 0 high Not Available [facility] [address] [facility] [address], [place], [address], 03/18/2022 08:11:26 03/17/20 22 03/18/2022 CBC W/ AUTOD IFF, COMPL ETE BLOOD COUNT lymphs (absolute) 1.9 x10e3 /uL 0.7-3. 1 normal Not Available [facility] [address] [facility] [address], [place], [address], 03/18/2022 08:11:26 03/17/20 22 03/18/2022 CBC W/ AUTOD IFF, COMPL ETE BLOOD COUNT monocytes(ab solute) 0.7 x10e3 /uL 0.1-0. 9 normal Not Available [facility] [address] [place] [address] [address], [place], [address], 03/18/2022 08:11:26 03/17/20 22 03/18/2022 CBC W/ AUTOD IFF, COMPL ETE BLOOD COUNT eos (absolute) 0.2 x10e3 /uL 0.0-0. 4 normal Not Available [facility] [address] [place] [address] [address], [place], [address], 03/18/2022 08:11:26 03/17/20 22 03/18/2022 CBC W/ AUTOD IFF, COMPL ETE BLOOD COUNT baso (absolute) 0.1 x10e3 /uL 0.0-0. 2 normal Not Available [facility] [address] [place] [address] [address], [place], [address], 03/18/2022 08:11:26 03/17/20 22 03/18/2022 CBC W/ AUTOD IFF, COMPL ETE BLOOD COUNT immature granulocytes 0 % not estab. normal Not Available [facility] [address] [place] [address] [address], [place], [address], 03/18/2022 08:11:26 03/17/20 22 03/18/2022 CBC W/ AUTOD IFF, COMPL ETE BLOOD COUNT immature grans (abs) 0.0 x10e3 /uL 0.0-0. 1 normal Not Available [facility] [address] [place] [address] [address], [place], [address], 03/18/2022 08:11:26 03/17/20 22 03/18/2022 CK creatine kinase,total 225 U/L 41-331 normal Not Available [facility] [address] [facility] [address], [place], [address], 03/18/2022 08:11:27 03/17/20 22 03/18/2022 CMP, COMPR EHENS HERMELINDO METAB OLIC PANEL glucose 103 mg/dL 65-99 high Not Available [facility] [address] [facility] [address], [place], [address], 03/18/2022 08:11:28 03/17/20 22 03/18/2022 CMP, COMPR EHENS HERMELINDO METAB OLIC PANEL BUN 15 mg/dL 8-27 normal Not Available [facility] [address] [facility] [address], [place], [address], 03/18/2022 08:11:28 03/17/20 22 03/18/2022 CMP, COMPR EHENS HERMELINDO METAB OLIC PANEL creatinine 1.12 mg/dL 0.76-1 .27 normal Not Available [facility] [address] [facility] [address], [place], [address], 03/18/2022 08:11:28 03/17/20 22 03/18/2022 CMP, COMPR EHENS HERMELINDO METAB OLIC PANEL eGFR 69 mL/mi n/1.7 3 >59 normal Not Available [facility] [address] [facility] [address], [place], [address], 03/18/2022 08:11:28 03/17/20 22 03/18/2022 CMP, COMPR EHENS HERMELINDO METAB OLIC PANEL BUN/creatini ne ratio 13 10-24 normal Not Available [facility] [address] [facility] [address], [place], [address], 03/18/2022 08:11:28 03/17/20 22 03/18/2022 CMP, COMPR EHENS HERMELINDO METAB OLIC PANEL sodium 140 mmol/ L 134-14 4 normal Not Available [facility] [address] [facility] [address], [place], [address], 03/18/2022 08:11:28 03/17/20 22 03/18/2022 CMP, COMPR EHENS HERMELINDO METAB OLIC PANEL potassium 4.3 mmol/ L 3.5-5. 2 normal Not Available [facility] [address] [facility] [address], [place], [address], 03/18/2022 08:11:28 03/17/2003/18/2022 CMP, COMPR EHENS HERMELINDO METAB OLIC PANEL chloride 100 mmol/ L 96-106 normal Not Available [facility] [address] [facility] [address], [place], [address], 03/18/2022 08:11:28 03/17/20 22 03/18/2022 CMP, COMPR EHENS HERMELINDO METAB OLIC PANEL carbon dioxide, total 26 mmol/ L 20-29 normal Not Available [facility] [address] [facility] [address], [place], [address], 03/18/2022 08:11:28 03/17/20 22 03/18/2022 CMP, COMPR EHENS HERMELINDO METAB OLIC PANEL calcium 9.9 mg/dL 8.6-10 .2 normal Not Available [facility] [address] [facility] [address], [place], [address], 03/18/2022 08:11:28 03/17/2003/18/2022 CMP, COMPR EHENS HERMELINDO METAB OLIC PANEL protein, total 7.2 g/dL 6.0-8. 5 normal Not Available [facility] [address] [facility] [address], [place], [address], 03/18/2022 08:11:28 03/17/20 22 03/18/2022 CMP, COMPR EHENS HERMELINDO METAB OLIC PANEL albumin 5.0 g/dL 3.7-4. 7 high Not Available [facility] [address] [facility] [address], [place], [address], 03/18/2022 08:11:28 03/17/20 22 03/18/2022 CMP, COMPR EHENS HERMELINDO METAB OLIC PANEL globulin, total 2.2 g/dL 1.5-4. 5 normal Not Available [facility] [address], [place], [address], 03/18/2022 08:11:28 03/17/2003/18/2022 CMP, COMPR EHENS HERMELINDO METAB OLIC PANEL A/G ratio 2.3 1.2-2. 2 high Not Available [facility] [address], [place], [address], 03/18/2022 08:11:28 03/17/20 22 03/18/2022 CMP, COMPR EHENS HERMELINDO METAB OLIC PANEL bilirubin, total 0.6 mg/dL 0.0-1. 2 normal Not Available [facility] [address], [place], [address], 03/18/2022 08:11:28 03/17/20 22 03/18/2022 CMP, COMPR EHENS HERMELINDO METAB OLIC PANEL alkaline phosphatase 139 IU/L 44-121 high Not Available [facility] [address] [facility] [address], [place], [address], 03/18/2022 08:11:28 03/17/2003/18/2022 CMP, COMPR EHENS HERMELINDO METAB OLIC PANEL AST (SGOT) 24 IU/L 0-40 normal Not Available [facility] [address], [place], [address], 03/18/2022 08:11:28 03/17/20 22 03/18/2022 CMP, COMPR EHENS HERMELINDO METAB OLIC PANEL ALT (SGPT) 29 IU/L 0-44 normal Not Available [facility] [address] [facility] [address], [place], [address], 03/18/2022 08:11:28 03/17/20 22 03/18/2022 LIPID PANEL REF DLDL cholesterol, total 222 mg/dL 100-19 9 high Not Available [facility] [address] [facility] [address], [place], [address], 03/18/2022 08:11:29 03/17/20 22 03/18/2022 LIPID PANEL REF DLDL triglyceride s 113 mg/dL 0-149 normal Not Available [facility] [address] [facility] [address] [place], [address], 03/18/2022 08:11:29 03/17/20 22 03/18/2022 LIPID PANEL REF DLDL HDL cholesterol 44 mg/dL >39 normal Not Available [facility] [address] [facility] [address] [place], [address], 03/18/2022 08:11:29 03/17/20 22 03/18/2022 LIPID PANEL REF DLDL LDL chol calc ([facility]) 158 mg/dL 0-99 high Not Available [facility] [address] [facility] [address], [place], [address], 03/18/2022 08:11:29 03/17/20 22 03/18/2022 LIPID PANEL REF DLDL T. chol/HDL ratio 5.0 ratio 0.0-5. 0 normal T. Chol/ HDL Ratio Men Women 1/2 Avg.R isk 3.4 3.3 Avg.R isk 5.0 4.4 2X Avg.R isk 9.6 7.1 3X Avg.R isk 23.4 11.0 Not Available [facility] [address] [facility] [address] [place], [address], 03/18/2022 08:11:29 03/17/20 22 03/18/2022 LIPID PANEL REF DLDL LDL/HDL ratio 3.6 ratio 0.0-3. 6 normal LDL/H DL Ratio Men Women 1/2 Avg.R isk 1.0 1.5 Avg.R isk 3.6 3.2 2X Avg.R isk 6.2 5.0 3X Avg.R isk 8.0 6.1 Not Available [facility] [address] [facility] [address] [place], [address], 03/18/2022 08:11:29 03/17/20 22 03/18/2022 LIPID PANEL REF DLDL LDL chol. (direct) 152 mg/dL 0-99 high Not Available [facility] [address] [facility] [address] [place], [address], 03/18/2022 08:11:29 03/17/20 22 03/18/2022 PSA DIAGN [...] t be inter prete d as absol [place] evide nce of the prese nce or absen ce of nidia oscar disea se. Not Available [facility] [address] [facility] [address] [place], [address], 03/18/2022 08:11:30 03/17/20 22 03/18/2022 VITAM IN [...] um and D. Basilia jacobs [place]: [facility] . 2. Graham pineda [place], Raffaele rasmussen [place], Nicky off-F sumit i FLORES, et al. Evalu ation , treat ment, and preve ntion of vitam in D defic iency : an Endoc rine Socie ty clini concha pract ice guide line. JCEM. 2010; 96(7) :1911 -30. Not Available [facility] [address] [place], [address], 03/18/2022 08:11:31 03/17/20 22 03/17/2022 VENIP UNCTU RE results Compl ete Not Available [facility] [address], [place], [address], 03/17/2022 09:15:24 03/19/20 22 03/20/2022 PSA (FREE [...] t be inter prete d as absol [place] evide nce of the prese nce or absen ce of cesario shelby se. Not Available [facility] [address], [place], [address], 03/20/2022 08:11:48 03/19/20 22 03/20/2022 PSA (FREE AND TOTAL ) PSA, free 0.76 NG/mL n/a normal Willam ECLIA metho dolog y. Not Available [facility] [address], [place], [address], 03/20/2022 08:11:48 03/19/20 22 03/20/2022 PSA (FREE [...] other popul ation of men. Not Available [facility] [address], [place], [address], 03/20/2022 08:11:48 03/19/20 22 03/20/2022 TESTO STERO NE testosterone 238 NG/dL 264-91 6 low Adult male refer ence inter keaton is based on a popul ation of healt hy nonob aron males (BMI <30) betwe en 19 and 39 years old. Velia sanderson et.al . JCEM 2017, 102;1 161-1 173. PMID: 64847 103. Not Available [facility] [address], [place], [address], 03/20/2022 08:11:49 03/19/20 22 03/19/2022 VENIP UNCTU RE results Compl ete Not Available [facility] [address], [place], [address], 03/19/2022 09:55:12 Result Notes None recorded. 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 Not Available [facility] 2 22:12:54 Persistent insomnia 755123487 Active Not Available [facility] 2 22:12:55 Asthma 753714535 Active Not Available [facility] 2 22:12:54 Generalized anxiety disorder 54366662 Active 2017 Not Available [facility] 2 22:12:54 Gastroesophag eal reflux disease 453773626 Active Not Available [facility] 2 22:12:55 Basal cell carcinoma of skin 545984998 Active 2019 Not Available [facility] 2 22:12:55 Pure hypercholeste rolemia 287495617 Active Not Available [facility] 2 22:12:54 Vitamin D deficiency 80290999 Active 2016 Not Available [facility] 22:12:54 Memory impairment 261774719 Active 2016 Not Available [facility] 22:12:[facility] Osteoarthriti s 013431041 Active 2016 Not Available [facility] 2 22:12:54 Obesity 721262881 Active 2017 Not Available [facility] 22:12:54 Allergic conjunctiviti s 024793132 Active Not Available [facility] 2 22:12:54 Hip pain 31904411 Active Not Available [facility] 2 22:12:55 Allergic rhinitis 54959641 Active Not Available [facility] 2 22:12:55 Sleep apnea 30308003 Active 2016 Not Available Critical access [facility] 2 22:12:55 Problem Notes None recorded. Procedures Surgical History Date Name Laterality Status Provider Name and Address Organization Details Recorded Time 03/24/20 Quality Functional Assessment completed [facility], [facility] 03/24/2022 11:18:07 03/24/20 22 Quality Medication Reviewed and Updated completed [facility] [place] 03/24/2022 11:18:07 03/24/20 22 Quality BMI with follow up completed [facility] [place] 03/24/2022 11:18:07 03/24/20 22 Quality Advanced Care Planning completed [facility] [place] 03/24/2022 11:18:07 03/24/20 22 Quality Incontinence Screening completed [facility] [place] 03/24/2022 11:18:07 03/24/20 22 Medicare AWV-Screening Schedule completed [facility] [place] 03/24/2022 11:18:07 03/24/20 22 Counseling: Advanced care planning completed MAURO Byrd [facility], [facility] 03/24/2022 13:55:20 03/24/20 22 Quality Fall Risk Assessment completed [facility], [facility] 03/24/2022 11:18:07 08/06/19 22 Nail Debridement completed Maeve Giles [facility], [facility] 08/06/2021 16:05:06 03/15/20 18 Feces-based colorectal cancer DNA screening [facility] 08/06/2021 09:59:56 07/18/19 colonoscopy completed Tracy Reagan [facility] 08/06/2021 09:58:40 [facility] umbilical hernia [facility] 09:58:31 Imaging Results None recorded. Procedure Notes None recorded. Medical Equipment None Reported. Allergies Allergen ID Allergen Name Allergen Category Reaction Reaction Severity Criticality Documentation Date Start Date Code Code System Note Provider Name and Address Organization Details Recorded Time 639098 Product containin g 3-hydroxy -3-methyl glutaryl- coenzyme A reductase inhibitor (product) medicatio n other moderate Not available 07/18/20212014 54804 009 SNOMED Palpi tatio ns Tracyjerry Reagan [facility], [facility] 12:32:35 Medications Name Sig Start Date Stop [...] Available Not Available Not Available Fluzone High-Dose 3143-2971 (PF) 180 mcg/0.5 mL intramusc ular syringe ADM 0.5ML IM UTD active Not Available Not Available No t Available Fluzone High-Dose 1539-9082 (PF) 180 mcg/0.5 mL intramusc ular syringe [...] Available Not Available Not Available Fluad Quad 6062-0818 (65yr up)(PF) 60 mcg (15 mcg x [...] cm 87 /min 18 /min 97.9 [degF] 40693.4 7 g 184 mm[Hg] 96 mm[Hg] Not Available [facility] 2 22:11:14 Date Recorded Body [...] 0 18 /min 98.1 [degF] 34.5 kg/m2 45197.5 9 g 183 mm[Hg] 96 mm[Hg] 177 mm[Hg] 96 mm[Hg] 135 mm[Hg] 84 mm[Hg] MAURO Byrd [place] - [facility] Physician [facility], [facility] 2 13:48:29 Date Recorded Body height Heart [...] 0 18 /min 98.2 [degF] 34.5 kg/m2 25304.5 9 g 172 mm[Hg] 99 mm[Hg] 176 mm[Hg] 81 mm[Hg] Jamaica Funk CMA [facility], [facility] 2 14:05:01 Date Recorded Body height Heart rate Pain severity - 0-10 verbal numeric rating [Score] - Reported Respiratory rate Body temperature Body mass index (BMI) Body weight Systolic blood pressure Diastolic blood pressure Systolic blood pressure Diastolic blood pressure Provider Name and Address Organization Details Last Updated DateTime 2 163.83 cm 89 /min 0 18 /min 98.1 [degF] 35 kg/m2 66250.0 2 g 181 mm[Hg] 97 mm[Hg] 171 mm[Hg] 98 mm[Hg] MAURO Byrd [facility], [facility] 2 13:32:03 Date Recorded Body height Heart rate Pain severity - 0-10 verbal numeric rating [Score] - Reported Respiratory rate Body temperature Body mass index (BMI) Body weight Systolic blood pressure Diastolic blood pressure Systolic blood pressure Diastolic blood pressure Provider Name and Address Organization Details Last Updated DateTime 2 163.83 cm 80 /min 0 18 /min 98.5 [degF] 34 kg/m2 55753.4 7 g 183 mm[Hg] 93 mm[Hg] 139 mm[Hg] 85 mm[Hg] Coni Mock [facility], [facility] 2 13:10:43 Social History Question Answer Notes LastModified by Organizat ion Details LastModified Time Tobacco Smoking Status Former Smoker MAURO Byrd [facility], [facility] 08/06/2021 09:58:08 Do You Have An Advance Directive? No [email or web address] Information not available 08/06/2021 What Is Your Level Of Alcohol Consumption? Occasional [email or web address] Information not available 08/06/2021 Are You Currently Employed? 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 No [email or web address] Information not available 08/06/2021 What Was The Date Of Your Most Recent Tobacco Screening? 08/06/2021 [email or web address] Information not available 08/06/2021 What Is Your Current Pack Years? 10packyears [email or web address] Information not available 08/06/2021 What Is Your Relationship Status? [email or web address] Information not available 08/06/2021 Do You Use Any Illicit Or Recreational Drugs? No Information not available 08/06/2021 Has Tobacco Cessation Counseling Been Provided? No [email or web address] Information not available 08/06/2021 Do You Or Have You Ever Used Any Other Forms Of Tobacco Or Nicotine? No Information not available 08/06/2021 Sex: Unknown Functional Status None recorded. Mental Status None recorded. Family History Relationship Description Onset Age of this Age Resolved Age Notes LastModified by Organization Details LastModified Time Father Cerebrovascu lar accident [email or web address] Not available 09:56:49 Mother Natural Not available 2021 09:57:03 Notes:1 brother, no problems . 2 children alive and well Medical History Condition Response Other Y Sleep disorder/Insomnia Y High Cholesterol Y Hepatitis Y GERD/Ulcer Y Asthma Y Allergies (other than meds) Y Immunizations Vaccine Type Date Status Note Provider Nam e and Address Organization Details Recorded Time Influenza, high-dose, quadrivalent, PF 2 completed Jacki Mayen MD [address], [place], [address], [facility] - [facility], [facility] 03/24/2022 16:33:59 Influenza, high-dose, trivalent, PF 5 completed Coni Mock [facility] [place] - [facility], [facility] 03/24/2022 11:18:31 Pneumococcal conjugate PCV 13 5 completed Coni Stuski null, [facility], [facility] 03/24/2022 11:18:31 Influenza, split virus, trivalent, preservative 4 completed Coni Stuski null, [facility], [facility] 03/24/2022 11:18:31 Influenza, split virus, quadrivalent, preservative 3 completed Coni Dulski null, [facility], [facility] 03/24/2022 13:11:35 Influenza, split virus, trivalent, preservative 2 completed Coni Stuski null, [facility], [facility] 03/24/2022 11:18:31 Influenza, split virus, trivalent, preservative 4 completed Coni Dulski null, [facility], [facility] 03/24/2022 11:18:31 Influenza, split virus, trivalent, preservative 3 completed Coni Stuski null, [facility], [facility] 03/24/2022 11:18:31 zoster live 0 completed Coni Dulski null, [facility], [facility] 03/24/2022 11:18:31 tetanus toxoid, unspecified formulation 0 completed Coni Dulski null, [facility], [facility] 03/24/2022 11:18:31 pneumococcal, unspecified formulation 0 completed Coni Dulski null, [facility], [facility] 03/24/2022 11:18:31 Influenza, adjuvanted, trivalent, PF 8 completed Cnoi Dulski null, [facility], [facility] 03/24/2022 11:18:31 Influenza, split virus, quadrivalent, PF 0 completed Coni Stuski null, [facility], [facility] 03/24/2022 11:18:31 tetanus toxoid, unspecified formulation 0 completed Coni Dulski null, [facility], [facility] 03/24/2022 11:18:31 Influenza, high-dose, trivalent, PF 6 completed Coni Dulski null, [facility], [facility] 03/24/2022 11:18:31 Influenza, high-dose, quadrivalent, PF 1 completed Coni Dulski null, [facility], [facility] 03/24/2022 11:18:31 Influenza, split virus, trivalent, preservative 3 completed Coni Dulski null, [facility], [facility] 03/24/2022 11:18:31 COVID-19, mRNA, LNP-S, PF, 100 mcg/0.5mL dose or 50 mcg/0.25mL dose 1 completed Coni Dulski null, [facility], [facility] 03/24/2022 11:18:31 Influenza, split virus, trivalent, PF 0 completed Coni Dulski null, [facility], [facility] 03/24/2022 11:18:31 pneumococcal, unspecified formulation 0 completed Coni Dulski null, [facility], [facility] 03/24/2022 11:18:31 Influenza, high-dose, trivalent, PF 7 completed Coni Dulski null, [facility], [facility] 03/24/2022 11:18:31 Influenza, split virus, quadrivalent, PF 0 completed Coni Dulski null, [facility], [facility] 03/24/2022 11:18:31 COVID-19, mRNA, LNP-S, PF, 100 mcg/0.5mL dose or 50 mcg/0.25mL dose 1 completed Coni Dulski null, [facility], [facility] 03/24/2022 11:18:31 COVID-19, mRNA, LNP-S, PF, 100 mcg/0.5mL dose or 50 mcg/0.25mL dose 1 completed Coni napoles, [facility], [facility] 03/24/2022 11:18:31 Influenza, adjuvanted, trivalent, PF 9 completed Coni napoles, [facility], [facility] 03/24/2022 11:18:31 COVID-19, mRNA, LNP-S, PF, 100 mcg/0.5mL dose or 50 mcg/0.25mL dose 2 completed Coni napoles, [facility], [facility] 03/24/2022 11:18:31 Past Encounters Encounter ID Performer Location Encounter Start Date Encounter Closed Date Diagnosis/Indication Diagnosis SNOMED-CT Code Diagnosis ICD10 Code Diagnosis Note [id number] [facility] [place] [address] [place] [address] [place] [address] 01/29/2013 00:00:00 02/16/2013 23:08:01 [id number] [facility] [place] [address] [place] [address] [place] [address] 04/23/2013 00:00:00 04/23/2013 20:09:08 [id number] [facility] [place] [address] [place] [address] [place] [address] 06/04/2013 00:00:00 06/04/2013 19:55:35 [id number] [facility] [place] [address] [place] [address] [place] [address] 06/18/2013 00:00:00 06/19/2013 22:49:49 [id number] [facility] [place] [address] [place] [address] [place] [address] 11/19/2013 00:00:00 11/19/2013 21:27:16 [id number] [facility] [place] [address] [place] [address] [place] [address] 12/25/2013 00:00:00 12/26/2013 21:41:49 [id number] [facility] [place] [address] [place] [address] [place] [address] 04/04/2014 00:00:00 04/04/2014 19:06:34 [id number] [facility] [place] [address] [place] [address] [place] [address] 01/07/2015 00:00:00 01/07/2015 18:27:58 [id number] [facility] [place] [address] [place] [address] [place] [address] 01/28/2015 00:00:00 01/28/2015 21:01:46 [id number] [facility] [place] [address] [place] [address] [place] [address] 04/01/2015 00:00:00 04/01/2015 18:52:17 [id number] [facility] [place] [address] [place] [address] [place] [address] 07/07/2015 00:00:00 07/07/2015 21:44:17 [id number] [facility] [place] [address] [place] [address] [place] [address] 08/07/2015 00:00:00 08/07/2015 21:17:51 [id number] [facility] [place] [address] [place] [address] [place] [address] 09/18/2015 00:00:00 09/18/2015 20:13:45 [id number] [facility] [place] [address] [place] [address] [place] [address] 10/08/2015 00:00:00 10/08/2015 19:09:09 [id number] [facility] [place] [address] [place] [address] [place] [address] 11/20/2015 00:00:00 11/20/2015 21:46:21 [id number] [facility] [place] [address] [place] [address] [place] [address] 12/08/2015 00:00:00 12/08/2015 18:20:53 [id number] [facility] [place] [address] [place] [address] [place] [address] 01/12/2016 00:00:00 01/12/2016 22:02:19 [id number] [facility] [place] [address] [place] [address] [place] [address] 02/11/2016 00:00:00 02/11/2016 20:10:25 [id number] [facility] [place] [address] [place] [address] [place] [address] 03/04/2016 00:00:00 03/04/2016 23:18:13 [id number] [facility] [place] [address] [place] [address] [place] [address] 03/11/2016 00:00:00 03/11/2016 17:49:47 [id number] [facility] [place] [address] [place] [address] [place] [address] 04/14/2016 00:00:00 04/14/2016 21:54:59 [id number] _ATHENA_M IGRATION_ DEFAULT_2 2_1 , 05/24/2016 00:00:00 05/25/2016 08:45:46 [id number] [facility] [place] [address] [place] [address] [place] [address] 06/29/2016 00:00:00 06/29/2016 19:47:09 [id number] [facility] [place] [address] [place] [address] [place] [address] 07/20/2016 00:00:00 07/20/2016 21:34:43 [id number] [facility] [place] [address] [place] [address] [place] [address] 07/22/2016 00:00:00 07/22/2016 20:16:36 [id number] [facility] [place] [address] [place] [address] [place] [address] 02/09/2017 00:00:00 02/09/2017 18:37:59 [id number] [facility] [place] [address] [place] [address] [place] [address] 06/03/2017 00:00:00 06/03/2017 16:36:35 [id number] [facility] [place] [address] [place] [address] [place] [address] 07/06/2017 00:00:00 07/06/2017 17:48:10 [id number] [facility] [place] [address] [place] [address] [place] [address] 10/12/2017 00:00:00 10/13/2017 08:49:40 [id number] [facility] [place] [address] [place] [address] [place] [address] 12/21/2017 00:00:00 12/21/2017 20:00:20 [id number] [facility] [place] [address] [place] [address] [place] [address] 03/07/2018 00:00:00 03/07/2018 16:46:30 [id number] [facility] [place] [address] [place] [address] [place] [address] 05/16/2018 00:00:00 05/16/2018 14:02:35 [id number] [facility] [place] [address] [place] [address] [place] [address] 06/16/2018 00:00:00 06/16/2018 12:12:36 [id number] [facility] [place] [address] [place] [address] [place] [address] 08/14/2018 00:00:00 08/14/2018 18:44:08 [id number] [facility] [place] [address] [place] [address] [place] [address] 09/04/2018 00:00:00 09/04/2018 16:20:16 [id number] [facility] [place] [address] [place] [address] [place] [address] 10/13/2018 00:00:00 10/13/2018 19:44:33 [id number] [facility] [place] [address] [place] [address] [place] [address] 11/30/2018 00:00:00 11/30/2018 19:06:17 [id number] [facility] [place] [address] [place] [address] [place] [address] 12/28/2018 00:00:00 12/28/2018 20:37:18 [id number] [facility] [place] [address] [place] [address] [place] [address] 03/02/2019 00:00:00 03/02/2019 17:55:28 [id number] [facility] [place] [address] [place] [address] [place] [address] 03/12/2019 00:00:00 03/12/2019 19:57:02 [id number] [facility] [place] [address] [place] [address] [place] [address] 04/16/2019 00:00:00 04/16/2019 12:42:36 [id number] [facility] [place] [address] [place] [address] [place] [address] 04/26/2019 00:00:00 04/26/2019 12:57:24 [id number] [facility] [place] [address] [place] [address] [place] [address] 06/04/2019 00:00:00 06/04/2019 19:50:38 [id number] [facility] [place] [address] [place] [address] [place] [address] 06/11/2019 00:00:00 06/11/2019 18:09:56 [id number] [facility] [place] [address] [place] [address] [place] [address] 06/21/2019 00:00:00 06/21/2019 21:27:46 [id number] [facility] [place] [address] [place] [address] [place] [address] 06/29/2019 00:00:00 06/29/2019 20:38:40 [id number] [facility] [place] [address] [place] [address] [place] [address] 07/26/2019 00:00:00 07/26/2019 21:47:48 [id number] [facility] IGRATION_ DEFAULT_2 2_1 , 09/04/2019 00:00:00 09/04/2019 13:55:20 [id number] [facility] [place] [address] [place] [address] [place] [address] 09/11/2019 00:00:00 09/11/2019 20:24:02 [id number] [facility] [place] [address] [place] [address] [place] [address] 11/08/2019 00:00:00 11/08/2019 10:03:23 [id number] [facility] [place] [address] [place] [address] [place] [address] 12/11/2019 00:00:00 12/11/2019 18:39:53 [id number] [facility]_ IGRATION_ DEFAULT_2 2_1 , 12/14/2019 00:00:00 12/14/2019 14:36:01 [id number] [facility] [place] [address] [place] [address] [place] [address] 01/15/2020 00:00:00 01/15/2020 13:12:43 [id number] [facility] [place] [address] [place] [address] [place] [address] 03/10/2020 00:00:00 03/10/2020 13:10:45 [id number] [facility] [place] [address] [place] [address] [place] [address] 03/17/2020 00:00:00 03/17/2020 18:38:52 [id number] [facility] [place] [address] [place] [address] [place] [address] 03/27/2020 00:00:00 03/27/2020 16:19:08 [id number] [facility] [place] [address] [place] [address] [place] [address] 04/17/2020 00:00:00 04/17/2020 20:35:51 [id number] [facility] [place] [address] [place] [address] [place] [address] 07/14/2020 00:00:00 07/14/2020 18:25:39 [id number] [facility] [place] [address] [place] [address] [place] [address] 08/04/2020 00:00:00 08/04/2020 20:45:13 [id number] [facility] [place] [address] [place] [address] [place] [address] 08/11/2020 00:00:00 08/11/2020 19:45:31 [id number] [facility] [place] [address] [place] [address] [place] [address] 08/20/2020 00:00:00 08/20/2020 15:42:53 [id number] [facility] [place] [address] [place] [address] [place] [address] 08/25/2020 00:00:00 08/25/2020 16:15:19 [id number] [facility] [place] [address] [place] [address] [place] [address] 09/23/2020 00:00:00 09/23/2020 20:04:26 [id number] [facility] [place] [address] [place] [address] [place] [address] 12/24/2020 00:00:00 12/24/2020 18:44:29 [id number] [facility] [place] [address] [place] [address] [place] [address] 03/18/2021 00:00:00 03/18/2021 14:22:16 [id number] [facility] [place] [address] [place] [address] [place] [address] 04/10/2021 00:00:00 04/10/2021 21:06:05 [id number] Jacki Mayen MD [facility] [place] [address] [place] [address] [place] [address] 08/06/2021 09:15:42 08/06/2021 16:05:26 Screening for malignant neoplasm of colon 132459168 Z12.12 Z12.11 patient unable or unwilling to have colonoscop y; alternativ e screening ordered Onychomycosis 078672597 B35.1 [id number] Jacki Mayen MD [facility] [place] [address] [place] [address] [place] [address] 08/20/2021 13:35:59 08/20/2021 15:31:32 Basal cell carcinoma of skin 453726291 C44.91 [id number] Jacki Mayen MD [facility] [place] [place] [address] [place] [address] [place] [address] 09/17/2021 13:14:55 09/17/2021 14:32:38 Gastroesophageal reflux disease 904994306 K21.9 He has gastroesop hageal reflux disease, he does not know what medicine he is taking but he is on Prilosec twice daily of tried him tell him to go to once every other day we have had discussion multiple times before he is no longer taking his sulcal fate his condition is stable and not progressin g Asthma 446091499 J45.90 9 Has had a lifetime of asthma reactive airways disease and is now using the albuterol 2 puffs every 6 hours only as needed and is no longer using his preventati ve medicine such as Advair Memory impairment 222928 006 R41.3 His memory impairment is getting worse out of extended private discussion with his today outside of this patient's presence she informs me that he is confused often and becoming very possessive of her and sad to watch his decline making her depressed Onychomycosis 562120500 B35.1 He still has a little toenail fungus of all of his problems is really the least of his issues with only a minor issue on his left great toe he is completed a course of Lamisil. Basal cell carcinoma of skin 035387379 C44.91 I recommende d to get the small basal cell the right side of his face surgically removed we have made alma ts for a plastic surgeon to see him [id number] Jacki Mayen MD [facility] [place] [address] [place] [address] [place] [address] 03/24/2022 12:46:01 03/24/2022 15:39:53 Adult health examination 162545611 Z00.00 Annual Wellness Visit done today Advance care planning 71 7537413 Z71.89 Active or passive immunization 612024291 Z23 Prostate s pecific antigen above reference range 076564476 R97.20 Dementia 77115247 F03.90 Blood in urine [id number] R31.9 Memory impairment 856229 006 R41.3 His memory impairment is getting worse out of extended private discussion with his today outside of this patient's presence she informs me that he is confused often and becoming very possessive of her and sad to watch his decline making her depressed Asthma 739257696 J45.90 9 Has had a lifetime of asthma reactive airways disease and is now using the albuterol 2 puffs every 6 hours only as needed and is no longer using his preventati ve medicine such as Advair Gastroesop hageal reflux disease 801649112 K21.9 He has gastroesop hageal reflux disease, [...] Glass Member ID Guarantor Name 08/06/2021 1 [employer] (MEDICARE REPLACEMENT HMO) Oswaldo Young [id number] 01 Oswaldo Young 08/20/2021 1 [employer] (MEDICARE REPLACEMENT HMO) Oswaldo Young [id number] 01 Oswaldo Young 09/17/2021 1 [employer] (MEDICARE REPLACEMENT HMO) Oswaldo Young [id number] 1 [id number] 01 Oswaldo Young 03/24/2022 1 [employer] (MEDICARE REPLACEMENT HMO) Oswaldo Young [id number] 01 Oswaldo Young Notes Date Note Type Note Provider Name and Address Organization Details Recorded Time 08/06/2021 text/html CORONAVIRUS SCREENING [id number] white male comes in today with a [...] vaccine product did you receive?Moderna Imported from [facility] on 08/06/2021 QUALITY MEASURE QUESTIONNAIRE ?Are you a diabetic patient ?No ?Has the Patient previously received any type of colorectal cancer screener ?No Imported from [facility] on 08/06/2021 Jacki Mayen MD [address] [facility] [address], [place], [address], [facility] - [facility], [facility] 08/06/2021 20:22:20 08/20/2021 text/html CORONAVIRUS SCREENING TOOLDiego [...] tested positive for COVID-19 ?No Imported from [facility] on 08/20/2021 Jacki Mayen MD [address] [place], [address], [facility] - [facility], [facility] 08/20/2021 19:04:39 09/17/2021 text/html CORONAVIRUS SCREENING TOOL [...] tested positive for COVID-19 ?No Imported from [place] on 09/17/2021 Jacki Mayen MD [address], [place], [address], [facility], [facility] 09/17/2021 19:15:56 03/24/2022 text/html Medicare Annual Wellness [...] month and they like to go to [employer]. He tells me that his dementia is not good but not bad and not changing. He had annual labs done on 03/17/22 and the results were reviewed today. He has no new complaints today. Jacki Mayen MD [address], [place], [address], [facility] - [facility], [facility] 03/24/2022 16:34:05
[2024-09-26 13:46] LABS: MANUAL DIFF FLAG NO
[2024-09-26 13:52] LABS: Basophils Percent Auto 0.3 % (0-2); Eosinophils Absolute Auto 0.2 X10*3/uL (0.0-0.4); Eosinophils Percent Auto 1.9 % (0-4); Hematocrit 43.9 % (42.0-52.0); Hemoglobin 14.7 g/dl (14.0-18.0); Imm Gran Abs Auto 0.03 X10*3/uL (0.00-0.03); Imm Gran Pct Auto 0.3 % (0.0-0.4); Lymphocytes Absolute Auto 1.7 X10*3/uL (1.2-4.9); Lymphocytes Percent Auto 19.2 % (20-40); Mean Corpuscular HGB Conc 33.5 g/dl (31.0-36.0); Mean Corpuscular Hemoglobin 32.2 pg (27.0-33.0); Mean Corpuscular Volume 96.1 fL (80.0-98.0); Mean Platelet Volume 9.6 fL (9.4-12.4); Monocytes Absolute Auto 0.8 X10*3/uL (0.1-1.2); Neutrophils Absolute Auto 6.1 x10*3/uL (2.0-8.3); Neutrophils Percent Auto 69.3 % (45-73); Platelet Count 302 X10*3/uL (160-400); Red Blood Count 4.57 X10*6/uL (4.60-5.80); Red Cell Distribution Width 12.4 % (11.0-16.0); White Blood Count 8.8 X10*3/uL (4.8-10.8)
[2024-09-26 14:00] LABS: Prothrombin Time 11.1 SEC (10.9-12.4)
[2024-09-26 14:02] LABS: Partial Thromboplastin Time 28.5 SEC (26.0-36.8)
[2024-09-26 14:11] LABS: Alanine Aminotransferase 23 U/L (0-40); Albumin Level 4.6 g/dL (3.5-5.0); Alkaline Phosphatase 79 U/L (39-117); Anion Gap 12 (12-20); Aspartate Amino Transferase 26 U/L (5-37); Bilirubin Total 0.7 mg/dL (0.0-1.0); Blood Urea Nitrogen 16 mg/dL (9-16); Calcium 9.6 mg/dL (8.4-10.2); Carbon Dioxide 28 mmol/L (22-29); Chloride 101 mmol/L (96-108); Estimated Glomerular Filt Rate 59; Glucose Random 104 mg/dL (60-115); Potassium 4.1 mmol/L (3.3-5.1); Sodium 137 mmol/L (135-145); Total Protein 7.7 g/dL (6.5-8.0)
[2024-09-26 14:13] LABS: Appearance Urine Clear; Color Urine Yellow; Glucose Urine UA Negative (Negative); Leukocyte Esterase Urine Negative (Negative); Nitrite Urine Negative (Negative); Specific Gravity - Urine 1.015 (1.005-1.025); UMIC TRIGGER UACC YES; Urine Blood Small (1+) (Negative); Urine Ketones Negative (Negative); Urine Protein Negative (Neg-Trace)
[2024-09-26 14:20] LABS: Bacteria Urine None Seen (None Seen); Hyaline Casts Urine 0-2 /LPF (0-2); Squamous Epithelial Cell Urine 0-2 /HPF (0-2); WBC Urine 0-5 /HPF (0-5)
[2024-09-26 14:27] LABS: TSH reflex Free T4 1.72 uIU/mL (0.32-4.0)
== END 2024-09-26 10:38 | disposition home or self-care (01) ==
LOC: HO.HMGCLDS 10:37
PROVIDERS: PCP Nurse Practitioner Family; Visit Provider Nurse Practitioner Family
DX: Z01.818 Encounter for other preprocedural examination (principal); Z79.01 Long term (current) use of anticoagulants
CPT/HCPCS: 36415; 80053; 81001; 81003; 84443; 85025; 85610; 85730

== ENCOUNTER 2024-11-01 12:38 | Outpatient (AMB) | payer MEDICARE, SELFPAY ==
[2024-11-01 12:44] VITALS: BP 112/68; PULSE 76; O2SAT 97; BMI 33.7
--- NOTE | 2024-11-01 12:44 | A.OFFPC_ITS ---
Vital Signs 11/01/24 12:44 Height 5 ft 7 in Weight 215 lb 2 oz BMI 33.7 BP 112/68 Blood Pressure Location Rt brachial Position Sitting Pulse 76 Pulse Source Pulse Oximeter Pulse Oximetry (%) 97 Oxygen Delivery Method Room Air Intake Visit Reasons: 5 months follow up - see comments Intake Note: Pt is here today for 5 month follow up. Allergies No Known Allergies Allergy (Verified 11/01/24 12:44) Tobacco use date assessed: 11/01/24 Last assessed Fall Risk: 11/01/24 Dental Screening Dental Screen Date: 11/01/24 Did you have a dental problem in the last 6 months where you did not have access to dental care?: No HPI 5 months follow up - see comments HPI Details Chief Complaint Follow-up for management of chronic conditions. History of Present Illness The patient is a 79-year-old male presenting for a follow-up visit primarily for the management of chronic conditions. He has an ongoing issue with elevated PSA levels, for which he is under urological care. He is also seeing a commercial collections specialist due to pulmonary nodules. His past medical history includes dyslipidemia, currently managed with a statin. He has essential hypertension, which remains stable. He denies having chest pain, dyspnea, fevers, chills, or blurred vision, and has not experienced headaches recently. Notably, he is morbidly obese, impacting his overall health management. Social History - Current level of activity impacts weig ht management. - Nutritional intake was not detailed. - No specific information on substance u se, family status, or employment was discussed. Health Maintenance - Currently on statin therapy for dyslip idemia. - Regular follow-up with urology and pul monary care. Review of Systems - Cardiovascular: Denies chest pain. - Respiratory: Denies shortness of breat h. - General: Denies fevers and chills. - Ophthalmologic: Denies blurred vision. - Neurologic: Denies headaches. Physical Exam General: Cooperative, healthy appearing, comfortable, no acute distress and well developed. Morbidly obese. Orientation: Patient oriented x3 Limitations: No limitations Head: Normal to inspection Ears: Hearing grossly normal bilaterally Nose: Normal external nose present Face and sinus: Normal facial exam Eyes: Appearance normal, both eyes and all related structures Neck: Normal visual inspection and Yes full ROM Respiratory: Normal respiratory effort and able to speak in complete sentences. Clear to auscultation bilaterally Cardiovascular: Regular rate and rhythm. Normal S1 and S2 GI: Normal to inspection. Soft to palpation and nontender Skin: No rashes or lesions noted Neuro: Patient oriented x3 Extremities: Normal to inspection Results Plan The plan includes maintaining the current statin regimen for dyslipidemia. Follow-ups remain scheduled with urology for elevated PSA levels and pulmonary specialists for the pulmonary nodules. Lifestyle changes, particularly for obesity, may be considered. Discussion Notes I discussed with the patient the ongoing management strategies for his elevated PSA and the need for continued urological care. The importance of regular follow-up visits and adherence to prescribed medications was emphasized, particularly in relation to his statin therapy for dyslipidemia and antihypertensives for stable blood pressure. No additional diagnostic studies were proposed during this visit, and we discussed the potential benefits of lifestyle modifications, without detailed plans set forth at this time. Return visits and the significance of monitoring his chronic conditions were also highlighted. Patient Instructions - Continue current statin medication. - Follow up with urology as previously s cheduled. - Continue monitoring with pulmonary spe cialist. - Consider lifestyle modifications for w eight management, such as better diet and more exercise. - Report any new or worsening symptoms i mmediately. PFSH Medical History VIANEY on CPAP Macular hole Pulmonary nodules Atelectasis Mild cognitive impairment Nodule of parotid gland Alzheimer disease Short-term memory loss Testicular hypofunction Lipoma Vitamin D deficiency Insomnia Osteoarthritis Impotence Asthma GERD (gastroesophageal reflux disease) Sleep apnea Surgical History H/O wrist surgery H/O colonoscopy History of esophagogastroduodenoscopy (EGD) Family History Father Stroke Social History Housing: Apartment Patient Tobacco Use Status: Never used Tobacco e-Cigarette/Vaping Use: Never Used Second Hand Smoke Exposure: No service: Yes Current occupational status: retired Cognitive needs: No Hearing needs: No Vision needs: No Questionnaire PHQ-9 Over the last 2 weeks, how often have you been bothered by any of the following problems? 1. Little interest or pleasure in doing things: not at all 2. Feeling down, depressed, or hopeless: not at all 3. Trouble falling or staying asleep, or sleeping too much: not at all 4. Feeling tired or having little energy: not at all 5. Poor appetite or overeating: not at all 6. Feeling bad about yourself - or that you are a failure or have let yourself or your family down: not at all 7. Trouble concentrating on things, such as reading the newspaper or watching television: not at all 8. Moving or speaking so slowly that other people could have noticed. Or the opposite - being so fidgety or restless that you have been moving around a lot more than usual: not at all 9. Thoughts that you would be better off or of hurting yourself in some way: not at all Total score: 0 Depression Screening Interpretation: Negative Depression Screening Done: Yes 89919 - PHQ-9 Billing: Yes Source: Developed by Drs. Katrhik Espinosa, Ginger Carpio, Augusto Arellano and colleagues, with an educational breanna from [employer]. Thrive Questionnaire Date Thrive assessed: 11/01/24 I am a: Patient What is your living situation today?: I have a steady place to live Within the past 12 months, did the food you bought not last and you didn't have the money to get more?: Never true Within the past 12 months, did you worry whether your food would run out before you got money to buy more?: Never true Do you have trouble paying for medicines?: No Do you have trouble getting transportation to medical appointments?: No Do you have trouble paying your heating and electricity bill?: No Do you have trouble taking care of your child, family member or friend?: I choose not to answer this question Do you have trouble with day-to-day activities such as bathing, preparing meals, shopping, managing finances, etc.?: No Are you currently unemployed and looking for a job?: No Are you interested in more education?: No Please select the resources that you would like help with: None Currently or been in a relationship where the following occur: No concerns reported THRIVE Score: 0 AUDIT C Alcohol Use Questionnaire (AUDIT-C) 1. How often do you have a drink containing alcohol?: Never 3. How often do you have six or more drinks on one occasion?: Never Total Score: 0 Score Reviewed/Action Taken: Yes TRINIDAD-7 AMB Questionnaire TRINIDAD-7 Date TRINIDAD - 7 assessed: 11/01/24 Feeling nervous, anxious, or on edge: 0 = Not at all Not being able to stop or control worryin = Not at all Worrying too much about different things: 0 = Not at all Trouble relaxin = Not at all Being so restless that it is hard to sit still: 0 = Not at all Becoming easily annoyed or irritable: 0 = Not at all Feeling afraid as if something awful might happen: 0 = Not at all Total TRINIDAD-7 score (0-4 normal; 5-9 mild; 10-14 moderate; 15-21 severe): 0 Source: Developed by Drs. Karthik Espinosa, Ginger Carpio, Augusto Arellano and colleagues, with an educational breanna from [employer]. TRINIDAD-7 Assessment Billing TRINIDAD-7 Assessment Tool: TRINIDAD-7 Assessment 11152 Physical exam (Primary Care) Vital Signs: Last Vital Signs Pulse 76 11/01/24 12:44 BP 112/68 11/01/24 12:44 Pulse Ox 97 11/01/24 12:44 Oxygen Delivery Method Room Air 11/01/24 12:44 BMI result Body Mass Index 33.7 Tobacco/Smoking Status: Tobacco use Status Tobacco use date assessed 11/01/24 11/01/24 12:45 Patient Tobacco Use Status Never used Tobacco 11/01/24 12:45 e-Cigarette/Vaping Use Never Used 11/01/24 12:45 PHQ-9: PHQ-9 Score PHQ-9: Total score 0 11/01/24 12:45 Depression Screening Interpretation: Negative Thrive Assessment: Date of Thrive Assessment Date Thrive assessed 11/01/24 11/01/24 12:45 Currently or been in a relationship where the following occur: No concerns reported Coding Level of Care Code Est Pt Level 3 (32981) Diagnoses HTN (hypertension) I10 Dyslipidemia E78.5 Additional Codes TRINIDAD-7 Assessment Billing - TRINIDAD-7 Assessment Tool: TRINIDAD-7 Assessment 38054 ([id number]) PHQ-9 - 39535 - PHQ-9 Billing: Yes ([id number]) Assessment & Plan Assessment & Plan (1) HTN (hypertension): Code(s): I10 - Essential (primary) hypertension Category: Medical (2) Dyslipidemia: Code(s): E78.5 - Hyperlipidemia, unspecified Category: Medical Plan . Orders: Orders Lipid Panel Today E78.5 - Hyperlipidemia, unspecified, I10 - Essential (primary) hypertension
--- OUTSIDE RECORDS SUMMARY | 2024-11-01 15:26 | XMS_ITS | Data Portability ---
Author Organization [place] - [facility], Allergy Address [address] [address] Care Team Providers Care Bus Analyst Name Role Phone HARRIS PENNY Primary Care Provider Assessment Encounter Date Assessment Date Assessment LastModified by Organization Details LastModified Time 02/10/2024 02/10/2024 Patient was referred for evaluation of left parotid nodule. 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 Procedures Surgical History Date Name Laterality Status Provider Name and Address Organization Details Recorded Time procedure on wrist completed Ca Dawson [place] - [facility] 02/10/2024 14:09:06 Imaging Results Imaging Date [...] DAY, [facility] completed Not Available Not Available Not Available cholecalcif mahesh (vitamin D3) 50 mcg (2,000 unit) capsule TAKE 1 CAPSULE BY MOUTH EVERY DAY active Not Available Not Available No t Available Vitals Date Recorded Body height Body mass index (BMI) Body weight Provider Name and Address Organization Details Last Updated DateTime 02/10/2024 170.18 cm 34 kg/m2 82300.54 g Ca Dawson [place] [facility] 02/10/2024 14:32:31 Social History None recorded. Functional Status None recorded. Mental Status None recorded. Family History Nothing Reported. Medical History Condition Response Arthritis Y Hypertension Y Past Encounters Encounter ID Performer Location Encounter Start Date Encounter Closed Date Diagnosis/Indication Diagnosis SNOMED-CT Code Diagnosis ICD10 Code Diagnosis Note [id number] ARTURO CONN MD [facility] [address] [facility] [place] [address] 02/10/2024 13:39:06 02/10/2024 14:58:39 Neoplasm of uncertain behavior of parotid gland 84439708 D37.030 Health Concerns Section Related Observation LastModified by Organization Detai ls LastModified Time None Recorded Concern Status LastModified by Organization Details LastModified Time None Recorded Advance Directives Directive None Recorded Payers Encounter Date Sequence Insurance Name Policy Number Policy Glass Covered Member ID Glass Member ID Guarantor Name 02/10/2024 1 [employer] - MEDICARE ADVANTAGE PLAN (MEDICARE REPLACEMENT HMO) [id number] Oswaldo Young [id number] Oswaldo Young Notes Date Note Type Note [...] spine 4mm hypodensity left parotid retired from [employer] ARTURO CONN MD [address] [address], [place], [address], [facility] - [facility] 02/10/2024 14:56:17
--- OUTSIDE RECORDS SUMMARY | 2024-11-01 15:26 | XMS_ITS | Data Portability ---
Author Organization [place] [facility] Address 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 given his failing memory I recommended he decrease his Prilosec which he takes for GERD every other day and see if he can tolerate that he was taking it b.i.d. that q.day now with no symptoms. 4. allergic rhinitis using dukd-jel-ogeripo medications. 5. Asthma not using any medications at this time has been on Advair in the past. 6. GERD as stated above. 7. Preventive healthcare discuss he is up-to-date with all vaccines gets a comprehensive eye exam every year his pain level is 0/10 [email or web address] Not available 03/18/2021 13:51:20 04/10/2021 04/10/2021 75-year-old [...] vitamin D, 25-hydroxy, total, serum 2020 021 [facility], [address], [place], [address], 08:13:21 lipid panel, serum 2020 021 [facility], [address], [place], [address], 08:13:19 CMP, serum or plasma 2020 021 [facility], [address], [place], [address], 08:13:18 PSA, total, serum or plasma 2020 021 [facility], [address], [place], [address], 08:13:21 TSH, serum or plasma 2020 021 [facility], [address], [place], [address], 08:13:20 urinalysis complete, reflex culture 2020 021 [facility], [address], [place], [address], 08:13:18 CBC w/ auto diff 2020 021 [facility], [address], [place], [address], 08:13:17 Referral None recorded. Procedures None recorded. Surgeries None recorded. Imaging None recorded. Medication Orders None recorded. Patient TargetsNo targets recorded. Patient Instructions Encounter Date Encounter Id Patient Instructions Last Modified By Organization Details Last Modified Time 03/18/2021 [id number] alcohol use disorders identification test* [email or web address] Not available 03/18/2021 13:53:15 fall risk screening* [email or web address] Not agnes ilable 03/18/2021 13:53:15 geriatric depres logan screen* [email or web address] Not available 03/18/2021 13:53:15 multi-dimensiona l health assessment questionnaire* JUAN Not available 03/18/2021 21:36:12 Advance Care Directives Patient WebLink Handout [email or web address] Not available 03/18/2021 13:53:15 advance directiv es: care instructions [email or web address] Not available 03/18/2021 13:53:15 Personalized Hea lth [...] ? Pain Management Plan: ? ? ? [email or web address] Not available 03/18/2021 13:13:00 10/26/2021 [id number] learning about b yuki cell skin cancer Not available 10/26/2021 16:23:55 skin lesions: ca re instructions Not available 10/26/2021 16:23:55 Reason for Referral None Reported. Results Created Date Observation Date Name Description Value Unit Range Abnormal Flag Note LastModifiedBy Organization Detail LastModifiedTime 03/24/20 21 03/25/2021 CBC WITH DIFFE RENTI AL/PL ATELE T WBC 10.1 x10e3 /uL 3.4-10 .8 Not Available [facility] ([facility]) [address] [facility], [place], [address], 03/28/2021 08:13:16 03/24/20 21 03/25/2021 CBC WITH DIFFE RENTI AL/PL ATELE T RBC 4.80 x10e6 /uL 4.14-5 .80 Not Available [facility] ([facility]) [address] [facility], [place], [address], 03/28/2021 08:13:16 03/24/2003/25/2021 CBC WITH DIFFE RENTI AL/PL ATELE T hemoglobin 15.7 g/dL 13.0-1 7.7 Not Available [facility] ([facility]) [address] [facility], [place], [address], 03/28/2021 08:13:16 03/24/2003/25/2021 CBC WITH DIFFE RENTI AL/PL ATELE T hematocrit 44.9 % 37.5-5 1.0 Not Available [facility] ([facility]) [address] [facility], [place], [address], 03/28/2021 08:13:16 03/24/2003/25/2021 CBC WITH DIFFE RENTI AL/PL ATELE T MCV 94 fL 79-97 Not Available [facility] ([facility]) [address] [facility], [place], [address], 03/28/2021 08:13:16 03/24/20 21 03/25/2021 CBC WITH DIFFE RENTI AL/PL ATELE T MCH 32.7 pg 26.6-3 3.0 Not Available [facility] ([facility]) [address] [facility], [place], [address], 03/28/2021 08:13:16 03/24/2003/25/2021 CBC WITH DIFFE RENTI AL/PL ATELE T MCHC 35.0 g/dL 31.5-3 5.7 Not Available [facility] ([facility]) [address] [facility], [place], [address], 03/28/2021 08:13:16 03/24/2003/25/2021 CBC WITH DIFFE RENTI AL/PL ATELE T RDW 12.1 % 11.6-1 5.4 Not Available [facility] ([facility]) [address] [facility], [place], [address], 03/28/2021 08:13:16 03/24/2003/25/2021 CBC WITH DIFFE RENTI AL/PL ATELE T platelets 303 x10e3 /uL 150-45 0 Not Available [facility] ([facility]) [address] [facility], [place], [address], 03/28/2021 08:13:16 03/24/2003/25/2021 CBC WITH DIFFE RENTI AL/PL ATELE T neutrophils 68 % not estab. Not Available [facility] ([facility]) [address] [facility], [place], [address], 03/28/2021 08:13:16 03/24/2003/25/2021 CBC WITH DIFFE RENTI AL/PL ATELE T lymphs 23 % not estab. Not Available [facility] ([facility]) [address] [facility], [place], [address], 03/28/2021 08:13:16 03/24/20 21 03/25/2021 CBC WITH DIFFE RENTI AL/PL ATELE T monocytes 7 % not estab. Not Available [facility] ([facility]) [address] [facility], [place], [address], 03/28/2021 08:13:16 03/24/20 21 03/25/2021 CBC WITH DIFFE RENTI AL/PL ATELE T eos 2 % not estab. Not Available [facility] ([facility]) [address] [facility], [place], [address], 03/28/2021 08:13:16 03/24/2003/25/2021 CBC WITH DIFFE RENTI AL/PL ATELE T basos 0 % not estab. Not Available [facility] ([facility]) [address] [place], [address], 03/28/2021 08:13:16 03/24/2003/25/2021 CBC WITH DIFFE RENTI AL/PL ATELE T immature cells INFORMATION CLERK Not Available [facility] ([facility]) [address] [place], [address], 03/28/2021 08:13:16 03/24/2003/25/2021 CBC WITH DIFFE RENTI AL/PL ATELE T neutrophils (absolute) 6.8 x10e3 /uL 1.4-7. 0 Not Available [facility] ([facility]) [address] [place], [address], 03/28/2021 08:13:16 03/24/2003/25/2021 CBC WITH DIFFE RENTI AL/PL ATELE T lymphs (absolute) 2.3 x10e3 /uL 0.7-3. 1 Not Available [facility] ([facility]) [address] [place], [address], 03/28/2021 08:13:16 03/24/2003/25/2021 CBC WITH DIFFE RENTI AL/PL ATELE T monocytes(ab solute) 0.7 x10e3 /uL 0.1-0. 9 Not Available [facility] ([facility]) [address] [place], [address], 03/28/2021 08:13:16 03/24/20 21 03/25/2021 CBC WITH DIFFE RENTI AL/PL ATELE T eos (absolute) 0.2 x10e3 /uL 0.0-0. 4 Not Available [facility] ([facility]) [address] [facility], [place], [address], 03/28/2021 08:13:16 03/24/20 21 03/25/2021 CBC WITH DIFFE RENTI AL/PL ATELE T baso (absolute) 0.0 x10e3 /uL 0.0-0. 2 Not Available [facility] ([facility]) [address] [facility], [place], [address], 03/28/2021 08:13:16 03/24/20 21 03/25/2021 CBC WITH DIFFE RENTI AL/PL ATELE T immature granulocytes 0 % not estab. Not Available [facility] ([facility]) [address] [facility], [place], [address], 03/28/2021 08:13:16 03/24/20 21 03/25/2021 CBC WITH DIFFE RENTI AL/PL ATELE T immature grans (abs) 0.0 x10e3 /uL 0.0-0. 1 Not Available [facility] ([facility]) [address] [facility], [place], [address], 03/28/2021 08:13:16 03/24/20 21 03/25/2021 CBC WITH DIFFE RENTI AL/PL ATELE T NRBC INFORMATION CLERK Not Available [facility] ([facility]) [address] [facility], [place], [address], 03/28/2021 08:13:16 03/24/20 21 03/25/2021 CBC WITH DIFFE RENTI AL/PL ATELE T hematology comments: INFORMATION CLERK Not Available [facility] ([facility]) [address] [facility], [place], [address], 03/28/2021 08:13:16 03/24/20 21 03/25/2021 COMP. METAB OLIC PANEL (14) glucose 101 mg/dL 65-99 above high normal Not Available [facility] ([facility]) [address] [facility], [place], [address], 03/28/2021 08:13:17 03/24/20 21 03/25/2021 COMP. METAB OLIC PANEL (14) BUN 17 mg/dL 8-27 Not Available [facility] ([facility]) [address] [facility], [place], [address], 03/28/2021 08:13:17 03/24/20 21 03/25/2021 COMP. METAB OLIC PANEL (14) creatinine 1.06 mg/dL 0.76-1 .27 Not Available [facility] ([facility]) [address] [facility], [place], [address], 03/28/2021 08:13:17 03/24/20 21 03/25/2021 COMP. METAB OLIC PANEL (14) eGFR if nonafricn AM 69 mL/mi n/1.7 3 >59 Not Available [facility] ([facility]) [address] [facility], [place], [address], 03/28/2021 08:13:17 03/24/20 21 03/25/2021 COMP. METAB [...] SN Task force . Not Available [facility] ([facility]) [address] [facility], [place], [address], 03/28/2021 08:13:17 03/24/20 21 03/25/2021 COMP. METAB OLIC PANEL (14) BUN/creatini ne ratio 16 10-24 Not Available [facility] ([facility]) [address] [facility] [place], [address], 03/28/2021 08:13:17 03/24/20 21 03/25/2021 COMP. METAB OLIC PANEL (14) sodium 143 mmol/ L 134-14 4 Not Available [facility] ([facility]) [address] [facility] [place], [address], 03/28/2021 08:13:17 03/24/20 21 03/25/2021 COMP. METAB OLIC PANEL (14) potassium 4.7 mmol/ L 3.5-5. 2 Not Available [facility] ([facility]) [address] [facility] [place], [address], 03/28/2021 08:13:17 03/24/20 21 03/25/2021 COMP. METAB OLIC PANEL (14) chloride 100 mmol/ L 96-106 Not Available [facility] ([facility]) [address] [facility] [place], [address], 03/28/2021 08:13:17 03/24/20 21 03/25/2021 COMP. METAB OLIC PANEL (14) carbon dioxide, total 24 mmol/ L 20-29 Not Available [facility] ([facility]) [address] [facility] [place], [address], 03/28/2021 08:13:17 03/24/20 21 03/25/2021 COMP. METAB OLIC PANEL (14) calcium 9.5 mg/dL 8.6-10 .2 Not Available [facility] ([facility]) [address] [facility] [place], [address], 03/28/2021 08:13:17 03/24/20 21 03/25/2021 COMP. METAB OLIC PANEL (14) protein, total 7.1 g/dL 6.0-8. 5 Not Available [facility] ([facility]) [address] [place], [address], 03/28/2021 08:13:17 03/24/20 21 03/25/2021 COMP. METAB OLIC PANEL (14) albumin 4.7 g/dL 3.7-4. 7 Not Available [facility] ([facility]) [address] [place], [address], 03/28/2021 08:13:17 03/24/20 21 03/25/2021 COMP. METAB OLIC PANEL (14) globulin, total 2.4 g/dL 1.5-4. 5 Not Available [facility] ([facility]) [address] [place], [address], 03/28/2021 08:13:17 03/24/20 21 03/25/2021 COMP. METAB OLIC PANEL (14) A/G ratio 2.0 1.2-2. 2 Not Available [facility] ([facility]) [address] [place], [address], 03/28/2021 08:13:17 03/24/20 21 03/25/2021 COMP. METAB OLIC PANEL (14) bilirubin, total 0.4 mg/dL 0.0-1. 2 Not Available [facility] ([facility]) [address] [place], [address], 03/28/2021 08:13:17 03/24/20 21 03/25/2021 COMP. METAB [...] 121 44 - 121 Not Available [facility] ([facility]) [address] [place], [address], 03/28/2021 08:13:17 03/24/20 21 03/25/2021 COMP. METAB OLIC PANEL (14) AST (SGOT) 26 IU/L 0-40 Not Available [facility] ([facility]) [address] [place], [address], 03/28/2021 08:13:17 03/24/20 21 03/25/2021 COMP. METAB OLIC PANEL (14) ALT (SGPT) 34 IU/L 0-44 Not Available [facility] ([facility]) [address] [place], [address], 03/28/2021 08:13:17 03/24/20 21 03/25/2021 UA WITH CULTU RE REFLE X specific gravity 1.019 1.005- 1.030 Not Available [facility] ([facility]) [address] [place], [address], 03/28/2021 08:13:18 03/24/20 21 03/25/2021 UA WITH CULTU RE REFLE X pH 6.0 5.0-7. 5 Not Available [facility] ([facility]) [address] [place], [address], 03/28/2021 08:13:18 03/24/20 21 03/25/2021 UA WITH CULTU RE REFLE X urine-color Yellow yellow Not Available [facility] ([facility]) [address] [place], [address], 03/28/2021 08:13:18 03/24/20 21 03/25/2021 UA WITH CULTU RE REFLE X appearance Clear clear Not Available [facility] ([facility]) [address] [facility], [place], [address], 03/28/2021 08:13:18 03/24/20 21 03/25/2021 UA WITH CULTU RE REFLE X WBC esterase Negati ve negati ve Not Available [facility] ([facility]) [address] [facility], [place], [address], 03/28/2021 08:13:18 03/24/20 21 03/25/2021 UA WITH CULTU RE REFLE X protein Negati ve negati ve/tra ce Not Available [facility] ([facility]) [address] [facility], [place], [address], 03/28/2021 08:13:18 03/24/20 21 03/25/2021 UA WITH CULTU RE REFLE X glucose Negati ve negati ve Not Available [facility] ([facility]) [address] [facility], [place], [address], 03/28/2021 08:13:18 03/24/20 21 03/25/2021 UA WITH CULTU RE REFLE X ketones Negati ve negati ve Not Available [facility] ([facility]) [address] [place], [address], 03/28/2021 08:13:18 03/24/20 21 03/25/2021 UA WITH CULTU RE REFLE X occult blood Trace negati ve abnormal Not Available [facility] ([facility]) [address] [place], [address], 03/28/2021 08:13:18 03/24/20 21 03/25/2021 UA WITH CULTU RE REFLE X bilirubin Negati ve negati ve Not Available [facility] ([facility]) [address] [facility], [place], [address], 03/28/2021 08:13:18 03/24/20 21 03/25/2021 UA WITH CULTU RE REFLE X urobilinogen ,semi-qn 0.2 mg/dL 0.2-1. 0 Not Available [facility] ([facility]) [address] [facility], [place], [address], 03/28/2021 08:13:18 03/24/20 21 03/25/2021 UA WITH CULTU RE REFLE X nitrite, urine Negati ve negati ve Not Available [facility] ([facility]) [address] [facility], [place], [address], 03/28/2021 08:13:18 03/24/20 21 03/25/2021 UA WITH CULTU RE REFLE X microscopic examination See below: Micro scopi c was indic ated and was perfo rmed. Not Available [facility] ([facility]) [address] [facility], [place], [address], 03/28/2021 08:13:18 03/24/20 21 03/25/2021 UA WITH CULTU RE REFLE X WBC None seen /hpf 0 - 5 Not Available [facility] ([facility]) [address] [facility], [place], [address], 03/28/2021 08:13:18 03/24/20 21 03/25/2021 UA WITH CULTU RE REFLE X RBC 0-2 /hpf 0 - 2 Not Available [facility] ([facility]) [address] [facility], [place], [address], 03/28/2021 08:13:18 03/24/20 21 03/25/2021 UA WITH CULTU RE REFLE X epithelial cells (non renal) None seen /hpf 0 - 10 Not Available [facility] ([facility]) [address] [facility], [place], [address], 03/28/2021 08:13:18 03/24/20 21 03/25/2021 UA WITH CULTU RE REFLE X epithelial cells (renal) INFORMATION CLERK Not Available [facility] ([facility]) [address], [place], [address], 03/28/2021 08:13:18 03/24/20 21 03/25/2021 UA WITH CULTU RE REFLE X casts None seen /lpf none seen Not Available [facility] ([facility]) [address], [place], [address], 03/28/2021 08:13:18 03/24/20 21 03/25/2021 UA WITH CULTU RE REFLE X cast type INFORMATION CLERK Not Available [facility] ([facility]) [address], [place], [address], 03/28/2021 08:13:18 03/24/20 21 03/25/2021 UA WITH CULTU RE REFLE X crystals INFORMATION CLERK Not Available [facility] ([facility]) [address], [place], [address], 03/28/2021 08:13:18 03/24/20 21 03/25/2021 UA WITH CULTU RE REFLE X crystal type INFORMATION CLERK Not Available [facility] ([facility]) [address], [place], [address], 03/28/2021 08:13:18 03/24/20 21 03/25/2021 UA WITH CULTU RE REFLE X mucus threads INFORMATION CLERK Not Available [facility] ([facility]) [address], [place], [address], 03/28/2021 08:13:18 03/24/20 21 03/25/2021 UA WITH CULTU RE REFLE X bacteria None seen none seen/f ew Not Available [facility] ([facility]) [address], [place], [address], 03/28/2021 08:13:18 03/24/20 21 03/25/2021 UA WITH CULTU RE REFLE X yeast INFORMATION CLERK Not Available [facility] ([facility]) [address] [place], [address], 03/28/2021 08:13:18 03/24/20 21 03/25/2021 UA WITH CULTU RE REFLE X trichomonas INFORMATION CLERK Not Available [facility] ([facility]) [address] [place], [address], 03/28/2021 08:13:18 03/24/20 21 03/25/2021 UA WITH CULTU RE REFLE X comment INFORMATION CLERK Not Available [facility] ([facility]) [address] [place], [address], 03/28/2021 08:13:18 03/24/20 21 03/25/2021 UA WITH CULTU RE REFLE X urinalysis reflex Commen t This speci men will not refle x to a Urine Cultu re. Not Available [facility] ([facility]) [address] [place], [address], 03/28/2021 08:13:18 03/24/20 21 03/25/2021 LIPID PANEL cholesterol, total 235 mg/dL 100-19 9 above high normal Not Available [facility] ([facility]) [address] [place], [address], 03/28/2021 08:13:19 03/24/20 21 03/25/2021 LIPID PANEL triglyceride s 157 mg/dL 0-149 above high normal Not Available [facility] ([facility]) [address] [place], [address], 03/28/2021 08:13:19 03/24/20 21 03/25/2021 LIPID PANEL HDL cholesterol 46 mg/dL >39 Not Available [facility] ([facility]) [address] [place], [address], 03/28/2021 08:13:19 03/24/20 21 03/25/2021 LIPID PANEL VLDL cholesterol concha 29 mg/dL 5-40 Not Available [facility] ([facility]) [address] [facility], [place], [address], 03/28/2021 08:13:19 03/24/20 21 03/25/2021 LIPID PANEL LDL chol calc ([facility]) 160 mg/dL 0-99 above high normal Not Available [facility] ([facility]) [address] [facility], [place], [address], 03/28/2021 08:13:19 03/24/20 21 03/25/2021 LIPID PANEL comment: INFORMATION CLERK Not Available [facility] ([facility]) [address] [facility], [place], [address], 03/28/2021 08:13:19 03/24/20 21 03/27/2021 THYRO ID STIMU LATIN G HORMO NE TSH-icma 1.6 uu/mL Refer ence Range : Non-P regna nt Adult 0.450 -4.50 0 Not Available [facility] [address] [facility], [place], [address], 03/28/2021 08:13:20 03/24/20 21 03/25/2021 PROST ATE-S [...] t be inter prete d as absol upper [place] evide nce of the prese nce or absen ce of cesario shelby se. Not Available [facility] ([facility]) [address] [facility], [place], [address], 03/28/2021 08:13:20 03/24/20 21 03/25/2021 VITAM IN [...] Basilia jacobs [place]: [facility] . 2. Graham pineda [place], Raffaele rasmussen [place], Nicky off-F sumit i FLORES, et al. Evalu ation , treat ment, and preve ntion of vitam in D defic iency : an Endoc rine Socie ty clini concha pract ice guide line. JCEM. 2010; 96(7) :1911 -30. Not Available [facility] ([facility]) [address] [facility], [place], [address], 03/28/2021 08:13:21 11/24/19 22 12/15/2021 SURGI CONCHA PATHO LOGY REPOR T results . ACCES LOGAN: 804-P S-[id number] 16 RESPO NSIBL E PATHO LOGIS T: [...] 11/26 10:44 EDT PKB [facility] [address] [place] [address] Phone : Gross Descr iptio n A. [...] by [place]. 49944 x 3 / / 11/25 17:33 EDT Clini concha Histo ry NA Not Available [facility] (Lab) [address], [place], [address], 12/15/2021 09:40:20 11/26/19 22 11/26/2021 SURGI CONCHA PATHO LOGY REPOR T results . ACCES LOGAN: 804-P S-[id number] 16 RESPO NSIBL E PATHO LOGIS T: [...] 11/26 10:44 EDT PKB Perfo [facility]med at: [facility] [address] [place] [address] Phone : Gross Descr iptio n A. [...] by [place]. 26566 x 3 / / 11/25 17:33 EDT Clini concha Histo ry NA Not Available [facility] (Lab) [address], [place], [address], 11/26/2021 10:44:08 05/20/2005/20/2021 MRI, prost ate, w/wo contr ast No observ ation record ed. [facility] ([facility]) [address] [place] [address], [address], 05/22/2021 08:38:37 Result Notes None recorded. Problems Name Problem SNOMED Code Status Onset Date Resolution Date Notes Provider Name and Address Organization Details Recorded Time Allergic conjunctivitis 360410874 Active Nicolasa napoles [facility]14 [place] 8 13:23:11 Sleep apnea 15856287 Active 2016 Nicolasa napoles [facility]14 [place] 8 13:22:58 Vitamin D deficiency 98231571 Active 2016 Nicolasa napoles [facility]14 [place] 8 13:23:14 Osteoarthritis 811094358 Active 2016 Nicolasa Perdue null, [place] - [facility] [place] 8 13:23:18 Memory impairment 449231963 Active 2016 Nicolasa Perdue null, [place] - [facility] [place] 7 15:52:18 Generalized anxiety disorder 07493598 Active 2017 Nicolasa Perdue null, [place] - [facility] [place] 8 13:45:01 Obesity 424921898 Active 2017 Nicolasa Perdue null, [place] - [facility] [place] 8 08:42:14 Basal cell carcinoma of skin 186181367 Active 2019 BAKARI RAHMAN MD [address], [address], [facility] - [facility] [place] 0 13:54:56 Skin lesion 22604308 Active 2021 BAKARI RAHMAN MD [address],[facility] [address], [place], [address], [facility] - [facility] [place] 2 16:23:50 Persistent insomnia 241085908 Active Nicolasa Perdue null, [place] - [facility] [place] 8 13:23:21 Testicular hypofunction 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 Active Nicolasa Perdue null, [place] - [facility] [place] 8 13:23:19 Gastroesophage al reflux disease 554769690 Active Nicolasa Perdue null, [place] - [address] 8 13:23:08 Hip pain 85022538 Active Nicolasa Perdue null, [place] - [facility] [place] 8 13:23:25 Allergic rhinitis 30956240 Active Nicolasa Perdue null, [place] - [facility] [place] 8 13:23:16 Asthma 066965414 Active Nicolasa Perdue null, [place] - [facility] [place] 8 13:23:05 Pure hypercholester olemia 046495645 Active Nicolasa Perdue null, [place] - [facility] [place] 8 13:23:07 Problem Notes None recorded. Procedures Surgical History Date Name Laterality Status Provider Name and Address Organization Details Recorded Time 11/24/19 22 Blank Procedure Template completed BAKARI RAHMAN MD [address], [place], [address], [address] 11/23/2021 13:54:10 03/18/20 21 Medicare Wellness CPT Code, Subsequent completed Tracy Reagan, [address] 03/18/2021 13:13:01 03/17/20 20 Medicare Wellness CPT Code, Subsequent completed Tracy Reagan, [address] 03/17/2020 10:36:00 11/08/19 20 Telehealth Communication completed Liseth Le, [address] 11/08/2019 08:27:00 04/26/20 19 Removal of Foreign Body completed Raleigh Downey MD [address], [place], [address], [address] 04/26/2019 12:57:03 03/12/20 19 Medicare Wellness CPT Code, Subsequent completed Tracyjerry Reagan, [address] 03/12/2019 10:10:40 03/07/20 18 Medicare Wellness CPT Code, Subsequent completed Sheri Collins, [address] 03/07/2018 13:19:38 02/10/20 17 Medicare Wellness CPT Code, Subsequent completed Scarlett Hanna, [address] 02/09/2017 13:16:21 07/20/19 17 Removal of foreign body - Eye completed Nicolasa Perdue [address] 07/20/2016 11:49:56 07/18/19 12 Colonoscopy completed Sheri Collins [address] 11/22/2016 09:39:16 hernia completed BAKARI RAHMAN MD [address], [place], [address], [address] 09/04/2019 13:51:45 Imaging Results Imaging Date Name Status LastModified by [facility] Details LastModified Time 05/20/2021 MRI, prostate, w/wo contrast completed [facility] ([address], [address], 05/22/2021 08:38:37 Procedure Notes None recorded. Medical Equipment None Reported. Allergies Allergen ID Allergen Name Allergen Category Reaction Reaction Severity Criticality Documentation Date Start Date Code Code System Note Provider Name and Address Organization Details Recorded Time 278611 Product containin g 3-hydroxy -3-methyl glutaryl- coenzyme A reductase inhibitor (product) medicatio n other moderate Not available 01/12/2016 84978 009 SNOMED Palpi tatio ns Quique Stephenson null, [place] - [facility] [place] 6 14:54:04 Medications Name Sig Start Date Stop Date Status Note LastModified by Organization Details LastModified Time levofloxa amaris 750 mg tabs active Not Available Not Available Not Available compounde d medicatio n take 1 tablet every day 06/21 completed Not Available Not Available Not Available alprazola m 0.25 mg tabs 06/29 completed Not Available Not Available Not Available cefadroxi l 500 mg caps 02/09 completed Not Available Not Available Not Available fluzone high-dose pf 8830-7687 .5 ml mehrdad active Not Available Not Available Not Available compounde [...] Available polymyxin b sulfate/t rimethopr im sulfate 16012-2.1 unit/ml-% soln 02/09 completed Not Available Not Available Not Available fluconazo le 200 mg tabs 06/11 completed Not Available Not Available Not Available advair diskus 250-50 mcg/dose aepb 03/28 completed Not Available Not Available Not Available [facility] st sodium 10 mg tabs 11/30 completed Not Available Not Available Not Available albuterol sulfate 1.25 mg/3ml nebu active Not Available Not Available Not Available sulfameth oxazole/t rimethopr im ds 800-160 mg tabs active Not Available Not Available Not Available phen [...] active Not Available Not Available Not Available ventolin hfa 108 (90 base) mcg/actae rs 02/11 completed Not Available Not Available Not Available oxycodone /acetamin ophen 5-325 mg tabs 06/21 completed Not Available Not Available Not Available fluzone high-dose pf 9696-7418 .5 ml mehrdad active Not Available Not [...] active Not Available Not Available Not Available donepezil hcl 5 mg tabs 11/30 completed Not Available Not Available Not Available fluad .5 ml mehrdad 06/11 completed Not Available Not Available Not Available hydrocodo ne/acetam inophen 5-325 mgtabs active Not Available Not Available Not Available fluzone high-dose pf 2429-2668 .5 ml mehrdad 06/03 completed Not Available [...] Not Available Not Available Not Available Flulaval 6395-0983 45 mcg (15 mcg x 3)/0.5 mL intramusc ular suspensio n active Not Available Not Available Not Available Anoro Ellipta 62.5 mcg-25 mcg/actua tion powder for inhalatio n Inhale 1 puff every day by inhalati on route for 90 days. 2015 active Not Available Not Available Not Avai lable Fluvirin 5462-1937 45 mcg (15 mcg x 3)/0.5 mL intramusc ular suspensio n INJECT 0.5 ML INTRAMUS CULARLY DIRECTED . active Not Available Not Available No t Available Fluzone High-Dose 2014- (PF) 180 mcg/0.5 mL intramusc ular syringe active Not Available Not Available Not Available Fluzone High-Dose 5788-7351 (PF) 180 mcg/0.5 mL intramusc ular syringe ADM 0.5ML IM UTD active Not Available Not Available No t Available Fluzone High-Dose 6157-1918 (PF) 180 mcg/0.5 mL intramusc ular syringe [...] Available Not Available Not Available Fluad Quad 2572-7679 (65yr up)(PF) 60 mcg (15 mcg x [...] Updated DateTime 1 163.83 cm 33.9 kg/m2 40394.2 7 g 45 /min 18 /min 98 [degF] 0 174 mm[Hg] 84 mm[Hg] MAURO Byrd [facility]14 [place] 13:22:04 Date Recorded Body height Body mass index (BMI) Body weight Heart rate Respiratory rate Body temperature Systolic blood pressure Diastolic blood pressure Provider Name and Address Organization Details Last Updated DateTime 163.83 cm 33.8 kg/m2 10316.4 7 g 87 /min 18 /min 97.9 [degF] 184 mm[Hg] 96 mm[Hg] MAURO Byrd [facility]14 [place] 14:04:53 Date Recorded Body height Provider Name an d Address Organization Details Last Updated DateTime 10/26/2021 163.83 cm Tima Decker [address] 10/26/2021 15:43:05 Date Recorded Body height Provider Name an d Address Organization Details Last Updated DateTime 11/23/2021 163.83 cm Tima Decker [address] 11/23/2021 13:16:30 Date Recorded Body height Provider Name an d Address Organization Details Last Updated DateTime 03/26/2022 163.83 cm Georgina Fish LPN [address] 03/26/2022 15:27:17 Social History Question Answer Notes LastModified by Organizat ion Details LastModified Time Tobacco Smoking Status Former Smoker Quit 1964 Aury Sandoval CMA [address] 09/04/2019 13:22:36 Do You Have An Advance Directive? No Information not available 02/09/2017 What Is Your Level Of Alcohol Consumption? Occasional [email or web address] Information not available 02/16/2013 How Many Times Per Week Do You Consume Alcohol? 1-2 Times Per Week [email or web address] Information not available 03/18/2021 Are You Blind Or Do You Have Difficulty Seeing? No Information not available 02/09/2017 What Is Your Level Of Caffeine Consumption? None [email or web address] Information not available 03/18/2021 Are You Deaf Or Do You Have Serious Difficulty Hearing? No Information not available 02/09/2017 What Type Of Diet Are You Following? 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 1-5yearssinkevin bond [email or web address] Information not available 03/18/2021 Live Alone Or With Others? With Others [email or web address] Information not available 04/23/2013 Do You Feel Safe At Home? Yes Information not available 02/09/2017 Marital Status eva Informati on not available 02/16/2013 Do You Have A Medical Power Of Contact Lens Polisher? No [email or web address] Information not available 03/18/2021 What Was The Date Of Your Most Recent Tobacco Screening? 11/23/2021 [email or web address] Information not available 11/23/2021 How Many Children Do You Have? 2 Information not available 12/25/2013 What Is Your Current Pack Years? 10packyears [email or web address] Information not available 03/18/2021 Seat Belts Used Routinely Yes Information not available 02/09/2017 Smoke Alarm In Home Yes Information not available 02/09/2017 At What Age Did You Start Smoking Tobacco? 16 Information not available 12/25/2013 How Much Tobacco Do You Smoke? 0.5 PPD [email or web address] Information not available 09/04/2019 General Stress Level Low [email or web address] Information not available 02/16/2013 Do You Use Any Illicit Or Recreational Drugs? No [email or web address] Information not available 03/18/2021 Do You Use Sunscreen Routinely? No Information not available 02/09/2017 Has Tobacco Cessation Counseling Been Provided? No [email or web address] Information not available 03/18/2021 How Many Years Have You Smoked Tobacco? 2 [email or web address] Information not available 09/04/2019 Do You Or Have You Ever Used Any Other Forms Of Tobacco Or Nicotine? No [email or web address] Information not available 03/18/2021 Sex: Unknown Functional Status Question Answer Note LastModified by Organizat ion Details LastModified Time Do you have difficulty walking or climbing stairs? No Information not available 02/09/2017 Do you have difficulty doing errands alone? No Information not available 02/09/2017 Do you have difficulty dressing or bathing? No Information not available 02/09/2017 What is your exercise level? Occasional [email or web address] Information not available 02/16/2013 Mental Status Question Answer Note LastModified by Organization D etails LastModified Time Do you have difficulty concentrating, remembering or making decisions? No Information no t available 02/09/2017 Family History Relationship Description Onset Age of this Age Resolved Age Notes LastModified by Organization Details LastModified Time Brother Alive Not available 07/22/2016 16:28:24 Father Chronic cerebrovascu lar accident 71 Not available 11/2016 16:28:24 Mother Old-age 87 [email or web address] Not available 07/22/2016 16:28:24 Notes:2 children alive and w ell Medical History Condition Response Hepatitis Y Hyperlipidemia Y Asthma Y GERD/Reflux Y Immunizations Vaccine Type Date Status Note Provider Nam e and Address Organization Details Recorded Time Influenza, split virus, trivalent, preservative 4 completed Liseth Le RMA null, [facility]14 [place] 06/11/2019 13:01:11 Influenza, high-dose, trivalent, PF 5 completed Not Available [facility] 08/18/2019 02:11:28 Pneumococcal conjugate PCV 13 5 completed Tracy Reagan RMA null, [place] - [facility] [place] 03/18/2021 13:14:30 zoster live 0 completed Tracy Reagan RMA null, [place] [facility] [place] 03/18/2021 13:14:31 pneumococcal, unspecified formulation 0 completed Tracy Reagan RMA null, [place] [facility] [place] 03/18/2021 13:14:30 Influenza, split virus, trivalent, preservative 3 completed Tracy Reagan RMA null, [place] - [facility] [place] 03/18/2021 13:14:31 tetanus toxoid, unspecified formulation 0 completed Tracy Reagan RMA null, [place] - [facility] [place] 03/18/2021 13:14:30 Influenza, split virus, trivalent, preservative 4 completed Tracy Reagan RMA null, [facility]14 [place] 03/18/2021 13:14:30 pneumococcal, unspecified formulation 0 completed Scarlett Jacques, EXPERIENCED TRUCK DRIVER null, [address] 02/09/2017 13:19:19 tetanus toxoid, unspecified formulation 0 completed Scarlett Jacques, EXPERIENCED TRUCK DRIVER null, [facility]14 [place] 02/09/2017 13:19:19 Influenza, split virus, trivalent, preservative 3 completed Scarlett Jacques, EXPERIENCED TRUCK DRIVER null, [address] 02/09/2017 13:19:19 Influenza, split virus, quadrivalent, preservative 3 completed Not Available [facility] 08/18/2019 02:11:10 Influenza, split virus, trivalent, preservative 4 completed Not Available [facility] 08/18/2019 02:11:10 Influenza, split virus, trivalent, preservative 2 completed Not Available [facility] 08/18/2019 02:11:10 zoster live 0 completed Scarlett Hanna EXPERIENCED TRUCK DRIVER null, [address] 02/09/2017 13:19:19 Past Encounters Encounter ID Performer Location Encounter Start Date Encounter Closed Date Diagnosis/Indication Diagnosis SNOMED-CT Code Diagnosis ICD10 Code Diagnosis Note [id number] [facility] [address] [place] [address] [place] [address] 01/29/2013 15:24:44 01/30/2013 09:26:15 [id number] [facility] [address] [place] [address] 04/23/2013 15:19:32 04/23/2013 16:51:22 Fatigue 57241887 Cough [id number] [id number] [facility] [address] [place] [address] 06/04/2013 10:16:56 06/04/2013 12:45:31 Lipoma of skin 872882857 [id number] [facility] [address] [place] [address] 06/18/2013 15:46:39 06/19/2013 09:56:43 Lipoma of skin 567223891 [id number] William Cueva Cecilio [facility] [address] [place] [address] 11/19/2013 15:54:48 11/19/2013 16:58:21 Asthma 034355871 Acute bronchitis 57361589 Cough 41878657 [id number] [facility] [address] [place] [address] 12/25/2013 13:05:51 12/26/2013 16:36:58 Pure hypercholesterolemia 692334047 Adult heal th examination 904566604 Hip pain 65701302 Sleep apnea 16755410 Allergic rhinitis 71797400 Gastroesop hageal reflux disease 672899609 Body mass index 30+ - obesity 606071782 Screening for malignant neoplasm of rectum 986226102 [id number] MAURO Seth [facility] [address] [place] [place] [address] 04/04/2014 13:07:47 04/04/2014 14:33:36 Allergic rhinitis 18953288 Skin lesion 56808393 [id number] Jacki Mayen MD [facility] [address] [place] [place] [address] 01/07/2015 13:02:06 01/07/2015 17:27:58 Adult health examination 727337985 Asthma 118873158 Sleep apnea 09682938 Memory impairment 394085133 Body mass index 30+ - obesity 913285451 Administra tion of pneumococcal vaccine 38649289 Screening for malignant neoplasm of rectum 019214799 [id number] [facility] [address] [place] [address] 01/28/2015 10:44:03 01/28/2015 11:23:40 Pure hypercholesterolemia 155170821 Medication monitoring 416826408 [id number] [facility] [address] Formerly named [facility] [place] [address] 04/01/2015 10:00:35 04/01/2015 17:36:22 Pure hypercholesterolemia 514055333 Senile hyperkeratosis 305535503 [id number] Jacki Mayen MD [facility] [address] Formerly named [facility] [place] [address] 07/07/2015 13:07:15 07/07/2015 14:00:36 Sleep apnea 17492290 G47.30 Obesity 923531812 E66.9 [id number] Jacki Mayen MD [facility] [address] Formerly named [facility] [place] [address] 08/07/2015 13:29:36 08/07/2015 15:17:15 Upper respiratory infection 48005160 J06.9 Cough 14658532 R05 [id number] [facility] [address] [address] 09/18/2015 14:21:19 09/18/2015 16:17:56 Pain in thumb 488299551 M79.645 Hand pain 40277052 M79.6 42 [id number] Jacki Mayen MD [facility] [address] [address] 10/08/2015 08:56:56 10/08/2015 11:29:36 Asthma 774871107 J45.909 Allergic rhinitis 678478 04 J30.9 Cough 19718565 R05 Allergic conjunctivitis 447850339 H10.13 Acute bronchitis 4243897 2 J20.9 [id number] Jacki Mayen MD [facility] [address] Formerly named [facility] [place] [address] 11/20/2015 14:08:59 11/20/2015 15:42:38 Allergic rhinitis 45402470 J30.9 Allergic conjunctivitis 087927389 H10.13 Asthma 406580362 J45.90 9 [id number] [facility] [address] [place] [place] [address] 12/08/2015 09:00:19 12/08/2015 13:22:40 Tinea sherriuris 146878045 B35.6 [id number] Jacki Mayen MD [facility] [address] [place] [address] [place] [address] 01/12/2016 12:58:53 01/12/2016 16:35:25 Adult health examination 102681555 Z00.01 Z72.89 Z79.899 N42.9 Z12.5 E78.5 E55.9 Fatigue 42000428 R53.83 Poor short -term memory 309043566 R41.3 Acute félix l impairment 125764030 N28.9 Essential hypertension 37797009 I10 Screening for malignant neoplasm of rectum 919917775 Z12.12 Pain in thumb 455928190 M79.645 Hypercholesterolemia 136 42575 E78.0 Sleep apnea 08959886 G47 .30 [id number] Jacki Mayen MD [facility] [address] [place] [place] [address] 02/11/2016 10:45:29 02/11/2016 13:36:44 Essential hypertension 39882607 I10 Hypogonadism 40848599 E2 9.1 [id number] [facility] [address] [place] [address] [place] [address] 03/04/2016 15:27:05 03/04/2016 16:45:58 Tinea todds 818890230 B35.6 Palpitations 67881136 R0 0.2 [id number] [facility] [address] [place] [place] [address] 03/11/2016 10:00:58 03/11/2016 15:30:44 Palpitations 41944361 R00.2 [id number] [facility] [address] [place] [address] [place] [address] 04/14/2016 14:46:03 04/14/2016 16:43:04 Premature atrial contraction 498401541 I49.1 Ventricula r premature beats 64193279 I49.3 Transient cerebral ischemia 971998801 G45.9 [id number] Robert Hernandez MD [facility] [facility] [address] [facility] [address] [place] [address] 05/24/2016 15:03:00 05/24/2016 16:02:33 [id number] Jacki Mayen MD [facility] [address] [place] [address] [place] [address] 06/29/2016 14:05:17 06/29/2016 16:19:26 Acute bronchitis 50529465 J20.9 Asthma 672694812 J45.90 9 Cough 27080871 R05 [id number] Jacki Mayen MD [facility] [address] [place] [address] [place] [address] 07/20/2016 11:13:42 07/20/2016 14:25:53 Foreign body in eye 0669572794 62215 H44.118 [id number] Jacki Mayen MD [facility] [address] [place] [address] [place] [address] 07/22/2016 15:23:30 07/22/2016 16:58:21 [facility] [id number] H00.13 [id number] Jacki Mayen MD [facility] [address] [place] [address] [place] [address] 02/09/2017 12:14:27 02/09/2017 15:00:48 Adult health examination 582080677 Z00.00 Screening for disorder 623574789 Z13.9 Sleep apnea 40661556 G47 .30 Adverse re action to drug 30549050 T88.7XXA On Zocor- feels bad Pain in right foot 93545 32481 03685 M79.671 Vitamin D deficiency 347 57547 E55.9 Osteoarthritis 541427197 M19.90 Poor short -term memory 134004981 R41.3 Impotence 328702941 N52. 9 Screening for malignant neoplasm of colon 643267829 Z12.11 [id number] Jacki Mayen MD [facility] [address] [place] [place] [address] 06/03/2017 10:23:50 06/03/2017 13:16:31 Obesity 377881661 E66.9 Poor short -term memory 896862755 R41.3 [id number] Jacki Mayen MD [facility] [address] [place] [place] [address] 07/06/2017 15:44:58 07/06/2017 16:36:07 Memory impairment 112496336 R41.3 Medication monitoring 39 2311530 Z51.81 Obesity 741928494 E66.9 Impotence 530940960 N52. 9 [id number] Jacki Mayen MD [facility] [address] Formerly named [facility] [place] [address] 10/12/2017 09:57:08 10/12/2017 10:43:43 Essential hypertension 82244403 I10 Candidiasis of skin 4988 3006 B37.2 Generalize d anxiety disorder 21347709 F41.1 Allergic rhinitis 666802 04 J30.9 [id number] Jacki Mayen MD [facility] [address] [place] Formerly named [facility] [place] [address] 12/21/2017 15:14:38 12/21/2017 16:10:50 Difficulty maintaining weight loss 278239492 E66.9 Obesity 613717725 E66.9 [id number] Jacki Mayne MD [facility] [address] [place] [address] [place] [address] 03/07/2018 13:15:21 03/07/2018 15:22:34 Adult health examination 568852691 Z00.00 Screening for disorder 255505514 Z13.89 Obesity 942208267 E66.9 Pure hypercholesterolemia 370475614 E78.00 Gastroesop hageal reflux disease 613174459 K21.9 Vitamin D deficiency 347 85837 E55.9 Asthma 171533491 J45.90 9 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 Generalize d anxiety disorder 53400927 F41.1 Sleep apnea 29201999 G47 .30 Screening for malignant neoplasm of colon 944259553 Z12.11 Z12.12 [id number] Jacki Mayen MD [facility] [address] [place] [address] [place] [address] 05/16/2018 08:17:50 05/16/2018 11:06:26 Obesity 726590393 E66.9 Sleep apnea 88093823 G47 .30 [id number] Jacki Mayen MD [facility] [address] [place] [address] 06/16/2018 10:07:32 06/16/2018 11:19:36 Gout 08041944 M10.9 Memory impairment 348397 006 R41.3 [id number] Jacki Mayen MD [facility] [address] [place] [address] 08/14/2018 09:26:24 08/14/2018 12:32:33 Generalized anxiety disorder 88591021 F41.1 Memory impairment 493763 006 R41.3 Palpitations 13721763 R0 0.2 [id number] Jacki Mayen MD [facility] [address] [place] [place] [address] 09/04/2018 11:02:21 09/04/2018 13:03:57 Allergic rhinitis 92179717 J30.9 Palpitations 88280979 R0 0.2 Memory impairment 707678 006 R41.3 [id number] [facility] [address] [place] [place] [address] 10/13/2018 14:18:19 10/13/2018 16:54:25 Ventricular tachycardia 04020220 I47.2 Palpitations 68631840 R0 0.2 Lesion of skin of face 5264802233 06 L98.9 [id number] Jacki Mayen MD [facility] [address] [place] [place] [address] 11/30/2018 09:28:23 11/30/2018 13:21:54 Nonsustained ventricular tachycardia 396413713 I47.2 Left ventr icular hypertrophy 89172453 I51.7 Memory impairment 388120 006 R41.3 Insomnia 893309276 G47.0 0 Allergic rhinitis 188950 04 J30.9 [id number] Jacki Mayen MD [facility] [address] [place] [place] [address] 12/28/2018 13:20:03 12/28/2018 15:21:08 Candidiasis of skin 54995255 B37.2 Memory impairment 169230 006 R41.3 Wound of skin 195913183 T14.8XXA Degenerati ve joint disease of hand 30181197 M19.289 [id number] Jacki Mayen MD [facility] [address] [place] [address] 03/02/2019 14:32:33 03/02/2019 16:21:35 Impetigo 55318633 L01.00 [id number] Jacki Mayen MD [facility] [address] [place] [place] [address] 03/12/2019 09:36:33 03/12/2019 13:19:23 Adult health examination 778636953 Z00.00 Screening for disorder 377790306 Z13.89 Depression screening 171 829107 Z13.31 Pure hypercholesterolemia 025418888 E78.00 Essential hypertension 86911094 I10 Fatigue 56846634 R53.83 Screening for malignant neoplasm of prostate 950102372 Z12.5 Memory impairment 600582 006 R41.3 Medication monitoring 39 3141141 Z51.81 Generalize d anxiety disorder 18116203 F41.1 Low back pain 369029496 M54.5 Pain in right thumb 1076 070698 458575 M79.644 Dementia 73270134 F03.90 Asthma 891881747 J45.90 9 Screening for malignant neoplasm of colon 054124288 Z12.11 Z12.12 [id number] Jacki Mayen MD [facility] [address] [place] [address] [place] [address] 04/16/2019 08:58:10 04/16/2019 10:23:22 Pain in thumb 166677772 M79.988 [id number] Raleigh Downey MD [facility] [address] [place] [address] 04/26/2019 12:09:46 04/26/2019 13:01:13 Retained foreign body in eye 35586246 H44.709 flushed clear [id number] Jacki Mayen MD [facility] [address] [place] [address] [place] [address] 06/04/2019 13:05:17 06/04/2019 15:30:04 Ingrowing nail 574343597 L60.0 [id number] Jacki Mayen MD [facility] [address] [place] [address] [place] [address] 06/11/2019 12:46:50 06/11/2019 14:29:07 Hip pain 07058694 M25.559 Hand pain 37938001 M79.6 41 M10.9 Fatigue 09078474 R53.83 Nausea 157220150 R11.0 Abdominal pain 18966602 R10.9 Indigestion 804967289 K3 0 Dementia 60177787 F03.90 Anxiety 22092914 F41.9 Muscle weakness 22455295 M62.81 [id number] [facility] [address] [address] [place] [address] 06/21/2019 10:37:40 06/21/2019 13:07:55 Fatigue 57129418 R53.83 Abdominal pain 33395388 R10.9 Muscle weakness 77565725 M62.81 [id number] [facility] [address] [place] [address] 06/29/2019 11:09:30 06/29/2019 14:23:48 Postoperative wound infection 94477505 T81.40XA right hand [id number] [facility] [address] [place] [address] 07/26/2019 12:50:00 07/26/2019 13:52:47 Pain in throat 649179794 R07.0 Pharyngitis 360404233 J0 2.9 Lesion of skin of face 4293255570 06 L98.9 [id number] BAKARI RAHMAN MD [facility] [address] [place] [address] 09/04/2019 12:42:04 09/04/2019 13:39:11 Basal cell carcinoma of skin 700651385 C44.91 [id number] Jacki Mayen MD [facility] [address] [place] [address] 09/11/2019 15:07:19 09/11/2019 16:27:39 Asthma 841180364 J45.909 Poor short -term memory 813773601 R41.3 [id number] Jacki Mayen MD [facility] [address] [place] [address] 11/08/2019 08:14:39 11/08/2019 09:38:58 Acute gastroenteritis 27675179 K52.9 Nausea and vomiting 1693 2000 R11.2 [id number] Jacki Mayen MD [facility] [address] [place] [address] 12/11/2019 14:05:02 12/11/2019 15:39:56 Abdominal pain 87411848 R10.9 Nausea 210276530 R11.0 Muscle weakness 66957187 M62.81 Fatigue 42929188 R53.83 Diarrhea 05740171 R19.7 Gastritis 6657055 K29.70 Dizziness 737760496 R42 [id number] BAKARI RAHMAN MD [facility] [address] [place] [address] 12/14/2019 14:08:04 12/14/2019 14:41:59 Basal cell carcinoma of skin 365518578 C44.91 [id number] Jacki Mayen MD [facility] [address] [place] [address] 01/15/2020 10:37:28 01/15/2020 12:40:42 Gastroesophageal reflux disease 828841189 K21.9 Gastric ulcer 680522328 K25.9 Abdominal pain 92249463 R10.9 [id number] Jacki Mayen MD [facility] [address] [place] [address] 03/10/2020 08:18:12 03/10/2020 13:09:14 Pain in both feet 5309269048 0600075 M79.671 M79.672 Testicular hypofunction 025495125 E29.1 Pure hypercholesterolemia 305932185 E78.00 Vitamin D deficiency 347 88125 E55.9 Fatigue 38686743 R53.83 Pain in left knee 299385 2204 51043 M25.562 [id number] Jacki Mayen MD [facility] [address] [facility] [place] [place] [address] 03/17/2020 13:03:43 03/17/2020 14:59:03 Adult health examination 303858522 Z00.00 Screening for disorder 611533004 Z13.89 Depression screening 171 731136 Z13.31 Gastroesop hageal reflux disease 991305907 K21.9 Generalize d anxiety disorder 04837148 F41.1 Medication monitoring 39 4185270 Z51.81 Asthma 576933369 J45.90 9 Dementia 33151267 F03.90 [id number] Jacki Mayen MD [facility] [address] [facility] [place] [address] 03/27/2020 15:03:52 03/27/2020 15:37:08 Pain in left knee 9845618709 99361 M25.562 [id number] [facility] [address] [address] 04/17/2020 15:50:16 04/17/2020 16:45:04 Prostate specific antigen above reference range 617246781 R97.20 Prostate mass 744762430 R19.09 [id number] Jacki Mayen MD [facility] [address] [place] [address] 07/14/2020 14:09:45 07/14/2020 16:03:43 Onychomycosis 927896494 B35.1 [id number] Jacki Mayen MD [facility] [address] [place] [address] 08/04/2020 11:04:06 08/04/2020 12:41:31 Polyp of colon 06584251 K63.5 Pruritus ani 84540791 L2 9.0 [id number] Jacki Mayen MD [facility] [address] [place] [address] 08/11/2020 15:48:23 08/11/2020 17:03:27 Dark stools 89526951 R19.5 Tinea cruris 898858526 B 35.6 [id number] Jacki Mayen MD [facility] [address] [place] [address] 08/20/2020 13:30:52 08/20/2020 14:43:47 Onychomycosis 049819693 B35.1 Asthma 504733537 J45.90 9 Essential hypertension 33439519 I10 [id number] Jacki Mayen MD [facility] [address] [place] [address] 08/25/2020 13:30:52 08/25/2020 15:10:46 Peptic ulcer 13638996 K27.9 Indigestion 131126341 K3 0 Nausea 451207871 R11.0 [id number] Jacki Mayen MD [facility] [address] [place] [address] 09/23/2020 13:30:49 09/23/2020 15:53:09 Peptic ulcer 85984011 K27.9 Gastroesop hageal reflux disease without esophagitis 417133708 K21.9 [id number] Jacki Mayen MD [facility] [address] [place] [address] 12/24/2020 13:36:18 12/24/2020 16:07:51 Gastroesophageal reflux disease 985407055 K21.9 Tinea corporis 19995466 B35.4 [id number] Jacki Mayen MD [facility] [address] [facility] [place] [address] 03/18/2021 12:49:08 03/18/2021 14:19:00 Adult health examination 253877718 Z00.00 Screening for disorder 344433213 Z13.89 Depression screening 171 621009 Z13.31 Pure hypercholesterolemia 055581730 E78.00 Vitamin D deficiency 347 90696 E55.9 Testicular hypofunction 971671990 E29.1 Fatigue 13501061 R53.83 Gastroesop hageal reflux disease 513254029 K21.9 Memory impairment 007324 006 R41.3 Obesity 631350033 E66.9 Essential hypertension 13033622 I10 [id number] Jacki Mayen MD [facility] [address] [facility] [place] [address] 04/10/2021 13:50:11 04/10/2021 15:03:21 Constipation 36572333 K59.00 [id number] BAKARI RAHMAN MD [facility] [address] [facility] [address] [place] [address] 10/26/2021 15:25:17 10/26/2021 16:02:03 Basal cell carcinoma of skin 842746239 C44.91 Skin lesion 54717465 L98 .9 [id number] BAKARI RAHMAN MD [facility] [address] [facility] [address] [place] [address] 11/23/2021 13:11:11 11/23/2021 13:45:52 Basal cell carcinoma of skin 413355569 C44.91 Skin lesion 77262186 L98 .9 [id number] BAKARI RAHMAN MD [facility] [address] [facility] [address] [place] [address] 03/26/2022 15:17:14 03/26/2022 15:27:56 Basal cell carcinoma of skin 874762689 C44.91 Health Concerns Section Related Observation LastModified by Organization Detai ls LastModified Time None Recorded Concern Status LastModified by Organization Details LastModified Time None Recorded Advance Directives Directive N: Payers Encounter Date Sequence Insurance Name Policy Number Policy Glass Covered Member ID Glass Member ID Guarantor Name 03/18/2021 1 [employer] (MEDICARE REPLACEMENT HMO) Oswaldo Young [id number] Oswaldo Young 04/10/2021 1 [employer] (MEDICARE REPLACEMENT HMO) Oswaldo Young [id number] Oswaldo Young 10/26/2021 1 [employer] (MEDICARE REPLACEMENT HMO) Oswaldo Young [id number] Oswaldo Young 11/23/2021 1 [employer] (MEDICARE REPLACEMENT HMO) Oswaldo Young [id number] Oswaldo Young 03/26/2022 1 [employer] (MEDICARE REPLACEMENT HMO) Oswaldo Young [id number] Oswaldo Young Notes Date Note Type Note [...] failing memory and asthma Jacki Mayen MD [address] [place] [address],[address], [place], [address] [place] [facility] [place] 03/18/2021 14:22:16 04/10/2021 text/html This patient is [...] to his colon Jacki Mayen MD [address] [facility] [address] [facility], [place], [address], [facility] [place] 04/10/2021 21:06:05 10/26/2021 text/html the patient repo [...] not becoming pathologic. BAKARI RAHMAN MD [address] [facility] [address] [address], [place], [address], [facility] [place] 10/26/2021 16:24:17 11/23/2021 text/html The patient came in today for removal of the basal cell carcinoma from his right cheek. He also came for biopsy of the lesion on the medial cheek and the right side of the nose. BAKARI RAHMAN MD [address] [place] [address] [facility], [place], [address], [facility] [place] 11/23/2021 13:58:19 03/26/2022 text/html The patient was concerned about some mild erythema on his right cheek surgical site. No fevers or chills. No drainage. BAKARI RAHMAN MD [address] [place] [address], [place], [address], [facility] [place] 03/26/2022 15:32:20
--- OUTSIDE RECORDS SUMMARY | 2024-11-01 15:27 | XMS_ITS | Data Portability ---
Author Organization [place] - [employer], [employer], [facility] Address [address] [place] [address] Care Team Providers Care Tank Charger Name Role Phone JACKI MAYEN Primary Care Provider Assessment Encounter Date Assessment Date Assessment LastModified by Organization Details LastModified Time 08/06/2021 08/06/2021 Uncle by ptosis of the right first fingernail debridement with Setswana toenail lateral and binocular microscope down to healthy tissue local care including vinegar or what ever drops he got at the pharmacy but Lamisil 250 daily for 90 days. Reassess in 3 months to see if it is better [email or web address] Not available 08/06/2021 12:41:02 08/20/2021 08/20/2021 Basal cell carcinoma the face recommend plastic surgical removal other lesions are benign. Make necessary referral [email or web address] Not available 08/20/2021 14:35:09 03/24/2022 03/24/2022 1. [...] office. Follow up other ansari as needed. [email or web address] Not available 03/24/2022 14:01:11 Plan of Treatment Reminders Order Date Submit Date Provider Last Modified By Organization Details Last Modified Time Details Appointments None recorded. Lab noninvasive colorectal cancer DNA + occult blood screening, QL, stool 2021 [employer] (Cologuard Orders Only), [address], [address], [place], [address], 22:18:26 Referral urologist referral - Please call the patient to schedule an appointment . 2021 022 [id number] Ricki Ellis MD ([facility]), [address] [place] [address] Rd, [address], [place], [address], 14:53:17 plastic surgeon referral - please call pt to schedule appointment 2021 022 [email or web address] 15 Derian Lopez MD, [address] [place] [address], [facility] [address], [address], 16:27:18 Procedures None recorded. Surgeries None recorded. Imaging None recorded. Medication Orders terbinafine HCl 250 mg tablet 2021 022 [id number] [id number], [address], [address], 10:51:20 Patient TargetsNo targets recorded. Patient Instructions Encounter Date Encounter Id Patient Instructions Last Modified By Organization Details Last Modified Time 03/24/2022 [id number] advance directives: care instructions [email or web address] Not available 03/24/2022 14:01:45 learning about living stokes [email or web address] Not available 03/24/2022 14:01:45 do not rescuscitate education [email or web address] Not available 03/24/2022 14:01:45 Advance Directives Education w/sample forms for Living Will/Health Care Surrogate [email or web address] Not available 03/24/2022 14:01:45 Reason for Referral [...] of 10,00 0 indiv idual s at [place] risk for color ectal cance r [...] tomat ic indiv idual s at [facility] risk for color ectal cance r. Follo [...] 112:1 016-1 030. TEST DESCR IPTIO N: [place] site algor ithmi c kylee sis of [...] years or older , who are at [facility] for color ectal cance r (CRC) . Colog uard has been appro fausto for use by the U.[place]. FDA. The perfo rmanc e of Colog uard was estab lishe d in a cross secti onal study of [facility] adult s aged 50-84 . Colog [...] of 0 indiv idual s at [facility] risk for color ectal cance r who [...] at www.c torres [email or web address].c om. Not Available [employer] (Cologuard Orders Only) [address], [place], [address], 09/06/2021 22:18:26 03/17/20 22 03/17/2022 URINA LYSIS , COMPL ETE W/ REFLE X TO CULTU RE urinalysis reflex COMMEN T This speci men will not refle x to a Urine Cultu re. Not Available [facility] [address] [place], [place] [address]y [address], [place], [address], 03/18/2022 06:09:13 03/17/20 22 03/18/2022 URINA LYSIS , COMPL ETE W/ REFLE X TO CULTU RE specific gravity 1.020 1.005- 1.030 normal Not Available [facility] [address] [place], [place] [address]y [address], [place], [address], 03/18/2022 06:09:13 03/17/20 22 03/18/2022 URINA LYSIS , COMPL ETE W/ REFLE X TO CULTU RE pH 5.5 5.0-7. 5 normal Not Available [facility] [address] [place], [place] [address]y [address], [place], [address], 03/18/2022 06:09:13 03/17/20 22 03/18/2022 URINA LYSIS , COMPL ETE W/ REFLE X TO CULTU RE urine-color YELLOW yellow normal Not Available [facility] [address] [place], [place] [address]y [address], [place], [address], 03/18/2022 06:09:13 03/17/20 22 03/18/2022 URINA LYSIS , COMPL ETE W/ REFLE X TO CULTU RE appearance CLEAR clear normal Not Available [facility] [address] [facility] [address], [place], [address], 03/18/2022 06:09:13 03/17/20 22 03/18/2022 URINA LYSIS , COMPL ETE W/ REFLE X TO CULTU RE WBC esterase NEGATI VE negati ve normal Not Available [facility] [address] [place], [place] [address]y [address], [place], [address], 03/18/2022 06:09:13 03/17/20 22 03/18/2022 URINA LYSIS , COMPL ETE W/ REFLE X TO CULTU RE protein TRACE negati ve/tra ce normal Not Available [facility] [address] [facility] [address], [place], [address], 03/18/2022 06:09:13 03/17/20 22 03/18/2022 URINA LYSIS , COMPL ETE W/ REFLE X TO CULTU RE glucose NEGATI VE negati ve normal Not Available [facility] [address] [facility] [address], [place], [address], 03/18/2022 06:09:13 03/17/20 22 03/18/2022 URINA LYSIS , COMPL ETE W/ REFLE X TO CULTU RE ketones NEGATI VE negati ve normal Not Available [facility] [address], [place], [address], 03/18/2022 06:09:13 03/17/20 22 03/18/2022 URINA LYSIS , COMPL ETE W/ REFLE X TO CULTU RE occult blood TRACE negati ve abnormal Not Available [facility] [address] [place], [address], 03/18/2022 06:09:13 03/17/20 22 03/18/2022 URINA LYSIS , COMPL ETE W/ REFLE X TO CULTU RE bilirubin NEGATI VE negati ve normal Not Available [facility] [address] [facility] [address] [place], [address], 03/18/2022 06:09:13 03/17/20 22 03/18/2022 URINA LYSIS , COMPL ETE W/ REFLE X TO CULTU RE urobilinogen ,semi-qn 0.2 mg/dL 0.2-1. 0 normal Not Available [facility] [address] [facility] [address], [place], [address], 03/18/2022 06:09:13 03/17/20 22 03/18/2022 URINA LYSIS , COMPL ETE W/ REFLE X TO CULTU RE nitrite, urine NEGATI VE negati ve normal Not Available [facility] [address], [place], [address], 03/18/2022 06:09:13 03/17/20 22 03/18/2022 URINA LYSIS , COMPL ETE W/ REFLE X TO CULTU RE microscopic examination SEE BELOW: normal Micro scopi c was indic ated and was perfo rmed. Not Available [facility] [address] [facility] [address], [place], [address], 03/18/2022 06:09:13 03/17/20 22 03/18/2022 URINA LYSIS , COMPL ETE W/ REFLE X TO CULTU RE WBC 0-5 /hpf 0 - 5 normal Not Available [facility] [address] [place], [address], 03/18/2022 06:09:13 03/17/20 22 03/18/2022 URINA LYSIS , COMPL ETE W/ REFLE X TO CULTU RE RBC 3-10 /hpf 0 - 2 abnormal Not Available [facility] [address] [facility] [address], [place], [address], 03/18/2022 06:09:13 03/17/20 22 03/18/2022 URINA LYSIS , COMPL ETE W/ REFLE X TO CULTU RE epithelial cells (non renal) NONE SEEN /hpf 0 - 10 normal Not Available [facility] [address] [facility] [address], [place], [address], 03/18/2022 06:09:13 03/17/20 22 03/18/2022 URINA LYSIS , COMPL ETE W/ REFLE X TO CULTU RE casts NONE SEEN /lpf none seen normal Not Available [facility] [address], [place], [address], 03/18/2022 06:09:13 03/17/20 22 03/18/2022 URINA LYSIS , COMPL ETE W/ REFLE X TO CULTU RE bacteria NONE SEEN none seen/f ew normal Not Available [facility] [address] [facility] [address], [place], [address], 03/18/2022 06:09:13 03/17/20 22 03/18/2022 CBC W/ AUTOD IFF, COMPL ETE BLOOD COUNT WBC 10.5 x10e3 /uL 3.4-10 .8 normal Not Available [facility] [address] [place], [place] [address]y [address], [place], [address], 03/18/2022 08:11:26 03/17/20 22 03/18/2022 CBC W/ AUTOD IFF, COMPL ETE BLOOD COUNT RBC 4.92 x10e6 /uL 4.14-5 .80 normal Not Available [facility] [address] [place], [place] [address]y [address], [place], [address], 03/18/2022 08:11:26 03/17/20 22 03/18/2022 CBC W/ AUTOD IFF, COMPL ETE BLOOD COUNT hemoglobin 15.2 g/dL 13.0-1 7.7 normal Not Available [facility] [address] [place], [address], 03/18/2022 08:11:26 03/17/20 22 03/18/2022 CBC W/ AUTOD IFF, COMPL ETE BLOOD COUNT hematocrit 46.2 % 37.5-5 1.0 normal Not Available [facility] [address] [place], [place] [address]y [address], [place], [address], 03/18/2022 08:11:26 03/17/20 22 03/18/2022 CBC W/ AUTOD IFF, COMPL ETE BLOOD COUNT MCV 94 fL 79-97 normal Not Available [facility], [place], [address], 03/18/2022 08:11:26 03/17/20 22 03/18/2022 CBC W/ AUTOD IFF, COMPL ETE BLOOD COUNT MCH 30.9 pg 26.6-3 3.0 normal Not Available [facility] [address], [place], [address], 03/18/2022 08:11:26 03/17/20 22 03/18/2022 CBC W/ AUTOD IFF, COMPL ETE BLOOD COUNT MCHC 32.9 g/dL 31.5-3 5.7 normal Not Available [facility], [place], [address], 03/18/2022 08:11:26 03/17/20 22 03/18/2022 CBC W/ AUTOD IFF, COMPL ETE BLOOD COUNT RDW 12.0 % 11.6-1 5.4 normal Not Available [facility] [address] [place], [address], 03/18/2022 08:11:26 03/17/20 22 03/18/2022 CBC W/ AUTOD IFF, COMPL ETE BLOOD COUNT platelets 292 x10e3 /uL 150-45 0 normal Not Available [facility], [place], [address], 03/18/2022 08:11:26 03/17/20 22 03/18/2022 CBC W/ AUTOD IFF, COMPL ETE BLOOD COUNT neutrophils 74 % not estab. normal Not Available [facility], [place], [address], 03/18/2022 08:11:26 03/17/20 22 03/18/2022 CBC W/ AUTOD IFF, COMPL ETE BLOOD COUNT lymphs 18 % not estab. normal Not Available [facility] [address] [facility] [address], [place], [address], 03/18/2022 08:11:26 03/17/20 22 03/18/2022 CBC W/ AUTOD IFF, COMPL ETE BLOOD COUNT monocytes 6 % not estab. normal Not Available [facility] [address] [facility] [address], [place], [address], 03/18/2022 08:11:26 03/17/20 22 03/18/2022 CBC W/ AUTOD IFF, COMPL ETE BLOOD COUNT eos 1 % not estab. normal Not Available [facility] [address] [facility] [address], [place], [address], 03/18/2022 08:11:26 03/17/20 22 03/18/2022 CBC W/ AUTOD IFF, COMPL ETE BLOOD COUNT basos 1 % not estab. normal Not Available [facility] [address] [facility] [address], [place], [address], 03/18/2022 08:11:26 03/17/20 22 03/18/2022 CBC W/ AUTOD IFF, COMPL ETE BLOOD COUNT neutrophils (absolute) 7.7 x10e3 /uL 1.4-7. 0 high Not Available [facility] [address] [facility] [address], [place], [address], 03/18/2022 08:11:26 03/17/20 22 03/18/2022 CBC W/ AUTOD IFF, COMPL ETE BLOOD COUNT lymphs (absolute) 1.9 x10e3 /uL 0.7-3. 1 normal Not Available [facility] [address] [facility] [address], [place], [address], 03/18/2022 08:11:26 03/17/20 22 03/18/2022 CBC W/ AUTOD IFF, COMPL ETE BLOOD COUNT monocytes(ab solute) 0.7 x10e3 /uL 0.1-0. 9 normal Not Available [facility] [address] [place] [address] [address], [place], [address], 03/18/2022 08:11:26 03/17/20 22 03/18/2022 CBC W/ AUTOD IFF, COMPL ETE BLOOD COUNT eos (absolute) 0.2 x10e3 /uL 0.0-0. 4 normal Not Available [facility] [address] [place] [address] [address], [place], [address], 03/18/2022 08:11:26 03/17/20 22 03/18/2022 CBC W/ AUTOD IFF, COMPL ETE BLOOD COUNT baso (absolute) 0.1 x10e3 /uL 0.0-0. 2 normal Not Available [facility] [address] [place] [address] [address], [place], [address], 03/18/2022 08:11:26 03/17/20 22 03/18/2022 CBC W/ AUTOD IFF, COMPL ETE BLOOD COUNT immature granulocytes 0 % not estab. normal Not Available [facility] [address] [place] [address] [address], [place], [address], 03/18/2022 08:11:26 03/17/20 22 03/18/2022 CBC W/ AUTOD IFF, COMPL ETE BLOOD COUNT immature grans (abs) 0.0 x10e3 /uL 0.0-0. 1 normal Not Available [facility] [address] [place] [address] [address], [place], [address], 03/18/2022 08:11:26 03/17/20 22 03/18/2022 CK creatine kinase,total 225 U/L 41-331 normal Not Available [facility] [address] [facility] [address], [place], [address], 03/18/2022 08:11:27 03/17/20 22 03/18/2022 CMP, COMPR EHENS HERMELINDO METAB OLIC PANEL glucose 103 mg/dL 65-99 high Not Available [facility] [address] [facility] [address], [place], [address], 03/18/2022 08:11:28 03/17/20 22 03/18/2022 CMP, COMPR EHENS HERMELINDO METAB OLIC PANEL BUN 15 mg/dL 8-27 normal Not Available [facility] [address] [facility] [address], [place], [address], 03/18/2022 08:11:28 03/17/20 22 03/18/2022 CMP, COMPR EHENS HERMELINDO METAB OLIC PANEL creatinine 1.12 mg/dL 0.76-1 .27 normal Not Available [facility] [address] [facility] [address], [place], [address], 03/18/2022 08:11:28 03/17/20 22 03/18/2022 CMP, COMPR EHENS HERMELINDO METAB OLIC PANEL eGFR 69 mL/mi n/1.7 3 >59 normal Not Available [facility] [address] [facility] [address], [place], [address], 03/18/2022 08:11:28 03/17/20 22 03/18/2022 CMP, COMPR EHENS HERMELINDO METAB OLIC PANEL BUN/creatini ne ratio 13 10-24 normal Not Available [facility] [address] [facility] [address], [place], [address], 03/18/2022 08:11:28 03/17/20 22 03/18/2022 CMP, COMPR EHENS HERMELINDO METAB OLIC PANEL sodium 140 mmol/ L 134-14 4 normal Not Available [facility] [address] [facility] [address], [place], [address], 03/18/2022 08:11:28 03/17/20 22 03/18/2022 CMP, COMPR EHENS HERMELINDO METAB OLIC PANEL potassium 4.3 mmol/ L 3.5-5. 2 normal Not Available [facility] [address] [facility] [address], [place], [address], 03/18/2022 08:11:28 03/17/2003/18/2022 CMP, COMPR EHENS HERMELINDO METAB OLIC PANEL chloride 100 mmol/ L 96-106 normal Not Available [facility] [address] [facility] [address], [place], [address], 03/18/2022 08:11:28 03/17/20 22 03/18/2022 CMP, COMPR EHENS HERMELINDO METAB OLIC PANEL carbon dioxide, total 26 mmol/ L 20-29 normal Not Available [facility] [address] [facility] [address], [place], [address], 03/18/2022 08:11:28 03/17/20 22 03/18/2022 CMP, COMPR EHENS HERMELINDO METAB OLIC PANEL calcium 9.9 mg/dL 8.6-10 .2 normal Not Available [facility] [address] [facility] [address], [place], [address], 03/18/2022 08:11:28 03/17/2003/18/2022 CMP, COMPR EHENS HERMELINDO METAB OLIC PANEL protein, total 7.2 g/dL 6.0-8. 5 normal Not Available [facility] [address] [facility] [address], [place], [address], 03/18/2022 08:11:28 03/17/20 22 03/18/2022 CMP, COMPR EHENS HERMELINDO METAB OLIC PANEL albumin 5.0 g/dL 3.7-4. 7 high Not Available [facility] [address] [facility] [address], [place], [address], 03/18/2022 08:11:28 03/17/20 22 03/18/2022 CMP, COMPR EHENS HERMELINDO METAB OLIC PANEL globulin, total 2.2 g/dL 1.5-4. 5 normal Not Available [facility] [address], [place], [address], 03/18/2022 08:11:28 03/17/2003/18/2022 CMP, COMPR EHENS HERMELINDO METAB OLIC PANEL A/G ratio 2.3 1.2-2. 2 high Not Available [facility] [address], [place], [address], 03/18/2022 08:11:28 03/17/20 22 03/18/2022 CMP, COMPR EHENS HERMELINDO METAB OLIC PANEL bilirubin, total 0.6 mg/dL 0.0-1. 2 normal Not Available [facility] [address], [place], [address], 03/18/2022 08:11:28 03/17/20 22 03/18/2022 CMP, COMPR EHENS HERMELINDO METAB OLIC PANEL alkaline phosphatase 139 IU/L 44-121 high Not Available [facility] [address] [facility] [address], [place], [address], 03/18/2022 08:11:28 03/17/2003/18/2022 CMP, COMPR EHENS HERMELINDO METAB OLIC PANEL AST (SGOT) 24 IU/L 0-40 normal Not Available [facility] [address], [place], [address], 03/18/2022 08:11:28 03/17/20 22 03/18/2022 CMP, COMPR EHENS HERMELINDO METAB OLIC PANEL ALT (SGPT) 29 IU/L 0-44 normal Not Available [facility] [address] [facility] [address], [place], [address], 03/18/2022 08:11:28 03/17/20 22 03/18/2022 LIPID PANEL REF DLDL cholesterol, total 222 mg/dL 100-19 9 high Not Available [facility] [address] [facility] [address], [place], [address], 03/18/2022 08:11:29 03/17/20 22 03/18/2022 LIPID PANEL REF DLDL triglyceride s 113 mg/dL 0-149 normal Not Available [facility] [address] [facility] [address] [place], [address], 03/18/2022 08:11:29 03/17/20 22 03/18/2022 LIPID PANEL REF DLDL HDL cholesterol 44 mg/dL >39 normal Not Available [facility] [address] [facility] [address] [place], [address], 03/18/2022 08:11:29 03/17/20 22 03/18/2022 LIPID PANEL REF DLDL LDL chol calc ([facility]) 158 mg/dL 0-99 high Not Available [facility] [address] [facility] [address], [place], [address], 03/18/2022 08:11:29 03/17/20 22 03/18/2022 LIPID PANEL REF DLDL T. chol/HDL ratio 5.0 ratio 0.0-5. 0 normal T. Chol/ HDL Ratio Men Women 1/2 Avg.R isk 3.4 3.3 Avg.R isk 5.0 4.4 2X Avg.R isk 9.6 7.1 3X Avg.R isk 23.4 11.0 Not Available [facility] [address] [facility] [address] [place], [address], 03/18/2022 08:11:29 03/17/20 22 03/18/2022 LIPID PANEL REF DLDL LDL/HDL ratio 3.6 ratio 0.0-3. 6 normal LDL/H DL Ratio Men Women 1/2 Avg.R isk 1.0 1.5 Avg.R isk 3.6 3.2 2X Avg.R isk 6.2 5.0 3X Avg.R isk 8.0 6.1 Not Available [facility] [address] [facility] [address] [place], [address], 03/18/2022 08:11:29 03/17/20 22 03/18/2022 LIPID PANEL REF DLDL LDL chol. (direct) 152 mg/dL 0-99 high Not Available [facility] [address] [facility] [address] [place], [address], 03/18/2022 08:11:29 03/17/20 22 03/18/2022 PSA DIAGN [...] t be inter prete d as absol te-moak evide nce of the prese nce or absen ce of nidia oscar disea se. Not Available [facility] [address] [facility] [address] [place], [address], 03/18/2022 08:11:30 03/17/20 22 03/18/2022 VITAM IN [...] and D. Basilia jacobs [place]: The [facility] . 2. Graham pineda MF, Raffaele rasmussen [place], Nicky off-F sumit i FLORES, et al. Evalu ation , treat ment, and preve ntion of vitam in D defic iency : an Endoc rine Socie ty clini concha pract ice guide line. JCEM. 2010; 96(7) :1911 -30. Not Available [facility] [address] [place], [address], 03/18/2022 08:11:31 03/17/20 22 03/17/2022 VENIP UNCTU RE results Compl ete Not Available [facility] [address], [place], [address], 03/17/2022 09:15:24 03/19/20 22 03/20/2022 PSA (FREE [...] t be inter prete d as absol te-moak evide nce of the prese nce or absen ce of cesario shelby se. Not Available [facility] [address], [place], [address], 03/20/2022 08:11:48 03/19/20 22 03/20/2022 PSA (FREE AND TOTAL ) PSA, free 0.76 NG/mL n/a normal Willam ECLIA metho dolog y. Not Available [facility] [address], [place], [address], 03/20/2022 08:11:48 03/19/20 22 03/20/2022 PSA (FREE [...] other popul ation of men. Not Available [facility] [address], [place], [address], 03/20/2022 08:11:48 03/19/20 22 03/20/2022 TESTO STERO NE testosterone 238 NG/dL 264-91 6 low Adult male refer ence inter keaton is based on a popul ation of healt hy nonob aron males (BMI <30) betwe en 19 and 39 years old. Velia sanderson et.al . JCEM 2017, 102;1 161-1 173. PMID: 36547 103. Not Available [facility] [address], [place], [address], 03/20/2022 08:11:49 03/19/20 22 03/19/2022 VENIP UNCTU RE results Compl ete Not Available [facility] [address], [place], [address], 03/19/2022 09:55:12 Result Notes None recorded. 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 Not Available [facility] 2 22:12:54 Persistent insomnia 570819506 Active Not Available [facility] 2 22:12:55 Asthma 220682137 Active Not Available [facility] 2 22:12:54 Generalized anxiety disorder 27884165 Active 2017 Not Available [facility] 2 22:12:54 Gastroesophag eal reflux disease 343470422 Active Not Available [facility] 2 22:12:55 Basal cell carcinoma of skin 383502322 Active 2019 Not Available [facility] 2 22:12:55 Pure hypercholeste rolemia 900463915 Active Not Available [facility] 2 22:12:54 Vitamin D deficiency 68115200 Active 2016 Not Available [facility] 22:12:54 Memory impairment 390541532 Active 2016 Not Available [facility] 2 22:12:55 Osteoarthriti s 866065145 Active 2016 Not Available [facility] 2 22:12:54 Obesity 276184141 Active 2017 Not Available [facility] 2 22:12:54 Allergic conjunctiviti s 598960182 Active Not Available [facility] 2 22:12:54 Hip pain 73558961 Active Not Available [facility] 2 22:12:55 Allergic rhinitis 50923278 Active Not Available [facility] 2 22:12:55 Sleep apnea 46891920 Active 2016 Not Available [facility] 2 22:12:55 Problem Notes None recorded. Procedures Surgical History Date Name Laterality Status Provider Name and Address Organization Details Recorded Time 03/24/20 Quality Functional Assessment completed [facility] [place] [facility] 03/24/2022 11:18:07 03/24/20 22 Quality Medication Reviewed and Updated [place] [facility] 11:18:07 03/24/20 22 Quality BMI with follow up [place] [facility] [place]/24/2022 11:18:07 03/24/20 22 Quality Advanced Care Planning [place] [facility] [place]/24/2022 11:18:07 03/24/20 22 Quality Incontinence Screening [place] [facility] 03/24/2022 11:18:07 03/24/20 22 Medicare AWV-[place]ening Schedule [place] [facility] [place]/24/2022 11:18:07 03/24/20 22 Counseling: Advanced care planning completed MAURO Byrd [facility], [facility] 03/24/2022 13:55:20 03/24/20 22 Quality Fall Risk Assessment completed [facility] [place] [facility] 03/24/2022 11:18:07 08/06/19 22 Nail Debridement completed Maeve Giles [facility], [facility] 08/06/2021 16:05:06 03/15/20 18 Feces-based colorectal cancer DNA screening [facility] 08/06/2021 09:59:56 07/18/19 colonoscopy completed Tracy Reagan [facility] 08/06/2021 09:58:40 [facility] hernia [facility] 09:58:31 Imaging Results None recorded. Procedure Notes None recorded. Medical Equipment None Reported. Allergies Allergen ID Allergen Name Allergen Category Reaction Reaction Severity Criticality Documentation Date Start Date Code Code System Note Provider Name and Address Organization Details Recorded Time 302661 Product containin g 3-hydroxy -3-methyl glutaryl- coenzyme A reductase inhibitor (product) medicatio n other moderate Not available 07/18/20212014 41540 009 SNOMED Palpi tatio ns Tracyjerry Reagan [facility], [facility] 12:32:35 Medications Name Sig Start Date Stop [...] Available Not Available Not Available Fluzone High-Dose 1149-7968 (PF) 180 mcg/0.5 mL intramusc ular syringe ADM 0.5ML IM UTD active Not Available Not Available No t Available Fluzone High-Dose 3719-9459 (PF) 180 mcg/0.5 mL intramusc ular syringe [...] Available Not Available Not Available Fluad Quad 2137-7731 (65yr up)(PF) 60 mcg (15 mcg x [...] cm 87 /min 18 /min 97.9 [degF] 29001.4 7 g 184 mm[Hg] 96 mm[Hg] Not Available [facility] 22:11:14 Date Recorded Body height [...] 0 18 /min 98.1 [degF] 34.5 kg/m2 94413.5 9 g 183 mm[Hg] 96 mm[Hg] 177 mm[Hg] 96 mm[Hg] 135 mm[Hg] 84 mm[Hg] MAURO Byrd [place] - [facility] Physician [facility], [facility] 2 13:48:29 Date Recorded Body height Heart [...] 0 18 /min 98.2 [degF] 34.5 kg/m2 22233.5 9 g 172 mm[Hg] 99 mm[Hg] 176 mm[Hg] 81 mm[Hg] Jamaica Funk CMA [facility], [facility] 2 14:05:01 Date Recorded Body height Heart rate Pain severity - 0-10 verbal numeric rating [Score] - Reported Respiratory rate Body temperature Body mass index (BMI) Body weight Systolic blood pressure Diastolic blood pressure Systolic blood pressure Diastolic blood pressure Provider Name and Address Organization Details Last Updated DateTime 2 163.83 cm 89 /min 0 18 /min 98.1 [degF] 35 kg/m2 56048.0 2 g 181 mm[Hg] 97 mm[Hg] 171 mm[Hg] 98 mm[Hg] MAURO Byrd [facility], [facility] 2 13:32:03 Date Recorded Body height Heart rate Pain severity - 0-10 verbal numeric rating [Score] - Reported Respiratory rate Body temperature Body mass index (BMI) Body weight Systolic blood pressure Diastolic blood pressure Systolic blood pressure Diastolic blood pressure Provider Name and Address Organization Details Last Updated DateTime 2 163.83 cm 80 /min 0 18 /min 98.5 [degF] 34 kg/m2 89041.4 7 g 183 mm[Hg] 93 mm[Hg] 139 mm[Hg] 85 mm[Hg] Coni Mock [facility], [facility] 2 13:10:43 Social History Question Answer Notes LastModified by Organizat ion Details LastModified Time Tobacco Smoking Status Former Smoker MAURO Byrd [facility], [facility] 08/06/2021 09:58:08 Do You Have An Advance Directive? No [email or web address] Information not available 08/06/2021 What Is Your Level Of Alcohol Consumption? Occasional Information not available 08/06/2021 Are You Currently Employed? 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 16+yearsdiana bond [email or web address] Information not available 08/06/2021 Do You Have A Medical Power Of Internal Sales? No Information not available 08/06/2021 What Was The Date Of Your Most Recent Tobacco Screening? 08/06/2021 [email or web address] Information not available 08/06/2021 What Is Your Current Pack Years? 10packyears [email or web address] Information not available 08/06/2021 What Is Your Relationship Status? [email or web address] Information not available 08/06/2021 Do You Use Any Illicit Or Recreational Drugs? No [email or web address] Information not available 08/06/2021 Has Tobacco Cessation Counseling Been Provided? No Information not available 08/06/2021 Do You Or Have You Ever Used Any Other Forms Of Tobacco Or Nicotine? No [email or web address] Information not available 08/06/2021 Sex: Unknown Functional Status None recorded. Mental Status None recorded. Family History Relationship Description Onset Age of this Age Resolved Age Notes LastModified by Organization Details LastModified Time Father Cerebrovascu lar accident [email or web address] Not available 09:56:49 Mother Natural [email or web address] Not available 2021 09:57:03 Notes:1 brother, no problems . 2 children alive and well Medical History Condition Response Other Y Sleep disorder/Insomnia Y High Cholesterol Y Hepatitis Y GERD/Ulcer Y Asthma Y Allergies (other than meds) Y Immunizations Vaccine Type Date Status Note Provider Nam e and Address Organization Details Recorded Time Influenza, high-dose, quadrivalent, PF 2 completed Jacki Mayen MD [address] [facility] [address], [place], [address], [facility] - [facility], [facility] 03/24/2022 16:33:59 Influenza, high-dose, trivalent, PF 5 completed Coni Mock [facility] [place] - [facility], [facility] 03/24/2022 11:18:31 Pneumococcal conjugate PCV 13 5 completed Coni Stuski null, [facility], [facility] 03/24/2022 11:18:31 Influenza, split virus, trivalent, preservative 4 completed Coni Stuski null, [facility], [facility] 03/24/2022 11:18:31 Influenza, split virus, quadrivalent, preservative 3 completed Coni Dulski null, [facility], [facility] 03/24/2022 13:11:35 Influenza, split virus, trivalent, preservative 2 completed Coni Stuski null, [facility], [facility] 03/24/2022 11:18:31 Influenza, split virus, trivalent, preservative 4 completed Coni Dulski null, [facility], [facility] 03/24/2022 11:18:31 Influenza, split virus, trivalent, preservative 3 completed Coni Stuski null, [facility], [facility] 03/24/2022 11:18:31 zoster live 0 completed Coni Dulski null, [facility], [facility] 03/24/2022 11:18:31 tetanus toxoid, unspecified formulation 0 completed Coni Dulski null, [facility], [facility] 03/24/2022 11:18:31 pneumococcal, unspecified formulation 0 completed Coni Dulski null, [facility], [facility] 03/24/2022 11:18:31 Influenza, adjuvanted, trivalent, PF 8 completed Coni Dulski null, [facility], [facility] 03/24/2022 11:18:31 Influenza, split virus, quadrivalent, PF 0 completed Coni Stuski null, [facility], [facility] 03/24/2022 11:18:31 tetanus toxoid, unspecified formulation 0 completed Coni Dulski null, [facility], [facility] 03/24/2022 11:18:31 Influenza, high-dose, trivalent, PF 6 completed Coni Dulski null, [facility], [facility] 03/24/2022 11:18:31 Influenza, high-dose, quadrivalent, PF 1 completed Coni Dulski null, [facility], [facility] 03/24/2022 11:18:31 Influenza, split virus, trivalent, preservative 3 completed Coni Dulski null, [facility], [facility] 03/24/2022 11:18:31 COVID-19, mRNA, LNP-S, PF, 100 mcg/0.5mL dose or 50 mcg/0.25mL dose 1 completed Coni Dulski null, [facility], [facility] 03/24/2022 11:18:31 Influenza, split virus, trivalent, PF 0 completed Coni Dulski null, [facility], [facility] 03/24/2022 11:18:31 pneumococcal, unspecified formulation 0 completed Coni Dulski null, [facility], [facility] 03/24/2022 11:18:31 Influenza, high-dose, trivalent, PF 7 completed Coni Dulski null, [facility], [facility] 03/24/2022 11:18:31 Influenza, split virus, quadrivalent, PF 0 completed Coni Dulski null, [facility], [facility] 03/24/2022 11:18:31 COVID-19, mRNA, LNP-S, PF, 100 mcg/0.5mL dose or 50 mcg/0.25mL dose 1 completed Coni Dulski null, [facility], [facility] 03/24/2022 11:18:31 COVID-19, mRNA, LNP-S, PF, 100 mcg/0.5mL dose or 50 mcg/0.25mL dose 1 completed Coni napoles, [facility], [facility] 03/24/2022 11:18:31 Influenza, adjuvanted, trivalent, PF 9 completed Coni napoles, [facility], [facility] 03/24/2022 11:18:31 COVID-19, mRNA, LNP-S, PF, 100 mcg/0.5mL dose or 50 mcg/0.25mL dose 2 completed Coni napoles, [facility], [facility] 03/24/2022 11:18:31 Past Encounters Encounter ID Performer Location Encounter Start Date Encounter Closed Date Diagnosis/Indication Diagnosis SNOMED-CT Code Diagnosis ICD10 Code Diagnosis Note [id number] [facility] [place] [address] [place] [address] [place] [address] 01/29/2013 00:00:00 02/16/2013 23:08:01 [id number] [facility] [place] [address] [place] [address] [place] [address] 04/23/2013 00:00:00 04/23/2013 20:09:08 [id number] [facility] [place] [address] [place] [address] [place] [address] 06/04/2013 00:00:00 06/04/2013 19:55:35 [id number] [facility] [place] [address] [place] [address] [place] [address] 06/18/2013 00:00:00 06/19/2013 22:49:49 [id number] [facility] [place] [address] [place] [address] [place] [address] 11/19/2013 00:00:00 11/19/2013 21:27:16 [id number] [facility] [place] [address] [place] [address] [place] [address] 12/25/2013 00:00:00 12/26/2013 21:41:49 [id number] [facility] [place] [address] [place] [address] [place] [address] 04/04/2014 00:00:00 04/04/2014 19:06:34 [id number] [facility] [place] [address] [place] [address] [place] [address] 01/07/2015 00:00:00 01/07/2015 18:27:58 [id number] [facility] [place] [address] [place] [address] [place] [address] 01/28/2015 00:00:00 01/28/2015 21:01:46 [id number] [facility] [place] [address] [place] [address] [place] [address] 04/01/2015 00:00:00 04/01/2015 18:52:17 [id number] [facility] [place] [address] [place] [address] [place] [address] 07/07/2015 00:00:00 07/07/2015 21:44:17 [id number] [facility] [place] [address] [place] [address] [place] [address] 08/07/2015 00:00:00 08/07/2015 21:17:51 [id number] [facility] [place] [address] [place] [address] [place] [address] 09/18/2015 00:00:00 09/18/2015 20:13:45 [id number] [facility] [place] [address] [place] [address] [place] [address] 10/08/2015 00:00:00 10/08/2015 19:09:09 [id number] [facility] [place] [address] [place] [address] [place] [address] 11/20/2015 00:00:00 11/20/2015 21:46:21 [id number] [facility] [place] [address] [place] [address] [place] [address] 12/08/2015 00:00:00 12/08/2015 18:20:53 [id number] [facility] [place] [address] [place] [address] [place] [address] 01/12/2016 00:00:00 01/12/2016 22:02:19 [id number] [facility] [place] [address] [place] [address] [place] [address] 02/11/2016 00:00:00 02/11/2016 20:10:25 [id number] [facility] [place] [address] [place] [address] [place] [address] 03/04/2016 00:00:00 03/04/2016 23:18:13 [id number] [facility] [place] [address] [place] [address] [place] [address] 03/11/2016 00:00:00 03/11/2016 17:49:47 [id number] [facility] [place] [address] [place] [address] [place] [address] 04/14/2016 00:00:00 04/14/2016 21:54:59 [id number] _ATHENA_M IGRATION_ DEFAULT_2 2_1 , 05/24/2016 00:00:00 05/25/2016 08:45:46 [id number] [facility] [place] [address] [place] [address] [place] [address] 06/29/2016 00:00:00 06/29/2016 19:47:09 [id number] [facility] [place] [address] [place] [address] [place] [address] 07/20/2016 00:00:00 07/20/2016 21:34:43 [id number] [facility] [place] [address] [place] [address] [place] [address] 07/22/2016 00:00:00 07/22/2016 20:16:36 [id number] [facility] [place] [address] [place] [address] [place] [address] 02/09/2017 00:00:00 02/09/2017 18:37:59 [id number] [facility] [place] [address] [place] [address] [place] [address] 06/03/2017 00:00:00 06/03/2017 16:36:35 [id number] [facility] [place] [address] [place] [address] [place] [address] 07/06/2017 00:00:00 07/06/2017 17:48:10 [id number] [facility] [place] [address] [place] [address] [place] [address] 10/12/2017 00:00:00 10/13/2017 08:49:40 [id number] [facility] [place] [address] [place] [address] [place] [address] 12/21/2017 00:00:00 12/21/2017 20:00:20 [id number] [facility] [place] [address] [place] [address] [place] [address] 03/07/2018 00:00:00 03/07/2018 16:46:30 [id number] [facility] [place] [address] [place] [address] [place] [address] 05/16/2018 00:00:00 05/16/2018 14:02:35 [id number] [facility] [place] [address] [place] [address] [place] [address] 06/16/2018 00:00:00 06/16/2018 12:12:36 [id number] [facility] [place] [address] [place] [address] [place] [address] 08/14/2018 00:00:00 08/14/2018 18:44:08 [id number] [facility] [place] [address] [place] [address] [place] [address] 09/04/2018 00:00:00 09/04/2018 16:20:16 [id number] [facility] [place] [address] [place] [address] [place] [address] 10/13/2018 00:00:00 10/13/2018 19:44:33 [id number] [facility] [place] [address] [place] [address] [place] [address] 11/30/2018 00:00:00 11/30/2018 19:06:17 [id number] [facility] [place] [address] [place] [address] [place] [address] 12/28/2018 00:00:00 12/28/2018 20:37:18 [id number] [facility] [place] [address] [place] [address] [place] [address] 03/02/2019 00:00:00 03/02/2019 17:55:28 [id number] [facility] [place] [address] [place] [address] [place] [address] 03/12/2019 00:00:00 03/12/2019 19:57:02 [id number] [facility] [place] [address] [place] [address] [place] [address] 04/16/2019 00:00:00 04/16/2019 12:42:36 [id number] [facility] [place] [address] [place] [address] [address] [place] [address] 04/26/2019 00:00:00 04/26/2019 12:57:24 [id number] [facility] [place] [address] [place] [address] [place] [address] 06/04/2019 00:00:00 06/04/2019 19:50:38 [id number] [facility] [place] [address] [place] [address] [place] [address] 06/11/2019 00:00:00 06/11/2019 18:09:56 [id number] [facility] [place] [address] [place] [address] [place] [address] 06/21/2019 00:00:00 06/21/2019 21:27:46 [id number] [facility] [place] [address] [place] [address] [place] [address] 06/29/2019 00:00:00 06/29/2019 20:38:40 [id number] [facility] [place] [address] [place] [address] [place] [address] 07/26/2019 00:00:00 07/26/2019 21:47:48 [id number] _[facility]_ IGRATION_ DEFAULT_2 2_1 , 09/04/2019 00:00:00 09/04/2019 13:55:20 [id number] [facility] [place] [address] [place] [address] [place] [address] 09/11/2019 00:00:00 09/11/2019 20:24:02 [id number] [facility] [place] [address] [place] [address] [place] [address] 11/08/2019 00:00:00 11/08/2019 10:03:23 [id number] [facility] [place] [address] [place] [address] [place] [address] 12/11/2019 00:00:00 12/11/2019 18:39:53 [id number] _[facility]_ IGRATION_ DEFAULT_2 2_1 , 12/14/2019 00:00:00 12/14/2019 14:36:01 [id number] [facility] [place] [address] [place] [address] [place] [address] 01/15/2020 00:00:00 01/15/2020 13:12:43 [id number] [facility] [place] [address] [place] [address] [place] [address] 03/10/2020 00:00:00 03/10/2020 13:10:45 [id number] [facility] [place] [address] [place] [address] [place] [address] 03/17/2020 00:00:00 03/17/2020 18:38:52 [id number] [facility] [place] [address] [place] [address] [place] [address] 03/27/2020 00:00:00 03/27/2020 16:19:08 [id number] [facility] [place] [address] [place] [address] [place] [address] 04/17/2020 00:00:00 04/17/2020 20:35:51 [id number] [facility] [place] [address] [place] [address] [place] [address] 07/14/2020 00:00:00 07/14/2020 18:25:39 [id number] [facility] [place] [address] [place] [address] [place] [address] 08/04/2020 00:00:00 08/04/2020 20:45:13 [id number] [facility] [place] [address] [place] [address] [place] [address] 08/11/2020 00:00:00 08/11/2020 19:45:31 [id number] [facility] [place] [address] [place] [address] [place] [address] 08/20/2020 00:00:00 08/20/2020 15:42:53 [id number] [facility] [place] [address] [place] [address] [place] [address] 08/25/2020 00:00:00 08/25/2020 16:15:19 [id number] [facility] [place] [address] [place] [address] [place] [address] 09/23/2020 00:00:00 09/23/2020 20:04:26 [id number] [facility] [place] [address] [place] [address] [place] [address] 12/24/2020 00:00:00 12/24/2020 18:44:29 [id number] [facility] [place] [address] [place] [address] [place] [address] 03/18/2021 00:00:00 03/18/2021 14:22:16 [id number] [facility] [place] [address] [place] [address] [place] [address] 04/10/2021 00:00:00 04/10/2021 21:06:05 [id number] [place]i Mayen [place] [facility] [place] [address] [place] [address] [place] [address] 08/06/2021 09:15:42 08/06/2021 16:05:26 Screening for malignant neoplasm of colon 160691953 Z12.12 Z12.11 patient unable or unwilling to have colonoscop y; alternativ e screening ordered Onychomycosis 120177973 B35.1 [id number] Jacki Mayen [place] [facility] [place] [address] [place] [address] [place] [address] 08/20/2021 13:35:59 08/20/2021 15:31:32 Basal cell carcinoma of skin 346965324 C44.91 [id number] Jacki Mayen [place] [facility] [place] [address] [place] [address] [place] [address] 09/17/2021 13:14:55 09/17/2021 14:32:38 Gastroesophageal reflux disease 497903422 K21.9 He has gastroesop hageal reflux disease, he does not know what medicine he is taking but he is on Prilosec twice daily of tried him tell him to go to once every other day we have had discussion multiple times before he is no longer taking his sulcal fate his condition is stable and not progressin g Asthma 551862685 J45.90 9 Has had a lifetime of asthma reactive airways disease and is now using the albuterol 2 puffs every 6 hours only as needed and is no longer using his preventati ve medicine such as Advair Memory impairment 511838 006 R41.3 His memory impairment is getting worse out of extended private discussion with his today outside of this patient's presence she informs me that he is confused often and becoming very possessive of her and sad to watch his decline making her depressed Onychomycosis 094223792 B35.1 He still has a little toenail fungus of all of his problems is really the least of his issues with only a minor issue on his left great toe he is completed a course of Lamisil. Basal cell carcinoma of skin 198049127 C44.91 I recommende d to get the small basal cell the right side of his face surgically removed we have made alma ts for a plastic surgeon to see him [id number] Jacki Mayen MD [facility] [place] [address] [place] [address] [place] [address] 03/24/2022 12:46:01 03/24/2022 15:39:53 Adult health examination 025180497 Z00.00 Annual Wellness Visit done today Advance care planning 71 7221658 Z71.89 Active or passive immunization 276894107 Z23 Prostate s pecific antigen above reference range 163706570 R97.20 Dementia 56122960 F03.90 Blood in urine [id number] R31.9 Memory impairment 144896 006 R41.3 His memory impairment is getting worse out of extended private discussion with his today outside of this patient's presence she informs me that he is confused often and becoming very possessive of her and sad to watch his decline making her depressed Asthma 901612141 J45.90 9 Has had a lifetime of asthma reactive airways disease and is now using the albuterol 2 puffs every 6 hours only as needed and is no longer using his preventati ve medicine such as Advair Gastroesop hageal reflux disease 508251306 K21.9 He has gastroesop hageal reflux disease, [...] Glass Member ID Guarantor Name 08/06/2021 1 [employer] (MEDICARE REPLACEMENT HMO) Oswaldo Young [id number] 01 Oswaldo Young 08/20/2021 1 [employer] (MEDICARE REPLACEMENT HMO) Oswaldo Young [id number] 01 Oswaldo Young 09/17/2021 1 [employer] (MEDICARE REPLACEMENT HMO) Oswaldo Young [id number] 1 [id number] 01 Oswaldo Young 03/24/2022 1 [employer] (MEDICARE REPLACEMENT HMO) Oswaldo Yonug [id number] 1 [id number] 01 Oswaldo Young Notes Date Note Type Note Provider Name and Address Organization Details Recorded Time 08/06/2021 text/html CORONAVIRUS SCREENING [id number] white male comes in today with a [...] vaccine product did you receive?Moderna Imported from [facility] on 08/06/2021 QUALITY MEASURE QUESTIONNAIRE ?Are you a diabetic patient ?No ?Has the Patient previously received any type of colorectal cancer screener ?No Imported from [facility] on 08/06/2021 Jacki Mayen MD [address] [facility] [address] [place], [address], [facility], [facility] 08/06/2021 20:22:20 08/20/2021 text/html CORONAVIRUS SCREENING TOOLDiego [...] tested positive for COVID-19 ?No Imported from [facility] on 08/20/2021 Jack[facility] Mayen MD [address] [facility] [place], [address], [facility] - [facility], [facility] 08/20/2021 19:04:39 09/17/2021 text/html CORONAVIRUS SCREENING TOOL [...] tested positive for COVID-19 ?No Imported from [facility] on 09/17/2021 Jacki Mayen MD [address] [facility] [address], [place], [address], [facility] - [facility], [facility] 09/17/2021 19:15:56 03/24/2022 text/html Medicare Annual Wellness [...] month and they like to go to [facility]. He tells me that his dementia is not good but not bad and not changing. He had annual labs done on 03/17/22 and the results were reviewed today. He has no new complaints today. Jacki Mayen MD [address] [facility] [address], [place], [address], [facility] - [facility], [facility] 03/24/2022 16:34:05
== END 2024-11-01 13:32 | disposition home or self-care (01) ==
LOC: HO.HMCC 12:38
PROVIDERS: PCP Nurse Practitioner Family; Visit Provider Nurse Practitioner Family
DX: I10 Essential (primary) hypertension (principal); E78.5 Hyperlipidemia, unspecified

== ENCOUNTER → 2024-11-01 12:38 | Outpatient (BNVA) | payer MEDICARE, SELFPAY | PROVIDERS: PCP Nurse Practitioner Family; Visit Provider Nurse Practitioner Family | DX: I10 Essential (primary) hypertension (principal); E78.5 Hyperlipidemia, unspecified | CPT/HCPCS: 96127; 99212 ==

== ENCOUNTER 2024-11-26 12:51 | Outpatient (REF) | payer MEDICARE, SELFPAY ==
--- NOTE | ~2024-11-26 | CT_ITS ---
EXAMINATION: CT CHEST WITHOUT CONTRAST CLINICAL INFORMATION: Solitary pulmonary nodule. COMPARISON: December 05, 2023. TECHNIQUE: Multidetector volumetric CT imaging of the chest was done. Axial MIP volume rendering provided. Sagittal and coronal reformatted images were obtained. This CT examination was performed using dose optimization techniques as appropriate, variously including the following: *Automated exposure control *Adjustment of mA and/or kV according to patient size (this includes techniques or standardized protocols for targeted exams where dose is matched to indication/reason for exam; i.e. extremities or head) *Use of iterative reconstruction technique DLP: 462 mGy centimeter. FINDINGS: SKEIN YARD DRIER: No hyperinflation. Patient's large body habitus. Upper extremities at both sides of the head. LUNGS: There is a 2.5 mm noncalcified pulmonary nodule in the periphery of the right upper lung lobe. There is a 1 mm pulmonary groundglass nodule, right upper lung lobe. There is a 3.8 mm noncalcified pulmonary nodule, left lung base. Triangular shaped attenuation with volume loss in the right middle lung lobe. No bronchiectasis. No honeycombing. MEDIASTINUM: No lymphadenopathy. No aneurysm, thoracic aorta. Calcified plaque in the aortic arch. Trace volume pericardial effusion. No pneumomediastinum. Heart is not enlarged. CORONARY ARTERY CALCIFICATION: None visualized on this study. PLEURA: No pleural effusion. No pneumothorax. AXILLA: No lymphadenopathy. UPPER ABDOMEN: Radiopaque structure in the duodenal bulb loss probably a tablet. Gallbladder is contracted. There is a 2 cm hypodensity in the peripheral left hepatic lobe measuring fluid density. Calcified plaques in the origin of the celiac trunk. Calcified plaques in the splenic artery. Small hiatal hernia. OSSEOUS STRUCTURES: Multilevel cervical thoracic spondylosis no acute fracture or listhesis. No gross lytic or blastic lesion. CT/CT chest wo IV con IMPRESSION: Nonspecific less than 4 mm noncalcified pulmonary nodules. Subsegmental atelectasis versus scarring, right middle lung lobe. Fleischner guidelines were followed. Electronically signed by: Mikal Whelan MD 11/26/2024 01:56 PM EDT
--- OUTSIDE RECORDS SUMMARY | 2024-11-26 13:09 | XMS_ITS | Data Portability ---
Author Organization [place] - [facility], Allergy Address [address] [address] Care Team Providers Care Type Proof Reproducer Name Role Phone HARRIS PENNY Primary Care Provider [phone] Assessment Encounter Date Assessment Date Assessment LastModified by Organization Details LastModified Time 02/10/2024 02/10/2024 Patient was referred for evaluation of left parotid nodule. 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 Procedures Surgical History Date Name Laterality Status Provider Name and Address Organization Details Recorded Time procedure on wrist completed Ca Dawson [place] - [facility] 02/10/2024 14:09:06 Imaging Results Imaging Date [...] DAY, THEN 1 [facility] completed Not Available Not Available Not Available cholecalcif mahesh (vitamin D3) 50 mcg (2,000 unit) capsule TAKE 1 CAPSULE BY MOUTH EVERY DAY active Not Available Not Available No t Available Vitals Date Recorded Body height Body mass index (BMI) Body weight Provider Name and Address Organization Details Last Updated DateTime 02/10/2024 170.18 cm 34 kg/m2 08749.54 g Ca Dawson [place] [facility] 02/10/2024 14:32:31 Social History None recorded. Functional Status None recorded. Mental Status None recorded. Family History Nothing Reported. 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 Health Concerns Section Related Observation LastModified by Organization Detai ls LastModified Time None Recorded Concern Status LastModified by Organization Details LastModified Time None Recorded Advance Directives Directive None Recorded Payers Insurance Date Sequence Insurance Name Policy Number Policy Glass Covered Member ID Glass Member ID Guarantor Name 02/10/2024 1 [employer] - MEDICARE ADVANTAGE PLAN (MEDICARE REPLACEMENT HMO) [id number] Oswaldo Young [id number] Oswaldo Young Notes Date Note Type Note Provider Name and Address Organization Details Recorded Time 02/10/2024 text/html new patient referred for parotid massno symptoms of pain in side of necktobacco - in 1960s 10/24/23 [facility] -13 x 6 x 7 mm left intraparotid lymph node, 11 x 5 x 7 mm right intraparotid lymph node 12/11/22 ct cervical spine 4mm hypodensity left parotid retired from [facility] ARTURO CONN MD [address] [address], [place], [address], [facility] 02/10/2024 14:56:17
--- OUTSIDE RECORDS SUMMARY | 2024-11-26 13:10 | XMS_ITS | Continuity of Care Document ---
Author Organization [facility] Address [address] [facility] [place] [address] Phone Care Team Providers Care Registered Diet Technician Name Role Phone Derian Chavez OD Unavailable [...] on Encounter [facility], [address] [place], [place], [id number] , [place] [phone] [facility] Foreign body sensation (chief complaint) Ocular pain, right eyePunctate keratitis, right eye Sep-2 0 Scott Menard. [address] [place], [place], [id number] , . tel: [phone] Referring Provider: Derian Engle, [address] [place] [address], [address] . tel:[phone] [facility], [address] [place], [place], [id number] , [place] tel: [phone] TEA Henefer lattice (chief complaint) Unspecified chorioretinal scars, right eyeVitreomacular adhesion, left eyeVitreous degeneration, right eyeSerous detachment of retinal pigment epitheliumPuckering of macula, bilateral Aug- 0 [facility]. [address] [place] [address], [id number] , [place]. tel:[phone] Referring Provider: Sotero Diaz, [address] [place] [address], [address] . tel:[phone] [facility], [address] [place] [address], [id number] , [place] tel: [phone] TEA Henefer PO other (chief complaint) Round hole, right eyeHorseshoe tear of retina without detachment, right eyeLattice degeneration of retina, right eye Nov- 9 [facility]. [address] [place] [address], [id number] , [place]. tel: [phone] Referring Provider: Sotero Diaz, [address] [place] [address], [address] . tel:[phone] [facility], [address] [place], [place], [id number] , [place] tel: [phone] TEA Henefer Retinal Tear (chief complaint) Horseshoe tear of retina without detachment, right eyeRound hole, right eyeLattice degeneration of retina, right eye Oct-3 0- 9 [facility]. [facility] [place], [place], [id number] , [place]. tel: [phone] Referring Provider: Derian Engle, [address] [place], [address] . tel:[phone] [facility], [address] [place] [address], [id number] , tel: [phone] TEA Romeo floaters (chief complaint) Horseshoe tear of retina without detachment, right eyeLattice degeneration of retina, right eyeRound hole, right eyeVitreous degeneration, right eyeVitreomacular adhesion, left eyeSerous detachment of retinal pigment epithelium Oct-1 9 [facility] [address] [place] [address], [id number] , [place]. tel: [phone] Referring Provider: Sotero Diaz, [address] [place] [address], [address] . tel:[phone] [facility], [address] [place] [address], [id number] , [place] tel: [phone] TEA [address] Foreign body sensation (chief complaint) Vitreous degeneration, right eyeLattice degeneration of retina, right eyeHorseshoe tear of retina without detachment, right eye Oct-1 9 Scott Menard. [address] [place] [address], [id number] , . tel: [phone] Referring Provider: Derian Engle, [address] [place] [address], [address] . tel:[phone] Family History Family Member Type Diagnosis Age [...] Future Order: Radiology Order OC T Macula ([id number]), Collected on: Ordered Future Order: Radiology Order Be rosales Vera ([id number]), Sent on: Sent Future Order: Radiology Order OC T Macula ([id number]), Collected on: Ordered History Of Present Illness [...]
--- OUTSIDE RECORDS SUMMARY | 2024-11-26 13:10 | XMS_ITS | Data Portability ---
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 given his failing memory I recommended he decrease his Prilosec which he takes for GERD every other day and see if he can tolerate that he was taking it b.i.d. that q.day now with no symptoms. 4. allergic rhinitis using [id number] medications. 5. Asthma not using any medications at this time has been on Advair in the past. 6. GERD as stated above. 7. Preventive healthcare discuss he is up-to-date with all vaccines gets a comprehensive eye exam every year his pain level is 0/10 [email or web address] Not available 03/18/2021 13:51:20 04/10/2021 04/10/2021 75-year-old [...] vitamin D, 25-hydroxy, total, serum 2020 021 [facility], [address], [place], [address], 08:13:21 lipid panel, serum 2020 021 [facility], [address], [place], [address], 08:13:19 CMP, serum or plasma 2020 021 [facility], [address], [place], [address], 08:13:18 PSA, total, serum or plasma 2020 021 [facility], [address], [place], [address], 08:13:21 TSH, serum or plasma 2020 021 [facility], [address], [place], [address], 08:13:20 urinalysis complete, reflex culture 2020 021 [facility], [address], [place], [address], 08:13:18 CBC w/ auto diff 2020 021 [facility], [address], [place], [address], 08:13:17 Referral None recorded. Procedures None recorded. Surgeries None recorded. Imaging None recorded. Medication Orders None recorded. Patient TargetsNo targets recorded. Patient Instructions Encounter Date Encounter Id Patient Instructions Last Modified By Organization Details Last Modified Time 03/18/2021 [id number] alcohol use disorders identification test* [email or web address] Not available 03/18/2021 13:53:15 fall risk screening* [email or web address] Not agnes ilable 03/18/2021 13:53:15 geriatric depres logan screen* Not available 03/18/2021 13:53:15 multi-dimensiona l health assessment questionnaire* JUAN Not available 03/18/2021 21:36:12 Advance Care Directives Patient WebLink Handout [email or web address] Not available 03/18/2021 13:53:15 advance directiv es: care instructions Not available 03/18/2021 13:53:15 Personalized Hea lth [...] ? Pain Management Plan: ? ? ? [email or web address] Not available 03/18/2021 13:13:00 10/26/2021 [id number] learning about b yuki cell skin cancer Not available 10/26/2021 16:23:55 skin lesions: ca re instructions Not available 10/26/2021 16:23:55 Reason for Referral None Reported. Results Created Date Observation Date Name Description Value Unit Range Abnormal Flag Note LastModifiedBy Organization Detail LastModifiedTime 03/24/20 21 03/25/2021 CBC WITH DIFFE RENTI AL/PL ATELE T WBC 10.1 x10e3 /uL 3.4-10 .8 Not Available [facility] ([facility]) [address] [facility], [place], [address], 03/28/2021 08:13:16 03/24/20 21 03/25/2021 CBC WITH DIFFE RENTI AL/PL ATELE T RBC 4.80 x10e6 /uL 4.14-5 .80 Not Available [facility] ([facility]) [address] [facility], [place], [address], 03/28/2021 08:13:16 03/24/2003/25/2021 CBC WITH DIFFE RENTI AL/PL ATELE T hemoglobin 15.7 g/dL 13.0-1 7.7 Not Available [facility] ([facility]) [address] [facility], [place], [address], 03/28/2021 08:13:16 03/24/2003/25/2021 CBC WITH DIFFE RENTI AL/PL ATELE T hematocrit 44.9 % 37.5-5 1.0 Not Available [facility] ([facility]) [address] [facility], [place], [address], 03/28/2021 08:13:16 03/24/2003/25/2021 CBC WITH DIFFE RENTI AL/PL ATELE T MCV 94 fL 79-97 Not Available [facility] ([facility]) [address] [facility], [place], [address], 03/28/2021 08:13:16 03/24/20 21 03/25/2021 CBC WITH DIFFE RENTI AL/PL ATELE T MCH 32.7 pg 26.6-3 3.0 Not Available [facility] ([facility]) [address] [facility], [place], [address], 03/28/2021 08:13:16 03/24/2003/25/2021 CBC WITH DIFFE RENTI AL/PL ATELE T MCHC 35.0 g/dL 31.5-3 5.7 Not Available [facility] ([facility]) [address] [facility], [place], [address], 03/28/2021 08:13:16 03/24/2003/25/2021 CBC WITH DIFFE RENTI AL/PL ATELE T RDW 12.1 % 11.6-1 5.4 Not Available [facility] ([facility]) [address] [facility], [place], [address], 03/28/2021 08:13:16 03/24/2003/25/2021 CBC WITH DIFFE RENTI AL/PL ATELE T platelets 303 x10e3 /uL 150-45 0 Not Available [facility] ([facility]) [address] [facility], [place], [address], 03/28/2021 08:13:16 03/24/2003/25/2021 CBC WITH DIFFE RENTI AL/PL ATELE T neutrophils 68 % not estab. Not Available [facility] ([facility]) [address] [facility], [place], [address], 03/28/2021 08:13:16 03/24/2003/25/2021 CBC WITH DIFFE RENTI AL/PL ATELE T lymphs 23 % not estab. Not Available [facility] ([facility]) [address] [facility], [place], [address], 03/28/2021 08:13:16 03/24/20 21 03/25/2021 CBC WITH DIFFE RENTI AL/PL ATELE T monocytes 7 % not estab. Not Available [facility] ([facility]) [address] [facility], [place], [address], 03/28/2021 08:13:16 03/24/20 21 03/25/2021 CBC WITH DIFFE RENTI AL/PL ATELE T eos 2 % not estab. Not Available [facility] ([facility]) [address] [facility], [place], [address], 03/28/2021 08:13:16 03/24/2003/25/2021 CBC WITH DIFFE RENTI AL/PL ATELE T basos 0 % not estab. Not Available [facility] ([facility]) [address] [place], [address], 03/28/2021 08:13:16 03/24/2003/25/2021 CBC WITH DIFFE RENTI AL/PL ATELE T immature cells SECURITY RESEARCHER Not Available [facility] ([facility]) [address] [place], [address], 03/28/2021 08:13:16 03/24/2003/25/2021 CBC WITH DIFFE RENTI AL/PL ATELE T neutrophils (absolute) 6.8 x10e3 /uL 1.4-7. 0 Not Available [facility] ([facility]) [address] [place], [address], 03/28/2021 08:13:16 03/24/2003/25/2021 CBC WITH DIFFE RENTI AL/PL ATELE T lymphs (absolute) 2.3 x10e3 /uL 0.7-3. 1 Not Available [facility] ([facility]) [address] [place], [address], 03/28/2021 08:13:16 03/24/2003/25/2021 CBC WITH DIFFE RENTI AL/PL ATELE T monocytes(ab solute) 0.7 x10e3 /uL 0.1-0. 9 Not Available [facility] ([facility]) [address] [place], [address], 03/28/2021 08:13:16 03/24/20 21 03/25/2021 CBC WITH DIFFE RENTI AL/PL ATELE T eos (absolute) 0.2 x10e3 /uL 0.0-0. 4 Not Available [facility] ([facility]) [address] [facility], [place], [address], 03/28/2021 08:13:16 03/24/20 21 03/25/2021 CBC WITH DIFFE RENTI AL/PL ATELE T baso (absolute) 0.0 x10e3 /uL 0.0-0. 2 Not Available [facility] ([facility]) [address] [facility], [place], [address], 03/28/2021 08:13:16 03/24/20 21 03/25/2021 CBC WITH DIFFE RENTI AL/PL ATELE T immature granulocytes 0 % not estab. Not Available [facility] ([facility]) [address] [facility], [place], [address], 03/28/2021 08:13:16 03/24/20 21 03/25/2021 CBC WITH DIFFE RENTI AL/PL ATELE T immature grans (abs) 0.0 x10e3 /uL 0.0-0. 1 Not Available [facility] ([facility]) [address] [facility], [place], [address], 03/28/2021 08:13:16 03/24/20 21 03/25/2021 CBC WITH DIFFE RENTI AL/PL ATELE T NRBC SECURITY RESEARCHER Not Available [facility] ([facility]) [address] [facility], [place], [address], 03/28/2021 08:13:16 03/24/20 21 03/25/2021 CBC WITH DIFFE RENTI AL/PL ATELE T hematology comments: SECURITY RESEARCHER Not Available [facility] ([facility]) [address] [facility], [place], [address], 03/28/2021 08:13:16 03/24/20 21 03/25/2021 COMP. METAB OLIC PANEL (14) glucose 101 mg/dL 65-99 above high normal Not Available [facility] ([facility]) [address] [facility], [place], [address], 03/28/2021 08:13:17 03/24/20 21 03/25/2021 COMP. METAB OLIC PANEL (14) BUN 17 mg/dL 8-27 Not Available [facility] ([facility]) [address] [facility], [place], [address], 03/28/2021 08:13:17 03/24/20 21 03/25/2021 COMP. METAB OLIC PANEL (14) creatinine 1.06 mg/dL 0.76-1 .27 Not Available [facility] ([facility]) [address] [facility], [place], [address], 03/28/2021 08:13:17 03/24/20 21 03/25/2021 COMP. METAB OLIC PANEL (14) eGFR if nonafricn AM 69 mL/mi n/1.7 3 >59 Not Available [facility] ([facility]) [address] [facility], [place], [address], 03/28/2021 08:13:17 03/24/20 21 03/25/2021 COMP. METAB [...] SN Task force . Not Available [facility] ([facility]) [address] [facility], [place], [address], 03/28/2021 08:13:17 03/24/20 21 03/25/2021 COMP. METAB OLIC PANEL (14) BUN/creatini ne ratio 16 10-24 Not Available [facility] ([facility]) [address] [place], [address], 03/28/2021 08:13:17 03/24/20 21 03/25/2021 COMP. METAB OLIC PANEL (14) sodium 143 mmol/ L 134-14 4 Not Available [facility] ([facility]) [address] [place], [address], 03/28/2021 08:13:17 03/24/20 21 03/25/2021 COMP. METAB OLIC PANEL (14) potassium 4.7 mmol/ L 3.5-5. 2 Not Available [facility] ([facility]) [address] [place], [address], 03/28/2021 08:13:17 03/24/20 21 03/25/2021 COMP. METAB OLIC PANEL (14) chloride 100 mmol/ L 96-106 Not Available [facility] ([facility]) [address] [place], [address], 03/28/2021 08:13:17 03/24/20 21 03/25/2021 COMP. METAB OLIC PANEL (14) carbon dioxide, total 24 mmol/ L 20-29 Not Available [facility] ([facility]) [address] [place], [address], 03/28/2021 08:13:17 03/24/20 21 03/25/2021 COMP. METAB OLIC PANEL (14) calcium 9.5 mg/dL 8.6-10 .2 Not Available [facility] ([facility]) [address] [place], [address], 03/28/2021 08:13:17 03/24/20 21 03/25/2021 COMP. METAB OLIC PANEL (14) protein, total 7.1 g/dL 6.0-8. 5 Not Available [facility] ([facility]) [address] [place], [address], 03/28/2021 08:13:17 03/24/20 21 03/25/2021 COMP. METAB OLIC PANEL (14) albumin 4.7 g/dL 3.7-4. 7 Not Available [facility] ([facility]) [address] [place], [address], 03/28/2021 08:13:17 03/24/20 21 03/25/2021 COMP. METAB OLIC PANEL (14) globulin, total 2.4 g/dL 1.5-4. 5 Not Available [facility] ([facility]) [address] [place], [address], 03/28/2021 08:13:17 03/24/20 21 03/25/2021 COMP. METAB OLIC PANEL (14) A/G ratio 2.0 1.2-2. 2 Not Available [facility] ([facility]) [address] [place], [address], 03/28/2021 08:13:17 03/24/20 21 03/25/2021 COMP. METAB OLIC PANEL (14) bilirubin, total 0.4 mg/dL 0.0-1. 2 Not Available [facility] ([facility]) [address] [place], [address], 03/28/2021 08:13:17 03/24/20 21 03/25/2021 COMP. METAB [...] 121 44 - 121 Not Available [facility] ([facility]) [address] [place], [address], 03/28/2021 08:13:17 03/24/20 21 03/25/2021 COMP. METAB OLIC PANEL (14) AST (SGOT) 26 IU/L 0-40 Not Available [facility] ([facility]) [address] [place], [address], 03/28/2021 08:13:17 03/24/20 21 03/25/2021 COMP. METAB OLIC PANEL (14) ALT (SGPT) 34 IU/L 0-44 Not Available [facility] ([facility]) [address] [place], [address], 03/28/2021 08:13:17 03/24/20 21 03/25/2021 UA WITH CULTU RE REFLE X specific gravity 1.019 1.005- 1.030 Not Available [facility] ([facility]) [address] [place], [address], 03/28/2021 08:13:18 03/24/20 21 03/25/2021 UA WITH CULTU RE REFLE X pH 6.0 5.0-7. 5 Not Available [facility] ([facility]) [address] [place], [address], 03/28/2021 08:13:18 03/24/20 21 03/25/2021 UA WITH CULTU RE REFLE X urine-color Yellow yellow Not Available [facility] ([facility]) [address] [place], [address], 03/28/2021 08:13:18 03/24/20 21 03/25/2021 UA WITH CULTU RE REFLE X appearance Clear clear Not Available [facility] ([facility]) [address] [facility], [place], [address], 03/28/2021 08:13:18 03/24/20 21 03/25/2021 UA WITH CULTU RE REFLE X WBC esterase Negati ve negati ve Not Available [facility] ([facility]) [address] [facility], [place], [address], 03/28/2021 08:13:18 03/24/20 21 03/25/2021 UA WITH CULTU RE REFLE X protein Negati ve negati ve/tra ce Not Available [facility] ([facility]) [address] [facility], [place], [address], 03/28/2021 08:13:18 03/24/20 21 03/25/2021 UA WITH CULTU RE REFLE X glucose Negati ve negati ve Not Available [facility] ([facility]) [address] [facility], [place], [address], 03/28/2021 08:13:18 03/24/20 21 03/25/2021 UA WITH CULTU RE REFLE X ketones Negati ve negati ve Not Available [facility] ([facility]) [address] [place], [address], 03/28/2021 08:13:18 03/24/20 21 03/25/2021 UA WITH CULTU RE REFLE X occult blood Trace negati ve abnormal Not Available [facility] ([facility]) [address] [place], [address], 03/28/2021 08:13:18 03/24/20 21 03/25/2021 UA WITH CULTU RE REFLE X bilirubin Negati ve negati ve Not Available [facility] ([facility]) [address] [facility], [place], [address], 03/28/2021 08:13:18 03/24/20 21 03/25/2021 UA WITH CULTU RE REFLE X urobilinogen ,semi-qn 0.2 mg/dL 0.2-1. 0 Not Available [facility] ([facility]) [address] [facility], [place], [address], 03/28/2021 08:13:18 03/24/20 21 03/25/2021 UA WITH CULTU RE REFLE X nitrite, urine Negati ve negati ve Not Available [facility] ([facility]) [address] [facility], [place], [address], 03/28/2021 08:13:18 03/24/20 21 03/25/2021 UA WITH CULTU RE REFLE X microscopic examination See below: Micro scopi c was indic ated and was perfo rmed. Not Available [facility] ([facility]) [address] [facility], [place], [address], 03/28/2021 08:13:18 03/24/20 21 03/25/2021 UA WITH CULTU RE REFLE X WBC None seen /hpf 0 - 5 Not Available [facility] ([facility]) [address] [facility], [place], [address], 03/28/2021 08:13:18 03/24/20 21 03/25/2021 UA WITH CULTU RE REFLE X RBC 0-2 /hpf 0 - 2 Not Available [facility] ([facility]) [address] [facility], [place], [address], 03/28/2021 08:13:18 03/24/20 21 03/25/2021 UA WITH CULTU RE REFLE X epithelial cells (non renal) None seen /hpf 0 - 10 Not Available [facility] ([facility]) [address] [facility], [place], [address], 03/28/2021 08:13:18 03/24/20 21 03/25/2021 UA WITH CULTU RE REFLE X epithelial cells (renal) SECURITY RESEARCHER Not Available [facility] ([facility]) [address], [place], [address], 03/28/2021 08:13:18 03/24/20 21 03/25/2021 UA WITH CULTU RE REFLE X casts None seen /lpf none seen Not Available [facility] ([facility]) [address], [place], [address], 03/28/2021 08:13:18 03/24/20 21 03/25/2021 UA WITH CULTU RE REFLE X cast type SECURITY RESEARCHER Not Available [facility] ([facility]) [address], [place], [address], 03/28/2021 08:13:18 03/24/20 21 03/25/2021 UA WITH CULTU RE REFLE X crystals SECURITY RESEARCHER Not Available [facility] ([facility]) [address], [place], [address], 03/28/2021 08:13:18 03/24/20 21 03/25/2021 UA WITH CULTU RE REFLE X crystal type SECURITY RESEARCHER Not Available [facility] ([facility]) [address], [place], [address], 03/28/2021 08:13:18 03/24/20 21 03/25/2021 UA WITH CULTU RE REFLE X mucus threads SECURITY RESEARCHER Not Available [facility] ([facility]) [address], [place], [address], 03/28/2021 08:13:18 03/24/20 21 03/25/2021 UA WITH CULTU RE REFLE X bacteria None seen none seen/f ew Not Available [facility] ([facility]) [address], [place], [address], 03/28/2021 08:13:18 03/24/20 21 03/25/2021 UA WITH CULTU RE REFLE X yeast SECURITY RESEARCHER Not Available [facility] ([facility]) [address] [place], [address], 03/28/2021 08:13:18 03/24/20 21 03/25/2021 UA WITH CULTU RE REFLE X trichomonas SECURITY RESEARCHER Not Available [facility] ([facility]) [address] [place], [address], 03/28/2021 08:13:18 03/24/20 21 03/25/2021 UA WITH CULTU RE REFLE X comment SECURITY RESEARCHER Not Available [facility] ([facility]) [address] [place], [address], 03/28/2021 08:13:18 03/24/20 21 03/25/2021 UA WITH CULTU RE REFLE X urinalysis reflex Commen t This speci men will not refle x to a Urine Cultu re. Not Available [facility] ([facility]) [address] [place], [address], 03/28/2021 08:13:18 03/24/20 21 03/25/2021 LIPID PANEL cholesterol, total 235 mg/dL 100-19 9 above high normal Not Available [facility] ([facility]) [address] [place], [address], 03/28/2021 08:13:19 03/24/20 21 03/25/2021 LIPID PANEL triglyceride s 157 mg/dL 0-149 above high normal Not Available [facility] ([facility]) [address] [place], [address], 03/28/2021 08:13:19 03/24/20 21 03/25/2021 LIPID PANEL HDL cholesterol 46 mg/dL >39 Not Available [facility] ([facility]) [address] [place], [address], 03/28/2021 08:13:19 03/24/20 21 03/25/2021 LIPID PANEL VLDL cholesterol concha 29 mg/dL 5-40 Not Available [facility] ([facility]) [address] [facility], [place], [address], 03/28/2021 08:13:19 03/24/20 21 03/25/2021 LIPID PANEL LDL chol calc ([facility]) 160 mg/dL 0-99 above high normal Not Available [facility] ([facility]) [address] [facility], [place], [address], 03/28/2021 08:13:19 03/24/20 21 03/25/2021 LIPID PANEL comment: SECURITY RESEARCHER Not Available [facility] ([facility]) [address] [facility], [place], [address], 03/28/2021 08:13:19 03/24/20 21 03/27/2021 THYRO ID STIMU LATIN G HORMO NE TSH-icma 1.6 uu/mL Refer ence Range : Non-P regna nt Adult 0.450 -4.50 0 Not Available [facility] [address] [facility], [place], [address], 03/28/2021 08:13:20 03/24/20 21 03/25/2021 PROST ATE-S [...] t be inter prete d as absol yurok evide nce of the prese nce or absen ce of cesario shelby se. Not Available [facility] ([facility]) [address] [facility], [place], [address], 03/28/2021 08:13:20 03/24/20 21 03/25/2021 VITAM IN [...] Basilia jacobs [place]: [facility] . 2. Graham pineda [place], Raffaele rasmussen [place], Nicky off-F sumit i FLORES, et al. Evalu ation , treat ment, and preve ntion of vitam in D defic iency : an Endoc rine Socie ty clini concha pract ice guide line. JCEM. 2010; 96(7) :1911 -30. Not Available [facility] ([facility]) [address] [facility], [place], [address], 03/28/2021 08:13:21 11/24/19 22 12/15/2021 SURGI CONCHA PATHO LOGY REPOR T results . ACCES LOGAN: 804-P S-[id number] RESPO NSIBL E PATHO LOGIS T: [...] 11/26 10:44 EDT PKB Perfo rmed at: [facility] [address] [place] [address] Phone : [phone] Gross Descr iptio n A. Recei fausto [...] by [place]. 45769 x 3 / / 11/25 17:33 EDT Clini concha Histo ry NA Not Available [facility] (Lab) [address], [place], [address], 12/15/2021 09:40:20 11/26/19 22 11/26/2021 SURGI CONCHA PATHO LOGY REPOR T results . ACCES LOGAN: 804-P S-22- [id number] 16 RESPO NSIBL E PATHO LOGIS T: [...] 11/26 10:44 EDT PKB Perfo rmed at: [facility] [address] [place] [address] Phone : Gross Descr iptio n A. [...] by [place]. 62334 x 3 / / 11/25 17:33 EDT Clini concha Histo ry NA Not Available [facility] (Lab) [address], [place], [address], 11/26/2021 10:44:08 05/20/2005/20/2021 MRI, prost ate, w/wo contr ast No observ ation record ed. [facility] ([facility]) [address] [place] [address], [id number], 05/22/2021 08:38:37 Result Notes None recorded. Problems Name Problem SNOMED Code Status Onset Date Resolution Date Notes Provider Name and Address Organization Details Recorded Time Allergic conjunctivitis 351126950 Active Nicolasa napoles [facility] [place] 8 13:23:11 Sleep apnea 33570803 Active 2016 Nicolasa napoles [facility] [place] 8 13:22:58 Vitamin D deficiency 07886925 Active 2016 Nicolasa napoles [facility] [place] 8 13:23:14 Osteoarthritis 222609320 Active 2016 Nicolasa Perdue null, [place] - [facility] [place] 8 13:23:18 Memory impairment 838239476 Active 2016 Nicolasa Perdue null, [place] - [facility] [place] 7 15:52:18 Generalized anxiety disorder 97854811 Active 2017 Nicolasa Perdue null, [facility] [place] 8 13:45:01 Obesity 862032534 Active 2017 Nicolasa Perdue null, [facility] [place] 8 08:42:14 Basal cell carcinoma of skin 242135127 Active 2019 BAKARI RAHMAN MD [address], [address], [facility] - [facility] [place] 0 13:54:56 Skin lesion 64466639 Active 2021 BAKARI RAHMAN MD [address],[facility], [place], [address], [facility] - [facility] [place] 2 16:23:50 Persistent insomnia 276040830 Active Nicolasa Perdue null, [address] 8 13:23:21 Testicular hypofunction 506889454 Active Nicolasa Perdue null, [place] - [facility] [place] 8 13:23:19 Gastroesophage al reflux disease 817226644 Active Nicolasa Perdue null, [place] - [address] 8 13:23:08 Pain of hip region 81299116 Active Nicolasa Perdue null, [facility] [place] 8 13:23:25 Allergic rhinitis 57307144 Active Nicolasa Perdue null, [place] - [facility] [facility] [place] 8 13:23:16 Asthma [id number] Active Nicolasa Perdue null, [place] - [facility] [place] 8 13:23:05 Pure hypercholester olemia 355070084 Active Nicolasa Perdue null, [place] - [facility] [place] 8 13:23:07 Problem Notes None recorded. Procedures Surgical History Date Name Laterality Status Provider Name and Address Organization Details Recorded Time 11/24/19 22 Blank Procedure Template completed BAKARI RAHMAN MD [address], [place], [address], [address] 11/23/2021 13:54:10 03/18/20 21 Medicare Wellness CPT Code, Subsequent completed Tracy Reagan, [address] 03/18/2021 13:13:01 03/17/20 20 Medicare Wellness CPT Code, Subsequent completed Tracy Reagan, [address] 03/17/2020 10:36:00 11/08/19 20 Telehealth Communication completed Liseth Le, [address] 11/08/2019 08:27:00 04/26/20 19 Removal of Foreign Body completed Raleigh Downey MD [address], [place], [address], [address] 04/26/2019 12:57:03 03/12/20 19 Medicare Wellness CPT Code, Subsequent completed Tracy Reagan, [address] 03/12/2019 10:10:40 03/07/20 18 Medicare Wellness CPT Code, Subsequent completed Sheri Collins, [address] 03/07/2018 13:19:38 02/10/20 17 Medicare Wellness CPT Code, Subsequent completed Scarlett Hanna, [address] 02/09/2017 13:16:21 07/20/19 17 Removal of foreign body - Eye completed Nicolasa Perdue [address] 07/20/2016 11:49:56 07/18/19 12 Colonoscopy completed Sheri Collins [address] 11/22/2016 09:39:16 hernia completed BAKARI RAHMAN MD [address], [place], [address], [address] 09/04/2019 13:51:45 Imaging Results Imaging Date Name Status LastModified by Organiz ation Details LastModified Time 05/20/2021 MRI, prostate, w/wo contrast completed [facility] ([facility] [address] [place] [address], [phone], 05/22/2021 08:38:37 Procedure Notes None recorded. Medical Equipment None Reported. Allergies Allergen ID Allergen Name Allergen Category Reaction Reaction Severity Criticality Documentation Date Start Date Code Code System Note Provider Name and Address Organization Details Recorded Time 477724 Product containin g 3-hydroxy -3-methyl glutaryl- coenzyme A reductase inhibitor (product) medicatio n other moderate Not available 01/12/2016 48401 009 SNOMED Palpi tatio ns Quique [facility], [place] - [facility] [place] 6 14:54:04 Medications Name Sig Start Date [...] Not Available Not Available fluzone high-dose pf 5161-6732 .5 ml mehrdad active Not Available Not Available Not Available fluzone high-dose pf 4723-9613 .5 ml mehrdad active Not Available Not [...] Available polymyxin b sulfate/t rimethopr im sulfate 60153-7.1 unit/ml-% soln 02/09 completed Not Available Not [...] Not Available Not Available Not Available fluad 3138-7455 .5 ml mehrdad 06/11 completed Not Available Not Available Not Available sulfameth oxazole/t rimethopr im ds 800-160 mg tabs active Not Available Not Available Not Available hydrocodo ne/acetam inophen 5-325 mgtabs active Not Available Not Available Not Available fluzone high-dose pf 8634-7412 .5 ml mehrdad 06/03 completed Not Available [...] Not Available Not Available Not Available Flulaval 3395-8954 45 mcg (15 mcg x 3)/0.5 mL intramusc ular suspensio n active Not Available Not Available Not Available Anoro Ellipta 62.5 mcg-25 mcg/actua tion powder for inhalatio n Inhale 1 puff every day by inhalati on route for 90 days. 2015 active Not Available Not Available Not Avai lable Fluvirin 4871-8896 45 mcg (15 mcg x 3)/0.5 mL intramusc ular suspensio n INJECT 0.5 ML INTRAMUS CULARLY DIRECTED . active Not Available Not Available No t Available Fluzone High-Dose 2014- (PF) 180 mcg/0.5 mL intramusc ular syringe active Not Available Not Available Not Available Fluzone High-Dose 1397-4580 (PF) 180 mcg/0.5 mL intramusc ular syringe ADM 0.5ML IM UTD active Not Available Not Available No t Available Fluzone High-Dose 1862-5208 (PF) 180 mcg/0.5 mL intramusc ular syringe [...] Available Not Available Not Available Fluad Quad 8528-5852 (65yr up)(PF) 60 mcg (15 mcg x [...] Updated DateTime 1 163.83 cm 33.9 kg/m2 45699.2 7 g 45 /min 18 /min 98 [degF] 0 174 mm[Hg] 84 mm[Hg] MAURO Byrd [facility] [place] 13:22:04 Date Recorded Body height Body mass index (BMI) Body weight Heart rate Respiratory rate Body temperature Systolic blood pressure Diastolic blood pressure Provider Name and Address Organization Details Last Updated DateTime 163.83 cm 33.8 kg/m2 34711.4 7 g 87 /min 18 /min 97.9 [degF] 184 mm[Hg] 96 mm[Hg] Tracy Reagan [facility] [place] 14:04:53 Date Recorded Body height Provider Name an d Address Organization Details Last Updated DateTime 10/26/2021 163.83 cm Tima Decker [address] 10/26/2021 15:43:05 Date Recorded Body height Provider Name an d Address Organization Details Last Updated DateTime 11/23/2021 163.83 cm Tima Decker [address] 11/23/2021 13:16:30 Date Recorded Body height Provider Name an d Address Organization Details Last Updated DateTime 03/26/2022 163.83 cm Georgina Fish LPN [address] 03/26/2022 15:27:17 Social History Question Answer Notes LastModified by Organizat ion Details LastModified Time Tobacco Smoking Status Former Smoker Quit 1964 Aury Sandoval CMA [address] 09/04/2019 13:22:36 Do You Have An Advance Directive? No Information not available 02/09/2017 Are You Blind Or Do You Have Difficulty Seeing? No Information not available 02/09/2017 What Is Your Level Of Caffeine Consumption? None [email or web address] Information not available 03/18/2021 Are You Deaf Or Do You Have Serious Difficulty Hearing? No Information not available 02/09/2017 What Type Of Diet Are You Following? REGULAR Information not available 02/16/2013 When Did You Quit Smoking? 1-5yearssinc elastcigaret te [email or web address] Information not available 03/18/2021 Live Alone Or With Others? With Others Information not available 04/23/2013 Do You Feel Safe At Home? Yes Information not available 02/09/2017 Marital Status eva Informati on not available 02/16/2013 Do You Have A Medical Power Of Bag Filler Machine Operator? No Information not available 03/18/2021 What Was The Date Of Your Most Recent Tobacco Screening? 11/23/2021 [email or web address] Information not available 11/23/2021 How Many Children Do You Have? 2 Information not available 12/25/2013 What Is Your Current Pack Years? [email or web address] Information not available 03/18/2021 Seat Belts Used Routinely Yes Information not available 02/09/2017 Smoke Alarm In Home Yes Information not available 02/09/2017 At What Age Did You Start Smoking Tobacco? 16 Information not available 12/25/2013 How Much Tobacco Do You Smoke? 0.5 PPD [email or web address] Information not available 09/04/2019 General Stress Level Low Information not available 02/16/2013 Do You Use Sunscreen Routinely? No Information not available 02/09/2017 Has Tobacco Cessation Counseling Been Provided? No [email or web address] Information not available 03/18/2021 How Many Years Have You Smoked Tobacco? 2 [email or web address] Information not available 09/04/2019 Sex: Unknown Functional Status Question Answer Note LastModified by Organizat ion Details LastModified Time How many times per week do you consume alcohol? 1-2 times per week [email or web address] Information not available 03/18/2021 Do you use any illicit or recreational drugs? No [email or web address] Information not available 03/18/2021 Do you or have you ever used any other forms of tobacco or nicotine? No [email or web address] Information not available 03/18/2021 What is your level of alcohol consumption? Occasional [email or web address] Information not available 02/16/2013 Do you have difficulty walking or climbing stairs? No Information not available 02/09/2017 Do you have difficulty doing errands alone? 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 No Information not available 02/09/2017 What is your exercise level? Occasional [email or web address] Information not available 02/16/2013 Mental Status Question Answer Note LastModified by Organization D etails LastModified Time Do you have difficulty concentrating, remembering or making decisions? No Information no t available 02/09/2017 Family History Relationship Description Onset Age of this Age Resolved Age Notes LastModified by Organization Details LastModified Time Brother Alive [email or web address] Not available 07/22/2016 16:28:24 Father Chronic cerebrovascu lar accident 71 [email or web address] Not available 11/2016 16:28:24 Mother Old-age 87 Not available 07/22/2016 16:28:24 Notes:2 children alive and w ell Medical History Condition Response Asthma Y GERD/Reflux Y Hepatitis Y Hyperlipidemia Y Immunizations Vaccine Type Date Status Note Provider Nam e and Address Organization Details Recorded Time Influenza, split virus, trivalent, preservative 4 completed Liseth Le RMA null, [address] 06/11/2019 13:01:11 Influenza, high-dose, trivalent, PF 5 completed Not Available [facility] 02:11:28 Pneumococcal conjugate PCV 13 5 completed Tracy Reagan RMA null, [facility] [place] 03/18/2021 13:14:30 zoster live 0 completed Tracy Reagan RMA null, [address] 03/18/2021 13:14:31 pneumococcal, unspecified formulation 0 completed Tracy Reagan RMA null, [facility] [place] 03/18/2021 13:14:30 Influenza, split virus, trivalent, preservative 3 completed Tracy Reagan RMA null, [facility] [place] 03/18/2021 13:14:31 tetanus toxoid, unspecified formulation 0 completed Tracy Reagan RMA null, [facility] [place] 03/18/2021 13:14:30 Influenza, split virus, trivalent, preservative 4 completed Tracy Reagan RMA null, [address] 03/18/2021 13:14:30 pneumococcal, unspecified formulation 0 completed Scarlett Jacques, PLAYER SERVICES REPRESENTATIVE null, [address] 02/09/2017 13:19:19 tetanus toxoid, unspecified formulation 0 completed Scarlett Jacques, PLAYER SERVICES REPRESENTATIVE null, [address] 02/09/2017 13:19:19 Influenza, split virus, trivalent, preservative 3 completed Scarlett Jacques, PLAYER SERVICES REPRESENTATIVE null, [address] 02/09/2017 13:19:19 Influenza, split virus, quadrivalent, preservative 3 completed Not Available [facility] 08/18/2019 02:11:10 Influenza, split virus, trivalent, preservative 4 completed Not Available [facility] 08/18/2019 02:11:10 Influenza, split virus, trivalent, preservative 2 completed Not Available [facility] 08/18/2019 02:11:10 zoster live 0 completed Scarlett Jacques, PLAYER SERVICES REPRESENTATIVE null, [address] 02/09/2017 13:19:19 Past Encounters Encounter ID Performer Location Encounter Start Date Encounter Closed Date Diagnosis/Indication Diagnosis SNOMED-CT Code Diagnosis ICD10 Code Diagnosis Note [id number] [facility] [address] [place] [address] 01/29/2013 15:24:44 01/30/2013 09:26:15 [id number] [facility] [address] [place] [address] 04/23/2013 15:19:32 04/23/2013 16:51:22 Fatigue [id number] [facility] [id number] [facility] [address] [place] [address] 06/04/2013 10:16:56 06/04/2013 12:45:31 Lipoma of skin 412685892 [id number] [facility] [address] [place] [address] 06/18/2013 15:46:39 06/19/2013 09:56:43 Lipoma of skin 443256684 [id number] [facility] [address] [place] [address] 11/19/2013 15:54:48 11/19/2013 16:58:21 Asthma 722992047 Acute bronchitis 40985387 Cough 15447953 [id number] [facility] [address] [place] [address] 12/25/2013 13:05:51 12/26/2013 16:36:58 Pure hypercholesterolemia 131396902 Adult heal th examination 558525026 Pain of hip region 86027075 Sleep apnea 54628411 Allergic rhinitis 38171281 Gastroesop hageal reflux disease 170265925 Body mass index 30+ - obesity 407114985 Screening for malignant neoplasm of rectum 624029428 [id number] [facility] [address] [place] [address] 04/04/2014 13:07:47 04/04/2014 14:33:36 Allergic rhinitis 22830896 Skin lesion 33888106 [id number] [facility] [address] [place] [address] 01/07/2015 13:02:06 01/07/2015 17:27:58 Adult health examination 346118328 Asthma 052743389 Sleep apnea 86439625 Memory impairment 087599991 Body mass index 30+ - obesity 532838959 Administra tion of pneumococcal vaccine 36447232 Screening for malignant neoplasm of rectum 549923399 [id number] [facility] [address] [place] [address] 01/28/2015 10:44:03 01/28/2015 11:23:40 Pure hypercholesterolemia 801715033 Medication monitoring 538791424 [id number] [facility] [address] [place] [address] 04/01/2015 10:00:35 04/01/2015 17:36:22 Pure hypercholesterolemia 503009056 Senile hyperkeratosis 154960087 [id number] Jacki Mayen MD [facility] [address] [place] [address] 07/07/2015 13:07:15 07/07/2015 14:00:36 Sleep apnea 66279646 G47.30 Obesity 696641041 E66.9 [id number] Jacki Mayen MD [facility] [address] [place] [address] 08/07/2015 13:29:36 08/07/2015 15:17:15 Upper respiratory infection 71795424 J06.9 Cough 40500612 R05 [id number] Jacki Mayen MD [facility] [address] [place] [address] 09/18/2015 14:21:19 09/18/2015 16:17:56 Pain in thumb 509303815 M79.645 Hand pain 32978526 M79.6 42 [id number] [facility] [address] [place] [address] 10/08/2015 08:56:56 10/08/2015 11:29:36 Asthma 137217713 J45.909 Allergic rhinitis 257472 04 J30.9 Cough 23949236 R05 Allergic conjunctivitis 170850883 H10.13 Acute bronchitis 3051941 2 J20.9 [id number] Jacki Mayen MD [facility] [address] [place] [address] 11/20/2015 14:08:59 11/20/2015 15:42:38 Allergic rhinitis 67230726 J30.9 Allergic conjunctivitis 197984998 H10.13 Asthma 564922569 J45.90 9 [id number] MD [facility] [address] [place] [address] 12/08/2015 09:00:19 12/08/2015 13:22:40 Tinea sherriuris 991510291 B35.6 [id number] MD [facility] [address] [place] [address] 01/12/2016 12:58:53 01/12/2016 16:35:25 Adult health examination 948472802 Z00.01 Z72.89 Z79.899 N42.9 Z12.5 E78.5 E55.9 Fatigue 02150420 R53.83 Poor short -term memory 572147699 R41.3 Acute félix l impairment 892119604 N28.9 Essential hypertension 92064587 I10 Screening for malignant neoplasm of rectum 960109010 Z12.12 Pain in thumb 030978131 M79.645 Hypercholesterolemia 136 35635 E78.0 Sleep apnea 62425997 G47 .30 [id number] MD [facility] [address] [place] [address] 02/11/2016 10:45:29 02/11/2016 13:36:44 Essential hypertension 31166682 I10 Hypogonadism 04281485 E2 9.1 [id number] MD [facility] [address] [place] [address] 03/04/2016 15:27:05 03/04/2016 16:45:58 Tinea marilee 855594045 B35.6 Palpitations 46012375 R0 0.2 [id number] MD [facility] [address] [place] [address] 03/11/2016 10:00:58 03/11/2016 15:30:44 Palpitations 33149951 R00.2 [id number] MD [facility] [address] [place] [address] 04/14/2016 14:46:03 04/14/2016 16:43:04 Premature atrial contraction 087197569 I49.1 Ventricula r premature beats 09192557 I49.3 Transient cerebral ischemia 022171434 G45.9 [id number] Robert Hernandez MD [facility] [facility] [address] [facility] [address] [place] [address] 05/24/2016 15:03:00 05/24/2016 16:02:33 [id number] Jacki Mayen MD [facility] [address] [place] [address] 06/29/2016 14:05:17 06/29/2016 16:19:26 Acute bronchitis 04367608 J20.9 Asthma 525242397 J45.90 9 Cough 77554881 R05 [id number] Jacki Mayen MD [facility] [address] [place] [address] 07/20/2016 11:13:42 07/20/2016 14:25:53 Foreign body in eye 4658185042 91785 H44.169 [id number] Jacki Mayen MD [facility] [address] [place] [address] 07/22/2016 15:23:30 07/22/2016 16:58:21 [facility] 7959592 H00.13 [id number] Jacki Mayen MD [facility] [address] [place] [address] 02/09/2017 12:14:27 02/09/2017 15:00:48 Adult health examination 440976149 Z00.00 Screening for disorder 197080281 Z13.9 Sleep apnea 72169115 G47 .30 Adverse re action to drug 19420638 T88.7XXA On Zocor- feels bad Pain in right foot 53402 03054 06961 M79.671 Vitamin D deficiency 347 13215 E55.9 Osteoarthritis 776479947 M19.90 Poor short -term memory 905201254 R41.3 Impotence 870377275 N52. 9 Screening for malignant neoplasm of colon 066027908 Z12.11 [id number] Jacki Mayen MD [facility] [address] [place] [address] 06/03/2017 10:23:50 06/03/2017 13:16:31 Obesity 906047061 E66.9 Poor short -term memory 630712171 R41.3 [id number] [facility] [address] [place] [address] 07/06/2017 15:44:58 07/06/2017 16:36:07 Memory impairment 856088421 R41.3 Medication monitoring 39 4553161 Z51.81 Obesity 117556008 E66.9 Impotence 737955160 N52. 9 [id number] Jacki Mayen MD [facility] [address] [place] [place] [address] 10/12/2017 09:57:08 10/12/2017 10:43:43 Essential hypertension 04569538 I10 Candidiasis of skin 4988 3006 B37.2 Generalize d anxiety disorder 40538500 F41.1 Allergic rhinitis 640498 04 J30.9 [id number] Jacki Mayen MD [facility] [address] [place] [address] 12/21/2017 15:14:38 12/21/2017 16:10:50 Difficulty maintaining weight loss 767253800 E66.9 Obesity 414366770 E66.9 [id number] Jacki Mayen MD [facility] [address] [place] [address] 03/07/2018 13:15:21 03/07/2018 15:22:34 Adult health examination 356229297 Z00.00 Screening for disorder 795212340 Z13.89 Obesity 959185383 E66.9 Pure hypercholesterolemia 966348003 E78.00 Gastroesop hageal reflux disease 923359361 K21.9 Vitamin D deficiency 347 82570 E55.9 Asthma 652125023 J45.90 9 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 Generalize d anxiety disorder 79914850 F41.1 Sleep apnea 59196190 G47 .30 Screening for malignant neoplasm of colon 277420332 Z12.11 Z12.12 [id number] Jacki Mayen MD [facility] [address] [place] [address] 05/16/2018 08:17:50 05/16/2018 11:06:26 Obesity 632225329 E66.9 Sleep apnea 49620855 G47 .30 [id number] Jacki Mayen MD [facility] [address] [place] [address] 06/16/2018 10:07:32 06/16/2018 11:19:36 Gout 64604083 M10.9 Memory impairment 524725 006 R41.3 [id number] Jacki Mayen MD [facility] [address] [place] [address] 08/14/2018 09:26:24 08/14/2018 12:32:33 Generalized anxiety disorder 69673919 F41.1 Memory impairment 008511 006 R41.3 Palpitations 80564087 R0 0.2 [id number] Jacki Mayen MD [facility] [address] [place] [address] 09/04/2018 11:02:21 09/04/2018 13:03:57 Allergic rhinitis 33971735 J30.9 Palpitations 11217847 R0 0.2 Memory impairment 780643 006 R41.3 [id number] Jacki Mayen MD [facility] [address] [place] [address] 10/13/2018 14:18:19 10/13/2018 16:54:25 Ventricular tachycardia 99751723 I47.2 Palpitations 25651648 R0 0.2 Lesion of skin of face 7593441183 06 L98.9 [id number] Jacki Mayen MD [facility] [address] [place] [address] 11/30/2018 09:28:23 11/30/2018 13:21:54 Nonsustained ventricular tachycardia 072482780 I47.2 Left ventr icular hypertrophy 66727716 I51.7 Memory impairment 052200 006 R41.3 Insomnia 407037317 G47.0 0 Allergic rhinitis 332736 04 J30.9 [id number] Jacki Mayen MD [facility] [address] [place] [address] 12/28/2018 13:20:03 12/28/2018 15:21:08 Candidiasis of skin 18259951 B37.2 Memory impairment 650841 006 R41.3 Wound of skin 951320504 T14.8XXA Osteoarthr itis of joint of hand 98226857 M19.030 [id number] Jacki Mayen MD [facility] [address] [place] [address] 03/02/2019 14:32:33 03/02/2019 16:21:35 Impetigo 16996435 L01.00 [id number] Jacki Mayen MD [facility] [address] [place] [address] 03/12/2019 09:36:33 03/12/2019 13:19:23 Adult health examination 316358317 Z00.00 Screening for disorder 355863883 Z13.89 Depression screening 171 452394 Z13.31 Pure hypercholesterolemia 055584332 E78.00 Essential hypertension 77447632 I10 Fatigue 36352537 R53.83 Screening for malignant neoplasm of prostate 769219493 Z12.5 Memory impairment 046332 006 R41.3 Medication monitoring 39 0122658 Z51.81 Generalize d anxiety disorder 68262922 F41.1 Low back pain 566993477 M54.5 Pain in right thumb 1076 866827 538933 M79.644 Dementia 80949219 F03.90 Asthma 419778049 J45.90 9 Screening for malignant neoplasm of colon 616891932 Z12.11 Z12.12 [id number] [facility] [address] [place] [address] 04/16/2019 08:58:10 04/16/2019 10:23:22 Pain in thumb 953988193 M79.220 [id number] Raleigh Downey MD [facility] CARE [address] [place] [address] 04/26/2019 12:09:46 04/26/2019 13:01:13 Retained foreign body in eye 50756433 H44.709 flushed clear [id number] Jacki Mayen MD [facility] [address] [place] [address] 06/04/2019 13:05:17 06/04/2019 15:30:04 Ingrowing nail 159880921 L60.0 [id number] Jacki Mayen MD [facility] [address] [facility] [address] [place] [address] 06/11/2019 12:46:50 06/11/2019 14:29:07 Pain of hip region 45671389 M25.559 Hand pain 05115278 M79.6 41 M10.9 Fatigue 60014520 R53.83 Nausea 443929841 R11.0 Abdominal pain 83873736 R10.9 Indigestion 191321196 K3 0 Dementia 84203728 F03.90 Anxiety 06015213 F41.9 Muscle weakness 32415739 M62.81 [id number] Jacki Mayen MD [facility] [address] [facility] [place] [address] 06/21/2019 10:37:40 06/21/2019 13:07:55 Fatigue 83249750 R53.83 Abdominal pain 85258552 R10.9 Muscle weakness 67090361 M62.81 [id number] [facility] [address] [place] [address] 06/29/2019 11:09:30 06/29/2019 14:23:48 Postoperative wound infection 82616357 T81.40XA right hand [id number] Jacki Mayen MD [facility] [address] [place] [address] 07/26/2019 12:50:00 07/26/2019 13:52:47 Pain in throat 037433910 R07.0 Pharyngitis 022893109 J0 2.9 Lesion of skin of face 7112381067 06 L98.9 [id number] BAKARI RAHMAN MD [facility] [address] [place] [address] 09/04/2019 12:42:04 09/04/2019 13:39:11 Basal cell carcinoma of skin 450180706 C44.91 [id number] Jacki Mayen MD [facility] [address] [facility] [address] [place] [address] 09/11/2019 15:07:19 09/11/2019 16:27:39 Asthma 232758628 J45.909 Poor short -term memory 344502622 R41.3 [id number] Jacki Mayen MD [facility] [address] [place] [address] [place] [address] 11/08/2019 08:14:39 11/08/2019 09:38:58 Acute gastroenteritis 00659047 K52.9 Nausea and vomiting 1693 2000 R11.2 [id number] Jacki Mayen MD [facility] [address] [place] [address] [place] [address] 12/11/2019 14:05:02 12/11/2019 15:39:56 Abdominal pain 28671268 R10.9 Nausea 292862772 R11.0 Muscle weakness 28864281 M62.81 Fatigue 95350732 R53.83 Diarrhea 25482857 R19.7 Gastritis 9138515 K29.70 Dizziness 172467536 R42 [id number] BAKARI RAHMAN MD [facility] [address] [place] [address] 12/14/2019 14:08:04 12/14/2019 14:41:59 Basal cell carcinoma of skin 585490616 C44.91 [id number] Jacki Mayen MD [facility] [address] [facility] [address] [place] [address] 01/15/2020 10:37:28 01/15/2020 12:40:42 Gastroesophageal reflux disease 520401261 K21.9 Gastric ulcer 061956236 K25.9 Abdominal pain 01775706 R10.9 [id number] Jacki Mayen MD [facility] [address] [address] 03/10/2020 08:18:12 03/10/2020 13:09:14 Pain in both feet 3870050007 5636353 M79.671 M79.672 Testicular hypofunction 433404552 E29.1 Pure hypercholesterolemia 779466837 E78.00 Vitamin D deficiency 347 89803 E55.9 Fatigue 45757094 R53.83 Pain in left knee 288910 7173 94089 M25.562 [id number] [facility] [address] [address] 03/17/2020 13:03:43 03/17/2020 14:59:03 Adult health examination 826627736 Z00.00 Screening for disorder 224092339 Z13.89 Depression screening 171 064650 Z13.31 Gastroesop hageal reflux disease 917171027 K21.9 Generalize d anxiety disorder 87654124 F41.1 Medication monitoring 39 4137060 Z51.81 Asthma 301303172 J45.90 9 Dementia 91509244 F03.90 [id number] MD [facility] [address] [address] 03/27/2020 15:03:52 03/27/2020 15:37:08 Pain in left knee 0241961159 60930 M25.562 [id number] [facility] [address] [address] 04/17/2020 15:50:16 04/17/2020 16:45:04 Prostate specific antigen above reference range 756498561 R97.20 Prostate mass 249310557 R19.09 [id number] Jacki Mayen MD [facility] [address] [place] [address] 07/14/2020 14:09:45 07/14/2020 16:03:43 Onychomycosis 016772669 B35.1 [id number] MD [facility] [address] [place] [address] 08/04/2020 11:04:06 08/04/2020 12:41:31 Polyp of colon 13246992 K63.5 Pruritus ani 23311815 L2 9.0 [id number] MD [facility] [address] [place] [address] 08/11/2020 15:48:23 08/11/2020 17:03:27 Dark stools 45670349 R19.5 Tinea cruris 729517535 B 35.6 [id number] Jacki Mayen MD [facility] [address] [place] [address] 08/20/2020 13:30:52 08/20/2020 14:43:47 Onychomycosis 244270421 B35.1 Asthma 854711283 J45.90 9 Essential hypertension 99374853 I10 [id number] [facility] [address] [place] [address] 08/25/2020 13:30:52 08/25/2020 15:10:46 Peptic ulcer 27176649 K27.9 Indigestion 442187979 K3 0 Nausea 254042018 R11.0 [id number] MD [facility] [address] [place] [address] 09/23/2020 13:30:49 09/23/2020 15:53:09 Peptic ulcer 01764442 K27.9 Gastroesop hageal reflux disease without esophagitis 869080358 K21.9 [id number] MD [facility] [address] [place] [address] 12/24/2020 13:36:18 12/24/2020 16:07:51 Gastroesophageal reflux disease 919159247 K21.9 Tinea corporis 34433877 B35.4 [id number] Jacki Mayen MD [facility] [address] [place] [address] 03/18/2021 12:49:08 03/18/2021 14:19:00 Adult health examination 548924355 Z00.00 Screening for disorder 300077913 Z13.89 Depression screening 171 744040 Z13.31 Pure hypercholesterolemia 291344888 E78.00 Vitamin D deficiency 347 63200 E55.9 Testicular hypofunction 282834637 E29.1 Fatigue 04564706 R53.83 Gastroesop hageal reflux disease 842464990 K21.9 Memory impairment 143496 006 R41.3 Obesity 995400214 E66.9 Essential hypertension 35620963 I10 [id number] Jacki Mayen MD [facility] [address] [place] [address] 04/10/2021 13:50:11 04/10/2021 15:03:21 Constipation 91736512 K59.00 [id number] BAKARI RAHMAN MD [facility] [address] [facility] [address] [place] [address] 10/26/2021 15:25:17 10/26/2021 16:02:03 Basal cell carcinoma of skin 043027334 C44.91 Skin lesion 73446841 L98 .9 [id number] BAKARI RAHMAN MD [facility] [address] [facility] [address] [place] [address] 11/23/2021 13:11:11 11/23/2021 13:45:52 Basal cell carcinoma of skin 856158205 C44.91 Skin lesion 43953446 L98 .9 [id number] BAKARI RAHMAN MD [facility] [address] [facility] [address] [place] [address] 03/26/2022 15:17:14 03/26/2022 15:27:56 Basal cell carcinoma of skin 159115198 C44.91 Health Concerns Section Related Observation LastModified by Organization Detai ls LastModified Time None Recorded Concern Status LastModified by Organization Details LastModified Time None Recorded Advance Directives Directive N: Payers Insurance Date Sequence Insurance Name Policy Number Policy Glass Covered Member ID Glass Member ID Guarantor Name 03/29/2022 1 [employer] (MEDICARE REPLACEMENT HMO) Oswaldo Young [id number] 1 [id number] Oswaldo Young Notes Date Note Type [...] failing memory and asthma Jacki Mayen MD [address] [facility], [place], [address], [facility] [place] 03/18/2021 14:22:16 04/10/2021 text/html This patient is [...] to his colon Jacki Mayen MD [address], [place], [address], [facility] [place] 04/10/2021 21:06:05 10/26/2021 text/html the patient repo [...] not becoming pathologic. BAKARI RAHMAN MD [address], [place], [address], [facility] [place] 10/26/2021 16:24:17 11/23/2021 text/html The patient came in today for removal of the basal cell carcinoma from his right cheek. He also came for biopsy of the lesion on the medial cheek and the right side of the nose. BAKARI RAHMAN MD [address], [place], [address], [facility] [place] 11/23/2021 13:58:19 03/26/2022 text/html The patient was concerned about some mild erythema on his right cheek surgical site. No fevers or chills. No drainage. BAKARI RAHMAN MD [address], [place], [address], [facility] [place] 03/26/2022 15:32:20
== END 2024-11-26 12:52 | disposition home or self-care (01) ==
LOC: HO.CT 12:51
PROVIDERS: PCP Nurse Practitioner Family; Visit Provider Hospitalist
DX: R91.1 Solitary pulmonary nodule (principal)
CPT/HCPCS: 71250

== ENCOUNTER → 2024-11-26 12:59 | Outpatient (BNV) | payer MEDICARE, SELFPAY | PROVIDERS: PCP Nurse Practitioner Family; Visit Provider Radiology Diagnostic Radiology | DX: R91.8 Other nonspecific abnormal finding of lung field (principal) | CPT/HCPCS: 71250 ==

== ENCOUNTER → 2024-11-27 11:56 | Outpatient (REF) | payer MEDICARE, SELFPAY ==
--- NOTE | 2024-11-27 12:03 | ECG_ITS ---
Test Reason : PREOP Blood Pressure : */* mmHG Vent. Rate : 89 BPM Atrial Rate : 89 BPM P-R Int : 182 ms QRS Dur : 68 ms QT Int : 326 ms P-R-T Axes : 38 52 82 degrees QTcB Int : 396 ms Normal sinus rhythm Nonspecific T wave abnormality Abnormal ECG When compared with ECG of 17-Sep-2024 12:06, No significant change was found Referred By: Abdifatah Reyes Electronically Signed By: SHON MOULTON MD
--- OUTSIDE RECORDS SUMMARY | 2024-11-27 13:20 | XMS_ITS | Continuity of Care Document ---
Author Organization [facility] Address [address] [facility] [place] [address] Phone Care Team Providers Care Network Systems Administrator Name Role Phone Derian Chavez OD Unavailable [...] on Encounter [facility], [address] [place], [place], [id number] , [place] [phone] [facility] Foreign body sensation (chief complaint) Ocular pain, right eyePunctate keratitis, right eye Sep-2 0 Scott Menard. [address] [place], [place], [id number] , . tel: [phone] Referring Provider: Derian Engle, [address] [place] [address], [address] . tel:[phone] [facility], [address] [place], [place], [id number] , [place] tel: [phone] TEA [place] lattice (chief complaint) Unspecified chorioretinal scars, right eyeVitreomacular adhesion, left eyeVitreous degeneration, right eyeSerous detachment of retinal pigment epitheliumPuckering of macula, bilateral Aug- 0 [facility]. [address] [place] [address], [id number] , [place]. tel:[phone] Referring Provider: Sotero Diaz, [address] [place] [address], [id number] . tel:[phone] [facility], [address] [place] [address], [id number] , [place] tel: [phone] TEA [place] [address] other (chief complaint) Round hole, right eyeHorseshoe tear of retina without detachment, right eyeLattice degeneration of retina, right eye Nov- 9 [facility]. [address] [place] [address], [id number] , [place]. tel: [phone] Referring Provider: Sotero Diaz, [address] [place] [address], [id number] . tel:[phone] [facility], [address] [place], [place], [id number] , [place] tel: [phone] TEA [place] Retinal Tear (chief complaint) Horseshoe tear of retina without detachment, right eyeRound hole, right eyeLattice degeneration of retina, right eye Oct-3 0- 9 [facility]. [facility] [place], [place], [id number] , [place]. tel: [phone] Referring Provider: Derian Engle, [address] [place], [address] . tel:[phone] [facility], [address] [place] [address], [id number] , tel: [phone] TEA [place] floaters (chief complaint) Horseshoe tear of retina without detachment, right eyeLattice degeneration of retina, right eyeRound hole, right eyeVitreous degeneration, right eyeVitreomacular adhesion, left eyeSerous detachment of retinal pigment epithelium Oct-1 9 [facility] [address] [place] [address], [id number] , [place]. tel: [phone] Referring Provider: Sotero Diaz, [address] [place] [address], [id number] . tel:[phone] [facility], [address] [place] [address], [id number] , [place] tel: [phone] [facility] [address] Foreign body sensation (chief complaint) Vitreous degeneration, right eyeLattice degeneration of retina, right eyeHorseshoe tear of retina without detachment, right eye Oct-1 9 Scott Menard. [address] [place] [address], [id number] , . tel: [phone] Referring Provider: Derian Engle, [address] [place] [address], [id number] . tel:[phone] Family History Family Member Type Diagnosis Age At Onset No Information Immunizations Vaccine Date Status Comments Flu (split) (3 yrs or older) administered Source: Other Provider Payers Payer name Insurance type Covered libertarian ID Authoriza tion(s) No Information Social History [...] Future Order: Radiology Order OC T [place] ([id number]), Collected on: Ordered Future Order: Radiology Order Be rosales Vera ([id number]), Sent on: Sent Future Order: Radiology Order OC T [place] ([id number]), Collected on: Ordered History Of Present Illness [...]
--- OUTSIDE RECORDS SUMMARY | 2024-11-27 13:20 | XMS_ITS | Data Portability ---
Author Organization [place] - [facility]14 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 given his failing memory I recommended he decrease his Prilosec which he takes for GERD every other day and see if he can tolerate that he was taking it b.i.d. that q.day now with no symptoms. 4. allergic rhinitis using lwzf-urs-qigtwce medications. 5. Asthma not using any medications at this time has been on Advair in the past. 6. GERD as stated above. 7. Preventive healthcare discuss he is up-to-date with all vaccines gets a comprehensive eye exam every year his pain level is 0/10 [email or web address] Not available 03/18/2021 13:51:20 04/10/2021 04/10/2021 75-year-old [...] vitamin D, 25-hydroxy, total, serum 2020 021 [facility], [address], [place], [address], 08:13:21 lipid panel, serum 2020 021 [facility], [address], [place], [address], 08:13:19 CMP, serum or plasma 2020 021 [facility], [address], [place], [address], 08:13:18 PSA, total, serum or plasma 2020 021 [facility], [address], [place], [address], 08:13:21 TSH, serum or plasma 2020 021 [facility], [address], [place], [address], 08:13:20 urinalysis complete, reflex culture 2020 021 [facility], [address], [place], [address], 08:13:18 CBC w/ auto diff 2020 021 [facility], [address], [place], [address], 08:13:17 Referral None recorded. Procedures None recorded. Surgeries None recorded. Imaging None recorded. Medication Orders None recorded. Patient TargetsNo targets recorded. Patient Instructions Encounter Date Encounter Id Patient Instructions Last Modified By Organization Details Last Modified Time 03/18/2021 [id number] alcohol use disorders identification test* [email or web address] Not available 03/18/2021 13:53:15 fall risk screening* [email or web address] Not agnes ilable 03/18/2021 13:53:15 geriatric depres logan screen* [email or web address] Not available 03/18/2021 13:53:15 multi-dimensiona l health assessment questionnaire* JUAN Not available 03/18/2021 21:36:12 Advance Care Directives Patient WebLink Handout [email or web address] Not available 03/18/2021 13:53:15 advance directiv es: [...] ? Pain Management Plan: ? ? ? [email or web address] Not available 03/18/2021 13:13:00 10/26/2021 [id number] learning about b yuki cell skin cancer Not available 10/26/2021 16:23:55 skin lesions: ca re instructions Not available 10/26/2021 16:23:55 Reason for Referral None Reported. Results Created Date Observation Date Name Description Value Unit Range Abnormal Flag Note LastModifiedBy Organization Detail LastModifiedTime 03/24/20 21 03/25/2021 CBC WITH DIFFE RENTI AL/PL ATELE T WBC 10.1 x10e3 /uL 3.4-10 .8 Not Available [facility] ([facility]) [address] [facility], [place], [address], 03/28/2021 08:13:16 03/24/20 21 03/25/2021 CBC WITH DIFFE RENTI AL/PL ATELE T RBC 4.80 x10e6 /uL 4.14-5 .80 Not Available [facility] ([facility]) [address] [facility], [place], [address], 03/28/2021 08:13:16 03/24/2003/25/2021 CBC WITH DIFFE RENTI AL/PL ATELE T hemoglobin 15.7 g/dL 13.0-1 7.7 Not Available [facility] ([facility]) [address] [facility], [place], [address], 03/28/2021 08:13:16 03/24/2003/25/2021 CBC WITH DIFFE RENTI AL/PL ATELE T hematocrit 44.9 % 37.5-5 1.0 Not Available [facility] ([facility]) [address] [facility], [place], [address], 03/28/2021 08:13:16 03/24/2003/25/2021 CBC WITH DIFFE RENTI AL/PL ATELE T MCV 94 fL 79-97 Not Available [facility] ([facility]) [address] [facility], [place], [address], 03/28/2021 08:13:16 03/24/20 21 03/25/2021 CBC WITH DIFFE RENTI AL/PL ATELE T MCH 32.7 pg 26.6-3 3.0 Not Available [facility] ([facility]) [address] [facility], [place], [address], 03/28/2021 08:13:16 03/24/2003/25/2021 CBC WITH DIFFE RENTI AL/PL ATELE T MCHC 35.0 g/dL 31.5-3 5.7 Not Available [facility] ([facility]) [address] [facility], [place], [address], 03/28/2021 08:13:16 03/24/2003/25/2021 CBC WITH DIFFE RENTI AL/PL ATELE T RDW 12.1 % 11.6-1 5.4 Not Available [facility] ([facility]) [address] [facility], [place], [address], 03/28/2021 08:13:16 03/24/2003/25/2021 CBC WITH DIFFE RENTI AL/PL ATELE T platelets 303 x10e3 /uL 150-45 0 Not Available [facility] ([facility]) [address] [facility], [place], [address], 03/28/2021 08:13:16 03/24/2003/25/2021 CBC WITH DIFFE RENTI AL/PL ATELE T neutrophils 68 % not estab. Not Available [facility] ([facility]) [address] [facility], [place], [address], 03/28/2021 08:13:16 03/24/2003/25/2021 CBC WITH DIFFE RENTI AL/PL ATELE T lymphs 23 % not estab. Not Available [facility] ([facility]) [address] [facility], [place], [address], 03/28/2021 08:13:16 03/24/20 21 03/25/2021 CBC WITH DIFFE RENTI AL/PL ATELE T monocytes 7 % not estab. Not Available [facility] ([facility]) [address] [facility], [place], [address], 03/28/2021 08:13:16 03/24/20 21 03/25/2021 CBC WITH DIFFE RENTI AL/PL ATELE T eos 2 % not estab. Not Available [facility] ([facility]) [address] [facility], [place], [address], 03/28/2021 08:13:16 03/24/2003/25/2021 CBC WITH DIFFE RENTI AL/PL ATELE T basos 0 % not estab. Not Available [facility] ([facility]) [address] [place], [address], 03/28/2021 08:13:16 03/24/2003/25/2021 CBC WITH DIFFE RENTI AL/PL ATELE T immature cells LAP GRINDER Not Available [facility] ([facility]) [address] [place], [address], 03/28/2021 08:13:16 03/24/2003/25/2021 CBC WITH DIFFE RENTI AL/PL ATELE T neutrophils (absolute) 6.8 x10e3 /uL 1.4-7. 0 Not Available [facility] ([facility]) [address] [place], [address], 03/28/2021 08:13:16 03/24/2003/25/2021 CBC WITH DIFFE RENTI AL/PL ATELE T lymphs (absolute) 2.3 x10e3 /uL 0.7-3. 1 Not Available [facility] ([facility]) [address] [place], [address], 03/28/2021 08:13:16 03/24/2003/25/2021 CBC WITH DIFFE RENTI AL/PL ATELE T monocytes(ab solute) 0.7 x10e3 /uL 0.1-0. 9 Not Available [facility] ([facility]) [address] [place], [address], 03/28/2021 08:13:16 03/24/20 21 03/25/2021 CBC WITH DIFFE RENTI AL/PL ATELE T eos (absolute) 0.2 x10e3 /uL 0.0-0. 4 Not Available [facility] ([facility]) [address] [facility], [place], [address], 03/28/2021 08:13:16 03/24/20 21 03/25/2021 CBC WITH DIFFE RENTI AL/PL ATELE T baso (absolute) 0.0 x10e3 /uL 0.0-0. 2 Not Available [facility] ([facility]) [address] [facility], [place], [address], 03/28/2021 08:13:16 03/24/20 21 03/25/2021 CBC WITH DIFFE RENTI AL/PL ATELE T immature granulocytes 0 % not estab. Not Available [facility] ([facility]) [address] [facility], [place], [address], 03/28/2021 08:13:16 03/24/20 21 03/25/2021 CBC WITH DIFFE RENTI AL/PL ATELE T immature grans (abs) 0.0 x10e3 /uL 0.0-0. 1 Not Available [facility] ([facility]) [address] [facility], [place], [address], 03/28/2021 08:13:16 03/24/20 21 03/25/2021 CBC WITH DIFFE RENTI AL/PL ATELE T NRBC LAP GRINDER Not Available [facility] ([facility]) [address] [facility], [place], [address], 03/28/2021 08:13:16 03/24/20 21 03/25/2021 CBC WITH DIFFE RENTI AL/PL ATELE T hematology comments: LAP GRINDER Not Available [facility] ([facility]) [address] [facility], [place], [address], 03/28/2021 08:13:16 03/24/20 21 03/25/2021 COMP. METAB OLIC PANEL (14) glucose 101 mg/dL 65-99 above high normal Not Available [facility] ([facility]) [address] [facility], [place], [address], 03/28/2021 08:13:17 03/24/20 21 03/25/2021 COMP. METAB OLIC PANEL (14) BUN 17 mg/dL 8-27 Not Available [facility] ([facility]) [address] [facility], [place], [address], 03/28/2021 08:13:17 03/24/20 21 03/25/2021 COMP. METAB OLIC PANEL (14) creatinine 1.06 mg/dL 0.76-1 .27 Not Available [facility] ([facility]) [address] [facility], [place], [address], 03/28/2021 08:13:17 03/24/20 21 03/25/2021 COMP. METAB OLIC PANEL (14) eGFR if nonafricn AM 69 mL/mi n/1.7 3 >59 Not Available [facility] ([facility]) [address] [facility], [place], [address], 03/28/2021 08:13:17 03/24/20 21 03/25/2021 COMP. METAB [...] SN Task force . Not Available [facility] ([facility]) [address] [facility], [place], [address], 03/28/2021 08:13:17 03/24/20 21 03/25/2021 COMP. METAB OLIC PANEL (14) BUN/creatini ne ratio 16 10-24 Not Available [facility] ([facility]) [address] [facility] [place], [address], 03/28/2021 08:13:17 03/24/20 21 03/25/2021 COMP. METAB OLIC PANEL (14) sodium 143 mmol/ L 134-14 4 Not Available [facility] ([facility]) [address] [facility] [place], [address], 03/28/2021 08:13:17 03/24/20 21 03/25/2021 COMP. METAB OLIC PANEL (14) potassium 4.7 mmol/ L 3.5-5. 2 Not Available [facility] ([facility]) [address] [facility] [place], [address], 03/28/2021 08:13:17 03/24/20 21 03/25/2021 COMP. METAB OLIC PANEL (14) chloride 100 mmol/ L 96-106 Not Available [facility] ([facility]) [address] [facility] [place], [address], 03/28/2021 08:13:17 03/24/20 21 03/25/2021 COMP. METAB OLIC PANEL (14) carbon dioxide, total 24 mmol/ L 20-29 Not Available [facility] ([facility]) [address] [facility] [place], [address], 03/28/2021 08:13:17 03/24/20 21 03/25/2021 COMP. METAB OLIC PANEL (14) calcium 9.5 mg/dL 8.6-10 .2 Not Available [facility] ([facility]) [address] [facility] [place], [address], 03/28/2021 08:13:17 03/24/20 21 03/25/2021 COMP. METAB OLIC PANEL (14) protein, total 7.1 g/dL 6.0-8. 5 Not Available [facility] ([facility]) [address] [place], [address], 03/28/2021 08:13:17 03/24/20 21 03/25/2021 COMP. METAB OLIC PANEL (14) albumin 4.7 g/dL 3.7-4. 7 Not Available [facility] ([facility]) [address] [place], [address], 03/28/2021 08:13:17 03/24/20 21 03/25/2021 COMP. METAB OLIC PANEL (14) globulin, total 2.4 g/dL 1.5-4. 5 Not Available [facility] ([facility]) [address] [place], [address], 03/28/2021 08:13:17 03/24/20 21 03/25/2021 COMP. METAB OLIC PANEL (14) A/G ratio 2.0 1.2-2. 2 Not Available [facility] ([facility]) [address] [place], [address], 03/28/2021 08:13:17 03/24/20 21 03/25/2021 COMP. METAB OLIC PANEL (14) bilirubin, total 0.4 mg/dL 0.0-1. 2 Not Available [facility] ([facility]) [address] [place], [address], 03/28/2021 08:13:17 03/24/20 21 03/25/2021 COMP. METAB [...] 121 44 - 121 Not Available [facility] ([facility]) [address] [place], [address], 03/28/2021 08:13:17 03/24/20 21 03/25/2021 COMP. METAB OLIC PANEL (14) AST (SGOT) 26 IU/L 0-40 Not Available [facility] ([facility]) [address] [place], [address], 03/28/2021 08:13:17 03/24/20 21 03/25/2021 COMP. METAB OLIC PANEL (14) ALT (SGPT) 34 IU/L 0-44 Not Available [facility] ([facility]) [address] [place], [address], 03/28/2021 08:13:17 03/24/20 21 03/25/2021 UA WITH CULTU RE REFLE X specific gravity 1.019 1.005- 1.030 Not Available [facility] ([facility]) [address] [place], [address], 03/28/2021 08:13:18 03/24/20 21 03/25/2021 UA WITH CULTU RE REFLE X pH 6.0 5.0-7. 5 Not Available [facility] ([facility]) [address] [place], [address], 03/28/2021 08:13:18 03/24/20 21 03/25/2021 UA WITH CULTU RE REFLE X urine-color Yellow yellow Not Available [facility] ([facility]) [address] [place], [address], 03/28/2021 08:13:18 03/24/20 21 03/25/2021 UA WITH CULTU RE REFLE X appearance Clear clear Not Available [facility] ([facility]) [address] [facility], [place], [address], 03/28/2021 08:13:18 03/24/20 21 03/25/2021 UA WITH CULTU RE REFLE X WBC esterase Negati ve negati ve Not Available [facility] ([facility]) [address] [facility], [place], [address], 03/28/2021 08:13:18 03/24/20 21 03/25/2021 UA WITH CULTU RE REFLE X protein Negati ve negati ve/tra ce Not Available [facility] ([facility]) [address] [facility], [place], [address], 03/28/2021 08:13:18 03/24/20 21 03/25/2021 UA WITH CULTU RE REFLE X glucose Negati ve negati ve Not Available [facility] ([facility]) [address] [facility], [place], [address], 03/28/2021 08:13:18 03/24/20 21 03/25/2021 UA WITH CULTU RE REFLE X ketones Negati ve negati ve Not Available [facility] ([facility]) [address] [place], [address], 03/28/2021 08:13:18 03/24/20 21 03/25/2021 UA WITH CULTU RE REFLE X occult blood Trace negati ve abnormal Not Available [facility] ([facility]) [address] [place], [address], 03/28/2021 08:13:18 03/24/20 21 03/25/2021 UA WITH CULTU RE REFLE X bilirubin Negati ve negati ve Not Available [facility] ([facility]) [address] [facility], [place], [address], 03/28/2021 08:13:18 03/24/20 21 03/25/2021 UA WITH CULTU RE REFLE X urobilinogen ,semi-qn 0.2 mg/dL 0.2-1. 0 Not Available [facility] ([facility]) [address] [facility], [place], [address], 03/28/2021 08:13:18 03/24/20 21 03/25/2021 UA WITH CULTU RE REFLE X nitrite, urine Negati ve negati ve Not Available [facility] ([facility]) [address] [facility], [place], [address], 03/28/2021 08:13:18 03/24/20 21 03/25/2021 UA WITH CULTU RE REFLE X microscopic examination See below: Micro scopi c was indic ated and was perfo rmed. Not Available [facility] ([facility]) [address] [facility], [place], [address], 03/28/2021 08:13:18 03/24/20 21 03/25/2021 UA WITH CULTU RE REFLE X WBC None seen /hpf 0 - 5 Not Available [facility] ([facility]) [address] [facility], [place], [address], 03/28/2021 08:13:18 03/24/20 21 03/25/2021 UA WITH CULTU RE REFLE X RBC 0-2 /hpf 0 - 2 Not Available [facility] ([facility]) [address] [facility], [place], [address], 03/28/2021 08:13:18 03/24/20 21 03/25/2021 UA WITH CULTU RE REFLE X epithelial cells (non renal) None seen /hpf 0 - 10 Not Available [facility] ([facility]) [address] [facility], [place], [address], 03/28/2021 08:13:18 03/24/20 21 03/25/2021 UA WITH CULTU RE REFLE X epithelial cells (renal) LAP GRINDER Not Available [facility] ([facility]) [address], [place], [address], 03/28/2021 08:13:18 03/24/20 21 03/25/2021 UA WITH CULTU RE REFLE X casts None seen /lpf none seen Not Available [facility] ([facility]) [address], [place], [address], 03/28/2021 08:13:18 03/24/20 21 03/25/2021 UA WITH CULTU RE REFLE X cast type LAP GRINDER Not Available [facility] ([facility]) [address], [place], [address], 03/28/2021 08:13:18 03/24/20 21 03/25/2021 UA WITH CULTU RE REFLE X crystals LAP GRINDER Not Available [facility] ([facility]) [address], [place], [address], 03/28/2021 08:13:18 03/24/20 21 03/25/2021 UA WITH CULTU RE REFLE X crystal type LAP GRINDER Not Available [facility] ([facility]) [address], [place], [address], 03/28/2021 08:13:18 03/24/20 21 03/25/2021 UA WITH CULTU RE REFLE X mucus threads LAP GRINDER Not Available [facility] ([facility]) [address], [place], [address], 03/28/2021 08:13:18 03/24/20 21 03/25/2021 UA WITH CULTU RE REFLE X bacteria None seen none seen/f ew Not Available [facility] ([facility]) [address], [place], [address], 03/28/2021 08:13:18 03/24/20 21 03/25/2021 UA WITH CULTU RE REFLE X yeast LAP GRINDER Not Available [facility] ([facility]) [address] [place], [address], 03/28/2021 08:13:18 03/24/20 21 03/25/2021 UA WITH CULTU RE REFLE X trichomonas LAP GRINDER Not Available [facility] ([facility]) [address] [place], [address], 03/28/2021 08:13:18 03/24/20 21 03/25/2021 UA WITH CULTU RE REFLE X comment LAP GRINDER Not Available [facility] ([facility]) [address] [place], [address], 03/28/2021 08:13:18 03/24/20 21 03/25/2021 UA WITH CULTU RE REFLE X urinalysis reflex Commen t This speci men will not refle x to a Urine Cultu re. Not Available [facility] ([facility]) [address] [place], [address], 03/28/2021 08:13:18 03/24/20 21 03/25/2021 LIPID PANEL cholesterol, total 235 mg/dL 100-19 9 above high normal Not Available [facility] ([facility]) [address] [place], [address], 03/28/2021 08:13:19 03/24/20 21 03/25/2021 LIPID PANEL triglyceride s 157 mg/dL 0-149 above high normal Not Available [facility] ([facility]) [address] [place], [address], 03/28/2021 08:13:19 03/24/20 21 03/25/2021 LIPID PANEL HDL cholesterol 46 mg/dL >39 Not Available [facility] ([facility]) [address] [place], [address], 03/28/2021 08:13:19 03/24/20 21 03/25/2021 LIPID PANEL VLDL cholesterol concha 29 mg/dL 5-40 Not Available [facility] ([facility]) [address] [facility], [place], [address], 03/28/2021 08:13:19 03/24/20 21 03/25/2021 LIPID PANEL LDL chol calc ([facility]) 160 mg/dL 0-99 above high normal Not Available [facility] ([facility]) [address] [facility], [place], [address], 03/28/2021 08:13:19 03/24/20 21 03/25/2021 LIPID PANEL comment: LAP GRINDER Not Available [facility] ([facility]) [address] [facility], [place], [address], 03/28/2021 08:13:19 03/24/20 21 03/27/2021 THYRO ID STIMU LATIN G HORMO NE TSH-icma 1.6 uu/mL Refer ence Range : Non-P regna nt Adult 0.450 -4.50 0 Not Available [facility] [address] [facility], [place], [address], 03/28/2021 08:13:20 03/24/20 21 03/25/2021 PROST ATE-S [...] t be inter prete d as absol [place] evide nce of the prese nce or absen ce of cesario shelby se. Not Available [facility] ([facility]) [address] [facility], [place], [address], 03/28/2021 08:13:20 03/24/20 21 03/25/2021 VITAM IN [...] Basilia jacobs [place]: The Natio [facility] Press . 2. Graham pineda [place], Raffaele rasmussen [place], Nicky off-F sumit i FLORES, et al. Evalu ation , treat ment, and preve ntion of vitam in D defic iency : an Endoc rine Socie ty clini concha pract ice guide line. JCEM. 2010; 96(7) :1911 -30. Not Available [facility] ([facility]) [address] [facility], [place], [address], 03/28/2021 08:13:21 11/24/19 22 12/15/2021 SURGI CONCHA PATHO LOGY REPOR T results . ACCES LOGAN: 804-P S-[id number] 16 RESPO NSIBL E PATHO LOGIS T: [...] 11/26 10:44 EDT PKB Perfo [facility] at[facility] [address] [place] [address] Phone : Gross Descr iptio n A. [...] by [place]. [address] x 3 / / 11/25 17:33 EDT Clini concha Histo ry NA Not Available [facility] (Lab) [address], [place], [address], 12/15/2021 09:40:20 11/26/19 22 11/26/2021 SURGI CONCHA PATHO LOGY REPOR T results . ACCES LOGAN: 804-P S-[id number] 16 RESPO NSIBL E PATHO LOGIS T: [...] 11/26 10:44 EDT PKB Perfo [facility]med at: [facility] [address] [place] [address] Phone : [phone] Gross Descr iptio n A. Recei fausto [...] [place]. [address]60 x 3 / / 11/25 17:33 EDT Clini concha Histo ry NA Not Available [facility] (Lab) [address], [place], [address], 11/26/2021 10:44:08 05/20/2005/20/2021 MRI, prost ate, w/wo contr ast No observ ation record ed. [facility] ([facility]) [address] [place] [address], [phone], 05/22/2021 08:38:37 Result Notes None recorded. Problems Name Problem SNOMED Code Status Onset Date Resolution Date Notes Provider Name and Address Organization Details Recorded Time Allergic conjunctivitis 528972256 Active Nicolasa napoles [facility] [place] 8 13:23:11 Sleep apnea 15559222 Active 2016 Nicolasa napoles [facility] [place] 8 13:22:58 Vitamin D deficiency 09547577 Active 2016 Nicolasa napoles [facility] [place] 8 13:23:14 Osteoarthritis 353966684 Active 2016 Nicolasa Perdue null, [place] - [facility] [place] 8 13:23:18 Memory impairment 101394633 Active 2016 Nicolasa Perdue null[place] - [facility] [place] 7 15:52:18 Generalized anxiety disorder 38276914 Active 2017 Nicolasa Perdue null, [facility] [place] 8 13:45:01 Obesity 822294821 Active 2017 Nicolasa Perdue null, [facility] [place] 8 08:42:14 Basal cell carcinoma of skin 467870215 Active 2019 BAKARI RAHMAN MD [address], [address], [facility] - [facility] [place] 0 13:54:56 Skin lesion 56941441 Active 2021 BAKARI RAHMAN MD [address],[facility] [address], [place], [address], [facility] - 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 [place] 8 13:23:19 Gastroesophage al reflux disease 067447844 Active Nicolasa Perdue null[place] - [address] 8 13:23:08 Pain of hip region 55563651 Active Nicolasa Perdue null, [facility] [place] 8 13:23:25 Allergic rhinitis 75991988 Active Nicolasa Perdue [place] - [facility] [place] 8 13:23:16 Asthma 920564299 Active Nicolasa Per[place] - [facility] [place] 8 13:23:05 Pure hypercholester olemia 626693726 Active Nicolasa Perdue [place] - [facility] [place] 8 13:23:07 Problem Notes None recorded. Procedures Surgical History Date Name Laterality Status Provider Name and Address Organization Details Recorded Time 11/24/19 22 Blank Procedure Template completed BAKARI RAHMAN MD [address], [place], [address], [address] 11/23/2021 13:54:10 03/18/20 21 Medicare Wellness CPT Code, Subsequent completed Tracy Reagan, [address] 03/18/2021 13:13:01 03/17/20 20 Medicare Wellness CPT Code, Subsequent completed Tracy Reagan, [address] 03/17/2020 10:36:00 11/08/19 20 Telehealth Communication completed Liseth Le, [address] 11/08/2019 08:27:00 04/26/20 19 Removal of Foreign Body completed Raleigh Downey MD [address], [place], [address], [address] 04/26/2019 12:57:03 03/12/20 19 Medicare Wellness CPT Code, Subsequent completed Tracy Reagan, [address] 03/12/2019 10:10:40 03/07/20 18 Medicare Wellness CPT Code, Subsequent completed Sheri Collins, [address] 03/07/2018 13:19:38 02/10/20 17 Medicare Wellness CPT Code, Subsequent completed Scarlett Hanna, [address] 02/09/2017 13:16:21 07/20/19 17 Removal of foreign body - Eye completed Nicolasa Perdue [address] 07/20/2016 11:49:56 07/18/19 12 Colonoscopy completed Sheri Collins [address] 11/22/2016 09:39:16 hernia completed BAKARI RAHMAN MD [address], [place], [address], [address] 09/04/2019 13:51:45 Imaging Results Imaging Date Name Status LastModified by Organiz ation Details LastModified Time 05/20/2021 MRI, prostate, w/wo contrast completed [facility] [address] [place] [address], [address], 05/22/2021 08:38:37 Procedure Notes None recorded. Medical Equipment None Reported. Allergies Allergen ID Allergen Name Allergen Category Reaction Reaction Severity Criticality Documentation Date Start Date Code Code System Note Provider Name and Address Organization Details Recorded Time 200419 Product containin g 3-hydroxy -3-methyl glutaryl- coenzyme A reductase inhibitor (product) medicatio n other moderate Not available 01/12/2016 24049 009 SNOMED Palpi tatio ns Quique Stephenson [facility], [place] - [facility] [place] 6 14:54:04 Medications Name Sig Start Date [...] Not Available Not Available fluzone high-dose pf 8238-7591 .5 ml mehrdad active Not Available Not Available Not Available fluzone high-dose pf 5588-1145 .5 ml mehrdad active Not Available Not [...] Available polymyxin b sulfate/t rimethopr im sulfate 92925-3.1 unit/ml-% soln 02/09 completed Not Available Not [...] Not Available Not Available Not Available fluad 9082-3526 .5 ml mehrdad 06/11 completed Not Available Not Available Not Available sulfameth oxazole/t rimethopr im ds 800-160 mg tabs active Not Available Not Available Not Available hydrocodo ne/acetam inophen 5-325 mgtabs active Not Available Not Available Not Available fluzone high-dose pf 0562-9212 .5 ml mehrdad 06/03 completed Not Available [...] Not Available Not Available Not Available Flulaval 0171-8487 45 mcg (15 mcg x 3)/0.5 mL intramusc ular suspensio n active Not Available Not Available Not Available Anoro Ellipta 62.5 mcg-25 mcg/actua tion powder for inhalatio n Inhale 1 puff every day by inhalati on route for 90 days. 2015 active Not Available Not Available Not Avai lable Fluvirin 3609-8773 45 mcg (15 mcg x 3)/0.5 mL intramusc ular suspensio n INJECT 0.5 ML INTRAMUS CULARLY DIRECTED . active Not Available Not Available No t Available Fluzone High-Dose 2014- (PF) 180 mcg/0.5 mL intramusc ular syringe active Not Available Not Available Not Available Fluzone High-Dose 4356-3372 (PF) 180 mcg/0.5 mL intramusc ular syringe ADM 0.5ML IM UTD active Not Available Not Available No t Available Fluzone High-Dose 7125-1390 (PF) 180 mcg/0.5 mL intramusc ular syringe [...] Available Not Available Not Available Fluad Quad 7726-7413 (65yr up)(PF) 60 mcg (15 mcg x [...] Updated DateTime 1 163.83 cm 33.9 kg/m2 10814.2 7 g 45 /min 18 /min 98 [degF] 0 174 mm[Hg] 84 mm[Hg] MAURO Byrd [facility]14 [place] 13:22:04 Date Recorded Body height Body mass index (BMI) Body weight Heart rate Respiratory rate Body temperature Systolic blood pressure Diastolic blood pressure Provider Name and Address Organization Details Last Updated DateTime 163.83 cm 33.8 kg/m2 53958.4 7 g 87 /min 18 /min 97.9 [degF] 184 mm[Hg] 96 mm[Hg] Tracy Reagan [facility] [place] 14:04:53 Date Recorded Body height Provider Name an d Address Organization Details Last Updated DateTime 10/26/2021 163.83 cm Tima Decker [address] 10/26/2021 15:43:05 Date Recorded Body height Provider Name an d Address Organization Details Last Updated DateTime 11/23/2021 163.83 cm Tima Decker [address] 11/23/2021 13:16:30 Date Recorded Body height Provider Name an d Address Organization Details Last Updated DateTime 03/26/2022 163.83 cm Georgina Fish LPN [address] 03/26/2022 15:27:17 Social History Question Answer Notes LastModified by Organizat ion Details LastModified Time Tobacco Smoking Status Former Smoker Quit 1962 Aury Sandoval CMA [address] 09/04/2019 13:22:36 Do You Have An Advance Directive? No Information not available 02/09/2017 Are You Blind Or Do You Have Difficulty Seeing? No Information not available 02/09/2017 What Is Your Level Of Caffeine Consumption? None Information not available 03/18/2021 Are You Deaf Or Do You Have Serious Difficulty Hearing? No Information not available 02/09/2017 What Type Of Diet Are You Following? REGULAR [email or web address] Information not available 02/16/2013 When Did You Quit Smoking? 1-5yearssinc elastcigaret te [email or web address] Information not available 03/18/2021 Live Alone Or With Others? With Others [email or web address] Information not available 04/23/2013 Do You Feel Safe At Home? 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 No [email or web address] Information not available 03/18/2021 What Was The Date Of Your Most Recent Tobacco Screening? 11/23/2021 [email or web address] Information not available 11/23/2021 How Many Children Do You Have? 2 Information not available 12/25/2013 What Is Your Current Pack Years? 10packyears [email or web address] Information not available 03/18/2021 Seat Belts Used Routinely Yes Information not available 02/09/2017 Smoke Alarm In Home Yes Information not available 02/09/2017 At What Age Did You Start Smoking Tobacco? 16 Information not available 12/25/2013 How Much Tobacco Do You Smoke? 0.5 PPD Information not available 09/04/2019 General Stress Level Low [email or web address] Information not available 02/16/2013 Do You Use Sunscreen Routinely? No Information not available 02/09/2017 Has Tobacco Cessation Counseling Been Provided? No [email or web address] Information not available 03/18/2021 How Many Years Have You Smoked Tobacco? 2 [email or web address] Information not available 09/04/2019 Sex: Unknown Functional Status Question Answer Note LastModified by Organizat ion Details LastModified Time How many times per week do you consume alcohol? 1-2 times per week Information not available 03/18/2021 Do you use any illicit or recreational drugs? No [email or web address] Information not available 03/18/2021 Do you or have you ever used any other forms of tobacco or nicotine? No [email or web address] Information not available 03/18/2021 What is your level of alcohol consumption? Occasional [email or web address] Information not available 02/16/2013 Do you have difficulty walking or climbing stairs? No Information not available 02/09/2017 Do you have difficulty doing errands alone? 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 No Information not available 02/09/2017 What is your exercise level? Occasional [email or web address] Information not available 02/16/2013 Mental Status Question Answer Note LastModified by Organization D etails LastModified Time Do you have difficulty concentrating, remembering or making decisions? No Information no t available 02/09/2017 Family History Relationship Description Onset Age of this Age Resolved Age Notes LastModified by Organization Details LastModified Time Brother Alive [email or web address] Not available 07/22/2016 16:28:24 Father Chronic cerebrovascu lar accident 71 [email or web address] Not available 11/2016 16:28:24 Mother Old-age 87 [email or web address] Not available 07/22/2016 16:28:24 Notes:2 children alive and w ell Medical History Condition Response Asthma Y GERD/Reflux Y Hepatitis Y Hyperlipidemia Y Immunizations Vaccine Type Date Status Note Provider Nam e and Address Organization Details Recorded Time Influenza, split virus, trivalent, preservative 4 completed Liseth Le RMA null, [address] 06/11/2019 13:01:11 Influenza, high-dose, trivalent, PF 5 completed Not Available [facility] 08/18/2019 02:11:28 Pneumococcal conjugate PCV 13 5 completed Tracy Reagan RMA null, [facility] [place] 03/18/2021 13:14:30 zoster live 0 completed Tracy Reagan RMA null, [address] 03/18/2021 13:14:31 pneumococcal, unspecified formulation 0 completed Tracy Reagan RMA null, [facility] [place] 03/18/2021 13:14:30 Influenza, split virus, trivalent, preservative 3 completed Tracy Reagan RMA null, [facility] [place] 03/18/2021 13:14:31 tetanus toxoid, unspecified formulation 0 completed Tracy Reagan RMA null, [facility] [place] 03/18/2021 13:14:30 Influenza, split virus, trivalent, preservative 4 completed Tracy Reagan RMA null, [address] 03/18/2021 13:14:30 pneumococcal, unspecified formulation 0 completed Scarlett Jacques, [employer] null, [address] 02/09/2017 13:19:19 tetanus toxoid, unspecified formulation 0 completed Scarlett Jacques, [employer] null, [address] 02/09/2017 13:19:19 Influenza, split virus, trivalent, preservative 3 completed Scarlett Jacques, [employer] null, [address] 02/09/2017 13:19:19 Influenza, split virus, quadrivalent, preservative 3 completed Not Available [facility] 08/18/2019 02:11:10 Influenza, split virus, trivalent, preservative 4 completed Not Available [facility] 08/18/2019 02:11:10 Influenza, split virus, trivalent, preservative 2 completed Not Available [facility] 08/18/2019 02:11:10 zoster live 0 completed Scarlett Jacques, [employer] null, [address] 02/09/2017 13:19:19 Past Encounters Encounter ID Performer Location Encounter Start Date Encounter Closed Date Diagnosis/Indication Diagnosis SNOMED-CT Code Diagnosis ICD10 Code Diagnosis Note [id number] [facility] [address] [place] [address] 01/29/2013 15:24:44 01/30/2013 09:26:15 [id number] [facility] [address] [place] [address] 04/23/2013 15:19:32 04/23/2013 16:51:22 Fatigue [id number] [facility] [id number] [facility] [address] [place] [address] 06/04/2013 10:16:56 06/04/2013 12:45:31 Lipoma of skin 856382075 [id number] [facility] [address] [place] [address] 06/18/2013 15:46:39 06/19/2013 09:56:43 Lipoma of skin 447523944 [id number] [facility] [address] [place] [address] 11/19/2013 15:54:48 11/19/2013 16:58:21 Asthma 602417941 Acute bronchitis 49305052 Cough 87953124 [id number] [facility] [address] [place] [address] 12/25/2013 13:05:51 12/26/2013 16:36:58 Pure hypercholesterolemia 167414882 Adult heal th examination 909372589 Pain of hip region 50944725 Sleep apnea 48899327 Allergic rhinitis 14330275 Gastroesop hageal reflux disease 798120857 Body mass index 30+ - obesity 017693235 Screening for malignant neoplasm of rectum 260647993 [id number] [facility] [address] [place] [address] 04/04/2014 13:07:47 04/04/2014 14:33:36 Allergic rhinitis 29456174 Skin lesion 54711456 [id number] [facility] [address] [place] [address] 01/07/2015 13:02:06 01/07/2015 17:27:58 Adult health examination 849545081 Asthma 602573099 Sleep apnea 96518619 Memory impairment 308999804 Body mass index 30+ - obesity 546696622 Administra tion of pneumococcal vaccine 07912246 Screening for malignant neoplasm of rectum 230445798 [id number] [facility] [address] [place] [address] 01/28/2015 10:44:03 01/28/2015 11:23:40 Pure hypercholesterolemia 453358872 Medication monitoring 504430966 [id number] [facility] [address] [place] [address] 04/01/2015 10:00:35 04/01/2015 17:36:22 Pure hypercholesterolemia 150958190 Senile hyperkeratosis 640207631 [id number] Jacki Mayen MD [facility] [address] [facility] [place] [address] 07/07/2015 13:07:15 07/07/2015 14:00:36 Sleep apnea 20151915 G47.30 Obesity 992670507 E66.9 [id number] Jcaki Mayen MD [facility] [address] [place] [address] 08/07/2015 13:29:36 08/07/2015 15:17:15 Upper respiratory infection 12647604 J06.9 Cough 01419559 R05 [id number] Jacki Mayen MD [facility] [address] [facility] [place] [address] 09/18/2015 14:21:19 09/18/2015 16:17:56 Pain in thumb 614554266 M79.645 Hand pain 48503681 M79.6 42 [id number] [facility] [address] [facility] [place] [address] 10/08/2015 08:56:56 10/08/2015 11:29:36 Asthma 572736450 J45.909 Allergic rhinitis 417453 04 J30.9 Cough 21758929 R05 Allergic conjunctivitis 278282312 H10.13 Acute bronchitis 9422561 2 J20.9 [id number] Jacki Mayen MD [facility] [address] [place] [address] 11/20/2015 14:08:59 11/20/2015 15:42:38 Allergic rhinitis 33731535 J30.9 Allergic conjunctivitis 945603883 H10.13 Asthma 423485752 J45.90 9 [id number] [facility] [address] [place] [address] 12/08/2015 09:00:19 12/08/2015 13:22:40 Tinea sherriuris 433669438 B35.6 [id number] [facility] [address] [place] [address] 01/12/2016 12:58:53 01/12/2016 16:35:25 Adult health examination 184400598 Z00.01 Z72.89 Z79.899 N42.9 Z12.5 E78.5 E55.9 Fatigue 12266466 R53.83 Poor short -term memory 894877697 R41.3 Acute félix l impairment 024976958 N28.9 Essential hypertension 72330200 I10 Screening for malignant neoplasm of rectum 299648051 Z12.12 Pain in thumb 846300273 M79.645 Hypercholesterolemia 136 45006 E78.0 Sleep apnea 04567007 G47 .30 [id number] [facility] [address] [place] [address] 02/11/2016 10:45:29 02/11/2016 13:36:44 Essential hypertension 89452643 I10 Hypogonadism 49591725 E2 9.1 [id number] [facility] [address] [place] [address] 03/04/2016 15:27:05 03/04/2016 16:45:58 Tinea marilee 858516170 B35.6 Palpitations 96810524 R0 0.2 [id number] [facility] [address] [place] [address] 03/11/2016 10:00:58 03/11/2016 15:30:44 Palpitations 92313965 R00.2 [id number] [facility] [address] [place] [address] 04/14/2016 14:46:03 04/14/2016 16:43:04 Premature atrial contraction 801365382 I49.1 Ventricula r premature beats 16054229 I49.3 Transient cerebral ischemia 147507416 G45.9 [id number] Robert Hernandez MD [facility] [place] [facility] [address] [facility] [address] [place] [address] 05/24/2016 15:03:00 05/24/2016 16:02:33 [id number] Jacki Mayen MD [facility] [address] [place] [address] 06/29/2016 14:05:17 06/29/2016 16:19:26 Acute bronchitis 97965359 J20.9 Asthma 002513013 J45.90 9 Cough 10838758 R05 [id number] Jacki Mayen MD [facility] [address] [place] [address] 07/20/2016 11:13:42 07/20/2016 14:25:53 Foreign body in eye 6266226688 69040 H44.339 [id number] Jacki Mayen MD [facility] [address] [place] [address] 07/22/2016 15:23:30 07/22/2016 16:58:21 [facility] [id number] H00.13 [id number] Jacki Mayen MD [facility] [address] [place] [address] 02/09/2017 12:14:27 02/09/2017 15:00:48 Adult health examination 625895171 Z00.00 Screening for disorder 903858831 Z13.9 Sleep apnea 79584741 G47 .30 Adverse re action to drug 31522812 T88.7XXA On Zocor- feels bad Pain in right foot 04061 43115 63834 M79.671 Vitamin D deficiency 347 02426 E55.9 Osteoarthritis 477458748 M19.90 Poor short -term memory 777365182 R41.3 Impotence 249845792 N52. 9 Screening for malignant neoplasm of colon 914817962 Z12.11 [id number] Jacki Mayen MD [facility] [address] [place] [address] 06/03/2017 10:23:50 06/03/2017 13:16:31 Obesity 980869368 E66.9 Poor short -term memory 105007209 R41.3 [id number] [facility] [address] [place] [address] 07/06/2017 15:44:58 07/06/2017 16:36:07 Memory impairment 591700047 R41.3 Medication monitoring 39 0428196 Z51.81 Obesity 333301392 E66.9 Impotence 109723372 N52. 9 [id number] Jacki Mayen MD [facility] [address] [facility] [address] 10/12/2017 09:57:08 10/12/2017 10:43:43 Essential hypertension 50880317 I10 Candidiasis of skin 4988 3006 B37.2 Generalize d anxiety disorder 62385511 F41.1 Allergic rhinitis 616446 04 J30.9 [id number] Jacki Mayen MD [facility] [address] [facility] [place] [address] 12/21/2017 15:14:38 12/21/2017 16:10:50 Difficulty maintaining weight loss 624997973 E66.9 Obesity 087110647 E66.9 [id number] Jacki Mayen MD [facility] [address] [facility] [place] [address] 03/07/2018 13:15:21 03/07/2018 15:22:34 Adult health examination 535006168 Z00.00 Screening for disorder 027531196 Z13.89 Obesity 159057307 E66.9 Pure hypercholesterolemia 926505237 E78.00 Gastroesop hageal reflux disease 677987221 K21.9 Vitamin D deficiency 347 62607 E55.9 Asthma 064585441 J45.90 9 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 Generalize d anxiety disorder 19182497 F41.1 Sleep apnea 28765438 G47 .30 Screening for malignant neoplasm of colon 372230382 Z12.11 Z12.12 [id number] Jacki Mayen MD [facility] [address] [place] [address] 05/16/2018 08:17:50 05/16/2018 11:06:26 Obesity 181311191 E66.9 Sleep apnea 13329861 G47 .30 [id number] Jacki Mayen MD [facility] [address] [place] [address] 06/16/2018 10:07:32 06/16/2018 11:19:36 Gout 55335495 M10.9 Memory impairment 233275 006 R41.3 [id number] Jacki Mayen MD [facility] [address] [place] [address] 08/14/2018 09:26:24 08/14/2018 12:32:33 Generalized anxiety disorder 94273184 F41.1 Memory impairment 074155 006 R41.3 Palpitations 15011595 R0 0.2 [id number] Jacki Mayen MD [facility] [address] [place] [address] 09/04/2018 11:02:21 09/04/2018 13:03:57 Allergic rhinitis 23183227 J30.9 Palpitations 24277926 R0 0.2 Memory impairment 452610 006 R41.3 [id number] Jacki Mayen MD [facility] [address] [place] [address] 10/13/2018 14:18:19 10/13/2018 16:54:25 Ventricular tachycardia 47062541 I47.2 Palpitations 17628742 R0 0.2 Lesion of skin of face 7441782040 06 L98.9 [id number] Jacki Mayen MD [facility] [address] [place] [address] 11/30/2018 09:28:23 11/30/2018 13:21:54 Nonsustained ventricular tachycardia 302586021 I47.2 Left ventr icular hypertrophy 62793791 I51.7 Memory impairment 928050 006 R41.3 Insomnia 454678948 G47.0 0 Allergic rhinitis 380828 04 J30.9 [id number] Jacki Mayen MD [facility] [address] [place] [address] 12/28/2018 13:20:03 12/28/2018 15:21:08 Candidiasis of skin 96838750 B37.2 Memory impairment 480545 006 R41.3 Wound of skin 449957474 T14.8XXA Osteoarthr itis of joint of hand 05445852 M19.050 [id number] Jacki Mayen MD [facility] [address] [place] [address] 03/02/2019 14:32:33 03/02/2019 16:21:35 Impetigo 55006096 L01.00 [id number] Jacki Mayen MD [facility] [address] [place] [address] 03/12/2019 09:36:33 03/12/2019 13:19:23 Adult health examination 218005357 Z00.00 Screening for disorder 531198285 Z13.89 Depression screening 171 086989 Z13.31 Pure hypercholesterolemia 728655901 E78.00 Essential hypertension 86539419 I10 Fatigue 34888409 R53.83 Screening for malignant neoplasm of prostate 968967107 Z12.5 Memory impairment 084983 006 R41.3 Medication monitoring 39 4907258 Z51.81 Generalize d anxiety disorder 81655228 F41.1 Low back pain 922752573 M54.5 Pain in right thumb 1076 932767 690898 M79.644 Dementia 32449261 F03.90 Asthma 940867323 J45.90 9 Screening for malignant neoplasm of colon 685713927 Z12.11 Z12.12 [id number] [facility] [address] [place] [address] [place] [address] 04/16/2019 08:58:10 04/16/2019 10:23:22 Pain in thumb 196256082 M79.448 [id number] Raleigh Downey MD [facility] [address] [place] [address] 04/26/2019 12:09:46 04/26/2019 13:01:13 Retained foreign body in eye 93659586 H44.709 flushed clear [id number] Jacki Mayen MD [facility] [address] [place] [place] [address] 06/04/2019 13:05:17 06/04/2019 15:30:04 Ingrowing nail 467551752 L60.0 [id number] Jacki Mayen MD [facility] [address] [facility] [address] [place] [address] 06/11/2019 12:46:50 06/11/2019 14:29:07 Pain of hip region 06198853 M25.559 Hand pain 70247716 M79.6 41 M10.9 Fatigue 09638274 R53.83 Nausea 889600527 R11.0 Abdominal pain 17428911 R10.9 Indigestion 244148865 K3 0 Dementia 18993438 F03.90 Anxiety 78097405 F41.9 Muscle weakness 40463867 M62.81 [id number] Jacki Mayen MD [facility] [address] [place] [facility] [address] 06/21/2019 10:37:40 06/21/2019 13:07:55 Fatigue 31258749 R53.83 Abdominal pain 16181712 R10.9 Muscle weakness 42098709 M62.81 [id number] [facility] [address] [place] [address] 06/29/2019 11:09:30 06/29/2019 14:23:48 Postoperative wound infection 84878491 T81.40XA right hand [id number] Jacki Mayen MD [facility] [address] [place] [address] 07/26/2019 12:50:00 07/26/2019 13:52:47 Pain in throat 968153980 R07.0 Pharyngitis 558324317 J0 2.9 Lesion of skin of face 3151300381 06 L98.9 [id number] BAKARI RAHMAN MD [facility] [address] [place] [address] 09/04/2019 12:42:04 09/04/2019 13:39:11 Basal cell carcinoma of skin [id number] C44.91 [id number] Jakci Mayen MD [facility] [address] [place] [address] [facility] [address] [place] [address] 09/11/2019 15:07:19 09/11/2019 16:27:39 Asthma 952715615 J45.909 Poor short -term memory 948574347 R41.3 [id number] Jacki Mayen MD [facility] [address] [place] [address] [place] [address] 11/08/2019 08:14:39 11/08/2019 09:38:58 Acute gastroenteritis 69658349 K52.9 Nausea and vomiting 1693 2000 R11.2 [id number] Jacki Mayen MD [facility] [address] [place] [address] [place] [address] 12/11/2019 14:05:02 12/11/2019 15:39:56 Abdominal pain 74495917 R10.9 Nausea 131756915 R11.0 Muscle weakness 35318772 M62.81 Fatigue 59177946 R53.83 Diarrhea 00293174 R19.7 Gastritis 6631685 K29.70 Dizziness 780422353 R42 [id number] BAKARI RAHMAN MD [facility] [address] [place] [address] 12/14/2019 14:08:04 12/14/2019 14:41:59 Basal cell carcinoma of skin 907113417 C44.91 [id number] Jacki Mayen MD [facility] [address] [facility] [address] [place] [address] 01/15/2020 10:37:28 01/15/2020 12:40:42 Gastroesophageal reflux disease 417186266 K21.9 Gastric ulcer 486919281 K25.9 Abdominal pain 51921827 R10.9 [id number] Jacki Mayen MD [facility] [address] [address] 03/10/2020 08:18:12 03/10/2020 13:09:14 Pain in both feet 3032857220 8261899 M79.671 M79.672 Testicular hypofunction 311853156 E29.1 Pure hypercholesterolemia 535989254 E78.00 Vitamin D deficiency 347 97774 E55.9 Fatigue 31260371 R53.83 Pain in left knee 903346 7357 46172 M25.562 [id number] [facility] [address] [address] 03/17/2020 13:03:43 03/17/2020 14:59:03 Adult health examination 118429219 Z00.00 Screening for disorder 541338903 Z13.89 Depression screening 171 848065 Z13.31 Gastroesop hageal reflux disease 156199628 K21.9 Generalize d anxiety disorder 54893466 F41.1 Medication monitoring 39 2411438 Z51.81 Asthma 924112943 J45.90 9 Dementia 61197822 F03.90 [id number] [facility] [address] [address] [address] 03/27/2020 15:03:52 03/27/2020 15:37:08 Pain in left knee 6792144536 15719 M25.562 [id number] [facility] [address] [address] 04/17/2020 15:50:16 04/17/2020 16:45:04 Prostate specific antigen above reference range 658925366 R97.20 Prostate mass 439068701 R19.09 [id number] Jacki Mayen MD [facility] [address] [place] [address] 07/14/2020 14:09:45 07/14/2020 16:03:43 Onychomycosis 933266083 B35.1 [id number] [facility] [address] [place] [address] 08/04/2020 11:04:06 08/04/2020 12:41:31 Polyp of colon 10709455 K63.5 Pruritus ani 52937732 L2 9.0 [id number] [facility] [address] [place] [address] 08/11/2020 15:48:23 08/11/2020 17:03:27 Dark stools 03900119 R19.5 Tinea cruris 660432228 B 35.6 [id number] Jacki Mayen MD [facility] [address] [place] [address] 08/20/2020 13:30:52 08/20/2020 14:43:47 Onychomycosis 481086893 B35.1 Asthma 623667305 J45.90 9 Essential hypertension 94149942 I10 [id number] [facility] [address] [place] [address] 08/25/2020 13:30:52 08/25/2020 15:10:46 Peptic ulcer 14060311 K27.9 Indigestion 103167775 K3 0 Nausea 975770562 R11.0 [id number] [facility] [address] [place] [address] 09/23/2020 13:30:49 09/23/2020 15:53:09 Peptic ulcer 88414485 K27.9 Gastroesop hageal reflux disease without esophagitis 581250958 K21.9 [id number] [facility] [address] [place] [address] [place] [address] 12/24/2020 13:36:18 12/24/2020 16:07:51 Gastroesophageal reflux disease 111239519 K21.9 Tinea corporis 97801919 B35.4 [id number] Jacki Mayen MD [facility] [address] [place] [address] 03/18/2021 12:49:08 03/18/2021 14:19:00 Adult health examination 028818455 Z00.00 Screening for disorder 539040443 Z13.89 Depression screening 171 133852 Z13.31 Pure hypercholesterolemia 069116529 E78.00 Vitamin D deficiency 347 28948 E55.9 Testicular hypofunction 564362840 E29.1 Fatigue 48279789 R53.83 Gastroesop hageal reflux disease 508072092 K21.9 Memory impairment 161225 006 R41.3 Obesity 733172435 E66.9 Essential hypertension 91572901 I10 [id number] Jacki Mayen MD [facility] [address] [place] [address] 04/10/2021 13:50:11 04/10/2021 15:03:21 Constipation 82894091 K59.00 [id number] BAKARI RAHMAN MD [facility] [address] [facility] [address] [place] [address] 10/26/2021 15:25:17 10/26/2021 16:02:03 Basal cell carcinoma of skin 490929800 C44.91 Skin lesion 70799409 L98 .9 [id number] BAKARI RAHMAN MD [facility] [address] [facility] [address] [place] [address] 11/23/2021 13:11:11 11/23/2021 13:45:52 Basal cell carcinoma of skin 275057305 C44.91 Skin lesion 67122085 L98 .9 [id number] BAKARI RAHMAN MD [facility] [address] [facility] [address] [place] [address] 03/26/2022 15:17:14 03/26/2022 15:27:56 Basal cell carcinoma of skin 976138339 C44.91 Health Concerns Section Related Observation LastModified by Organization Detai ls LastModified Time None Recorded Concern Status LastModified by Organization Details LastModified Time None Recorded Advance Directives Directive N: Payers Insurance Date Sequence Insurance Name Policy Number Policy Glass Covered Member ID Glass Member ID Guarantor Name 03/29/2022 1 [employer] (MEDICARE REPLACEMENT HMO) Oswaldo Young [id number] Oswaldo Young Notes Date Note Type [...] memory and asthma Jacki Mayen MD [address] Formerly named [facility], [place], [address], [facility] [place] 03/18/2021 14:22:16 04/10/2021 text/html This patient is [...] to his colon Jacki Mayen MD [address], [place], [address], [facility] [place] 04/10/2021 21:06:05 10/26/2021 text/html the patient repo [...] not becoming pathologic. BAKARI RAHMAN MD [address], [place], [address], [facility] [place] 10/26/2021 16:24:17 11/23/2021 text/html The patient came in today for removal of the basal cell carcinoma from his right cheek. He also came for biopsy of the lesion on the medial cheek and the right side of the nose. BAKARI RAHMAN MD [address], [place], [address], [facility] [place] 11/23/2021 13:58:19 03/26/2022 text/html The patient was concerned about some mild erythema on his right cheek surgical site. No fevers or chills. No drainage. BAKARI RAHMAN MD [address], [place], [address], [facility] [place] 03/26/2022 15:32:20
--- OUTSIDE RECORDS SUMMARY | 2024-11-27 13:20 | XMS_ITS | Data Portability ---
Author Organization [place] [facility], [facility] Address [address] [place] [address] Care Team Providers Care Extrusion Former Name Role Phone JACKI MAYEN Primary Care Provider [phone] Assessment Encounter Date Assessment Date Assessment LastModified by Organization Details LastModified Time 08/06/2021 08/06/2021 Uncle by ptosis of the right first fingernail debridement with Croatian toenail lateral and binocular microscope down to healthy tissue local care including vinegar or what ever drops he got at the pharmacy but Lamisil 250 daily for 90 days. Reassess in 3 months to see if it is better [email or web address] Not available 08/06/2021 12:41:02 08/20/2021 08/20/2021 Basal cell carcinoma the face recommend plastic surgical removal other lesions are benign. Make necessary referral [email or web address] Not available 08/20/2021 14:35:09 03/24/2022 03/24/2022 1. [...] office. Follow up other ansari as needed. [email or web address] Not available 03/24/2022 14:01:11 Plan of Treatment Reminders Order Date Submit Date Provider Last Modified By Organization Details Last Modified Time Details Appointments None recorded. Lab noninvasive colorectal cancer DNA + occult blood screening, QL, stool 2021 Second Decimal (Cologuard Orders Only), [address], [address], [place], [address], 22:18:26 Referral urologist referral - Please call the patient to schedule an appointment . 2021 022 [id number] Ricki Ellis MD ([facility]), [address] [place] [address] Rd, [address], [place], [address], 14:53:17 plastic surgeon referral - please call pt to schedule appointment 2021 022 [email or web address] 15 Derian Lopez MD, [address] [place] [address], [facility] [address], [address], 16:27:18 Procedures None recorded. Surgeries None recorded. Imaging None recorded. Medication Orders terbinafine HCl 250 mg tablet 2021 022 [id number] [id number], [address], [address], 10:51:20 Patient TargetsNo targets recorded. Patient Instructions Encounter Date Encounter Id Patient Instructions Last Modified By Organization Details Last Modified Time 03/24/2022 [id number] advance directives: care instructions [email or web address] Not available 03/24/2022 14:01:45 learning about living stokes [email or web address] Not available 03/24/2022 14:01:45 do not rescuscitate education [email or web address] Not available 03/24/2022 14:01:45 Advance Directives Education w/sample forms for Living Will/Health Care Surrogate [email or web address] Not available 03/24/2022 14:01:45 Reason for Referral [...] of 10,00 0 indiv idual s at [facility] risk for color ectal cance r [...] asymp tomat ic indiv idual s at [facility] risk for color ectal cance r. Follo wing a negat hermelindo Colog uard resul t, the Ameri can Cance r Socie ty and U.S. Multi -Soci ety Task Force scree ryan guide lines recom mend a Colog uard re-sc stephna rodriguez inter keaton of 3 years . [...] 112:1 016-1 030. TEST DESCR IPTIO N: [place] site algor ithmi c kylee sis of [...] years or older , who are at [facility] for color ectal cance r (CRC) . Colog uard has been appro fausto for use by the U.S. FDA. The perfo rmanc e of Colog uard was estab lishe d in a cross secti onal study of [facility] adult s aged 50-84 . Colog [...] study of 0 indiv idual s at [facility] risk for color ectal cance r [...] at [email or web address] [email or web address] [email or web address] om. Not Available [facility] (Cologuard Orders Only) [address], [place], [address], 09/06/2021 22:18:26 03/17/20 22 03/17/2022 URINA LYSIS , COMPL ETE W/ REFLE X TO CULTU RE urinalysis reflex COMMEN T This speci men will not refle x to a Urine Cultu re. Not Available [facility] [address] [place], [place] [address]y [address], [place], [address], 03/18/2022 06:09:13 03/17/20 22 03/18/2022 URINA LYSIS , COMPL ETE W/ REFLE X TO CULTU RE specific gravity 1.020 1.005- 1.030 normal Not Available [facility] [address] [place], [place] [address]y [address], [place], [address], 03/18/2022 06:09:13 03/17/20 22 03/18/2022 URINA LYSIS , COMPL ETE W/ REFLE X TO CULTU RE pH 5.5 5.0-7. 5 normal Not Available [facility] [address] [place], [place] [address]y [address], [place], [address], 03/18/2022 06:09:13 03/17/20 22 03/18/2022 URINA LYSIS , COMPL ETE W/ REFLE X TO CULTU RE urine-color YELLOW yellow normal Not Available [facility] [address] [place], [place] [address]y [address], [place], [address], 03/18/2022 06:09:13 03/17/20 22 03/18/2022 URINA LYSIS , COMPL ETE W/ REFLE X TO CULTU RE appearance CLEAR clear normal Not Available [facility] [address] [facility] [address], [place], [address], 03/18/2022 06:09:13 03/17/20 22 03/18/2022 URINA LYSIS , COMPL ETE W/ REFLE X TO CULTU RE WBC esterase NEGATI VE negati ve normal Not Available [facility] [address] [place], [place] [address]y [address], [place], [address], 03/18/2022 06:09:13 03/17/20 22 03/18/2022 URINA LYSIS , COMPL ETE W/ REFLE X TO CULTU RE protein TRACE negati ve/tra ce normal Not Available [facility] [address] [facility] [address], [place], [address], 03/18/2022 06:09:13 03/17/20 22 03/18/2022 URINA LYSIS , COMPL ETE W/ REFLE X TO CULTU RE glucose NEGATI VE negati ve normal Not Available [facility] [address] [facility] [address], [place], [address], 03/18/2022 06:09:13 03/17/20 22 03/18/2022 URINA LYSIS , COMPL ETE W/ REFLE X TO CULTU RE ketones NEGATI VE negati ve normal Not Available [facility] [address], [place], [address], 03/18/2022 06:09:13 03/17/20 22 03/18/2022 URINA LYSIS , COMPL ETE W/ REFLE X TO CULTU RE occult blood TRACE negati ve abnormal Not Available [facility] [address] [place], [address], 03/18/2022 06:09:13 03/17/20 22 03/18/2022 URINA LYSIS , COMPL ETE W/ REFLE X TO CULTU RE bilirubin NEGATI VE negati ve normal Not Available [facility] [address] [facility] [address] [place], [address], 03/18/2022 06:09:13 03/17/20 22 03/18/2022 URINA LYSIS , COMPL ETE W/ REFLE X TO CULTU RE urobilinogen ,semi-qn 0.2 mg/dL 0.2-1. 0 normal Not Available [facility] [address] [facility] [address], [place], [address], 03/18/2022 06:09:13 03/17/20 22 03/18/2022 URINA LYSIS , COMPL ETE W/ REFLE X TO CULTU RE nitrite, urine NEGATI VE negati ve normal Not Available [facility] [address], [place], [address], 03/18/2022 06:09:13 03/17/20 22 03/18/2022 URINA LYSIS , COMPL ETE W/ REFLE X TO CULTU RE microscopic examination SEE BELOW: normal Micro scopi c was indic ated and was perfo rmed. Not Available [facility] [address] [facility] [address], [place], [address], 03/18/2022 06:09:13 03/17/20 22 03/18/2022 URINA LYSIS , COMPL ETE W/ REFLE X TO CULTU RE WBC 0-5 /hpf 0 - 5 normal Not Available [facility] [address] [place], [address], 03/18/2022 06:09:13 03/17/20 22 03/18/2022 URINA LYSIS , COMPL ETE W/ REFLE X TO CULTU RE RBC 3-10 /hpf 0 - 2 abnormal Not Available [facility] [address] [facility] [address], [place], [address], 03/18/2022 06:09:13 03/17/20 22 03/18/2022 URINA LYSIS , COMPL ETE W/ REFLE X TO CULTU RE epithelial cells (non renal) NONE SEEN /hpf 0 - 10 normal Not Available [facility] [address] [facility] [address], [place], [address], 03/18/2022 06:09:13 03/17/20 22 03/18/2022 URINA LYSIS , COMPL ETE W/ REFLE X TO CULTU RE casts NONE SEEN /lpf none seen normal Not Available [facility] [address], [place], [address], 03/18/2022 06:09:13 03/17/20 22 03/18/2022 URINA LYSIS , COMPL ETE W/ REFLE X TO CULTU RE bacteria NONE SEEN none seen/f ew normal Not Available [facility] [address] [facility] [address], [place], [address], 03/18/2022 06:09:13 03/17/20 22 03/18/2022 CBC W/ AUTOD IFF, COMPL ETE BLOOD COUNT WBC 10.5 x10e3 /uL 3.4-10 .8 normal Not Available [facility] [address] [place], [place] [address]y [address], [place], [address], 03/18/2022 08:11:26 03/17/20 22 03/18/2022 CBC W/ AUTOD IFF, COMPL ETE BLOOD COUNT RBC 4.92 x10e6 /uL 4.14-5 .80 normal Not Available [facility] [address] [place], [place] [address]y [address], [place], [address], 03/18/2022 08:11:26 03/17/20 22 03/18/2022 CBC W/ AUTOD IFF, COMPL ETE BLOOD COUNT hemoglobin 15.2 g/dL 13.0-1 7.7 normal Not Available [facility] [address] [place], [address], 03/18/2022 08:11:26 03/17/20 22 03/18/2022 CBC W/ AUTOD IFF, COMPL ETE BLOOD COUNT hematocrit 46.2 % 37.5-5 1.0 normal Not Available [facility] [address] [place], [place] [address]y [address], [place], [address], 03/18/2022 08:11:26 03/17/20 22 03/18/2022 CBC W/ AUTOD IFF, COMPL ETE BLOOD COUNT MCV 94 fL 79-97 normal Not Available [facility], [place], [address], 03/18/2022 08:11:26 03/17/20 22 03/18/2022 CBC W/ AUTOD IFF, COMPL ETE BLOOD COUNT MCH 30.9 pg 26.6-3 3.0 normal Not Available [facility] [address], [place], [address], 03/18/2022 08:11:26 03/17/20 22 03/18/2022 CBC W/ AUTOD IFF, COMPL ETE BLOOD COUNT MCHC 32.9 g/dL 31.5-3 5.7 normal Not Available [facility], [place], [address], 03/18/2022 08:11:26 03/17/20 22 03/18/2022 CBC W/ AUTOD IFF, COMPL ETE BLOOD COUNT RDW 12.0 % 11.6-1 5.4 normal Not Available [facility] [address] [place], [address], 03/18/2022 08:11:26 03/17/20 22 03/18/2022 CBC W/ AUTOD IFF, COMPL ETE BLOOD COUNT platelets 292 x10e3 /uL 150-45 0 normal Not Available [facility], [place], [address], 03/18/2022 08:11:26 03/17/20 22 03/18/2022 CBC W/ AUTOD IFF, COMPL ETE BLOOD COUNT neutrophils 74 % not estab. normal Not Available [facility], [place], [address], 03/18/2022 08:11:26 03/17/20 22 03/18/2022 CBC W/ AUTOD IFF, COMPL ETE BLOOD COUNT lymphs 18 % not estab. normal Not Available [facility] [address] [facility] [address], [place], [address], 03/18/2022 08:11:26 03/17/20 22 03/18/2022 CBC W/ AUTOD IFF, COMPL ETE BLOOD COUNT monocytes 6 % not estab. normal Not Available [facility] [address] [facility] [address], [place], [address], 03/18/2022 08:11:26 03/17/20 22 03/18/2022 CBC W/ AUTOD IFF, COMPL ETE BLOOD COUNT eos 1 % not estab. normal Not Available [facility] [address] [facility] [address], [place], [address], 03/18/2022 08:11:26 03/17/20 22 03/18/2022 CBC W/ AUTOD IFF, COMPL ETE BLOOD COUNT basos 1 % not estab. normal Not Available [facility] [address] [facility] [address], [place], [address], 03/18/2022 08:11:26 03/17/20 22 03/18/2022 CBC W/ AUTOD IFF, COMPL ETE BLOOD COUNT neutrophils (absolute) 7.7 x10e3 /uL 1.4-7. 0 high Not Available [facility] [address] [facility] [address], [place], [address], 03/18/2022 08:11:26 03/17/20 22 03/18/2022 CBC W/ AUTOD IFF, COMPL ETE BLOOD COUNT lymphs (absolute) 1.9 x10e3 /uL 0.7-3. 1 normal Not Available [facility] [address] [facility] [address], [place], [address], 03/18/2022 08:11:26 03/17/20 22 03/18/2022 CBC W/ AUTOD IFF, COMPL ETE BLOOD COUNT monocytes(ab solute) 0.7 x10e3 /uL 0.1-0. 9 normal Not Available [facility] [address] [place] [address] [address], [place], [address], 03/18/2022 08:11:26 03/17/20 22 03/18/2022 CBC W/ AUTOD IFF, COMPL ETE BLOOD COUNT eos (absolute) 0.2 x10e3 /uL 0.0-0. 4 normal Not Available [facility] [address] [place] [address] [address], [place], [address], 03/18/2022 08:11:26 03/17/20 22 03/18/2022 CBC W/ AUTOD IFF, COMPL ETE BLOOD COUNT baso (absolute) 0.1 x10e3 /uL 0.0-0. 2 normal Not Available [facility] [address] [place] [address] [address], [place], [address], 03/18/2022 08:11:26 03/17/20 22 03/18/2022 CBC W/ AUTOD IFF, COMPL ETE BLOOD COUNT immature granulocytes 0 % not estab. normal Not Available [facility] [address] [place] [address] [address], [place], [address], 03/18/2022 08:11:26 03/17/20 22 03/18/2022 CBC W/ AUTOD IFF, COMPL ETE BLOOD COUNT immature grans (abs) 0.0 x10e3 /uL 0.0-0. 1 normal Not Available [facility] [address] [place] [address] [address], [place], [address], 03/18/2022 08:11:26 03/17/20 22 03/18/2022 CK creatine kinase,total 225 U/L 41-331 normal Not Available [facility] [address] [facility] [address], [place], [address], 03/18/2022 08:11:27 03/17/20 22 03/18/2022 CMP, COMPR EHENS HERMELINDO METAB OLIC PANEL glucose 103 mg/dL 65-99 high Not Available [facility] [address] [facility] [address], [place], [address], 03/18/2022 08:11:28 03/17/20 22 03/18/2022 CMP, COMPR EHENS HERMELINDO METAB OLIC PANEL BUN 15 mg/dL 8-27 normal Not Available [facility] [address] [facility] [address], [place], [address], 03/18/2022 08:11:28 03/17/20 22 03/18/2022 CMP, COMPR EHENS HERMELINDO METAB OLIC PANEL creatinine 1.12 mg/dL 0.76-1 .27 normal Not Available [facility] [address] [facility] [address], [place], [address], 03/18/2022 08:11:28 03/17/20 22 03/18/2022 CMP, COMPR EHENS HERMELINDO METAB OLIC PANEL eGFR 69 mL/mi n/1.7 3 >59 normal Not Available [facility] [address] [facility] [address], [place], [address], 03/18/2022 08:11:28 03/17/20 22 03/18/2022 CMP, COMPR EHENS HERMELINDO METAB OLIC PANEL BUN/creatini ne ratio 13 10-24 normal Not Available [facility] [address] [facility] [address], [place], [address], 03/18/2022 08:11:28 03/17/20 22 03/18/2022 CMP, COMPR EHENS HERMELINDO METAB OLIC PANEL sodium 140 mmol/ L 134-14 4 normal Not Available [facility] [address] [facility] [address], [place], [address], 03/18/2022 08:11:28 03/17/20 22 03/18/2022 CMP, COMPR EHENS HERMELINDO METAB OLIC PANEL potassium 4.3 mmol/ L 3.5-5. 2 normal Not Available [facility] [address] [facility] [address], [place], [address], 03/18/2022 08:11:28 03/17/2003/18/2022 CMP, COMPR EHENS HERMELINDO METAB OLIC PANEL chloride 100 mmol/ L 96-106 normal Not Available [facility] [address] [facility] [address], [place], [address], 03/18/2022 08:11:28 03/17/20 22 03/18/2022 CMP, COMPR EHENS HERMELINDO METAB OLIC PANEL carbon dioxide, total 26 mmol/ L 20-29 normal Not Available [facility] [address] [facility] [address], [place], [address], 03/18/2022 08:11:28 03/17/20 22 03/18/2022 CMP, COMPR EHENS HERMELINDO METAB OLIC PANEL calcium 9.9 mg/dL 8.6-10 .2 normal Not Available [facility] [address] [facility] [address], [place], [address], 03/18/2022 08:11:28 03/17/2003/18/2022 CMP, COMPR EHENS HERMELINDO METAB OLIC PANEL protein, total 7.2 g/dL 6.0-8. 5 normal Not Available [facility] [address] [facility] [address], [place], [address], 03/18/2022 08:11:28 03/17/20 22 03/18/2022 CMP, COMPR EHENS HERMELINDO METAB OLIC PANEL albumin 5.0 g/dL 3.7-4. 7 high Not Available [facility] [address] [facility] [address], [place], [address], 03/18/2022 08:11:28 03/17/20 22 03/18/2022 CMP, COMPR EHENS HERMELINDO METAB OLIC PANEL globulin, total 2.2 g/dL 1.5-4. 5 normal Not Available [facility] [address], [place], [address], 03/18/2022 08:11:28 03/17/2003/18/2022 CMP, COMPR EHENS HERMELINDO METAB OLIC PANEL A/G ratio 2.3 1.2-2. 2 high Not Available [facility] [address], [place], [address], 03/18/2022 08:11:28 03/17/20 22 03/18/2022 CMP, COMPR EHENS HERMELINDO METAB OLIC PANEL bilirubin, total 0.6 mg/dL 0.0-1. 2 normal Not Available [facility] [address], [place], [address], 03/18/2022 08:11:28 03/17/20 22 03/18/2022 CMP, COMPR EHENS HERMELINDO METAB OLIC PANEL alkaline phosphatase 139 IU/L 44-121 high Not Available [facility] [address] [facility] [address], [place], [address], 03/18/2022 08:11:28 03/17/2003/18/2022 CMP, COMPR EHENS HERMELINDO METAB OLIC PANEL AST (SGOT) 24 IU/L 0-40 normal Not Available [facility] [address], [place], [address], 03/18/2022 08:11:28 03/17/20 22 03/18/2022 CMP, COMPR EHENS HERMELINDO METAB OLIC PANEL ALT (SGPT) 29 IU/L 0-44 normal Not Available [facility] [address] [facility] [address], [place], [address], 03/18/2022 08:11:28 03/17/20 22 03/18/2022 LIPID PANEL REF DLDL cholesterol, total 222 mg/dL 100-19 9 high Not Available [facility] [address] [facility] [address], [place], [address], 03/18/2022 08:11:29 03/17/20 22 03/18/2022 LIPID PANEL REF DLDL triglyceride s 113 mg/dL 0-149 normal Not Available [facility] [address] [facility] [address] [place], [address], 03/18/2022 08:11:29 03/17/20 22 03/18/2022 LIPID PANEL REF DLDL HDL cholesterol 44 mg/dL >39 normal Not Available [facility] [address] [facility] [address] [place], [address], 03/18/2022 08:11:29 03/17/20 22 03/18/2022 LIPID PANEL REF DLDL LDL chol calc ([facility]) 158 mg/dL 0-99 high Not Available [facility] [address] [facility] [address], [place], [address], 03/18/2022 08:11:29 03/17/20 22 03/18/2022 LIPID PANEL REF DLDL T. chol/HDL ratio 5.0 ratio 0.0-5. 0 normal T. Chol/ HDL Ratio Men Women 1/2 Avg.R isk 3.4 3.3 Avg.R isk 5.0 4.4 2X Avg.R isk 9.6 7.1 3X Avg.R isk 23.4 11.0 Not Available [facility] [address] [facility] [address] [place], [address], 03/18/2022 08:11:29 03/17/20 22 03/18/2022 LIPID PANEL REF DLDL LDL/HDL ratio 3.6 ratio 0.0-3. 6 normal LDL/H DL Ratio Men Women 1/2 Avg.R isk 1.0 1.5 Avg.R isk 3.6 3.2 2X Avg.R isk 6.2 5.0 3X Avg.R isk 8.0 6.1 Not Available [facility] [address] [facility] [address] [place], [address], 03/18/2022 08:11:29 03/17/20 22 03/18/2022 LIPID PANEL REF DLDL LDL chol. (direct) 152 mg/dL 0-99 high Not Available [facility] [address] [facility] [address] [place], [address], 03/18/2022 08:11:29 03/17/20 22 03/18/2022 PSA DIAGN [...] t be inter prete d as absol [place] evide nce of the prese nce or absen ce of nidia oscar disea se. Not Available [facility] [address] [facility] [address] [place], [address], 03/18/2022 08:11:30 03/17/20 22 03/18/2022 VITAM IN [...] um and D. Basilia jacobs [place]: [facility] . 2. Graham pineda [place], Raffaele rasmussen [place], Nicky off-F sumit i FLORES, et al. Evalu ation , treat ment, and preve ntion of vitam in D defic iency : an Endoc rine Socie ty clini concha pract ice guide line. JCEM. 2010; 96(7) :1911 -30. Not Available [facility] [address] [place], [address], 03/18/2022 08:11:31 03/17/20 22 03/17/2022 VENIP UNCTU RE results Compl ete Not Available [facility] [address], [place], [address], 03/17/2022 09:15:24 03/19/20 22 03/20/2022 PSA (FREE [...] t be inter prete d as absol [place] evide nce of the prese nce or absen ce of cesario shelby se. Not Available [facility] [address], [place], [address], 03/20/2022 08:11:48 03/19/20 22 03/20/2022 PSA (FREE AND TOTAL ) PSA, free 0.76 NG/mL n/a normal Willam ECLIA metho dolog y. Not Available [facility] [address], [place], [address], 03/20/2022 08:11:48 03/19/20 22 03/20/2022 PSA (FREE [...] other popul ation of men. Not Available [facility] [address], [place], [address], 03/20/2022 08:11:48 03/19/20 22 03/20/2022 TESTO STERO NE testosterone 238 NG/dL 264-91 6 low Adult male refer ence inter keaton is based on a popul ation of healt hy nonob aron males (BMI <30) betwe en 19 and 39 years old. Velia sanderson et.al . JCEM 2017, 102;1 161-1 173. PMID: 15000 103. Not Available [facility] [address], [place], [address], 03/20/2022 08:11:49 03/19/20 22 03/19/2022 VENIP UNCTU RE results Compl ete Not Available [facility] [address], [place], [address], 03/19/2022 09:55:12 Result Notes None recorded. 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 Not Available [facility] 2 22:12:54 Persistent insomnia 119611330 Active Not Available [facility] 2 22:12:55 Asthma 236629850 Active Not Available [facility] 2 22:12:54 Generalized anxiety disorder 10219782 Active 2017 Not Available [facility] 2 22:12:54 Gastroesophag eal reflux disease 574246036 Active Not Available [facility] 2 22:12:55 Basal cell carcinoma of skin 530162871 Active 2019 Not Available [facility] 2 22:12:55 Pure hypercholeste rolemia 320656936 Active Not Available [facility] 2 22:12:54 Vitamin D deficiency 77069043 Active 2016 Not Available [facility] 2 22:12:54 Memory impairment 859646677 Active 2016 Not Available [facility] 2 22:12:55 Osteoarthriti s 018428299 Active 2016 Not Available [facility] 2 22:12:54 Obesity 161301853 Active 2017 Not Available [facility] 2 22:12:54 Allergic conjunctiviti s 029761792 Active Not Available [facility] 2 22:12:54 Pain of hip region 24722847 Active Not Available [facility] 2 22:12:55 Allergic rhinitis [id number] Active Not Available [facility] 2 22:12:55 Sleep apnea [id number] Active 2016 Not Available [facility] 2 22:12:55 Problem Notes None recorded. Procedures Surgical History Date Name Laterality Status Provider Name and Address Organization Details Recorded Time 03/24/20 22 Quality Functional Assessment completed [facility] [facility] 03/24/2022 11:18:07 03/24/20 22 Quality Medication Reviewed and Updated completed [facility] 03/24/2022 11:18:07 03/24/20 22 Quality BMI with follow up completed [facility] 03/24/2022 11:18:07 03/24/20 22 Quality Advanced Care Planning completed [facility] 03/24/2022 11:18:07 03/24/20 22 Quality Incontinence Screening completed [facility] 03/24/2022 11:18:07 03/24/20 22 Medicare AWV-Screening Schedule completed [facility] 03/24/2022 11:18:07 03/24/20 22 Counseling: Advanced care planning completed MAURO Byrd [facility], [facility] 03/24/2022 13:55:20 03/24/20 22 Quality Fall Risk [facility] 03/24/2022 11:18:07 08/06/19 22 Nail Debridement completed Maeve Giles [facility], [facility] 08/06/2021 16:05:06 03/15/20 18 Feces-based colorectal cancer DNA screening completed Tracy Reagan [facility], [facility] 08/06/2021 09:59:56 07/18/19 colonoscopy completed Tracy Reagan [facility] 08/06/2021 09:58:40 [facility] 09:58:31 Imaging Results None recorded. Procedure Notes None recorded. Medical Equipment None Reported. Allergies Allergen ID Allergen Name Allergen Category Reaction Reaction Severity Criticality Documentation Date Start Date Code Code System Note Provider Name and Address Organization Details Recorded Time 857247 Product containin g 3-hydroxy -3-methyl glutaryl- coenzyme A reductase inhibitor (product) medicatio n other moderate Not available 07/18/20212014 65278 009 SNOMED Palpi tatio ns Tracy Reagan [facility] [place], [facility] 12:32:35 Medications Name Sig Start Date [...] Available Not Available Not Available Fluzone High-Dose 4692-4277 (PF) 180 mcg/0.5 mL intramusc ular syringe ADM 0.5ML IM UTD active Not Available Not Available No t Available Fluzone High-Dose 3985-9824 (PF) 180 mcg/0.5 mL intramusc ular syringe [...] Available Not Available Not Available Fluad Quad 4561-7566 (65yr up)(PF) 60 mcg (15 mcg x [...] cm 87 /min 18 /min 97.9 [degF] 35950.4 7 g 184 mm[Hg] 96 mm[Hg] Not Available [facility] 22:[facility]14 Date Recorded Body height Heart [...] 0 18 /min 98.1 [degF] 34.5 kg/m2 36342.5 9 g 183 mm[Hg] 96 mm[Hg] 177 mm[Hg] 96 mm[Hg] 135 mm[Hg] 84 mm[Hg] MAURO Byrd [place] [facility], [facility] 2 13:48:29 Date Recorded Body height [...] 0 18 /min 98.2 [degF] 34.5 kg/m2 59686.5 9 g 172 mm[Hg] 99 mm[Hg] 176 mm[Hg] 81 mm[Hg] Jamaica Funk CMA [facility], [facility] 2 14:05:01 Date Recorded Body height Heart rate Pain severity - 0-10 verbal numeric rating [Score] - Reported Respiratory rate Body temperature Body mass index (BMI) Body weight Systolic blood pressure Diastolic blood pressure Systolic blood pressure Diastolic blood pressure Provider Name and Address Organization Details Last Updated DateTime 2 163.83 cm 89 /min 0 18 /min 98.1 [degF] 35 kg/m2 46142.0 2 g 181 mm[Hg] 97 mm[Hg] 171 mm[Hg] 98 mm[Hg] MAURO Byrd [facility], [facility] 2 13:32:03 Date Recorded Body height Heart rate Pain severity - 0-10 verbal numeric rating [Score] - Reported Respiratory rate Body temperature Body mass index (BMI) Body weight Systolic blood pressure Diastolic blood pressure Systolic blood pressure Diastolic blood pressure Provider Name and Address Organization Details Last Updated DateTime 2 163.83 cm 80 /min 0 18 /min 98.5 [degF] 34 kg/m2 87971.4 7 g 183 mm[Hg] 93 mm[Hg] 139 mm[Hg] 85 mm[Hg] Coni Mock [facility], [facility] 2 13:10:43 Social History Question Answer Notes LastModified by Organizat ion Details LastModified Time Tobacco Smoking Status Former Smoker MAURO Byrd [email or web address], [facility] 08/06/2021 09:58:08 Do You Have An Advance Directive? No Information not available 08/06/2021 When Did You Quit Smoking? 16+yearssinc elastcigaret te [email or web address] Information not available 08/06/2021 Do You Have A Medical Power Of Ems Driver? No [email or web address] Information not available 08/06/2021 What Was The Date Of Your Most Recent Tobacco Screening? 08/06/2021 [email or web address] Information not available 08/06/2021 What Is Your Current Pack Years? 10packyears [email or web address] Information not available 08/06/2021 What Is Your Relationship Status? [email or web address] Information not available 08/06/2021 Has Tobacco Cessation Counseling Been Provided? No [email or web address] Information not available 08/06/2021 Sex: Unknown Functional Status Question Answer Note LastModified by Organizat ion Details LastModified Time Do you use any illicit or recreational drugs? No [email or web address] Information not available 08/06/2021 Do you or have you ever used any other forms of tobacco or nicotine? No [email or web address] Information not available 08/06/2021 What is your level of alcohol consumption? Occasional [email or web address] Information not available 08/06/2021 Are you currently employed? 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 Family History Relationship Description Onset Age of this Age Resolved Age Notes LastModified by Organization Details LastModified Time Father Cerebrovascu lar accident [email or web address] Not available 09:56:49 Mother Natural [email or web address] Not available 2021 09:57:03 Notes:1 brother, no problems . 2 children alive and well Medical History Condition Response Other Y Sleep disorder/Insomnia Y High Cholesterol Y Hepatitis Y GERD/Ulcer Y Asthma Y Allergies (other than meds) Y Immunizations Vaccine Type Date Status Note Provider Nam e and Address Organization Details Recorded Time Influenza, high-dose, quadrivalent, PF 2 completed Jacki Mayen MD [address], [place], [address], [facility], [facility] 03/24/2022 16:33:59 Influenza, high-dose, trivalent, PF 5 completed Coni napoles [facility], [facility] 03/24/2022 11:18:31 Pneumococcal conjugate PCV 13 5 completed Coni Rubyi null, [facility], [facility] 03/24/2022 11:18:31 Influenza, split virus, trivalent, preservative 4 completed Coni [place] null, [facility], [facility] 03/24/2022 11:18:31 Influenza, split virus, quadrivalent, preservative 3 completed Coninaresh [place] null, [facility], [facility] 03/24/2022 13:11:35 Influenza, split virus, trivalent, preservative 2 completed Coni [place] null, [facility], [facility] 03/24/2022 11:18:31 Influenza, split virus, trivalent, preservative 4 completed Coni Rubyi null, [facility], [facility] 03/24/2022 11:18:31 Influenza, split virus, trivalent, preservative 3 completed Coni [place] null, [facility], [facility] 03/24/2022 11:18:31 zoster live 0 completed Coni Rubyi null, [facility], [facility] 03/24/2022 11:18:31 tetanus toxoid, unspecified formulation 0 completed Coni Rubyi null, [facility], [facility] 03/24/2022 11:18:31 pneumococcal, unspecified formulation 0 completed Coni Dulski null, [facility], [facility] 03/24/2022 11:18:31 Influenza, adjuvanted, trivalent, PF 8 completed Coninaresh [place] null, [facility], [facility] 03/24/2022 11:18:31 Influenza, split virus, quadrivalent, PF 0 completed Coni [place] null, [facility], [facility] 03/24/2022 11:18:31 tetanus toxoid, unspecified formulation 0 completed Coni Dulski null, [facility], [facility] 03/24/2022 11:18:31 Influenza, high-dose, trivalent, PF 6 completed [facility], [facility] 03/24/2022 11:18:31 Influenza, high-dose, quadrivalent, PF 1 completed Coni Dulski null, [facility], [facility] 03/24/2022 11:18:31 Influenza, split virus, trivalent, preservative 3 completed [facility], [facility] 03/24/2022 11:18:31 COVID-19, mRNA, LNP-S, PF, 100 mcg/0.5mL dose or 50 mcg/0.25mL dose 1 completed Coni Dulski null, [facility], [facility] 03/24/2022 11:18:31 Influenza, split virus, trivalent, PF 0 completed [facility], [facility] 03/24/2022 11:18:31 pneumococcal, unspecified formulation 0 completed [facility], [facility] 03/24/2022 11:18:31 Influenza, high-dose, trivalent, PF 7 completed [facility], [facility] 03/24/2022 11:18:31 Influenza, split virus, quadrivalent, PF 0 completed [facility], [facility] 03/24/2022 11:18:31 COVID-19, mRNA, LNP-S, PF, 100 mcg/0.5mL dose or 50 mcg/0.25mL dose 1 completed [facility] Dul[facility], [facility] 03/24/2022 11:18:31 COVID-19, mRNA, LNP-S, PF, 100 mcg/0.5mL dose or 50 mcg/0.25mL dose 1 completed Coni Mock null, [facility], [facility] 03/24/2022 11:18:31 Influenza, adjuvanted, trivalent, PF 9 completed Coni Rubyi null, [facility], [facility] 03/24/2022 11:18:31 COVID-19, mRNA, LNP-S, PF, 100 mcg/0.5mL dose or 50 mcg/0.25mL dose 2 completed Coni Rubyi null, [facility], [facility] 03/24/2022 11:18:31 Past Encounters Encounter ID Performer Location Encounter Start Date Encounter Closed Date Diagnosis/Indication Diagnosis SNOMED-CT Code Diagnosis ICD10 Code Diagnosis Note [id number] MD YANELIS Hill [place] [address] [place] [address] [place] [address] 01/29/2013 00:00:00 02/16/2013 23:08:01 [id number] MD YANELIS Hill [place] [address] [place] [address] [place] [address] 04/23/2013 00:00:00 04/23/2013 20:09:08 [id number] MD YANELIS Hill [place] [address] [place] [address] [place] [address] 06/04/2013 00:00:00 06/04/2013 19:55:35 [id number] MD YANELIS Hill [place] [address] [place] [address] [place] [address] 06/18/2013 00:00:00 06/19/2013 22:49:49 [id number] MD YANELIS Hill [place] [address] [place] [address] [place] [address] 11/19/2013 00:00:00 11/19/2013 21:27:16 [id number] MD YANELIS Hill [place] [address] [place] [address] [place] [address] 12/25/2013 00:00:00 12/26/2013 21:41:49 [id number] Jacki Mayen MD [facility] [place] [address] [place] [address] [place] [address] 04/04/2014 00:00:00 04/04/2014 19:06:34 [id number] Jacki Mayen MD [facility] [place] [address] [place] [address] [place] [address] 01/07/2015 00:00:00 01/07/2015 18:27:58 [id number] MD YANELIS Hill [place] [address] [place] [address] [place] [address] 01/28/2015 00:00:00 01/28/2015 21:01:46 [id number] Jacki Mayen MD [facility] [place] [address] [place] [address] [place] [address] 04/01/2015 00:00:00 04/01/2015 18:52:17 [id number] Jacki Mayen MD [facility] [place] [address] [place] [address] [place] [address] 07/07/2015 00:00:00 07/07/2015 21:44:17 [id number] MD YANELIS Hill [place] [address] [place] [address] [place] [address] 08/07/2015 00:00:00 08/07/2015 21:17:51 [id number] Jacki Mayen MD [facility] [place] [address] [place] [address] [place] [address] 09/18/2015 00:00:00 09/18/2015 20:13:45 [id number] MD YANELIS Hill [place] [address] [place] [address] [place] [address] 10/08/2015 00:00:00 10/08/2015 19:09:09 [id number] Jacki Mayen MD [facility] [place] [address] [place] [address] [place] [address] 11/20/2015 00:00:00 11/20/2015 21:46:21 [id number] Jacki Mayen MD [facility] [place] [address] [place] [address] [place] [address] 12/08/2015 00:00:00 12/08/2015 18:20:53 [id number] Jacki Mayen MD [facility] [place] [address] [place] [address] [place] [address] 01/12/2016 00:00:00 01/12/2016 22:02:19 [id number] Jacki Mayen MD [facility] [place] [address] [place] [address] [place] [address] 02/11/2016 00:00:00 02/11/2016 20:10:25 [id number] MD YANELIS Hill [place] [address] [place] [address] [place] [address] 03/04/2016 00:00:00 03/04/2016 23:18:13 [id number] MD YANELIS Hill [place] [address] [place] [address] [place] [address] 03/11/2016 00:00:00 03/11/2016 17:49:47 [id number] MD YANELIS Hill [place] [address] [place] [address] [place] [address] 04/14/2016 00:00:00 04/14/2016 21:54:59 [id number] _ATHN_MIGR ATION_1 _ATHENA_M IGRATION_ DEFAULT_2 2_1 , 05/24/2016 00:00:00 05/25/2016 08:45:46 [id number] Jacki Mayen MD [facility] [place] [address] [place] [address] [place] [address] 06/29/2016 00:00:00 06/29/2016 19:47:09 [id number] MD YANELIS Hill [place] [address] [place] [address] [place] [address] 07/20/2016 00:00:00 07/20/2016 21:34:43 [id number] Jacki Mayen MD [facility] [place] [address] [place] [address] [place] [address] 07/22/2016 00:00:00 07/22/2016 20:16:36 [id number] Jacki Mayen MD [facility] [place] [address] [place] [address] [place] [address] 02/09/2017 00:00:00 02/09/2017 18:37:59 [id number] Jacki Mayen MD [facility] [place] [address] [place] [address] [place] [address] 06/03/2017 00:00:00 06/03/2017 16:36:35 [id number] Jacki Mayen MD [facility] [place] [address] [place] [address] [place] [address] 07/06/2017 00:00:00 07/06/2017 17:48:10 [id number] Jacki Mayen MD [facility] [place] [address] [place] [address] [place] [address] 10/12/2017 00:00:00 10/13/2017 08:49:40 [id number] Jacki Mayen MD [facility] [place] [address] [place] [address] [place] [address] 12/21/2017 00:00:00 12/21/2017 20:00:20 [id number] Mayen MD [facility] [place] [address] [place] [address] [place] [address] 03/07/2018 00:00:00 03/07/2018 16:46:30 [id number] MD YANELIS Hill [place] [address] [place] [address] [place] [address] 05/16/2018 00:00:00 05/16/2018 14:02:35 [id number] MD YANELIS Hill [place] [address] [place] [address] [place] [address] 06/16/2018 00:00:00 06/16/2018 12:12:36 [id number] Jacki Mayen MD [facility] [place] [address] [place] [address] [place] [address] 08/14/2018 00:00:00 08/14/2018 18:44:08 [id number] Jacki Mayen MD [facility] [place] [address] [place] [address] [place] [address] 09/04/2018 00:00:00 09/04/2018 16:20:16 [id number] MD YANELIS Hill [place] [address] [place] [address] [place] [address] 10/13/2018 00:00:00 10/13/2018 19:44:33 [id number] MD YANELIS Hill [place] [address] [place] [address] [place] [address] 11/30/2018 00:00:00 11/30/2018 19:06:17 [id number] MD YANELIS Hill [place] [address] [place] [address] [place] [address] 12/28/2018 00:00:00 12/28/2018 20:37:18 [id number] MD YANELIS Hill [place] [address] [place] [address] [place] [address] 03/02/2019 00:00:00 03/02/2019 17:55:28 [id number] MD YANELIS iHll [place] [address] [place] [address] [place] [address] 03/12/2019 00:00:00 03/12/2019 19:57:02 [id number] MD YANELIS Hill [place] [address] [place] [address] [place] [address] 04/16/2019 00:00:00 04/16/2019 12:42:36 [id number] Raleigh Evans MD [facility] [place] [address] [place] [place] [address] 04/26/2019 00:00:00 04/26/2019 12:57:24 [id number] MD YANELIS Hill [place] [address] [place] [address] [place] [address] 06/04/2019 00:00:00 06/04/2019 19:50:38 [id number] Jacki Mayen MD [facility] [place] [address] [place] [address] [place] [address] 06/11/2019 00:00:00 06/11/2019 18:09:56 [id number] Jakci Mayen MD [facility] [place] [address] [place] [address] [place] [address] 06/21/2019 00:00:00 06/21/2019 21:27:46 [id number] MD YANELIS Hill [place] [address] [place] [address] [place] [address] 06/29/2019 00:00:00 06/29/2019 20:38:40 [id number] MD YANELIS Hill [place] [address] [place] [address] [place] [address] 07/26/2019 00:00:00 07/26/2019 21:47:48 [id number] _ATHN_MIGR ATION_1 _ATHENA_M IGRATION_ DEFAULT_2 2_1 , 09/04/2019 00:00:00 09/04/2019 13:55:20 [id number] MD YANELIS Hill [place] [address] [place] [address] [place] [address] 09/11/2019 00:00:00 09/11/2019 20:24:02 [id number] MD YANELIS Hill [place] [address] [place] [address] [place] [address] 11/08/2019 00:00:00 11/08/2019 10:03:23 [id number] MD YANELIS Hill [place] [address] [place] [address] [place] [address] 12/11/2019 00:00:00 12/11/2019 18:39:53 [id number] _ATHN_MIGR ATION_1 _ATHENA_M IGRATION_ DEFAULT_2 2_1 , 12/14/2019 00:00:00 12/14/2019 14:36:01 [id number] Jacki Mayen MD [facility] [place] [address] [place] [address] [place] [address] 01/15/2020 00:00:00 01/15/2020 13:12:43 [id number] Jacki Mayen MD [facility] [place] [address] [place] [address] [place] [address] 03/10/2020 00:00:00 03/10/2020 13:10:45 [id number] Jacki Mayen MD [facility] [place] [address] [place] [address] [place] [address] 03/17/2020 00:00:00 03/17/2020 18:38:52 [id number] MD YANELIS Hill [place] [address] [place] [address] [place] [address] 03/27/2020 00:00:00 03/27/2020 16:19:08 [id number] MD YANELIS Hill [place] [address] [place] [address] [place] [address] 04/17/2020 00:00:00 04/17/2020 20:35:51 [id number] Jacki Mayen MD [facility] [place] [address] [place] [address] [place] [address] 07/14/2020 00:00:00 07/14/2020 18:25:39 [id number] MD AYNELIS Hill [place] [address] [place] [address] [place] [address] 08/04/2020 00:00:00 08/04/2020 20:45:13 [id number] MD YANELIS Hill [place] [address] [place] [address] [place] [address] 08/11/2020 00:00:00 08/11/2020 19:45:31 [id number] MD YANELIS Hill [place] [address] [place] [address] [place] [address] 08/20/2020 00:00:00 08/20/2020 15:42:53 [id number] Jacki Mayen MD [facility] [place] [address] [place] [address] [place] [address] 08/25/2020 00:00:00 08/25/2020 16:15:19 [id number] MD YANELIS Hill [place] [address] [place] [address] [place] [address] 09/23/2020 00:00:00 09/23/2020 20:04:26 [id number] MD YANELIS Hill [place] [address] [place] [address] [place] [address] 12/24/2020 00:00:00 12/24/2020 18:44:29 [id number] MD YANELIS Hill [place] [address] [place] [address] [place] [address] 03/18/2021 00:00:00 03/18/2021 14:22:16 [id number] MD YANELIS Hill [place] [address] [place] [address] [place] [address] 04/10/2021 00:00:00 04/10/2021 21:06:05 [id number] MD YANELIS Hill [place] [address] [place] [address] [place] [address] 08/06/2021 09:15:42 08/06/2021 16:05:26 Screening for malignant neoplasm of colon 846867644 Z12.12 Z12.11 patient unable or unwilling to have colonoscop y; alternativ e screening ordered Onychomycosis 568477269 B35.1 [id number] MD YANELIS Hill [place] [address] [place] [address] [place] [address] 08/20/2021 13:35:59 08/20/2021 15:31:32 Basal cell carcinoma of skin 241981004 C44.91 [id number] MD YANELIS Hill [place] [address] [place] [address] [place] [address] 09/17/2021 13:14:55 09/17/2021 14:32:38 Gastroesophageal reflux disease [id number] K21.9 He has gastroesop hageal reflux disease, he does not know what medicine he is taking but he is on Prilosec twice daily of tried him tell him to go to once every other day we have had discussion multiple times before he is no longer taking his sulcal fate his condition is stable and not progressin g Asthma 615346912 J45.90 9 Has had a lifetime of asthma reactive airways disease and is now using the albuterol 2 puffs every 6 hours only as needed and is no longer using his preventati ve medicine such as Advair Memory impairment 209167 006 R41.3 His memory impairment is getting worse out of extended private discussion with his today outside of this patient's presence she informs me that he is confused often and becoming very possessive of her and sad to watch his decline making her depressed Onychomycosis 171862181 B35.1 He still has a little toenail fungus of all of his problems is really the least of his issues with only a minor issue on his left great toe he is completed a course of Lamisil. Basal cell carcinoma of skin 274454440 C44.91 I recommende d to get the small basal cell the right side of his face surgically removed we have made arrangemen ts for a plastic surgeon to see him [id number] MD YANELIS Hill [place] [address] [place] [address] [place] [address] 03/24/2022 12:46:01 03/24/2022 15:39:53 Adult health examination [id number] Z00.00 Annual Wellness Visit done today Advance care planning 71 0423866 Z71.89 Active or passive immunization 337283382 Z23 Prostate s pecific antigen above reference range 860331820 R97.20 Dementia 18656876 F03.90 Blood in urine 77259383 R31.9 Memory impairment 324928 006 R41.3 His memory impairment is getting worse out of extended private discussion with his today outside of this patient's presence she informs me that he is confused often and becoming very possessive of her and sad to watch his decline making her depressed Asthma 915499306 J45.90 9 Has had a lifetime of asthma reactive airways disease and is now using the albuterol 2 puffs every 6 hours only as needed and is no longer using his preventati ve medicine such as Advair Gastroesop hageal reflux disease [id number] K21.9 He has gastroesop hageal reflux disease, [...] Member ID Glass Member ID Guarantor Name 07/01/2022 1 [employer] (MEDICARE REPLACEMENT HMO) Oswaldo Young [id number] Oswaldo Young Notes Date Note Type Note Provider Name and Address Organization Details Recorded Time 08/06/2021 text/html CORONAVIRUS SCREENING [id number] white male comes in today with a [...] vaccine product did you receive?Moderna Imported from [facility] on 08/06/2021 QUALITY MEASURE QUESTIONNAIRE ?Are you a diabetic patient ?No ?Has the Patient previously received any type of colorectal cancer screener ?No Imported from [facility] on 08/06/2021 Jacki Mayen MD [address], [place], [address], [facility] - [facility], [facility] 08/06/2021 20:22:20 08/20/2021 text/html CORONAVIRUS SCREENING [...] tested positive for COVID-19 ?No Imported from [facility] on 08/20/2021 Jacki Mayen MD [address], [place], [address], [facility] - [facility], [facility] 08/20/2021 19:04:39 09/17/2021 text/html CORONAVIRUS SCREENING [...] tested positive for COVID-19 ?No Imported from [employer] on 09/17/2021 Jacki Mayen MD [address], [place], [address], [facility], [facility] 09/17/2021 19:15:56 03/24/2022 text/html Medicare Annual Wellness [...] month and they like to go to [employer]. He tells me that his dementia is not good but not bad and not changing. He had annual labs done on 03/17/22 and the results were reviewed today. He has no new complaints today. Jacki Mayen MD [address], [place], [address], [facility], [facility] 03/24/2022 16:34:05
--- OUTSIDE RECORDS SUMMARY | 2024-11-27 13:20 | XMS_ITS | Data Portability ---
Author Organization [place] - [facility], Allergy Address [address] [address] Care Team Providers Care [employer] Owner Name Role Phone HARRIS PENNY Primary Care Provider Assessment Encounter Date Assessment Date Assessment LastModified by Organization Details LastModified Time 02/10/2024 02/10/2024 Patient was referred for evaluation of left parotid nodule. 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 14:55:26 Problem Notes None recorded. Procedures Surgical History Date Name Laterality Status Provider Name and Address Organization Details Recorded Time procedure on wrist completed Ca Dawson [place] - [facility] 02/10/2024 14:09:06 Imaging Results Imaging Date [...] DAY, THEN 1 TABLET TW[facility] completed Not Available Not Available Not Available cholecalcif mahesh (vitamin D3) 50 mcg (2,000 unit) capsule TAKE 1 CAPSULE BY MOUTH EVERY DAY active Not Available Not Available No t Available Vitals Date Recorded Body height Body mass index (BMI) Body weight Provider Name and Address Organization Details Last Updated DateTime 02/10/2024 170.18 cm 34 kg/m2 12613.54 g Ca Dawson [place] [facility] 02/10/2024 14:32:31 Social History None recorded. Functional Status None recorded. Mental Status None recorded. Family History Nothing Reported. 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 Health Concerns Section Related Observation LastModified by Organization Detai ls LastModified Time None Recorded Concern Status LastModified by Organization Details LastModified Time None Recorded Advance Directives Directive None Recorded Payers Insurance Date Sequence Insurance Name Policy Number Policy Glass Covered Member ID Glass Member ID Guarantor Name 02/10/2024 1 [employer] - MEDICARE ADVANTAGE PLAN (MEDICARE REPLACEMENT HMO) [id number] Oswaldo Young [id number] Oswaldo Young Notes Date Note Type Note Provider Name and Address Organization Details Recorded Time 02/10/2024 text/html new patient referred for parotid massno symptoms of pain in side of necktobacco - in 1960s 10/24/23 [facility] -13 x 6 x 7 mm left intraparotid lymph node, 11 x 5 x 7 mm right intraparotid lymph node 12/11/22 ct cervical spine 4mm hypodensity left parotid retired from [employer] ARTURO CONN MD [address] [address], [place], [address], [facility] [place] 02/10/2024 14:56:17
== END ==
LOC: HO.CARD 11:56
PROVIDERS: PCP Nurse Practitioner Family; Visit Provider Nurse Practitioner Family
DX: Z01.818 Encounter for other preprocedural examination (principal)
CPT/HCPCS: 93005

== ENCOUNTER → 2024-11-27 12:03 | Outpatient (BNV) | payer MEDICARE, SELFPAY | PROVIDERS: PCP Nurse Practitioner Family; Visit Provider Internal Medicine Cardiovascular Disease | DX: R94.31 Abnormal electrocardiogram [ECG] [EKG] (principal); Z01.810 Encounter for preprocedural cardiovascular examination | CPT/HCPCS: 93010 ==

== ENCOUNTER 2024-12-03 07:47 | Outpatient (AMB) | payer MEDICARE, SELFPAY ==
--- OUTSIDE RECORDS SUMMARY | 2024-12-03 07:50 | XMS_ITS | Data Portability ---
Author Organization [place] - [facility], Allergy Address [address] [address] Care Team Providers Care Head Holder Name Role Phone HARRIS PENNY Primary Care Provider [phone] Assessment Encounter Date Assessment Date Assessment LastModified by Organization Details LastModified Time 02/10/2024 02/10/2024 Patient was referred for evaluation of left parotid nodule. He recently had ultrasound at [place] showing intraparotid lymph nodes with no concerning [...] Neoplasm of uncertain behavior of parotid gland 21781058 Active 024 ARTURO CONN MD 100 [facility] 100, [place], [address] , [place] - [facility] 14:55:26 Problem Notes None recorded. Procedures Surgical History Date Name Laterality Status Provider Name and Address Organization Details Recorded Time procedure on wrist completed Ca Dawson [place] - [facility] 02/10/2024 14:09:06 Imaging Results Imaging Date Name [...] DAY, THEN 1 TABLET [facility] completed Not Available Not Available Not Available cholecalcif mahesh (vitamin D3) 50 mcg (2,000 unit) capsule TAKE 1 CAPSULE BY MOUTH EVERY DAY active Not Available Not Available No t Available Vitals Date Recorded Body height Body mass index (BMI) Body weight Provider Name and Address Organization Details Last Updated DateTime 02/10/2024 170.18 cm 34 kg/m2 36294.54 g Ca Dawson [place] [facility] 02/10/2024 14:32:31 Social History None recorded. Functional Status None recorded. Mental Status None recorded. Family History Nothing Reported. Medical History Condition Response Arthritis Y Hypertension Y Past Encounters Encounter ID Performer Location Encounter Start Date Encounter Closed Date Diagnosis/Indication Diagnosis SNOMED-CT Code Diagnosis ICD10 Code Diagnosis Note [id number] ARTURO CONN MD [facility] 100 [place] [address] 02/10/2024 13:39:06 02/10/2024 14:58:39 Neoplasm of uncertain behavior of parotid gland 61668059 D37.030 Health Concerns Section Related Observation LastModified by Organization Detai ls LastModified Time None Recorded Concern Status LastModified by Organization Details LastModified Time None Recorded Advance Directives Directive None Recorded Payers Insurance Date Sequence Insurance Name Policy Number Policy Glass Covered Member ID Glass Member ID Guarantor Name 02/10/2024 1 [employer] - MEDICARE ADVANTAGE PLAN (MEDICARE REPLACEMENT HMO) [id number] Oswaldo Young [id number] Oswaldo Young Notes Date Note Type Note Provider Name and Address Organization Details Recorded Time 02/10/2024 text/html new patient referred for parotid massno symptoms of pain in side of necktobacco - in 1960s 10/24/23 [facility] -13 x 6 x 7 mm left intraparotid lymph node, 11 x 5 x 7 mm right intraparotid lymph node 12/11/22 ct cervical spine 4mm hypodensity left parotid retired from [facility] ARTURO CONN MD [address] [address], [place], [address], [facility] - [facility] [place] 02/10/2024 14:56:17
--- OUTSIDE RECORDS SUMMARY | 2024-12-03 07:50 | XMS_ITS | Data Portability ---
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 given his failing memory I recommended he decrease his Prilosec which he takes for GERD every other day and see if he can tolerate that he was taking it b.i.d. that q.day now with no symptoms. 4. allergic rhinitis using lgcb-lac-fimxlta medications. 5. Asthma not using any medications at this time has been on Advair in the past. 6. GERD as stated above. 7. Preventive healthcare discuss he is up-to-date with all vaccines gets a comprehensive eye exam every year his pain level is 0/10 [email or web address] Not available 03/18/2021 13:51:20 04/10/2021 04/10/2021 75-year-old [...] vitamin D, 25-hydroxy, total, serum 2020 021 [facility], [address], [place], [address], 08:13:21 lipid panel, serum 2020 021 [facility], [address], [place], [address], 08:13:19 CMP, serum or plasma 2020 021 [facility], [address], [place], [address], 08:13:18 PSA, total, serum or plasma 2020 021 [facility], [address], [place], [address], 08:13:21 TSH, serum or plasma 2020 021 [facility], [address], [place], [address], 08:13:20 urinalysis complete, reflex culture 2020 021 [facility], [address], [place], [address], 08:13:18 CBC w/ auto diff 2020 021 [facility], [address], [place], [address], 08:13:17 Referral None recorded. Procedures None recorded. Surgeries None recorded. Imaging None recorded. Medication Orders None recorded. Patient TargetsNo targets recorded. Patient Instructions Encounter Date Encounter Id Patient Instructions Last Modified By Organization Details Last Modified Time 03/18/2021 [id number] alcohol use disorders identification test* [email or web address] Not available 03/18/2021 13:53:15 fall risk screening* [id number] Not agnes ilable 03/18/2021 13:53:15 geriatric depres logan screen* [email or web address] Not available 03/18/2021 13:53:15 multi-dimensiona l health assessment questionnaire* JUAN Not available 03/18/2021 21:36:12 Advance Care Directives Patient WebLink Handout [email or web address] Not available 03/18/2021 13:53:15 advance directiv es: care instructions [email or web address] Not available 03/18/2021 13:53:15 Personalized Hea lth [...] ? Pain Management Plan: ? ? ? [email or web address] Not available 03/18/2021 13:13:00 10/26/2021 [id number] learning about b yuki cell skin cancer Not available 10/26/2021 16:23:55 skin lesions: ca re instructions Not available 10/26/2021 16:23:55 Reason for Referral None Reported. Results Created Date Observation Date Name Description Value Unit Range Abnormal Flag Note LastModifiedBy Organization Detail LastModifiedTime 03/24/20 21 03/25/2021 CBC WITH DIFFE RENTI AL/PL ATELE T WBC 10.1 x10e3 /uL 3.4-10 .8 Not Available [facility] ([facility]) [address] [facility], [place], [address], 03/28/2021 08:13:16 03/24/20 21 03/25/2021 CBC WITH DIFFE RENTI AL/PL ATELE T RBC 4.80 x10e6 /uL 4.14-5 .80 Not Available [facility] ([facility]) [address] [facility], [place], [address], 03/28/2021 08:13:16 03/24/2003/25/2021 CBC WITH DIFFE RENTI AL/PL ATELE T hemoglobin 15.7 g/dL 13.0-1 7.7 Not Available [facility] ([facility]) [address] [facility], [place], [address], 03/28/2021 08:13:16 03/24/2003/25/2021 CBC WITH DIFFE RENTI AL/PL ATELE T hematocrit 44.9 % 37.5-5 1.0 Not Available [facility] ([facility]) [address] [facility], [place], [address], 03/28/2021 08:13:16 03/24/2003/25/2021 CBC WITH DIFFE RENTI AL/PL ATELE T MCV 94 fL 79-97 Not Available [facility] ([facility]) [address] [facility], [place], [address], 03/28/2021 08:13:16 03/24/20 21 03/25/2021 CBC WITH DIFFE RENTI AL/PL ATELE T MCH 32.7 pg 26.6-3 3.0 Not Available [facility] ([facility]) [address] [facility], [place], [address], 03/28/2021 08:13:16 03/24/2003/25/2021 CBC WITH DIFFE RENTI AL/PL ATELE T MCHC 35.0 g/dL 31.5-3 5.7 Not Available [facility] ([facility]) [address] [facility], [place], [address], 03/28/2021 08:13:16 03/24/2003/25/2021 CBC WITH DIFFE RENTI AL/PL ATELE T RDW 12.1 % 11.6-1 5.4 Not Available [facility] ([facility]) [address] [facility], [place], [address], 03/28/2021 08:13:16 03/24/2003/25/2021 CBC WITH DIFFE RENTI AL/PL ATELE T platelets 303 x10e3 /uL 150-45 0 Not Available [facility] ([facility]) [address] [facility], [place], [address], 03/28/2021 08:13:16 03/24/2003/25/2021 CBC WITH DIFFE RENTI AL/PL ATELE T neutrophils 68 % not estab. Not Available [facility] ([facility]) [address] [facility], [place], [address], 03/28/2021 08:13:16 03/24/2003/25/2021 CBC WITH DIFFE RENTI AL/PL ATELE T lymphs 23 % not estab. Not Available [facility] ([facility]) [address] [facility], [place], [address], 03/28/2021 08:13:16 03/24/20 21 03/25/2021 CBC WITH DIFFE RENTI AL/PL ATELE T monocytes 7 % not estab. Not Available [facility] ([facility]) [address] [facility], [place], [address], 03/28/2021 08:13:16 03/24/20 21 03/25/2021 CBC WITH DIFFE RENTI AL/PL ATELE T eos 2 % not estab. Not Available [facility] ([facility]) [address] [facility], [place], [address], 03/28/2021 08:13:16 03/24/2003/25/2021 CBC WITH DIFFE RENTI AL/PL ATELE T basos 0 % not estab. Not Available [facility] ([facility]) [address] [place], [address], 03/28/2021 08:13:16 03/24/2003/25/2021 CBC WITH DIFFE RENTI AL/PL ATELE T immature cells HEAD KNITTING MACHINE FIXER Not Available [facility] ([facility]) [address] [place], [address], 03/28/2021 08:13:16 03/24/2003/25/2021 CBC WITH DIFFE RENTI AL/PL ATELE T neutrophils (absolute) 6.8 x10e3 /uL 1.4-7. 0 Not Available [facility] ([facility]) [address] [place], [address], 03/28/2021 08:13:16 03/24/2003/25/2021 CBC WITH DIFFE RENTI AL/PL ATELE T lymphs (absolute) 2.3 x10e3 /uL 0.7-3. 1 Not Available [facility] ([facility]) [address] [place], [address], 03/28/2021 08:13:16 03/24/2003/25/2021 CBC WITH DIFFE RENTI AL/PL ATELE T monocytes(ab solute) 0.7 x10e3 /uL 0.1-0. 9 Not Available [facility] ([facility]) [address] [place], [address], 03/28/2021 08:13:16 03/24/20 21 03/25/2021 CBC WITH DIFFE RENTI AL/PL ATELE T eos (absolute) 0.2 x10e3 /uL 0.0-0. 4 Not Available [facility] ([facility]) [address] [facility], [place], [address], 03/28/2021 08:13:16 03/24/20 21 03/25/2021 CBC WITH DIFFE RENTI AL/PL ATELE T baso (absolute) 0.0 x10e3 /uL 0.0-0. 2 Not Available [facility] ([facility]) [address] [facility], [place], [address], 03/28/2021 08:13:16 03/24/20 21 03/25/2021 CBC WITH DIFFE RENTI AL/PL ATELE T immature granulocytes 0 % not estab. Not Available [facility] ([facility]) [address] [facility], [place], [address], 03/28/2021 08:13:16 03/24/20 21 03/25/2021 CBC WITH DIFFE RENTI AL/PL ATELE T immature grans (abs) 0.0 x10e3 /uL 0.0-0. 1 Not Available [facility] ([facility]) [address] [facility], [place], [address], 03/28/2021 08:13:16 03/24/20 21 03/25/2021 CBC WITH DIFFE RENTI AL/PL ATELE T NRBC HEAD KNITTING MACHINE FIXER Not Available [facility] ([facility]) [address] [facility], [place], [address], 03/28/2021 08:13:16 03/24/20 21 03/25/2021 CBC WITH DIFFE RENTI AL/PL ATELE T hematology comments: HEAD KNITTING MACHINE FIXER Not Available [facility] ([facility]) [address] [facility], [place], [address], 03/28/2021 08:13:16 03/24/20 21 03/25/2021 COMP. METAB OLIC PANEL (14) glucose 101 mg/dL 65-99 above high normal Not Available [facility] ([facility]) [address] [facility], [place], [address], 03/28/2021 08:13:17 03/24/20 21 03/25/2021 COMP. METAB OLIC PANEL (14) BUN 17 mg/dL 8-27 Not Available [facility] ([facility]) [address] [facility], [place], [address], 03/28/2021 08:13:17 03/24/20 21 03/25/2021 COMP. METAB OLIC PANEL (14) creatinine 1.06 mg/dL 0.76-1 .27 Not Available [facility] ([facility]) [address] [facility], [place], [address], 03/28/2021 08:13:17 03/24/20 21 03/25/2021 COMP. METAB OLIC PANEL (14) eGFR if nonafricn AM 69 mL/mi n/1.7 3 >59 Not Available [facility] ([facility]) [address] [facility], [place], [address], 03/28/2021 08:13:17 03/24/20 21 03/25/2021 COMP. METAB [...] SN Task force . Not Available [facility] ([facility]) [address] [facility], [place], [address], 03/28/2021 08:13:17 03/24/20 21 03/25/2021 COMP. METAB OLIC PANEL (14) BUN/creatini ne ratio 16 10-24 Not Available [facility] ([facility]) [address] [facility] [place] [place], [address], 03/28/2021 08:13:17 03/24/20 21 03/25/2021 COMP. METAB OLIC PANEL (14) sodium 143 mmol/ L 134-14 4 Not Available [facility] ([facility]) [address] [facility] [place] [place], [address], 03/28/2021 08:13:17 03/24/20 21 03/25/2021 COMP. METAB OLIC PANEL (14) potassium 4.7 mmol/ L 3.5-5. 2 Not Available [facility] ([facility]) [address] [facility] [place] [place], [address], 03/28/2021 08:13:17 03/24/20 21 03/25/2021 COMP. METAB OLIC PANEL (14) chloride 100 mmol/ L 96-106 Not Available [facility] ([facility]) [address] [facility] [place] [place], [address], 03/28/2021 08:13:17 03/24/20 21 03/25/2021 COMP. METAB OLIC PANEL (14) carbon dioxide, total 24 mmol/ L 20-29 Not Available [facility] ([facility]) [address] [facility] [place] [place], [address], 03/28/2021 08:13:17 03/24/20 21 03/25/2021 COMP. METAB OLIC PANEL (14) calcium 9.5 mg/dL 8.6-10 .2 Not Available [facility] ([facility]) [address] [facility] [place] [place], [address], 03/28/2021 08:13:17 03/24/20 21 03/25/2021 COMP. METAB OLIC PANEL (14) protein, total 7.1 g/dL 6.0-8. 5 Not Available [facility] ([facility]) [address] [place], [address], 03/28/2021 08:13:17 03/24/20 21 03/25/2021 COMP. METAB OLIC PANEL (14) albumin 4.7 g/dL 3.7-4. 7 Not Available [facility] ([facility]) [address] [place], [address], 03/28/2021 08:13:17 03/24/20 21 03/25/2021 COMP. METAB OLIC PANEL (14) globulin, total 2.4 g/dL 1.5-4. 5 Not Available [facility] ([facility]) [address] [place], [address], 03/28/2021 08:13:17 03/24/20 21 03/25/2021 COMP. METAB OLIC PANEL (14) A/G ratio 2.0 1.2-2. 2 Not Available [facility] ([facility]) [address] [place], [address], 03/28/2021 08:13:17 03/24/20 21 03/25/2021 COMP. METAB OLIC PANEL (14) bilirubin, total 0.4 mg/dL 0.0-1. 2 Not Available [facility] ([facility]) [address] [place], [address], 03/28/2021 08:13:17 03/24/20 21 03/25/2021 COMP. METAB [...] 121 44 - 121 Not Available [facility] ([facility]) [address] [place], [address], 03/28/2021 08:13:17 03/24/20 21 03/25/2021 COMP. METAB OLIC PANEL (14) AST (SGOT) 26 IU/L 0-40 Not Available [facility] ([facility]) [address] [place], [address], 03/28/2021 08:13:17 03/24/20 21 03/25/2021 COMP. METAB OLIC PANEL (14) ALT (SGPT) 34 IU/L 0-44 Not Available [facility] ([facility]) [address] [place], [address], 03/28/2021 08:13:17 03/24/20 21 03/25/2021 UA WITH CULTU RE REFLE X specific gravity 1.019 1.005- 1.030 Not Available [facility] ([facility]) [address] [place], [address], 03/28/2021 08:13:18 03/24/20 21 03/25/2021 UA WITH CULTU RE REFLE X pH 6.0 5.0-7. 5 Not Available [facility] ([facility]) [address] [place], [address], 03/28/2021 08:13:18 03/24/20 21 03/25/2021 UA WITH CULTU RE REFLE X urine-color Yellow yellow Not Available [facility] ([facility]) [address] [place], [address], 03/28/2021 08:13:18 03/24/20 21 03/25/2021 UA WITH CULTU RE REFLE X appearance Clear clear Not Available [facility] ([facility]) [address] [facility], [place], [address], 03/28/2021 08:13:18 03/24/20 21 03/25/2021 UA WITH CULTU RE REFLE X WBC esterase Negati ve negati ve Not Available [facility] ([facility]) [address] [facility], [place], [address], 03/28/2021 08:13:18 03/24/20 21 03/25/2021 UA WITH CULTU RE REFLE X protein Negati ve negati ve/tra ce Not Available [facility] ([facility]) [address] [facility], [place], [address], 03/28/2021 08:13:18 03/24/20 21 03/25/2021 UA WITH CULTU RE REFLE X glucose Negati ve negati ve Not Available [facility] ([facility]) [address] [facility], [place], [address], 03/28/2021 08:13:18 03/24/20 21 03/25/2021 UA WITH CULTU RE REFLE X ketones Negati ve negati ve Not Available [facility] ([facility]) [address] [place], [address], 03/28/2021 08:13:18 03/24/20 21 03/25/2021 UA WITH CULTU RE REFLE X occult blood Trace negati ve abnormal Not Available [facility] ([facility]) [address] [place], [address], 03/28/2021 08:13:18 03/24/20 21 03/25/2021 UA WITH CULTU RE REFLE X bilirubin Negati ve negati ve Not Available [facility] ([facility]) [address] [facility], [place], [address], 03/28/2021 08:13:18 03/24/20 21 03/25/2021 UA WITH CULTU RE REFLE X urobilinogen ,semi-qn 0.2 mg/dL 0.2-1. 0 Not Available [facility] ([facility]) [address] [facility], [place], [address], 03/28/2021 08:13:18 03/24/20 21 03/25/2021 UA WITH CULTU RE REFLE X nitrite, urine Negati ve negati ve Not Available [facility] ([facility]) [address] [facility], [place], [address], 03/28/2021 08:13:18 03/24/20 21 03/25/2021 UA WITH CULTU RE REFLE X microscopic examination See below: Micro scopi c was indic ated and was perfo rmed. Not Available [facility] ([facility]) [address] [facility], [place], [address], 03/28/2021 08:13:18 03/24/20 21 03/25/2021 UA WITH CULTU RE REFLE X WBC None seen /hpf 0 - 5 Not Available [facility] ([facility]) [address] [facility], [place], [address], 03/28/2021 08:13:18 03/24/20 21 03/25/2021 UA WITH CULTU RE REFLE X RBC 0-2 /hpf 0 - 2 Not Available [facility] ([facility]) [address] [facility], [place], [address], 03/28/2021 08:13:18 03/24/20 21 03/25/2021 UA WITH CULTU RE REFLE X epithelial cells (non renal) None seen /hpf 0 - 10 Not Available [facility] ([facility]) [address] [facility], [place], [address], 03/28/2021 08:13:18 03/24/20 21 03/25/2021 UA WITH CULTU RE REFLE X epithelial cells (renal) HEAD KNITTING MACHINE FIXER Not Available [facility] ([facility]) [address], [place], [address], 03/28/2021 08:13:18 03/24/20 21 03/25/2021 UA WITH CULTU RE REFLE X casts None seen /lpf none seen Not Available [facility] ([facility]) [address], [place], [address], 03/28/2021 08:13:18 03/24/20 21 03/25/2021 UA WITH CULTU RE REFLE X cast type HEAD KNITTING MACHINE FIXER Not Available [facility] ([facility]) [address], [place], [address], 03/28/2021 08:13:18 03/24/20 21 03/25/2021 UA WITH CULTU RE REFLE X crystals HEAD KNITTING MACHINE FIXER Not Available [facility] ([facility]) [address], [place], [address], 03/28/2021 08:13:18 03/24/20 21 03/25/2021 UA WITH CULTU RE REFLE X crystal type HEAD KNITTING MACHINE FIXER Not Available [facility] ([facility]) [address], [place], [address], 03/28/2021 08:13:18 03/24/20 21 03/25/2021 UA WITH CULTU RE REFLE X mucus threads HEAD KNITTING MACHINE FIXER Not Available [facility] ([facility]) [address], [place], [address], 03/28/2021 08:13:18 03/24/20 21 03/25/2021 UA WITH CULTU RE REFLE X bacteria None seen none seen/f ew Not Available [facility] ([facility]) [address], [place], [address], 03/28/2021 08:13:18 03/24/20 21 03/25/2021 UA WITH CULTU RE REFLE X yeast HEAD KNITTING MACHINE FIXER Not Available [facility] ([facility]) [address] [place], [address], 03/28/2021 08:13:18 03/24/20 21 03/25/2021 UA WITH CULTU RE REFLE X trichomonas HEAD KNITTING MACHINE FIXER Not Available [facility] ([facility]) [address] [place], [address], 03/28/2021 08:13:18 03/24/20 21 03/25/2021 UA WITH CULTU RE REFLE X comment HEAD KNITTING MACHINE FIXER Not Available [facility] ([facility]) [address] [place], [address], 03/28/2021 08:13:18 03/24/20 21 03/25/2021 UA WITH CULTU RE REFLE X urinalysis reflex Commen t This speci men will not refle x to a Urine Cultu re. Not Available [facility] ([facility]) [address] [place], [address], 03/28/2021 08:13:18 03/24/20 21 03/25/2021 LIPID PANEL cholesterol, total 235 mg/dL 100-19 9 above high normal Not Available [facility] ([facility]) [address] [place], [address], 03/28/2021 08:13:19 03/24/20 21 03/25/2021 LIPID PANEL triglyceride s 157 mg/dL 0-149 above high normal Not Available [facility] ([facility]) [address] [place], [address], 03/28/2021 08:13:19 03/24/20 21 03/25/2021 LIPID PANEL HDL cholesterol 46 mg/dL >39 Not Available [facility] ([facility]) [address] [place], [address], 03/28/2021 08:13:19 03/24/20 21 03/25/2021 LIPID PANEL VLDL cholesterol concha 29 mg/dL 5-40 Not Available [facility] ([facility]) [address] [facility], [place], [address], 03/28/2021 08:13:19 03/24/20 21 03/25/2021 LIPID PANEL LDL chol calc ([facility]) 160 mg/dL 0-99 above high normal Not Available [facility] ([facility]) [address] [facility], [place], [address], 03/28/2021 08:13:19 03/24/20 21 03/25/2021 LIPID PANEL comment: HEAD KNITTING MACHINE FIXER Not Available [facility] ([facility]) [address] [facility], [place], [address], 03/28/2021 08:13:19 03/24/20 21 03/27/2021 THYRO ID STIMU LATIN G HORMO NE TSH-icma 1.6 uu/mL Refer ence Range : Non-P regna nt Adult 0.450 -4.50 0 Not Available [facility] [address] [facility], [place], [address], 03/28/2021 08:13:20 03/24/20 21 03/25/2021 PROST ATE-S [...] be inter prete d as absol la jolla evide nce of the prese nce or absen ce of cesario shelby se. Not Available [facility] ([facility]) [address] [facility], [place], [address], 03/28/2021 08:13:20 03/24/20 21 03/25/2021 VITAM IN [...] Basilia jacobs [place]: The Natio n[facility] Press . 2. Graham pineda [place], aRffaele rasmussen [place], Nicky off-F sumit i FLORES, et al. Evalu ation , treat ment, and preve ntion of vitam in D defic iency : an Endoc rine Socie ty clini concha pract ice guide line. JCEM. 2010; 96(7) :1911 -30. Not Available [facility] ([facility]) [address] [facility], [place], [address], 03/28/2021 08:13:21 11/24/19 22 12/15/2021 SURGI CONCHA PATHO LOGY REPOR T results . ACCES LOGAN: 804-[id number] RESPO NSIBL E PATHO LOGIS T: [...] 11/26 10:44 EDT PKB Perfo rmed at: [facility] [address] [place] [address] Phone : [phone] Gross Descr iptio n A. Recei fausto [...] [place]. [id number] x 3 / / 11/25 17:33 EDT Clini concha Histo ry NA Not Available [facility] (Lab) [address], [place], [address], 12/15/2021 09:40:20 11/26/19 22 11/26/2021 SURGI CONCHA PATHO LOGY REPOR T results . ACCES LOGAN: [id number] RESPO NSIBL E PATHO LOGIS T: [...] 11/26 10:44 EDT PKB Perfo rmed at: [facility] [address] [place] [address] Phone : Gross Descr iptio n A. [...] by [place]. 96332 x 3 / / 11/25 17:33 EDT Clini concha Histo ry NA Not Available [facility] (Lab) [address], [place], [address], 11/26/2021 10:44:08 05/20/2005/20/2021 MRI, prost ate, w/wo contr ast No observ ation record ed. [facility] ([facility]) [address] [place] [address], [phone], 05/22/2021 08:38:37 Result Notes None recorded. Problems Name Problem SNOMED Code Status Onset Date Resolution Date Notes Provider Name and Address Organization Details Recorded Time Allergic conjunctivitis 844224389 Active Nicolasa napoles [facility] [place] 8 13:23:11 Sleep apnea 70178413 Active 2016 Nicolasa napoles [facility] [place] 8 13:22:58 Vitamin D deficiency 52214223 Active 2016 Nicolasa napolse [facility]14 [place] 8 13:23:14 Osteoarthritis 065303997 Active 2016 Nicolasa Perdue null, [place] - [facility] [place] 8 13:23:18 Memory impairment 344529090 Active 2016 Nicolasa Perdue null, [place] [facility]14 [place] 7 15:52:18 Generalized anxiety disorder 66508639 Active 2017 Nicolasa Perdue null, [facility] [place] 8 13:45:01 Obesity 964663224 Active 2017 Nicolasa Perdue null, [facility] [place] 8 08:42:14 Basal cell carcinoma of skin 478012602 Active 2019 BAKARI RAHMAN MD [address], [address], [facility]14 [place] 0 13:54:56 Skin lesion 27132145 Active 2021 BAKARI RAHMAN MD [address],[facility] [address], [place], [address], [facility]14 [place] 2 16:23:50 Persistent insomnia [id number] Active Nicolasa Perdue null, [address] 8 13:23:21 Testicular hypofunction 128290246 Active Nicolasa Perdue null, [place] - [facility]14 [place] 8 13:23:19 Gastroesophage al reflux disease 936657856 Active Nicolasa Perdue null, [place] - [address] 8 13:23:08 Pain of hip region 96482033 Active Nicolasa Perdue null, [facility] [place] 8 13:23:25 Allergic rhinitis 00021774 Active Nicolasa [place] null[place] - [facility]14 [place] 8 13:23:16 Asthma 435823980 Active Nicolas[place] - [facility]14 [place] 8 13:23:05 Pure hypercholester olemia 628893167 Active Nicolasa [place] null[place] - [facility]14 [place] 8 13:23:07 Problem Notes None recorded. Procedures Surgical History Date Name Laterality Status Provider Name and Address Organization Details Recorded Time 11/24/19 22 Blank Procedure Template completed BAKARI RAHMAN MD [address], [place], [address], [address] 11/23/2021 13:54:10 03/18/20 21 Medicare Wellness CPT Code, Subsequent completed Tracy Reagan, [address] 03/18/2021 13:13:01 03/17/20 20 Medicare Wellness CPT Code, Subsequent completed Tracy Reagan, [address] 03/17/2020 10:36:00 11/08/19 20 Telehealth Communication completed Liseth Le, [address] 11/08/2019 08:27:00 04/26/20 19 Removal of Foreign Body completed Raleigh Downey MD [address], [place], [address], [address] 04/26/2019 12:57:03 03/12/20 19 Medicare Wellness CPT Code, Subsequent completed Tracy Reagan, [address] 03/12/2019 10:10:40 03/07/20 18 Medicare Wellness CPT Code, Subsequent completed Sheri Collins, [address] 03/07/2018 13:19:38 02/10/20 17 Medicare Wellness CPT Code, Subsequent completed Scarlett Hanna, [address] 02/09/2017 13:16:21 07/20/19 17 Removal of foreign body - Eye completed Nicolasa Perdue [address] 07/20/2016 11:49:56 07/18/19 12 Colonoscopy completed Sheri Collins [address] 11/22/2016 09:39:16 hernia completed BAKARI RAHMAN MD [address], [place], [address], [address] 09/04/2019 13:51:45 Imaging Results Imaging Date Name Status LastModified by Organiz ation Details LastModified Time 05/20/2021 MRI, prostate, w/wo contrast completed [facility] ([facility]) [address] [place] [address], [id number], 05/22/2021 08:38:37 Procedure Notes None recorded. Medical Equipment None Reported. Allergies Allergen ID Allergen Name Allergen Category Reaction Reaction Severity Criticality Documentation Date Start Date Code Code System Note Provider Name and Address Organization Details Recorded Time 115759 Product containin g 3-hydroxy -3-methyl glutaryl- coenzyme A reductase inhibitor (product) medicatio n other moderate Not available 01/12/2016 75733 009 SNOMED Palpi tatio ns Quique Stephenson [facility], [place] - [facility] [place] 6 14:54:04 Medications Name Sig Start Date [...] Not Available Not Available fluzone high-dose pf 5988-9302 .5 ml mehrdad active Not Available Not Available Not Available fluzone high-dose pf 5713-7891 .5 ml mehrdad active Not Available Not [...] Available polymyxin b sulfate/t rimethopr im sulfate 40630-4.1 unit/ml-% soln 02/09 completed Not Available Not [...] Not Available Not Available Not Available fluad 6553-8929 .5 ml mehrdad 06/11 completed Not Available Not Available Not Available sulfameth oxazole/t rimethopr im ds 800-160 mg tabs active Not Available Not Available Not Available hydrocodo ne/acetam inophen 5-325 mgtabs active Not Available Not Available Not Available fluzone high-dose pf 5643-7247 .5 ml mehrdad 06/03 completed Not Available [...] Not Available Not Available Not Available Flulaval 6437-4365 45 mcg (15 mcg x 3)/0.5 mL intramusc ular suspensio n active Not Available Not Available Not Available Anoro Ellipta 62.5 mcg-25 mcg/actua tion powder for inhalatio n Inhale 1 puff every day by inhalati on route for 90 days. 2015 active Not Available Not Available Not Avai lable Fluvirin 6525-9963 45 mcg (15 mcg x 3)/0.5 mL intramusc ular suspensio n INJECT 0.5 ML INTRAMUS CULARLY DIRECTED . active Not Available Not Available No t Available Fluzone High-Dose 2014- (PF) 180 mcg/0.5 mL intramusc ular syringe active Not Available Not Available Not Available Fluzone High-Dose 4116-8281 (PF) 180 mcg/0.5 mL intramusc ular syringe ADM 0.5ML IM UTD active Not Available Not Available No t Available Fluzone High-Dose 3439-4793 (PF) 180 mcg/0.5 mL intramusc ular syringe [...] Available Not Available Not Available Fluad Quad 7895-4172 (65yr up)(PF) 60 mcg (15 mcg x 4)/0.5mL IM syringe ADM 0.5ML IM UTD 08/04 completed Not Available Not Available Not Available Vitals Date Recorded Body height Body mass index (BMI) Body weight Heart rate Respiratory rate Body temperature Systolic blood pressure Diastolic blood pressure Provider Name and Address Organization Details Last Updated DateTime 1 163.83 cm 33.9 kg/m2 37849.2 7 g 45 /min 18 /min 98 [degF] 174 mm[Hg] 84 mm[Hg] Tracy Reagan [facility] [place] 13:22:04 Date Recorded Body height Body mass index (BMI) Body weight Heart rate Respiratory rate Body temperature Systolic blood pressure Diastolic blood pressure Provider Name and Address Organization Details Last Updated DateTime 163.83 cm 33.8 kg/m2 89590.4 7 g 87 /min 18 /min 97.9 [degF] 184 mm[Hg] 96 mm[Hg] Tracy Reagan [facility]14 [place] 14:04:53 Date Recorded Body height Provider Name an d Address Organization Details Last Updated DateTime 10/26/2021 163.83 cm Tima Decker [address] 10/26/2021 15:43:05 Date Recorded Body height Provider Name an d Address Organization Details Last Updated DateTime 11/23/2021 163.83 cm Tima Decker [address] 11/23/2021 13:16:30 Date Recorded Body height Provider Name an d Address Organization Details Last Updated DateTime 03/26/2022 163.83 cm Georgina Fish LPN [address] 03/26/2022 15:27:17 Social History Question Answer Notes LastModified by Organizat ion Details LastModified Time Tobacco Smoking Status Former Smoker Quit 1964 Aury Sandoval CMA [facility] [place] 09/04/2019 13:22:36 Do You Have An Advance Directive? No Information not available 02/09/2017 Are You Blind Or Do You Have Difficulty Seeing? No Information not available 02/09/2017 What Is Your Level Of Caffeine Consumption? None [email or web address] Information not available 03/18/2021 Are You Deaf Or Do You Have Serious Difficulty Hearing? No Information not available 02/09/2017 What Type Of Diet Are You Following? REGULAR [email or web address] Information not available 02/16/2013 When Did You Quit Smoking? 1-5yearssinc elastcigaret te [email or web address] Information not available 03/18/2021 Live Alone Or With Others? With Others [email or web address] Information not available 04/23/2013 Do You Feel Safe At Home? Yes Information not available 02/09/2017 Marital Status [email or web address] Informati on not available 02/16/2013 Do You Have A Medical Power Of Chronic Care Nurse? No Information not available 03/18/2021 What Was [...] not available 09/04/2019 General Stress Level Low [email or web address] Information not available 02/16/2013 Do You Use Sunscreen Routinely? No Information not available 02/09/2017 Has Tobacco Cessation Counseling Been Provided? No Information not available 03/18/2021 How Many Years Have You Smoked Tobacco? 2 [email or web address] Information not available 09/04/2019 Do You Have Difficulty Walking Or Climbing Stairs? No Information not available 02/09/2017 Sex: Unknown Functional Status Question Answer Note LastModified by Organizat ion Details LastModified Time How many times per week do you consume alcohol? 1-2 times per week [email or web address] Information not available 03/18/2021 Do you use any illicit or recreational drugs? No [email or web address] Information not available 03/18/2021 Do you or have you ever used any other forms of tobacco or nicotine? No Information not available 03/18/2021 What is your level of alcohol consumption? Occasional Information not available 02/16/2013 Do you have difficulty doing errands alone? 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 No Information not available 02/09/2017 What is your exercise level? Occasional [email or web address] Information not available 02/16/2013 Mental Status Question [...] Not available 11/2016 16:28:24 Mother Old-age 87 [email or web address] Not available 07/22/2016 16:28:24 Notes:2 children alive and w ell Medical History Condition Response Hyperlipidemia Y Asthma Y GERD/Reflux Y Hepatitis Y Immunizations Vaccine Type Date Status Note Provider Nam e and Address Organization Details Recorded Time Influenza, split virus, trivalent, preservative 4 completed Liseth Le RMA null, [address] 06/11/2019 13:01:11 Influenza, high-dose, trivalent, PF 5 completed Not Available [facility] 08/18/2019 02:11:28 Pneumococcal conjugate PCV 13 5 completed Tracy Reagan RMA null, [address] 03/18/2021 13:14:30 zoster live 0 completed Tracy Reagan RMA null, [address] 03/18/2021 13:14:31 pneumococcal, unspecified formulation 0 completed Tracy Reagan RMA null, [address] 03/18/2021 13:14:30 Influenza, split virus, trivalent, preservative 3 completed Tracy Reagan RMA null, [facility] [place] 03/18/2021 13:14:31 tetanus toxoid, unspecified formulation 0 completed Tracy Reagan RMA null, [facility] [place] 03/18/2021 13:14:30 Influenza, split virus, trivalent, preservative 4 completed Tracy Reagan RMA null, [facility] [place] 03/18/2021 13:14:30 pneumococcal, unspecified formulation 0 completed Scarlett Jacques, BILINGUAL HR GENERALIST null, [address] 02/09/2017 13:19:19 tetanus toxoid, unspecified formulation 0 completed Scarlett Jacques, BILINGUAL HR GENERALIST null, [facility] [place] 02/09/2017 13:19:19 Influenza, split virus, trivalent, preservative 3 completed Scarlett Jacques, BILINGUAL HR GENERALIST null, [address] 02/09/2017 13:19:19 Influenza, split virus, quadrivalent, preservative 3 completed Not Available [facility] 08/18/2019 02:11:10 Influenza, split virus, trivalent, preservative 4 completed Not Available [facility] 08/18/2019 02:11:10 Influenza, split virus, trivalent, preservative 2 completed Not Available [facility] 08/18/2019 02:11:10 zoster live 0 completed Scarlett Jacques, BILINGUAL HR GENERALIST null, [address] 02/09/2017 13:19:19 Past Encounters Encounter ID Performer Location Encounter Start Date Encounter Closed Date Diagnosis/Indication Diagnosis SNOMED-CT Code Diagnosis ICD10 Code Diagnosis Note [id number] [facility] [address] [place] [address] [place] [address] 01/29/2013 15:24:44 01/30/2013 09:26:15 [id number] [facility] [address] [place] [address] [place] [address] 04/23/2013 15:19:32 04/23/2013 16:51:22 Fatigue 97267173 Cough [id number] [facility] [address] [place] [address] 06/04/2013 10:16:56 06/04/2013 12:45:31 Lipoma of skin 567983080 [id number] [facility] [address] [place] [address] 06/18/2013 15:46:39 06/19/2013 09:56:43 Lipoma of skin 807889985 [id number] [facility] [address] [facility] [address] 11/19/2013 15:54:48 11/19/2013 16:58:21 Asthma 182219529 Acute bronchitis 14522298 Cough 17709167 [id number] [facility] [address] [place] [address] 12/25/2013 13:05:51 12/26/2013 16:36:58 Pure hypercholesterolemia 996907718 Adult heal th examination 409794904 Pain of hip region 94797950 Sleep apnea 24320726 Allergic rhinitis 06117688 Gastroesop hageal reflux disease 517573739 Body mass index 30+ - obesity 534836837 Screening for malignant neoplasm of rectum 908533705 [id number] [facility] [address] [address] 04/04/2014 13:07:47 04/04/2014 14:33:36 Allergic rhinitis 62466573 Skin lesion 25561869 [id number] [facility] [address] [address] 01/07/2015 13:02:06 01/07/2015 17:27:58 Adult health examination 448193380 Asthma 557675983 Sleep apnea 47252134 Memory impairment 177574414 Body mass index 30+ - obesity 910951645 Administra tion of pneumococcal vaccine 39578503 Screening for malignant neoplasm of rectum 861025047 [id number] [facility] [address] [facility] [address] 01/28/2015 10:44:03 01/28/2015 11:23:40 Pure hypercholesterolemia 273985386 Medication monitoring 218964796 [id number] MD [facility] [place] [address] [place] [address] 04/01/2015 10:00:35 04/01/2015 17:36:22 Pure hypercholesterolemia 368795527 Senile hyperkeratosis 752562958 [id number] Jacki Mayen MD [facility] [address] [place] [address] 07/07/2015 13:07:15 07/07/2015 14:00:36 Sleep apnea 26876349 G47.30 Obesity 147515674 E66.9 [id number] [facility] [address] [facility] [place] [address] 08/07/2015 13:29:36 08/07/2015 15:17:15 Upper respiratory infection 04577037 J06.9 Cough 27418870 R05 [id number] [facility] [address] [place] [address] [place] [address] 09/18/2015 14:21:19 09/18/2015 16:17:56 Pain in thumb 186285021 M79.645 Hand pain 04844240 M79.6 42 [id number] Jacki Mayen MD [facility] [address] [place] [address] [place] [address] 10/08/2015 08:56:56 10/08/2015 11:29:36 Asthma 937502520 J45.909 Allergic rhinitis 897681 04 J30.9 Cough 58393811 R05 Allergic conjunctivitis 965059536 H10.13 Acute bronchitis 9628877 2 J20.9 [id number] [facility] [address] [facility] [place] [address] 11/20/2015 14:08:59 11/20/2015 15:42:38 Allergic rhinitis 77134957 J30.9 Allergic conjunctivitis 727232337 H10.13 Asthma 407549860 J45.90 9 [id number] [facility] [address] [place] [address] [place] [address] 12/08/2015 09:00:19 12/08/2015 13:22:40 Tinea sherriuris 248665022 B35.6 [id number] Jacki Mayen MD [facility] [address] [place] [address] [place] [address] 01/12/2016 12:58:53 01/12/2016 16:35:25 Adult health examination 859943389 Z00.01 Z72.89 Z79.899 N42.9 Z12.5 E78.5 E55.9 Fatigue 89112777 R53.83 Poor short -term memory 793545225 R41.3 Acute félix l impairment 470581033 N28.9 Essential hypertension 72493953 I10 Screening for malignant neoplasm of rectum 480837824 Z12.12 Pain in thumb 359780423 M79.645 Hypercholesterolemia 136 12338 E78.0 Sleep apnea 22583536 G47 .30 [id number] Jacki Mayen MD [facility] [address] [place] [place] [address] 02/11/2016 10:45:29 02/11/2016 13:36:44 Essential hypertension 64288991 I10 Hypogonadism 49426283 E2 9.1 [id number] [facility] [address] [place] [place] [address] 03/04/2016 15:27:05 03/04/2016 16:45:58 Tinea cruris 819553690 B35.6 Palpitations 87116344 R0 0.2 [id number] Jacki Mayen MD [facility] [address] [place] [address] [place] [address] 03/11/2016 10:00:58 03/11/2016 15:30:44 Palpitations 60589585 R00.2 [id number] Jacki Mayen MD [facility] [address] [place] [address] [place] [address] 04/14/2016 14:46:03 04/14/2016 16:43:04 Premature atrial contraction 862419287 I49.1 Ventricula r premature beats 83539080 I49.3 Transient cerebral ischemia 522993925 G45.9 [id number] Robert Hernandez MD [facility] [place] [facility] [address] [facility] [address] [place] [address] 05/24/2016 15:03:00 05/24/2016 16:02:33 [id number] Jacki Mayen MD [facility] [address] [place] [address] [place] [address] 06/29/2016 14:05:17 06/29/2016 16:19:26 Acute bronchitis 60769476 J20.9 Asthma 491133808 J45.90 9 Cough 59669600 R05 [id number] [facility] [address] [place] [place] [address] 07/20/2016 11:13:42 07/20/2016 14:25:53 Foreign body in eye 0336811736 44071 H44.585 [id number] Jacki Mayen MD [facility] [address] [place] [address] 07/22/2016 15:23:30 07/22/2016 16:58:21 Chalazion 5291973 H00.13 [id number] Jacki Mayen MD [facility] [address] [place] [place] [address] 02/09/2017 12:14:27 02/09/2017 15:00:48 Adult health examination 755809810 Z00.00 Screening for disorder 119609683 Z13.9 Sleep apnea 14801242 G47 .30 Adverse re action to drug 24729063 T88.7XXA On Zocor- feels bad Pain in right foot 26857 65804 57713 M79.671 Vitamin D deficiency 347 96372 E55.9 Osteoarthritis 046863485 M19.90 Poor short -term memory 471428235 R41.3 Impotence 507063941 N52. 9 Screening for malignant neoplasm of colon 002518555 Z12.11 [id number] Jacki Mayen MD [facility] [address] [place] [address] 06/03/2017 10:23:50 06/03/2017 13:16:31 Obesity 793145913 E66.9 Poor short -term memory 333963943 R41.3 [id number] Jacki Mayen MD [facility] [address] [place] [address] 07/06/2017 15:44:58 07/06/2017 16:36:07 Memory impairment 551128559 R41.3 Medication monitoring 39 4221953 Z51.81 Obesity 870533637 E66.9 Impotence 416424628 N52. 9 [id number] Jacki Mayen MD [facility] [address] [facility] [place] [address] 10/12/2017 09:57:08 10/12/2017 10:43:43 Essential hypertension 63778805 I10 Candidiasis of skin 4988 3006 B37.2 Generalize d anxiety disorder 40570240 F41.1 Allergic rhinitis 894891 04 J30.9 [id number] Jacki Mayen MD [facility] [address] [place] [address] [place] [address] 12/21/2017 15:14:38 12/21/2017 16:10:50 Difficulty maintaining weight loss 855017163 E66.9 Obesity 359805453 E66.9 [id number] Jacki Mayen MD [facility] [address] [facility] [address] 03/07/2018 13:15:21 03/07/2018 15:22:34 Adult health examination 268857671 Z00.00 Screening for disorder 715219637 Z13.89 Obesity 502780942 E66.9 Pure hypercholesterolemia 522495762 E78.00 Gastroesop hageal reflux disease 988056703 K21.9 Vitamin D deficiency 347 75916 E55.9 Asthma 209006857 J45.90 9 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 Generalize d anxiety disorder 67229740 F41.1 Sleep apnea 09114666 G47 .30 Screening for malignant neoplasm of colon 448123827 Z12.11 Z12.12 [id number] Jacki Mayen MD [facility] [address] [place] [address] [place] [address] 05/16/2018 08:17:50 05/16/2018 11:06:26 Obesity 800113130 E66.9 Sleep apnea 74728105 G47 .30 [id number] Jacki Mayen MD [facility] [address] [place] [address] 06/16/2018 10:07:32 06/16/2018 11:19:36 Gout 35164491 M10.9 Memory impairment 141691 006 R41.3 [id number] Jacki Mayen MD [facility] [address] [place] [address] 08/14/2018 09:26:24 08/14/2018 12:32:33 Generalized anxiety disorder 24596315 F41.1 Memory impairment 759027 006 R41.3 Palpitations 95642376 R0 0.2 [id number] [facility] [address] [place] [address] 09/04/2018 11:02:21 09/04/2018 13:03:57 Allergic rhinitis 62425448 J30.9 Palpitations 51430574 R0 0.2 Memory impairment 940452 006 R41.3 [id number] Jacki Mayen MD [facility] [address] [place] [place] [address] 10/13/2018 14:18:19 10/13/2018 16:54:25 Ventricular tachycardia 17086798 I47.2 Palpitations 77633858 R0 0.2 Lesion of skin of face 2965927872 06 L98.9 [id number] [facility] [address] [place] [place] [address] 11/30/2018 09:28:23 11/30/2018 13:21:54 Nonsustained ventricular tachycardia 718437274 I47.2 Left ventr icular hypertrophy 43570644 I51.7 Memory impairment 202948 006 R41.3 Insomnia 019142921 G47.0 0 Allergic rhinitis 694521 04 J30.9 [id number] Jacki Mayen MD [facility] [address] [place] [place] [address] 12/28/2018 13:20:03 12/28/2018 15:21:08 Candidiasis of skin 98879948 B37.2 Memory impairment 116362 006 R41.3 Wound of skin 335976459 T14.8XXA Osteoarthr itis of joint of hand 31927612 M19.754 [id number] Jacki Mayen MD [facility] [address] [place] [place] [address] 03/02/2019 14:32:33 03/02/2019 16:21:35 Impetigo 10178295 L01.00 [id number] Jacki Mayen MD [facility] [address] [place] [address] [facility] [place] [address] 03/12/2019 09:36:33 03/12/2019 13:19:23 Adult health examination 029419676 Z00.00 Screening for disorder 140923165 Z13.89 Depression screening 171 154349 Z13.31 Pure hypercholesterolemia 967894313 E78.00 Essential hypertension 20515096 I10 Fatigue 78198924 R53.83 Screening for malignant neoplasm of prostate 978444839 Z12.5 Memory impairment 144980 006 R41.3 Medication monitoring 39 5314332 Z51.81 Generalize d anxiety disorder 25433305 F41.1 Low back pain 845292717 M54.5 Pain in right thumb 1076 559743 147304 M79.644 Dementia 36785184 F03.90 Asthma 264609443 J45.90 9 Screening for malignant neoplasm of colon 141086752 Z12.11 Z12.12 [id number] Jacki Mayen MD [facility] [address] [place] [address] [facility] [address] [place] [address] 04/16/2019 08:58:10 04/16/2019 10:23:22 Pain in thumb 052259367 M79.504 [id number] Raleigh Downey MD [facility] [address] [place] [address] 04/26/2019 12:09:46 04/26/2019 13:01:13 Retained foreign body in eye 64948239 H44.709 flushed clear [id number] Jacki Mayen MD [facility] [address] [place] [address] [place] [address] 06/04/2019 13:05:17 06/04/2019 15:30:04 Ingrowing nail 014465344 L60.0 [id number] Jacki Mayen MD [facility] [address] [place] [address] [place] [address] 06/11/2019 12:46:50 06/11/2019 14:29:07 Pain of hip region 50948543 M25.559 Hand pain 33341064 M79.6 41 M10.9 Fatigue 21618464 R53.83 Nausea 998126988 R11.0 Abdominal pain 31454506 R10.9 Indigestion 608695602 K3 0 Dementia 28901887 F03.90 Anxiety 95872304 F41.9 Muscle weakness 39243040 M62.81 [id number] [facility] [address] [place] [address] [place] [address] 06/21/2019 10:37:40 06/21/2019 13:07:55 Fatigue 23292748 R53.83 Abdominal pain 25214214 R10.9 Muscle weakness 00101746 M62.81 [id number] Jacki Mayen MD [facility] [address] [place] [address] [place] [address] 06/29/2019 11:09:30 06/29/2019 14:23:48 Postoperative wound infection 68966414 T81.40XA right hand [id number] Jacki Mayen MD [facility] [address] [place] [address] [place] [address] 07/26/2019 12:50:00 07/26/2019 13:52:47 Pain in throat 698540802 R07.0 Pharyngitis 240502385 J0 2.9 Lesion of skin of face 9946288307 06 L98.9 [id number] BAKARI RAHMAN MD [facility] [address] [place] [address] 09/04/2019 12:42:04 09/04/2019 13:39:11 Basal cell carcinoma of skin 976836642 C44.91 [id number] Jacki Mayen MD [facility] [address] [place] [address] [place] [address] 09/11/2019 15:07:19 09/11/2019 16:27:39 Asthma 083514016 J45.909 Poor short -term memory 874322847 R41.3 [id number] Jacki Mayen MD [facility] [address] [place] [address] [place] [address] 11/08/2019 08:14:39 11/08/2019 09:38:58 Acute gastroenteritis 94678429 K52.9 Nausea and vomiting 1693 2000 R11.2 [id number] Jacki Mayen MD [facility] [address] [place] [address] 12/11/2019 14:05:02 12/11/2019 15:39:56 Abdominal pain 24317361 R10.9 Nausea 280148904 R11.0 Muscle weakness 10905048 M62.81 Fatigue 53117775 R53.83 Diarrhea 03204359 R19.7 Gastritis 1085146 K29.70 Dizziness 342373320 R42 [id number] BAKARI RAHMAN MD [facility] [address] [place] [address] 12/14/2019 14:08:04 12/14/2019 14:41:59 Basal cell carcinoma of skin 029218747 C44.91 [id number] Jacki Mayen MD [facility] [address] [place] [address] 01/15/2020 10:37:28 01/15/2020 12:40:42 Gastroesophageal reflux disease 253156069 K21.9 Gastric ulcer 240950345 K25.9 Abdominal pain 81918518 R10.9 [id number] Jacki Mayen MD [facility] [address] [place] [address] 03/10/2020 08:18:12 03/10/2020 13:09:14 Pain in both feet 0365497343 6215164 M79.671 M79.672 Testicular hypofunction 419784754 E29.1 Pure hypercholesterolemia 798212882 E78.00 Vitamin D deficiency 347 58081 E55.9 Fatigue 73037231 R53.83 Pain in left knee 821369 9462 76096 M25.562 [id number] Jacki Mayen MD [facility] [address] [address] 03/17/2020 13:03:43 03/17/2020 14:59:03 Adult health examination 922684045 Z00.00 Screening for disorder 303243550 Z13.89 Depression screening 171 380283 Z13.31 Gastroesop hageal reflux disease 330799537 K21.9 Generalize d anxiety disorder 21230830 F41.1 Medication monitoring 39 5454547 Z51.81 Asthma 051793188 J45.90 9 Dementia 11778168 F03.90 [id number] Jacki Mayen MD [facility] [address] [address] 03/27/2020 15:03:52 03/27/2020 15:37:08 Pain in left knee 7894460223 73377 M25.562 [id number] [facility] [address] [address] 04/17/2020 15:50:16 04/17/2020 16:45:04 Prostate specific antigen above reference range 210063621 R97.20 Prostate mass 032746784 R19.09 [id number] Jacki Mayen MD [facility] [address] [address] 07/14/2020 14:09:45 07/14/2020 16:03:43 Onychomycosis 813148078 B35.1 [id number] Jacki Mayen MD [facility] [address] [place] [address] 08/04/2020 11:04:06 08/04/2020 12:41:31 Polyp of colon 94386104 K63.5 Pruritus ani 31112728 L2 9.0 [id number] Jacki Mayen MD [facility] [address] [place] [address] 08/11/2020 15:48:23 08/11/2020 17:03:27 Dark stools 82392824 R19.5 Tinea cruris 142561243 B 35.6 [id number] Jacki Mayen MD [facility] [address] [place] [address] 08/20/2020 13:30:52 08/20/2020 14:43:47 Onychomycosis 281534660 B35.1 Asthma 520466802 J45.90 9 Essential hypertension 94656402 I10 [id number] Jacki Mayen MD [facility] [address] [place] [address] 08/25/2020 13:30:52 08/25/2020 15:10:46 Peptic ulcer 22957152 K27.9 Indigestion 369752377 K3 0 Nausea 131505605 R11.0 [id number] Jacki Mayen MD [facility] [address] [place] [address] 09/23/2020 13:30:49 09/23/2020 15:53:09 Peptic ulcer 72189451 K27.9 Gastroesop hageal reflux disease without esophagitis 810488194 K21.9 [id number] Jacki Mayen MD [facility] [address] [place] [address] 12/24/2020 13:36:18 12/24/2020 16:07:51 Gastroesophageal reflux disease 161343128 K21.9 Tinea corporis 75248839 B35.4 [id number] Jacki Mayen MD [facility] [address] [facility] [place] [address] 03/18/2021 12:49:08 03/18/2021 14:19:00 Adult health examination 027848575 Z00.00 Screening for disorder 107394952 Z13.89 Depression screening 171 647360 Z13.31 Pure hypercholesterolemia 962560914 E78.00 Vitamin D deficiency 347 31391 E55.9 Testicular hypofunction 435948021 E29.1 Fatigue 05411845 R53.83 Gastroesop hageal reflux disease 853886174 K21.9 Memory impairment 584557 006 R41.3 Obesity 993302931 E66.9 Essential hypertension 64669374 I10 [id number] Jacki Mayen MD [facility] [address] [facility] [place] [address] 04/10/2021 13:50:11 04/10/2021 15:03:21 Constipation 86969007 K59.00 [id number] BAKARI RAHMAN MD [facility] [address] [facility] [address] [place] [address] 10/26/2021 15:25:17 10/26/2021 16:02:03 Basal cell carcinoma of skin 986064982 C44.91 Skin lesion 95708930 L98 .9 [id number] BAKARI RAHMAN MD [facility] [address] [facility] [address] [place] [address] 11/23/2021 13:11:11 11/23/2021 13:45:52 Basal cell carcinoma of skin 675961828 C44.91 Skin lesion 84915051 L98 .9 [id number] BAKARI RAHMAN MD [facility] [address] [facility] [address] [place] [address] 03/26/2022 15:17:14 03/26/2022 15:27:56 Basal cell carcinoma of skin 391187730 C44.91 Health Concerns Section Related Observation LastModified by Organization Detai ls LastModified Time None Recorded Concern Status LastModified by Organization Details LastModified Time None Recorded Advance Directives Directive N: Payers Insurance Date Sequence Insurance Name Policy Number Policy Glass Covered Member ID Glass Member ID Guarantor Name 03/29/2022 1 [employer] (MEDICARE REPLACEMENT HMO) Oswaldo Young [id number] 1 [id number] Oswaldo Young Notes Date Note Type [...] memory and asthma Jacki Mayen MD [address], [place], [address], [facility] [place] 03/18/2021 14:22:16 04/10/2021 text/html This patient is [...] to his colon Jacki Mayen MD [address], [place], [address], [facility] [place] 04/10/2021 21:06:05 10/26/2021 text/html the patient repo [...] not becoming pathologic. BAKARI RAHMAN MD [address] [facility], [place], [address], [facility] [place] 10/26/2021 16:24:17 11/23/2021 text/html The patient came in today for removal of the basal cell carcinoma from his right cheek. He also came for biopsy of the lesion on the medial cheek and the right side of the nose. BAKARI RAHMAN MD [address], [place], [address], [facility] [place] 11/23/2021 13:58:19 03/26/2022 text/html The patient was concerned about some mild erythema on his right cheek surgical site. No fevers or chills. No drainage. BAKARI RAHMAN MD [address], [place], [address], [facility] [place] 03/26/2022 15:32:20
--- OUTSIDE RECORDS SUMMARY | 2024-12-03 07:51 | XMS_ITS | Data Portability ---
Author Organization [place] [facility], [facility], [facility] Address [address] [place] [address] Care Team Providers Care Logging Equipment Operator Name Role Phone JACKI MAYEN Primary Care Provider [phone] Assessment Encounter Date Assessment Date Assessment LastModified by Organization Details LastModified Time 08/06/2021 08/06/2021 Uncle by ptosis of the right first fingernail debridement with Albanian toenail lateral and binocular microscope down to healthy tissue local care including vinegar or what ever drops he got at the pharmacy but Lamisil 250 daily for 90 days. Reassess in 3 months to see if it is better [email or web address] Not available 08/06/2021 12:41:02 08/20/2021 08/20/2021 Basal cell carcinoma the face recommend plastic surgical removal other lesions are benign. Make necessary referral [email or web address] Not available 08/20/2021 14:35:09 03/24/2022 03/24/2022 1. [...] office. Follow up other ansari as needed. [email or web address] Not available 03/24/2022 14:01:11 Plan of Treatment Reminders Order Date Submit Date Provider Last Modified By Organization Details Last Modified Time Details Appointments None recorded. Lab noninvasive colorectal cancer DNA + occult blood screening, QL, stool 2021 [place] [employer] (Cologuard Orders Only), [address], [address], [place], [address], 22:18:26 Referral urologist referral - Please call the patient to schedule an appointment . 2021 022 [id number] Ricki Ellis MD ([facility]), [address] [place] [address] Rd, [address], [place], [address], 14:53:17 plastic surgeon referral - please call pt to schedule appointment 2021 022 [email or web address] 15 Derian Lopez MD, [address] [place] [address], [facility] [address], [address], 16:27:18 Procedures None recorded. Surgeries None recorded. Imaging None recorded. Medication Orders terbinafine HCl 250 mg tablet 2021 022 [id number] [id number], [address], [address], 10:51:20 Patient TargetsNo targets recorded. Patient Instructions Encounter Date Encounter Id Patient Instructions Last Modified By Organization Details Last Modified Time 03/24/2022 [id number] advance directives: care instructions [email or web address] Not available 03/24/2022 14:01:45 learning about living stokes [email or web address] Not available 03/24/2022 14:01:45 do not rescuscitate education [email or web address] Not available 03/24/2022 14:01:45 Advance Directives Education w/sample forms for Living Will/Health Care Surrogate [email or web address] Not available 03/24/2022 14:01:45 Reason for Referral [...] of 10,00 0 indiv idual s at [facility] risk for color ectal cance r [...] asymp tomat ic indiv idual s at [facility] risk for color ectal cance r. [...] 112:1 016-1 030. TEST DESCR IPTIO N: Humbird site algor ithmi c kylee sis of [...] years or older , who are at [facility] for color ectal cance r (CRC) . Colog uard has been appro fausto for use by the U.S. FDA. The perfo rmanc e of Colog uard was estab lishe d in a cross secti onal study of [facility] adult s aged 50-84 . Colog uard [...] study of 0 indiv idual s at [facility] risk for color ectal cance r [...] at [email or web address] torres [email or web address] om. Not Available [employer] (Cologuard Orders Only) [address], [place], [address], 09/06/2021 22:18:26 03/17/20 22 03/17/2022 URINA LYSIS , COMPL ETE W/ REFLE X TO CULTU RE urinalysis reflex COMMEN T This speci men will not refle x to a Urine Cultu re. Not Available [facility] [address] [place], [place] [address]y [address], [place], [address], 03/18/2022 06:09:13 03/17/20 22 03/18/2022 URINA LYSIS , COMPL ETE W/ REFLE X TO CULTU RE specific gravity 1.020 1.005- 1.030 normal Not Available [facility] [address] [place], [place] [address]y [address], [place], [address], 03/18/2022 06:09:13 03/17/20 22 03/18/2022 URINA LYSIS , COMPL ETE W/ REFLE X TO CULTU RE pH 5.5 5.0-7. 5 normal Not Available [facility] [address] [place], [place] [address]y [address], [place], [address], 03/18/2022 06:09:13 03/17/20 22 03/18/2022 URINA LYSIS , COMPL ETE W/ REFLE X TO CULTU RE urine-color YELLOW yellow normal Not Available [facility] [address] [place], [place] [address]y [address], [place], [address], 03/18/2022 06:09:13 03/17/20 22 03/18/2022 URINA LYSIS , COMPL ETE W/ REFLE X TO CULTU RE appearance CLEAR clear normal Not Available [facility] [address] [facility] [address], [place], [address], 03/18/2022 06:09:13 03/17/20 22 03/18/2022 URINA LYSIS , COMPL ETE W/ REFLE X TO CULTU RE WBC esterase NEGATI VE negati ve normal Not Available [facility] [address] [place], [place] [address]y [address], [place], [address], 03/18/2022 06:09:13 03/17/20 22 03/18/2022 URINA LYSIS , COMPL ETE W/ REFLE X TO CULTU RE protein TRACE negati ve/tra ce normal Not Available [facility] [address] [facility] [address], [place], [address], 03/18/2022 06:09:13 03/17/20 22 03/18/2022 URINA LYSIS , COMPL ETE W/ REFLE X TO CULTU RE glucose NEGATI VE negati ve normal Not Available [facility] [address] [facility] [address], [place], [address], 03/18/2022 06:09:13 03/17/20 22 03/18/2022 URINA LYSIS , COMPL ETE W/ REFLE X TO CULTU RE ketones NEGATI VE negati ve normal Not Available [facility] [address], [place], [address], 03/18/2022 06:09:13 03/17/20 22 03/18/2022 URINA LYSIS , COMPL ETE W/ REFLE X TO CULTU RE occult blood TRACE negati ve abnormal Not Available [facility] [address] [place], [address], 03/18/2022 06:09:13 03/17/20 22 03/18/2022 URINA LYSIS , COMPL ETE W/ REFLE X TO CULTU RE bilirubin NEGATI VE negati ve normal Not Available [facility] [address] [facility] [address] [place], [address], 03/18/2022 06:09:13 03/17/20 22 03/18/2022 URINA LYSIS , COMPL ETE W/ REFLE X TO CULTU RE urobilinogen ,semi-qn 0.2 mg/dL 0.2-1. 0 normal Not Available [facility] [address] [facility] [address], [place], [address], 03/18/2022 06:09:13 03/17/20 22 03/18/2022 URINA LYSIS , COMPL ETE W/ REFLE X TO CULTU RE nitrite, urine NEGATI VE negati ve normal Not Available [facility] [address], [place], [address], 03/18/2022 06:09:13 03/17/20 22 03/18/2022 URINA LYSIS , COMPL ETE W/ REFLE X TO CULTU RE microscopic examination SEE BELOW: normal Micro scopi c was indic ated and was perfo rmed. Not Available [facility] [address] [facility] [address], [place], [address], 03/18/2022 06:09:13 03/17/20 22 03/18/2022 URINA LYSIS , COMPL ETE W/ REFLE X TO CULTU RE WBC 0-5 /hpf 0 - 5 normal Not Available [facility] [address] [place], [address], 03/18/2022 06:09:13 03/17/20 22 03/18/2022 URINA LYSIS , COMPL ETE W/ REFLE X TO CULTU RE RBC 3-10 /hpf 0 - 2 abnormal Not Available [facility] [address] [facility] [address], [place], [address], 03/18/2022 06:09:13 03/17/20 22 03/18/2022 URINA LYSIS , COMPL ETE W/ REFLE X TO CULTU RE epithelial cells (non renal) NONE SEEN /hpf 0 - 10 normal Not Available [facility] [address] [facility] [address], [place], [address], 03/18/2022 06:09:13 03/17/20 22 03/18/2022 URINA LYSIS , COMPL ETE W/ REFLE X TO CULTU RE casts NONE SEEN /lpf none seen normal Not Available [facility] [facility] [address], [place], [address], 03/18/2022 06:09:13 03/17/20 22 03/18/2022 URINA LYSIS , COMPL ETE W/ REFLE X TO CULTU RE bacteria NONE SEEN none seen/f ew normal Not Available [facility] [address] [facility] [address], [place], [address], 03/18/2022 06:09:13 03/17/20 22 03/18/2022 CBC W/ AUTOD IFF, COMPL ETE BLOOD COUNT WBC 10.5 x10e3 /uL 3.4-10 .8 normal Not Available [facility] [address] [place], [place] [address]y [address], [place], [address], 03/18/2022 08:11:26 03/17/20 22 03/18/2022 CBC W/ AUTOD IFF, COMPL ETE BLOOD COUNT RBC 4.92 x10e6 /uL 4.14-5 .80 normal Not Available [facility] [address] [place], [place] [address]y [address], [place], [address], 03/18/2022 08:11:26 03/17/20 22 03/18/2022 CBC W/ AUTOD IFF, COMPL ETE BLOOD COUNT hemoglobin 15.2 g/dL 13.0-1 7.7 normal Not Available [facility] [facility] [address] [place], [address], 03/18/2022 08:11:26 03/17/20 22 03/18/2022 CBC W/ AUTOD IFF, COMPL ETE BLOOD COUNT hematocrit 46.2 % 37.5-5 1.0 normal Not Available [facility] [address] [place], [place] [address] [address], [place], [address], 03/18/2022 08:11:26 03/17/20 22 03/18/2022 CBC W/ AUTOD IFF, COMPL ETE BLOOD COUNT MCV 94 fL 79-97 normal Not Available [facility], [place], [address], 03/18/2022 08:11:26 03/17/20 22 03/18/2022 CBC W/ AUTOD IFF, COMPL ETE BLOOD COUNT MCH 30.9 pg 26.6-3 3.0 normal Not Available [facility] [address], [place], [address], 03/18/2022 08:11:26 03/17/20 22 03/18/2022 CBC W/ AUTOD IFF, COMPL ETE BLOOD COUNT MCHC 32.9 g/dL 31.5-3 5.7 normal Not Available [facility], [place], [address], 03/18/2022 08:11:26 03/17/20 22 03/18/2022 CBC W/ AUTOD IFF, COMPL ETE BLOOD COUNT RDW 12.0 % 11.6-1 5.4 normal Not Available [facility] [facility] [address] [place], [address], 03/18/2022 08:11:26 03/17/20 22 03/18/2022 CBC W/ AUTOD IFF, COMPL ETE BLOOD COUNT platelets 292 x10e3 /uL 150-45 0 normal Not Available [facility], [place], [address], 03/18/2022 08:11:26 03/17/20 22 03/18/2022 CBC W/ AUTOD IFF, COMPL ETE BLOOD COUNT neutrophils 74 % not estab. normal Not Available [facility], [place], [address], 03/18/2022 08:11:26 03/17/20 22 03/18/2022 CBC W/ AUTOD IFF, COMPL ETE BLOOD COUNT lymphs 18 % not estab. normal Not Available [facility] [address] [facility] [address], [place], [address], 03/18/2022 08:11:26 03/17/20 22 03/18/2022 CBC W/ AUTOD IFF, COMPL ETE BLOOD COUNT monocytes 6 % not estab. normal Not Available [facility] [address] [facility] [address], [place], [address], 03/18/2022 08:11:26 03/17/20 22 03/18/2022 CBC W/ AUTOD IFF, COMPL ETE BLOOD COUNT eos 1 % not estab. normal Not Available [facility] [address] [facility] [address], [place], [address], 03/18/2022 08:11:26 03/17/20 22 03/18/2022 CBC W/ AUTOD IFF, COMPL ETE BLOOD COUNT basos 1 % not estab. normal Not Available [facility] [address] [facility] [address], [place], [address], 03/18/2022 08:11:26 03/17/20 22 03/18/2022 CBC W/ AUTOD IFF, COMPL ETE BLOOD COUNT neutrophils (absolute) 7.7 x10e3 /uL 1.4-7. 0 high Not Available [facility] [address] [facility] [address], [place], [address], 03/18/2022 08:11:26 03/17/20 22 03/18/2022 CBC W/ AUTOD IFF, COMPL ETE BLOOD COUNT lymphs (absolute) 1.9 x10e3 /uL 0.7-3. 1 normal Not Available [facility] [address] [facility] [address], [place], [address], 03/18/2022 08:11:26 03/17/20 22 03/18/2022 CBC W/ AUTOD IFF, COMPL ETE BLOOD COUNT monocytes(ab solute) 0.7 x10e3 /uL 0.1-0. 9 normal Not Available [facility] [address] [place] [address] [address], [place], [address], 03/18/2022 08:11:26 03/17/20 22 03/18/2022 CBC W/ AUTOD IFF, COMPL ETE BLOOD COUNT eos (absolute) 0.2 x10e3 /uL 0.0-0. 4 normal Not Available [facility] [address] [place] [address] [address], [place], [address], 03/18/2022 08:11:26 03/17/20 22 03/18/2022 CBC W/ AUTOD IFF, COMPL ETE BLOOD COUNT baso (absolute) 0.1 x10e3 /uL 0.0-0. 2 normal Not Available [facility] [address] [place] [address] [address], [place], [address], 03/18/2022 08:11:26 03/17/20 22 03/18/2022 CBC W/ AUTOD IFF, COMPL ETE BLOOD COUNT immature granulocytes 0 % not estab. normal Not Available [facility] [address] [place] [address] [address], [place], [address], 03/18/2022 08:11:26 03/17/20 22 03/18/2022 CBC W/ AUTOD IFF, COMPL ETE BLOOD COUNT immature grans (abs) 0.0 x10e3 /uL 0.0-0. 1 normal Not Available [facility] [address] [place] [address] [address], [place], [address], 03/18/2022 08:11:26 03/17/20 22 03/18/2022 CK creatine kinase,total 225 U/L 41-331 normal Not Available [facility] [address] [facility] [address], [place], [address], 03/18/2022 08:11:27 03/17/20 22 03/18/2022 CMP, COMPR EHENS HERMELINDO METAB OLIC PANEL glucose 103 mg/dL 65-99 high Not Available [facility] [address] [facility] [address], [place], [address], 03/18/2022 08:11:28 03/17/20 22 03/18/2022 CMP, COMPR EHENS HERMELINDO METAB OLIC PANEL BUN 15 mg/dL 8-27 normal Not Available [facility] [address] [facility] [facility] [address], [place], [address], 03/18/2022 08:11:28 03/17/20 22 03/18/2022 CMP, COMPR EHENS HERMELINDO METAB OLIC PANEL creatinine 1.12 mg/dL 0.76-1 .27 normal Not Available [facility] [address] [facility] [address], [place], [address], 03/18/2022 08:11:28 03/17/20 22 03/18/2022 CMP, COMPR EHENS HERMELINDO METAB OLIC PANEL eGFR 69 mL/mi n/1.7 3 >59 normal Not Available [facility] [address] [facility] [address], [place], [address], 03/18/2022 08:11:28 03/17/20 22 03/18/2022 CMP, COMPR EHENS HERMELINDO METAB OLIC PANEL BUN/creatini ne ratio 13 10-24 normal Not Available [facility] [address] [facility] [address], [place], [address], 03/18/2022 08:11:28 03/17/20 22 03/18/2022 CMP, COMPR EHENS HERMELINDO METAB OLIC PANEL sodium 140 mmol/ L 134-14 4 normal Not Available [facility] [address] [facility] [address], [place], [address], 03/18/2022 08:11:28 03/17/20 22 03/18/2022 CMP, COMPR EHENS HERMELINDO METAB OLIC PANEL potassium 4.3 mmol/ L 3.5-5. 2 normal Not Available [facility] [address] [facility] [facility] [address], [place], [address], 03/18/2022 08:11:28 03/17/2003/18/2022 CMP, COMPR EHENS HERMELINDO METAB OLIC PANEL chloride 100 mmol/ L 96-106 normal Not Available [facility] [address] [facility] [facility] [address], [place], [address], 03/18/2022 08:11:28 03/17/20 22 03/18/2022 CMP, COMPR EHENS HERMELINDO METAB OLIC PANEL carbon dioxide, total 26 mmol/ L 20-29 normal Not Available [facility] [address] [facility] [facility] [address], [place], [address], 03/18/2022 08:11:28 03/17/20 22 03/18/2022 CMP, COMPR EHENS HERMELINDO METAB OLIC PANEL calcium 9.9 mg/dL 8.6-10 .2 normal Not Available [facility] [address] [facility] [facility] [address], [place], [address], 03/18/2022 08:11:28 03/17/2003/18/2022 CMP, COMPR EHENS HERMELINDO METAB OLIC PANEL protein, total 7.2 g/dL 6.0-8. 5 normal Not Available [facility] [address] [address], [place], [address], 03/18/2022 08:11:28 03/17/20 22 03/18/2022 CMP, COMPR EHENS HERMELINDO METAB OLIC PANEL albumin 5.0 g/dL 3.7-4. 7 high Not Available [facility] [address] [address], [place], [address], 03/18/2022 08:11:28 03/17/20 22 03/18/2022 CMP, COMPR EHENS HERMELINDO METAB OLIC PANEL globulin, total 2.2 g/dL 1.5-4. 5 normal Not Available [facility] [address], [place], [address], 03/18/2022 08:11:28 03/17/2003/18/2022 CMP, COMPR EHENS HERMELINDO METAB OLIC PANEL A/G ratio 2.3 1.2-2. 2 high Not Available [facility] [address], [place], [address], 03/18/2022 08:11:28 03/17/20 22 03/18/2022 CMP, COMPR EHENS HERMELINDO METAB OLIC PANEL bilirubin, total 0.6 mg/dL 0.0-1. 2 normal Not Available [facility] [address], [place], [address], 03/18/2022 08:11:28 03/17/20 22 03/18/2022 CMP, COMPR EHENS HERMELINDO METAB OLIC PANEL alkaline phosphatase 139 IU/L 44-121 high Not Available [facility] [address] [facility] [address], [place], [address], 03/18/2022 08:11:28 03/17/2003/18/2022 CMP, COMPR EHENS HERMELINDO METAB OLIC PANEL AST (SGOT) 24 IU/L 0-40 normal Not Available [facility] [address], [place], [address], 03/18/2022 08:11:28 03/17/20 22 03/18/2022 CMP, COMPR EHENS HERMELINDO METAB OLIC PANEL ALT (SGPT) 29 IU/L 0-44 normal Not Available [facility] [address] [facility] [address], [place], [address], 03/18/2022 08:11:28 03/17/20 22 03/18/2022 LIPID PANEL REF DLDL cholesterol, total 222 mg/dL 100-19 9 high Not Available [facility] [address] [facility] [facility] [address], [place], [address], 03/18/2022 08:11:29 03/17/20 22 03/18/2022 LIPID PANEL REF DLDL triglyceride s 113 mg/dL 0-149 normal Not Available [facility] [address] [facility] [address] [place], [address], 03/18/2022 08:11:29 03/17/20 22 03/18/2022 LIPID PANEL REF DLDL HDL cholesterol 44 mg/dL >39 normal Not Available [facility] [address] [facility] [address] [place], [address], 03/18/2022 08:11:29 03/17/20 22 03/18/2022 LIPID PANEL REF DLDL LDL chol calc ([facility]) 158 mg/dL 0-99 high Not Available [facility] [address] [facility] [address], [place], [address], 03/18/2022 08:11:29 03/17/20 22 03/18/2022 LIPID PANEL REF DLDL T. chol/HDL ratio 5.0 ratio 0.0-5. 0 normal T. Chol/ HDL Ratio Men Women 1/2 Avg.R isk 3.4 3.3 Avg.R isk 5.0 4.4 2X Avg.R isk 9.6 7.1 3X Avg.R isk 23.4 11.0 Not Available [facility] [address] [facility] [address] [place], [address], 03/18/2022 08:11:29 03/17/20 22 03/18/2022 LIPID PANEL REF DLDL LDL/HDL ratio 3.6 ratio 0.0-3. 6 normal LDL/H DL Ratio Men Women 1/2 Avg.R isk 1.0 1.5 Avg.R isk 3.6 3.2 2X Avg.R isk 6.2 5.0 3X Avg.R isk 8.0 6.1 Not Available [facility] [address] [facility] [address] [place], [address], 03/18/2022 08:11:29 03/17/20 22 03/18/2022 LIPID PANEL REF DLDL LDL chol. (direct) 152 mg/dL 0-99 high Not Available [facility] [address] [facility] [address] [place], [address], 03/18/2022 08:11:29 03/17/20 22 03/18/2022 PSA DIAGN [...] t be inter prete d as absol [place] evide nce of the prese nce or absen ce of nidia oscar disea se. Not Available [facility] [address] [facility] [address] [place], [address], 03/18/2022 08:11:30 03/17/20 22 03/18/2022 VITAM IN [...] um and D. Basilia jacobs [place]: [facility] . 2. Graham pineda MF, Raffaele rasmussen [place], Nicky off-F sumit i FLORES, et al. Evalu ation , treat ment, and preve ntion of vitam in D defic iency : an Endoc rine Socie ty clini concha pract ice guide line. JCEM. 2010; 96(7) :1911 -30. Not Available [facility] [address] [place], [address], 03/18/2022 08:11:31 03/17/20 22 03/17/2022 VENIP UNCTU RE results Compl ete Not Available [facility] [address], [place], [address], 03/17/2022 09:15:24 03/19/20 22 03/20/2022 PSA (FREE [...] t be inter prete d as absol [place] evide nce of the prese nce or absen ce of cesario shelby se. Not Available [facility] [address], [place], [address], 03/20/2022 08:11:48 03/19/20 22 03/20/2022 PSA (FREE AND TOTAL ) PSA, free 0.76 NG/mL n/a normal Willam ECLIA metho dolog y. Not Available [facility] [address], [place], [address], 03/20/2022 08:11:48 03/19/20 22 03/20/2022 PSA (FREE [...] other popul ation of men. Not Available [facility] [address], [place], [address], 03/20/2022 08:11:48 03/19/20 22 03/20/2022 TESTO STERO NE testosterone 238 NG/dL 264-91 6 low Adult male refer ence inter keaton is based on a popul ation of healt hy nonob aron males (BMI <30) betwe en 19 and 39 years old. Velia sanderson et.al . JCEM 2017, 102;1 161-1 173. PMID: 93329 103. Not Available [facility] [address], [place], [address], 03/20/2022 08:11:49 03/19/20 22 03/19/2022 VENIP UNCTU RE results Compl ete Not Available [facility] [address], [place], [address], 03/19/2022 09:55:12 Result Notes None recorded. 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 Not Available [facility] 2 22:12:54 Persistent insomnia 468020987 Active Not Available [facility] 2 22:12:55 Asthma 923486821 Active Not Available [facility] 2 22:12:54 Generalized anxiety disorder 40563167 Active 2017 Not Available [facility] 2 22:12:54 Gastroesophag eal reflux disease 839564909 Active Not Available [facility] 2 22:12:55 Basal cell carcinoma of skin 112604037 Active 2019 Not Available [facility] 2 22:12:55 Pure hypercholeste rolemia 733687820 Active Not Available [facility] 2 22:12:54 Vitamin D deficiency 17648356 Active 2016 Not Available [facility] 22:12:54 Memory impairment 273448461 Active 2016 Not Available [facility] 2 22:12:55 Osteoarthriti s 918301364 Active 2016 Not Available [facility] 2 22:12:54 Obesity 561147442 Active 2017 Not Available [facility] 2 22:12:54 Allergic conjunctiviti s 789920178 Active Not Available [facility] 2 22:12:54 Pain of hip region 65817828 Active Not Available [facility] 2 22:12:55 Allergic rhinitis 34539679 Active Not Available [facility] 2 22:12:55 Sleep apnea 89316448 Active 2016 Not Available [facility] 2 22:12:55 Problem Notes None recorded. Procedures Surgical History Date Name Laterality Status Provider Name and Address Organization Details Recorded Time 03/24/20 22 Quality Functional Assessment [place] [facility] [place] [facility] 03/24/2022 11:18:07 03/24/20 22 Quality Medication Reviewed and Updated completed [facility] [place] 03/24/2022 11:18:07 03/24/20 22 Quality BMI with follow up completed [facility] [place] 03/24/2022 11:18:07 03/24/20 22 Quality Advanced Care Planning completed [facility] [place] 03/24/2022 11:18:07 03/24/20 22 Quality Incontinence Screening completed [facility] [place] 03/24/2022 11:18:07 03/24/20 22 Medicare AWV-Screening Schedule completed [facility] [place] 03/24/2022 11:18:07 03/24/20 22 Counseling: Advanced care planning completed MAURO Byrd [facility], [facility] 03/24/2022 13:55:20 03/24/20 22 Quality Fall Risk Assessment [facility] 03/24/2022 11:18:07 08/06/19 22 Nail Debridement completed Maeve Giles [facility], [facility] 08/06/2021 16:05:06 03/15/20 18 Feces-based colorectal cancer DNA screening completed Tracy Reagan [facility], [facility] 08/06/2021 09:59:56 07/18/19 colonoscopy completed Tracy Reagan [facility] 08/06/2021 09:58:40 repair [facility] umbilical hernia [facility] 09:58:31 Imaging Results None recorded. Procedure Notes None recorded. Medical Equipment None Reported. Allergies Allergen ID Allergen Name Allergen Category Reaction Reaction Severity Criticality Documentation Date Start Date Code Code System Note Provider Name and Address Organization Details Recorded Time 048023 Product containin g 3-hydroxy -3-methyl glutaryl- coenzyme A reductase inhibitor (product) medicatio n other moderate Not available 07/18/20212014 92185 009 SNOMED Palpi tatio ns Tracy Reagan Cecilio [facility], [facility] 12:32:35 Medications Name Sig Start Date [...] Available Not Available Not Available Fluzone High-Dose 8012-2245 (PF) 180 mcg/0.5 mL intramusc ular syringe ADM 0.5ML IM UTD active Not Available Not Available No t Available Fluzone High-Dose 6235-7928 (PF) 180 mcg/0.5 mL intramusc ular syringe [...] Available Not Available Not Available Fluad Quad 7687-6292 (65yr up)(PF) 60 mcg (15 mcg x [...] cm 87 /min 18 /min 97.9 [degF] 07002.4 7 g 184 mm[Hg] 96 mm[Hg] Not Available [facility] 2 22:11:14 Date Recorded Body height Heart rate Respiratory rate Body temperature Body mass index (BMI) Body weight Systolic blood pressure Diastolic blood pressure Systolic blood pressure Diastolic blood pressure Systolic blood pressure Diastolic blood pressure Provider Name and Address Organization Details Last Updated DateTime 2 163.83 cm 84 /min 18 /min 98.1 [degF] 34.5 kg/m2 71098.5 9 g 183 mm[Hg] 96 mm[Hg] 177 mm[Hg] 96 mm[Hg] 135 mm[Hg] 84 mm[Hg] MAURO Byrd [place] [facility], [facility] 2 13:48:29 Date Recorded Body height Heart rate Oxygen saturation Oxygen saturation in Arterial blood by Pulse oximetry Respiratory rate Body temperature Body mass index (BMI) Body weight Systolic blood pressure Diastolic blood pressure Systolic blood pressure Diastolic blood pressure Provider Name and Address Organization Details Last Updated DateTime 2 163.83 cm 93 /min 96 % 96 % 18 /min 98.2 [degF] 34.5 kg/m2 74666.5 9 g 172 mm[Hg] 99 mm[Hg] 176 mm[Hg] 81 mm[Hg] Jamaica Funk CMA [facility], [facility] 2 14:05:01 Date Recorded Body height Heart rate Respiratory rate Body temperature Body mass index (BMI) Body weight Systolic blood pressure Diastolic blood pressure Systolic blood pressure Diastolic blood pressure Provider Name and Address Organization Details Last Updated DateTime 2 163.83 cm 89 /min 18 /min 98.1 [degF] 35 kg/m2 77280.0 2 g 181 mm[Hg] 97 mm[Hg] 171 mm[Hg] 98 mm[Hg] MAURO Byrd [facility], [facility] 2 13:32:03 Date Recorded Body height Heart rate Respiratory rate Body temperature Body mass index (BMI) Body weight Systolic blood pressure Diastolic blood pressure Systolic blood pressure Diastolic blood pressure Provider Name and Address Organization Details Last Updated DateTime 2 163.83 cm 80 /min 18 /min 98.5 [degF] 34 kg/m2 66507.4 7 g 183 mm[Hg] 93 mm[Hg] 139 mm[Hg] 85 mm[Hg] Coni Mock [email or web address] 2 13:10:43 Social History Question Answer Notes LastModified by Organizat ion Details LastModified Time Tobacco Smoking Status Former Smoker [email or web address] 08/06/2021 09:58:08 Do You Have An Advance Directive? No Information not available 08/06/2021 When Did You Quit Smoking? 16+yearssinc elastcigaret te [email or web address] Information not available 08/06/2021 Do You Have A Medical Power Of Machine Sand Mixer? No Information not available 08/06/2021 What Was The Date Of Your Most Recent Tobacco Screening? 08/06/2021 [email or web address] Information not available 08/06/2021 What Is Your Current Pack Years? 10packyears [email or web address] Information not available 08/06/2021 What Is Your Relationship Status? [email or web address] Information not available 08/06/2021 Has Tobacco Cessation Counseling Been Provided? No [email or web address] Information not available 08/06/2021 Sex: Unknown Functional Status Question Answer Note LastModified by Organizat ion Details LastModified Time Do you use any illicit or recreational drugs? No Information not available 08/06/2021 Do you or have you ever used any other forms of tobacco or nicotine? No [email or web address] Information not available 08/06/2021 What is your level of alcohol consumption? Occasional Information not available 08/06/2021 Are you currently employed? 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 Family History Relationship Description Onset Age of this Age Resolved Age Notes LastModified by Organization Details LastModified Time Father Cerebrovascu lar accident Not available 09:56:49 Mother Natural [email or web address] Not available 2021 09:57:03 Notes:1 brother, no problems . 2 children alive and well Medical History Condition Response Other Y Sleep disorder/Insomnia Y High Cholesterol Y Asthma Y Hepatitis Y GERD/Ulcer Y Allergies (other than meds) Y Immunizations Vaccine Type Date Status Note Provider Nam e and Address Organization Details Recorded Time Influenza, high-dose, quadrivalent, PF 2 completed Jacki Mayen MD [address] [address], [place], [address], [facility], [facility] 03/24/2022 16:33:59 Influenza, high-dose, trivalent, PF 5 completed Coni napoles [facility], [facility] 03/24/2022 11:18:31 Pneumococcal conjugate PCV 13 5 completed Coni napoles [facility], [facility] 03/24/2022 11:18:31 Influenza, split virus, trivalent, preservative 4 completed Coni Dulski null, [facility], [facility] 03/24/2022 11:18:31 Influenza, split virus, quadrivalent, preservative 3 completed Coni Stuski null, [facility], [facility] 03/24/2022 13:11:35 Influenza, split virus, trivalent, preservative 2 completed Coni Dulski null, [facility], [facility] 03/24/2022 11:18:31 Influenza, split virus, trivalent, preservative 4 completed Coni Dulski null, [facility], [facility] 03/24/2022 11:18:31 Influenza, split virus, trivalent, preservative 3 completed Coni Dulski null, [facility], [facility] 03/24/2022 11:18:31 zoster live 0 completed Coni Dulski null, [facility], [facility] 03/24/2022 11:18:31 tetanus toxoid, unspecified formulation 0 completed Coni Dulski null, [facility], [facility] 03/24/2022 11:18:31 pneumococcal, unspecified formulation 0 completed Coni Dulski null, [facility], [facility] 03/24/2022 11:18:31 Influenza, adjuvanted, trivalent, PF 8 completed Coni Dulski null, [facility], [facility] 03/24/2022 11:18:31 Influenza, split virus, quadrivalent, PF 0 completed Coni Dulski null, [facility], [facility] 03/24/2022 11:18:31 tetanus toxoid, unspecified formulation 0 completed Coni Dulski null, [facility], [facility] 03/24/2022 11:18:31 Influenza, high-dose, trivalent, PF 6 completed Coni Dulski null, [facility], [facility] 03/24/2022 11:18:31 Influenza, high-dose, quadrivalent, PF 1 completed Coni Dulski null, [facility], [facility] 03/24/2022 11:18:31 Influenza, split virus, trivalent, preservative 3 completed Coni Dulski null, [facility], [facility] 03/24/2022 11:18:31 COVID-19, mRNA, LNP-S, PF, 100 mcg/0.5mL dose or 50 mcg/0.25mL dose 1 completed Coni Dulski null, [facility], [facility] 03/24/2022 11:18:31 Influenza, split virus, trivalent, PF 0 [facility] 03/24/2022 11:18:31 pneumococcal, unspecified formulation 0 completed Coni Dulski null, [facility], [facility] 03/24/2022 11:18:31 Influenza, high-dose, trivalent, PF 7 completed Coni Dulski null, [facility], [facility] 03/24/2022 11:18:31 Influenza, split virus, quadrivalent, PF 0 completed Coni Dulski null, [facility], [facility] 03/24/2022 11:18:31 COVID-19, mRNA, LNP-S, PF, 100 mcg/0.5mL dose or 50 mcg/0.25mL dose 1 completed Coni Dulski null, [facility], [facility] 03/24/2022 11:18:31 COVID-19, mRNA, LNP-S, PF, 100 mcg/0.5mL dose or 50 mcg/0.25mL dose 1 completed Coni Dulski null, [facility], [facility] 03/24/2022 11:18:31 Influenza, adjuvanted, trivalent, PF 9 completed Coni napoles, [place] [facility], [facility] 03/24/2022 11:18:31 COVID-19, mRNA, LNP-S, PF, 100 mcg/0.5mL dose or 50 mcg/0.25mL dose 2 completed Coni napoles [place] [facility], [facility] 03/24/2022 11:18:31 Past Encounters Encounter ID Performer Location Encounter Start Date Encounter Closed Date Diagnosis/Indication Diagnosis SNOMED-CT Code Diagnosis ICD10 Code Diagnosis Note [id number] MD YANELIS Hill [place] [address] [place] [address] [place] [address] 01/29/2013 00:00:00 02/16/2013 23:08:01 [id number] MD YANELIS Hill [place] [address] [place] [address] [place] [address] 04/23/2013 00:00:00 04/23/2013 20:09:08 [id number] MD YANELIS Hill [place] [address] [place] [address] [place] [address] 06/04/2013 00:00:00 06/04/2013 19:55:35 [id number] MD YANELIS Hill [place] [address] [place] [address] [place] [address] 06/18/2013 00:00:00 06/19/2013 22:49:49 [id number] MD YANELIS Hill [place] [address] [place] [address] [place] [address] 11/19/2013 00:00:00 11/19/2013 21:27:16 [id number] MD YANELIS Hill [place] [address] [place] [address] [place] [address] 12/25/2013 00:00:00 12/26/2013 21:41:49 [id number] MD AYNELIS Hill [place] [address] [place] [address] [place] [address] 04/04/2014 00:00:00 04/04/2014 19:06:34 [id number] Jacki Mayen MD [facility] [place] [address] [place] [address] [place] [address] 01/07/2015 00:00:00 01/07/2015 18:27:58 [id number] Jacki Mayen MD [facility] [place] [address] [place] [address] [place] [address] 01/28/2015 00:00:00 01/28/2015 21:01:46 [id number] Jacki Mayen MD [facility] [place] [address] [place] [address] [place] [address] 04/01/2015 00:00:00 04/01/2015 18:52:17 [id number] Jacki Mayen MD [facility] [place] [address] [place] [address] [place] [address] 07/07/2015 00:00:00 07/07/2015 21:44:17 [id number] MD YANELIS Hill [place] [address] [place] [address] [place] [address] 08/07/2015 00:00:00 08/07/2015 21:17:51 [id number] MD YANELIS Hill [place] [address] [place] [address] [place] [address] 09/18/2015 00:00:00 09/18/2015 20:13:45 [id number] Jacki Mayen MD [facility] [place] [address] [place] [address] [place] [address] 10/08/2015 00:00:00 10/08/2015 19:09:09 [id number] MD YANELIS Hill [place] [address] [place] [address] [place] [address] 11/20/2015 00:00:00 11/20/2015 21:46:21 [id number] Jacki Mayen MD [facility] [place] [address] [place] [address] [place] [address] 12/08/2015 00:00:00 12/08/2015 18:20:53 [id number] Jacki Mayen MD [facility] [place] [address] [place] [address] [place] [address] 01/12/2016 00:00:00 01/12/2016 22:02:19 [id number] Jacki Mayen MD [facility] [place] [address] [place] [address] [place] [address] 02/11/2016 00:00:00 02/11/2016 20:10:25 [id number] MD YANELIS Hill [place] [address] [place] [address] [place] [address] 03/04/2016 00:00:00 03/04/2016 23:18:13 [id number] MD YANELIS Hill [place] [address] [place] [address] [place] [address] 03/11/2016 00:00:00 03/11/2016 17:49:47 [id number] MD YANELIS Hill [place] [address] [place] [address] [place] [address] 04/14/2016 00:00:00 04/14/2016 21:54:59 [id number] _ATHN_MIGR ATION_1 _ATHENA_M IGRATION_ DEFAULT_2 2_1 , 05/24/2016 00:00:00 05/25/2016 08:45:46 [id number] MD YANELIS Hill [place] [address] [place] [address] [place] [address] 06/29/2016 00:00:00 06/29/2016 19:47:09 [id number] MD YANELIS Hill [place] [address] [place] [address] [place] [address] 07/20/2016 00:00:00 07/20/2016 21:34:43 [id number] MD YANELIS Hill [place] [address] [place] [address] [place] [address] 07/22/2016 00:00:00 07/22/2016 20:16:36 [id number] Jacki Mayen MD [facility] [place] [address] [place] [address] [place] [address] 02/09/2017 00:00:00 02/09/2017 18:37:59 [id number] Jacki Mayen MD [facility] [place] [address] [place] [address] [place] [address] 06/03/2017 00:00:00 06/03/2017 16:36:35 [id number] Jacki Mayen MD [facility] [place] [address] [place] [address] [place] [address] 07/06/2017 00:00:00 07/06/2017 17:48:10 [id number] MD YANELIS Hill [place] [address] [place] [address] [place] [address] 10/12/2017 00:00:00 10/13/2017 08:49:40 [id number] MD YANELIS Hill [place] [address] [place] [address] [place] [address] 12/21/2017 00:00:00 12/21/2017 20:00:20 [id number] Jacki Mayen MD [facility] [place] [address] [place] [address] [place] [address] 03/07/2018 00:00:00 03/07/2018 16:46:30 [id number] Jacki Mayen MD [facility] [place] [address] [place] [address] [place] [address] 05/16/2018 00:00:00 05/16/2018 14:02:35 [id number] MD YANELIS Hill [place] [address] [place] [address] [place] [address] 06/16/2018 00:00:00 06/16/2018 12:12:36 [id number] Jacki Faheem, MD [facility] [place] [address] [place] [address] [place] [address] 08/14/2018 00:00:00 08/14/2018 18:44:08 [id number] Jacki Mayen MD [facility] [place] [address] [place] [address] [place] [address] 09/04/2018 00:00:00 09/04/2018 16:20:16 [id number] Jacki Mayen MD [facility] [place] [address] [place] [address] [place] [address] 10/13/2018 00:00:00 10/13/2018 19:44:33 [id number] MD YANELIS Hill [place] [address] [place] [address] [place] [address] 11/30/2018 00:00:00 11/30/2018 19:06:17 [id number] MD YANELIS Hill [place] [address] [place] [address] [place] [address] 12/28/2018 00:00:00 12/28/2018 20:37:18 [id number] MD YANELIS Hill [place] [address] [place] [address] [place] [address] 03/02/2019 00:00:00 03/02/2019 17:55:28 [id number] MD YANELIS Hill [place] [address] [place] [address] [place] [address] 03/12/2019 00:00:00 03/12/2019 19:57:02 [id number] MD YANELIS Hill [place] [address] [place] [address] [place] [address] 04/16/2019 00:00:00 04/16/2019 12:42:36 [id number] MD YANELIS Malone [place] [address] [place] [address] [address] [place] [address] 04/26/2019 00:00:00 04/26/2019 12:57:24 [id number] MD YANELIS Hill [place] [address] [place] [address] [place] [address] 06/04/2019 00:00:00 06/04/2019 19:50:38 [id number] Jacki Mayen MD [facility] [place] [address] [place] [address] [place] [address] 06/11/2019 00:00:00 06/11/2019 18:09:56 [id number] Jacki Mayen MD [facility] [place] [address] [place] [address] [place] [address] 06/21/2019 00:00:00 06/21/2019 21:27:46 [id number] MD YANELIS Hill [place] [address] [place] [address] [place] [address] 06/29/2019 00:00:00 06/29/2019 20:38:40 [id number] MD YANELIS Hill [place] [address] [place] [address] [place] [address] 07/26/2019 00:00:00 07/26/2019 21:47:48 [id number] _ATHN_MIGR ATION_1 _ATHENA_M IGRATION_ DEFAULT_2 2_1 , 09/04/2019 00:00:00 09/04/2019 13:55:20 [id number] MD YANELIS Hill [place] [address] [place] [address] [place] [address] 09/11/2019 00:00:00 09/11/2019 20:24:02 [id number] MD YANELIS Hill [place] [address] [place] [address] [place] [address] 11/08/2019 00:00:00 11/08/2019 10:03:23 [id number] MD YANELIS Hill [place] [address] [place] [address] [place] [address] 12/11/2019 00:00:00 12/11/2019 18:39:53 [id number] _ATHN_MIGR ATION_1 _ATHENA_M IGRATION_ DEFAULT_2 2_1 , 12/14/2019 00:00:00 12/14/2019 14:36:01 [id number] MD YANELIS Hill [place] [address] [place] [address] [place] [address] 01/15/2020 00:00:00 01/15/2020 13:12:43 [id number] Jacki Mayen MD [facility] [place] [address] [place] [address] [place] [address] 03/10/2020 00:00:00 03/10/2020 13:10:45 [id number] Jacki Mayen MD [facility] [place] [address] [place] [address] [place] [address] 03/17/2020 00:00:00 03/17/2020 18:38:52 [id number] MD YANELIS Hill [place] [address] [place] [address] [place] [address] 03/27/2020 00:00:00 03/27/2020 16:19:08 [id number] MD YANELIS Hill [place] [address] [place] [address] [place] [address] 04/17/2020 00:00:00 04/17/2020 20:35:51 [id number] MD YANELIS Hill [place] [address] [place] [address] [place] [address] 07/14/2020 00:00:00 07/14/2020 18:25:39 [id number] MD YANELIS Hill [place] [address] [place] [address] [place] [address] 08/04/2020 00:00:00 08/04/2020 20:45:13 [id number] MD YANELIS Hill [place] [address] [place] [address] [place] [address] 08/11/2020 00:00:00 08/11/2020 19:45:31 [id number] MD YANELIS Hill [place] [address] [place] [address] [place] [address] 08/20/2020 00:00:00 08/20/2020 15:42:53 [id number] Jacki Mayen MD [facility] [place] [address] [place] [address] [place] [address] 08/25/2020 00:00:00 08/25/2020 16:15:19 [id number] Jacki Mayen MD [facility] [place] [address] [place] [address] [place] [address] 09/23/2020 00:00:00 09/23/2020 20:04:26 [id number] MD YANELIS Hill [place] [address] [place] [address] [place] [address] 12/24/2020 00:00:00 12/24/2020 18:44:29 [id number] Jacki Mayen MD [facility] [place] [address] [place] [address] [place] [address] 03/18/2021 00:00:00 03/18/2021 14:22:16 [id number] MD YANELIS Hill [place] [address] [place] [address] [place] [address] 04/10/2021 00:00:00 04/10/2021 21:06:05 [id number] Jacki Mayen MD [facility] [place] [address] [place] [address] [place] [address] 08/06/2021 09:15:42 08/06/2021 16:05:26 Screening for malignant neoplasm of colon 420298897 Z12.12 Z12.11 patient unable or unwilling to have colonoscop y; alternativ e screening ordered Onychomycosis 431252231 B35.1 [id number] MD YANELIS Hill [place] [address] [place] [address] [place] [address] 08/20/2021 13:35:59 08/20/2021 15:31:32 Basal cell carcinoma of skin 128630675 C44.91 [id number] MD YANELIS Hill [place] [address] [place] [address] [place] [address] 09/17/2021 13:14:55 09/17/2021 14:32:38 Gastroesophageal reflux disease 896183259 K21.9 He has gastroesop hageal reflux disease, he does not know what medicine he is taking but he is on Prilosec twice daily of tried him tell him to go to once every other day we have had discussion multiple times before he is no longer taking his sulcal fate his condition is stable and not progressin g Asthma [id number] J45.90 9 Has had a lifetime of asthma reactive airways disease and is now using the albuterol 2 puffs every 6 hours only as needed and is no longer using his preventati ve medicine such as Advair Memory impairment 891836 006 R41.3 His memory impairment is getting worse out of extended private discussion with his today outside of this patient's presence she informs me that he is confused often and becoming very possessive of her and sad to watch his decline making her depressed Onychomycosis 959044843 B35.1 He still has a little toenail fungus of all of his problems is really the least of his issues with only a minor issue on his left great toe he is completed a course of Lamisil. Basal cell carcinoma of skin 758298212 C44.91 I recommende d to get the small basal cell the right side of his face surgically removed we have made arrangemen ts for a plastic surgeon to see him [id number] MD YANELIS Hill [place] [address] [place] [address] [place] [address] 03/24/2022 12:46:01 03/24/2022 15:39:53 Adult health examination [id number] Z00.00 Annual Wellness Visit done today Advance care planning 71 4811924 Z71.89 Active or passive immunization 529251262 Z23 Prostate s pecific antigen above reference range 119009920 R97.20 Dementia 83573384 F03.90 Blood in urine 38818262 R31.9 Memory impairment 444628 006 R41.3 His memory impairment is getting worse out of extended private discussion with his today outside of this patient's presence she informs me that he is confused often and becoming very possessive of her and sad to watch his decline making her depressed Asthma 856951145 J45.90 9 Has had a lifetime of asthma reactive airways disease and is now using the albuterol 2 puffs every 6 hours only as needed and is no longer using his preventati ve medicine such as Advair Gastroesop hageal reflux disease 925745822 K21.9 He has gastroesop hageal reflux disease, [...] Glass Member ID Guarantor Name 07/01/2022 1 [employer] (MEDICARE REPLACEMENT HMO) Oswaldo Young [id number] Oswaldo Young Notes Date Note Type Note Provider Name and Address Organization Details Recorded Time 08/06/2021 text/html CORONAVIRUS SCREENING [id number] white male comes in today with a [...] vaccine product did you receive?Moderna Imported from [facility] on 08/06/2021 QUALITY MEASURE QUESTIONNAIRE ?Are you a diabetic patient ?No ?Has the Patient previously received any type of colorectal cancer screener ?No Imported from [employer] on 08/06/2021 Jacki Mayen MD [address], [place], [address], [facility], [facility] 08/06/2021 20:22:20 08/20/2021 text/html CORONAVIRUS SCREENING [...] tested positive for COVID-19 ?No Imported from [facility] on 08/20/2021 Jacki Mayen MD [address], [place], [address], [facility], [facility] 08/20/2021 19:04:39 09/17/2021 text/html CORONAVIRUS SCREENING [...] tested positive for COVID-19 ?No Imported from [facility] on 09/17/2021 Jacki Mayen MD [address], [place], [address], [facility], [facility] 09/17/2021 19:15:56 03/24/2022 text/html Medicare Annual [...] month and they like to go to apprupt. He tells me that his dementia is not good but not bad and not changing. He had annual labs done on 03/17/22 and the results were reviewed today. He has no new complaints today. Jacki Mayen MD [address] [facility] [facility] [address], [place], [address], [facility], [facility] 03/24/2022 16:34:05
[2024-12-03 08:29] VITALS: BP 120/70; PULSE 76; O2SAT 96; BMI 33.7
--- NOTE | 2024-12-03 08:29 | MHC.OFFVIS ---
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: No Accompanied by: Self / Same As Patient Allergies No Known Allergies Allergy (Verified 12/03/24 08:33) Medication List - Last Reconciled 12/03/24 by ARASELI Aguilar albuterol sulfate 90 mcg/actuation 2 puffs inhalation Q6-8H PRN albuterol sulfate 90 mcg/actuation 2 inhalations inhalation Q6H PRN 30 days cholecalciferol (vitamin D3) 50 mcg PO DAILY famotidine 20 mg PO BEDTIME finasteride 5 mg PO DAILY 90 days fluticasone propion-salmeterol 250-50 mcg/dose (Wixela Inhub) 1 ea inhalation BID PRN losartan-hydrochlorothiazide 50-12.5 mg 1 tab PO DAILY omeprazole 40 mg PO DAILY rosuvastatin 10 mg PO DAILY HPI Comments Details: 78-yr-old male presents for f/u visit for cognitive difficulties. Pt is accompanied by his , Luz, and claudiorLynette Pt is scheduled to undergo a f/u right eye posterior vitreous detachment repair through [facility] Pt was previously unable to complete the in-lab sleep study. Thus, patient underwent 03/14/2024, HST, which demonstrated mild obstructive sleep apnea with nocturnal hypoxemia, with during the 540 minutes of monitoring time, AHI 13 per hour, an O2 pamela 67%, with SpO2 under 90% for 23 minutes of study time, and under 88% for 60 minutes of study time, and average SpO2 94%. Snoring was present for 26% of study time. Patient was given a CPAP machine, however he deny use it. Daughter previously offered patient a wedge pillow, however patient did not use it. He continues to be sleepy during the day and doses off unintentionally. Patient reports his memory is about the same. Daughter states that his long-term memory is great, however his short-term memory is poor. Daughter feels that he needs constant supervision, and should not be left home alone. Daughter states that once when her mother went grocery shopping, and patient was home by himself, patient was repetitively calling his daughter because he had forgotten where his went. states that she tries to bring him to the grocery store, but he sometimes will not come into the store, would rather sit outside on a bench. He is not very physically active. There is a long hallway in their building, which he and his could walk up and down, however he is not likely to do this and he says it it is ?a hike ?. The patient and state that he generally does not need to use his as needed inhaler. He has follow-up with pulmonology in 2 weeks. He does play Miquel with his family, in usually does quite well. He does socialize on a regular basis. Patient previously tried memantine IR, but it was felt it caused dizziness, however daughter is not sure if it was the memantine or his other medications or his other health issues. They are open to trying this. He states he used to work for the old [employer]- he worked there for 30 yrs, he notes there was increased chemical exposures during his last yr of work. 06/23/2023, MR/MR head/brain wo con IMPRESSION: 1. 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 2. 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 [facility] Medical History VIANEY on CPAP Macular hole Pulmonary nodules Atelectasis Mild cognitive impairment Nodule of parotid gland Alzheimer disease Short-term memory loss Testicular hypofunction Lipoma Vitamin D deficiency Insomnia Osteoarthritis Impotence Asthma GERD (gastroesophageal reflux disease) Sleep apnea Surgical History H/O wrist surgery H/O colonoscopy History of esophagogastroduodenoscopy (EGD) Family History Father Stroke Social History Housing: Apartment Patient Tobacco Use Status: Never used Tobacco e-Cigarette/Vaping Use: Never Used Second Hand Smoke Exposure: No service: Yes Current occupational status: retired Cognitive needs: No Hearing needs: No Vision needs: No Physical Exam Vital Signs: Last Vital Signs Pulse 76 12/03/24 08:29 BP 120/70 12/03/24 08:29 Pulse Ox 96 12/03/24 08:29 Oxygen Delivery Method Room Air 12/03/24 08:29 BMI result Body Mass Index 33.7 Const General: cooperative and no acute distress Orientation/consciousness: patient oriented x3 Resp Effort & Inspection: normal respiratory effort and able to speak in complete sentences Neuro General: patient oriented x3 Cranial nerves: Yes CN's II-XII intact bilaterally Cognition (Neuro): normal cognition Psych Appearance: grossly normal Mental Status: mental status grossly normal Speech and movement: Normal speech and movement present Affect: normal affect Attitude: cooperative Assessment & Plan Assessment & Plan (1) Sleep apnea: Code(s): G47.30 - Sleep apnea, unspecified Category: Medical (2) Excessive daytime sleepiness: Code(s): G47.19 - Other hypersomnia Category: Medical (3) Snoring: Code(s): R06.83 - Snoring Category: Medical (4) Mild cognitive impairment: Code(s): G31.84 - Mild cognitive impairment of uncertain or unknown etiology Category: Medical (5) Nocturnal hypoxemia: Code(s): G47.34 - Idiopathic sleep related nonobstructive alveolar hypoventilation Category: Medical Plan Reviewed HST results showing mild VIANEY with nocturnal hypoxemia. Patient declined to use CPAP. Thus, patient advised to follow-up with pulmonology to discuss strategies to optimize nocturnal hypoxemia, as well as discuss likely dyspnea on exertion- to improve his exercise tolerance. Patient also encouraged to trial using a sleep apnea wedge pillow. Encouraged patient and to schedule regular physical activity, such as a short walk after breakfast every day. Retrial memantine in extended release formulation, in hopes this is better tolerated. As memantine may help his cognition as well as his motivation. Start memantine ER 7 mg daily x1 month and if well tolerated, increase the daily dose by 7mg every 30 days to max of 28mg. Hold neuro-psych eval for now- pt is not interested at this time. Continue to engage in regular social and cognitively stimulating activities. f/u in 6 months or sooner prn Medications: New memantine then stop and increase to 14mg daily 7 mg PO DAILY 30 days 30 ea 0RF Coding Level of Care Code Est Pt Level 4 (93732) Diagnoses Sleep apnea G47.30 Excessive daytime sleepiness G47.19 Snoring R06.83 Mild cognitive impairment G31.84 Nocturnal hypoxemia G47.34
== END 2024-12-03 09:14 | disposition home or self-care (01) ==
LOC: HO.HSMS 07:48
PROVIDERS: PCP Nurse Practitioner Family; Visit Provider Nurse Practitioner Family
DX: G47.30 Sleep apnea, unspecified (principal); G47.19 Other hypersomnia; R06.83 Snoring; G31.84 Mild cognitive impairment of uncertain or unknown etiology; G47.34 Idiopathic sleep related nonobstructive alveolar hypoventilation
CPT/HCPCS: 99214

== ENCOUNTER → 2024-12-03 07:47 | Outpatient (BNVA) | payer MEDICARE, SELFPAY | PROVIDERS: PCP Nurse Practitioner Family; Visit Provider Nurse Practitioner Family | DX: G47.30 Sleep apnea, unspecified (principal); G47.19 Other hypersomnia; G47.34 Idiopathic sleep related nonobstructive alveolar hypoventilation; G31.84 Mild cognitive impairment of uncertain or unknown etiology; R06.83 Snoring | CPT/HCPCS: 99212 ==

== ENCOUNTER 2024-12-05 08:27 | Outpatient (AMB) | payer MEDICARE, SELFPAY ==
--- NOTE | 2024-12-05 08:05 | A.OFFPC_ITS ---
Intake Visit Reasons: pre op [id number] Allergies No Known Allergies Allergy (Verified 12/03/24 08:33) Tobacco use date assessed: 11/01/24 Dental Screening Dental Screen Date: 11/01/24 HPI pre op [id number] HPI Details Chief Complaint The patient is scheduled for cataract surgery and seeks preoperative clearance. History of Present Illness The patient is a 79-year-old male presenting for preoperative evaluation related to upcoming cataract surgery. The patient reports no recent issues such as chest pain, shortness of breath, fever, or chills. An EKG was recently conducted, showing no acute changes, and there are no signs of infection. The history reveals readiness for the planned cataract surgery with no acute symptoms indicating otherwise. PT IS CLEAR FOR SURGERY FROM MY STANDPOINT. Social History Health Maintenance Review of Systems - Cardiovascular: Denies chest pain. - Respiratory: Denies shortness of breat h. - Constitutional: Denies fever or chills . - Infectious: Denies signs of infection. Physical Exam General: Cooperative, healthy appearing, comfortable, no acute distress and well developed Orientation: Patient oriented x3 Results - Tests: Recent EKG showed no acute vences ges. Plan The patient is cleared for cataract surgery following a preoperative evaluation, showing stable health status and an EKG with no acute changes. The absence of symptomatic contraindications supports proceeding with the scheduled procedure. Discussion Notes I discussed with the patient the results of the preoperative assessment and confirmed the clearance for the cataract surgery. We reviewed the EKG findings, which showed no acute anomalies, and addressed any preoperative concerns. The patient indicated readiness for the procedure, understanding the importance of monitoring for any new symptoms that may arise. Patient Instructions - You are cleared for cataract surgery. - Monitor for any new symptoms, and cont act me if you experience chest pain, shortness of breath, fever, or chills. - Reach out with any questions or concer ns before the surgery. [facility] Medical History VIANEY on CPAP Macular hole Pulmonary nodules Atelectasis Mild cognitive impairment Nodule of parotid gland Alzheimer disease Short-term memory loss Testicular hypofunction Lipoma Vitamin D deficiency Insomnia Osteoarthritis Impotence Asthma GERD (gastroesophageal reflux disease) Sleep apnea Surgical History H/O wrist surgery H/O colonoscopy History of esophagogastroduodenoscopy (EGD) Family History Father Stroke Social History Housing: Apartment Patient Tobacco Use Status: Never used Tobacco e-Cigarette/Vaping Use: Never Used Second Hand Smoke Exposure: No service: Yes Current occupational status: retired Cognitive needs: No Hearing needs: No Vision needs: No Questionnaire Thrive Questionnaire Date Thrive assessed: 10/25/24 TRINIDAD-7 AMB Questionnaire TRINIDAD-7 Date TRINIDAD - 7 assessed: 11/01/24 Source: Developed by Drs. Karthik Espinosa, Ginger Carpio, Augusto Arellano and colleagues, with an educational breanna from [employer]. Physical exam (Primary Care) Tobacco/Smoking Status: Tobacco use Status Tobacco use date assessed 11/01/24 11/01/24 12:45 Patient Tobacco Use Status Never used Tobacco 11/01/24 12:45 e-Cigarette/Vaping Use Never Used 11/01/24 12:45 Thrive Assessment: Date of Thrive Assessment Date Thrive assessed 11/01/24 11/01/24 12:45 Coding Level of Care Code Est Pt Prev Care >65y(80619) Diagnoses Pre-op evaluation Z01.818 Assessment & Plan Assessment & Plan (1) Pre-op evaluation: Code(s): Z01.818 - Encounter for other preprocedural examination Category: Medical Plan .
== END 2024-12-05 10:46 | disposition home or self-care (01) ==
LOC: HO.HMCC 08:27
PROVIDERS: PCP Nurse Practitioner Family; Visit Provider Nurse Practitioner Family
DX: H26.9 Unspecified cataract (principal); Z01.818 Encounter for other preprocedural examination

== ENCOUNTER → 2024-12-05 08:27 | Outpatient (BNVA) | payer MEDICARE, SELFPAY | PROVIDERS: PCP Nurse Practitioner Family; Visit Provider Nurse Practitioner Family | DX: Z01.818 Encounter for other preprocedural examination (principal) ==

== ENCOUNTER 2024-12-20 10:54 | Outpatient (REF) | payer MEDICARE, SELFPAY ==
--- OUTSIDE RECORDS SUMMARY | 2024-12-20 12:54 | XMS_ITS | Data Portability ---
Author Organization [place] - [facility], Allergy Address [address] [address] Care Team Providers Care Lining Cementer Name Role Phone HARRIS PENNY Primary Care Provider [phone] Assessment Encounter Date Assessment Date Assessment LastModified by Organization Details LastModified Time 02/10/2024 02/10/2024 Patient was referred for evaluation of left parotid nodule. 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 Procedures Surgical History Date Name Laterality Status Provider Name and Address Organization Details Recorded Time procedure on wrist completed Ca Dawson [place] [facility] 02/10/2024 14:09:06 Imaging Results None recorded. Procedure Notes None [...] DAY, THEN 1 TABLET TWICE A DAY THEREAFTE R 02/09 completed Not Available Not Available Not Available cholecalcif mahesh (vitamin D3) 50 mcg (2,000 unit) capsule TAKE 1 CAPSULE BY MOUTH EVERY DAY active Not Available Not Available No t Available Vitals Date Recorded Body height Body mass index (BMI) Body weight Provider Name and Address Organization Details Last Updated DateTime 02/10/2024 170.18 cm 34 kg/m2 89234.54 g Ca Dawson [place] [facility] 02/10/2024 14:32:31 Social History None recorded. Functional Status None recorded. Mental Status None recorded. Family History Nothing Reported. Medical History Condition Response Arthritis Y Hypertension Y Past Encounters Encounter ID Performer Location Encounter Start Date Encounter Closed Date Diagnosis/Indication Diagnosis SNOMED-CT Code Diagnosis ICD10 Code Diagnosis Note [id number] ARTURO CONN MD [facility] [address] [address] 02/10/2024 13:39:06 02/10/2024 14:58:39 Neoplasm of uncertain behavior of parotid gland [id number] D37.030 Health Concerns Section Related Observation LastModified by Organization Detai ls LastModified Time None Recorded Concern Status LastModified by Organization Details LastModified Time None Recorded Advance Directives Directive None Recorded Payers Insurance Date Sequence Insurance Name Policy Number Policy Glass Covered Member ID Glass Member ID Guarantor Name 02/10/2024 1 [employer] - MEDICARE ADVANTAGE PLAN (MEDICARE REPLACEMENT HMO) [id number] Oswaldo Young [id number] Oswaldo Young Notes Date Note Type Note [...] spine 4mm hypodensity left parotid retired from [employer] ARTURO CONN MD [address] [place] [address], [place], [address], [facility] - [facility] 02/10/2024 14:56:17
== END 2024-12-20 10:55 | disposition home or self-care (01) ==
LOC: HO.HMGCLDS 10:54
PROVIDERS: PCP Nurse Practitioner Family; Referring Provider Nurse Practitioner Family; Visit Provider Nurse Practitioner Family
DX: R97.20 Elevated prostate specific antigen [PSA] (principal); Z12.5 Encounter for screening for malignant neoplasm of prostate
CPT/HCPCS: 36415; 84153

== ENCOUNTER 2024-12-24 08:57 | Outpatient (AMB) | payer MEDICARE, SELFPAY ==
--- NOTE | 2024-12-24 08:57 | A.OFFVIS_ITS ---
Intake Visit Reasons: 6m/PSA Intake Note: Patient presents today for tele visit follow up on: Elevated PSA and PSA Lab Results PSA: 3.60 Urology Medication:Finasteride Antibiotic Allergy:NONE Blood Thinner:NONE Medical Physics Professor Required: No Allergies No Known Allergies Allergy (Verified 12/24/24 09:21) Medication List - Last Reconciled 12/24/24 by SHANNEN Means albuterol sulfate 90 mcg/actuation 2 puffs inhalation Q6-8H PRN albuterol sulfate 90 mcg/actuation 2 inhalations inhalation Q6H PRN 30 days cholecalciferol (vitamin D3) 50 mcg PO DAILY famotidine 20 mg PO BEDTIME finasteride 5 mg PO DAILY 90 days fluticasone propion-salmeterol 250-50 mcg/dose (Wixela Inhub) 1 ea inhalation BID PRN losartan-hydrochlorothiazide 50-12.5 mg 1 tab PO DAILY memantine 7 mg PO DAILY 30 days omeprazole 40 mg PO DAILY rosuvastatin 10 mg PO DAILY HPI Comments Details: Oswaldo is a pleasant 79-year-old male patient of Dr. Kirkland who was accompanied by his daughter Lynette during today's telehealth appointment. He has a past medical history of Alzheimer's disease, asthma, GERD, insomnia, osteoarthritis, sleep apnea, and vitamin-D deficiency. He is being followed up on today for his history of hematuria and elevated PSA. In discussion with the patient and his daughter today he reports compliance with 5 mg of finasteride as prescribed. He does report having had 2 episodes of hematospermia approximately 1 month ago however has not noticed any other episodes since. He otherwise denies any bothersome urinary issues or concerns. Recent PSA results were reviewed with the patient and his daughter today as noted and trended below. Previous workup has included an in office cystoscopy for gross hematuria 02/06 which noted no suspicious bladder tumors or abnormalities. Cytology 12/07- few atypical urethral cells, Cytology 01/07- negative for high-grade urethral carcinoma, and Cytology from 07/09 negative for high-grade urethral carcinoma. Retroperitoneal ultrasound 12/07 noting right kidney with no calculi, or hydronephrosis noted. There is an anechoic cyst in the mid pole measuring 1.4 x 1.7 x 1.4 cm. Left kidney with no lesions, calculi, or hydronephrosis noted. The bladder is well distended and normal. Bilateral ureteral jets are demonstrated. Prevoid bladder volume is 240 mL. Postvoid bladder volume is 41.4 mL. The prostate is enlarged. It measures approxitamtely [address] urogram 02/06 was also performed previously noting no stones and or hydronephrosis, mild prostate enlargement, and 4 mm nodule at the left lung base. Patient was referred to pulmonology and is currently following up with Dr. Bustillos as planned. He denies urinary urgency, urinary frequency, incontinence, nocturia, hematuria, dysuria, foul smelling urine, changes to urinary stream, flank pain, fever, and or chills. He is happy with his current voiding parameters. PSAs are as follows: 01/07 6.9 12%, 06/09 2.4, 10/08 2.3, 03/10 2.6, 07/10 2.7, 12/09 3.6 We discussed potential causes of hematospermia as well as slight increase in PSA over the last 5 months. We discussed next follow-up in office to further assess prostate with DALE. We also discussed worsening symptoms. He discusses his recent surgical intervention with ophthalmology and has been recovering well. He also reports having followed up with neurology and has recently started memantine. All questions were answered. He otherwise offers no other issues or concerns at this time. [facility] Medical History VIANEY on CPAP Macular hole Pulmonary nodules Atelectasis Mild cognitive impairment Nodule of parotid gland Alzheimer disease Short-term memory loss Testicular hypofunction Lipoma Vitamin D deficiency Insomnia Osteoarthritis Impotence Asthma GERD (gastroesophageal reflux disease) Sleep apnea Surgical History H/O wrist surgery H/O colonoscopy History of esophagogastroduodenoscopy (EGD) Family History Father Stroke Social History Housing: Apartment Patient Tobacco Use Status: Never used Tobacco e-Cigarette/Vaping Use: Never Used Second Hand Smoke Exposure: No service: Yes Current occupational status: retired Cognitive needs: No Hearing needs: No Vision needs: No Review of Systems Const Reports as per [facility] Eyes Reports no additional complaints ENT Reports no additional complaints Card Reports no additional complaints Resp Reports as per HPI GI Reports as per HPI Reports as per HPI Neuro Reports as per HPI Psych Reports as per HPI Endo Reports no additional complaints Physical Exam Const General: cooperative Resp Effort & Inspection: normal respiratory effort and able to speak in complete sentences Psych Speech and movement: Clear speech present Affect: normal affect Attitude: cooperative Thought content: Normal thought content present Insight: Fair insight present (Psych) Judgement: Fair judgement present (Psych) Telehealth Telehealth Telehealth Platform: Yappe Location of provider rendering services: practice address Location of patient: address on file Patient Identification confirmed using: Name, : Yes Telehealth method: video Patient verbally consented to treatment: Yes Patient verbally consented to billing insurance company: Yes Patient informed of any privacy concerns related to visit: Yes Minutes spent on Phone/Video with Pt.: 15 Assessment & Plan Assessment & Plan (1) Elevated PSA: Code(s): R97.20 - Elevated prostate specific antigen [PSA] Category: Medical Plan Recent PSA results reviewed with the patient and his daughter today; as noted above. We discussed potential causes of hematospermia. We discussed next follow-up in office to further assess with DALE. He currently denies any bothersome urinary issues or concerns. He reports be happy with current voiding parameters. Continue finasteride as prescribed. Follow-up in 3 months with PSA; or sooner with any issues, concerns, and or questions. Orders: Orders PSA,Total (Free>4and<10) 3 Months R97.20 - Elevated prostate specific antigen [PSA] Patient Instructions: The patient had an opportunity to ask questions regarding the treatment plan. All questions were answered. Physical exam, labs, and imaging were discussed and reviewed in detail. As well as risks, benefits, and discussion of treatment choices. No major barriers to understanding were identified. The patient expressed understanding and agreement with the above treatment plan. The patient was made aware they should contact our office by phone for worsening of their current condition, the appearance of new symptoms, or with any questions or concerns. Compliance is encouraged with any medications and follow up testing that is ordered. It is a privilege to be allowed the opportunity to participate in? your urological care.? Again, if you have any questions or concerns If you have any questions or concerns please do not hesitate to contact me. The office is [phone]. This note is constructed using voice recognition software. While every effort has been made to ensure accuracy principal network engineer errors may have been included. Yours sincerely, DANN Means Coding Level of Care Code Tele Est Pt Level 3 (49332) Complex EM visit Add On G2211 Diagnoses Elevated PSA R97.20
== END 2024-12-24 09:42 | disposition home or self-care (01) ==
LOC: HO.HUSH 08:57
PROVIDERS: PCP Nurse Practitioner Family; Visit Provider Nurse Practitioner Family
DX: R97.20 Elevated prostate specific antigen [PSA] (principal)
CPT/HCPCS: 99213; G2211

== ENCOUNTER → 2024-12-24 08:57 | Outpatient (BNVA) | payer MEDICARE, SELFPAY | PROVIDERS: PCP Nurse Practitioner Family; Visit Provider Nurse Practitioner Family | DX: R91.8 Other nonspecific abnormal finding of lung field (principal); J44.9 Chronic obstructive pulmonary disease, unspecified; J96.10 Chronic respiratory failure, unspecified whether with hypoxia or hypercapnia; J98.11 Atelectasis; R41.3 Other amnesia; G47.34 Idiopathic sleep related nonobstructive alveolar hypoventilation; R31.9 Hematuria, unspecified; R97.20 Elevated prostate specific antigen [PSA] | CPT/HCPCS: 99212 ==

== ENCOUNTER 2024-12-24 14:13 | Outpatient (AMB) | payer MEDICARE, SELFPAY ==
--- NOTE | 2024-12-24 14:20 | A.OFFVIS_ITS ---
Vital Signs 12/24/24 14:21 Height 5 ft 7 in Weight 213 lb 13.574 oz BMI 33.5 BP 112/62 Blood Pressure Location Lt brachial Position Sitting Pulse 89 Pulse Source Pulse Oximeter Pulse Oximetry (%) 97 Oxygen Delivery Method Room Air Intake Visit Reasons: Pulmonary Nodules Barrel Drum Cutter Required: No Allergies No Known Allergies Allergy (Verified 12/24/24 14:23) HPI Comments Details: The patient is a 79-year-old gentleman who has no underlying respiratory issues and had a abnormal finding on an iimaging studies. Apparently the patient underwent a CT scan of the abdomen pelvis and was noted to have a small pulmonary nodule measuring 4 mm in size and is lower lung zones. The patient has not had any formal imaging studies of the chest however. Therefore is difficult to further address the pulmonary nodule in view of not being able to evaluate the whole lung parenchyma. The patient did also have a CT scan of the spine the cervical spine sometime in the spring that actually also demonstrated hypodensity, also measuring 4 mm on the parotid gland. This is something that may be have to be further evaluated as well. The patient currently is doing well from a respiratory status therefore we will hold off on any imaging studies. Will plan to do a formal CT scan of the chest to better address the pulmonary finding however. Once he does get the formal CT scan of the chest will review all the images together and make sure that this process is not progressing. 06/13/2023 the patient is here for a pulmonary follow-up visit. Overall the patient has been doing well. He denies any respiratory complaints. He did undergo a formal CT scan of the chest which we personally reviewed. Has not been officially been read yet. The patient has multiple pulmonary nodules in the largest nodule measuring 5-6 mm in size in the right hemithorax. In addition to that has numerous other nodules. More significant is the degree of atelectasis that he has in the right middle lobe area. Moderate severity. We did talk about ways to try to expand that right middle lobe. he is going to be provide an Acapella valve for CPT and also work on deep breathing exercises. Will plan to repeat the CT scan in 6 months to assess the degree of atelectasis. If the patient has atelectasis worsens or if he becomes symptomatic then an airway survey with bronchoscopy will be warranted. Otherwise regarding the pulmonary nodules that do not appear to be concerning in appearance. However, will require a 2 year follow-up altogether. In addition, the patient did have a cervical CT scan that we had discussed before that appeared to have a 4 mm hypodensity nodular density in the parotid gland. He will be following up with his primary care doctor soon so therefore they can discuss further evaluation for that during that visit. 12/19/2023 the patient is here for a pulmonary follow-up visit. Overall the patient has been doing well. Denies any underlying respiratory complaints. We did talk about trying to expand his atelectatic lung. Although he really did not use the Acapella valve. He did have a repeat CT scan of the chest which we personally reviewed and compared to his previous 1. his most recent CT scan has not been officially read. The largest nodule measuring 6 mm in size. I did compare the pulmonary nodules. Seems like the metoprolol pulmonary nodule slightly bigger in size. Still with well-circumscribed margins. There the nodular densities have been stable in size. Will have to wait for the final read on the CT scan. Based on the increased size of the nodular density will likely have to repeat the CT scan and treated 6 months. The patient does have a rescue inhaler. He has not had to use it. We did talk about increasing his exercise activity since he still has the atelectasis of the right middle lobe area. He is going to start walking more regularly and working on deep breathing exercises. 04/02/2024 the patient is here for a pulmonary follow-up visit. Overall he is doing well. Continues to have dyspnea on exertion. Vdcr-pt-ktvistsp severity. Also has gained some weight. We did talk about the importance of exercise and weight management. The patient is motivated and will start walking soon. We did talk about different breathing exercises as well. The patient will do well with an Acapella valve to cleaning mucus secretions. We did review his CT scan of the chest that he had back in 12/05/2023 demonstrating pulmonary nodules. Will go ahead and plan to repeat the CT scan in 12/04/2024 around that area to make sure that the nodules are stable. 06/25/2024 the patient is here for pulmonary follow-up visit. Overall he is doing okay. Still having some dyspnea on exertion but mild in severity. He unfortunately is not very active and is not exercising regularly. In addition to that he has been struggling with CPAP. He does not tolerate the mask. I did provide him with a new F 40 mask that he could try specially since his last softer hopefully can tolerated better. We did again reviewed his sleep study demonstrating moderate sleep apnea with severe hypoxia. He understands that the hypoxia can lead to worsening dementia and also increase wrapped cardiovascular risk. Therefore he is willing to try during the daytime to get used to it and then start using it at nighttime. As far as the pulmonary nodules last CT scan demonstrating the nodules was back in 12/05/2023. Will go ahead and get a CT scan in 12/04/2024 will follow-up sometime after that. 12/24/2024 the patient is here for a pulmonary follow-up visit. Overall he is doing good. The patient has issues with headaches in the morning and also been having issues with memory loss. He has a history of asthma. Will go ahead and request an overnight oximetry to assess any evidence of hypoxia. The patient continues use his respiratory medications as prescribed. Just uses it as needed. He has not required it often. He is considering using it before exercise which is okay. Usually 15 minutes before. We did review his CT scan of the chest done in 2024. It appears that he has multiple pulmonary nodules largest 1 measuring between 5-6 mm in size along with some scarring and atelectasis in the right hemithorax. 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 Will go ahead and have him repeat the CT scan in a year's time to make sure the nodules continue stable and the scarring maintain stable as well. Will follow-up in 6 months to make sure we follow-up with the overnight test in case he is on oxygen. [facility] Medical History (Updated 12/24/24 @ 14:33 by Woody Bustillos MD) VIANEY on CPAP Macular hole Pulmonary nodules Atelectasis Mild cognitive impairment Nodule of parotid gland Alzheimer disease Short-term memory loss Testicular hypofunction Lipoma Vitamin D deficiency Insomnia Osteoarthritis Impotence Asthma GERD (gastroesophageal reflux disease) Sleep apnea Surgical History H/O wrist surgery H/O colonoscopy History of esophagogastroduodenoscopy (EGD) Family History Father Stroke Social History Housing: Apartment Patient Tobacco Use Status: Never used Tobacco e-Cigarette/Vaping Use: Never Used Second Hand Smoke Exposure: No service: Yes Current occupational status: retired Cognitive needs: No Hearing needs: No Vision needs: No Review of Systems Const Denies chills, Reports daytime sleepiness, Denies fever(s) and Reports snoring ENT Reports no additional complaints Card Reports no additional complaints, Denies syncope and Reports dyspnea on exertion Resp Denies cough, Reports dyspnea on exertion, Reports snoring and Denies wheezing GI Denies abdominal pain and Denies heartburn Skin/Breast Denies rash Neuro Denies syncope Carlos/Lymph Denies lymphadenopathy Aller/Immun Denies wheezing Physical Exam Vital Signs: Last Vital Signs Pulse 89 12/24/24 14:21 BP 112/62 12/24/24 14:21 Pulse Ox 97 12/24/24 14:21 Oxygen Delivery Method Room Air 12/24/24 14:21 BMI result Body Mass Index 33.5 Const General: comfortable HEENT Head: Yes normocephalic Eyes General: appearance normal, both eyes and all related structures Neck Neck: Yes supple Chest Chest palpation & inspection: normal inspection of the chest Resp Effort & Inspection: normal respiratory effort Auscultation: clear to auscultation bilaterally Cardio Rate: regular rate Rhythm: regular rhythm Heart sounds: S1 normal heart sound present and S2 normal heart sound present GI Palpation (GI): Soft to palpation Skin General skin exam: no rashes or lesions noted Extrem General: Yes no clubbing, cyanosis or edema Assessment & Plan Assessment & Plan (1) Atelectasis: Code(s): J98.11 - Atelectasis Category: Medical (2) Pulmonary nodules: Code(s): R91.8 - Other nonspecific abnormal finding of lung field Category: Medical (3) Short-term memory loss: Code(s): R41.3 - Other amnesia Category: Medical (4) Nocturnal hypoxemia: Code(s): G47.34 - Idiopathic sleep related nonobstructive alveolar hypoventilation Category: Medical Plan CPT with acapella valve and deep breathing exercises repeat CT chest in November 2025 LONA as needed and prior to exercise Overnight oximetry F/U 6 months Orders: Orders Overnight Pulse Oximetry Today G47.34 - Idiopathic sleep related nonobstructive alveolar hypoventilation, R41.3 - Other amnesia CT chest wo IV con 1 Year R91.8 - Other nonspecific abnormal finding of lung field Coding Level of Care Code Est Pt Level 4 (78371) Complex EM visit Add On G2211 Diagnoses Atelectasis J98.11 Pulmonary nodules R91.8 Short-term memory loss R41.3 Nocturnal hypoxemia G47.34 Time Spent (min) 17
[2024-12-24 14:21] VITALS: BP 112/62; PULSE 89; O2SAT 97; BMI 33.5
== END 2024-12-24 14:43 | disposition home or self-care (01) ==
LOC: HO.HPS 14:14
PROVIDERS: PCP Nurse Practitioner Family; Visit Provider Hospitalist
DX: J98.11 Atelectasis (principal); R91.8 Other nonspecific abnormal finding of lung field; R41.3 Other amnesia; G47.34 Idiopathic sleep related nonobstructive alveolar hypoventilation
CPT/HCPCS: 99214; G2211

== ENCOUNTER 2025-01-28 11:52 | Outpatient (AMB) | payer MEDICARE, SELFPAY ==
--- OUTSIDE RECORDS SUMMARY | 2023-09-20 05:11 | XMS_ITS | Continuity of Care Document ---
Author Name [facility] Organization [facility] Care Team Providers Care Alterations Manager Name Role Phone [facility] Unavailable Unavailable Problems Combined list of problems from Department of Defense and Veterans Affairs facilities. It does not include entries that were removed or entered in error. Problem Status Onset Date Problem Type Date of Resolution Comments Source Environmental Allergies (ICD-9-CM 477.9) Active Condition [facility] Gastroesophageal Reflux Disease Active Condition Jun 10, 2009 Entered By: MOISÉS HUGGINS Comment: 06/24 esophagitis [facility] Health Maintenance Active Condition D ec 2005 Entered By: MOISÉS HUGGINS Comment: declines flu vaccine; tetanus imm [address] [place] [address] 2005 Entered By: MOISÉS HUGGINS Comment: Dr. Mayen pc in [facility] 2006 Entered By: MOISÉS HUGGINS Comment: ekg 05/24 nsr nsst changeDec 2007 Entered By: MOISÉS HUGGINS Comment: shingles vaccine 04/26/08Jun 10, 2009 Entered By: MOISÉS HUGGINS Comment: smoked briefly as teenager [facility] Hernia, Ventral (ICD-9-CM 553.20) Active Condition [facility] Hypertension * (ICD-9-CM 401.9) Active Condition [facility] Hypogonadism, Male (ICD-9-CM 257.2) Active Condition [facility] Mixed hyperlipidemia Active Condition Jun 28, 2006 Entered By: MOISÉS HUGGINS Comment: lipitor [facility] Obesity * (ICD-9-CM 278.00) Active Condition Jun 10, 2009 Entered By: MOISÉS HUGGINS Comment: referred to Move program 06/10/09 [facility] Premature atrial contractions Active Condition Jun 20, 2007 Entered By: MOISÉS HUGGINS Comment: [facility] Pruritus * (ICD-9-CM 698.9) Active Condition Jun 10, 2009 Entered By: MOISÉS HUGGINS Comment: left forearm [facility] Screening for Malignant Neoplasms of colon Active Condition Jun 28, 2006 Entered By: MOISÉS HUGGINS Comment: colonoscopy about 2000 benign polyp (1) [facility] Medications Combined list of outpatient medications from Department of Defense and Veterans Affairs facilities.Medications provided include 1) outpatient medications from the last 15 months, and 2) patient-reported medications. Medication Details Route Status Patient Instructions Prescription Expires Prescription Number Last Dispense Date Ordering Provider Order Date Order Qty Source ASPIRIN 81MG TAB,EC TAKE ONE TABLET BY MOUTH DIRECTED ORAL ACTIVE JAIR HUGGINS 2007 [facility] FISH OIL CAP/TAB ACTIVE JAIR HUGGINS 2008 [facility] MELOXICAM 15MG TAB TAKE ONE TABLET BY MOUTH DAILY ORAL ACTIVE DEIDRA IRVINGA 2011 [facility] RANITIDINE HCL 150MG TAB TAKE ONE TABLET BY MOUTH TWICE A DAY NEEDED ORAL ACTIVE JAIR HUGGINS 2008 [facility] Immunizations Combined list of available immunizations from the Department of Defense and Veterans Affairs facilities. Immunization Series Date Given Administered By Site Reaction Lot Number CVX Code Drug Cutlet Maker Pork Status Comments Source INFLUENZA, UNSPECIFIED FORMULATION 2015 88 complet ed Private doctor [facility] PNEUMOCOCCAL CONJUGATE PCV 13 2013 133 complet ed PATIENT HAD VACCINE ADMINISTE RED BY HIS PRIVATE DOCTOR . [facility] INFLUENZA, UNSPECIFIED FORMULATION 2011 88 complet ed Nick [facility] INFLUENZA, UNSPECIFIED FORMULATION 2010 88 complet ed Right Deltoid (IM) [facility] INFLUENZA, UNSPECIFIED FORMULATION 2009 88 complet ed [facility] PNEUMOCOCCAL (HISTORICAL) 2009 109 complet ed pt will confirm it [facility] INFLUENZA, UNSPECIFIED FORMULATION 2007 88 complet ed Nick [facility] TD(ADULT) UNSPECIFIED FORMULATION 2005 139 complet ed CLashondaW. BILL [facility]NG [facility] Encounters Combined list of: 1) Encounters from Department of Veterans Affairs facilities going backup to the last 18 months, not all VA inpatient encounters are included; 2) Encounters from the Department of Defense facilities going backup to 280 months. Location Location Details Encounter Type Encounter Number Reason For Visit Attending Provider ADM Date DC Date Status Disposition Source [facility] [facility] Outpatient Encounter [id number] 09/19 [place] [facility] [place] [facility] Social History Combined list of available smoking, tobacco, and other social history from Department of Defense and Veterans Affairs facilities. Social History Type Response Date Comment Sourc e Tobacco smoking status NHIS LIFETIME NON TOBACCO USER 09/10/2016 quit 52 years [facility] History of tobacco use LIFETIME NON TOBACCO USER 05/31/2012 quit 47 years [facility] History of tobacco use LIFETIME NON TOBACCO USER 06/02/2011 quit 42 years [facility] History of tobacco use LIFETIME NON TOBACCO USER 09/15/2010 [facility] History of tobacco use LIFETIME NON TOBACCO USER 05/27/2010 [facility] History of tobacco use PREVIOUS TOBACCO USER 07/08/2009 [facility] History of tobacco use LIFETIME NON TOBACCO USER 06/10/2009 [facility] History of tobacco use LIFETIME NON TOBACCO USER 06/17/2008 [facility] History of tobacco use LIFETIME NON TOBACCO USER 06/20/2007 [facility] History of tobacco use LIFETIME NON TOBACCO USER 06/28/2006 [facility]
[2025-01-28 12:39] VITALS: BP 124/62; RESP 16; TEMP 37.1; O2SAT 96; BMI 34.5
--- NOTE | 2025-01-28 12:39 | A.OFFPC_ITS ---
Vital Signs 01/28/25 12:39 Height 5 ft 7 in Weight 220 lb BMI 34.5 BP 124/62 Blood Pressure Location Lt brachial Position Sitting Respiration 16 Pulse Source Pulse Oximeter Temp 98.8 F Temp Source Oral Pulse Oximetry (%) 96 Oxygen Delivery Method Room Air Intake Visit Reasons: PE- see comments [employer] Certified Network Associate Required: No Accompanied by: Daughter Allergies No Known Allergies Allergy (Verified 01/28/25 12:55) Medication List - Last Reconciled 01/28/25 by JOHNNY HernandezP- albuterol sulfate 90 mcg/actuation 2 inhalations inhalation Q6H PRN 30 days cholecalciferol (vitamin D3) 50 mcg PO DAILY famotidine 20 mg PO BEDTIME finasteride 5 mg PO DAILY 90 days fluticasone propion-salmeterol 250-50 mcg/dose (Wixela Inhub) 1 ea inhalation BID PRN losartan-hydrochlorothiazide 50-12.5 mg 1 tab PO DAILY omeprazole 40 mg PO DAILY rosuvastatin 10 mg PO DAILY Tobacco use date assessed: 01/28/25 Fall risk assessment: No Falls in past year Last assessed Fall Risk: 01/28/25 Dental Screening Dental Screen Date: 01/28/25 Did you have a dental visit in the last 12 months?: Yes Did you have a dental problem in the last 6 months where you did not have access to dental care?: No Was dental information given to patient?: Patient has dentist HPI PE- see comments HPI Details History of Present Illness The patient is a 79-year-old male presenting with a physical examination. He has a history of dementia, which is currently well-managed, and he remains pleasant and cooperative during the visit. The patient is also noted to be obese, which is a concern for his overall health. He follows up regularly with neurology, urology, and pulmonology, indicating a comprehensive approach to his healthcare management. Preventative care measures are in place, with his colonoscopy being up to date. His daughter is his primary caregiver Health Maintenance - Colonoscopy is up to date Social History - Family: One of his primary care provid ers is his daughter Review of Systems - General: Reports doing well overall -denies any cp, sob, n/v, fevers, chills , n/v, dizziness, constipation, diarrhea, SI or hi Physical Exam General: Cooperative, healthy appearing, comfortable, no acute distress and well developed, obese Orientation: Patient oriented x3 Limitations: No limitations Head: Normal to inspection Ears: Hearing grossly normal bilaterally Nose: Normal external nose present Face and sinus: Normal facial exam Eyes: Appearance normal, both eyes and all related structures Neck: Normal visual inspection and Yes full ROM Respiratory: Slightly diminished bilaterally, able to speak in complete sentences Cardiovascular: Regular rate and rhythm. Normal S1 and S2 GI: Normal to inspection. Soft to palpation and nontender Skin: macular/papular to face/scalp Neuro: Patient oriented x3 Extremities: Normal to inspection Results Plan The patient will continue to follow up with neurology, urology, and pulmonology for ongoing management of his conditions. Preventative care measures, including maintaining an up-to-date colonoscopy, will be emphasized. encouraged to get labs drawn in the near future [facility] Medical History VIANEY on CPAP Macular hole Pulmonary nodules Atelectasis Mild cognitive impairment Nodule of parotid gland Alzheimer disease Short-term memory loss Testicular hypofunction Lipoma Vitamin D deficiency Insomnia Osteoarthritis Impotence Asthma GERD (gastroesophageal reflux disease) Sleep apnea Surgical History H/O wrist surgery H/O colonoscopy History of esophagogastroduodenoscopy (EGD) Family History Father Stroke Social History Housing: Apartment Patient Tobacco Use Status: Never used Tobacco e-Cigarette/Vaping Use: Never Used Second Hand Smoke Exposure: No service: Yes Current occupational status: retired Cognitive needs: No Hearing needs: No Vision needs: No Questionnaire PHQ-9 Over the last 2 weeks, how often have you been bothered by any of the following problems? 1. Little interest or pleasure in doing things: not at all 2. Feeling down, depressed, or hopeless: not at all 3. Trouble falling or staying asleep, or sleeping too much: not at all 4. Feeling tired or having little energy: not at all 5. Poor appetite or overeating: not at all 6. Feeling bad about yourself - or that you are a failure or have let yourself or your family down: not at all 7. Trouble concentrating on things, such as reading the newspaper or watching television: not at all 8. Moving or speaking so slowly that other people could have noticed. Or the opposite - being so fidgety or restless that you have been moving around a lot more than usual: not at all 9. Thoughts that you would be better off or of hurting yourself in some way: not at all Total score: 0 Depression Screening Interpretation: Negative Depression Screening Done: Yes [id number] - PHQ-9 Billing: Yes Source: Developed by Drs. Karthik Espinosa, Ginger Carpio, Augusto Arellano and colleagues, with an educational breanna from [employer]. Thrive Questionnaire Date Thrive assessed: 01/28/25 I am a: Patient What is your living situation today?: I have a steady place to live Within the past 12 months, did the food you bought not last and you didn't have the money to get more?: Never true Within the past 12 months, did you worry whether your food would run out before you got money to buy more?: Never true Do you have trouble paying for medicines?: No Do you have trouble getting transportation to medical appointments?: No Do you have trouble paying your heating and electricity bill?: No Do you have trouble taking care of your child, family member or friend?: I choose not to answer this question Do you have trouble with day-to-day activities such as bathing, preparing meals, shopping, managing finances, etc.?: No Are you currently unemployed and looking for a job?: No Are you interested in more education?: No Please select the resources that you would like help with: None Currently or been in a relationship where the following occur: No concerns reported THRIVE Score: 0 TRINIDAD-7 AMB Questionnaire TRINIDAD-7 Date TRINIDAD - 7 assessed: 01/28/25 Feeling nervous, anxious, or on edge: 0 = Not at all Not being able to stop or control worryin = Not at all Worrying too much about different things: 0 = Not at all Trouble relaxin = Not at all Being so restless that it is hard to sit still: 0 = Not at all Becoming easily annoyed or irritable: 0 = Not at all Feeling afraid as if something awful might happen: 0 = Not at all Total TRINIDAD-7 score (0-4 normal; 5-9 mild; 10-14 moderate; 15-21 severe): 0 Source: Developed by Drs. Karthik Espinosa, Ginger Carpio, Augusto Arellano and colleagues, with an educational breanna from [employer]. TRINIDAD-7 Assessment Billing TRINIDAD-7 Assessment Tool: TRINIDAD-7 Assessment 15733 Physical exam (Primary Care) Vital Signs: Last Vital Signs Temp 98.8 F 01/28/25 12:39 Resp 16 01/28/25 12:39 BP 124/62 01/28/25 12:39 Pulse Ox 96 01/28/25 12:39 Oxygen Delivery Method Room Air 01/28/25 12:39 BMI result Body Mass Index 34.5 Tobacco/Smoking Status: Tobacco use Status Tobacco use date assessed 01/28/25 01/28/25 12:45 Patient Tobacco Use Status Never used Tobacco 01/28/25 12:45 e-Cigarette/Vaping Use Never Used 01/28/25 12:45 PHQ-9: PHQ-9 Score PHQ-9: Total score 0 01/28/25 12:49 Depression Screening Interpretation: Negative Thrive Assessment: Date of Thrive Assessment Date Thrive assessed 01/28/25 01/28/25 12:45 Currently or been in a relationship where the following occur: No concerns reported Coding Level of Care Code Est Pt Prev Care >65y(68809) Diagnoses Skin lesion L98.9 Encounter for routine adult physical exam with abnormal findings Z00.01 Additional Codes TRINIDAD-7 Assessment Billing - TRINIDAD-7 Assessment Tool: TRINIDAD-7 Assessment 00975 ([id number]) PHQ-9 - 41405 - PHQ-9 Billing: Yes ([id number]) Assessment & Plan Assessment & Plan (1) Skin lesion: Code(s): L98.9 - Disorder of the skin and subcutaneous tissue, unspecified Category: Medical (2) Encounter for routine adult physical exam with abnormal findings: Code(s): Z00.01 - Encounter for general adult medical examination with abnormal findings Category: Medical Plan . Orders: Referrals Dermatology Referral L98.9 - Disorder of the skin and subcutaneous tissue, unspecified
--- OUTSIDE RECORDS SUMMARY | 2025-01-28 12:58 | XMS_ITS | Data Portability ---
Author Organization [place] - [facility], Allergy Address [address] [address] Care Team Providers Care Road Engineer Freight Name Role Phone HARRIS PENNY Primary Care Provider Assessment Encounter Date Assessment Date Assessment LastModified by Organization Details LastModified Time 02/10/2024 02/10/2024 Patient was referred for evaluation of left parotid nodule. 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 - [facility] 14:55:26 Problem Notes None recorded. Procedures Surgical History Date Name Laterality Status Provider Name and Address Organization Details Recorded Time procedure on wrist completed Ca Dawson [place] - [facility] 02/10/2024 14:09:06 Imaging Results None recorded. Procedure [...] Updated DateTime 02/10/2024 170.18 cm 34 kg/m2 94056.54 g Ca Dawson [facility] 02/10/2024 14:32:31 Social History None recorded. Functional Status None recorded. Mental Status None recorded. Family History Nothing Reported. Medical History Condition Response Arthritis Y Hypertension Y Past Encounters Encounter ID Performer Location Encounter Start Date Encounter Closed Date Diagnosis/Indication Diagnosis SNOMED-CT Code Diagnosis ICD10 Code Diagnosis Note [id number] ARTURO CONN MD [facility] [address] [address] 02/10/2024 13:39:06 02/10/2024 14:58:39 Neoplasm of uncertain behavior of parotid gland 46057671 D37.030 Health Concerns Section Related Observation LastModified by Organization Detai ls LastModified Time None Recorded Concern Status LastModified by Organization Details LastModified Time None Recorded Advance Directives Directive None Recorded Payers Insurance Date Sequence Insurance Name Policy Number Policy Glass Covered Member ID Glass Member ID Guarantor Name 02/10/2024 1 [employer] - MEDICARE ADVANTAGE PLAN (MEDICARE REPLACEMENT HMO) [id number] Oswaldo Young [id number] Oswaldo Young Notes Date Note Type Note Provider Name and Address Organization Details Recorded Time 02/10/2024 text/html new patient referred for parotid massno symptoms of pain in side of necktobacco - in 1960s 10/24/23 [facility] -13 x 6 x 7 mm left intraparotid lymph node, 11 x 5 x 7 mm right intraparotid lymph node 12/11/22 ct cervical spine 4mm hypodensity left parotid retired from [employer] ARTURO CONN MD [address] [place] [address], [id number], [facility] - [facility] 02/10/2024 14:56:17
--- OUTSIDE RECORDS SUMMARY | 2025-01-28 12:59 | XMS_ITS ---
Author Name [facility] Organization Unknown History of Medication Use Medication Directions Dispensed Refills Start Date End Date Stat us Memantine Hydrochloride 5mg Tablet 04/04/2023 active Rosuvastatin Calcium 10mg Tablet 04/04/2023 active Allergies Allergen Reaction Severity Comment Documented Date Source Statu s .NO KNOWN DRUG ALLERGIES ENS_POD CRCT Problems Problem Status Onset Date Problem Type Date of Resolution Source Tendonitis of left ankle active 2023-04-04 ProblemAct ENS_PODCRCT Hallux valgus, right foot active 2023-06-15 ProblemAct E[facility] Tendonitis of right ankle active 2023-04-04 ProblemAct E[facility] Osteoarthritis of ankle active 2023-04-04 ProblemAct E[facility] Pain in right foot active 2023-06-15 EncounterDiagnosisAc t ENS_PODCRCT Tinea unguium, onychomycosis active 2022-09-13 ProblemAct E[facility] Heel pain active 2023-04-04 ProblemAct ENS_PODC RCT Osteoarthritis of ankle active 2023-04-04 ProblemAct ENS_PODCRCT Care Team Organization Name Specialty Phone Email Start Date End [facility] 12/18/2022 [facility]
== END 2025-01-28 13:20 | disposition home or self-care (01) ==
LOC: HO.HMCC 11:52
PROVIDERS: PCP Nurse Practitioner Family; Visit Provider Nurse Practitioner Family
DX: L98.9 Disorder of the skin and subcutaneous tissue, unspecified (principal); Z00.01 Encounter for general adult medical examination with abnormal findings

== ENCOUNTER → 2025-01-28 11:52 | Outpatient (BNVA) | payer MEDICARE, SELFPAY | PROVIDERS: PCP Nurse Practitioner Family; Visit Provider Nurse Practitioner Family | DX: Z00.01 Encounter for general adult medical examination with abnormal findings (principal); L98.9 Disorder of the skin and subcutaneous tissue, unspecified; F03.90 Unspecified dementia, unspecified severity, without behavioral disturbance, psychotic disturbance, mood disturbance, and anxiety; Z13.31 Encounter for screening for depression; Z13.39 Encounter for screening examination for other mental health and behavioral disorders | CPT/HCPCS: 96127; 99397 ==

== ENCOUNTER 2025-03-29 11:00 | Outpatient (REF) | payer MEDICARE, SELFPAY ==
--- OUTSIDE RECORDS SUMMARY | 2020-04-11 08:55 | XMS_ITS | Continuity of Care Document ---
Author Organization [facility] Address [address] [place] [address] Phone Care Team Providers Care Robot Operator Name Role Phone Derian Chaevz OD Unavailable Unavailable Allergies, Adverse Reactions, Alerts [...] on Encounter [facility], [address] [place], [place], [id number] , [place] [phone] [facility] Foreign body sensation (chief complaint) Ocular pain, right eyePunctate keratitis, right eye Sep-2 0 [facility]. [address], [place], [id number] , . tel: [phone] Referring Provider: Derian Engle, [address] [place] [address], [id number] . tel:[phone] [facility], [address] [place], [place], [id number] , [place] tel: [phone] TEA Tribbey lattice (chief complaint) Unspecified chorioretinal scars, right eyeVitreomacular adhesion, left eyeVitreous degeneration, right eyeSerous detachment of retinal pigment epitheliumPuckering of macula, bilateral Aug- 0 [facility]. [address] [place] [address], [id number] , [place]. tel:[phone] Referring Provider: Sotero Diaz, [address] [place] [address], [id number] . tel:[phone] [facility], [address] [place] [address], [id number] , [place] tel: [phone] TEA [place] PO other (chief complaint) Round hole, right eyeHorseshoe tear of retina without detachment, right eyeLattice degeneration of retina, right eye Nov- 9 [facility]. [address] [place] [address], [id number] , [place]. tel: [phone] Referring Provider: Sotero Diaz, [address] [place] [address], [id number] . tel:[phone] [facility], [address] [place], [place], [id number] , [place] tel: [phone] TEA [place]bey Retinal Tear (chief complaint) Horseshoe tear of retina without detachment, right eyeRound hole, right eyeLattice degeneration of retina, right eye Oct-3 0- 9 [facility]. [facility] [place], [place], [id number] , [place]. tel: [phone] Referring Provider: Derian Engle, [address] [place], [address] . tel:[phone] [facility], [address] [place] [address], [id number] , tel: [phone] TEA Gerton floaters (chief complaint) Horseshoe tear of retina without detachment, right eyeLattice degeneration of retina, right eyeRound hole, right eyeVitreous degeneration, right eyeVitreomacular adhesion, left eyeSerous detachment of retinal pigment epithelium Oct-1 9 [facility]. [address] [place] [address], [id number] , [place]. tel: [phone] Referring Provider: Sotero Diaz, [address] [place] [address], [id number] . tel:[phone] [facility], [address] [place] [address], [id number] , [place] tel: [phone] [address]A [address] Foreign body sensation (chief complaint) Vitreous degeneration, right eyeLattice degeneration of retina, right eyeHorseshoe tear of retina without detachment, right eye Oct-1 9 [facility]. [address] [place] [address], [id number] , . tel: [phone] Referring Provider: Derian Engle, [address] [place] [address], [id number] . tel:[phone] Family History Family Member Type Diagnosis Age [...] Future Order: Radiology Order OC T Macula ([id number]), Collected on: Ordered Future Order: Radiology Order Be rosales Vera ([id number]), Sent on: Sent Future Order: Radiology Order OC T Macula ([id number]), Collected on: Ordered History Of Present Illness [...] scars, right eye Impression/Plan Related to Vitre ous degeneration, right eye Impression/Plan Related to Pucke ring of macula, bilateral Impression/Plan Related to Vitre omacular adhesion, left eye Impression/Plan Related to Unspe cified chorioretinal scars, right eye Impression/Plan Related to Serou s detachment of retinal pigment epithelium [address] Chapincito Braden for [...] without detachment, right eye Impression/Plan Related to Serou s detachment of retinal pigment epithelium Oct Impression/Plan Related to Horse shoe tear of retina without detachment, right eye Impression/Plan Related to Horse shoe tear of retina without detachment, right eye Impression/Plan Related to Latti ce degeneration of retina, right eye Impression/Plan Related to Vitre ous degeneration, right eye Impression/Plan Related to Vitre omacular adhesion, left eye Impression/Plan Related to Vitre ous degeneration, right eye Impression/Plan Related to Round hole, right eye Impression/Plan Related to Latti ce degeneration of retina, right eye Assessments Type Assessment Date assessment Ocular pain, right eye 20 assessment Punctate keratitis, right eye Se impression Ocular pain, right eye: H57.11 S impression Punctate keratitis, right eye: H 16.141 Patient Care Teams Name Effective Dates (start - stop) Status Members No Information
[2025-03-29 14:14] LABS: PSA,Total (Free>4and<10) 3.70 ng/mL (0.00-4.00)
== END 2025-03-29 11:01 | disposition home or self-care (01) ==
LOC: HO.HMGCLDS 11:00
PROVIDERS: PCP Nurse Practitioner Family; Visit Provider Nurse Practitioner Family
DX: R97.20 Elevated prostate specific antigen [PSA] (principal); Z12.5 Encounter for screening for malignant neoplasm of prostate
CPT/HCPCS: 36415; 84153

== ENCOUNTER 2025-04-01 13:16 | Outpatient (REF) | payer MEDICARE, SELFPAY | END 2025-04-01 13:17 | disposition home or self-care (01) | LOC: HO.LNP 13:16 | PROVIDERS: PCP Nurse Practitioner Family; Visit Provider Nurse Practitioner Family | DX: R97.20 Elevated prostate specific antigen [PSA] (principal); R31.9 Hematuria, unspecified; R82.89 Other abnormal findings on cytological and histological examination of urine; Z79.899 Other long term (current) drug therapy | CPT/HCPCS: 81003; 88112; 99212 ==

== ENCOUNTER 2025-04-01 13:16 | Outpatient (AMB) | payer MEDICARE, SELFPAY ==
--- OUTSIDE RECORDS SUMMARY | 2020-04-11 08:55 | XMS_ITS | Continuity of Care Document ---
Author Organization [facility] Address [address] [facility] [place] [address] Phone Care Team Providers Care Customer Service Advisor Name Role Phone Derian Chavez OD Unavailable [...] on Encounter [facility], [address] [place], [place], [id number] , [place] [phone] [facility] Foreign body sensation (chief complaint) Ocular pain, right eyePunctate keratitis, right eye Sep-2 0 Scott Menard. [address] [place], [place], [id number] , . tel: [phone] Referring Provider: Derian Engle, [address] [place] [address], [id number] . tel:[phone] [facility], [address] [place], [place], [id number] , [place] tel: [phone] TEA [place] lattice (chief complaint) Unspecified chorioretinal scars, right eyeVitreomacular adhesion, left eyeVitreous degeneration, right eyeSerous detachment of retinal pigment epitheliumPuckering of macula, bilateral Aug- 0 [facility]. [address] [place] [address], [id number] , [place]. tel:[phone] Referring Provider: Sotero Diaz, [address] [place] [address], [address] . tel:[phone] [facility], [address] [place] [address], [id number] , [place] tel: [phone] TEA [place] PO other (chief complaint) Round hole, right eyeHorseshoe tear of retina without detachment, right eyeLattice degeneration of retina, right eye Nov- 9 [facility]. [address] [place] [address], [id number] , [place]. tel: [phone] Referring Provider: Sotero Diaz, [address] [place] [address], [address] . tel:[phone] [facility], [address] [place], [place], [id number] , [place] tel: [phone] TEA [place] Retinal Tear (chief complaint) Horseshoe tear of retina without detachment, right eyeRound hole, right eyeLattice degeneration of retina, right eye Oct-3 0- [address] [facility]. [facility] [place], [place], [id number] , [place]. tel: [phone] Referring Provider: Derian Engle, [address] [place], [address] . tel:[phone] [facility], [address] [place] [address], [id number] , tel: [phone] TEA [place] floaters (chief complaint) Horseshoe tear of retina without detachment, right eyeLattice degeneration of retina, right eyeRound hole, right eyeVitreous degeneration, right eyeVitreomacular adhesion, left eyeSerous detachment of retinal pigment epithelium Oct-1 9 [facility]. [address] [place] [address], [id number] , [place]. tel: [phone] Referring Provider: Sotero Diaz, [address] [place] [address], [address] . tel:[phone] [facility], [address] [place] [address], [id number] , [place] tel: [phone] [address] Foreign body sensation (chief complaint) Vitreous degeneration, right eyeLattice degeneration of retina, right eyeHorseshoe tear of retina without detachment, right eye Oct-1 9 Scott Menard. [address] [place] [address], [id number] , . tel: [phone] Referring Provider: Derian Engle, [address] [place] [address], [address] . tel:[phone] Family History Family Member Type Diagnosis Age [...] Future Order: Radiology Order OC T [place] ([id number]), Collected on: Ordered Future Order: Radiology Order Be rosales Vera (Z-BEE-LIST), Sent on: Sent Future Order: Radiology Order OC T [place] ([id number]), Collected on: Ordered History Of Present Illness [...] Impression/Plan Related to Round hole, right eye Apr- NA with Dr. Craig or Dr. Diaz for retinal tear OD. 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
--- NOTE | 2025-04-01 13:20 | MHC.OFFVIS ---
Intake Visit Reasons: 3m/PSA Intake Note: patient presents today for: 3mo/PSA urology medications: finasteride blood thinners: none labs done 03/29/25: t-psa 3.70 Progressive Care Nurse Required: No Accompanied by: Daughter Allergies No Known Allergies Allergy (Verified 04/01/25 14:02) Medication List - Last Reconciled 04/01/25 by JOHNNY MeansP- albuterol sulfate 90 mcg/actuation 2 inhalations inhalation Q6H PRN 30 days cholecalciferol (vitamin D3) 50 mcg PO DAILY famotidine 20 mg PO BEDTIME finasteride 5 mg PO DAILY 90 days fluticasone propion-salmeterol 250-50 mcg/dose (Wixela Inhub) 1 ea inhalation BID PRN losartan-hydrochlorothiazide 50-12.5 mg 1 tab PO DAILY omeprazole 40 mg PO DAILY rosuvastatin 10 mg PO DAILY HPI Comments Details: Oswaldo is a pleasant 79-year-old male patient of Dr. Kirkland who was accompanied by his daughter Lynette during todays office visit. He has a past medical history of Alzheimer's disease, asthma, GERD, insomnia, osteoarthritis, sleep apnea, and vitamin-D deficiency. He presents to the office today for a follow up of his hematuria and elevated PSA. In discussion with the patient and his daughter today he reports compliance with 5 mg of finasteride as prescribed. He otherwise denies any bothersome urinary issues or concerns. Recent PSA results were reviewed with the patient and his daughter today as noted and trended below. Previous workup has included an in office cystoscopy for gross hematuria 02/06 which noted no suspicious bladder tumors or abnormalities. Cytology 12/07- few atypical urethral cells, Cytology 01/07- negative for high-grade urethral carcinoma, and Cytology from 07/09 negative for high-grade urethral carcinoma. Retroperitoneal ultrasound 12/07 noting right kidney with no calculi, or hydronephrosis noted. There is an anechoic cyst in the mid pole measuring 1.4 x 1.7 x 1.4 cm. Left kidney with no lesions, calculi, or hydronephrosis noted. The bladder is well distended and normal. Bilateral ureteral jets are demonstrated. Prevoid bladder volume is 240 mL. Postvoid bladder volume is 41.4 mL. The prostate is enlarged. It measures approximately [address] urogram 02/06 was also performed previously noting no stones and or hydronephrosis, mild prostate enlargement, and 4 mm nodule at the left lung base. Patient was referred to pulmonology and is currently following up with Dr. Bustillos as planned. He denies urinary urgency, urinary frequency, incontinence, nocturia, hematuria, dysuria, foul smelling urine, changes to urinary stream, flank pain, fever, and or chills. He is happy with his current voiding parameters. PSAs are as follows: 01/07 6.9 12%, 06/09 2.4, 10/08 2.3, 03/10 2.6, 07/10 2.7, 12/09 3.6, 04/11 3.7 We discussed potential causes of slight increase in PSA over the last few months we discussed further treatment options and risks and benefits of these treatment options. All questions were answered. He otherwise offers no other issues or concerns at this time. [facility] Medical History VIANEY on CPAP Macular hole Pulmonary nodules Atelectasis Mild cognitive impairment Nodule of parotid gland Alzheimer disease Short-term memory loss Testicular hypofunction Lipoma Vitamin D deficiency Insomnia Osteoarthritis Impotence Asthma GERD (gastroesophageal reflux disease) Sleep apnea Surgical History H/O wrist surgery H/O colonoscopy History of esophagogastroduodenoscopy (EGD) Family History Father Stroke Social History Housing: Apartment Patient Tobacco Use Status: Never used Tobacco e-Cigarette/Vaping Use: Never Used Second Hand Smoke Exposure: No service: Yes Current occupational status: retired Cognitive needs: No Hearing needs: No Vision needs: No Review of Systems Const Reports as per HPI Eyes Reports no additional complaints ENT Reports no additional complaints Card Reports no additional complaints Resp Reports as per HPI GI Reports as per HPI Reports as per HPI Neuro Reports as per HPI Psych Reports as per HPI Endo Reports no additional complaints Physical Exam Const General: cooperative, healthy appearing, comfortable, no acute distress, well developed, alert and awake Nutritional Appearance: overweight Orientation/consciousness: oriented to person Limitations: no limitations HEENT Head: Yes normal to inspection, Yes normocephalic and Yes atraumatic Ears: hearing grossly normal bilaterally Eyes General: appearance normal, both eyes and all related structures Neck Neck: Yes normal visual inspection and Yes trachea midline Chest Chest palpation & inspection: normal inspection of the chest Resp Effort & Inspection: normal respiratory effort and able to speak in complete sentences Cardio Rate: regular rate GI Inspection: Yes normal to inspection General: Yes no CVA tenderness Back/Spine/Pelvis Back: no CVA tenderness Skin General skin exam: no rashes or lesions noted Neuro General: oriented to person Extrem General: Yes normal to inspection Psych Appearance: grossly normal and well kempt Mental Status: mental status grossly normal Speech and movement: Normal speech and movement present and Clear speech present Affect: normal affect Attitude: cooperative Thought process: Normal thought process present Thought content: Normal thought content present Insight: Limited insight present (Psych) Judgement: Limited judgement present (Psych) Results AMB Urinalysis, Automated UA Leukoctes 0 Lata/uL Last Edit by AVERY Perez on 04/01/25 15:37 UA Nitrite Negative Last Edit by AVERY Perez on 04/01/25 15:37 UA Urobilinogen 0.2 mg/dL Last Edit by AVERY Perez on 04/01/25 15:37 UA Protein 0 mg/dL Last Edit by AVERY Perez on 04/01/25 15:37 UA pH 6.0 Last Edit by AVERY Perez on 04/01/25 15:37 UA Blood 25 Brenton/uL Last Edit by VAERY Perez on 04/01/25 15:37 UA Specific Cedar 1.010 Last Edit by AVERY Perez on 04/01/25 15:37 UA Ketone Negative Last Edit by AVERY Perez on 04/01/25 15:37 UA Bilirubin 0 mg/dL Last Edit by AVERY Perez on 04/01/25 15:37 UA Glucose 0 mg/dL Last Edit by AVERY Perez on 04/01/25 15:37 Results Reviewed Results Reviewed: Laboratory Last Values Urine pH (Auto) 6.0 04/01/25 15:36 Specific Cedar (Auto) 1.010 04/01/25 15:36 Urine Protein (Auto) 0 mg/dL 04/01/25 15:36 Glucose (UA)(Auto) 0 mg/dL 04/01/25 15:36 Urine Ketones (Auto) Negative 04/01/25 15:36 Urine Blood (Auto) 25 Brenton/uL 04/01/25 15:36 Urine Nitrite (Auto) Negative 04/01/25 15:36 Urine Bilirubin (Auto) 0 mg/dL 04/01/25 15:36 Urine Urobilinogen (Auto) 0.2 mg/dL 04/01/25 15:36 Leukocyte Esterase (Auto) 0 Lata/uL 04/01/25 15:36 Assessment & Plan Assessment & Plan (1) Elevated PSA: Code(s): R97.20 - Elevated prostate specific antigen [PSA] Category: Medical (2) Abnormal urine cytology: Code(s): R82.89 - Other abnormal findings on cytological and histological examination of urine Category: Medical (3) Hematuria: Code(s): R31.9 - Hematuria, unspecified Category: Medical Plan Recent PSA results reviewed with the patient and his daughter today; as noted above. He currently denies any bothersome urinary issues or concerns. He reports be happy with current voiding parameters. Continue finasteride as prescribed. We did discussed potential causes for slight increase in PSA over the last 9 months as well as further treatment options and risks and benefits of these treatment options. All questions were answered. Will continue with surveillance monitoring at this time. Follow-up in 3-months with PSA; or sooner with any issues, concerns, and or questions. Orders: Orders Prostate Specific Antigen 3 Months R97.20 - Elevated prostate specific antigen [PSA] Urine Cytology Today R31.9 - Hematuria, unspecified, R82.89 - Other abnormal findings on cytological and histological examination of urine AMB Urinalysis Automated Today Z13.9 - Encounter for screening, unspecified Patient Instructions: The patient had an opportunity to ask questions regarding the treatment plan. All questions were answered. Physical exam, labs, and imaging were discussed and reviewed in detail. As well as risks, benefits, and discussion of treatment choices. No major barriers to understanding were identified. The patient expressed understanding and agreement with the above treatment plan. The patient was made aware they should contact our office by phone for worsening of their current condition, the appearance of new symptoms, or with any questions or concerns. Compliance is encouraged with any medications and follow up testing that is ordered. It is a privilege to be allowed the opportunity to participate in? your urological care.? Again, if you have any questions or concerns If you have any questions or concerns please do not hesitate to contact me. The office is [phone]. This note is constructed using voice recognition software. While every effort has been made to ensure accuracy supervisor roller printing errors may have been included. Yours sincerely, DANN Means Coding Level of Care Code Est Pt Level 3 (53937) Complex EM visit Add On G2211 Diagnoses Elevated PSA R97.20 Abnormal urine cytology R82.89 Hematuria R31.9
== END 2025-04-01 13:58 | disposition home or self-care (01) ==
LOC: HO.HUSH 13:16
PROVIDERS: PCP Nurse Practitioner Family; Visit Provider Nurse Practitioner Family
DX: R97.20 Elevated prostate specific antigen [PSA] (principal); R82.89 Other abnormal findings on cytological and histological examination of urine; R31.9 Hematuria, unspecified; Z13.9 Encounter for screening, unspecified
CPT/HCPCS: 99213; G2211

== ENCOUNTER 2025-06-07 13:06 | Outpatient (REF) | payer MEDICARE, SELFPAY ==
--- OUTSIDE RECORDS SUMMARY | 2025-06-07 13:28 | XMS_ITS | Data Portability ---
Author Organization [place] - [facility], Allergy Address [address] [address] Care Team Providers Care Tele Rn Name Role Phone HARRIS PENNY Primary Care Provider Assessment Encounter Date Assessment Date Assessment LastModified by Organization Details LastModified Time 02/10/2024 02/10/2024 Patient was referred for evaluation of left parotid nodule. He recently had ultrasound at [place] showing intraparotid lymph nodes with no concerning [...] Neoplasm of uncertain behavior of parotid gland 57144529 Active 024 ARTURO CONN MD [address] [facility] [address], [place] [place], [address] [facility] - [facility] 14:55:26 Problem Notes None recorded. Procedures Surgical History Date Name Laterality Status Provider Name and Address Organization Details Recorded Time procedure on wrist completed Ca Dawson [place] - [facility] 02/10/2024 14:09:06 Imaging Results None recorded. Procedure [...] Updated DateTime 02/10/2024 170.18 cm 34 kg/m2 12187.54 g Ca Dawson [facility] 02/10/2024 14:32:31 Social History None recorded. Functional Status None recorded. Mental Status None recorded. Family History Nothing Reported. Medical History Condition Response Arthritis Y Hypertension Y Past Encounters Encounter ID Performer Location Encounter Start Date Encounter Closed Date Diagnosis/Indication Diagnosis SNOMED-CT Code Diagnosis ICD10 Code Diagnosis IMO Codes Diagnosis Note [id number] ARTURO CONN MD [facility] [address] [address] 02/10/2024 13:39:06 02/10/2024 14:58:39 Neoplasm of uncertain behavior of parotid gland 13461450 D37.030 Health Concerns Section Related Observation LastModified by Organization Detai ls LastModified Time None Recorded Concern Status LastModified by Organization Details LastModified Time None Recorded Advance Directives Directive None Recorded Payers Insurance Date Sequence Insurance Name Policy Number Policy Glass Covered Member ID Glass Member ID Guarantor Name 02/10/2024 1 [employer] - MEDICARE ADVANTAGE PLAN (MEDICARE REPLACEMENT HMO) [id number] Oswaldo Young [id number] Oswaldo Young Notes Date Note Type Note Provider Name and Address Organization Details Recorded Time 02/10/2024 text/html ROS as noted in the HPI new patient referred for parotid massno symptoms of pain in side of necktobacco - in 1960s 10/24/23 [facility] -13 x 6 x 7 mm left intraparotid lymph node, 11 x 5 x 7 mm right intraparotid lymph node 12/11/22 ct cervical spine 4mm hypodensity left parotid retired from [employer] ARTURO CONN MD [address] [place] [address], [place], [address], [facility] - [facility] 02/10/2024 14:56:17
[2025-06-07 16:25] LABS: MANUAL DIFF FLAG NO
[2025-06-07 16:28] LABS: Hematocrit 44.6 % (42.0-52.0); Hemoglobin 15.0 g/dl (14.0-18.0); Imm Gran Abs Auto 0.04 X10*3/uL (0.00-0.03); Imm Gran Pct Auto 0.4 % (0.0-0.4); Lymphocytes Absolute Auto 1.3 X10*3/uL (1.2-4.9); Mean Corpuscular HGB Conc 33.6 g/dl (31.0-36.0); Mean Corpuscular Hemoglobin 32.5 pg (27.0-33.0); Mean Corpuscular Volume 96.7 fL (80.0-98.0); NRBC Abs Auto 0.000 X10*3/uL (0.0-0.012); NRBC Pct Auto 0.0 /100WBC (0.0-0.2); Platelet Count 298 X10*3/uL (160-400); Red Blood Count 4.61 X10*6/uL (4.60-5.80); White Blood Count 10.5 X10*3/uL (4.8-10.8)
[2025-06-07 16:35] LABS: Appearance Urine Clear; Glucose Urine UA Negative (Negative); PH 6.0 (5.0-9.0); Specific Gravity - Urine 1.020 (1.005-1.025); UMIC TRIGGER UACC YES
[2025-06-07 16:47] LABS: Alanine Aminotransferase 32 U/L (0-40); Albumin Level 5.0 g/dL (3.5-5.0); Alkaline Phosphatase 88 U/L (39-117); Anion Gap 12 (12-20); Aspartate Amino Transferase 34 U/L (5-37); Blood Urea Nitrogen 15 mg/dL (9-16); Calcium 9.6 mg/dL (8.4-10.2); Carbon Dioxide 29 mmol/L (22-29); Chloride 100 mmol/L (96-108); Cholesterol 147 mg/dL (<200); Estimated Glomerular Filt Rate > 60; HDL Cholesterol 43 mg/dL (>40); Iron 88 mcg/dL (45-160); Percent Iron Saturation 29 % (15-50); Potassium 4.3 mmol/L (3.3-5.1); Sodium 137 mmol/L (135-145); Total Iron Binding Capacity 302 mcg/dL (228-428); Total Protein 7.5 g/dL (6.5-8.0); Triglycerides 130 mg/dL (<150); Unsaturated Iron Binding 214 ug/dL
[2025-06-07 17:00] LABS: Prostate Specific Antigen 3.42 ng/mL (<0.05-4.0)
[2025-06-07 17:03] LABS: Ferritin 135 ng/mL (20-250)
[2025-06-07 17:14] LABS: Folate 8.3 ng/mL (> or = 4.0); Vitamin B12 287 pg/mL (200-900)
== END 2025-06-07 13:07 | disposition home or self-care (01) ==
LOC: HO.HMGCLDS 13:06
PROVIDERS: PCP Nurse Practitioner Family; Visit Provider Nurse Practitioner Family
DX: I10 Essential (primary) hypertension (principal); E78.5 Hyperlipidemia, unspecified; D64.9 Anemia, unspecified; R97.20 Elevated prostate specific antigen [PSA]; Z12.5 Encounter for screening for malignant neoplasm of prostate
CPT/HCPCS: 36415; 80053; 80061; 81001; 82607; 82728; 82746; 83540; 84153; 85025

== ENCOUNTER 2025-06-10 10:22 | Outpatient (AMB) | payer MEDICARE, SELFPAY ==
[2025-06-10 11:01] VITALS: BP 120/68; PULSE 78; O2SAT 95; BMI 34.6
--- NOTE | 2025-06-10 11:01 | A.OFFVIS_ITS ---
Vital Signs 06/10/25 11:01 Height 5 ft 7 in Weight 221 lb BMI 34.6 BP 120/68 Blood Pressure Location Lt brachial Position Sitting Pulse 78 Pulse Source Pulse Oximeter Pulse Oximetry (%) 95 Oxygen Delivery Method Room Air Intake Visit Reasons: 6m Follow up Intake Note: Patient presents follow up for cognitive/excessive daytime sleepiness Senior Administrator Support Required: No Accompanied by: Self / Same As Patient Allergies No Known Allergies Allergy (Verified 06/10/25 11:01) HPI Comments Details: 80-yr-old male presents for f/u visit for cognitive difficulties. Pt is accompanied by his , Luz, and dtr, Lynette Mccallum He has had f/u w/ [facility] pulmonology, who advised him to start home nocturnal O2 at 2 lpm via n/c, however he declined to start this. He states he did not feel his respiratory s/s were severe enough to warrant this, as he does not experience coughing, wheezing or shortness of breath a walking. He previously declined home CPAP. His short term memory is a little worse. He did not either the IR ER version of memantine, he stated they both caused dizziness. Daughter reports that the patient is overall inactive and sleeping more during the day, be sleeping well at night. His family continues to try to play games with him, such as Cometa or NextCloud. In June, he is scheduled to undergo another right eye posterior vitreous detachment procedure through [facility]. After this, he plans to undergo cataract repair. 12/03/2024, HPI: Pt was previously unable to complete the in-lab sleep study. Thus, patient underwent 03/14/2024, HST, which demonstrated mild obstructive sleep apnea with nocturnal hypoxemia, with during the 540 minutes of monitoring time, AHI 13 per hour, an O2 pamela 67%, with SpO2 under 90% for 23 minutes of study time, and under 88% for 60 minutes of study time, and average SpO2 94%. Snoring was present for 26% of study time. Patient was given a CPAP machine, however he deny use it. Daughter previously offered patient a wedge pillow, however patient did not use it. He continues to be sleepy during the day and doses off unintentionally. Patient reports his memory is about the same. Daughter states that his long-term memory is great, however his short-term memory is poor. Daughter feels that he needs constant supervision, and should not be left home alone. Daughter states that once when her mother went grocery shopping, and patient was home by himself, patient was repetitively calling his daughter because he had forgotten where his went. states that she tries to bring him to the grocery store, but he sometimes will not come into the store, would rather sit outside on a bench. He is not very physically active. There is a long hallway in their building, which he and his could walk up and down, however he is not likely to do this and he says it it is ?a hike ?. The patient and state that he generally does not need to use his as needed inhaler. He has follow-up with pulmonology in 2 weeks. He does play Miquel with his family, in usually does quite well. He does socialize on a regular basis. Patient previously tried memantine IR, but it was felt it caused dizziness, however daughter is not sure if it was the memantine or his other medications or his other health issues. They are open to trying this. He states he used to work for the old [employer]- he worked there for 30 yrs, he notes there was increased chemical exposures during his last yr of work. 06/23/2023, MR/MR head/brain wo con IMPRESSION: 1. 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 2. 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 [facility] Medical History VIANEY on CPAP Macular hole Pulmonary nodules Atelectasis Mild cognitive impairment Nodule of parotid gland Alzheimer disease Short-term memory loss Testicular hypofunction Lipoma Vitamin D deficiency Insomnia Osteoarthritis Impotence Asthma GERD (gastroesophageal reflux disease) Sleep apnea Surgical History H/O wrist surgery H/O colonoscopy History of esophagogastroduodenoscopy (EGD) Family History Father Stroke Social History Housing: Apartment Patient Tobacco Use Status: Never used Tobacco e-Cigarette/Vaping Use: Never Used Second Hand Smoke Exposure: No service: Yes Current occupational status: retired Cognitive needs: No Hearing needs: No Vision needs: No Physical Exam Vital Signs: Last Vital Signs Pulse 78 06/10/25 11:01 BP 120/68 06/10/25 11:01 Pulse Ox 95 06/10/25 11:01 Oxygen Delivery Method Room Air 06/10/25 11:01 BMI result Body Mass Index 34.6 Const General: cooperative and no acute distress Orientation/consciousness: oriented to person and oriented to place Resp Effort & Inspection: normal respiratory effort and able to speak in complete sentences Neuro Other: Short-term memory lapses, with mild repetitiveness On MMSE: For overlapping pentagon: He nadira only 1 pentagon For the sentence: He wrote ?what days it today? Clock drawing: He performed the initial steps well, such as drawing the clock and writing the numbers, however he struggled to draw the clock hands to show 10 of 2 o'clock, but rather nadira the hands to indicate 2 o'clock General: oriented to person and oriented to place Cranial nerves: Yes CN's II-XII intact bilaterally Psych Appearance: grossly normal Mental Status: mental status grossly normal Speech and movement: Normal speech and movement present Affect: normal affect Attitude: cooperative Orientation What is the (year) (season) (date) (day) (month)?: season Where are we (state) (county) (town or city) (hospital) (floor)?: state, county, hospital/clinic and floor Registration Name of 3 unrelated objects clearly and slowly, then ask patient to repeat all 3 of them. (1st repeat determines score. Make sure they can repeat all three): object 1, object 2 and object 3 Attention & Calculation (CHOOSE ONE) Spell WORLD backwards (DLROW): 2 letters Language Show patient a wristwatch & ask what it is. Repeat for pencil.: watch and pencil Ask the patient to repeat the phrase 'No ifs, ands, or buts' after you.: correct Ask the patient to 'take a piece of paper with their right hand' 'fold paper in half' 'place paper on floor': fold paper in half and place paper on floor Print the sentence 'CLOSE YOUR EYES' on a piece. If patient actually closes eyes then score.: followed written direction Give patient a blank piece of paper & ask to write a sentence. Score if it contains a noun & verb.: sentence contains subject and verb Score Score: 17 Assessment & Plan Assessment & Plan (1) Sleep apnea: Code(s): G47.30 - Sleep apnea, unspecified Category: Medical Qualifiers: Sleep apnea type: obstructive Qualified Code(s): G47.33 - Obstructive sleep apnea (adult) (pediatric) (2) Excessive daytime sleepiness: Code(s): G47.19 - Other hypersomnia Category: Medical (3) Snoring: Code(s): R06.83 - Snoring Category: Medical (4) Nocturnal hypoxemia: Code(s): G47.34 - Idiopathic sleep related nonobstructive alveolar hypoventilation Category: Medical (5) Dementia: Comment: 06/10/2025, MMSE . Code(s): F03.90 - Unspecified dementia, unspecified severity, without behavioral disturbance, psychotic disturbance, mood disturbance, and anxiety Category: Medical Qualifiers: Dementia type: unspecified type Dementia severity: mild Dementia behavioral or psychological symptom: without behavioral, psychotic, or mood disturbance or anxiety Qualified Code(s): F03.A0 - Unspecified dementia, mild, without behavioral disturbance, psychotic disturbance, mood disturbance, and anxiety Plan Reviewed again previous HST results showing mild VIANEY with nocturnal hypoxemia. Patient again declined to use CPAP. Encouraged patient and his to reconsider starting nocturnal O2 supplementation, as recommended by pulmonology. They will rediscuss that his follow-up pulmonary appointment in June. If they do agree to start home nocturnal O2, likely his or somebody else will have to remind or help him to apply the O2. Follow-up with pulmonology as scheduled Patient previously encouraged to trial using a sleep apnea wedge pillow. Encouraged patient and to schedule regular physical activity, such as a short walk after breakfast every day. Discontinue memantine- caused dizziness. May consider Cerefolin supplement, as he would not be a candidate for donepazil d/t this may increase risk for dizziness and syncope. Note: Patient would not be a candidate for a anti amyloid targeted therapy, as his MMSE score has been consistently below 22/30. Hold neuro-psych eval for now- pt is not interested at this time. Continue to engage in regular social and cognitively stimulating activities. f/u in 6 months or sooner prn Coding Level of Care Code Est Pt Level 4 (42765) Diagnoses Obstructive sleep apnea syndrome G47.33 Sleep apnea type: obstructive Excessive daytime sleepiness G47.19 Snoring R06.83 Nocturnal hypoxemia G47.34 Mild dementia without behavioral disturbance, psychotic disturbance, mood disturbance, or anxiety, unspecified dementia type F03.A0 Dementia type: unspecified type Dementia severity: mild Dementia behavioral or psychological symptom: without behavioral, psychotic, or mood disturbance or anxiety
--- OUTSIDE RECORDS SUMMARY | 2025-06-10 12:47 | XMS_ITS | Data Portability ---
Author Organization [place] - [facility], Allergy Address [address] [address] Care Team Providers Care Legal Consultant Name Role Phone HARRIS PENNY Primary Care Provider Assessment Encounter Date Assessment Date Assessment LastModified by Organization Details LastModified Time 02/10/2024 02/10/2024 Patient was referred for evaluation of left parotid nodule. He recently had ultrasound at [place] showing intraparotid lymph nodes with no concerning [...] Abnormal Flag Note LastModifiedBy Organization Detail LastModifiedTime 03/06/2006/06/2023 imagi ng/di agnos tic resul t No observ ation record ed. [email or web address] Not Available 15:51:14 Result Notes None recorded. 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 [place], [address] [facility] - [facility] 14:55:26 Problem Notes None recorded. Procedures Surgical History Date Name Laterality Status Provider Name and Address Organization Details Recorded Time procedure on wrist completed Ca Dawson [place] - [facility] 02/10/2024 14:09:06 Imaging Results None recorded. Procedure [...] Updated DateTime 02/10/2024 170.18 cm 34 kg/m2 42606.54 g Ca Dawson [facility] 02/10/2024 14:32:31 Social History None recorded. Functional Status None recorded. Mental Status None recorded. Family History Nothing Reported. Medical History Condition Response Arthritis Y Hypertension Y Past Encounters Encounter ID Performer Location Encounter Start Date Encounter Closed Date Diagnosis/Indication Diagnosis SNOMED-CT Code Diagnosis ICD10 Code Diagnosis IMO Codes Diagnosis Note [id number] ARTURO CONN MD [facility] [address] [address] 02/10/2024 13:39:06 02/10/2024 14:58:39 Neoplasm of uncertain behavior of parotid gland 22557029 D37.030 Health Concerns Section Related Observation LastModified by Organization Detai ls LastModified Time None Recorded Concern Status LastModified by Organization Details LastModified Time None Recorded Advance Directives Directive None Recorded Payers Insurance Date Sequence Insurance Name Policy Number Policy Glass Covered Member ID Glass Member ID Guarantor Name 02/10/2024 1 [employer] - MEDICARE ADVANTAGE PLAN (MEDICARE REPLACEMENT HMO) [id number] Oswaldo Young [id number] Oswaldo Young Notes Date Note Type Note [...] spine 4mm hypodensity left parotid retired from [employer] ARTURO CONN MD [address] [place] [address], [place], [address], [facility] - [facility] 02/10/2024 14:56:17
== END 2025-06-10 12:02 | disposition home or self-care (01) ==
LOC: HO.HSMS 10:22
PROVIDERS: PCP Nurse Practitioner Family; Visit Provider Nurse Practitioner Family
DX: G47.33 Obstructive sleep apnea (adult) (pediatric) (principal); G47.19 Other hypersomnia; R06.83 Snoring; G47.34 Idiopathic sleep related nonobstructive alveolar hypoventilation; F03.A0 Unspecified dementia, mild, without behavioral disturbance, psychotic disturbance, mood disturbance, and anxiety
CPT/HCPCS: 99214

== ENCOUNTER → 2025-06-10 10:22 | Outpatient (BNVA) | payer MEDICARE, SELFPAY | PROVIDERS: PCP Nurse Practitioner Family; Visit Provider Nurse Practitioner Family | DX: F03.A0 Unspecified dementia, mild, without behavioral disturbance, psychotic disturbance, mood disturbance, and anxiety (principal); G47.33 Obstructive sleep apnea (adult) (pediatric); G47.19 Other hypersomnia; R06.83 Snoring; G47.34 Idiopathic sleep related nonobstructive alveolar hypoventilation | CPT/HCPCS: 99212 ==

== ENCOUNTER 2025-06-17 06:15 | Outpatient (AMB) | payer MEDICARE, SELFPAY ==
--- OUTSIDE RECORDS SUMMARY | 2020-04-11 07:55 | XMS_ITS | Continuity of Care Document ---
Author Organization [facility] Address [address] [place] [address] Phone Care Team Providers Care Appliance Servicer Name Role Phone Derian Chavez OD Unavailable Unavailable Allergies, Adverse Reactions, Alerts Substance Reaction Status Criticality No Known Allergies Active No Inform ation Medications Medication Instructions Dosage Effective Dates (start - stop) Status Comments Advair Diskus 100 mcg-50 mcg/dose powder for inhalation inhale 1 puff by inhalation route 2 times every day in the morning and evening approximately 12 hours apart 1.00 puff - Active Procedures Procedure Date Est Pt Intermediate Eye Exam No dilated macular or fundus exam perfor med OCT-SCODI Posterior Retina Est Pt Intermediate Eye Exam Dilated macular or fundus exam performed Post-op Follow-up Visit Laser Retinal Break Or Hole Ophthalmoscopy Initial OCT-SCODI Posterior Retina Est Pt Comprehensive Eye Exam 9 Dilated macular or fundus exam performed New Pt Intermediate Eye Exam Advance Directives Directive Yes / No Effective Date File Name No Information Encounters Encounter Description Practice Location Reason(s) For Visit Diagnoses Date Provider Providers Copied on Encounter [facility], [address] [place], [place], [id number] , [place] tel:[phone] [place] [address] [place] Foreign body sensation (chief complaint) Ocular pain, right eyePunctate keratitis, right eye Sep-2 0 Scott Menard. [address] [place], [place], [id number] , . tel: [phone] Referring Provider: Derian Engle, [address] [place] [address], [id number] . tel:[phone] [facility], [address] [place] [address], [id number] , [place] tel: [phone] [place] [address] [place] TEA lattice (chief complaint) Unspecified chorioretinal scars, right eyeVitreomacular adhesion, left eyeVitreous degeneration, right eyeSerous detachment of retinal pigment epitheliumPuckering of macula, bilateral Aug- 0 [facility]. [address] [place] [address], [id number] , [place]. tel: [phone] Referring Provider: Sotero Diaz, [address] [place] [address], [id number] . tel:[phone] [facility], [address] [place] [address], [id number] , [place] tel: [phone] [address] TEA PO other (chief complaint) Round hole, right eyeHorseshoe tear of retina without detachment, right eyeLattice degeneration of retina, right eye Nov-1 9 [facility]. [address] [place] [address], [id number] , [place]. tel: [phone] Referring Provider: Sotero Diaz, [address] [place] [address], [address] . tel:[phone] [facility], [address] [place] [address], [id number] , [place] tel: [phone] [place] [address] [place] TEA Retinal Tear (chief complaint) Horseshoe tear of retina without detachment, right eyeRound hole, right eyeLattice degeneration of retina, right eye Oct-3 0-201 9 [facility]. [address] [place] [address], [id number] , . tel: [phone] Referring Provider: Derian Engle, [address] [place] [address], [address] . tel:[phone] [facility], [address] [place] [address], [id number] , tel: [phone] [place] [address] TEA floaters (chief complaint) Horseshoe tear of retina without detachment, right eyeLattice degeneration of retina, right eyeRound hole, right eyeVitreous degeneration, right eyeVitreomacular adhesion, left eyeSerous detachment of retinal pigment epithelium Oct-1 9 Emily Bey. [address] [place] [address], [id number] , . tel: [phone] Referring Provider: Sotero Diaz, [address] [place] [address], [address] . tel:[phone] [facility], [address] [place] [address], [id number] , tel: [phone] [place] [address] TEA Foreign body sensation (chief complaint) Vitreous degeneration, right eyeLattice degeneration of retina, right eyeHorseshoe tear of retina without detachment, right eye Oct-1 9 Scott Menard. [address] [place] [address], [id number] , . tel: [phone] Referring Provider: Derian Engle, [address] [place] [address], [id number] . tel:[phone] Family History Family Member Type Diagnosis Age At Onset No Information Immunizations Vaccine Date Status Comments Flu (split) (3 yrs or older) administered Source: Other Provider Payers Payer name Insurance type Covered constitution party ID Authoriza tion(s) No Information Social History Type Description Quantity Date Captured Comments Alcohol Use Details Caffeine Use Details Tobacco Use Status Ex-cigarette smoker 020 Smoking Status Former smoker Smoking Tobacco Use Details Cigarette: Age Started: 17, Age Stopped: 20, Years Used 3 Cigarette: 0.5 Packs per day, Pack Year: 1.5 Sex Male Chief Complaint And Reason For Visit From encounter dated '04/11/2020 12:55'. Foreign body sensation (chief complaint). Description: The 74 year old male presents for evaluationof Foreign body sensation in the OD. It started about 1 day(s) ago. The symptom is constant. The condition is described as itchy. Pt states walked out of the store and wind flew something in his eye.Has been irritated since. Pt is using Optcon-A. Reason For Referral Reason For Referral No Information Plan Of Treatment Date Type Action Status Patient Education Retinal Detach ment: Care Instructions completed Patient Education Learning About Vitreous Detachment completed Future Order: Radiology Order OC T [place] ([id number]), Collected on: Ordered Future Order: Radiology Order Be rosales Vera (Z-BEE-LIST), Sent on: Sent Future Order: Radiology Order OC T [place] ([id number]), Collected on: Ordered History Of Present Illness Encounter Date Complaint History Of Prese nt Illness Foreign body sensation The 74 ye ar old male presents for evaluation of Foreign body sensation in the OD. It started about 1 day(s) ago. The symptom is constant. The condition is described as itchy. Pt states walked out of the store and wind flew something in his eye. Has been irritated since. Pt is using Optcon-A. lattice The 74 year old male presents for evaluation of lattice in the OD. Pt. is S/P LSR OD 05/16/19. Pt states that vision OD is 90% better, has one floater and blurriness. PO other The 74 year old male presents for a follow up of PO LSR in the OD. Here for FP OD, and DIL OD. Patient claims he is seeing floaters, and fogginess OD, no flashes, but vision is better OD. No flashes or floaters OS . Retinal Tear The 74 year old male presents for evaluation of Retinal Tear in the OD. Pt here for Laser Retinopexy to RT OD. Pt states no changes since last visit. floaters Pt here for eval uation of Retinal Tear OD per Dr. Chavez. The 73 year old male presents for evaluation of floaters in the OD. It started about 2 day(s) ago. The symptom is constant. The condition is not any better. Patient denies flashes. Pt states 1 large floater, and 1 small floater, Floaters moved with eye movement. Pt states large floater has resolved. Foreign body sensation The 73 ye ar old male presents for evaluation of Foreign body sensation in the OD. It started about 2 day(s) ago. The symptom is constant. Pt stated that he was power washing Tuesday and debris flew up in the air and hit OD. Pt stated that Tuesday he used a gtts called [employer] and it did'nt help after irrigating Pt went to Urgent care and was advised they were able to remove some debris but Pt still feels as though there is something in OD. Pt was Rx'd Tobrex 0.3% yesterday and is using Q4h OD. Pt stated that OD is feeling somewhat better but he is still feeling and seeing something in OD with eye movement.DMR Hx: No fbs, no burning. Pt states seeing floaters. Pt denies light flashes. Pt reiterated that this was never something that he felt. Only floaters OD X 2 days - no flashes.Pt saw a larger floater and a smaller floater. The larger floater has resolved. Functional Status Date Functional Assessmen t No Information Instructions Date Instruction Additional Infor tommy Return in as scheduled Related t o Ocular pain, right eye Impression/Plan Related to Punct ate keratitis, right eye Impression/Plan Related to Ocula r pain, right eye 6 months RCE DIL OU OCT OU Relat ed to Unspecified chorioretinal scars, right eye Impression/Plan Related to Vitre omacular adhesion, left eye Impression/Plan Related to Unspe cified chorioretinal scars, right eye Impression/Plan Related to Serou s detachment of retinal pigment epithelium Impression/Plan Related to Vitre ous degeneration, right eye Impression/Plan Related to Pucke ring of macula, bilateral [address] Chapincito Braden for RFL OCT OU dil OU Related to Round hole, right eye Impression/Plan Related to Latti ce degeneration of retina, right eye Impression/Plan Related to Horse shoe tear of retina without detachment, right eye Impression/Plan Related to Round hole, right eye 2 weeks PO DIL OD Related to Hor seshoe tear of retina without detachment, right eye Impression/Plan Related to Horse shoe tear of retina without detachment, right eye Impression/Plan Related to Round hole, right eye NA with Dr. Craig or Dr. Diaz for retinal tear OD. 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, right eye Impression/Plan Related to Horse shoe tear of retina without detachment, right eye Impression/Plan Related to Latti ce degeneration of retina, right eye Impression/Plan Related to Vitre ous degeneration, right eye Impression/Plan Related to Vitre omacular adhesion, left eye Oct- Impression/Plan Related to Vitre ous degeneration, right eye Impression/Plan Related to Round hole, right eye Impression/Plan Related to Latti ce degeneration of retina, right eye Impression/Plan Related to 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
--- OUTSIDE RECORDS SUMMARY | 2025-06-17 06:19 | XMS_ITS | Data Portability ---
Author Organization [place] - [facility], Allergy Address [address] [address] Care Team Providers Care Eyeglass Assembler Name Role Phone HARRIS PENNY Primary Care Provider [phone] Assessment Encounter Date Assessment Date Assessment LastModified by Organization Details LastModified Time 02/10/2024 02/10/2024 Patient was referred for evaluation of left parotid nodule. He recently had ultrasound at [place] showing intraparotid lymph nodes with no concerning [...] Neoplasm of uncertain behavior of parotid gland 10746256 Active 024 ARTURO CONN MD 100 [facility] 100, [facility] [place], [address] [facility] - [facility] 14:55:26 Problem Notes None recorded. Procedures Surgical History Date Name Laterality Status Provider Name and Address Organization Details Recorded Time procedure on wrist completed Ca Dawson [place] - [facility] 02/10/2024 14:09:06 Imaging Results None recorded. [...] Updated DateTime 02/10/2024 170.18 cm 34 kg/m2 10439.54 g Ca Dawson [facility] 02/10/2024 14:32:31 Social History None recorded. Functional Status None recorded. Mental Status None recorded. Family History Nothing Reported. Medical History Condition Response Arthritis Y Hypertension Y Past Encounters Encounter ID Performer Location Encounter Start Date Encounter Closed Date Diagnosis/Indication Diagnosis SNOMED-CT Code Diagnosis ICD10 Code Diagnosis IMO Codes Diagnosis Note [id number] ARTURO CONN MD [facility] [address] [address] 02/10/2024 13:39:06 02/10/2024 14:58:39 Neoplasm of uncertain behavior of parotid gland 70587798 D37.030 Health Concerns Section Related Observation LastModified by Organization Detai ls LastModified Time None Recorded Concern Status LastModified by Organization Details LastModified Time None Recorded Advance Directives Directive None Recorded Payers Insurance Date Sequence Insurance Name Policy Number Policy Glsas Covered Member ID Glass Member ID Guarantor Name 02/10/2024 1 [employer] - MEDICARE ADVANTAGE PLAN (MEDICARE REPLACEMENT HMO) [id number] Oswaldo Young [id number] Oswaldo Young Notes Date Note Type Note Provider Name and Address Organization Details Recorded Time 02/10/2024 text/html ROS as noted in the HPI new patient referred for parotid massno symptoms of pain in side of necktobacco - in 1960s 10/24/23 [facility] -13 x 6 x 7 mm left intraparotid lymph node, 11 x 5 x 7 mm right intraparotid lymph node 12/11/22 ct cervical spine 4mm hypodensity left parotid retired from [employer] ARTURO CONN MD [address] [place] [address], [place], [address], [facility] - [facility] 02/10/2024 14:56:17
--- NOTE | 2025-06-17 07:49 | MHC.PC.OV ---
Intake Visit Reasons: Pre-op Allergies No Known Allergies Allergy (Verified 06/10/25 11:01) Medication List - Last Reconciled 06/17/25 by DANN Hernandez albuterol sulfate 90 mcg/actuation 2 puffs inhalation Q6H PRN cholecalciferol (vitamin D3) 50 mcg PO DAILY famotidine 20 mg PO BEDTIME finasteride 5 mg PO DAILY 90 days fluticasone propion-salmeterol 250-50 mcg/dose (Wixela Inhub) 1 ea inhalation BID PRN losartan-hydrochlorothiazide 50-12.5 mg 1 tab PO DAILY omeprazole 40 mg PO DAILY rosuvastatin 10 mg PO DAILY Tobacco use date assessed: 01/28/25 Dental Screening Dental Screen Date: 01/28/25 HPI Pre-op HPI Details History of Present Illness The patient is a 80 year old individual presenting for a follow-up telehealth visit for preoperative clearance. The patient has a history of a vitrectomy in the early summer of 2024 and is scheduled for a procedure to extract silicone from the right eye on June 25. The patient denies any signs and symptoms of infection, including fevers, chills, nausea, or vomiting. Review of Systems - Constitutional: Denies fevers and chills. - Gastrointestinal: Denies nausea and vomiting. -denies any s/s of infection Plan 1. Preoperative Examination The patient is scheduled for extraction of silicone from the right eye on June 25, which may require general anesthesia. For preoperative clearance, an EKG and laboratory work will be ordered. The patient will be cleared for surgery based on the results. Discussion Notes I discussed the need for preoperative clearance with the patient's daughter for the upcoming eye surgery scheduled on June 25. Given that the procedure may be performed under general anesthesia, I will obtain an EKG and lab work to ensure the patient is safe for surgery. I will provide clearance pending the results of these tests. Patient Instructions - Please complete an EKG as ordered. - Please complete the lab work that was ordered. - These tests are needed to clear you for your eye surgery scheduled for June 25. [facility] Medical History VIANEY on CPAP Macular hole Pulmonary nodules Atelectasis Mild cognitive impairment Nodule of parotid gland Alzheimer disease Short-term memory loss Testicular hypofunction Lipoma Vitamin D deficiency Insomnia Osteoarthritis Impotence Asthma GERD (gastroesophageal reflux disease) Sleep apnea Surgical History H/O wrist surgery H/O colonoscopy History of esophagogastroduodenoscopy (EGD) Family History Father Stroke Social History Housing: Apartment Patient Tobacco Use Status: Never used Tobacco e-Cigarette/Vaping Use: Never Used Second Hand Smoke Exposure: No service: Yes Current occupational status: retired Cognitive needs: No Hearing needs: No Vision needs: No Questionnaire Thrive Questionnaire Date Thrive assessed: 01/28/25 I am a: Patient What is your living situation today?: I have a steady place to live Within the past 12 months, did the food you bought not last and you didn't have the money to get more?: Never true Within the past 12 months, did you worry whether your food would run out before you got money to buy more?: Never true Do you have trouble paying for medicines?: No Do you have trouble getting transportation to medical appointments?: No Do you have trouble paying your heating and electricity bill?: No Do you have trouble taking care of your child, family member or friend?: I choose not to answer this question Do you have trouble with day-to-day activities such as bathing, preparing meals, shopping, managing finances, etc.?: No Are you currently unemployed and looking for a job?: No Are you interested in more education?: No Please select the resources that you would like help with: None Currently or been in a relationship where the following occur: No concerns reported THRIVE Score: 0 TRINIDAD-7 AMB Questionnaire TRINIDAD-7 Date TRINIDAD - 7 assessed: 01/28/25 Source: Developed by Drs. Karthik Espinosa, Ginger Carpio, Augusto Arellano and colleagues, with an educational breanna from [employer]. Physical exam (Primary Care) Tobacco/Smoking Status: Tobacco use Status Tobacco use date assessed 01/28/25 01/28/25 12:45 Patient Tobacco Use Status Never used Tobacco 01/28/25 12:45 e-Cigarette/Vaping Use Never Used 01/28/25 12:45 Thrive Assessment: Date of Thrive Assessment Date Thrive assessed 10/25/24 06/10/25 12:54 Currently or been in a relationship where the following occur: No concerns reported Telehealth Telehealth Telehealth Platform: [facility] Location of provider rendering services: practice address Location of patient: address on file Patient Identification confirmed using: Name, : Yes Telehealth method: video Patient verbally consented to treatment: Yes Patient verbally consented to billing insurance company: Yes Patient informed of any privacy concerns related to visit: Yes Minutes spent on Phone/Video with Pt.: 10 Coding Level of Care Code Tele Est Pt Level 3 (80939) Diagnoses Pre-op evaluation Z01.818 Assessment & Plan Assessment & Plan (1) Pre-op evaluation: Code(s): Z01.818 - Encounter for other preprocedural examination Category: Medical Plan . Orders: Orders ECG 12 lead EKG Today Z01.818 - Encounter for other preprocedural examination Complete Blood Count Auto Diff Today Z01.818 - Encounter for other preprocedural examination Comprehensive Met. Panel Today Z01.818 - Encounter for other preprocedural examination Prothrombin Time INR Today Z01.818 - Encounter for other preprocedural examination Partial Thromboplastin Time Today Z01.818 - Encounter for other preprocedural examination
== END 2025-06-17 08:14 | disposition home or self-care (01) ==
LOC: HO.HMCC 06:16
PROVIDERS: PCP Nurse Practitioner Family; Visit Provider Nurse Practitioner Family
DX: Z01.818 Encounter for other preprocedural examination (principal)

== ENCOUNTER → 2025-06-17 06:15 | Outpatient (REF) | payer MEDICARE, SELFPAY ==
--- NOTE | 2025-06-17 10:29 | ECG_ITS ---
Test Reason : PREOP Blood Pressure : */* mmHG Vent. Rate : 74 BPM Atrial Rate : 74 BPM P-R Int : 190 ms QRS Dur : 80 ms QT Int : 352 ms P-R-T Axes : 0 46 72 degrees QTcB Int : 390 ms Normal sinus rhythm Nonspecific T wave abnormality Abnormal ECG When compared with ECG of 27-Nov-2024 12:08, No significant change was found Referred By: Abdifatah Reyes Electronically Signed By: NANDO CARMONA
[2025-06-17 12:37] LABS: Alanine Aminotransferase 29 U/L (0-40); Albumin Level 4.7 g/dL (3.5-5.0); Alkaline Phosphatase 85 U/L (39-117); Anion Gap 13 (12-20); Aspartate Amino Transferase 31 U/L (5-37); Blood Urea Nitrogen 12 mg/dL (9-16); Calcium 9.5 mg/dL (8.4-10.2); Carbon Dioxide 23 mmol/L (22-29); Chloride 104 mmol/L (96-108); Estimated Glomerular Filt Rate > 60; Potassium 3.7 mmol/L (3.3-5.1); Sodium 136 mmol/L (135-145); Total Protein 7.1 g/dL (6.5-8.0)
[2025-06-17 13:21] LABS: MANUAL DIFF FLAG NO
[2025-06-17 13:24] LABS: Appearance Urine Clear; Glucose Urine UA Negative (Negative); PH 5.5 (5.0-9.0); Specific Gravity - Urine 1.010 (1.005-1.025); UMIC TRIGGER UACC YES
[2025-06-17 13:51] LABS: Hematocrit 40.9 % (42.0-52.0); Hemoglobin 14.0 g/dl (14.0-18.0); INTERNATIONAL NORM RATIO 1.0 (0.9-1.1); Imm Gran Abs Auto 0.04 X10*3/uL (0.00-0.03); Imm Gran Pct Auto 0.4 % (0.0-0.4); Lymphocytes Absolute Auto 1.4 X10*3/uL (1.2-4.9); Mean Corpuscular HGB Conc 34.2 g/dl (31.0-36.0); Mean Corpuscular Hemoglobin 32.9 pg (27.0-33.0); Mean Corpuscular Volume 96.0 fL (80.0-98.0); NRBC Abs Auto 0.000 X10*3/uL (0.0-0.012); NRBC Pct Auto 0.0 /100WBC (0.0-0.2); Platelet Count 267 X10*3/uL (160-400); Prothrombin Time 12.0 SEC (11.2-13.5); Red Blood Count 4.26 X10*6/uL (4.60-5.80); White Blood Count 10.0 X10*3/uL (4.8-10.8)
[2025-06-17 13:53] LABS: Partial Thromboplastin Time 27.1 SEC (26.7-34.1)
== END ==
LOC: HO.CARD 06:15
PROVIDERS: PCP Nurse Practitioner Family; Visit Provider Nurse Practitioner Family
DX: Z01.818 Encounter for other preprocedural examination (principal)
CPT/HCPCS: 36415; 80053; 81001; 81003; 85025; 85610; 85730; 93005

== ENCOUNTER → 2025-06-17 10:29 | Outpatient (BNV) | payer MEDICARE, SELFPAY | PROVIDERS: PCP Nurse Practitioner Family; Visit Provider Internal Medicine | DX: R94.31 Abnormal electrocardiogram [ECG] [EKG] (principal); Z01.818 Encounter for other preprocedural examination | CPT/HCPCS: 93010 ==

== ENCOUNTER 2025-06-24 07:20 | Outpatient (AMB) | payer MEDICARE, SELFPAY ==
--- OUTSIDE RECORDS SUMMARY | 2020-04-11 07:55 | XMS_ITS | Continuity of Care Document ---
Author Organization [facility] Address [address] [place] [address] Phone Care Team Providers Care Whizzer Hand Name Role Phone Derian Chavez OD Unavailable [...] on Encounter [facility], [address] [place], [place], [id number] , [place] [phone] [place] [address] [place] TEA Foreign body sensation (chief complaint) Ocular pain, right eyePunctate keratitis, right eye Sep-2 0 Scott Menard. [address] [place], [place], [id number] , . tel: [phone] Referring Provider: Derian Engle, [address] [place] [address], [id number] . tel:[phone] [facility], [address] [place] [address], [id number] , [place] tel: [phone] [place] [address] [place] TEA lattice (chief complaint) Unspecified chorioretinal scars, right eyeVitreomacular adhesion, left eyeVitreous degeneration, right eyeSerous detachment of retinal pigment epitheliumPuckering of macula, bilateral Aug- 0 [facility]. [address] [place] [address], [id number] , [place]. tel: [phone] Referring Provider: Sotero Diaz, [address] [place] [address], [id number] . tel:[phone] [facility], [address] [place] [address], [id number] , [place] tel: [phone] [address] TEA PO other (chief complaint) Round hole, right eyeHorseshoe tear of retina without detachment, right eyeLattice degeneration of retina, right eye Nov-1 9 [facility]. [address] [place] [address], [id number] , [place]. tel: [phone] Referring Provider: Sotero Diaz, [address] [place] [address], [id number] . tel:[phone] [facility], [address] [place] [address], [id number] , [place] tel: [phone] [place] [address] [place] TEA Retinal Tear (chief complaint) Horseshoe tear of retina without detachment, right eyeRound hole, right eyeLattice degeneration of retina, right eye Oct-3 0-201 9 [facility]. [address] [place] [address], [id number] , . tel: [phone] Referring Provider: Derian Engle, [address] [place] [address], [id number] . tel:[phone] [facility], [address] [place] [address], [id number] , tel: [phone] [place] [address] TEA floaters (chief complaint) Horseshoe tear of retina without detachment, right eyeLattice degeneration of retina, right eyeRound hole, right eyeVitreous degeneration, right eyeVitreomacular adhesion, left eyeSerous detachment of retinal pigment epithelium Oct-1 9 Emily Bey. [address] [place] [address], [id number] , . tel: [phone] Referring Provider: Sotero Diaz, [address] [place] [address], [address] . tel:[phone] [facility], [address] [place] [address], [id number] , tel: [phone] [place] [address]A Foreign body sensation (chief complaint) Vitreous degeneration, right eyeLattice degeneration of retina, right eyeHorseshoe tear of retina without detachment, right eye Oct-1 9 Scott Menard. [address] [place] [address], [id number] , . tel: [phone] Referring Provider: Derian Engle, [address] [place] [address], [address] . tel:[phone] Family History Family Member Type Diagnosis Age At Onset No Information Immunizations Vaccine Date Status Comments Flu (split) (3 yrs or older) administered Source: Other Provider Payers Payer name Insurance type Covered green party ID Authoriza tion(s) No Information Social [...] Future Order: Radiology Order OC T [place] ([id number]), Collected on: Ordered Future Order: Radiology Order Be rosales Vera (Z-BEE-LIST), Sent on: Sent Future Order: Radiology Order OC T [place] ([id number]), Collected on: Ordered History Of Present Illness [...]
--- NOTE | 2025-06-24 07:21 | A.OFFVIS_ITS ---
Intake Visit Reasons: 3-4 M FOLLOW UP W/PSA SET Intake Note: patient presents today for: 3mo/PSA urology medications: finasteride blood thinners: none labs done 06/07/25: PSA 3.42 Mathematical Statistician Required: No Accompanied by: Daughter Allergies No Known Allergies Allergy (Verified 06/24/25 10:11) Medication List - Last Reconciled 06/24/25 by JOHNNY MeansP- albuterol sulfate 90 mcg/actuation 2 puffs inhalation Q6H PRN cholecalciferol (vitamin D3) 50 mcg PO DAILY famotidine 20 mg PO BEDTIME finasteride 5 mg PO DAILY 90 days fluticasone propion-salmeterol 250-50 mcg/dose (Wixela Inhub) 1 ea inhalation BID PRN losartan-hydrochlorothiazide 50-12.5 mg 1 tab PO DAILY omeprazole 40 mg PO DAILY rosuvastatin 10 mg PO DAILY HPI Comments Details: Oswaldo is a pleasant 80-year-old male patient of Dr. Kirkland who was accompanied by his daughter Lynette during [facility]. He has a past medical history of Alzheimer's disease, asthma, GERD, insomnia, osteoarthritis, sleep apnea, and vitamin-D deficiency. He is being followed up on today via telehealth for his hematuria and elevated PSA. In discussion with the patient and his daughter today he reports compliance with 5 mg of finasteride as prescribed. He otherwise denies any bothersome urinary issues or concerns. Recent PSA results were reviewed with the patient and his daughter today as noted and trended below. Previous workup has included an in office cystoscopy for gross hematuria 02/06 which noted no suspicious bladder tumors or abnormalities. Cytology 12/07- few atypical urethral cells Cytology 01/07, 07/09, 11/08, 07/10, 04/11 Negative for high-grade urethral carcinoma. Retroperitoneal ultrasound 12/07 noting right kidney with no calculi, or hydronephrosis noted. There is an anechoic cyst in the mid pole measuring 1.4 x 1.7 x 1.4 cm. Left kidney with no lesions, calculi, or hydronephrosis noted. The bladder is well distended and normal. Bilateral ureteral jets are demonstrated. Prevoid bladder volume is 240 mL. Postvoid bladder volume is 41.4 mL. The prostate is enlarged. It measures approximately [address] urogram 02/06 was also performed previously noting no stones and or hydronephrosis, mild prostate enlargement, and 4 mm nodule at the left lung base. Patient was referred to pulmonology and is currently following up with Dr. Bustillos as planned. He denies urinary urgency, urinary frequency, incontinence, nocturia, hematuria, dysuria, foul smelling urine, changes to urinary stream, flank pain, fever, and or chills. He is happy with his current voiding parameters. PSAs are as follows: 01/07 6.9 12%, 06/09 2.4, 10/08 2.3, 03/10 2.6, 07/10 2.7, 12/09 3.6, 04/11 3.7, 06/11 3.4 We discussed slight decrease in PSA over the last few months we discussed further treatment options and risks and benefits of these treatment options. All questions were answered. He otherwise offers no other issues or concerns at this time. [facility] Medical History VIANEY on CPAP Macular hole Pulmonary nodules Atelectasis Mild cognitive impairment Nodule of parotid gland Alzheimer disease Short-term memory loss Testicular hypofunction Lipoma Vitamin D deficiency Insomnia Osteoarthritis Impotence Asthma GERD (gastroesophageal reflux disease) Sleep apnea Surgical History (Reviewed 01/28/25 @ 12:54 by Abdifatah Reyes [facility]) H/O wrist surgery H/O colonoscopy History of esophagogastroduodenoscopy (EGD) Family History Father Stroke Social History Housing: Apartment Patient Tobacco Use Status: Never used Tobacco e-Cigarette/Vaping Use: Never Used Second Hand Smoke Exposure: No service: Yes Current occupational status: retired Cognitive needs: No Hearing needs: No Vision needs: No Review of Systems Const Reports as per HPI Eyes Reports no additional complaints ENT Reports no additional complaints Card Reports no additional complaints Resp Reports as per HPI GI Reports as per HPI Reports as per HPI Neuro Reports as per HPI Psych Reports as per HPI Endo Reports no additional complaints Physical Exam Const General: cooperative Orientation/consciousness: oriented to person Resp Effort & Inspection: able to speak in complete sentences Neuro General: oriented to person Psych Attitude: cooperative Thought content: Normal thought content present Insight: Limited insight present (Psych) Judgement: Limited judgement present (Psych) Telehealth Telehealth Telehealth Platform: [employer] Location of provider rendering services: practice address Location of patient: address on file Patient Identification confirmed using: Name, : Yes Telehealth method: voice only Patient verbally consented to treatment: Yes Patient verbally consented to billing insurance company: Yes Patient informed of any privacy concerns related to visit: Yes Minutes spent on Phone/Video with Pt.: 20 Assessment & Plan Assessment & Plan (1) Elevated PSA: Code(s): R97.20 - Elevated prostate specific antigen [PSA] Category: Medical (2) Abnormal urine cytology: Code(s): R82.89 - Other abnormal findings on cytological and histological examination of urine Category: Medical (3) Hematuria: Code(s): R31.9 - Hematuria, unspecified Category: Medical Plan Recent PSA results reviewed with the patient and his daughter today; as noted above. He currently denies any bothersome urinary issues or concerns. He reports be happy with current voiding parameters. Continue finasteride as prescribed. We did discussed slight decrease in PSA; will continue with surveillance monitoring All questions were answered. Will continue with surveillance monitoring at this time. Follow-up in 6 months with PSA; or sooner with any issues, concerns, and or questions. Orders: Orders Prostate Specific Antigen 6 Months R97.20 - Elevated prostate specific antigen [PSA] Patient Instructions: The patient had an opportunity to ask questions regarding the treatment plan. All questions were answered. Physical exam, labs, and imaging were discussed and reviewed in detail. As well as risks, benefits, and discussion of treatment choices. No major barriers to understanding were identified. The patient expressed understanding and agreement with the above treatment plan. The patient was made aware they should contact our office by phone for worsening of their current condition, the appearance of new symptoms, or with any questions or concerns. Compliance is encouraged with any medications and follow up testing that is ordered. It is a privilege to be allowed the opportunity to participate in? your urological care.? Again, if you have any questions or concerns If you have any questions or concerns please do not hesitate to contact me. The office is [phone]. This note is constructed using voice recognition software. While every effort has been made to ensure accuracy pamphlet distributor errors may have been included. Yours sincerely, DANN Means Coding Level of Care Code Tele Est Pt Level 3 (44387) Complex visit Add On G2211 Diagnoses Elevated PSA R97.20 Abnormal urine cytology R82.89 Hematuria R31.9
--- OUTSIDE RECORDS SUMMARY | 2025-06-24 07:22 | XMS_ITS | Data Portability ---
Author Organization [place] - [facility], Allergy Address [address] [address] Care Team Providers Care Chairman President And Chief Executive Officer Name Role Phone HARRIS PENNY Primary Care Provider Assessment Encounter Date Assessment Date Assessment LastModified by Organization Details LastModified Time 02/10/2024 02/10/2024 Patient was referred for evaluation of left parotid nodule. 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 Procedures Surgical History Date Name Laterality Status Provider Name and Address Organization Details Recorded Time procedure on wrist completed Ca Dawson [place] - [facility] 02/10/2024 14:09:06 Imaging Results None recorded. Procedure [...] Updated DateTime 02/10/2024 170.18 cm 34 kg/m2 41810.54 g Ca Dawson [facility] 02/10/2024 14:32:31 Social History None recorded. Functional Status None recorded. Mental Status None recorded. Family History Nothing Reported. Medical History Condition Response Arthritis Y Hypertension Y Past Encounters Encounter ID Performer Location Encounter Start Date Encounter Closed Date Diagnosis/Indication Diagnosis SNOMED-CT Code Diagnosis ICD10 Code Diagnosis IMO Codes Diagnosis Note [id number] ARTURO CONN MD [facility] [address] [address] 02/10/2024 13:39:06 02/10/2024 14:58:39 Neoplasm of uncertain behavior of parotid gland 39786338 D37.030 Health Concerns Section Related Observation LastModified by Organization Detai ls LastModified Time None Recorded Concern Status LastModified by Organization Details LastModified Time None Recorded Advance Directives Directive None Recorded Payers Insurance Date Sequence Insurance Name Policy Number Policy Glass Covered Member ID Glass Member ID Guarantor Name 02/10/2024 1 [employer] - MEDICARE ADVANTAGE PLAN (MEDICARE REPLACEMENT HMO) [id number] Oswaldo Young [id number] Oswaldo Young Notes Date Note Type Note Provider Name and Address Organization Details Recorded Time 02/10/2024 text/html ROS as noted in the HPI new patient referred for parotid massno symptoms of pain in side of necktobacco - in 1960s 10/24/23 [facility] -13 x 6 x 7 mm left intraparotid lymph node, 11 x 5 x 7 mm right intraparotid lymph node 12/11/22 ct cervical spine 4mm hypodensity left parotid retired from [employer] ARTURO CONN MD [address] [place] [address], [place], [address], [facility] - [facility] 02/10/2024 14:56:17
== END 2025-06-24 08:13 | disposition home or self-care (01) ==
LOC: HO.HUSH 07:20
PROVIDERS: PCP Nurse Practitioner Family; Visit Provider Nurse Practitioner Family
DX: R97.20 Elevated prostate specific antigen [PSA] (principal); R82.89 Other abnormal findings on cytological and histological examination of urine; R31.9 Hematuria, unspecified
CPT/HCPCS: 99213; G2211

== ENCOUNTER → 2025-06-24 07:20 | Outpatient (BNVA) | payer MEDICARE, SELFPAY | PROVIDERS: PCP Nurse Practitioner Family; Visit Provider Nurse Practitioner Family | DX: R91.8 Other nonspecific abnormal finding of lung field (principal); J98.11 Atelectasis; R41.3 Other amnesia; G47.34 Idiopathic sleep related nonobstructive alveolar hypoventilation; J44.9 Chronic obstructive pulmonary disease, unspecified; R31.9 Hematuria, unspecified; R97.20 Elevated prostate specific antigen [PSA]; R82.89 Other abnormal findings on cytological and histological examination of urine | CPT/HCPCS: 99212 ==

== ENCOUNTER 2025-06-24 14:28 | Outpatient (AMB) | payer MEDICARE, SELFPAY ==
--- OUTSIDE RECORDS SUMMARY | 2020-04-11 07:55 | XMS_ITS | Continuity of Care Document ---
Author Organization [facility] Address [address] [place] [address] Phone Care Team Providers Care Shift Production Associate Name Role Phone Derian Chavez OD Unavailable [...] on Encounter [facility], [address] [place], [place], [id number] , [place] [phone] [place] [address] TEA Foreign body sensation (chief complaint) Ocular pain, right eyePunctate keratitis, right eye Sep-2 0 Scott Menard. [address] [place], [place], [id number] , . tel: [phone] Referring Provider: Derian Engle, [address] [place] [address], [id number] . tel:[phone] [facility], [address] [place] [address], [id number] , [place] tel: [phone] [place] [address] [place] TEA lattice (chief complaint) Unspecified chorioretinal scars, right eyeVitreomacular adhesion, left eyeVitreous degeneration, right eyeSerous detachment of retinal pigment epitheliumPuckering of macula, bilateral Aug- 0 [facility]. [address] [place] [address], [id number] , [place]. tel: [phone] Referring Provider: Sotero Diaz, [address] [place] [address], [id number] . tel:[phone] [facility], [address] [place] [address], [id number] , [place] tel: [phone] [address] TEA PO other (chief complaint) Round hole, right eyeHorseshoe tear of retina without detachment, right eyeLattice degeneration of retina, right eye Nov-1 9 [facility]. [address] [place] [address], [id number] , [place]. tel: [phone] Referring Provider: Sotero Diaz, [address] [place] [address], [id number] . tel:[phone] [facility], [address] [place] [address], [id number] , [place] tel: [phone] [place] [address] [place] TEA Retinal Tear (chief complaint) Horseshoe tear of retina without detachment, right eyeRound hole, right eyeLattice degeneration of retina, right eye Oct-3 0-201 9 [facility]. [address] [place] [address], [id number] , . tel: [phone] Referring Provider: Derian Engle, [address] [place] [address], [id number] . tel:[phone] [facility], [address] [place] [address], [id number] , tel: [phone] [place] [address] [address] TE[place] floaters (chief complaint) Horseshoe tear of retina without detachment, right eyeLattice degeneration of retina, right eyeRound hole, right eyeVitreous degeneration, right eyeVitreomacular adhesion, left eyeSerous detachment of retinal pigment epithelium Oct-1 9 Emily Bey. [address] [place] [address], [id number] , . tel: [phone] Referring Provider: Sotero Diaz, [address] [place] [address], [id number] . tel:[phone] [facility], [address] [place] [address], [id number] , tel: [phone] [place] [address] TEA Foreign body sensation (chief complaint) Vitreous degeneration, right eyeLattice degeneration of retina, right eyeHorseshoe tear of retina without detachment, right eye Oct-1 9 Scott Menard. [address] [place] [address], [id number] , . tel: [phone] Referring Provider: Derian Engle, [address] [place] [address], [address] . tel:[phone] Family History Family Member Type Diagnosis Age At Onset No Information Immunizations Vaccine Date Status Comments Flu (split) (3 yrs or older) administered Source: Other Provider Payers Payer name Insurance type Covered alliance party ID Authoriza tion(s) No Information Social [...] Future Order: Radiology Order OC T [place] ([id number]), Collected on: Ordered Future Order: Radiology Order Be rosales Vera (Z-BEE-LIST), Sent on: Sent Future Order: Radiology Order OC T [place] ([id number]), Collected on: Ordered History Of Present Illness [...]
[2025-06-24 14:43] VITALS: BP 122/64; PULSE 70; O2SAT 96; BMI 35.0
--- NOTE | 2025-06-24 14:43 | MHC.OFFVIS ---
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 Apparently the patient underwent a CT scan of the abdomen pelvis and was noted to have a small pulmonary nodule measuring 4 mm in size and is lower lung zones. The patient has not had any formal imaging studies of the chest however. Therefore is difficult to further address the pulmonary nodule in view of not being able to evaluate the whole lung parenchyma. The patient did also have a CT scan of the spine the cervical spine sometime in the spring that actually also demonstrated hypodensity, also measuring 4 mm on the parotid gland. This is something that may be have to be further evaluated as well. The patient currently is doing well from a respiratory status therefore we will hold off on any imaging studies. Will plan to do a formal CT scan of the chest to better address the pulmonary finding however. Once he does get the formal CT scan of the chest will review all the images together and make sure that this process is not progressing. 06/13/2023 the patient is here for a pulmonary follow-up visit. Overall the patient has been doing well. He denies any respiratory complaints. He did undergo a formal CT scan of the chest which we personally reviewed. Has not been officially been read yet. The patient has multiple pulmonary nodules in the largest nodule measuring 5-6 mm in size in the right hemithorax. In addition to that has numerous other nodules. More significant is the degree of atelectasis that he has in the right middle lobe area. Moderate severity. We did talk about ways to try to expand that right middle lobe. he is going to be provide an Acapella valve for CPT and also work on deep breathing exercises. Will plan to repeat the CT scan in 6 months to assess the degree of atelectasis. If the patient has atelectasis worsens or if he becomes symptomatic then an airway survey with bronchoscopy will be warranted. Otherwise regarding the pulmonary nodules that do not appear to be concerning in appearance. However, will require a 2 year follow-up altogether. In addition, the patient did have a cervical CT scan that we had discussed before that appeared to have a 4 mm hypodensity nodular density in the parotid gland. He will be following up with his primary care doctor soon so therefore they can discuss further evaluation for that during that visit. 12/19/2023 the patient is here for a pulmonary follow-up visit. Overall the patient has been doing well. Denies any underlying respiratory complaints. We did talk about trying to expand his atelectatic lung. Although he really did not use the Acapella valve. He did have a repeat CT scan of the chest which we personally reviewed and compared to his previous 1. his most recent CT scan has not been officially read. The largest nodule measuring 6 mm in size. I did compare the pulmonary nodules. Seems like the metoprolol pulmonary nodule slightly bigger in size. Still with well-circumscribed margins. There the nodular densities have been stable in size. Will have to wait for the final read on the CT scan. Based on the increased size of the nodular density will likely have to repeat the CT scan and treated 6 months. The patient does have a rescue inhaler. He has not had to use it. We did talk about increasing his exercise activity since he still has the atelectasis of the right middle lobe area. He is going to start walking more regularly and working on deep breathing exercises. 04/02/2024 the patient is here for a pulmonary follow-up visit. Overall he is doing well. Continues to have dyspnea on exertion. [id number] severity. Also has gained some weight. We did talk about the importance of exercise and weight management. The patient is motivated and will start walking soon. We did talk about different breathing exercises as well. The patient will do well with an Acapella valve to cleaning mucus secretions. We did review his CT scan of the chest that he had back in 12/05/2023 demonstrating pulmonary nodules. Will go ahead and plan to repeat the CT scan in 12/04/2024 around that area to make sure that the nodules are stable. 06/25/2024 the patient is here for pulmonary follow-up visit. Overall he is doing okay. Still having some dyspnea on exertion but mild in severity. He unfortunately is not very active and is not exercising regularly. In addition to that he has been struggling with CPAP. He does not tolerate the mask. I did provide him with a new F 40 mask that he could try specially since his last softer hopefully can tolerated better. We did again reviewed his sleep study demonstrating moderate sleep apnea with severe hypoxia. He understands that the hypoxia can lead to worsening dementia and also increase wrapped cardiovascular risk. Therefore he is willing to try during the daytime to get used to it and then start using it at nighttime. As far as the pulmonary nodules last CT scan demonstrating the nodules was back in 12/05/2023. Will go ahead and get a CT scan in 12/04/2024 will follow-up sometime after that. 12/24/2024 the patient is here for a pulmonary follow-up visit. Overall he is doing good. The patient has issues with headaches in the morning and also been having issues with memory loss. He has a history of asthma. Will go ahead and request an overnight oximetry to assess any evidence of hypoxia. The patient continues use his respiratory medications as prescribed. Just uses it as needed. He has not required it often. He is considering using it before exercise which is okay. Usually 15 minutes before. We did review his CT scan of the chest done in 2024. It appears that he has multiple pulmonary nodules largest 1 measuring between 5-6 mm in size along with some scarring and atelectasis in the right hemithorax. 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 Will go ahead and have him repeat the CT scan in a year's time to make sure the nodules continue stable and the scarring maintain stable as well. Will follow-up in 6 months to make sure we follow-up with the overnight test in case he is on oxygen. 06/24/2025 the patient is here for pulmonary follow-up visit. Overall the patient is doing okay. He does complain of headaches in the morning and has some issues with his memories. The last time we did do overnight oximetry he did desaturate significantly. We had ordered oxygen for him but he was not ready at that time. Will go ahead and order the overnight oximetry again. Because I do believe at this point the patient is agreeable to start oxygen therapy. Once we get the results I will let him know so we can add an addendum to note in order the oxygen. The patient understands that he just be at nighttime. He can try and see if it provides some relief especially with the headaches in the memory impairment. From a respiratory status otherwise is doing okay. His last CT scan demonstrating stable pulmonary nodules. He is scheduled for another CAT scan in November 2025. In the meantime we also talked about the elevated hemidiaphragm on the right in the importance of walking and starting himself to allow his lungs to expand and help him with the atelectasis that is buildup with time. Otherwise the patient is doing well will follow-up in the summer of 2025 after his CAT scan if any issues arise he can always call for further recommendations. [facility] Medical History (Updated 06/24/25 @ 15:08 by Woody Bustillos MD) COPD (chronic obstructive pulmonary disease) VIANEY on CPAP Macular hole Pulmonary nodules Atelectasis Mild cognitive impairment Nodule of parotid gland Alzheimer disease Short-term memory loss Testicular hypofunction Lipoma Vitamin D deficiency Insomnia Osteoarthritis Impotence Asthma GERD (gastroesophageal reflux disease) Sleep apnea Surgical History H/O wrist surgery H/O colonoscopy History of esophagogastroduodenoscopy (EGD) Family History Father Stroke Social History Housing: Apartment Patient Tobacco Use Status: Never used Tobacco e-Cigarette/Vaping Use: Never Used Second Hand Smoke Exposure: No service: Yes Current occupational status: retired Cognitive needs: No Hearing needs: No Vision needs: No Review of Systems Const Denies chills, Reports daytime sleepiness, Denies fever(s) and Reports snoring ENT Reports no additional complaints Card Reports no additional complaints, Denies syncope and Reports dyspnea on exertion Resp Denies cough, Reports dyspnea on exertion, Reports snoring and Denies wheezing GI Denies abdominal pain and Denies heartburn Skin/Breast Denies rash Neuro Denies syncope and Reports memory loss Psych Reports memory loss Carlos/Lymph Denies lymphadenopathy Aller/Immun Denies wheezing Physical Exam Vital Signs: Last Vital Signs Pulse 70 06/24/25 14:43 BP 122/64 06/24/25 14:43 Pulse Ox 96 06/24/25 14:43 Oxygen Delivery Method Room Air 06/24/25 14:43 BMI result Body Mass Index 35.0 Const General: comfortable HEENT Head: Yes normocephalic Eyes General: appearance normal, both eyes and all related structures Neck Neck: Yes supple Chest Chest palpation & inspection: normal inspection of the chest Resp Effort & Inspection: normal respiratory effort Auscultation: diminished lung sounds Cardio Rate: regular rate Rhythm: regular rhythm Heart sounds: S1 normal heart sound present and S2 normal heart sound present GI Palpation (GI): Soft to palpation Skin General skin exam: no rashes or lesions noted Extrem General: Yes no clubbing, cyanosis or edema Assessment & Plan Assessment & Plan (1) Atelectasis: Code(s): J98.11 - Atelectasis Category: Medical (2) Pulmonary nodules: Code(s): R91.8 - Other nonspecific abnormal finding of lung field Category: Medical (3) Short-term memory loss: Code(s): R41.3 - Other amnesia Category: Medical (4) Nocturnal hypoxemia: Code(s): G47.34 - Idiopathic sleep related nonobstructive alveolar hypoventilation Category: Medical (5) COPD (chronic obstructive pulmonary disease): Code(s): J44.9 - Chronic obstructive pulmonary disease, unspecified Category: Medical Plan CPT with acapella valve and deep breathing exercises repeat CT chest in November 2025 LONA as needed and prior to exercise Overnight oximetry F/U 6 months Orders: Orders Overnight Pulse Oximetry Today J44.9 - Chronic obstructive pulmonary disease, unspecified Coding Level of Care Code Complex visit Add On G2211 Diagnoses Atelectasis J98.11 Pulmonary nodules R91.8 Short-term memory loss R41.3 Nocturnal hypoxemia G47.34 COPD (chronic obstructive pulmonary disease) J44.9 Time Spent (min) 17
== END 2025-06-24 15:15 | disposition home or self-care (01) ==
LOC: HO.HPS 14:28
PROVIDERS: PCP Nurse Practitioner Family; Visit Provider Hospitalist
DX: J98.11 Atelectasis (principal); R91.8 Other nonspecific abnormal finding of lung field; R41.3 Other amnesia; G47.34 Idiopathic sleep related nonobstructive alveolar hypoventilation; J44.9 Chronic obstructive pulmonary disease, unspecified
CPT/HCPCS: 99213; G2211